=== PATIENT | female | born 1945 | race Caucasian/White ===

== ENCOUNTER → 2020-04-17 08:15 | Outpatient (REF) | payer OTHER, SELFPAY ==
--- NOTE | 2020-04-17 08:30 | CA_ITS ---
Transthoracic Echocardiogram Patient (Last, First, Middle): Klaudia Dow M Gender: Female Date of : 1945 Age: 74 Procedure Date: 04/17/2020 Procedure Type: Transthoracic Echocardiogram Location: OP Height: 165.1 cm Weight: 117.94 kg BSA: 2.21 m2 Heart Rate: bpm BP: 110 / 60 mmHg Quality Control Checker: Chuck MD: Iveth Cowart MD Catering Driver: Gordon Reveles MD Symptoms: [facility] [place] [facility] [place] Study Quality: Technically Difficult ECG Rhythm: Sinus Conclusions: - 1. Normal LV systolic function with grade 1 diastolic dysfunction 2. Normal cardiac valvular Doppler 3. Normal RV systolic pressure 4. No pericardial effusion Findings Procedure Information Contrast agent, definity, is being given per protocol without apparent complications. Left Ventricle Normal left ventricular size, thickness, and systolic function. The visually estimated ejection fraction is between 60-65%. Spectral Doppler is indicative of an impaired relaxation filling pattern. E/E prime ratio is <8, consistent with normal filling pressures. Evidence suggests grade I (mild) diastolic dysfunction. Right Ventricle Normal right ventricular cavity size and systolic function. Atria Both atria are normal in size. Interatrial shunt cannot be excluded. Aortic Valve The aortic valve structure and function is likely normal. There is no aortic valve stenosis. There is no aortic valve regurgitation. Mitral Valve Likely normal mitral valve structure and function. There is trace mitral valve regurgitation. There is no mitral valve stenosis. Pulmonic Valve The pulmonic valve was not well visualized. Tricuspid Valve The tricuspid valve was not well visualized. There is trace tricuspid valve regurgitation. The right ventricular systolic pressure is normal. The right ventricular systolic pressure is 23 mmHg. There is no evidence of pulmonary hypertension. Great Vessels The aorta was not well visualized. The pulmonary artery was not well visualized. Venous The inferior vena cava was not well visualized. Pericardium/Pleural There is no evidence of pericardial effusion. Prior Study Comparison No prior study available for comparison. Measurements 2D Linear Measurements RVIDd: 2.98 RVIDd Index: 1.35 IVSd: 0.93 0.6-0.9/0.6-1.0 cm LVIDd: 5.43 3.9-5.3/4.2-5.9 cm LVIDd Index: 2.46 2.4-3.2/2.2-3.1 cm/m2 LVIDs: 3.42 2.0-3.6 cm LVPWd: 0.95 0.7-1.1 cm Ao Root: 3.20 2.1-3.5 cm LA Diam: 4.30 2.7-3.8/3.0-4.0 cm LAIDs Index: 1.95 1.5-2.3 cm/m2 LV Mass: 239.07 67-162/88-224 g LV Mass Index: 108.18 43-95/49-115 g/m2 LVOT Diam: 2.00 3.0+(-)1.3 cm 2D Systolic Function EF 4C: 72.00 >55% EF 2C: 72.60 >55% EF BiP: 71.40 >55% Mitral Valve MV Pk E: 0.63 MV PK A: 0.86 MV Decel Time: 194.00 E/A: 0.70 E'Lateral: 8.99 E'Medial: 5.80 E/E' Med: 10.80 E/E' Lat: 7.00 Aortic Valve AoV Pk Nilson: 1.75 AoV Mn Nilson: 1.43 AoV VTI: 0.33 AoV Pk Grad: 12.00 Aov Mn Grad: 9.00 ROSSY Cont.VTI: 2.82 LVOT LVOT Pk Nilson: 1.77 LVOT Mn Nilson: 1.01 LVOT VTI: 0.30 LVOT Pk Grad: 13.00 LVOT Mn Grad: 5.00 LVOT Diam: 2.00 LVOT Area: 3.14 Diastolic Function MV Pk E: 0.63 MV Pk A: 0.86 E/A: 0.70 E'Medial: 5.80 E/E' Med: 10.80 E' Laterial: 8.99 E/E' Lat: 7.00 Tricuspid Valve TR Pk Nilson: 2.22 TR Pk Grad: 20.00 RA Press: 3.00 RVSP: 23.00 Great Vessels Aorta Ao Root-2D: 3.20 2.0-3.7 cm Ao Asc: 3.40 2.1-3.4 cm Ao Arch: 3.10 Updated in Other Vendor System with Status of Final Gordon Reveles MD electronically signed on 04/17/2020 3:35:59 PM with status of Final
== END ==
LOC: HO.CARD 08:15
PROVIDERS: PCP Internal Medicine; Visit Provider Internal Medicine
DX: R07.2 Precordial pain (principal)
CPT/HCPCS: 93306; Q9957

== ENCOUNTER → 2020-04-22 14:28 | Outpatient (BNVA) | payer OTHER, SELFPAY | PROVIDERS: PCP Internal Medicine; Referring Provider Internal Medicine; Visit Provider Internal Medicine | DX: Z76.89 Persons encountering health services in other specified circumstances (principal) ==

== ENCOUNTER → 2020-04-30 07:45 | Outpatient (REF) | payer OTHER, SELFPAY ==
--- NOTE | 2020-04-30 | NM_ITS ---
Lexiscan Myocardial perfusion study Indication: Chest pain, abnormal EKG, assess for coronary disease and ischemia Technique: The patient was brought in for a Lexiscan perfusion study on 04/30/2020 and was injected 0.4 mg of Lexiscan intravenously. Within a minute of this injection 40 mCi of sestamibi was given intravenously. Images were obtained using the SPECT gamma camera interlaced with the gating device. Images were obtained in supine position. Resting perfusion study was performed on 05/01/2020. Patient was administered 40 mCi of sestamibi intravenously at rest. Images were then obtained in supine position. Total DLP 165mGy-cm. Images were processed with the software and compared side to side in short axis, horizontal long axis and vertical long axis views. Findings: Raw acquisition was reviewed. The stress perfusion study showed no significant perfusion abnormality. Both uncorrected as well as CT attenuation corrected images were reviewed. The gated study shows normal LV systolic function with calculated LVEF of >75%. LV cavity is normal in size. The gated study shows normal wall thickening and contraction of segments. Resting study shows no significant perfusion abnormality. Gating at rest reveals normal wall motion with ejection fraction at > 75%. The findings are consistent with no reversible or fixed perfusion abnormality. Impression: 1. Myocardial perfusion imaging study shows normal myocardial perfusion. No evidence of any ischemia or infarction. 2. Gated LVEF is > 75%. 3. Transient ischemic dilatation not present. EKG component of the test reported separately.
--- NOTE | 2020-04-30 07:57 | CA_ITS ---
Acquisition Time: 2020-04-30 08:09:05 Total Exercise Time: 00:02:00 Test Indications: Chest Pain Medications: ASA ALLOPURINOL GLIPIZIDE HCTZ INSULIN LOSARTAN MAGNESIUM OMEPRAZOLE Protocol: LEXISCAN Max HR: 114 BPM 77% of Pred: 147 BPM Max BP: 130/088 mmHG Max Work Load: 1.0 METS Pharmacological stress test using Lexiscan while sitting and kicking her feet. Tolerated well. Denies any anginal sx. EKG without any arrhythmias, non-diagnostic for ischemia. Nuclear images to follow. Normotensive response to test. Test reviewed with Dr. Hill Referred By: Vladimir Hill Overread By: Tamie Tomas
== END ==
LOC: HO.CARD 07:45
PROVIDERS: Visit Provider Internal Medicine
DX: R07.2 Precordial pain (principal)
CPT/HCPCS: 78452; 93017; A9500; J0280; J2785

== ENCOUNTER → 2020-05-11 11:51 | Outpatient (BNVA) | payer OTHER, SELFPAY | PROVIDERS: PCP Internal Medicine; Referring Provider Internal Medicine; Visit Provider Internal Medicine | DX: Z76.89 Persons encountering health services in other specified circumstances (principal) ==

== ENCOUNTER 2020-07-26 06:30 | Emergency (ER) | payer OTHER, SELFPAY ==
[2020-07-26 06:43] VITALS: BP 127/77; PULSE 98; RESP 17; TEMP 36.9; O2SAT 95; BMI 43.2
--- NOTE | 2020-07-26 07:06 | ECG_ITS ---
Test Reason : SOB Blood Pressure : / mmHG Vent. Rate : 096 BPM Atrial Rate : 096 BPM P-R Int : 176 ms QRS Dur : 076 ms QT Int : 362 ms P-R-T Axes : 028 -20 035 degrees QTc Int : 457 ms Normal sinus rhythm Low voltage QRS Borderline ECG When compared with ECG of 06-JAN-2015 16:11, No significant change was found Referred By: Shaina Hilliard Electronically Signed By:Kota Ramos
--- NOTE | 2020-07-26 07:07 | ED_ITS ---
HPI - Nausea/Vomiting/Diarrhea General Chief complaint: Nausea/Vomiting/Diarrhea Stated complaint: SOB Time Seen by Provider: 07/26/20 06:57 Source: patient Mode of arrival: ambulatory Limitations: no limitations History of Present Illness HPI Narrative: Patient comes to emergency room complaining of nausea vomiting and diarrhea for 5 days. Patient also complaining of diffuse abdominal cramping. Patient states for the last 5 days she has been unable to eat or drink due to the nausea and vomiting. Patient states that she was diagnosed with COVID-19 on July 13. From that time until last week she was doing well. Patient denies any respiratory symptoms, states the coughing is stable, no shortness of breath, no chest pain MD elicited complaint: nausea, vomiting, diarrhea and abdominal pain (Cramping) Related Data Home Medications Medication Instructions Recorded Confirmed allopurinol 300 mg tablet 300 mg PO DAILY 04/22/20 05/11/20 aspirin 81 mg chewable tablet 1 tab PO DAILY 04/22/20 05/11/20 docusate sodium 100 mg capsule 100 mg PO BID 04/22/20 05/11/20 exenatide microspheres 2 mg/0.85 2 mg SUBCUT QWEEK 04/22/20 05/11/20 mL subcutaneous auto-injector glipizide 5 mg tablet 10 mg PO BID 04/22/20 05/11/20 hydrochlorothiazide 25 mg tablet 25 mg PO DAILY 04/22/20 05/11/20 insulin aspart U-100 100 unit/mL 2 - 12 unit SUBCUT TID 04/22/20 05/11/20 (3 mL) subcutaneous pen insulin detemir U-100 100 unit/mL 42 unit SUBCUT BEDTIME 04/22/20 05/11/20 (3 mL) subcutaneous pen losartan 100 mg tablet 100 mg PO DAILY 04/22/20 05/11/20 magnesium oxide 400 mg (241.3 mg 400 mg PO DAILY 04/22/20 05/11/20 magnesium) tablet nystatin 100,000 unit/gram topical TOPICAL BID 04/22/20 05/11/20 cream omeprazole 20 mg capsule,delayed 20 mg PO QAM 04/22/20 05/11/20 release tramadol 50 mg tablet 50 mg PO Q12H PRN 04/22/20 05/11/20 Previous Rx's Medication Instructions Recorded cefpodoxime 200 mg PO BID #14 tab 07/26/20 ondansetron HCl [Zofran] 4 mg PO Q6H PRN #14 tab 07/26/20 Allergies Allergy/AdvReac Type Severity Reaction Status Date / Time codeine [CODEINE] Allergy Intermediate NAUSEA & Verified 07/26/20 06:57 VOMITING, vomiting lisinopril [LISINOPRIL] Allergy Intermediate COUGH, Verified 07/26/20 06:57 Coughing sulfamethoxazole Allergy Intermediate RASH Verified 07/26/20 06:57 [From BACTRIM] Review of Systems Review of Systems: Constitutional : No Weight loss, No Fever, No Chills, No Night Sweats, No Fatigue, No Malaise ENT/Mouth : No Hearing loss, No Ear Pain, No Nasal Congestion, No Sinus Pain, No Hoarseness, No sore throat, No Rhinorrhea, No Swallowing Difficulty Eyes: No Eye Pain, No Swelling, No Redness, No Foreign Body, No Discharge, No Vision Changes Cardiovascular : No Chest Pain, No SOB, No Dyspnea on Exertion, No Orthopnea, No Edema, No Palpitations Respiratory : No Cough, No Sputum, No Wheezing, No Smoke Exposure, No Dyspnea Gastrointestinal : Patient complaining of nausea, vomiting, diarrhea, , diffuse abdominal cramping, No Hematochezia, No Melena Genitourinary : no irregular bleeding, No Dysuria, No Urinary Frequency, No Hematuria, No Urinary Incontinence, No Urgency, No Flank Pain, No Urinary Flow Changes, No Hesitancy Musculoskeletal : No joint pain, No Myalgias, No Joint Swelling Skin : No Skin Lesions, No rash Neuro : No Weakness, No Numbness, No Paresthesias, No Loss of Consciousness, No Dizziness, No Headache Psych : No Anxiety/Panic, No Depression, No SI/HI/AH/VH, No Social Issues, Heme/Lymph: No Bruising, No Bleeding,No Lymphadenopathy Endocrine : No Polyuria, No Polydipsia, No Temperature Intolerance [facility] Past Medical History Medical History Diabetes mellitus type 2, controlled, without complications Essential hypertension Hyperlipidemia, unspecified Obstructive sleep apnea Surgical History History of knee replacement Family History Family History Father No problems noted. Mother Heart disease Brother Atrial fibrillation Brother Atrial fibrillation Brother Atrial fibrillation Social History Social History Alcohol intake: never Smoking Status: Never smoker Use of substances other than those prescribed or required for medical reasons: No Advance Directives: No Advance Directives Information Provided: No Physical Exam Vital Signs: Vital Signs: Last Vital Signs Temp 98.6 F 07/26/20 14:00 Pulse 107 H 07/26/20 14:00 Resp 18 07/26/20 14:00 BP 126/68 07/26/20 14:00 Pulse Ox 95 07/26/20 14:00 Body Mass Index 43.2 Appearance: Alert. Oriented X3. No acute distress. Eyes: Pupils equal, round and reactive to light. ENT: Pharynx normal. Neck: Normal inspection. Neck supple. No lymph nodes noted. No crepitus CVS: Normal heart rate and rhythm. Pulses normal. Normal S1 and S2 Respiratory: No respiratory distress. Breath sounds normal. No Wheezing. No rales , oxygen saturation 93% on room air Abdomen: Soft , no tenderness to deep palpation in all quadrants, No rigidity. N o distention. good BS x4 Skin: Skin warm and dry. Normal skin color. Normal skin turgor. Extremities: No lower extremity edema. No lower extremity edema. No Lacerations. No Rash Neuro: Oriented X 3. No motor deficit. No sensory deficit. Moving all extermities. No slurred speech. Course Course Course Narrative: It was noted on the patient's labs at her creatinine is elevated from baseline. Patient receiving fluids, chemistry will be repeated after the fluids. Creatinine improved to 1.48, patient states that she feels much better, patient was able to ambulate by herself to the bathroom, oxygen saturation remained approximately at 92%, patient feeling short of breath. Discussed with the patient that she has a urinary tract infection, patient will follow-up with her primary care physician. MDM - Nausea/Vomiting/Diarrhea Lab Data Result diagrams: 07/26/20 08:33 07/26/20 12:27 Labs: Lab Results 07/26/20 07/26/20 07/26/20 Range/Units 08:33 08:33 10:54 WBC 1.7 L (4.8-10.8) X10*3/uL RBC 3.91 L (4.20-5.50) X10*6/uL Hgb 12.5 (12.0-16.0) g/dl Hct 37.9 (37-47) % MCV 96.9 (80-98) fL MCH 32.0 (27.0-33.0) pg MCHC 33.0 (31.0-35.0) g/dl RDW 13.7 (11.0-16.0) % Plt Count 86 L (160-400) X10*3/uL MPV 10.7 (9.4-12.3) fL Immature Gran % (Auto) 0.6 H (0.0-0.4) % Neut % (Auto) 74.7 H (45-73) % Lymph % (Auto) 18.1 L (20-40) % Carroll % (Auto) 6.6 (2-11) % Eos % (Auto) 0.0 (0-4) % Baso % (Auto) 0.0 (0-2) % Lymph # (Auto) 0.3 L (1.2-4.9) X10*3/uL Carroll # (Auto) 0.1 (0.1-1.2) X10*3/uL Eos # (Auto) 0.0 (0.0-0.4) X10*3/uL Baso # (Auto) 0.0 (0.0-0.2) X10*3/uL Abs Immat Gran (auto) 0.01 (0.00-0.03) X10*3/uL Absolute Neuts (auto) 1.2 L (2.0-8.3) X10*3/uL Absolute Nucleated RBC 0.000 (0.0-0.012) X10*3/uL Nucleated RBC % (auto) 0.0 (0.0-0.2) /100WBC Smear Tech's Comments VERIFIED Sodium 139 (135-145) mmol/L Potassium 4.2 (3.3-5.1) mmol/l Chloride 111 H (96-108) mmol/L Carbon Dioxide 19 L (22-29) mmol/L Anion Gap 13 (12-20) BUN 41 H (9-16) mg/dL Creatinine 1.80 H (0.5-1.4) mg/dL Estim Creat Clear Calc 35.2 Estimated GFR 28 Random Glucose 178 H (60-115) mg/dL Calcium 8.7 (8.4-10.2) mg/dL Total Bilirubin 0.8 (0.0-1.0) mg/dL Direct Bilirubin 0.5 (0.0-0.5) mg/dL AST 44 H (5-31) U/L ALT 27 (0-31) U/L Alkaline Phosphatase 54 (39-117) U/L Total Protein 8.8 H (6.5-8.0) g/dL Albumin 3.4 L (3.5-5.0) g/dL Lipase 145 H (8-78) U/L Urine Color YELLOW Urine Appearance HAZY Urine pH 6.0 (5.0-8.0) Ur Specific Fenton 1.025 (1.005-1.025) Urine Protein 1+ H (NEG-TRACE) MG/DL Urine Glucose (UA) NEG (NEG) MG/DL Urine Ketones NEG (NEG) MG/DL Urine Blood 2+ H (NEG) Urine Nitrite POS H (NEG) Ur Leukocyte Esterase TRACE H (NEG) Urine RBC 10-14 H (0) /HPF Urine WBC 15-29 H (0-4) /HPF Ur Squamous Epith Cells 1+ /LPF Amorphous Sediment 1+ /LPF Urine Bacteria 2+ /LPF Granular Casts 0-2 /LPF Urine Mucus TRACE /LPF 07/26/20 Range/Units 12:27 WBC (4.8-10.8) X10*3/uL RBC (4.20-5.50) X10*6/uL Hgb (12.0-16.0) g/dl Hct (37-47) % MCV (80-98) fL MCH (27.0-33.0) pg MCHC (31.0-35.0) g/dl RDW (11.0-16.0) % Plt Count (160-400) X10*3/uL MPV (9.4-12.3) fL Immature Gran % (Auto) (0.0-0.4) % Neut % (Auto) (45-73) % Lymph % (Auto) (20-40) % Carroll % (Auto) (2-11) % Eos % (Auto) (0-4) % Baso % (Auto) (0-2) % Lymph # (Auto) (1.2-4.9) X10*3/uL Carroll # (Auto) (0.1-1.2) X10*3/uL Eos # (Auto) (0.0-0.4) X10*3/uL Baso # (Auto) (0.0-0.2) X10*3/uL Abs Immat Gran (auto) (0.00-0.03) X10*3/uL Absolute Neuts (auto) (2.0-8.3) X10*3/uL Absolute Nucleated RBC (0.0-0.012) X10*3/uL Nucleated RBC % (auto) (0.0-0.2) /100WBC Smear Tech's Comments Sodium 142 (135-145) mmol/L Potassium 4.1 (3.3-5.1) mmol/l Chloride 115 H (96-108) mmol/L Carbon Dioxide 20 L (22-29) mmol/L Anion Gap 11 L (12-20) BUN 37 H (9-16) mg/dL Creatinine 1.48 H (0.5-1.4) mg/dL Estim Creat Clear Calc 42.8 Estimated GFR 34 Random Glucose 141 H (60-115) mg/dL Calcium 7.9 L D (8.4-10.2) mg/dL Total Bilirubin (0.0-1.0) mg/dL Direct Bilirubin (0.0-0.5) mg/dL AST (5-31) U/L ALT (0-31) U/L Alkaline Phosphatase (39-117) U/L Total Protein (6.5-8.0) g/dL Albumin (3.5-5.0) g/dL Lipase (8-78) U/L Urine Color Urine Appearance Urine pH (5.0-8.0) Ur Specific Fenton (1.005-1.025) Urine Protein (NEG-TRACE) MG/DL Urine Glucose (UA) (NEG) MG/DL Urine Ketones (NEG) MG/DL Urine Blood (NEG) Urine Nitrite (NEG) Ur Leukocyte Esterase (NEG) Urine RBC (0) /HPF Urine WBC (0-4) /HPF Ur Squamous Epith Cells /LPF Amorphous Sediment /LPF Urine Bacteria /LPF Granular Casts /LPF Urine Mucus /LPF Discharge Plan Discharge Clinical Impression: Vomiting, Diarrhea Urinary tract infection Qualifiers: Urinary tract infection type: site unspecified Hematuria presence: without hematuria Qualified Code(s): N39.0 - Urinary tract infection, site not specified Patient Disposition: Home, Self-Care Instructions: Urinary Tract Infection in Older Adults (ED) Prescriptions: New cefpodoxime 200 mg tablet 200 mg PO BID Qty: 14 RF: 0 ondansetron HCl [Zofran] 4 mg tablet 4 mg PO Q6H PRN (Reason: nausea and vomiting) Qty: 14 RF: 0 No Action hydrochlorothiazide 25 mg tablet 25 mg PO DAILY RF: 0 losartan 100 mg tablet 100 mg PO DAILY RF: 0 Bydureon BCise 2 mg/0.85 mL auto-injector 2 mg subcut QWEEK RF: 0 Levemir FlexTouch U-100 Insuln 100 unit/mL (3 mL) insulin pen 42 unit subcut BEDTIME RF: 0 aspirin 81 mg tablet,chewable 1 tab PO DAILY RF: 0 magnesium oxide 400 mg (241.3 mg magnesium) tablet 400 mg PO DAILY RF: 0 allopurinol 300 mg tablet 300 mg PO DAILY RF: 0 docusate sodium 100 mg capsule 100 mg PO BID RF: 0 nystatin 100,000 unit/gram cream topical BID RF: 0 insulin aspart U-100 100 unit/mL (3 mL) insulin pen 2 - 12 unit subcut TID RF: 0 glipizide 5 mg tablet 10 mg PO BID RF: 0 tramadol 50 mg tablet 50 mg PO Q12H PRN (Reason: pain) RF: 0 omeprazole 20 mg capsule,delayed release(DR/EC) 20 mg PO QAM RF: 0
--- NOTE | 2020-07-26 07:37 | XR_ITS ---
EXAMINATION: XR CHEST XR ABDOMEN CLINICAL INFORMATION: Evaluate for air-fluid levels, low suspicion, known colonic, worsening cough COMPARISON: None TECHNIQUE: Frontal view of the chest and 2 views of the abdomen were obtained FINDINGS: Patchy bilateral airspace opacities throughout the bilateral lung rojas. There is no pneumothorax. The trachea is midline. The cardiac mediastinal silhouette is not enlarged. Aorta is mildly tortuous with atherosclerotic calcifications. There is no pleural effusions. No dilated loops of bowel visualized. Air is noted throughout the colon. Bowel gas pattern is otherwise nonobstructive. Degenerative changes of the thoracolumbar spine. Left hip arthroplasty in place, grossly intact. XR/XR chest 1V IMPRESSION: 1. Patchy bilateral airspace opacities throughout the bilateral lung rojas. 2. No dilated loops of bowel visualized to suggest obstruction.
--- NOTE | 2020-07-26 07:37 | XR_ITS ---
EXAMINATION: XR CHEST XR ABDOMEN CLINICAL INFORMATION: Evaluate for air-fluid levels, low suspicion, known colonic, worsening cough COMPARISON: None TECHNIQUE: Frontal view of the chest and 2 views of the abdomen were obtained FINDINGS: Patchy bilateral airspace opacities throughout the bilateral lung rojas. There is no pneumothorax. The trachea is midline. The cardiac mediastinal silhouette is not enlarged. Aorta is mildly tortuous with atherosclerotic calcifications. There is no pleural effusions. No dilated loops of bowel visualized. Air is noted throughout the colon. Bowel gas pattern is otherwise nonobstructive. Degenerative changes of the thoracolumbar spine. Left hip arthroplasty in place, grossly intact. XR/XR KUB IMPRESSION: 1. Patchy bilateral airspace opacities throughout the bilateral lung rojas. 2. No dilated loops of bowel visualized to suggest obstruction.
--- NOTE | 2020-07-26 08:21 | PC.NURSE ---
unable to obtain iv access asked chg rn to try.
[2020-07-26] MEDS: 0.9 % Sodium Chloride 1,000 ML 999 ML IVCONT ×2 (08:34→10:53)
[2020-07-26 08:42] LABS: Hematocrit 37.9 % (37-47); Hemoglobin 12.5 g/dl (12.0-16.0); Imm Gran Abs Auto 0.01 X10*3/uL (0.00-0.03); Imm Gran Pct Auto 0.6 % (0.0-0.4); Lymphocytes Absolute Auto 0.3 X10*3/uL (1.2-4.9); Lymphocytes Percent Auto 18.1 % (20-40); MANUAL DIFF FLAG SCAN; Mean Corpuscular Volume 96.9 fL (80-98); Mean Platelet Volume 10.7 fL (9.4-12.3); Monocytes Absolute Auto 0.1 X10*3/uL (0.1-1.2); Monocytes Percent Auto 6.6 % (2-11); Neutrophils Absolute Auto 1.2 X10*3/uL (2.0-8.3); Neutrophils Percent Auto 74.7 % (45-73); Red Blood Count 3.91 X10*6/uL (4.20-5.50); Red Cell Distribution Width 13.7 % (11.0-16.0); SCAN SMEAR FLAG 1
[2020-07-26 08:43] LABS: Platelet Count 86 X10*3/uL (160-400); White Blood Count 1.7 X10*3/uL (4.8-10.8)
[2020-07-26] MEDS: ondansetron HCL 4 MG/2 ML VIAL IVPUSH (08:43)
[2020-07-26] MEDS: Dicyclomine HCl 10 MG CAPSULE PO (08:43)
[2020-07-26] MEDS: Loperamide HCl 2 MG CAPSULE 4 MG PO (08:43)
[2020-07-26 08:59] LABS: SLIDE REVIEW VERIFIED
[2020-07-26 09:21] LABS: Alanine Aminotransferase 27 U/L (0-31); Albumin Level 3.4 g/dL (3.5-5.0); Alkaline Phosphatase 54 U/L (39-117); Anion Gap 13 (12-20); Aspartate Amino Transferase 44 U/L (5-31); Bilirubin Direct 0.5 mg/dL (0.0-0.5); Bilirubin Total 0.8 mg/dL (0.0-1.0); Blood Urea Nitrogen 41 mg/dL (9-16); Calcium 8.7 mg/dL (8.4-10.2); Carbon Dioxide 19 mmol/L (22-29); Chloride 111 mmol/L (96-108); Creatinine Clr Calc Pharmacy 35.2; Estimated Glomerular Filt Rate 28; Glucose Random 178 mg/dL (60-115); Potassium 4.2 mmol/l (3.3-5.1); Sodium 139 mmol/L (135-145); Total Protein 8.8 g/dL (6.5-8.0)
[2020-07-26 09:36] LABS: Lipase 145 U/L (8-78)
[2020-07-26 10:00] VITALS: BP 119/69; PULSE 90; RESP 20; TEMP 36.9; O2SAT 89
--- NOTE | 2020-07-26 10:36 | PC.NURSE ---
pt amb to br with walker no assit, aox4 will discuss with provider as pt is still nauseous
[2020-07-26] MEDS: Prochlorperazine Edisylate 10 MG/2 ML VIAL IVPUSH (10:53)
[2020-07-26 11:00] LABS: Glucose Urine UA NEG (NEG); Leukocyte Esterase Urine TRACE (NEG); Nitrite Urine POS (NEG); Specific Gravity - Urine 1.025 (1.005-1.025); Urine Blood 2+ (NEG); Urine Ketones NEG (NEG); Urine Protein 1+ MG/DL (NEG-TRACE)
[2020-07-26 11:01] LABS: Appearance Urine HAZY; Color Urine YELLOW
[2020-07-26 11:12] LABS: Amorphous Sediment Urine 1+ /LPF; Bacteria Urine 2+ /LPF; Granular Casts Urine 0-2 /LPF; Mucus Urine TRACE /LPF; Squamous Epithelial Cell Urine 1+ /LPF
[2020-07-26 12:00] VITALS: BP 119/55; PULSE 88; RESP 22; TEMP 37.1; O2SAT 95
[2020-07-26 13:03] LABS: Anion Gap 11 (12-20); Blood Urea Nitrogen 37 mg/dL (9-16); Calcium 7.9 mg/dL (8.4-10.2); Carbon Dioxide 20 mmol/L (22-29); Chloride 115 mmol/L (96-108); Creatinine Clr Calc Pharmacy 42.8; Estimated Glomerular Filt Rate 34; Glucose Random 141 mg/dL (60-115); Potassium 4.1 mmol/l (3.3-5.1); Sodium 142 mmol/L (135-145)
[2020-07-26] MEDS: cefTRIAXone sodium 1 GM in 0.9 % Sodium Chloride 50 ML IV (13:08)
[2020-07-26 14:00] VITALS: BP 126/68; PULSE 107; RESP 18; TEMP 37; O2SAT 95
== END 2020-07-26 15:51 | disposition home or self-care (01) ==
PROVIDERS: Emergency Provider Emergency Medicine
DX: N39.0 Urinary tract infection, site not specified (principal); R11.2 Nausea with vomiting, unspecified; R19.7 Diarrhea, unspecified; Z79.899 Other long term (current) drug therapy; Z20.828 Contact with and (suspected) exposure to other viral communicable diseases
CPT/HCPCS: 36415; 71045; 74018; 80048; 80076; 81001; 81003; 83690; 85025; 85060; 87086; 93005; 96361; 96365; 96375; 99284; J0696; J2405

== ENCOUNTER 2020-09-24 10:08 | Outpatient (REF) | payer OTHER, SELFPAY ==
[2020-09-26 10:31] LABS: Calcium (PTHI) 11.7 mg/dL (8.6-10.4); PTHI 16 pg/mL (14-64)
[2020-09-28 04:21] LABS: Calcitonin 3 pg/mL (<=5)
== END 2020-09-24 10:09 | disposition home or self-care (01) ==
LOC: HO.LAB 10:08
PROVIDERS: PCP Internal Medicine; Visit Provider Internal Medicine
DX: E83.52 Hypercalcemia (principal)
CPT/HCPCS: 36415; 82308; 83970

== ENCOUNTER → 2020-09-30 07:20 | Outpatient (BNVA) | payer OTHER, SELFPAY | PROVIDERS: PCP Internal Medicine; Visit Provider Internal Medicine Endocrinology, Diabetes & Metabolism ==

== ENCOUNTER 2020-09-30 08:35 | Outpatient (REF) | payer OTHER, SELFPAY ==
[2020-09-30 11:11] LABS: Alanine Aminotransferase 16 U/L (0-31); Albumin Level 2.3 g/dL (3.5-5.0); Alkaline Phosphatase 55 U/L (39-117); Anion Gap 7 (12-20); Aspartate Amino Transferase 26 U/L (5-31); Bilirubin Total 1.1 mg/dL (0.0-1.0); Blood Urea Nitrogen 12 mg/dL (9-16); Carbon Dioxide 26 mmol/L (22-29); Chloride 109 mmol/L (96-108); Estimated Glomerular Filt Rate 38; Glucose Random 85 mg/dL (60-115); Magnesium 1.6 mg/dL (1.6-2.6); Phosphorus 3.2 mg/dL (2.7-4.5); Potassium 3.5 mmol/L (3.3-5.1); Sodium 138 mmol/L (135-145); Total Protein 7.9 g/dL (6.5-8.0)
[2020-09-30 11:18] LABS: Calcium 11.8 mg/dL (8.4-10.2)
[2020-09-30 11:29] LABS: Free T4 (Free Thyroxine) 0.76 ng/dL (0.71-1.85); Thyroid Stimulating Hormone 0.08 uIU/mL (0.32-4.0); Vitamin D 25-OH Total 42.7 ng/mL (>30)
[2020-10-01 14:01] LABS: Triiodothyronine T3 Total 92 ng/dL (76-181)
[2020-10-01 18:01] LABS: Thyroglobulin Antibodies <1 IU/mL (< or = 1); Thyroid Peroxidase Antibodies <1 IU/mL (<9)
[2020-10-02 13:36] LABS: Calcium (PTHI) 12.1 mg/dL (8.6-10.4); PES - Abn Protein Band 1 3.4 g/dL (NONE DETECTED); PES-Abn Protein Band 2 0.2 g/dL (NONE DETECTED); PTHI 17 pg/mL (14-64); Prot Elec - Albumin 2.5 g/dL (3.8-4.8); Prot Elec - Alpha1 0.4 g/dL (0.2-0.3); Prot Elec - Alpha2 0.8 g/dL (0.5-0.9); Prot Elec - Beta 1 0.2 g/dL (0.4-0.6); Prot Elec - Beta 2 0.2 g/dL (0.2-0.5); Prot Elec - Gamma 3.7 g/dL (0.8-1.7); Prot Elec - Total Protein 7.7 g/dL (6.1-8.1)
[2020-10-03 10:17] LABS: Alkaline Phosphatase Bone 10.4 mcg/L (5.6-29.0)
[2020-10-04 00:52] LABS: VITAMIN D (1,25 OH) D3 17 pg/mL; Vit D (1,25-Dihydroxy) Total 17 pg/mL (18-72); Vitamin D (1,25 OH) D2 <8 pg/mL
[2020-10-05 15:47] LABS: Thyroid Stimulating Immunoglob <89 % baseline (<140)
[2020-10-06 15:37] LABS: Thyrotropin Receptor Antibody <1.00 IU/L (<=2.00)
[2020-10-06 16:46] LABS: Parathyroid Hormone Related Pr 19 pg/mL (14-27)
[2020-10-07 11:02] LABS: PEU-Protein Creat Ratio Rand 7.753 (0.021-0.161); PEU-Rand. Prot/Creat Ratio 7753 mg/g creat (21-161); PEU-Random Ur. Gamma Globulin 3 %; PEU-Random Urine A1 Globulin 1 %; PEU-Random Urine A2 Globulin 2 %; PEU-Random Urine Albumin 1 %; PEU-Random Urine Beta Globulin 93 %; PEU-Random Urine Creatinine 186 mg/dL (20-275); PEU-Random Urine Protein 1442 mg/dL (5-24)
== END 2020-09-30 08:36 | disposition home or self-care (01) ==
LOC: HO.10HDL 08:35
PROVIDERS: Visit Provider Internal Medicine Endocrinology, Diabetes & Metabolism
DX: E83.52 Hypercalcemia (principal); E05.90 Thyrotoxicosis, unspecified without thyrotoxic crisis or storm
CPT/HCPCS: 80053; 82306; 82330; 82570; 82652; 83519; 83520; 83735; 83970; 84075; 84100; 84155; 84156; 84165; 84166; 84439; 84443; 84445; 84480; 86376; 86800

== ENCOUNTER 2020-10-02 10:06 | Outpatient (REF) | payer OTHER, SELFPAY ==
[2020-10-02 11:05] LABS: Total Volume 24 Hour Urine 2050 mL
[2020-10-02 11:14] LABS: Creatinine, 24Hr Urine 0.6 G/Day (1.0-2.0); Creatinine, mg/dL 31.08
[2020-10-03 17:22] LABS: Calcium, 24 Hr Urine 232 mg/24 h; Calcium/Creatinine Ratio 353 mg/g creat (30-275); Creatinine 24Hr Urine 0.66 g/24 h (0.50-2.15)
== END 2020-10-02 10:07 | disposition home or self-care (01) ==
LOC: HO.10HDLNP 10:06
PROVIDERS: Visit Provider Internal Medicine Endocrinology, Diabetes & Metabolism
DX: E83.52 Hypercalcemia (principal)
CPT/HCPCS: 82340; 82570

== ENCOUNTER 2020-10-06 14:55 | Outpatient (REF) | payer OTHER, SELFPAY ==
--- NOTE | ~2020-10-06 | XR_ITS ---
EXAMINATION: XR SKELETAL SURVEY CLINICAL INFORMATION: Multiple myeloma not having achieved remission COMPARISON: None TECHNIQUE: Skeletal survey FINDINGS: Skull: Unremarkable. No lytic lesion. CHEST: Unremarkable. Cervical spine: Limited but no fracture or bone lesion Thoracic spine: Multilevel degenerative spondylosis and degenerative disc changes of the midthoracic spine. No fracture. Lumbar spine: Mild curvature to the left. Degenerative spondylosis and degenerative disc disease at L5-S1. Lower lumbar spine facet arthritis. Atherosclerotic disease. Pelvis: Left hip replacement. Mild arthritis of the right hip joint. No fracture or bone lesion. Bilateral upper extremities: No fracture or bone lesion Right lower extremities: Mild arthritis at the right hip joint. Question lucency in the right proximal medial femoral shaft just inferior to the lesser trochanter versus osteopenia. Osteopenia and arthritis at the right knee. Left lower extremity: Left hip replacement. Left knee replacement. Osteopenia at the knee. Question lucency in the left distal femoral shaft versus osteopenia. There is mild soft tissue arterial calcification. XR/XR bone survey IMPRESSION: No fracture or definite bony lesion. Osteopenia versus lucency in the right medial femoral shaft just inferior to the lesser trochanter and left distal femoral shaft. Left hip and knee replacements. Degenerative changes of the spine.
== END 2020-10-06 14:56 | disposition home or self-care (01) ==
LOC: HO.XRAY 14:55
PROVIDERS: Visit Provider Internal Medicine Medical Oncology
DX: C90.00 Multiple myeloma not having achieved remission (principal)
CPT/HCPCS: 77075

== ENCOUNTER 2020-10-08 15:55 | Emergency (ER) | payer OTHER, SELFPAY ==
--- NOTE | ~2020-10-08 | US_ITS ---
EXAMINATION: US VENOUS ULTRASOUND WITH DOPPLER LOWER EXTREMITY, BILATERAL CLINICAL INFORMATION: Bilateral leg edema COMPARISON: None TECHNIQUE: Ultrasound of the deep veins is performed from the hip to the calf with compression sonography and color and pulse Doppler assessment. Spectral analysis with color-flow imaging is performed. FINDINGS: RIGHT: There is normal venous compression and respiratory variation and augmented flow. The visualized common femoral vein, superficial femoral vein, profunda femoral vein, popliteal vein, and the trifurcation region shows no evidence of deep venous thrombosis. Within the popliteal fossa there is a 7.2 x 1.9 x 3.6 cm complex fluid collection containing some calcification. No popliteal artery aneurysm. LEFT: From the level of the external iliac vein to the popliteal vein and there appears to be some synechiae present as well as some high density filling defect and wall thickening consistent with recanalization of chronic deep venous thrombosis. No definite occlusive disease is present however no previous studies are available for comparison. There is no significant popliteal fossa cyst. No popliteal artery aneurysm. US/US venous duplex LE BI IMPRESSION: Right lower extremity popliteal fossa cyst without evidence of acute deep venous thrombosis of the right lower extremity. Findings with the appearance of chronic deep venous thrombosis with recanalization of the left lower extremity from the external iliac vein to the popliteal vein. No totally occlusive disease seen. This critical result was discussed with Dr. Millie Cowart at 4:50 PM on October 08, 2020 and it was ascertained that the content and urgency of the report was understood at the time of direct communication.
--- NOTE | ~2020-10-08 | CT_ITS ---
EXAMINATION: CT ABDOMEN AND PELVIS WITH CONTRAST CLINICAL INFORMATION: Abdominal pain and history of pancreatitis COMPARISON: None TECHNIQUE: Multidetector volumetric images were obtained from the superior aspect of the liver through the pubic symphysis following administration 85 mL of Omnipaque 350 intravenous contrast. Sagittal and coronal reformatted images were obtained on the technologist's workstation. Oral contrast: No This CT examination was performed using dose optimization techniques as appropriate, variously including the following: *Automated exposure control *Adjustment of mA and/or kV according to patient size (this includes techniques or standardized protocols for targeted exams where dose is matched to indication/reason for exam; i.e. extremities or head) *Use of iterative reconstruction technique DLP: 985 mGy-cm FINDINGS: LUNG BASES: The lungs are hyperinflated with bibasilar linear atelectasis. The heart size is normal. LIVER, GALLBLADDER, AND BILIARY TREE: The liver is normal in size, shape, and attenuation. No focal hepatic lesion or biliary ductal dilatation is present. The gallbladder is not visualized. There is a surgical staple just to the left hepatic lobe from previous intervention.. PANCREAS: Mild haziness surrounding the pancreatic head and uncinate process suspicious for acute pancreatitis. The body and tail of pancreas is unremarkable. SPLEEN: Unremarkable. ADRENAL GLANDS: The bilateral adrenal glands are unremarkable. KIDNEYS AND URETERS: The kidneys are normal in size, shape, and attenuation. No hydronephrosis, hydroureter, or calculi seen. No perinephric stranding. BLADDER: Unremarkable. GASTROINTESTINAL TRACT: Scattered stool, diverticula and gas seen throughout the colon without distention. The small bowel loops are normal caliber. ABDOMINAL WALL: No significant hernia is appreciated. LYMPH NODES: Normal. VASCULAR: There is absence cortical calcification of abdominal aorta without aneurysmal dilatation. PELVIC VISCERA: Unremarkable. OSSEOUS STRUCTURES: There is total left hip arthrogram plastic. There are degenerative disc changes at L4-L5 and L5-S1 disc levels. No fracture or lytic process. CT/CT abdomen pelvis w con IMPRESSION: Findings highly suggestive of acute pancreatitis involving the head and the body of the pancreas. Gallbladder is not seen. There is mild constipation.
[2020-10-08 16:09] VITALS: BP 114/71; PULSE 97; RESP 18; TEMP 36.7; O2SAT 98; BMI 38.2
--- NOTE | 2020-10-08 16:19 | ED_ITS ---
HPI - Weakness General Chief complaint: Dizziness Stated complaint: dvt Time Seen by Provider: 10/08/20 16:18 Source: patient Mode of arrival: ambulatory Limitations: no limitations History of Present Illness HPI Narrative: History of pancreatitis diabetes sleep apnea hypertension and questionable multiple myeloma had COVID-19 infection in 08/06 since then patient has been feeling weak poor appetite feel full after eating solid food only surviving on liquids patient had multiple CT scan of abdomen with negative r esults and plan to see fiscal agent for further evaluation patient still not confirm that she has multiple myeloma per oncologist patient denies any nausea or vomiting no diarrhea no significant abdominal pain no fever no urinary complaints shortness of breath no chest pain MD Complaint: generalized weakness Related Data Home Medications Medication Instructions Recorded Confirmed allopurinol 300 mg tablet 300 mg PO DAILY 04/22/20 10/06/20 aspirin 81 mg chewable tablet 1 tab PO DAILY 04/22/20 10/06/20 docusate sodium 100 mg capsule 100 mg PO BID 04/22/20 10/06/20 insulin aspart U-100 100 unit/mL 2 - 12 unit SUBCUT TID 04/22/20 10/06/20 (3 mL) subcutaneous pen losartan 100 mg tablet 100 mg PO DAILY 04/22/20 10/06/20 nystatin 100,000 unit/gram topical unit TOPICAL BID 04/22/20 09/30/20 cream omeprazole 20 mg capsule,delayed 20 mg PO QAM 04/22/20 10/06/20 release amlodipine 5 mg tablet 5 mg PO DAILY 09/30/20 10/06/20 insulin detemir U-100 100 unit/mL 32 unit SUBCUT BEDTIME ml 09/30/20 10/06/20 (3 mL) subcutaneous pen docusate sodium [Colace] 50 mg PO BID 10/06/20 10/06/20 polyethylene glycol 3350 [Miralax] 17 g PO DAILY 10/06/20 10/06/20 sodium phosphates [Fleet Enema] 118 ml UT BEDTIME PRN MDD 10/06/20 10/06/20 constipation Previous Rx's Medication Instructions Recorded ondansetron HCl [Zofran] 4 mg PO Q6H PRN #14 tab 07/26/20 Allergies Allergy/AdvReac Type Severity Reaction Status Date / Time codeine [CODEINE] Allergy Intermediate NAUSEA & Verified 07/26/20 06:57 VOMITING, vomiting lisinopril [LISINOPRIL] Allergy Intermediate COUGH, Verified 07/26/20 06:57 Coughing sulfamethoxazole Allergy Intermediate RASH Verified 07/26/20 06:57 [From BACTRIM] Review of Systems Review of Systems: Constitutional :++ Weight loss, No Fever, No Chills ENT/Mouth : No sore throat, No Rhinorrhea Eyes: No Eye Pain, No Swelling Cardiovascular : No Chest Pain, no palpitations Respiratory : No Cough, No Sputum, no shortness of breath Gastrointestinal : no Nausea, No Vomiting, No Diarrhea, No abdominal Pain, no black stools Genitourinary : No Dysuria, No Urinary Frequency Musculoskeletal : No joint pain, No Myalgias, No Joint Swelling Skin : No Skin Lesions, No rash Neuro : No Weakness, No Numbness, No Dizziness, No Headache Psych : No Anxiety/Panic, No Depression Heme/Lymph: No Bruising, No Lymphadenopathy Endocrine : No Polyuria, No Polydipsia All other systems reviewed and are negative [facility] Past Medical History Medical History Diabetes mellitus type 2, controlled, without complications Essential hypertension Hypercalcemia Hyperlipidemia, unspecified Hypoglycemia unawareness associated with type 2 diabetes mellitus Obstructive sleep apnea Pancytopenia Subclinical hyperthyroidism Surgical History History of knee replacement History of left hip replacement Family History Family History Father No problems noted. Mother Heart disease Brother Atrial fibrillation Brother Atrial fibrillation Brother Atrial fibrillation Social History Social History Alcohol intake: former Smoking Status: Former smoker Physical Exam Vital Signs: Vital Signs: Last Vital Signs Temp 98.0 F 10/08/20 20:26 Pulse 98 10/08/20 20:26 Resp 16 10/08/20 20:26 BP 126/65 10/08/20 20:26 Pulse Ox 96 10/08/20 20:26 Body Mass Index 38.2 Appearance: Alert. Oriented X3. No acute distress. Eyes: Pupils equal, round and reactive to light. ENT: Pharynx normal. Neck: Normal inspection. Neck supple. CVS: Normal heart rate and rhythm. Pulses normal. Respiratory: No respiratory distress. Breath sounds normal. Abdomen: Soft and nontender. Bowel sounds are present, no mass palpable, no CVA tenderness Skin: Skin warm and dry. Normal skin color. Normal skin turgor. Extremities: No lower extremity edema. Neuro: Oriented X 3. No motor deficit. No sensory deficit. MDM - Weakness MDM Narrative Medical decision making narrative: Patient with mild pancreatitis with unable to eat much advised to stay in the hospital but patient refused as she preferred to be at home and continue take p.o. fluids patient okay to sign AMA Lab Data Attestation: I reviewed the patient's lab results. Result diagrams: 10/08/20 16:56 10/08/20 16:56 Labs: Lab Results 10/08/20 10/08/20 10/08/20 Range/Units 16:56 16:56 16:56 WBC 1.6 L (4.8-10.8) X10*3/uL RBC 3.36 L (4.20-5.50) X10*6/uL Hgb 10.5 L (12.0-16.0) g/dl Hct 32.7 L (37-47) % MCV 97.3 (80-98) fL MCH 31.3 (27.0-33.0) pg MCHC 32.1 (31.0-35.0) g/dl RDW 15.5 (11.0-16.0) % Plt Count 76 L (160-400) X10*3/uL MPV 10.0 (9.4-12.3) fL Immature Gran % (Auto) 0.6 H (0.0-0.4) % Neut % (Auto) 54.9 (45-73) % Lymph % (Auto) 37.7 (20-40) % Faulkner % (Auto) 5.6 (2-11) % Eos % (Auto) 0.6 (0-4) % Baso % (Auto) 0.6 (0-2) % Lymph # (Auto) 0.6 L (1.2-4.9) X10*3/uL Faulkner # (Auto) 0.1 (0.1-1.2) X10*3/uL Eos # (Auto) 0.0 (0.0-0.4) X10*3/uL Baso # (Auto) 0.0 (0.0-0.2) X10*3/uL Abs Immat Gran (auto) 0.01 (0.00-0.03) X10*3/uL Absolute Neuts (auto) 0.9 L (2.0-8.3) X10*3/uL Absolute Nucleated RBC 0.000 (0.0-0.012) X10*3/uL Nucleated RBC % (auto) 0.0 (0.0-0.2) /100WBC Smear Tech's Comments VERIFIED PT 14.5 H (10.8-13.0) SEC INR 1.2 H (0.9-1.1) APTT 25.2 (24.1-38.0) SEC Sodium 139 (135-145) mmol/L Potassium 3.5 (3.3-5.1) mmol/L Chloride 110 H (96-108) mmol/L Carbon Dioxide 24 (22-29) mmol/L Anion Gap 9 L (12-20) BUN 11 (9-16) mg/dL Creatinine 1.27 (0.5-1.4) mg/dL Estim Creat Clear Calc 46.6 Estimated GFR 41 Random Glucose 89 (60-115) mg/dL Calcium 11.4 H (8.4-10.2) mg/dL Magnesium (1.6-2.6) mg/dL Total Bilirubin 1.0 (0.0-1.0) mg/dL Direct Bilirubin 0.6 H (0.0-0.5) mg/dL AST 24 (5-31) U/L ALT 15 (0-31) U/L Alkaline Phosphatase 56 (39-117) U/L B-Natriuretic Peptide (<100) pg/mL Total Protein 7.6 (6.5-8.0) g/dL Albumin 2.0 L (3.5-5.0) g/dL Lipase (8-78) U/L Urine Color Urine Appearance Urine pH (5.0-8.0) Ur Specific Orestes (1.005-1.025) Urine Protein (NEG-TRACE) MG/DL Urine Glucose (UA) (NEG) MG/DL Urine Ketones (NEG) MG/DL Urine Blood (NEG) Urine Nitrite (NEG) Ur Leukocyte Esterase (NEG) Urine RBC (0) /HPF Urine WBC (0-4) /HPF Ur Squamous Epith Cells /LPF Calcium Oxalate Crystal /LPF Urine Bacteria /LPF 10/08/20 10/08/20 10/08/20 Range/Units 16:56 16:56 16:56 WBC (4.8-10.8) X10*3/uL RBC (4.20-5.50) X10*6/uL Hgb (12.0-16.0) g/dl Hct (37-47) % MCV (80-98) fL MCH (27.0-33.0) pg MCHC (31.0-35.0) g/dl RDW (11.0-16.0) % Plt Count (160-400) X10*3/uL MPV (9.4-12.3) fL Immature Gran % (Auto) (0.0-0.4) % Neut % (Auto) (45-73) % Lymph % (Auto) (20-40) % Faulkner % (Auto) (2-11) % Eos % (Auto) (0-4) % Baso % (Auto) (0-2) % Lymph # (Auto) (1.2-4.9) X10*3/uL Faulkner # (Auto) (0.1-1.2) X10*3/uL Eos # (Auto) (0.0-0.4) X10*3/uL Baso # (Auto) (0.0-0.2) X10*3/uL Abs Immat Gran (auto) (0.00-0.03) X10*3/uL Absolute Neuts (auto) (2.0-8.3) X10*3/uL Absolute Nucleated RBC (0.0-0.012) X10*3/uL Nucleated RBC % (auto) (0.0-0.2) /100WBC Smear Tech's Comments PT (10.8-13.0) SEC INR (0.9-1.1) APTT (24.1-38.0) SEC Sodium (135-145) mmol/L Potassium (3.3-5.1) mmol/L Chloride (96-108) mmol/L Carbon Dioxide (22-29) mmol/L Anion Gap (12-20) BUN (9-16) mg/dL Creatinine (0.5-1.4) mg/dL Estim Creat Clear Calc Estimated GFR Random Glucose (60-115) mg/dL Calcium 11.5 H (8.4-10.2) mg/dL Magnesium 1.6 (1.6-2.6) mg/dL Total Bilirubin (0.0-1.0) mg/dL Direct Bilirubin (0.0-0.5) mg/dL AST (5-31) U/L ALT (0-31) U/L Alkaline Phosphatase (39-117) U/L B-Natriuretic Peptide 55 (<100) pg/mL Total Protein (6.5-8.0) g/dL Albumin (3.5-5.0) g/dL Lipase 113 H (8-78) U/L Urine Color Urine Appearance Urine pH (5.0-8.0) Ur Specific Orestes (1.005-1.025) Urine Protein (NEG-TRACE) MG/DL Urine Glucose (UA) (NEG) MG/DL Urine Ketones (NEG) MG/DL Urine Blood (NEG) Urine Nitrite (NEG) Ur Leukocyte Esterase (NEG) Urine RBC (0) /HPF Urine WBC (0-4) /HPF Ur Squamous Epith Cells /LPF Calcium Oxalate Crystal /LPF Urine Bacteria /LPF 10/08/20 Range/Units 18:52 WBC (4.8-10.8) X10*3/uL RBC (4.20-5.50) X10*6/uL Hgb (12.0-16.0) g/dl Hct (37-47) % MCV (80-98) fL MCH (27.0-33.0) pg MCHC (31.0-35.0) g/dl RDW (11.0-16.0) % Plt Count (160-400) X10*3/uL MPV (9.4-12.3) fL Immature Gran % (Auto) (0.0-0.4) % Neut % (Auto) (45-73) % Lymph % (Auto) (20-40) % Faulkner % (Auto) (2-11) % Eos % (Auto) (0-4) % Baso % (Auto) (0-2) % Lymph # (Auto) (1.2-4.9) X10*3/uL Faulkner # (Auto) (0.1-1.2) X10*3/uL Eos # (Auto) (0.0-0.4) X10*3/uL Baso # (Auto) (0.0-0.2) X10*3/uL Abs Immat Gran (auto) (0.00-0.03) X10*3/uL Absolute Neuts (auto) (2.0-8.3) X10*3/uL Absolute Nucleated RBC (0.0-0.012) X10*3/uL Nucleated RBC % (auto) (0.0-0.2) /100WBC Smear Tech's Comments PT (10.8-13.0) SEC INR (0.9-1.1) APTT (24.1-38.0) SEC Sodium (135-145) mmol/L Potassium (3.3-5.1) mmol/L Chloride (96-108) mmol/L Carbon Dioxide (22-29) mmol/L Anion Gap (12-20) BUN (9-16) mg/dL Creatinine (0.5-1.4) mg/dL Estim Creat Clear Calc Estimated GFR Random Glucose (60-115) mg/dL Calcium (8.4-10.2) mg/dL Magnesium (1.6-2.6) mg/dL Total Bilirubin (0.0-1.0) mg/dL Direct Bilirubin (0.0-0.5) mg/dL AST (5-31) U/L ALT (0-31) U/L Alkaline Phosphatase (39-117) U/L B-Natriuretic Peptide (<100) pg/mL Total Protein (6.5-8.0) g/dL Albumin (3.5-5.0) g/dL Lipase (8-78) U/L Urine Color YELLOW Urine Appearance HAZY Urine pH 6.0 (5.0-8.0) Ur Specific Orestes 1.025 (1.005-1.025) Urine Protein 1+ H (NEG-TRACE) MG/DL Urine Glucose (UA) NEG (NEG) MG/DL Urine Ketones NEG (NEG) MG/DL Urine Blood 1+ H (NEG) Urine Nitrite NEG (NEG) Ur Leukocyte Esterase NEG (NEG) Urine RBC 5-9 H (0) /HPF Urine WBC 1-4 (0-4) /HPF Ur Squamous Epith Cells 2+ /LPF Calcium Oxalate Crystal 2+ /LPF Urine Bacteria TRACE /LPF Discharge Plan Discharge Clinical Impression: Acute pancreatitis Qualifiers: Pancreatitis type: idiopathic Acute pancreatitis complication: unspecified Qualified Code(s): K85.00 - Idiopathic acute pancreatitis without necrosis or infection Patient Disposition: Left Against Medical Advice Instructions: Pancreatitis (ED) Additional Instructions: Drink plenty of fluids and continue to take pain medication. Report to the ER if pain gets worse/vomiting Prescriptions: No Action ondansetron HCl [Zofran] 4 mg tablet 4 mg PO Q6H PRN (Reason: nausea and vomiting) Qty: 14 RF: 0 Colace 50 mg Capsule 50 mg PO BID RF: 0 Fleet Enema 19-7 gram/118 mL Enema 118 ml UT BEDTIME MDD constipation PRN (Reason: Blood Pressure) RF: 0 polyethylene glycol 3350 [Miralax] 17 gram/dose Powder 17 g PO DAILY RF: 0 losartan 100 mg tablet 100 mg PO DAILY RF: 0 aspirin 81 mg tablet,chewable 1 tab PO DAILY RF: 0 allopurinol 300 mg tablet 300 mg PO DAILY RF: 0 docusate sodium 100 mg capsule 100 mg PO BID RF: 0 nystatin 100,000 unit/gram cream topical BID RF: 0 insulin aspart U-100 100 unit/mL (3 mL) insulin pen 2 - 12 unit subcut TID RF: 0 omeprazole 20 mg capsule,delayed release(DR/EC) 20 mg PO QAM RF: 0 insulin detemir U-100 100 unit/mL (3 mL) insulin pen 32 unit subcut BEDTIME RF: 0 amlodipine 5 mg tablet 5 mg PO DAILY RF: 0
[2020-10-08] MEDS: 0.9 % Sodium Chloride 1,000 ML 999 ML IVCONT ×2 (16:57→18:45)
[2020-10-08 17:06] LABS: Basophils Percent Auto 0.6 % (0-2); Eosinophils Percent Auto 0.6 % (0-4); Hematocrit 32.7 % (37-47); Hemoglobin 10.5 g/dl (12.0-16.0); Imm Gran Abs Auto 0.01 X10*3/uL (0.00-0.03); Imm Gran Pct Auto 0.6 % (0.0-0.4); Lymphocytes Absolute Auto 0.6 X10*3/uL (1.2-4.9); Lymphocytes Percent Auto 37.7 % (20-40); MANUAL DIFF FLAG SCAN; Mean Corpuscular HGB Conc 32.1 g/dl (31.0-35.0); Mean Corpuscular Hemoglobin 31.3 pg (27.0-33.0); Mean Corpuscular Volume 97.3 fL (80-98); Monocytes Absolute Auto 0.1 X10*3/uL (0.1-1.2); Monocytes Percent Auto 5.6 % (2-11); Neutrophils Absolute Auto 0.9 X10*3/uL (2.0-8.3); Neutrophils Percent Auto 54.9 % (45-73); Red Blood Count 3.36 X10*6/uL (4.20-5.50); Red Cell Distribution Width 15.5 % (11.0-16.0); SCAN SMEAR FLAG 1
[2020-10-08 17:07] LABS: Platelet Count 76 X10*3/uL (160-400); White Blood Count 1.6 X10*3/uL (4.8-10.8)
[2020-10-08 17:13] LABS: INTERNATIONAL NORM RATIO 1.2 (0.9-1.1); Prothrombin Time 14.5 SEC (10.8-13.0)
[2020-10-08 17:16] LABS: Partial Thromboplastin Time 25.2 SEC (24.1-38.0)
[2020-10-08 17:26] LABS: Alanine Aminotransferase 15 U/L (0-31); Alkaline Phosphatase 56 U/L (39-117); Aspartate Amino Transferase 24 U/L (5-31); Bilirubin Direct 0.6 mg/dL (0.0-0.5); Total Protein 7.6 g/dL (6.5-8.0)
[2020-10-08 17:27] LABS: Calcium 11.5 mg/dL (8.4-10.2)
[2020-10-08 17:29] LABS: Magnesium 1.6 mg/dL (1.6-2.6)
[2020-10-08 17:33] LABS: B Type Natriuretic Peptide 55 pg/mL (<100)
[2020-10-08 17:35] LABS: SLIDE REVIEW VERIFIED
[2020-10-08 17:47] LABS: Lipase 113 U/L (8-78)
[2020-10-08 17:57] VITALS: BP 118/68; PULSE 94; RESP 16; O2SAT 97
[2020-10-08 18:49] LABS: Anion Gap 9 (12-20); Blood Urea Nitrogen 11 mg/dL (9-16); Calcium 11.4 mg/dL (8.4-10.2); Carbon Dioxide 24 mmol/L (22-29); Chloride 110 mmol/L (96-108); Creatinine Clr Calc Pharmacy 46.6; Estimated Glomerular Filt Rate 41; Glucose Random 89 mg/dL (60-115); Potassium 3.5 mmol/L (3.3-5.1); Sodium 139 mmol/L (135-145)
[2020-10-08 19:00] LABS: Glucose Urine UA NEG (NEG); Leukocyte Esterase Urine NEG (NEG); Nitrite Urine NEG (NEG); Specific Gravity - Urine 1.025 (1.005-1.025); Urine Blood 1+ (NEG); Urine Ketones NEG (NEG); Urine Protein 1+ MG/DL (NEG-TRACE)
[2020-10-08 19:01] LABS: Appearance Urine HAZY; Color Urine YELLOW
[2020-10-08 19:14] LABS: Bacteria Urine TRACE /LPF; Squamous Epithelial Cell Urine 2+ /LPF
[2020-10-08 19:15] LABS: Calcium Oxalate Crystals Urine 2+ /LPF
[2020-10-08] MEDS: ondansetron HCL 4 MG/2 ML VIAL IVPUSH (20:21)
[2020-10-08 20:26] VITALS: BP 126/65; PULSE 98; RESP 16; TEMP 36.7; O2SAT 96
[2020-10-08] MEDS: Famotidine/PF 20 MG/2 ML VIAL IVPUSH (20:30)
== END 2020-10-08 22:00 | disposition left against medical advice (07) ==
LOC: HO.ED 15:55
PROVIDERS: Emergency Provider Internal Medicine; PCP Internal Medicine; Visit Provider Internal Medicine
DX: K85.00 Idiopathic acute pancreatitis without necrosis or infection (principal); R53.1 Weakness; R63.4 Abnormal weight loss; E11.9 Type 2 diabetes mellitus without complications; I10 Essential (primary) hypertension; Z79.82 Long term (current) use of aspirin; Z79.4 Long term (current) use of insulin; Z79.899 Other long term (current) drug therapy
CPT/HCPCS: 36415; 74177; 80048; 80076; 81001; 81003; 82310; 83690; 83735; 83880; 85025; 85610; 85730; 93970; 96361; 96374; 96375; 99284; J2405; Q9967

== ENCOUNTER 2020-10-09 08:30 | Inpatient (IN) | payer OTHER, MEDICARE, SELFPAY ==
[2020-10-09] VITALS (11 sets, daily range): BP systolic 116–135; BP diastolic 64–75; PULSE 81–103; RESP 14–18; TEMP 36.2–37.2; O2SAT 95–99; BMI 36.8
--- NOTE | ~2020-10-09 | CT_ITS ---
PROCEDURE: CT-GUIDED BONE MARROW BIOPSY CLINICAL INFORMATION: Multiple myeloma. COMPARISON: None TECHNIQUE: Following explaining CT fluoroscopy-guided iliac crest bone marrow biopsy procedure, benefits and risk, a written consent was obtained. Patient was placed prone on CT fluoroscopy table and preliminary CT imaging was obtained through the pelvis. An optimal site was selected of midline following placement of markers. The area marked was then cleaned and draped in usual sterile manner. 1% lidocaine was injected at the puncture site. Through a small skin incision, a 16-gauge guide needle was advanced from the skin to the level of the posterior iliac spine and then drilled with an mechanical driller into the bone marrow - 3 pass bone marrow aspiration was performed. The blood collected was transferred to heparin-coated and EDTA coated tubes. Subsequently, a core biopsy was obtained with the drill. A big piece core biopsy was obtained and delivered to the lab in formalin. Post procedure, the needle was withdrawn and complete hemostasis achieved at the puncture site. Patient tolerated the procedure extremely well. IV conscious sedation was administered and patient monitored for [address] examination was performed using dose optimization techniques as appropriate, variously including the following: *Automated exposure control. *Adjustment of mA and/or kV according to patient size (this includes techniques or standardized protocols for targeted exams where dose is matched to indication/reason for exam; i.e. extremities or head). *Use of iterative reconstruction technique. DLP: 402 mGy-cm FINDINGS: There is symmetric bone marrow visualized along the posterior iliac spine and the iliac crest. Multiple fine-needle aspiration and single core biopsy was performed through the right posterior iliac crest. CT/CT biopsy aspirate bone marrow IMPRESSION: Successful CT fluoroscopy-guided bone marrow aspiration and core biopsy was performed and sent to pathology for further evaluation.
--- NOTE | 2020-10-09 08:41 | ED.ABDPAIN ---
HPI - Abdominal Pain General Chief Complaint: Nausea/Vomiting/Diarrhea Stated Complaint: VOMITING Time Seen by Provider: 10/09/20 08:40 Source: patient and family Mode of arrival: wheelchair History of Present Illness HPI narrative: Pleasant 75-year-old female with past medical history as noted below including history of ? multiple myeloma being fallowed by Oncology workup in progress, diabetes, hypertension, hypercalcemia, hyperlipidemia, RADHA, hypothyroidism as well as prior episode of interstitial pancreatitis after loyda COVID she is being followed by Oncology here and was seen yesterday in emergency room for epigastric abdominal pain and nausea vomiting found to have slightly elevated lipase and CT evidence of acute pancreatitis recommended to stay in hospital however she wanted to try going home and however pain has continued and as well as nausea and vomiting. MD elicited complaint: abdominal pain Onset (ago): day(s) Pain Consistency: constant Location: epigastric Severity: moderate Quality: aching Radiation: none Migration to: no migration Exacerbating factors: nothing Relieving factors: nothing Associated symptoms: nausea and vomiting Related Data Home Medications Medication Instructions Recorded Confirmed allopurinol 300 mg tablet 300 mg PO DAILY 04/22/20 10/09/20 aspirin 81 mg chewable tablet 81 mg PO DAILY 04/22/20 10/09/20 docusate sodium 100 mg capsule 100 mg PO BID 04/22/20 10/09/20 insulin aspart U-100 100 unit/mL 2 - 12 unit SUBCUT TID 04/22/20 10/09/20 (3 mL) subcutaneous pen omeprazole 20 mg capsule,delayed 20 mg PO DAILY 04/22/20 10/09/20 release amlodipine 5 mg tablet 5 mg PO DAILY 09/30/20 10/09/20 insulin detemir U-100 100 unit/mL 20 unit SUBCUT BEDTIME ml 09/30/20 10/09/20 (3 mL) subcutaneous pen polyethylene glycol 3350 [Miralax] 17 g PO DAILY 10/06/20 10/09/20 bisacodyl 1 supp IL DAILY PRN 10/09/20 10/09/20 sennosides [senna] 8.6 mg PO BEDTIME 10/09/20 10/09/20 Allergies Allergy/AdvReac Type Severity Reaction Status Date / Time codeine [CODEINE] Allergy Intermediate NAUSEA & Verified 07/26/20 06:57 VOMITING, vomiting lisinopril [LISINOPRIL] Allergy Intermediate COUGH, Verified 07/26/20 06:57 Coughing sulfamethoxazole Allergy Intermediate RASH Verified 07/26/20 06:57 [From BACTRIM] Review of Systems Review of Systems Constitutional: No Weight loss, No Fever, No Chills, No Night Sweats, No Fatigue, No Malaise ENT/Mouth: No Hearing loss, No Ear Pain, No Nasal Congestion, No Sinus Pain, No Hoarseness, No sore throat, No Rhinorrhea, No Swallowing Difficulty Eyes: No Eye Pain, No Swelling, No Redness, No Foreign Body, No Discharge, No Vision Changes Cardiovascular: No Chest Pain, No SOB, No Dyspnea on Exertion, No Orthopnea, No Edema, No Palpitations Respiratory: No Cough, No Sputum, No Wheezing, No Dyspnea Gastrointestinal: As noted per HPI, No Hematochezia, No Melena Genitourinary: no irregular bleeding, No Dysuria, No Urinary Frequency, No Hematuria, No Urinary Incontinence, No Urgency, No Flank Pain, No Urinary Flow Changes, No Hesitancy Musculoskeletal: No joint pain, No Myalgias, No Joint Swelling Skin: No Skin Lesions, No rash Neuro: No Weakness, No Numbness, No Paresthesias, No Loss of Consciousness, No Dizziness, No Headache Psych: No Social Issues Heme/Lymph: No Bruising, No Bleeding,No Lymphadenopathy Endocrine: No Polyuria, No Polydipsia, No Temperature Intolerance Yes all other systems are reviewed and are negative Physical Exam Vital Signs: Vital Signs: Last Vital Signs Temp 98.2 F 10/09/20 12:33 Pulse 98 10/09/20 12:33 Resp 15 10/09/20 12:33 BP 121/67 10/09/20 12:33 Pulse Ox 96 10/09/20 12:33 Body Mass Index 36.8 Reviewed Const: General: cooperative; No acute distress or intoxicated appearing Nutritional Appearance: overweight Orientation/consciousness: patient oriented x3 HENMT: Head: Yes normal to inspection Ears: hearing grossly normal bilaterally Eyes: General: appearance normal, both eyes and all related structures Visual Rojas: normal visual rojas by confrontation Neck: Neck: Yes normal visual inspection, No positive Brudzinski's sign, No positive Kernig's sign and No tender Thyroid: Thyroid normal Chest: Chest palpation & inspection: normal inspection of the chest Resp: Effort & Inspection: normal respiratory effort Auscultation: clear to auscultation bilaterally Cardio: Jugular venous distension: no JVD Rhythm: regular rhythm Heart sounds: S1 normal heart sound present and S2 normal heart sound present GI: Inspection: Yes normal to inspection Palpation (GI): Soft to palpation, no guarding, not rigid and hepatosplenomegaly present Percussion: Yes normal to percussion Auscultation: normal bowel sounds : General: Yes no CVA tenderness Back/Spine/Pelvis: Back: no CVA tenderness Skin: General skin exam: no rashes or lesions noted Neuro: General: patient oriented x3 Extrem: General: Yes normal to inspection MDM - Abdominal Pain MDM Narrative Medical decision making narrative: History of idiopathic pancreatitis had labs and CT done last night left against medical advice plan was for admission will repeat labs symptomatic management with IV fluids, antiemetics and analgesia. Will remain NPO. Differential Diagnosis Differential diagnosis: Likely abdominal pain, gastritis and pancreatitis; Unlikely aortic dissection, acute appendicitis, bowel perforation, calculus of kidney, constipation, diverticulitis, gastroenteritis, peptic ulcer disease, renal colic and small bowel obstruction Medical Records Attestation: I reviewed the patient's medical records. Medical records narrative: ED visit from last evening October 08 reviewed including labs, CT scan of the abdomen pelvis with IV contrast and physician note. Lab Data Attestation: I reviewed the patient's lab results. Result diagrams: 10/09/20 10:03 10/09/20 10:03 Labs: Lab Results 10/09/20 10/09/20 10/09/20 Range/Units 08:55 10:03 10:03 WBC 1.6 L (4.8-10.8) X10*3/uL RBC 3.01 L (4.20-5.50) X10*6/uL Hgb 9.2 L (12.0-16.0) g/dl Hct 29.7 L (37-47) % MCV 98.7 H (80-98) fL MCH 30.6 (27.0-33.0) pg MCHC 31.0 (31.0-35.0) g/dl RDW 15.7 (11.0-16.0) % Plt Count 74 L (160-400) X10*3/uL MPV 10.2 (9.4-12.3) fL Immature Gran % (Auto) 0.6 H (0.0-0.4) % Neut % (Auto) 65.2 (45-73) % Lymph % (Auto) 27.1 (20-40) % [place] % (Auto) 5.8 (2-11) % Eos % (Auto) 0.0 (0-4) % Baso % (Auto) 1.3 (0-2) % Lymph # (Auto) 0.4 L (1.2-4.9) X10*3/uL [place] # (Auto) 0.1 (0.1-1.2) X10*3/uL Eos # (Auto) 0.0 (0.0-0.4) X10*3/uL Baso # (Auto) 0.0 (0.0-0.2) X10*3/uL Abs Immat Gran (auto) 0.01 (0.00-0.03) X10*3/uL Absolute Neuts (auto) 1.0 L (2.0-8.3) X10*3/uL Absolute Nucleated RBC 0.000 (0.0-0.012) X10*3/uL Nucleated RBC % (auto) 0.0 (0.0-0.2) /100WBC Smear Tech's Comments VERIFIED PT 15.1 H (10.8-13.0) SEC INR 1.3 H (0.9-1.1) APTT 26.8 (24.1-38.0) SEC Sodium (135-145) mmol/L Potassium (3.3-5.1) mmol/L Chloride (96-108) mmol/L Carbon Dioxide (22-29) mmol/L Anion Gap (12-20) BUN (9-16) mg/dL Creatinine (0.5-1.4) mg/dL Estim Creat Clear Calc Estimated GFR POC Glucose 69 (60-115) mg/dL Random Glucose (60-115) mg/dL Calcium (8.4-10.2) mg/dL Total Bilirubin (0.0-1.0) mg/dL AST (5-31) U/L ALT (0-31) U/L Alkaline Phosphatase (39-117) U/L Total Protein (6.5-8.0) g/dL Albumin (3.5-5.0) g/dL Lipase (8-78) U/L COVID-19 (RYAN) (Negative) COVID-19 Clin Com 10/09/20 10/09/20 10/09/20 Range/Units 10:03 10:03 11:09 WBC (4.8-10.8) X10*3/uL RBC (4.20-5.50) X10*6/uL Hgb (12.0-16.0) g/dl Hct (37-47) % MCV (80-98) fL MCH (27.0-33.0) pg MCHC (31.0-35.0) g/dl RDW (11.0-16.0) % Plt Count (160-400) X10*3/uL MPV (9.4-12.3) fL Immature Gran % (Auto) (0.0-0.4) % Neut % (Auto) (45-73) % Lymph % (Auto) (20-40) % [place] % (Auto) (2-11) % Eos % (Auto) (0-4) % Baso % (Auto) (0-2) % Lymph # (Auto) (1.2-4.9) X10*3/uL [place] # (Auto) (0.1-1.2) X10*3/uL Eos # (Auto) (0.0-0.4) X10*3/uL Baso # (Auto) (0.0-0.2) X10*3/uL Abs Immat Gran (auto) (0.00-0.03) X10*3/uL Absolute Neuts (auto) (2.0-8.3) X10*3/uL Absolute Nucleated RBC (0.0-0.012) X10*3/uL Nucleated RBC % (auto) (0.0-0.2) /100WBC Smear Tech's Comments PT (10.8-13.0) SEC INR (0.9-1.1) APTT (24.1-38.0) SEC Sodium 140 (135-145) mmol/L Potassium 3.6 (3.3-5.1) mmol/L Chloride 112 H (96-108) mmol/L Carbon Dioxide 25 (22-29) mmol/L Anion Gap 7 L (12-20) BUN 10 (9-16) mg/dL Creatinine 1.27 (0.5-1.4) mg/dL Estim Creat Clear Calc 45.6 Estimated GFR 41 POC Glucose 80 (60-115) mg/dL Random Glucose 136 H D (60-115) mg/dL Calcium 11.0 H (8.4-10.2) mg/dL Total Bilirubin 0.8 (0.0-1.0) mg/dL AST 20 (5-31) U/L ALT 13 (0-31) U/L Alkaline Phosphatase 50 (39-117) U/L Total Protein 6.6 (6.5-8.0) g/dL Albumin 1.7 L (3.5-5.0) g/dL Lipase 86 H (8-78) U/L COVID-19 (RYAN) Negative (Negative) COVID-19 Clin Com See Note ECG Data Interpretation: Sinus tachycardia Rate 100 Nonspecific T-wave flattening in the anterior leads No acute ST segment changes Discharge Plan Discharge Clinical Impression: Acute pancreatitis, Nausea & vomiting Patient Disposition: Admitted As Inpatient Prescriptions: No Action polyethylene glycol 3350 [Miralax] 17 gram/dose Powder 17 g PO DAILY RF: 0 bisacodyl 10 mg suppository 1 supp IL DAILY PRN (Reason: constipation) RF: 0 sennosides [senna] 8.6 mg Tablet 8.6 mg PO BEDTIME RF: 0 aspirin 81 mg tablet,chewable 81 mg PO DAILY RF: 0 allopurinol 300 mg tablet 300 mg PO DAILY RF: 0 docusate sodium 100 mg capsule 100 mg PO BID RF: 0 insulin aspart U-100 100 unit/mL (3 mL) insulin pen 2 - 12 unit subcut TID RF: 0 omeprazole 20 mg capsule,delayed release(DR/EC) 20 mg PO DAILY RF: 0 insulin detemir U-100 100 unit/mL (3 mL) insulin pen 20 unit subcut BEDTIME RF: 0 amlodipine 5 mg tablet 5 mg PO DAILY RF: 0 PMFSH Past Medical History Medical History Diabetes mellitus type 2, controlled, without complications Essential hypertension Hypercalcemia Hyperlipidemia, unspecified Hypoglycemia unawareness associated with type 2 diabetes mellitus Obstructive sleep apnea Pancytopenia Subclinical hyperthyroidism Surgical History History of knee replacement History of left hip replacement Family History Family History Father No problems noted. Mother Heart disease Brother Atrial fibrillation Brother Atrial fibrillation Brother Atrial fibrillation Social History Social History Alcohol intake: never Smoking Status: Never smoker Advance Directives Date on File: 10/09/20
--- NOTE | 2020-10-09 08:44 | ECG_ITS ---
Test Reason : WEAKNESS Blood Pressure : / mmHG Vent. Rate : 100 BPM Atrial Rate : 100 BPM P-R Int : 176 ms QRS Dur : 078 ms QT Int : 308 ms P-R-T Axes : 010 -20 -23 degrees QTc Int : 397 ms Normal sinus rhythm Nonspecific T wave abnormality Abnormal ECG When compared with ECG of 26-JUL-2020 07:41, Nonspecific T wave abnormality now evident in Anterolateral leads Referred By: Osorio Salgado Electronically Signed By:FABRICE LEACH
[2020-10-09 08:59] LABS: Glucose, Whole Blood 69 mg/dL (60-115)
[2020-10-09] MEDS: Morphine Sulfate 2 MG/ML CARTRIDGE IVPUSH ×3 (09:32→23:04)
[2020-10-09] MEDS: 0.9 % Sodium Chloride 500 ML IV (09:32)
[2020-10-09] MEDS: ondansetron HCL 4 MG/2 ML VIAL IVPUSH ×3 (09:32→23:04)
[2020-10-09 10:15] LABS: Basophils Percent Auto 1.3 % (0-2); Hematocrit 29.7 % (37-47); Hemoglobin 9.2 g/dl (12.0-16.0); Imm Gran Abs Auto 0.01 X10*3/uL (0.00-0.03); Imm Gran Pct Auto 0.6 % (0.0-0.4); Lymphocytes Absolute Auto 0.4 X10*3/uL (1.2-4.9); Lymphocytes Percent Auto 27.1 % (20-40); MANUAL DIFF FLAG SCAN; Mean Corpuscular Hemoglobin 30.6 pg (27.0-33.0); Mean Corpuscular Volume 98.7 fL (80-98); Mean Platelet Volume 10.2 fL (9.4-12.3); Monocytes Absolute Auto 0.1 X10*3/uL (0.1-1.2); Monocytes Percent Auto 5.8 % (2-11); Neutrophils Percent Auto 65.2 % (45-73); Red Blood Count 3.01 X10*6/uL (4.20-5.50); Red Cell Distribution Width 15.7 % (11.0-16.0); SCAN SMEAR FLAG 1
[2020-10-09 10:19] LABS: White Blood Count 1.6 X10*3/uL (4.8-10.8)
[2020-10-09 10:20] LABS: INTERNATIONAL NORM RATIO 1.3 (0.9-1.1); Platelet Count 74 X10*3/uL (160-400); Prothrombin Time 15.1 SEC (10.8-13.0)
[2020-10-09 10:23] LABS: Partial Thromboplastin Time 26.8 SEC (24.1-38.0)
[2020-10-09 10:32] LABS: COVID-19 Test Negative (Negative); IDNOW Serial# 9DD0AD1C
[2020-10-09 10:39] LABS: SLIDE REVIEW VERIFIED
[2020-10-09 10:57] LABS: Alanine Aminotransferase 13 U/L (0-31); Albumin Level 1.7 g/dL (3.5-5.0); Alkaline Phosphatase 50 U/L (39-117); Anion Gap 7 (12-20); Aspartate Amino Transferase 20 U/L (5-31); Bilirubin Total 0.8 mg/dL (0.0-1.0); Blood Urea Nitrogen 10 mg/dL (9-16); Carbon Dioxide 25 mmol/L (22-29); Chloride 112 mmol/L (96-108); Creatinine Clr Calc Pharmacy 45.6; Estimated Glomerular Filt Rate 41; Glucose Random 136 mg/dL (60-115); Lipase 86 U/L (8-78); Potassium 3.6 mmol/L (3.3-5.1); Sodium 140 mmol/L (135-145); Total Protein 6.6 g/dL (6.5-8.0)
[2020-10-09 11:15] LABS: Glucose, Whole Blood 80 mg/dL (60-115)
--- NOTE | 2020-10-09 12:08 | PC.NURSE ---
pt is alert and oriented x3. eye contact and verbal response appropriate for setting. pt speaks in full sentences and able to make needs know. lung sounds clear bilaterally, respiratory rate is even and effort is unlabored. pt denies feeling short of breath. heart rate and sounds normal. bowel sounds hypoactive x4. pt is currently NPO. pt has limited mobility due to right knee slight swelling and weakness. pt states she is due for a right knee replacement. pt requires 1 to 2 assist when transferring. pt currently resting comfortably in bed. no distress noted. pt aware of plan of care for admission to hospital. no questions or concerns at this time. call contreras in reach
--- NOTE | 2020-10-09 13:15 | PC.NURSE ---
pt seen by hosp, pt aware of plan of care for admission to hosp.
--- NOTE | 2020-10-09 13:28 | PM.IMHP ---
History of Present Illness Date of Service: 10/09/20 Chief Complaint: N\V, Abdominal pain A 75 years old lady with PMH of diabetes, multiple myeloma who presents to the hospital complaining of abdominal pain, nausea and vomiting for the last week. The patient was discharged from [facility] a earlier this year for COVID-19 infection for 22 days complicated by acute pancreatitis. Further studies were negative for which immune, stone at that point. Today presenting to the hospital with worsening nausea and vomiting for almost 1 week. She reports that she did not feel normal since the COVID-19 infection as she ended up having G-tube for a while which was later removed. She lost some weight over the last few months by almost 40 lb. She feels tired and lethargic. CT scan done in the emergency showing possible acute pancreatitis with mildly elevated pancreatic enzymes. Admitted for further evaluation and treatment. Review of Systems Review of Systems: No fever, chills but general lethargy and weakness No chest pain, palpitation No shortness of breath or coughing Complaining of epigastric pain associated with nausea and vomiting No urinary symptoms No any rash or wounds PMFSH Medical History Diabetes mellitus type 2, controlled, without complications Essential hypertension Hypercalcemia Hyperlipidemia, unspecified Hypoglycemia unawareness associated with type 2 diabetes mellitus Obstructive sleep apnea Pancytopenia Subclinical hyperthyroidism Family History Father No problems noted. Mother Heart disease Brother Atrial fibrillation Brother Atrial fibrillation Brother Atrial fibrillation Surgical History History of knee replacement History of left hip replacement Social History Alcohol intake: never Smoking Status: Never smoker Use of substances other than those prescribed or required for medical reasons: No Advance Directives: Yes Advance Directives on File: Yes Advance Directives Date on File: 10/09/20 Meds Allergies Allergy/AdvReac Type Severity Reaction Status Date / Time codeine [CODEINE] Allergy Intermediate NAUSEA & Verified 07/26/20 06:57 VOMITING, vomiting lisinopril [LISINOPRIL] Allergy Intermediate COUGH, Verified 07/26/20 06:57 Coughing sulfamethoxazole Allergy Intermediate RASH Verified 07/26/20 06:57 [From BACTRIM] Active Medications: Current Medications Generic Name Dose Route Start Last Admin Trade Name Marjorie PRN Reason Stop Dose Admin Morphine Sulfate 2 mg 10/09/20 13:27 Morphine Sulfate 2 Mg/Ml Cartridge IVPUSH Q4H PRN Pain, Severe (Pain Scale 7-10) Home Medications Medication Instructions Recorded Confirmed Last Taken Type allopurinol 300 mg tablet 300 mg PO DAILY 04/22/20 10/09/20 10/07/20 History aspirin 81 mg chewable tablet 81 mg PO DAILY 04/22/20 10/09/20 10/07/20 History docusate sodium 100 mg capsule 100 mg PO BID 04/22/20 10/09/20 10/07/20 History insulin aspart U-100 100 unit/mL 2 - 12 unit SUBCUT TID 04/22/20 10/09/20 Unknown History (3 mL) subcutaneous pen omeprazole 20 mg capsule,delayed 20 mg PO DAILY 04/22/20 10/09/20 10/07/20 History release amlodipine 5 mg tablet 5 mg PO DAILY 09/30/20 10/09/20 10/07/20 History insulin detemir U-100 100 unit/mL 20 unit SUBCUT BEDTIME ml 09/30/20 10/09/20 10/07/20 History (3 mL) subcutaneous pen polyethylene glycol 3350 [Miralax] 17 g PO DAILY 10/06/20 10/09/20 10/07/20 History bisacodyl 1 supp NM DAILY PRN 10/09/20 10/09/20 Unknown History sennosides [senna] 8.6 mg PO BEDTIME 10/09/20 10/09/20 10/07/20 History Physical Exam Vital Signs and Narrative: Vital Signs: Last Vital Signs Temp 98.2 F 10/09/20 12:33 Pulse 98 10/09/20 12:33 Resp 15 10/09/20 12:33 BP 121/67 10/09/20 12:33 Pulse Ox 96 10/09/20 12:33 Body Mass Index 36.8 Const: Other: Constitutional : Alert, oriented, not in distress Neck : Normal inspection, Supple Cardiovascular : RRR, S1 S2, no lower extremity edema or erythema Respiratory : Good bilateral air entry, no crackles, wheezes or rhonchi Gastrointestinal: soft, lax, Normal bowel sounds, epigastric tenderness, no surgical signs Skin : Warm/Dry, No rash Neurological : Alert & oriented x3, No focal deficit Results Labs CBC and Chem 7: 10/09/20 10:03 10/09/20 10:03 Labs: Laboratory Results - last 24 hr 10/09/20 10/09/20 10/09/20 08:55 10:03 10:03 MCV 98.7 H MCH 30.6 MCHC 31.0 RDW 15.7 Plt Count 74 L MPV 10.2 Immature Gran % (Auto) 0.6 H Neut % (Auto) 65.2 Lymph % (Auto) 27.1 [place] % (Auto) 5.8 Eos % (Auto) 0.0 Baso % (Auto) 1.3 Lymph # (Auto) 0.4 L [place] # (Auto) 0.1 Eos # (Auto) 0.0 Baso # (Auto) 0.0 Abs Immat Gran (auto) 0.01 Absolute Neuts (auto) 1.0 L Absolute Nucleated RBC 0.000 Nucleated RBC % (auto) 0.0 Smear Tech's Comments VERIFIED PT 15.1 H INR 1.3 H APTT 26.8 Anion Gap Estim Creat Clear Calc Estimated GFR POC Glucose 69 Random Glucose Calcium Total Bilirubin AST ALT Alkaline Phosphatase Total Protein Albumin Lipase COVID-19 (RYAN) COVID-19 Clin Com 10/09/20 10/09/20 10/09/20 10:03 10:03 11:09 MCV MCH MCHC RDW Plt Count MPV Immature Gran % (Auto) Neut % (Auto) Lymph % (Auto) [place] % (Auto) Eos % (Auto) Baso % (Auto) Lymph # (Auto) [place] # (Auto) Eos # (Auto) Baso # (Auto) Abs Immat Gran (auto) Absolute Neuts (auto) Absolute Nucleated RBC Nucleated RBC % (auto) Smear Tech's Comments PT INR APTT Anion Gap 7 L Estim Creat Clear Calc 45.6 Estimated GFR 41 POC Glucose 80 Random Glucose 136 H D Calcium 11.0 H Total Bilirubin 0.8 AST 20 ALT 13 Alkaline Phosphatase 50 Total Protein 6.6 Albumin 1.7 L Lipase 86 H COVID-19 (RYAN) Negative COVID-19 Clin Com See Note Assessment and Plan (1) Acute pancreatitis: Qualifiers: Acute pancreatitis complication: no infection or necrosis Pancreatitis type: idiopathic Qualified Code(s): K85.00 - Idiopathic acute pancreatitis without necrosis or infection Status: Acute (2) Nausea & vomiting: Status: Acute (3) Pancytopenia: Status: Acute (4) Hypercalcemia: Status: Acute (5) Diabetes mellitus type 2, controlled, without complications: Status: Acute A 75 years old lady with PMH of diabetes, multiple myeloma who presents to the hospital complaining of abdominal pain, nausea and vomiting for the last week. Acute pancreatitis Intractable nausea and vomiting CT scan suggestive acute pancreatitis Could be related to hypercalcemia as gallbladder removed, nonalcoholic, of 2 improved up previously to check triglyceride Start IV fluids Morphine for pain To get GI evaluation for recurrent pancreatitis Hypercalcemia Secondary to multiple myeloma Corrected calcium of 12.7 Start IV fluid with goal to bring it down Discuss with Hematology for possible need bisphosphonate Pancytopenia Secondary to Multiple myeloma Continue to monitor, no active infection noted Mild protein malnutrition Low albumin 0.7 To add supplement to diet Diabetes type 2 Use Lantus 10 units SSI DVT PPX Lovenox
[2020-10-09 13:38] LABS: Triglycerides 62 mg/dL
[2020-10-09] MEDS: 0.9 % Sodium Chloride 1,000 ML 100 ML IVCONT (15:27)
[2020-10-09] MEDS: 0.9 % Sodium Chloride Flush 3 ML SYRINGE IVFLUSH (15:33)
--- NOTE | 2020-10-09 15:40 | PC.NURSE ---
Pt c/o middle- rlq abd pain and r knee pain, naused and dry heaving, medicated per emar w/ positive effect. Pt is aox4, skin w/p/d, rr even and unlabored, vss. Agreeable and aware of plan for admission. Pending room assignment.
[2020-10-09 16:09] LABS: Glucose, Whole Blood 73 mg/dL (60-115)
--- NOTE | 2020-10-09 16:26 | PC.NURSE ---
x1 attempt to give report- awaiting callback
--- NOTE | 2020-10-09 16:53 | PC.NURSE ---
Box Inspector at bedside for cardiac u/s. Pt placed on 5l nasal cannula- breathing appears to be less distresses, maintain spo2 from 90-91.
[2020-10-09] MEDS: Enoxaparin Sodium 40 MG/0.4 ML SYRINGE SUBCUT (17:38)
[2020-10-09 20:32] LABS: Glucose, Whole Blood 58 mg/dL (60-115)
[2020-10-09 23:11] LABS: Glucose, Whole Blood 105 mg/dL (60-115)
[2020-10-10] MEDS: 0.9 % Sodium Chloride 1,000 ML 100 ML IVCONT ×3 (00:58→20:36)
[2020-10-10 04:00] VITALS: BP 121/64; PULSE 91; RESP 16; TEMP 36; O2SAT 99
[2020-10-10 07:20] VITALS: BP 123/58; PULSE 93; RESP 16; TEMP 36.4; O2SAT 97
[2020-10-10 07:39] LABS: Glucose, Whole Blood 80 mg/dL (60-115)
[2020-10-10] MEDS: Morphine Sulfate 2 MG/ML CARTRIDGE IVPUSH (08:14)
[2020-10-10] MEDS: ondansetron HCL 4 MG/2 ML VIAL IVPUSH (08:14)
[2020-10-10] MEDS: amLODIPine Besylate 5 MG TABLET PO (11:01)
[2020-10-10] MEDS: Aspirin 81 MG TAB.CHEW PO (11:02)
[2020-10-10] MEDS: allopurinoL 300 MG TABLET PO (11:02)
[2020-10-10] MEDS: Docusate Sodium 100 MG CAPSULE PO ×2 (11:02→20:38)
[2020-10-10] MEDS: Omeprazole 20 MG CAPSULE.DR PO (11:09)
--- NOTE | 2020-10-10 11:37 | P.PNIM_ITS ---
Subjective Subjective Date of Service: 10/10/20 Interval History: the patient was seen and evaluated this morning Laying in bed, feels comfortable overall, still mildly nauseated but much better than before with no reported vomiting overnight To start clear diet today Denies any fever, chills or shortness of breath No reported other overnight events. Systemic review: No fever, chills or weakness No chest pain, palpitation No shortness of breath or coughing Improved abdominal pain, still have nausea but 1 0 vomiting No urinary symptoms No any rash or wounds Physical Exam Vital Signs: Vital Signs: Last Vital Signs Temp 97.6 F 10/10/20 07:20 Pulse 93 10/10/20 07:20 Resp 16 10/10/20 07:20 BP 123/58 L 10/10/20 07:20 Pulse Ox 97 10/10/20 07:20 Body Mass Index 36.8 Const: Other: Constitutional : Alert, oriented, not in distress Neck : Normal inspection, Supple Cardiovascular : RRR, S1 S2, no lower extremity edema or erythema Respiratory : Good bilateral air entry, no crackles, wheezes or rhonchi Gastrointestinal: soft, lax, Normal bowel sounds, epigastric tenderness, no surgical signs Skin : Warm/Dry, No rash Neurological : Alert & oriented x3, No focal deficit Objective Data Current Medications Generic Name Dose Route Start Last Admin Trade Name Freq PRN Reason Stop Dose Admin Acetaminophen 650 mg 10/09/20 15:19 Acetaminophen 325 Mg Tablet PO Q6H PRN Pain, Mild (Pain Scale 1-3) Allopurinol 300 mg 10/10/20 09:00 10/10/20 11:02 Allopurinol 300 Mg Tablet PO 300 mg DAILY [facility] Administration Amlodipine Besylate 5 mg 10/10/20 09:00 10/10/20 11:01 Amlodipine Besylate 5 Mg Tablet PO 5 mg DAILY [facility] Administration Protocol Aspirin 81 mg 10/10/20 09:00 10/10/20 11:02 Aspirin 81 Mg Tab.Chew PO 81 mg DAILY [facility] Administration Bisacodyl 10 mg 10/09/20 15:19 Bisacodyl 10 Mg Supp.Rect MA DAILY PRN constipation Docusate Sodium 100 mg 10/09/20 21:00 10/10/20 11:02 Docusate Sodium 100 Mg Capsule PO 100 mg BID [facility]AN Administration Enoxaparin Sodium 40 mg 10/09/20 18:00 10/09/20 17:38 Enoxaparin Sodium 40 Mg/0.4 Ml Syringe SUBCUT 40 mg Q24H [facility] Administration Sodium Chloride 1,000 mls @ 100 mls/hr 10/09/20 15:19 10/10/20 11:02 Ns IVCONT 100 mls/hr .Q10H [facility] Administration Insulin Glargine 10 unit 10/09/20 21:00 10/09/20 20:17 Insulin Glargine,Hum.Rec.Anlog 100 Unit/Ml 10 Ml Vial SUBCUT Not Given BEDTIME [facility] Insulin Human Lispro 0 unit 10/09/20 16:30 10/10/20 08:16 Insulin Lispro 100 Unit/Ml 3 Ml Vial SUBCUT Not Given QIDACHS [facility] Protocol Morphine Sulfate 2 mg 10/09/20 13:27 10/10/20 08:14 Morphine Sulfate 2 Mg/Ml Cartridge IVPUSH 2 mg Q4H PRN Administration Pain, Severe (Pain Scale 7-10) Omeprazole 20 mg 10/10/20 06:30 10/10/20 11:09 Omeprazole 20 Mg Capsule.Dr PO 20 mg DAILY@0630 [facility] Administration Ondansetron HCl 4 mg 10/09/20 15:19 10/10/20 08:14 Ondansetron Hcl 4 Mg/2 Ml Vial IVPUSH 4 mg Q8H PRN Administration Nausea and Vomiting Senna 8.6 mg 10/09/20 21:00 10/09/20 20:17 Sennosides 8.6 Mg Tablet PO Not Given BEDTIME [facility] Sodium Chloride 3 ml 10/09/20 16:00 10/10/20 08:16 0.9 % Sodium Chloride Flush 3 Ml Syringe IVFLUSH Not Given QSHIFT [facility] Labs CBC & Chem 7: 10/09/20 10:03 10/09/20 10:03 Assessment and Plan (1) Acute pancreatitis: Status: Acute (2) Nausea & vomiting: Status: Acute (3) Pancytopenia: Status: Acute (4) Hypercalcemia: Status: Acute (5) Diabetes mellitus type 2, controlled, without complications: Status: Acute Assessment and Plan: A 75 years old lady with PMH of diabetes, multiple myeloma who presents to the hospital complaining of abdominal pain, nausea and vomiting for the last week. Acute pancreatitis Intractable nausea and vomiting CT scan suggestive acute pancreatitis Could be related to hypercalcemia as gallbladder removed, nonalcoholic, of 2 improved up previously Normal triglyceride Continue IV fluids Morphine for pain Pending GI evaluation for recurrent pancreatitis Moderate Hypercalcemia Secondary to multiple myeloma Corrected calcium of 12.7 at admission Continue IV fluid with goal to bring it down Discuss with Hematology for possible need bisphosphonate, still not severe Pancytopenia Secondary to Multiple myeloma Continue to monitor, no active infection noted Mild protein malnutrition Low albumin 1.7 To add supplement to diet Diabetes type 2 Use Lantus 10 units SSI DVT PPX Lovenox
[2020-10-10 11:42] VITALS: BP 107/74; PULSE 104; RESP 15; TEMP 36.1; O2SAT 98
[2020-10-10 11:45] VITALS: BP 123/58; PULSE 93; O2SAT 97
--- NOTE | 2020-10-10 11:46 | MHC.CM.PN ---
CM MET WITH PT WHO REPORTS SHE LIVES WITH HER DAUGHTER, SON=IN=[place]AND[place]. PT REPORTS SHE IS INDEPENDENT WITH CARE. SHE STATES SHE HAS A WALKER, GRAB BARS IN THE BATHROOM, A BEDSIDE COMMODE AND TUB BENCH AND A CPAP THAT SHE USES. SHE ALSO HAS A NEBULIZER THAT SHE HAS NOT NEEDED IN A LONG TIME. PT REPORTS HER FAMILY WILL BRING IN HER CPAP TODAY. PT CONFIRMS THE HCP ON FILE IS ACCURATE, IT NAMES HER DAUGHTER, MARIUSZ VENTURA ([phone]) HER AGENT. PCP IS CHARI SCHAFFER. IMM DELIVERED CURRENT DC PLAN IS HOME WITH NO SERVICES PTS DAUGHTER WILL PROVIDE TRANSPORTATION
[2020-10-10 11:59] LABS: Glucose, Whole Blood 111 mg/dL (60-115)
[2020-10-10 12:27] LABS: Basophils Percent Auto 0.7 % (0-2); Eosinophils Percent Auto 0.7 % (0-4); Hematocrit 31.5 % (37-47); Imm Gran Abs Auto 0.01 X10*3/uL (0.00-0.03); Imm Gran Pct Auto 0.7 % (0.0-0.4); Lymphocytes Absolute Auto 0.6 X10*3/uL (1.2-4.9); Lymphocytes Percent Auto 37.9 % (20-40); MANUAL DIFF FLAG SCAN; Mean Corpuscular HGB Conc 31.7 g/dl (31.0-35.0); Mean Corpuscular Hemoglobin 31.7 pg (27.0-33.0); Mean Platelet Volume 10.5 fL (9.4-12.3); Monocytes Absolute Auto 0.1 X10*3/uL (0.1-1.2); Monocytes Percent Auto 5.2 % (2-11); Neutrophils Absolute Auto 0.8 X10*3/uL (2.0-8.3); Neutrophils Percent Auto 54.8 % (45-73); Red Blood Count 3.15 X10*6/uL (4.20-5.50); Red Cell Distribution Width 15.9 % (11.0-16.0); SCAN SMEAR FLAG 1
[2020-10-10 12:31] LABS: Platelet Count 73 X10*3/uL (160-400); White Blood Count 1.5 X10*3/uL (4.8-10.8)
[2020-10-10 12:48] LABS: SLIDE REVIEW VERIFIED
[2020-10-10 12:57] LABS: Alanine Aminotransferase 13 U/L (0-31); Albumin Level 1.9 g/dL (3.5-5.0); Alkaline Phosphatase 50 U/L (39-117); Anion Gap 12 (12-20); Aspartate Amino Transferase 29 U/L (5-31); Bilirubin Direct 0.5 mg/dL (0.0-0.5); Bilirubin Total 0.8 mg/dL (0.0-1.0); Blood Urea Nitrogen 10 mg/dL (9-16); Calcium 10.8 mg/dL (8.4-10.2); Carbon Dioxide 17 mmol/L (22-29); Chloride 114 mmol/L (96-108); Estimated Glomerular Filt Rate 49; Glucose Random 118 mg/dL (60-115); Potassium 3.2 mmol/L (3.3-5.1); Sodium 140 mmol/L (135-145); Total Protein 7.3 g/dL (6.5-8.0)
[2020-10-10 15:30] VITALS: BP 108/66; PULSE 95; RESP 16; TEMP 36.8; O2SAT 97
--- NOTE | 2020-10-10 16:08 | PC.NURSE ---
P-redness under abdominal folds Dr. Frost notified E-awaiting new orders
[2020-10-10 16:33] LABS: Glucose, Whole Blood 101 mg/dL (60-115)
[2020-10-10] MEDS: Enoxaparin Sodium 40 MG/0.4 ML SYRINGE SUBCUT (17:51)
[2020-10-10 19:19] VITALS: BP 117/61; PULSE 94; RESP 15; TEMP 36.5; O2SAT 92
[2020-10-10 20:27] LABS: Glucose, Whole Blood 99 mg/dL (60-115)
[2020-10-10] MEDS: Insulin Glargine,Hum.rec.anlog 100 UNIT/ML 10 ML VIAL 10 UNIT SUBCUT (20:37)
[2020-10-10] MEDS: Sennosides 8.6 MG TABLET PO (20:38)
[2020-10-10] MEDS: Acetaminophen 325 MG TABLET 650 MG PO (21:16)
[2020-10-11] VITALS (7 sets, daily range): BP systolic 116–146; BP diastolic 64–80; PULSE 89–105; RESP 15–19; TEMP 36.1–36.6; O2SAT 94–99
[2020-10-11] MEDS: Omeprazole 20 MG CAPSULE.DR PO (06:44)
[2020-10-11 07:37] LABS: Alanine Aminotransferase 15 U/L (0-31); Albumin Level 1.6 g/dL (3.5-5.0); Alkaline Phosphatase 43 U/L (39-117); Anion Gap 8 (12-20); Aspartate Amino Transferase 22 U/L (5-31); Bilirubin Direct 0.5 mg/dL (0.0-0.5); Bilirubin Total 0.9 mg/dL (0.0-1.0); Blood Urea Nitrogen 11 mg/dL (9-16); Calcium 10.3 mg/dL (8.4-10.2); Carbon Dioxide 21 mmol/L (22-29); Chloride 116 mmol/L (96-108); Creatinine Clr Calc Pharmacy 56.7; Estimated Glomerular Filt Rate 53; Glucose Random 98 mg/dL (60-115); Potassium 3.6 mmol/L (3.3-5.1); Sodium 141 mmol/L (135-145); Total Protein 6.3 g/dL (6.5-8.0)
[2020-10-11] MEDS: 0.9 % Sodium Chloride 1,000 ML 100 ML IVCONT ×2 (07:51→17:41)
[2020-10-11] MEDS: Docusate Sodium 100 MG CAPSULE PO ×2 (08:15→21:22)
[2020-10-11] MEDS: allopurinoL 300 MG TABLET PO (08:15)
[2020-10-11] MEDS: amLODIPine Besylate 5 MG TABLET PO (08:15)
[2020-10-11] MEDS: Aspirin 81 MG TAB.CHEW PO (08:15)
[2020-10-11] MEDS: ondansetron HCL 4 MG/2 ML VIAL IVPUSH (08:16)
[2020-10-11] MEDS: Morphine Sulfate 2 MG/ML CARTRIDGE IVPUSH (08:16)
[2020-10-11 08:19] LABS: Glucose, Whole Blood 91 mg/dL (60-115)
[2020-10-11 11:49] LABS: Glucose, Whole Blood 94 mg/dL (60-115)
--- NOTE | 2020-10-11 12:27 | P.PNIM_ITS ---
Subjective Subjective Date of Service: 10/11/20 Interval History: the patient was seen and evaluated this morning Laying in bed, feels comfortable overall, complaining mainly of nausea and had episodes of vomiting overnight Content finish her breakfast clear liquids Denies any fever, chills or shortness of breath No reported other overnight events. Systemic review: No fever, chills or weakness No chest pain, palpitation No shortness of breath or coughing Improved abdominal pain, still have nausea and vomiting No urinary symptoms No any rash or wounds Physical Exam Vital Signs: Vital Signs: Last Vital Signs Temp 97.7 F 10/11/20 11:26 Pulse 99 10/11/20 11:26 Resp 17 10/11/20 11:26 BP 131/72 10/11/20 11:26 Pulse Ox 99 10/11/20 11:26 Body Mass Index 36.8 Const: Other: Constitutional : Alert, oriented, not in distress Neck : Normal inspection, Supple Cardiovascular : RRR, S1 S2, no lower extremity edema or erythema Respiratory : Good bilateral air entry, no crackles, wheezes or rhonchi Gastrointestinal: soft, lax, Normal bowel sounds, mild epigastric tenderness, no surgical signs Skin : Warm/Dry, No rash Neurological : Alert & oriented x3, No focal deficit Objective Data Current Medications Generic Name Dose Route Start Last Admin Trade Name Freq PRN Reason Stop Dose Admin Acetaminophen 650 mg 10/09/20 15:19 10/10/20 21:16 Acetaminophen 325 Mg Tablet PO 650 mg Q6H PRN Administration Pain, Mild (Pain Scale 1-3) Allopurinol 300 mg 10/10/20 09:00 10/11/20 08:15 Allopurinol 300 Mg Tablet PO 300 mg DAILY [facility] Administration Amlodipine Besylate 5 mg 10/10/20 09:00 10/11/20 08:15 Amlodipine Besylate 5 Mg Tablet PO 5 mg DAILY [facility] Administration Protocol Aspirin 81 mg 10/10/20 09:00 10/11/20 08:15 Aspirin 81 Mg Tab.Chew PO 81 mg DAILY [facility] Administration Bisacodyl 10 mg 10/09/20 15:19 Bisacodyl 10 Mg Supp.Rect [place] DAILY PRN constipation Docusate Sodium 100 mg 10/09/20 21:00 10/11/20 08:15 Docusate Sodium 100 Mg Capsule PO 100 mg BID [facility] Administration Enoxaparin Sodium 40 mg 10/09/20 18:00 10/10/20 17:51 Enoxaparin Sodium 40 Mg/0.4 Ml Syringe SUBCUT 40 mg Q24H [facility] Administration Sodium Chloride 1,000 mls @ 100 mls/hr 10/09/20 15:19 10/11/20 07:51 Ns IVCONT 100 mls/hr .Q10H [facility] Administration Insulin Glargine 10 unit 10/09/20 21:00 10/10/20 20:37 Insulin Glargine,Hum.Rec.Anlog 100 Unit/Ml 10 Ml Vial SUBCUT 10 unit BEDTIME [facility] Administration Insulin Human Lispro 0 unit 10/09/20 16:30 10/11/20 08:15 Insulin Lispro 100 Unit/Ml 3 Ml Vial SUBCUT Not Given QIDACHS [facility] Protocol Metoclopramide HCl 5 mg 10/11/20 11:30 Metoclopramide Hcl 5 Mg Tablet PO 10/13/20 07:31 TIDAC [facility] Morphine Sulfate 2 mg 10/09/20 13:27 10/11/20 08:16 Morphine Sulfate 2 Mg/Ml Cartridge IVPUSH 2 mg Q4H PRN Administration Pain, Severe (Pain Scale 7-10) Omeprazole 20 mg 10/10/20 06:30 10/11/20 06:44 Omeprazole 20 Mg Capsule.Dr PO 20 mg DAILY@0630 [facility] Administration Ondansetron HCl 4 mg 10/09/20 15:19 10/11/20 08:16 Ondansetron Hcl 4 Mg/2 Ml Vial IVPUSH 4 mg Q8H PRN Administration Nausea and Vomiting Senna 8.6 mg 10/09/20 21:00 10/10/20 20:38 Sennosides 8.6 Mg Tablet PO 8.6 mg BEDTIME [facility] Administration Sodium Chloride 3 ml 10/09/20 16:00 10/11/20 07:51 0.9 % Sodium Chloride Flush 3 Ml Syringe IVFLUSH Not Given QSHIFT [facility] Labs CBC & Chem 7: 10/10/20 12:03 10/11/20 06:42 Assessment and Plan (1) Acute pancreatitis: Status: Acute (2) Nausea & vomiting: Status: Acute (3) Pancytopenia: Status: Acute (4) Hypercalcemia: Status: Acute (5) Diabetes mellitus type 2, controlled, without complications: Status: Acute Assessment and Plan: A 75 years old lady with PMH of diabetes, multiple myeloma who presents to the hospital complaining of abdominal pain, nausea and vomiting for the last week. Acute pancreatitis Intractable nausea and vomiting CT scan suggestive acute pancreatitis Could be related to hypercalcemia as gallbladder removed, nonalcoholic, of 2 improved up previously Normal triglyceride Continue IV fluids Morphine for pain Reglan around the clock To check IgG4 Pending GI evaluation for recurrent pancreatitis Moderate Hypercalcemia Secondary to multiple myeloma Does not seem to be symptomatic Corrected calcium of 12.2 today Continue IV fluid with goal to bring it down Discuss with Hematology for possible need bisphosphonate Pancytopenia Secondary to Multiple myeloma Continue to monitor, no active infection noted Mild protein malnutrition Low albumin 1.6 To add supplement to diet Diabetes type 2 Use Lantus 10 units SSI DVT PPX Lovenox
--- NOTE | 2020-10-11 13:41 | CONS_ITS ---
DATE OF SERVICE: 10/11/2020 REFERRING PHYSICIAN: Kayley Frost MD REASON FOR CONSULTATION: Pancreatitis. 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 She was hospitalized earlier in the year in [place] with COVID-19, which she states caused an episode of pancreatitis and since that time, she has had difficulty eating solid food. She presented to the emergency room with the above complaints and was evaluated with CT scanning, which is interpreted as showing changes consistent with acute pancreatitis. Laboratory studies were also done, which showed hypercalcemia and elevation of her serum lipase to 113. She was admitted to the hospital and treated with IV fluids and pain medications. She has been started on clear liquids and is tolerating tea, but not Jell-O. She denies any prior history of pancreatitis before her infection. She does not drink alcohol and has had her gallbladder out. There is no evidence of hypertriglyceridemia or familial pancreatitis. PAST MEDICAL HISTORY: 1. COVID-19 infection as above. 2. Hyperlipidemia. 3. Diabetes mellitus. 4. Sleep apnea. 5. Hypertension. 6. Pancytopenia with multiple myeloma. 7. Hyperthyroidism. CURRENT MEDICATIONS: Her current medication list is reviewed in the chart. ALLERGIES: MULTIPLE MEDICATION ALLERGIES ARE REVIEWED. FAMILY HISTORY: This is reviewed with the patient and is negative for pancreatitis. SOCIAL HISTORY: She does not smoke and does not drink. She formally worked at [employer]. REVIEW OF SYSTEMS: SKIN: No pruritus. HEENT: Negative. CARDIOPULMONARY: She denies shortness of breath or chest pain. GASTROINTESTINAL: As above. GENITOURINARY: Negative. NEUROPSYCHIATRIC: Negative. PHYSICAL EXAMINATION: GENERAL: Shows a pleasant female, in no acute distress. VITAL SIGNS: Reviewed in the electronic medical record and are stable. SKIN: Anicteric. HEENT: Shows no scleral icterus. NECK: Without lymphadenopathy or thyromegaly. LUNGS: Clear. HEART: Shows regular rate and rhythm. S1, S2. No murmur. ABDOMEN: Soft without focal masses or tenderness. Bowel sounds are present. No organomegaly is noted. EXTREMITIES: Without edema. IMPRESSION: She appears to have acute pancreatitis, likely on the basis of hypercalcemia. At this point, she appears to be tolerating some clear liquids and I would recommend gradually advancing her diet as she tolerates. Continue supportive care with IV fluids and pain medications as needed. Thanks for asking me to see her. I will follow her in the hospital with you. MD DAVID Ewing/DC / [phone]
[2020-10-11 16:24] LABS: Glucose, Whole Blood 84 mg/dL (60-115)
[2020-10-11] MEDS: Enoxaparin Sodium 40 MG/0.4 ML SYRINGE SUBCUT (16:27)
[2020-10-11] MEDS: Metoclopramide HCl 5 MG TABLET PO (16:27)
[2020-10-11] MEDS: Acetaminophen 325 MG TABLET 650 MG PO (20:03)
[2020-10-11 20:35] LABS: Glucose, Whole Blood 84 mg/dL (60-115)
[2020-10-11] MEDS: Sennosides 8.6 MG TABLET PO (21:22)
[2020-10-12] MEDS: 0.9 % Sodium Chloride 1,000 ML 100 ML IVCONT ×3 (03:41→23:06)
[2020-10-12 03:58] VITALS: BP 117/63; PULSE 85; RESP 19; TEMP 36.8; O2SAT 96
[2020-10-12] MEDS: Omeprazole 20 MG CAPSULE.DR PO (06:01)
[2020-10-12 07:39] VITALS: BP 145/81; PULSE 92; RESP 18; TEMP 36.4; O2SAT 98
[2020-10-12 07:48] LABS: Glucose, Whole Blood 63 mg/dL (60-115)
[2020-10-12] MEDS: amLODIPine Besylate 5 MG TABLET PO (07:54)
[2020-10-12] MEDS: Aspirin 81 MG TAB.CHEW PO (07:54)
[2020-10-12] MEDS: Metoclopramide HCl 5 MG TABLET PO (07:54)
[2020-10-12] MEDS: allopurinoL 300 MG TABLET PO (07:54)
[2020-10-12 11:13] VITALS: BP 100/53; PULSE 94; RESP 18; TEMP 36.4; O2SAT 95
[2020-10-12 11:39] LABS: Glucose, Whole Blood 95 mg/dL (60-115)
--- NOTE | 2020-10-12 12:11 | PM.HEMONCCN ---
Subjective - Subjective Chief complaint: Abdominal pain Patient: known to practice within the last 3 years Consult date: 10/12/20 Primary Care Provider: Iveth Cowart MD HPI - Consult Narrative Reason for consult: Hypercalcemia secondary to multiple myeloma Narrative: Klaudia Dow is a 75 year old female who presents to the hospital complaining of abdominal pain, nausea and vomiting for the last week. The patient was discharged from [facility] earlier this year for COVID-19 infection complicated by acute pancreatitis. She reports that she did not feel normal since the COVID-19 infection as she ended up having G-tube for a while which was later removed. She lost some weight over the last few months by almost 40 lb. She feels tired and lethargic. CT scan done in the emergency showing possible acute pancreatitis with mildly elevated pancreatic enzymes. She was seen in consultation by Dr. Raman on October 06. Blood work was ordered for multiple myeloma and she was scheduled as outpatient for CT-guided bone marrow biopsy this Monday. Review of Systems - Constitutional Reports fatigue, Reports lack of energy, Reports malaise, Reports poor appetite, Reports weakness, Reports weight loss - Cardiovascular Reports no additional cardiovascular complaints - Respiratory Reports no additional respiratory complaints - Gastrointestinal Reports abdominal pain, Reports change in bowel habits Oncology Screenings - ECOG Performance Status ECOG Performance Status: 2 [facility] Medical History: Medical History (Last Reviewed 10/10/20 @ 11:51 by Jamari Sahu, PT) Diabetes mellitus type 2, controlled, without complications Essential hypertension Hypercalcemia Hyperlipidemia, unspecified Hypoglycemia unawareness associated with type 2 diabetes mellitus Obstructive sleep apnea Pancytopenia Subclinical hyperthyroidism Family History: Family History (Last Reviewed 10/09/20 @ 13:34 by Kayley Frost MD) Father No problems noted. Mother Heart disease Brother Atrial fibrillation Brother Atrial fibrillation Brother Atrial fibrillation Surgical History: Surgical History (Last Reviewed 10/10/20 @ 11:51 by Jamari Sahu, PT) History of knee replacement History of left hip replacement Social History: Social History (Last Reviewed 10/09/20 @ 13:35 by Kayley Frost MD) Living Situation History: Household Members: Family Housing: House Alcohol History: Alcohol intake: never Alcohol History Details: Alcohol intake frequency: does not drink Advance Directives: Advance Directives Date on File: 10/09/20 Occupation Assessmet: service: No Current occupational status: retired Smoking status: Former smoker Home Medications and Allergies Current Medications: Current Medications Generic Name Dose Route Start Last Admin Trade Name Marjorie PRN Reason Stop Dose Admin Acetaminophen 650 mg 10/09/20 15:19 10/11/20 20:03 Acetaminophen 325 Mg Tablet PO 650 mg Q6H PRN Administration Pain, Mild (Pain Scale 1-3) Allopurinol 300 mg 10/10/20 09:00 10/12/20 07:54 Allopurinol 300 Mg Tablet PO 300 mg DAILY [facility] Administration Amlodipine Besylate 5 mg 10/10/20 09:00 10/12/20 07:54 Amlodipine Besylate 5 Mg Tablet PO 5 mg DAILY [facility] Administration Protocol Aspirin 81 mg 10/10/20 09:00 10/12/20 07:54 Aspirin 81 Mg Tab.Chew PO 81 mg DAILY [facility] Administration Bisacodyl 10 mg 10/09/20 15:19 Bisacodyl 10 Mg Supp.Rect [place] DAILY PRN constipation Docusate Sodium 100 mg 10/09/20 21:00 10/12/20 07:49 Docusate Sodium 100 Mg Capsule PO Not Given BID [facility] Enoxaparin Sodium 40 mg 10/09/20 18:00 10/11/20 16:27 Enoxaparin Sodium 40 Mg/0.4 Ml Syringe SUBCUT 40 mg Q24H [facility] Administration Sodium Chloride 1,000 mls @ 150 mls/hr 10/09/20 15:19 10/12/20 03:41 Ns IVCONT 100 mls/hr .Q6H40M [facility] Administration Insulin Human Lispro 0 unit 10/09/20 16:30 10/12/20 12:02 Insulin Lispro 100 Unit/Ml 3 Ml Vial SUBCUT Not Given QIDACHS [facility] Protocol Metoclopramide HCl 10 mg 10/12/20 11:30 Metoclopramide Hcl 10 Mg Tablet PO 10/14/20 16:31 TIDAC [facility] Morphine Sulfate 2 mg 10/09/20 13:27 10/11/20 08:16 Morphine Sulfate 2 Mg/Ml Cartridge IVPUSH 2 mg Q4H PRN Administration Pain, Severe (Pain Scale 7-10) Omeprazole 20 mg 10/10/20 06:30 10/12/20 06:01 Omeprazole 20 Mg Capsule.Dr PO 20 mg DAILY@0630 [facility] Administration Ondansetron HCl 4 mg 10/09/20 15:19 10/11/20 08:16 Ondansetron Hcl 4 Mg/2 Ml Vial IVPUSH 4 mg Q8H PRN Administration Nausea and Vomiting Senna 8.6 mg 10/09/20 21:00 10/11/20 21:22 Sennosides 8.6 Mg Tablet PO 8.6 mg BEDTIME [facility] Administration Sodium Chloride 3 ml 10/09/20 16:00 10/12/20 07:46 0.9 % Sodium Chloride Flush 3 Ml Syringe IVFLUSH Not Given QSHIFT [facility] Home Medications Medication Instructions Recorded Confirmed Type allopurinol 300 mg tablet 300 mg PO DAILY 04/22/20 10/09/20 History aspirin 81 mg chewable tablet 81 mg PO DAILY 04/22/20 10/09/20 History docusate sodium 100 mg capsule 100 mg PO BID 04/22/20 10/09/20 History insulin aspart U-100 100 unit/mL 2 - 12 unit SUBCUT TID 04/22/20 10/09/20 History (3 mL) subcutaneous pen omeprazole 20 mg capsule,delayed 20 mg PO DAILY 04/22/20 10/09/20 History release amlodipine 5 mg tablet 5 mg PO DAILY 09/30/20 10/09/20 History insulin detemir U-100 100 unit/mL 20 unit SUBCUT BEDTIME ml 09/30/20 10/09/20 History (3 mL) subcutaneous pen polyethylene glycol 3350 [Miralax] 17 g PO DAILY 10/06/20 10/09/20 History bisacodyl 1 supp CO DAILY PRN 10/09/20 10/09/20 History sennosides [senna] 8.6 mg PO BEDTIME 10/09/20 10/09/20 History Allergies Allergy/AdvReac Type Severity Reaction Status Date / Time codeine [CODEINE] Allergy Intermediate NAUSEA & Verified 07/26/20 06:57 VOMITING, vomiting lisinopril [LISINOPRIL] Allergy Intermediate COUGH, Verified 07/26/20 06:57 Coughing sulfamethoxazole Allergy Intermediate RASH Verified 07/26/20 06:57 [From BACTRIM] Physical Exam Vital signs: Vital Signs Temp 97.5 F 10/12/20 11:13 Pulse 94 10/12/20 11:13 Resp 18 10/12/20 11:13 BP 100/53 L 10/12/20 11:13 Pulse Ox 95 10/12/20 11:13 Intake & Output 10/11/20 10/12/20 10/12/20 18:59 06:59 18:59 Intake Total 1343.333 / 3213.333 1870 / 3213.333 Output Total 601 / 601 Balance 1343.333 / 2612.333 1269 / 2612.333 Urine Output (Average ml/kg/hr) 0.50 Intake: Intake, Oral Amount 360 / 1230 870 / 1230 Intake, IV Amount 983.333 / 2374.756 8578 / 1983.333 0.9 % Sodium Chloride 1,000 ml 983.333 / 0729.155 0482 / 1982.333 @ 100 mls/hr IVCONT .Q10H [facility] Rx#:[id number] Output: Output, Urine Amount 601 / 601 Other: Meal Refused No NPO No Breakfast % Eaten 50% Lunch % Eaten 25% Dinner % Eaten liq. diet Number of Unmeasured Voids 3 Number of Bowel Movements 0 Urine Bedside Commode Bedpan Urine Color Yellow Coni Weight 100.244 kg - Constitutional Present: no acute distress - Routine HEENT Exam Head: Present: normal inspection Eye: Present: EOMI, PERRL - Routine Neck Exam Absent: lymphadenopathy - Routine Respiratory Exam Absent: accessory muscle use - Routine Cardiovascular Exam Cardiovascular: Present: S1, S2 Hem/Onc Consult Result - Labs CBC & Chem 7: 10/10/20 12:03 10/11/20 06:42 Assessment and Plan (1) Multiple myeloma Status: Acute Qualifiers: Multiple myeloma remission status: not in remission Qualified Code(s): C90.00 - Multiple myeloma not having achieved remission 1. This is a 75-year-old woman with probable IgG kappa light chain multiple myeloma. Serum protein electrophoresis and immunofixation revealed IgG kappa monoclonal band with elevated free kappa light chains. Abnormal free Light chain ratio of 586, beta 2 microglobulin severely elevated at 22.59. IgG elevated over 2.2 g with suppressed IgA and IgM levels. She is developing mild renal insufficiency and she has hypercalcemia. She has pancytopenia. Clinical picture is consistent with advanced multiple myeloma with light chain disease. She is fairly symptomatic from this. She appears to have recurrent pancreatitis perhaps triggered by the hypercalcemia. I have spoken to intervention radiologist and moved up her bone marrow biopsy to 10/13/2020. Her calcium levels have come down and she is doing better with IV hydration. Start dexamethasone 40 mg IV daily for 4 days, pulse steroids for treatment of hypercalcemia and multiple myeloma until definitive diagnosis is known. I discussed all of the above with patient and she is willing to proceed with above recommendations. I thank you for this consultation, will follow with you.
[2020-10-12] MEDS: Metoclopramide HCl 10 MG TABLET PO ×2 (12:38→17:14)
--- NOTE | 2020-10-12 14:15 | HO.PM.IMPN ---
Subjective Subjective Date of Service: 10/12/20 Interval History: the patient was seen and evaluated this morning Laying in bed, feels comfortable overall, complaining mainly of nausea and had episodes of vomiting overnight Content finish her breakfast clear liquids Denies any fever, chills or shortness of breath No reported other overnight events. Systemic review: No fever, chills or weakness No chest pain, palpitation No shortness of breath or coughing Improved abdominal pain, still have nausea and vomiting No urinary symptoms No any rash or wounds Physical Exam Vital Signs: Vital Signs: Last Vital Signs Temp 97.5 F 10/12/20 11:13 Pulse 94 10/12/20 11:13 Resp 18 10/12/20 11:13 BP 100/53 L 10/12/20 11:13 Pulse Ox 95 10/12/20 11:13 Body Mass Index 36.8 Const: Other: Constitutional : Alert, oriented, not in distress Neck : Normal inspection, Supple Cardiovascular : RRR, S1 S2, no lower extremity edema or erythema Respiratory : Good bilateral air entry, no crackles, wheezes or rhonchi Gastrointestinal: soft, lax, Normal bowel sounds, mild epigastric tenderness, no surgical signs Skin : Warm/Dry, No rash Neurological : Alert & oriented x3, No focal deficit Objective Data Current Medications Generic Name Dose Route Start Last Admin Trade Name Freq PRN Reason Stop Dose Admin Acetaminophen 650 mg 10/09/20 15:19 10/11/20 20:03 Acetaminophen 325 Mg Tablet PO 650 mg Q6H PRN Administration Pain, Mild (Pain Scale 1-3) Allopurinol 300 mg 10/10/20 09:00 10/12/20 07:54 Allopurinol 300 Mg Tablet PO 300 mg DAILY [facility] Administration Amlodipine Besylate 5 mg 10/10/20 09:00 10/12/20 07:54 Amlodipine Besylate 5 Mg Tablet PO 5 mg DAILY [facility] Administration Protocol Aspirin 81 mg 10/10/20 09:00 10/12/20 07:54 Aspirin 81 Mg Tab.Chew PO 81 mg DAILY [facility] Administration Bisacodyl 10 mg 10/09/20 15:19 Bisacodyl 10 Mg Supp.Rect DE DAILY PRN constipation Dexamethasone Sodium Phosphate 40 mg 10/12/20 14:15 Dexamethasone Sod Phosphate/Pf 10 Mg/Ml Vial IVPUSH 10/15/20 09:01 DAILY [facility] Docusate Sodium 100 mg 10/09/20 21:00 10/12/20 07:49 Docusate Sodium 100 Mg Capsule PO Not Given BID [facility] Enoxaparin Sodium 40 mg 10/09/20 18:00 10/11/20 16:27 Enoxaparin Sodium 40 Mg/0.4 Ml Syringe SUBCUT 40 mg Q24H [facility] Administration Sodium Chloride 1,000 mls @ 150 mls/hr 10/09/20 15:19 10/12/20 14:12 Ns IVCONT 100 mls/hr .Q6H40M [facility] Administration Insulin Human Lispro 0 unit 10/09/20 16:30 10/12/20 12:02 Insulin Lispro 100 Unit/Ml 3 Ml Vial SUBCUT Not Given QIDACHS [facility] Protocol Metoclopramide HCl 10 mg 10/12/20 11:30 10/12/20 12:38 Metoclopramide Hcl 10 Mg Tablet PO 10/14/20 16:31 10 mg TIDAC [facility] Administration Morphine Sulfate 2 mg 10/09/20 13:27 10/11/20 08:16 Morphine Sulfate 2 Mg/Ml Cartridge IVPUSH 2 mg Q4H PRN Administration Pain, Severe (Pain Scale 7-10) Omeprazole 20 mg 10/10/20 06:30 10/12/20 06:01 Omeprazole 20 Mg Capsule.Dr PO 20 mg DAILY@0630 [facility] Administration Ondansetron HCl 4 mg 10/09/20 15:19 10/11/20 08:16 Ondansetron Hcl 4 Mg/2 Ml Vial IVPUSH 4 mg Q8H PRN Administration Nausea and Vomiting Senna 8.6 mg 10/09/20 21:00 10/11/20 21:22 Sennosides 8.6 Mg Tablet PO 8.6 mg BEDTIME [facility] Administration Sodium Chloride 3 ml 10/09/20 16:00 10/12/20 07:46 0.9 % Sodium Chloride Flush 3 Ml Syringe IVFLUSH Not Given QSHIFT [facility] Labs CBC & Chem 7: 10/10/20 12:03 10/11/20 06:42 Assessment and Plan (1) Acute pancreatitis: Status: Acute (2) Nausea & vomiting: Status: Acute (3) Pancytopenia: Status: Acute (4) Hypercalcemia: Status: Acute (5) Diabetes mellitus type 2, controlled, without complications: Status: Acute Assessment and Plan: A 75 years old lady with PMH of diabetes, multiple myeloma who presents to the hospital complaining of abdominal pain, nausea and vomiting for the last week. Acute pancreatitis Intractable nausea and vomiting CT scan suggestive acute pancreatitis Likely related to hypercalcemia Increase IV fluids Morphine for pain Reglan around the clock Pending IgG4 GI input appreciated, likely result of hypercalcemia continue current management Moderate Hypercalcemia Secondary to multiple myeloma Corrected calcium of 12.2 today Continue IV fluid Hematology input appreciated, start dexamethasone high-dose Pancytopenia Secondary to Multiple myeloma To do bone [place] biopsy tomorrow morning the Mild protein malnutrition Low albumin 1.6 To add supplement to diet Hypoglycemia secondary to Diabetes type 2 Discontinue Lantus 10 units SSI DVT PPX Hold Lovenox
[2020-10-12 15:07] LABS: Glucose Urine UA NEG (NEG); Leukocyte Esterase Urine 2+ (NEG); Nitrite Urine NEG (NEG); Specific Gravity - Urine >= 1.030 (1.005-1.025); UACC Culture Trigger YES; Urine Blood 1+ (NEG); Urine Ketones 15 MG/DL (NEG); Urine Protein 1+ MG/DL (NEG-TRACE)
[2020-10-12 15:07] LABS: Iron 66 mcg/dL (30-160); Percent Iron Saturation 65 % (15-50); Total Iron Binding Capacity 101 mcg/dL (228-428); Unsaturated Iron Binding 35 ug/dL
[2020-10-12 15:09] LABS: Appearance Urine HAZY; Color Urine YELLOW
[2020-10-12 15:16] LABS: Bacteria Urine 1+ /LPF; Squamous Epithelial Cell Urine 2+ /LPF; UACC CULT YES
[2020-10-12 15:17] LABS: Calcium Oxalate Crystals Urine 3+ /LPF
[2020-10-12 15:45] LABS: Folate 5.6 ng/mL (> or = 4.0); Vitamin B12 401 pg/mL (200-900)
--- NOTE | 2020-10-12 15:52 | MHC.CM.PN ---
NURSE POLITICAL RESEARCHER NOTE ELECTRONIC MEDICAL RECORD REVIEWED ALONG WITH CASE DISCUSSED ON MULTIPLE DISCIPLINARY ROUNDS. MET WITH PATIENT SHE IS STILL FEELING NAUSEA , PATIENT CAME TO THE ER SECONDARY TO ABDOMINAL PAIN , NAUSEA AND EMESIS, WITH WEIGHT LOSS (HISTORY OF POSITIVE COVID AT [facility] ) THE BEGINNING OF THE YEAR PER DOCUMENTATION ACUTE PANCREATITIS NAUSEA EMESIS PANCYTOPENIA HYPERCALCEMIA (HIS, ANTICIPATE BONE MARROW BX TOMORROW DISCHARGE PLAN HOME WITH WITH RESUMPTION OF HER VNA WITH [facility] GI CONSULT , .
[2020-10-12 15:53] VITALS: BP 118/63; PULSE 93; RESP 15; TEMP 35.4; O2SAT 97
[2020-10-12 19:52] VITALS: BP 111/66; PULSE 97; RESP 14; TEMP 35.6; O2SAT 94
[2020-10-12 21:08] LABS: Glucose, Whole Blood 182 mg/dL (60-115)
[2020-10-12] MEDS: Docusate Sodium 100 MG CAPSULE PO (21:43)
[2020-10-12] MEDS: Sennosides 8.6 MG TABLET PO (21:43)
[2020-10-13] VITALS (7 sets, daily range): BP systolic 113–138; BP diastolic 55–75; PULSE 80–100; RESP 14–18; TEMP 35.9–36.6; O2SAT 96–98; BMI 36.8
[2020-10-13 07:09] LABS: Alanine Aminotransferase 14 U/L (0-31); Albumin Level 1.6 g/dL (3.5-5.0); Alkaline Phosphatase 39 U/L (39-117); Anion Gap 12 (12-20); Aspartate Amino Transferase 20 U/L (5-31); Bilirubin Direct 0.4 mg/dL (0.0-0.5); Bilirubin Total 0.8 mg/dL (0.0-1.0); Blood Urea Nitrogen 14 mg/dL (9-16); Calcium 9.9 mg/dL (8.4-10.2); Carbon Dioxide 15 mmol/L (22-29); Chloride 115 mmol/L (96-108); Creatinine Clr Calc Pharmacy 56.2; Estimated Glomerular Filt Rate 52; Glucose Random 206 mg/dL (60-115); Potassium 3.8 mmol/L (3.3-5.1); Sodium 138 mmol/L (135-145); Total Protein 6.4 g/dL (6.5-8.0)
[2020-10-13 08:39] LABS: Glucose, Whole Blood 177 mg/dL (60-115)
[2020-10-13] MEDS: cefTRIAXone sodium 1 GM in 0.9 % Sodium Chloride 50 ML IV (09:20)
[2020-10-13] MEDS: 0.9 % Sodium Chloride 1,000 ML 100 ML IVCONT ×2 (09:21→15:58)
[2020-10-13 10:46] LABS: Glucose, Whole Blood 110 mg/dL (60-115)
[2020-10-13 12:15] LABS: Glucose, Whole Blood 191 mg/dL (60-115)
--- NOTE | 2020-10-13 14:06 | P.PNIM_ITS ---
Subjective Subjective Date of Service: 10/13/20 Interval History: the patient was seen and evaluated this morning Laying in bed, feels comfortable overall, nausea and vomiting improved sig nificantly overnight Plan for bone [place] biopsy today to Denies any fever, chills or shortness of breath No reported other overnight events. Systemic review: No fever, chills or weakness No chest pain, palpitation No shortness of breath or coughing Improved abdominal pain, is significantly improved nausea and vomiting No urinary symptoms No any rash or wounds Physical Exam Vital Signs: Vital Signs: Last Vital Signs Temp 97.8 F 10/13/20 11:28 Pulse 80 10/13/20 11:28 Resp 18 10/13/20 11:28 BP 130/55 L 10/13/20 11:28 Pulse Ox 98 10/13/20 11:28 Body Mass Index 36.8 Const: Other: Constitutional : Alert, oriented, not in distress Neck : Normal inspection, Supple Cardiovascular : RRR, S1 S2, no lower extremity edema or erythema Respiratory : Good bilateral air entry, no crackles, wheezes or rhonchi Gastrointestinal: soft, lax, Normal bowel sounds, mild epigastric tenderness, no surgical signs Skin : Warm/Dry, No rash Neurological : Alert & oriented x3, No focal deficit Objective Data Current Medications Generic Name Dose Route Start Last Admin Trade Name Freq PRN Reason Stop Dose Admin Acetaminophen 650 mg 10/09/20 15:19 10/11/20 20:03 Acetaminophen 325 Mg Tablet PO 650 mg Q6H PRN Administration Pain, Mild (Pain Scale 1-3) Allopurinol 300 mg 10/10/20 09:00 10/13/20 09:21 Allopurinol 300 Mg Tablet PO Not Given DAILY [facility] Amlodipine Besylate 5 mg 10/10/20 09:00 10/13/20 09:22 Amlodipine Besylate 5 Mg Tablet PO Not Given DAILY [facility] Protocol Aspirin 81 mg 10/10/20 09:00 10/13/20 09:22 Aspirin 81 Mg Tab.Chew PO Not Given DAILY [facility] Bisacodyl 10 mg 10/09/20 15:19 Bisacodyl 10 Mg Supp.Rect [place] DAILY PRN constipation Dexamethasone Sodium Phosphate 40 mg 10/12/20 14:15 10/13/20 09:21 Dexamethasone Sod Phosphate/Pf 10 Mg/Ml Vial IVPUSH 04/01/21 09:01 40 mg DAILY [facility] Administration Docusate Sodium 100 mg 10/09/20 21:00 10/13/20 09:22 Docusate Sodium 100 Mg Capsule PO Not Given BID [facility] Enoxaparin Sodium 40 mg 10/09/20 18:00 10/12/20 17:17 Enoxaparin Sodium 40 Mg/0.4 Ml Syringe SUBCUT Not Given Q24H [facility] Sodium Chloride 1,000 mls @ 150 mls/hr 10/09/20 15:19 10/13/20 09:21 Ns IVCONT 100 mls/hr .Q6H40M [facility] Administration Ceftriaxone Sodium 1 gm/ 50 mls @ 100 mls/hr 10/13/20 09:00 10/13/20 10:05 Sodium Chloride IV Infused Q24H [facility] Infusion Insulin Human Lispro 0 unit 10/09/20 16:30 10/13/20 12:14 Insulin Lispro 100 Unit/Ml 3 Ml Vial SUBCUT Not Given QIDACHS [facility] Protocol Metoclopramide HCl 10 mg 10/12/20 11:30 10/13/20 12:14 Metoclopramide Hcl 10 Mg Tablet PO 10/14/20 16:31 Not Given TIDAC [facility] Morphine Sulfate 2 mg 10/09/20 13:27 10/11/20 08:16 Morphine Sulfate 2 Mg/Ml Cartridge IVPUSH 2 mg Q4H PRN Administration Pain, Severe (Pain Scale 7-10) Omeprazole 20 mg 10/10/20 06:30 10/13/20 05:52 Omeprazole 20 Mg Capsule.Dr PO Not Given DAILY@0630 [facility] Ondansetron HCl 4 mg 10/09/20 15:19 10/11/20 08:16 Ondansetron Hcl 4 Mg/2 Ml Vial IVPUSH 4 mg Q8H PRN Administration Nausea and Vomiting Senna 8.6 mg 10/09/20 21:00 10/12/20 21:43 Sennosides 8.6 Mg Tablet PO 8.6 mg BEDTIME [facility] Administration Sodium Chloride 3 ml 10/09/20 16:00 10/13/20 07:46 0.9 % Sodium Chloride Flush 3 Ml Syringe IVFLUSH Not Given QSHIFT [facility] Labs CBC & Chem 7: 10/10/20 12:03 10/13/20 05:57 Microbiology Microbiology Results: Microbiology 10/12/20 15:10 Urine clean catch - Clean Catch Midstream Urine Culture - P reliminary Gram negative libby Assessment and Plan (1) Multiple myeloma: Status: Acute (2) Acute pancreatitis: Status: Acute (3) Nausea & vomiting: Status: Acute (4) Pancytopenia: Status: Acute (5) Hypoglycemia unawareness associated with type 2 diabetes mellitus: Status: Acute (6) Subclinical hyperthyroidism: Status: Acute (7) Hypercalcemia: Status: Acute Assessment and Plan: A 75 years old lady with PMH of diabetes, multiple myeloma who presents to the hospital complaining of abdominal pain, nausea and vomiting for the last week. Acute pancreatitis Intractable nausea and vomiting, improving CT scan suggestive acute pancreatitis Likely related to hypercalcemia Improving Decrease IV fluids Morphine for pain Reglan around the clock Pending IgG4e the GI input appreciated, likely result of hypercalcemia continue current management Moderate Hypercalcemia Secondary to multiple myeloma Corrected calcium of 11.8 today Continue IV fluid Hematology input appreciated, dexamethasone high-dose 40 mg daily IV D2/5 a Pancytopenia Secondary to Multiple myeloma bone [place] biopsy today UTI UCx GNR Continue Ceftriaxone D1 Mild protein malnutrition Low albumin 1.6 To add supplement to diet Hypoglycemia secondary to Diabetes type 2 Discontinue Lantus 10 units SSI DVT PPX Hold Lovenox
--- NOTE | 2020-10-13 14:09 | MHC.CLN ---
RE: CONSULT PT IS MODERATELY MALNOURISHED R/T MILDLY DEPLETED SUBCUTANEOUS FAT AND MUSCLE MASS WITH POOR PO INTAKE X 3 MONTHS PO INTAKE 50% AVG DIET RX: F/L-APPROPRIATE PT C/O N/V R/T ACUTE PANCREATITIS RECOMMEND ADDING ENSURE TID TO INCREASE KCALS
[2020-10-13 15:17] LABS: Bone Marrow SEE SEPARATE REPORT
[2020-10-13] MEDS: Lidocaine HCl 1 % MPF 5 ML VIAL 10 ML SUBCUT (15:34)
[2020-10-13] MEDS: 0.9 % Sodium Chloride Flush 3 ML SYRINGE IVFLUSH (15:49)
[2020-10-13 16:30] LABS: Glucose, Whole Blood 191 mg/dL (60-115)
[2020-10-13] MEDS: Metoclopramide HCl 10 MG TABLET PO (18:42)
[2020-10-13 18:51] LABS: Glucose, Whole Blood 228 mg/dL (60-115)
[2020-10-13] MEDS: Insulin Lispro 100 UNIT/ML 3 ML VIAL SUBCUT (18:52)
[2020-10-13] MEDS: Docusate Sodium 100 MG CAPSULE PO (21:34)
[2020-10-13] MEDS: Sennosides 8.6 MG TABLET PO (21:34)
[2020-10-14] VITALS (7 sets, daily range): BP systolic 111–136; BP diastolic 53–70; PULSE 64–90; RESP 18–20; TEMP 35.9–36.6; O2SAT 95–98
[2020-10-14] MEDS: 0.9 % Sodium Chloride 1,000 ML 100 ML IVCONT (00:37)
[2020-10-14] MEDS: Acetaminophen 325 MG TABLET 650 MG PO ×2 (00:49→07:42)
[2020-10-14] MEDS: Omeprazole 20 MG CAPSULE.DR PO (06:29)
[2020-10-14 06:41] LABS: Hematocrit 26.1 % (37-47); Hemoglobin 8.4 g/dl (12.0-16.0); Mean Corpuscular HGB Conc 32.2 g/dl (31.0-35.0); Mean Corpuscular Hemoglobin 31.3 pg (27.0-33.0); Mean Corpuscular Volume 97.4 fL (80-98); Mean Platelet Volume 11.1 fL (9.4-12.3); Red Blood Count 2.68 X10*6/uL (4.20-5.50); Red Cell Distribution Width 15.9 % (11.0-16.0)
[2020-10-14 06:45] LABS: Platelet Count 74 X10*3/uL (160-400); White Blood Count 1.9 X10*3/uL (4.8-10.8)
[2020-10-14 07:16] LABS: Anion Gap 10 (12-20); Blood Urea Nitrogen 23 mg/dL (9-16); Calcium 9.3 mg/dL (8.4-10.2); Carbon Dioxide 18 mmol/L (22-29); Chloride 112 mmol/L (96-108); Creatinine Clr Calc Pharmacy 53.6; Estimated Glomerular Filt Rate 50; Glucose Random 279 mg/dL (60-115); Potassium 3.6 mmol/L (3.3-5.1); Sodium 136 mmol/L (135-145)
[2020-10-14] MEDS: Metoclopramide HCl 10 MG TABLET PO (07:43)
[2020-10-14] MEDS: Insulin Lispro 100 UNIT/ML 3 ML VIAL SUBCUT ×4 (08:02→20:20)
[2020-10-14 08:25] LABS: Glucose, Whole Blood 247 mg/dL (60-115)
[2020-10-14] MEDS: cefTRIAXone sodium 1 GM in 0.9 % Sodium Chloride 50 ML IV (10:27)
[2020-10-14] MEDS: amLODIPine Besylate 5 MG TABLET PO (10:28)
[2020-10-14] MEDS: Docusate Sodium 100 MG CAPSULE PO ×2 (10:28→20:20)
[2020-10-14] MEDS: allopurinoL 300 MG TABLET PO (10:29)
[2020-10-14] MEDS: Aspirin 81 MG TAB.CHEW PO (10:29)
[2020-10-14 11:56] LABS: Glucose, Whole Blood 311 mg/dL (60-115)
[2020-10-14] MEDS: Metoclopramide HCl 5 MG TABLET PO ×2 (12:05→16:43)
[2020-10-14] MEDS: polyethylene glycoL 3350 17 GM POWD.PACK PO ×2 (12:05→20:20)
--- NOTE | 2020-10-14 13:15 | MHC.CM.PN ---
NURSE POSTMASTER NOTE DISCUSSED WITH CASE WITH HOSPITALIST PATIENT HAD BONE MARROW BIOPSY DONE ON 10/13 SHE NEEDS TO COMPLETE HER COURSE OF IV ANTIBIOTICS THROUGH TODAY AND ANTICI[[place] DISCHARGE HOME TOMORROW WITH NO SERVICES WITH CASE DISCUSSED ON MULTIPLE DISCIPLINARY ROUNDS, PER HOSPITALIST , BONE MARROW BX WAS DONE YESTERDAY SHE NEEDS TO COMPLEAT HER ANTIBIOTICS FOR TODAY AND ANTICIPATE DISCHARGE HOME NO SERVICES TOMORROW 10/15/20
--- NOTE | 2020-10-14 13:28 | P.PNIM_ITS ---
Subjective Subjective Date of Service: 10/14/20 Interval History: the patient was seen and evaluated this morning Laying in bed, feels comfortable overall, nausea and vomiting improved sig nificantly and she feels much better Still complaining of constipation for the last 4 days Denies any fever, chills or shortness of breath No reported other overnight events. Systemic review: No fever, chills or weakness No chest pain, palpitation No shortness of breath or coughing Improved abdominal pain, is significantly improved nausea and vomiting No urinary symptoms No any rash or wounds Physical Exam Vital Signs: Vital Signs: Last Vital Signs Temp 96.7 F L 10/14/20 11:46 Pulse 81 10/14/20 11:46 Resp 18 10/14/20 11:46 BP 111/67 10/14/20 11:46 Pulse Ox 98 10/14/20 11:46 Body Mass Index 36.8 Const: Other: Constitutional : Alert, oriented, not in distress Neck : Normal inspection, Supple Cardiovascular : RRR, S1 S2, no lower extremity edema or erythema Respiratory : Good bilateral air entry, no crackles, wheezes or rhonchi Gastrointestinal: soft, lax, Normal bowel sounds, mild epigastric tenderness, no surgical signs Skin : Warm/Dry, No rash Neurological : Alert & oriented x3, No focal deficit Objective Data Current Medications Generic Name Dose Route Start Last Admin Trade Name Freq PRN Reason Stop Dose Admin Acetaminophen 650 mg 10/09/20 15:19 10/14/20 07:42 Acetaminophen 325 Mg Tablet PO 650 mg Q6H PRN Administration Pain, Mild (Pain Scale 1-3) Allopurinol 300 mg 10/10/20 09:00 10/14/20 10:29 Allopurinol 300 Mg Tablet PO 300 mg DAILY [facility] Administration Amlodipine Besylate 5 mg 10/10/20 09:00 10/14/20 10:28 Amlodipine Besylate 5 Mg Tablet PO 5 mg DAILY [facility] Administration Protocol Aspirin 81 mg 10/10/20 09:00 10/14/20 10:29 Aspirin 81 Mg Tab.Chew PO 81 mg DAILY [facility] Administration Bisacodyl 10 mg 10/09/20 15:19 Bisacodyl 10 Mg Supp.Rect DE DAILY PRN constipation Dexamethasone Sodium Phosphate 40 mg 10/12/20 14:15 10/14/20 10:31 Dexamethasone Sod Phosphate/Pf 10 Mg/Ml Vial IVPUSH 10/15/20 09:01 40 mg DAILY [facility] Administration Docusate Sodium 100 mg 10/09/20 21:00 10/14/20 10:28 Docusate Sodium 100 Mg Capsule PO 100 mg BID [facility] Administration Enoxaparin Sodium 40 mg 10/09/20 18:00 10/13/20 19:00 Enoxaparin Sodium 40 Mg/0.4 Ml Syringe SUBCUT Not Given Q24H [facility] Ceftriaxone Sodium 1 gm/ 50 mls @ 100 mls/hr 10/13/20 09:00 10/14/20 11:17 Sodium Chloride IV Infused Q24H [facility] Infusion Insulin Human Lispro 0 unit 10/09/20 16:30 10/14/20 12:04 Insulin Lispro 100 Unit/Ml 3 Ml Vial SUBCUT 8 unit QIDACHS [facility] Administration Protocol Metoclopramide HCl 5 mg 10/14/20 11:30 10/14/20 12:05 Metoclopramide Hcl 5 Mg Tablet PO 10/15/20 11:31 5 mg TIDAC [facility] Administration Morphine Sulfate 2 mg 10/09/20 13:27 10/11/20 08:16 Morphine Sulfate 2 Mg/Ml Cartridge IVPUSH 2 mg Q4H PRN Administration Pain, Severe (Pain Scale 7-10) Omeprazole 20 mg 10/10/20 06:30 10/14/20 06:29 Omeprazole 20 Mg Capsule.Dr PO 20 mg DAILY@0630 [facility] Administration Ondansetron HCl 4 mg 10/09/20 15:19 10/11/20 08:16 Ondansetron Hcl 4 Mg/2 Ml Vial IVPUSH 4 mg Q8H PRN Administration Nausea and Vomiting Polyethylene Glycol 17 gm 10/14/20 10:50 10/14/20 12:05 Polyethylene Glycol 3350 17 Gm Powd.Pack PO 17 gm BID [facility] Administration Senna 8.6 mg 10/09/20 21:00 10/13/20 21:34 Sennosides 8.6 Mg Tablet PO 8.6 mg BEDTIME [facility] Administration Sodium Chloride 3 ml 10/09/20 16:00 10/14/20 08:03 0.9 % Sodium Chloride Flush 3 Ml Syringe IVFLUSH Not Given QSHIFT [facility] Labs CBC & Chem 7: 10/14/20 06:07 10/14/20 06:07 Microbiology Microbiology Results: Microbiology 10/12/20 15:10 Urine clean catch - Clean Catch Midstream Urine Culture - Final Proteus mirabilis Assessment and Plan (1) Multiple myeloma: Status: Acute (2) Acute pancreatitis: Status: Acute (3) Nausea & vomiting: Status: Acute (4) Pancytopenia: Status: Acute (5) Hypoglycemia unawareness associated with type 2 diabetes mellitus: Status: Acute (6) Subclinical hyperthyroidism: Status: Acute (7) Hypercalcemia: Status: Acute Assessment and Plan: A 75 years old lady with PMH of diabetes, multiple myeloma who presents to the hospital complaining of abdominal pain, nausea and vomiting for the last week. Acute pancreatitis Intractable nausea and vomiting, improving CT scan suggestive acute pancreatitis Likely related to hypercalcemia Resolving Discontinue IV fluids Morphine for pain Reglan decreased to 5 mg t.i.d. Pending IgG4 GI input appreciated, likely result of hypercalcemia continue current management Diet advanced to regular, bland diet. Patient prefers that for now Moderate Hypercalcemia Secondary to multiple myeloma Corrected calcium of 11.2 today Discontinue IV fluid Hematology input appreciated, dexamethasone high-dose 40 mg daily IV D3/4 Constipation Continue Colace, senna To add MiraLax b.i.d. Goal to move her bowel before DC Pancytopenia Secondary to Multiple myeloma bone [place] biopsy done pending result UTI UCx Proteus Continue Ceftriaxone D2 Mild protein malnutrition Low albumin 1.6 To add supplement to diet Hypoglycemia secondary to Diabetes type 2 Discontinue Lantus 10 units for now SSI DVT PPX Hold Lovenox
--- NOTE | 2020-10-14 15:11 | PM.HEMONCPN ---
Medical Summary - Medical Summary Date of Service: 10/14/20 Chief complaint: Abdominal pain, anorexia Interval History Interval history: Patient is feeling a lot better today. She was able to eat. She tolerated bone marrow procedure quite well. She is not in any pain at this time. Review of Systems - Neurologic Reports weakness [facility] Medical History: Medical History (Last Reviewed 10/10/20 @ 11:51 by Jamari Sahu, PT) Diabetes mellitus type 2, controlled, without complications Essential hypertension Hypercalcemia Hyperlipidemia, unspecified Hypoglycemia unawareness associated with type 2 diabetes mellitus Obstructive sleep apnea Pancytopenia Subclinical hyperthyroidism Family History: Family History (Last Reviewed 10/09/20 @ 13:34 by Kayley Frost MD) Father No problems noted. Mother Heart disease Brother Atrial fibrillation Brother Atrial fibrillation Brother Atrial fibrillation Surgical History: Surgical History (Last Reviewed 10/10/20 @ 11:51 by Jamari Sahu PT) History of knee replacement History of left hip replacement Social History: Social History (Last Reviewed 10/09/20 @ 13:35 by Kayley Frost MD) Living Situation History: Household Members: Family Housing: House Alcohol History: Alcohol intake: never Alcohol History Details: Alcohol intake frequency: does not drink Advance Directives: Advance Directives Date on File: 10/09/20 Occupation Assessmet: service: No Current occupational status: retired Smoking status: Former smoker Oncology Screenings - ECOG Performance Status ECOG Performance Status: 2 Home Medications and Allergies Current Medications: Current Medications Generic Name Dose Route Start Last Admin Trade Name Freq PRN Reason Stop Dose Admin Acetaminophen 650 mg 10/09/20 15:19 10/14/20 07:42 Acetaminophen 325 Mg Tablet PO 650 mg Q6H PRN Administration Pain, Mild (Pain Scale 1-3) Allopurinol 300 mg 10/10/20 09:00 10/14/20 10:29 Allopurinol 300 Mg Tablet PO 300 mg DAILY DONAVAN Administration Amlodipine Besylate 5 mg 10/10/20 09:00 10/14/20 10:28 Amlodipine Besylate 5 Mg Tablet PO 5 mg DAILY DONAVAN Administration Protocol Aspirin 81 mg 10/10/20 09:00 10/14/20 10:29 Aspirin 81 Mg Tab.Chew PO 81 mg DAILY DONAVAN Administration Bisacodyl 10 mg 10/09/20 15:19 Bisacodyl 10 Mg Supp.Rect SC DAILY PRN constipation Dexamethasone Sodium Phosphate 40 mg 10/12/20 14:15 10/14/20 10:31 Dexamethasone Sod Phosphate/Pf 10 Mg/Ml Vial IVPUSH 10/15/20 09:01 40 mg DAILY DONAVAN Administration Docusate Sodium 100 mg 10/09/20 21:00 10/14/20 10:28 Docusate Sodium 100 Mg Capsule PO 100 mg BID DONAVAN Administration Enoxaparin Sodium 40 mg 10/09/20 18:00 10/13/20 19:00 Enoxaparin Sodium 40 Mg/0.4 Ml Syringe SUBCUT Not Given Q24H [facility] Ceftriaxone Sodium 1 gm/ 50 mls @ 100 mls/hr 10/13/20 09:00 10/14/20 11:17 Sodium Chloride IV Infused Q24H [facility] Infusion Insulin Human Lispro 0 unit 10/09/20 16:30 10/14/20 12:04 Insulin Lispro 100 Unit/Ml 3 Ml Vial SUBCUT 8 unit QIDACHS DONAVAN Administration Protocol Metoclopramide HCl 5 mg 10/14/20 11:30 10/14/20 12:05 Metoclopramide Hcl 5 Mg Tablet PO 10/15/20 11:31 5 mg TIDAC DONAVAN Administration Morphine Sulfate 2 mg 10/09/20 13:27 10/11/20 08:16 Morphine Sulfate 2 Mg/Ml Cartridge IVPUSH 2 mg Q4H PRN Administration Pain, Severe (Pain Scale 7-10) Omeprazole 20 mg 10/10/20 06:30 10/14/20 06:29 Omeprazole 20 Mg Capsule.Dr PO 20 mg DAILY@0630 DONAVAN Administration Ondansetron HCl 4 mg 10/09/20 15:19 10/11/20 08:16 Ondansetron Hcl 4 Mg/2 Ml Vial IVPUSH 4 mg Q8H PRN Administration Nausea and Vomiting Polyethylene Glycol 17 gm 10/14/20 10:50 10/14/20 12:05 Polyethylene Glycol 3350 17 Gm Powd.Pack PO 17 gm BID DONAVAN Administration Senna 8.6 mg 10/09/20 21:00 10/13/20 21:34 Sennosides 8.6 Mg Tablet PO 8.6 mg BEDTIME DONAVAN Administration Sodium Chloride 3 ml 10/09/20 16:00 10/14/20 08:03 0.9 % Sodium Chloride Flush 3 Ml Syringe [facility] Medication Instructions Recorded Confirmed Type allopurinol 300 mg tablet 300 mg PO DAILY 04/22/20 10/09/20 History aspirin 81 mg chewable tablet 81 mg PO DAILY 04/22/20 10/09/20 History docusate sodium 100 mg capsule 100 mg PO BID 04/22/20 10/09/20 History insulin aspart U-100 100 unit/mL 2 - 12 unit SUBCUT TID 04/22/20 10/09/20 History (3 mL) subcutaneous pen omeprazole 20 mg capsule,delayed 20 mg PO DAILY 04/22/20 10/09/20 History release amlodipine 5 mg tablet 5 mg PO DAILY 09/30/20 10/09/20 History insulin detemir U-100 100 unit/mL 20 unit SUBCUT BEDTIME ml 09/30/20 10/09/20 History (3 mL) subcutaneous pen polyethylene glycol 3350 [Miralax] 17 g PO DAILY 10/06/20 10/09/20 History bisacodyl 1 supp SC DAILY PRN 10/09/20 10/09/20 History sennosides [senna] 8.6 mg PO BEDTIME 10/09/20 10/09/20 History Allergies Allergy/AdvReac Type Severity Reaction Status Date / Time codeine [CODEINE] Allergy Intermediate NAUSEA & Verified 07/26/20 06:57 VOMITING, vomiting lisinopril [LISINOPRIL] Allergy Intermediate COUGH, Verified 07/26/20 06:57 Coughing sulfamethoxazole Allergy Intermediate RASH Verified 07/26/20 06:57 [From BACTRIM] Exam Vital signs: Vital Signs Temp 96.7 F L 10/14/20 11:46 Pulse 81 10/14/20 11:46 Resp 18 10/14/20 11:46 BP 111/67 10/14/20 11:46 Pulse Ox 98 10/14/20 11:46 Intake & Output 10/13/20 10/14/20 10/14/20 18:59 06:59 18:59 Intake Total 1711.667 / 3136.667 1425 / 3136.667 1620 / 1620 Output Total 1550 / 1550 400 / 400 Balance 1711.667 / 1586.667 -125 / 9081.285 8868 / 1220 Urine Output (Average ml/kg/hr) 1.29 0.33 Intake: Intake, Oral Amount 560 / 560 720 / 720 Intake, IV Amount 1711.667 / 2576.667 865 / 2576.667 900 / 900 cefTRIAXone sodium 1 gm In 0.9 50 / 50 50 / 50 % Sodium Chloride 50 ml @ 100 mls/hr IV Q24H [facility] Rx#: [id number] 0.9 % Sodium Chloride 1,000 ml 1661.667 / 2526.667 865 / 2526.667 850 / 850 @ 100 mls/hr IVCONT .Q10H [facility] Rx#:[id number] Output: Output, Urine Amount 750 / 750 400 / 400 Output, Urine Amount (Catheter) 800 / 800 Female External 800 / 800 Other: Meal Refused No NPO Yes No Breakfast % Eaten 100% Lunch % Eaten 100% Dinner % Eaten 50% Evening Snack % Eaten 100 Number of Bowel Movements 0 Urine purewhick purewick Urine Color Yellow Yellow Weight 100.244 kg Weight 100.244 kg Body Mass Index 36.8 - Constitutional Present: no acute distress - Routine HEENT Exam Head: Present: normal inspection - Routine Respiratory Exam Absent: accessory muscle use - Routine Cardiovascular Exam Cardiovascular: Present: S1, S2 Data - Labs CBC & Chem 7: 10/14/20 06:07 10/14/20 06:07 Labs: 10/09/20 08:43 0.9 % Sodium Chloride [Ns] 500 ml IV 500 mls/hr ondansetron HCL [Zofran] 4 mg IVPUSH ONCE ONE 10/09/20 08:44 ECG 12 lead EKG Stat EKG Documentation DIRECTED 10/09/20 08:48 Consult Rx Perform Med Rec 1 each MISCELLANE ONCE STA Morphine Sulfate 2 mg IVPUSH ONCE ONE 10/09/20 08:55 Glucose, Whole Blood Routine 10/09/20 09:19 ondansetron ODT [Zofran ODT] 4 mg TRANSLINGU ONCE ONE 10/09/20 09:38 Dextrose 50 % [D50] 12.5 gm IVPUSH ONCE ONE 10/09/20 10:03 COVID-19 ID NOW (Good) Stat Complete Blood Count Auto Diff Stat Comprehensive Met. Panel Stat Lipase Stat Partial Thromboplastin Time Stat Prothrombin Time INR Stat SLIDE REVIEW Stat Triglycerides Stat 10/09/20 11:09 Glucose, Whole Blood Routine 10/09/20 13:20 Transfer Order Routine 10/09/20 13:31 Add Laboratory Test Stat 10/09/20 15:19 NPO Diet 0.9 % Sodium Chloride [Ns] 1,000 ml IVCONT 100 mls/hr 10/09/20 16:05 Glucose, Whole Blood Routine 10/09/20 20:19 Glucose, Whole Blood Routine 10/09/20 20:27 Dextrose 50 % [D50] 25 gm IVPUSH ONCE ONE 10/09/20 21:00 Insulin Glargine,Hum.rec.anlog [Lantus] 10 unit SUBCUT BEDTIME 10/09/20 23:04 Glucose, Whole Blood Routine 10/10/20 07:23 Glucose, Whole Blood Routine 10/10/20 11:38 Clear Liquid Diet 10/10/20 11:44 Glucose, Whole Blood Routine 10/10/20 12:03 Basic Metabolic Panel DAILY@0600 Complete Blood Count Auto Diff DAILY@0600 Liver Panel DAILY@0600 SLIDE REVIEW Routine 10/10/20 16:25 Glucose, Whole Blood Routine 10/10/20 20:22 Glucose, Whole Blood Routine 10/11/20 06:42 Basic Metabolic Panel DAILY@0600 IRON PROFILE Routine Liver Panel Routine 10/11/20 07:57 Glucose, Whole Blood Routine 10/11/20 08:30 Add Laboratory Test Urgent 10/11/20 10:51 Full Liquid Diet 10/11/20 11:25 Glucose, Whole Blood Routine 10/11/20 11:30 Metoclopramide HCl [Reglan] 5 mg PO TIDAC 10/11/20 16:18 Glucose, Whole Blood Routine 10/11/20 20:16 Glucose, Whole Blood Routine 10/11/20 21:35 Dextrose 50 % [D50] 12.5 gm IVPUSH ONCE ONE 10/12/20 06:42 Vitamin B12 and Folate Routine 10/12/20 07:36 Glucose, Whole Blood Routine 10/12/20 11:16 Glucose, Whole Blood Routine 10/12/20 11:30 Metoclopramide HCl [Reglan] 10 mg PO TIDAC 10/12/20 12:15 dexAMETHasone sod phosphate [Decadron] 40 mg IVPUSH DAILY 10/12/20 14:40 UA ClnCatch+Micro w/rflx Cult Stat 10/12/20 14:52 Add Laboratory Test Routine 10/12/20 15:10 Urine Culture Routine 10/12/20 16:50 Glucose, Whole Blood Routine 10/12/20 20:44 Glucose, Whole Blood Routine 10/13/20 05:57 Basic Metabolic Panel DAILY@0600 Liver Panel Routine 10/13/20 07:48 Glucose, Whole Blood Routine 10/13/20 08:55 cefTRIAXone sodium [Rocephin] 1 gm .ROUTE .STK-MED ONE 10/13/20 11:23 Glucose, Whole Blood Routine 10/13/20 13:17 Lidocaine HCl 1 % MPF [Xylocaine 1 % MPF] 5 ml .ROUTE .STK-MED ONE Midazolam HCl/PF [Versed] 2 mg .ROUTE .STK-MED ONE fentaNYL citrate/PF [Sublimaze] 50 mcg .ROUTE .STK-MED ONE 10/13/20 13:18 Naloxone HCl [Narcan] 0.4 mg .ROUTE .STK-MED ONE flumazeniL [Romazicon] 0.05 mg .ROUTE .STK-MED ONE 10/13/20 14:24 Heparin Sodium,Porcine Flush 500 unit IVFLUSH .STK-MED ONE 10/13/20 15:15 Bone Marrow Routine 10/13/20 15:32 Heparin Sodium,Porcine Flush 500 unit 0.9 % Sodium Chloride Flush [NS Flush] 5 ml IVFLUSH ONCE 10/13/20 15:33 Lidocaine HCl 1 % MPF [Xylocaine 1 % MPF] 10 ml SUBCUT ONCE ONE 10/13/20 16:27 Glucose, Whole Blood Routine 10/13/20 18:42 Glucose, Whole Blood Routine 10/14/20 06:07 Basic Metabolic Panel DAILY@0600 Complete Blood Count no Diff DAILY@0600 10/14/20 07:51 Glucose, Whole Blood Routine 10/14/20 09:56 cefTRIAXone sodium [Rocephin] 1 gm .ROUTE .STK-MED ONE 10/14/20 11:46 Glucose, Whole Blood Routine Laboratory Last Values WBC 1.9 X10*3/uL (4.8-10.8) L 10/14/20 06:07 RBC 2.68 X10*6/uL (4.20-5.50) L 10/14/20 06:07 Hgb 8.4 g/dl (12.0-16.0) L 10/14/20 06:07 Hct 26.1 % (37-47) L 10/14/20 06:07 MCV 97.4 fL (80-98) 10/14/20 06:07 MCH 31.3 pg (27.0-33.0) 10/14/20 06:07 MCHC 32.2 g/dl (31.0-35.0) 10/14/20 06:07 RDW 15.9 % (11.0-16.0) 10/14/20 06:07 Plt Count 74 X10*3/uL (160-400) L 10/14/20 06:07 MPV 11.1 fL (9.4-12.3) 10/14/20 06:07 Immature Gran % (Auto) 0.7 % (0.0-0.4) H 10/10/20 12:03 Neut % (Auto) 54.8 % (45-73) 10/10/20 12:03 Lymph % (Auto) 37.9 % (20-40) 10/10/20 12:03 Hart % (Auto) 5.2 % (2-11) 10/10/20 12:03 Eos % (Auto) 0.7 % (0-4) 10/10/20 12:03 Baso % (Auto) 0.7 % (0-2) 10/10/20 12:03 Lymph # (Auto) 0.6 X10*3/uL (1.2-4.9) L 10/10/20 12:03 Hart # (Auto) 0.1 X10*3/uL (0.1-1.2) 10/10/20 12:03 Eos # (Auto) 0.0 X10*3/uL (0.0-0.4) 10/10/20 12:03 Baso # (Auto) 0.0 X10*3/uL (0.0-0.2) 10/10/20 12:03 Abs Immat Gran (auto) 0.01 X10*3/uL (0.00-0.03) 10/10/20 12:03 Absolute Neuts (auto) 0.8 X10*3/uL (2.0-8.3) L 10/10/20 12:03 Absolute Nucleated RBC 0.000 X10*3/uL (0.0-0.012) 10/14/20 06:07 Nucleated RBC % (auto) 0.0 /100WBC (0.0-0.2) 10/14/20 06:07 Smear Tech's Comments VERIFIED 10/10/20 12:03 PT 15.1 SEC (10.8-13.0) H 10/09/20 10:03 INR 1.3 (0.9-1.1) H 10/09/20 10:03 APTT 26.8 SEC (24.1-38.0) 10/09/20 10:03 Sodium 136 mmol/L (135-145) 10/14/20 06:07 Potassium 3.6 mmol/L (3.3-5.1) 10/14/20 06:07 Chloride 112 mmol/L (96-108) H 10/14/20 06:07 Carbon Dioxide 18 mmol/L (22-29) L 10/14/20 06:07 Anion Gap 10 (12-20) L 10/14/20 06:07 BUN 23 mg/dL (9-16) H D 10/14/20 06:07 Creatinine 1.08 mg/dL (0.5-1.4) 10/14/20 06:07 Estim Creat Clear Calc 53.6 10/14/20 06:07 Estimated GFR 50 10/14/20 06:07 POC Glucose 311 mg/dL (60-115) H 10/14/20 11:46 Random Glucose 279 mg/dL (60-115) H D 10/14/20 06:07 Calcium 9.3 mg/dL (8.4-10.2) D 10/14/20 06:07 Iron 66 mcg/dL (30-160) 10/11/20 06:42 TIBC 101 mcg/dL (228-428) L 10/11/20 06:42 % Saturation 65 % (15-50) H 10/11/20 06:42 Unsat Iron Binding 35 ug/dL 10/11/20 06:42 Total Bilirubin 0.8 mg/dL (0.0-1.0) 10/13/20 05:57 Direct Bilirubin 0.4 mg/dL (0.0-0.5) 10/13/20 05:57 AST 20 U/L (5-31) 10/13/20 05:57 ALT 14 U/L (0-31) 10/13/20 05:57 Alkaline Phosphatase 39 U/L (39-117) 10/13/20 05:57 Total Protein 6.4 g/dL (6.5-8.0) L 10/13/20 05:57 Albumin 1.6 g/dL (3.5-5.0) L 10/13/20 05:57 Triglycerides 62 mg/dL 10/09/20 10:03 Lipase 86 U/L (8-78) H 10/09/20 10:03 Vitamin B12 401 pg/mL (200-900) 10/12/20 06:42 Folate 5.6 ng/mL (> or = 4.0) 10/12/20 06:42 Urine Color YELLOW 10/12/20 14:40 Urine Appearance HAZY 10/12/20 14:40 Urine pH 6.0 (5.0-8.0) 10/12/20 14:40 Ur Specific [place] >= 1.030 (1.005-1.025) H 10/12/20 14:40 Urine Protein 1+ MG/DL (NEG-TRACE) H 10/12/20 14:40 Urine Glucose (UA) NEG MG/DL (NEG) 10/12/20 14:40 Urine Ketones 15 MG/DL (NEG) 10/12/20 14:40 Urine Blood 1+ (NEG) H 10/12/20 14:40 Urine Nitrite NEG (NEG) 10/12/20 14:40 Ur Leukocyte Esterase 2+ (NEG) H 10/12/20 14:40 Urine RBC 1-4 /HPF (0) 10/12/20 14:40 Urine WBC 15-29 /HPF (0-4) H 10/12/20 14:40 Ur Squamous Epith Cells 2+ /LPF 10/12/20 14:40 Calcium Oxalate Crystal 3+ /LPF 10/12/20 14:40 Urine Bacteria 1+ /LPF 10/12/20 14:40 COVID-19 (RYAN) Negative (Negative) 10/09/20 10:03 COVID-19 Clin Com See Note 10/09/20 10:03 BM Chromosome Analysis Cancelled 10/13/20 08:54 BCR/abl Interp & Reprt Cancelled 10/13/20 15:15 Progress Note: A/P (1) Multiple myeloma Status: Acute Assessment and plan: 1. This is a 75-year-old woman with probable IgG kappa light chain multiple myeloma. Serum protein electrophoresis and immunofixation revealed IgG kappa monoclonal band with elevated free kappa light chains. Abnormal free Light chain ratio of 586, beta 2 microglobulin severely elevated at 22.59. IgG elevated over 2.2 g with suppressed IgA and IgM levels. She is developing mild renal insufficiency and she has hypercalcemia. She has pancytopenia. Clinical picture is consistent with advanced multiple myeloma with light chain disease. She was admitted for pancreatitis related to hypercalcemia. She was started on pulse Decadron 40 mg IV daily for 4 days. She received her 3rd dose today. She is feeling much better, she is able to eat now. Her abdominal pain has resolved. CT-guided bone marrow aspiration/biopsy was performed 10/13/2020. Results awaited. I have discussed all the above with the patient. She has a follow-up with Dr. Raman next week. - Time Spent With Patient Total time spent is greater than 50% in coordination of care (as documented) at patient's floor/unit and/or counseling patient: 15 - 24 minutes
[2020-10-14 16:39] LABS: Glucose, Whole Blood 326 mg/dL (60-115)
[2020-10-14] MEDS: 0.9 % Sodium Chloride Flush 3 ML SYRINGE IVFLUSH ×2 (16:43→22:30)
[2020-10-14] MEDS: Enoxaparin Sodium 40 MG/0.4 ML SYRINGE SUBCUT (18:06)
[2020-10-14 20:17] LABS: Glucose, Whole Blood 376 mg/dL (60-115)
[2020-10-14] MEDS: Sennosides 8.6 MG TABLET PO (20:20)
--- NOTE | 2020-10-14 20:27 | MHC.PIE ---
p; poc 376. note; pt given 10u humalog per sliding scale i; dr figueredo notified; no extra coverage e; will cont to monyanitor
[2020-10-15] VITALS: BP 130/75; PULSE 78; RESP 18; TEMP 36.2; O2SAT 97
[2020-10-15 03:40] VITALS: BP 141/75; PULSE 71; RESP 18; TEMP 36; O2SAT 98
[2020-10-15] MEDS: Omeprazole 20 MG CAPSULE.DR PO (06:23)
[2020-10-15 07:23] VITALS: BP 125/85; PULSE 62; RESP 19; TEMP 36.1; O2SAT 95
[2020-10-15] MEDS: 0.9 % Sodium Chloride Flush 3 ML SYRINGE IVFLUSH (07:36)
[2020-10-15] MEDS: Insulin Lispro 100 UNIT/ML 3 ML VIAL SUBCUT ×2 (07:36→11:42)
[2020-10-15] MEDS: Metoclopramide HCl 5 MG TABLET PO ×2 (07:36→11:42)
[2020-10-15 08:17] LABS: Glucose, Whole Blood 300 mg/dL (60-115)
[2020-10-15 08:40] VITALS: BP 125/85; PULSE 62
[2020-10-15] MEDS: amLODIPine Besylate 5 MG TABLET PO (08:40)
[2020-10-15] MEDS: Docusate Sodium 100 MG CAPSULE PO (08:40)
[2020-10-15] MEDS: allopurinoL 300 MG TABLET PO (08:40)
[2020-10-15] MEDS: Aspirin 81 MG TAB.CHEW PO (08:40)
[2020-10-15] MEDS: cefTRIAXone sodium 1 GM in 0.9 % Sodium Chloride 50 ML IV (08:41)
[2020-10-15] MEDS: polyethylene glycoL 3350 17 GM POWD.PACK PO (08:41)
[2020-10-15 09:42] LABS: Hematocrit 27.5 % (37-47); Mean Corpuscular HGB Conc 32.7 g/dl (31.0-35.0); Mean Corpuscular Hemoglobin 31.7 pg (27.0-33.0); Mean Corpuscular Volume 96.8 fL (80-98); Mean Platelet Volume 10.2 fL (9.4-12.3); Red Blood Count 2.84 X10*6/uL (4.20-5.50); Red Cell Distribution Width 15.9 % (11.0-16.0)
[2020-10-15 09:45] LABS: Platelet Count 69 X10*3/uL (160-400); White Blood Count 1.7 X10*3/uL (4.8-10.8)
[2020-10-15 11:16] LABS: Glucose, Whole Blood 353 mg/dL (60-115)
--- NOTE | 2020-10-15 11:45 | MHC.CLN ---
F/U PO INTAKE IMPROVED 100% X 3 MEALS 10/14 DIET ADVANCED TO 2000DM BLAND-APPROPRIATE PT RECEIVING ENSURE TID TO INCREASE KCALS MONITOR BS AND PO INTAKE FOLLOWING
--- NOTE | 2020-10-15 14:13 | MHC.CM.PN ---
Addendum entered by Christi Winters 10/15/20 16:14: discussed further with patient transportation home, i offered her ambulance transfer and she declined she did not want to get stuck with a bill, and the chair van they would not be able to help her up 5 stairs . she reported that her daughter and son in law will help her get from hospital wheelchair into the car, at home she will have her son in lawa nd adult grandson and two other men to assist her , when getting out of the care she will grab on to her walker than use the transporter chair to get into the hopuse with the assistqance of these four adult men, her family has been doing iot this way to get her to hospitsc and to medical appointments. Addendum entered by Christi Winters 10/15/20 15:05: DISCUSSED WITH HOSPITALIST VIA MULTIPLE DISCIPLINARY ROUNDS AND VIA TIGER TEXT REQUEST FOR HOME VNA FOR NURSING AND HOME PHYSICAL THERAPY [facility] N[facility] AND HOME PHYSICAL THERAPY (PT REPORTED THAT SHE WAS DISCHARGED FROM [facility] THIS YEAR AFTER HAVING COVID INFECTION AND COMPLICATIONS, AND NOTES THAT SHE HAS NEVER GOTTEN BACK TO HER BASE LINE NOR DOES SHE FELL RIGHT, REPORT LOSING 30 LBS WITH INABILITY TO TOLERATE AMANY FOODS WITH ASSOCIATED NAUSEA AND EMESIS) SHE LIVES IN A TWO STORY HOME (MOSTLY STAYS DOWNSTAIRS, HAS LIVES WITH DAUGHTER ,SON IN LAW AND GRANDOSN HER DAUGHTER HELPS HER WITH ADLS AND SHOPPIN SHE HAS A SHOWER CHAIR, EASY ACESS TUB BARS IN THE BATHROOM HOPITLA BED WITH RAILS AND ROLATER WALKER WELL 2 WHEELED WALKER Original Note: NURSE BUSINESS OFFICE DIRECTOR NOTE ELECTRONIC MEDICAL RECORD REVIEWED ALONG WITH CASE DISCUSSED WITH STAFF NURSE AND ON MULTIPLE DISCIPLINARY ROUNDS, MET WITH PATIENT SHE IS ANTICIPATING TO BE DISCHARGED TODAY OR TOMORROW , SHE HAS MET WITH LABORER [employer]ING /ONCOLOGIST THIS AM AND HER BIOPSY RESULTS ARE STILL PENDING .SHE WILL BE FINISHING UP HER LAST DOSE OF MEDICINE TODAY DISCHARGE PLAN HOME WITH [facility] FOR N[facility]SING AND ASSESS FOR HOME PHYSICAL THERAPY DR SCHAFFER PATIENT TO CALL FOR POST HOSPITAL DISCHARGE FOLLOW UP HEMATOLOGY/ONCOLOGY CONSULT FOLLOW UP PER DISCHARGE INSTRUCTIONS TRANSPORTATION FAMILY PCP
--- NOTE | 2020-10-15 14:42 | PM.DS ---
DS: Providers Provider Date of Service: 11/14/20 Date of admission: 10/09/20 13:27 Primary care physician: Iveth Cowart MD Consults: 10/09/20 13:27 Consult to Gastroenterology Routine Consulting Provider: Naeem Olivo Reason for consultation: Recurrent Pancreatitis for your kind eval. 10/09/20 17:47 Consult Respiratory Therapy Routine Reason for consultation: Pt has sleep apnea, to bring CPAP machine tomorrow 10/12/20 07:56 Consult to Hematology / Oncology Routine Consulting Provider: Sasha Alicia Reason for consultation: Pancreatitis 2/2 likely Hypercalcemia, for HyperCa management DS: Diagnosis Discharge Diagnosis (1) Multiple myeloma: Status: Acute DS: Medications Discharge Medications Home Medications: Home Medications Medication Instructions Recorded Confirmed allopurinol 300 mg tablet 300 mg PO DAILY 04/22/20 10/09/20 aspirin 81 mg chewable tablet 81 mg PO DAILY 04/22/20 10/09/20 docusate sodium 100 mg capsule 100 mg PO BID 04/22/20 10/09/20 insulin aspart U-100 100 unit/mL 2 - 12 unit SUBCUT TID 04/22/20 10/09/20 (3 mL) subcutaneous pen omeprazole 20 mg capsule,delayed 20 mg PO DAILY 04/22/20 10/09/20 release amlodipine 5 mg tablet 5 mg PO DAILY 09/30/20 10/09/20 insulin detemir U-100 100 unit/mL 20 unit SUBCUT BEDTIME ml 09/30/20 10/09/20 (3 mL) subcutaneous pen polyethylene glycol 3350 [Miralax] 17 g PO DAILY 10/06/20 10/09/20 bisacodyl 1 supp [place] DAILY PRN 10/09/20 10/09/20 sennosides [senna] 8.6 mg PO BEDTIME 10/09/20 10/09/20 DS: Summary Hospital Course Hospital Course: Chief Complaint: N\V, Abdominal pain A 75 years old lady with PMH of diabetes, multiple myeloma who presents to the hospital complaining of abdominal pain, nausea and vomiting for the last week. The patient was discharged from [facility] a earlier this year for COVID-19 infection for 22 days complicated by acute pancreatitis. Further studies were negative for which immune, stone at that point. Today presenting to the hospital with worsening nausea and vomiting for almost 1 week. She reports that she did not feel normal since the COVID-19 infection as she ended up having G-tube for a while which was later removed. She lost some weight over the last few months by almost 40 lb. She feels tired and lethargic. CT scan done in the emergency showing possible acute pancreatitis with mildly elevated pancreatic enzymes. Admitted for further evaluation and treatment. Hospial course: Acute pancreatitis, manifested by elevated lipasse, CT finding, high calcium--thought be induced by hypercalcemia. Patient was seen by GI and managed conservatively with full recovery clinically and is tolerating diet now. Moderate Hypercalcemia-- Secondary to multiple myeloma. Treated with IVF and High dose steroid (decadron 40 IV) daily for 4 days. Will transition to PO at discharge Constipation--due to hypercalcmeia--Treted with bowel regimen, colace, Mirilax, Senna Pancytopenia Secondary to Multiple myeloma bone [place] biopsy done pending result--Follow up with Dr. Alicia UTI UCx Proteus Continue Ceftriaxone D3, will change to PO Ceftin for 7 days Mild protein malnutrition Low albumin 1.6 Increse in diet Hypoglycemia secondary to Diabetes type 2 Discontinue Lantus 10 units for now, but sugars are now very high due sterid and should resume this upon discharge SSI DVT PPX Hold Lovenox Time Spent with Patient Time attestation: Total time spent providing and/or coordinating discharge services: Discharge coordination time: Greater than 30 minutes Physical Exam Vital Signs: Vital Signs: Last Vital Signs Temp 96.9 F 10/15/20 07:23 Pulse 62 10/15/20 08:40 Resp 19 10/15/20 07:23 BP 125/85 10/15/20 08:40 Pulse Ox 95 10/15/20 07:23 Body Mass Index 36.8 General: AO X 3, no acute distress Resp: CTA bilateral CVS: S1,S2,RRR GI: +BS, NT, no distention Skin: No rash Neuro: motor grossly intact Psych: appropriate affect DS: Data Data Completed and Pending Pending studies at discharge: Pending at discharge 10/13/20 15:21 Surgical [PTH] Routine Labs on day of discharge: Laboratory Results - last 24 hr 10/14/20 10/14/20 10/15/20 16:34 20:12 07:25 WBC RBC Hgb Hct MCV MCH MCHC RDW Plt Count MPV Absolute Nucleated RBC Nucleated RBC % (auto) POC Glucose 326 H 376 H* 300 H Blood Type Antibody Screen 10/15/20 10/15/20 10/15/20 09:20 09:20 11:08 WBC 1.7 L RBC 2.84 L Hgb 9.0 L Hct 27.5 L MCV 96.8 MCH 31.7 MCHC 32.7 RDW 15.9 Plt Count 69 L MPV 10.2 Absolute Nucleated RBC 0.000 Nucleated RBC % (auto) 0.0 POC Glucose 353 H* Blood Type O Positive Antibody Screen NEGATIVE Discharge Plan Discharge Anticipated Discharge Date/Time: 10/15/20 15:10 Patient Disposition: Home Health Service Discharge Diagnosis: Multiple myeloma Referrals: [facility] [Outside] (DISCHARGED HOME WITH REFERRAL TO THE [facility] VISITING [facility]URSE FOR DIAGNOSIS SIGN/SYMPTOM MANAGEMENT , DEVELOPMENT OF ACTION PLAN OF WHEN TO CALL , WHAT TO CALL FOR AND WHOM TO CALL , MEDICATION RECONCILATION HOME PHYSICAL THEAPRY PCP PATIENT TO CALL FOR POST HOSPITAL DISCHARGE FOLLOW UP TRANSPORTATION FAMILY SELF RESUMPTION OF HER [facility] DME FOR HER CPAP) Iveth Cowart MD [Primary Care Provider] - Discharge Medications: Continued polyethylene glycol 3350 [Miralax] 17 gram/dose Powder 17 g PO DAILY PRN (Reason: Constipation) RF: 0 bisacodyl 10 mg suppository 1 supp IL DAILY PRN (Reason: constipation) RF: 0 sennosides [senna] 8.6 mg Tablet 8.6 mg PO BEDTIME PRN (Reason: Constipation) RF: 0 aspirin 81 mg tablet,chewable 81 mg PO DAILY RF: 0 docusate sodium 100 mg capsule 100 mg PO BID RF: 0 insulin aspart U-100 100 unit/mL (3 mL) insulin pen 2 - 12 unit subcut TID RF: 0 omeprazole 20 mg capsule,delayed release(DR/EC) 20 mg PO DAILY RF: 0 insulin detemir U-100 100 unit/mL (3 mL) insulin pen 20 unit subcut BEDTIME RF: 0 No Action ondansetron HCl [Zofran] 4 mg tablet 4 mg PO Q8H PRN (Reason: nausea and vomiting) Qty: 10 RF: 0 ondansetron HCl [Zofran] 4 mg Tablet 8 mg PO Q8H PRN (Reason: Nausea And Vomiting) Qty: 50 RF: 4 dexamethasone [Decadron] 4 mg Tablet 20 mg PO 2XW Qty: 100 RF: 4 acyclovir 400 mg Tablet 400 mg PO DAILY Qty: 90 RF: 4 tramadol 50 mg tablet 1 tab PO Q12H PRN (Reason: pain) RF: 0 Revlimid 15 mg Capsule 15 mg PO DAILY Qty: 21 RF: 11 atovaquone [Mepron] 750 mg/5 mL Suspension 1,500 mg PO DAILY Qty: 300 RF: 6 metoclopramide HCl [Reglan] 5 mg tablet 5 mg PO TIDAC Qty: 30 RF: 0 furosemide 20 mg tablet 20 mg PO DAILY RF: 0 Discharge Orders: Discharge Order (Routine); Ordered 10/15/20 Ordered By: Jeanmarie Concepcion Diet: diabetic diet Activity on Discharge: As tolerated Stand Alone Forms: Patient Portal Discharge page Care Plan Goals: prevent rehospitalization Health Concerns: Multiple myeloma Plan of Treatment: Follow up with Dr. Alicia next week Assessment: Multiple myeloma Discharge Date/Time: 10/15/20 16:30
[2020-10-15 15:41] VITALS: BP 114/60; PULSE 70; RESP 16; TEMP 26.1; O2SAT 97
== END 2020-10-15 16:30 | disposition home health service (06) | DRG 691 ==
LOC: HO.ED 13:05 → HO.EDOVER 13:35 → HO.S3 16:01
PROVIDERS: Internal Medicine; Nurse Practitioner Primary Care; Admitting Provider Student in an Organized Health Care Education/Training Program; Emergency Provider Emergency Medicine; PCP Internal Medicine; Visit Provider Internal Medicine
DX: C90.00 Multiple myeloma not having achieved remission (principal); D61.818 Other pancytopenia; E44.1 Mild protein-calorie malnutrition; K85.90 Acute pancreatitis without necrosis or infection, unspecified; E11.649 Type 2 diabetes mellitus with hypoglycemia without coma; E78.5 Hyperlipidemia, unspecified; Z86.16 Personal history of COVID-19; G47.33 Obstructive sleep apnea (adult) (pediatric); E83.52 Hypercalcemia; N39.0 Urinary tract infection, site not specified; Z20.822 Contact with and (suspected) exposure to COVID-19; B96.4 Proteus (mirabilis) (morganii) as the cause of diseases classified elsewhere; Z96.642 Presence of left artificial hip joint; Z88.2 Allergy status to sulfonamides; Z68.36 Body mass index [BMI] 36.0-36.9, adult; Z88.5 Allergy status to narcotic agent; Z79.4 Long term (current) use of insulin; Z79.82 Long term (current) use of aspirin; Z79.899 Other long term (current) drug therapy
CPT/HCPCS: 36415; 38221; 38222; 80048; 80053; 80076; 81001; 82607; 82746; 82784; 82947; 83540; 83690; 84478; 85025; 85027; 85097; 85610; 85730; 86850; 86900; 87086; 87088; 87186; 87635; 88185; 88237; 88264; 88280; 88305; 88311; 88313; 88341; 88342; 88374; 93005; 96374; 96375; 97110; 97116; 97162; 97530; 99152; 99284; 99285; J0696; J1100; J1642; J1650; J2270; J2405

== ENCOUNTER 2020-10-25 08:59 | Emergency (ER) | payer OTHER, SELFPAY ==
[2020-10-25 10:14] VITALS: BP 116/55; PULSE 90; RESP 18; TEMP 36.8; O2SAT 99; BMI 37.4
[2020-10-25 10:18] VITALS: RESP 16
[2020-10-25 11:24] LABS: Hematocrit 28.8 % (37-47); Hemoglobin 9.4 g/dl (12.0-16.0); Imm Gran Abs Auto 0.01 X10*3/uL (0.00-0.03); Imm Gran Pct Auto 0.4 % (0.0-0.4); Lymphocytes Absolute Auto 0.4 X10*3/uL (1.2-4.9); Lymphocytes Percent Auto 14.5 % (20-40); MANUAL DIFF FLAG SCAN; Mean Corpuscular HGB Conc 32.6 g/dl (31.0-35.0); Mean Corpuscular Hemoglobin 31.9 pg (27.0-33.0); Mean Corpuscular Volume 97.6 fL (80-98); Mean Platelet Volume 10.1 fL (9.4-12.3); Monocytes Absolute Auto 0.1 X10*3/uL (0.1-1.2); Neutrophils Absolute Auto 1.9 X10*3/uL (2.0-8.3); Neutrophils Percent Auto 80.1 % (45-73); Red Blood Count 2.95 X10*6/uL (4.20-5.50); Red Cell Distribution Width 17.6 % (11.0-16.0); SCAN SMEAR FLAG 1
[2020-10-25 11:34] LABS: Platelet Count 72 X10*3/uL (160-400); White Blood Count 2.4 X10*3/uL (4.8-10.8)
[2020-10-25] MEDS: ondansetron HCL 4 MG/2 ML VIAL IVPUSH (11:36)
[2020-10-25 11:43] LABS: SLIDE REVIEW VERIFIED
[2020-10-25 11:50] LABS: Alanine Aminotransferase 26 U/L (0-31); Alkaline Phosphatase 50 U/L (39-117); Anion Gap 12 (12-20); Aspartate Amino Transferase 18 U/L (5-31); Bilirubin Direct 0.5 mg/dL (0.0-0.5); Blood Urea Nitrogen 13 mg/dL (9-16); Calcium 7.4 mg/dL (8.4-10.2); Carbon Dioxide 22 mmol/L (22-29); Chloride 109 mmol/L (96-108); Creatinine Clr Calc Pharmacy 64.9; Estimated Glomerular Filt Rate > 60; Glucose Random 164 mg/dL (60-115); Lipase 35 U/L (8-78); Sodium 140 mmol/L (135-145); Total Protein 6.1 g/dL (6.5-8.0)
[2020-10-25 12:06] LABS: Albumin Level 1.9 g/dL (3.5-5.0); Magnesium 1.2 mg/dL (1.6-2.6)
--- NOTE | 2020-10-25 12:06 | ED.NAVMDI ---
HPI - Nausea/Vomiting/Diarrhea General Chief complaint: Nausea/Vomiting/Diarrhea Stated complaint: effusion monday - still not feeling well Time Seen by Provider: 10/25/20 10:21 Source: patient Mode of arrival: ambulatory History of Present Illness HPI Narrative: 75-year-old female with a past medical history of diabetes, hypertension, hypercalcemia, hyperlipidemia, RADHA, pancytopenia, hyperthyroid, multiple myeloma recently started on chemotherapy person patient Monday10/23/2020, presenting to the ED complaining of persistent nausea, vomiting, and diarrhea, with inability to tolerate p.o. since yesterday. Reports low-grade fever yesterday 100.5 and 99 today. Denies abdominal pain, bloody stools/black stool, CP/SOB, dysuria/hematuria MD elicited complaint: nausea, vomiting and diarrhea Related Data Home Medications Medication Instructions Recorded Confirmed allopurinol 300 mg tablet 300 mg PO DAILY 04/22/20 10/09/20 aspirin 81 mg chewable tablet 81 mg PO DAILY 04/22/20 10/09/20 docusate sodium 100 mg capsule 100 mg PO BID 04/22/20 10/09/20 insulin aspart U-100 100 unit/mL 2 - 12 unit SUBCUT TID 04/22/20 10/09/20 (3 mL) subcutaneous pen omeprazole 20 mg capsule,delayed 20 mg PO DAILY 04/22/20 10/09/20 release amlodipine 5 mg tablet 5 mg PO DAILY 09/30/20 10/09/20 insulin detemir U-100 100 unit/mL 20 unit SUBCUT BEDTIME ml 09/30/20 10/09/20 (3 mL) subcutaneous pen polyethylene glycol 3350 [Miralax] 17 g PO DAILY 10/06/20 10/09/20 bisacodyl 1 supp OH DAILY PRN 10/09/20 10/20/20 sennosides [senna] 8.6 mg PO BEDTIME 10/09/20 10/20/20 tramadol 1 tab PO Q12H PRN 10/20/20 10/20/20 Previous Rx's Medication Instructions Recorded cefuroxime axetil 250 mg PO BID 7 Days #14 tab 10/25/20 ondansetron HCl [Zofran] 4 mg PO Q8H PRN #10 tab 10/25/20 Allergies Allergy/AdvReac Type Severity Reaction Status Date / Time codeine [CODEINE] Allergy Intermediate NAUSEA & Verified 10/25/20 10:17 VOMITING, vomiting lisinopril [LISINOPRIL] Allergy Intermediate COUGH, Verified 10/25/20 10:17 Coughing sulfamethoxazole Allergy Intermediate RASH Verified 10/25/20 10:17 [From BACTRIM] Review of Systems Review of Systems: Constitutional: + Fever, No Chills, + Malaise, + Fatigue Cardiovascular: No Chest Pain, No SOB Respiratory: No Cough Gastrointestinal: + Nausea, + Vomiting, + Diarrhea, No Constipation, + Abdominal pain, No Hematochezia, No Melena Genitourinary: No Dysuria, No Urinary Frequency, No Hematuria, No Flank Pain Musculoskeletal: +chronic knee pain, No Myalgias, No Joint Swelling Skin: No Skin Lesions, No rash Neuro: No Weakness, No Numbness, No Headache Yes all other systems are reviewed and are negative [facility], [facility] Past Medical History Attestation statement: The following information was validated with the patient. Medical History Diabetes mellitus type 2, controlled, without complications Essential hypertension Hypercalcemia Hyperlipidemia, unspecified Hypoglycemia unawareness associated with type 2 diabetes mellitus Obstructive sleep apnea Pancytopenia Subclinical hyperthyroidism Surgical History History of knee replacement History of left hip replacement Family History Family History Father No problems noted. Mother Heart disease Brother Atrial fibrillation Brother Atrial fibrillation Brother Atrial fibrillation Social History Social History Household Members: Family Housing: House Alcohol intake: never Smoking Status: Never smoker Use of substances other than those prescribed or required for medical reasons: No Advance Directives: Yes Advance Directives on File: Yes Advance Directives Date on File: 10/09/20 service: No Current occupational status: retired Physical Exam Vital Signs: Vital Signs: Last Vital Signs Temp 98.3 F 10/25/20 10:14 Pulse 83 10/25/20 13:39 Resp 16 10/25/20 13:39 BP 100/52 L 10/25/20 13:39 Pulse Ox 97 10/25/20 13:39 Body Mass Index 37.4 Const: General: cooperative, comfortable and no acute distress Orientation/consciousness: patient oriented x3 Limitations: no limitations HENMT: Head: Yes normal to inspection Ears: hearing grossly normal bilaterally General nose exam: Normal external nose present Face and sinus: Yes normal facial exam Eyes: General: appearance normal, both eyes and all related structures EOM: EOMs intact bilaterally Neck: Neck: Yes normal visual inspection Resp: Effort & Inspection: normal respiratory effort Auscultation: clear to auscultation bilaterally, no rales, no rhonchi and no wheezes Cardio: Rate: regular rate Heart sounds: S1 normal heart sound present and S2 normal heart sound present GI: Inspection: Yes normal to inspection Palpation (GI): Soft to palpation, nontender, no guarding and not rigid Skin: Rashes: no rashes Wounds: no wounds Neuro: General: patient oriented x3, tone normal and moves all extremities Gait exam (Neuro): Normal gait present Extrem: General: Yes normal to inspection Course Course Course Narrative: - chronic leukopenia. H&H at baseline - K+ low at 3.0 > p.o. repletion ordered. Magnesium low at 1.2 > IV repletion ordered. Labs otherwise at patient's baseline Case discussed with Dr. Alicia who is aware -patient tolerated p.o. potassium without vomiting -1600--patient is tolerating p.o. anne marie hilton and apple juice in the ED without nausea or vomiting. UA is infected. First dose Ceftin given in the ED. Results discussed with patient including worrisome signs symptoms and strict return precautions. Stressed importance p.o. intake. She verbalized understanding & feels safe for discharge home MDM - Nausea/Vomiting/Diarrhea MDM Narrative Medical decision making narrative: 75-year-old female with a past medical history of diabetes, hypertension, hypercalcemia, hyperlipidemia, RADHA, pancytopenia, hyperthyroid, multiple myeloma recently started on chemotherapy person patient Monday10/23/2020, presenting to the ED complaining of persistent nausea, vomiting, and diarrhea, with inability to tolerate p.o. since yesterday. On exam VSS, NAD/nontoxic appearing, abdomen soft/nontender. Concern for dehydration/metabolic abnormalities/chemotherapy side effect. Lower concern for infectious etiology Plan: EKG, labs, UA, IVF, antiemetics, p.o. challenge, reassess Medical Records Attestation: I reviewed the patient's medical records. Lab Data Attestation: I reviewed the patient's lab results. Result diagrams: 10/25/20 11:18 10/25/20 11:18 Labs: Lab Results 10/25/20 10/25/20 10/25/20 Range/Units 11:18 11:18 11:18 WBC 2.4 L (4.8-10.8) X10*3/uL RBC 2.95 L (4.20-5.50) X10*6/uL Hgb 9.4 L (12.0-16.0) g/dl Hct 28.8 L (37-47) % MCV 97.6 (80-98) fL MCH 31.9 (27.0-33.0) pg MCHC 32.6 (31.0-35.0) g/dl RDW 17.6 H (11.0-16.0) % Plt Count 72 L (160-400) X10*3/uL MPV 10.1 (9.4-12.3) fL Immature Gran % (Auto) 0.4 (0.0-0.4) % Neut % (Auto) 80.1 H (45-73) % Lymph % (Auto) 14.5 L (20-40) % Twiggs % (Auto) 5.0 (2-11) % Eos % (Auto) 0.0 (0-4) % Baso % (Auto) 0.0 (0-2) % Lymph # (Auto) 0.4 L (1.2-4.9) X10*3/uL Twiggs # (Auto) 0.1 (0.1-1.2) X10*3/uL Eos # (Auto) 0.0 (0.0-0.4) X10*3/uL Baso # (Auto) 0.0 (0.0-0.2) X10*3/uL Abs Immat Gran (auto) 0.01 (0.00-0.03) X10*3/uL Absolute Neuts (auto) 1.9 L (2.0-8.3) X10*3/uL Absolute Nucleated RBC 0.000 (0.0-0.012) X10*3/uL Nucleated RBC % (auto) 0.0 (0.0-0.2) /100WBC Smear Tech's Comments VERIFIED Hold Blue Top SEE NOTE Sodium 140 (135-145) mmol/L Potassium 3.0 L (3.3-5.1) mmol/L Chloride 109 H (96-108) mmol/L Carbon Dioxide 22 (22-29) mmol/L Anion Gap 12 (12-20) BUN 13 (9-16) mg/dL Creatinine 0.90 (0.5-1.4) mg/dL Estim Creat Clear Calc 64.9 Estimated GFR > 60 Random Glucose 164 H (60-115) mg/dL Calcium 7.4 L D (8.4-10.2) mg/dL Magnesium 1.2 L* (1.6-2.6) mg/dL Total Bilirubin 1.0 (0.0-1.0) mg/dL Direct Bilirubin 0.5 (0.0-0.5) mg/dL AST 18 (5-31) U/L ALT 26 (0-31) U/L Alkaline Phosphatase 50 (39-117) U/L B-Natriuretic Peptide (<100) pg/mL Total Protein 6.1 L (6.5-8.0) g/dL Albumin 1.9 L (3.5-5.0) g/dL Lipase 35 (8-78) U/L Urine Color Urine Appearance Urine pH (5.0-8.0) Ur Specific Blythe (1.005-1.025) Urine Protein (NEG-TRACE) MG/DL Urine Glucose (UA) (NEG) MG/DL Urine Ketones (NEG) MG/DL Urine Blood (NEG) Urine Nitrite (NEG) Ur Leukocyte Esterase (NEG) Urine RBC (0) /HPF Urine WBC (0-4) /HPF Ur Squamous Epith Cells /LPF Amorphous Sediment /LPF Urine Bacteria /LPF Urine Mucus /LPF 10/25/20 10/25/20 Range/Units 11:18 15:03 WBC (4.8-10.8) X10*3/uL RBC (4.20-5.50) X10*6/uL Hgb (12.0-16.0) g/dl Hct (37-47) % MCV (80-98) fL MCH (27.0-33.0) pg MCHC (31.0-35.0) g/dl RDW (11.0-16.0) % Plt Count (160-400) X10*3/uL MPV (9.4-12.3) fL Immature Gran % (Auto) (0.0-0.4) % Neut % (Auto) (45-73) % Lymph % (Auto) (20-40) % Twiggs % (Auto) (2-11) % Eos % (Auto) (0-4) % Baso % (Auto) (0-2) % Lymph # (Auto) (1.2-4.9) X10*3/uL Twiggs # (Auto) (0.1-1.2) X10*3/uL Eos # (Auto) (0.0-0.4) X10*3/uL Baso # (Auto) (0.0-0.2) X10*3/uL Abs Immat Gran (auto) (0.00-0.03) X10*3/uL Absolute Neuts (auto) (2.0-8.3) X10*3/uL Absolute Nucleated RBC (0.0-0.012) X10*3/uL Nucleated RBC % (auto) (0.0-0.2) /100WBC Smear Tech's Comments Hold Blue Top Sodium (135-145) mmol/L Potassium (3.3-5.1) mmol/L Chloride (96-108) mmol/L Carbon Dioxide (22-29) mmol/L Anion Gap (12-20) BUN (9-16) mg/dL Creatinine (0.5-1.4) mg/dL Estim Creat Clear Calc Estimated GFR Random Glucose (60-115) mg/dL Calcium (8.4-10.2) mg/dL Magnesium (1.6-2.6) mg/dL Total Bilirubin (0.0-1.0) mg/dL Direct Bilirubin (0.0-0.5) mg/dL AST (5-31) U/L ALT (0-31) U/L Alkaline Phosphatase (39-117) U/L B-Natriuretic Peptide 91 (<100) pg/mL Total Protein (6.5-8.0) g/dL Albumin (3.5-5.0) g/dL Lipase (8-78) U/L Urine Color YELLOW Urine Appearance HAZY Urine pH 6.0 (5.0-8.0) Ur Specific Blythe 1.025 (1.005-1.025) Urine Protein 1+ H (NEG-TRACE) MG/DL Urine Glucose (UA) NEG (NEG) MG/DL Urine Ketones NEG (NEG) MG/DL Urine Blood NEG (NEG) Urine Nitrite NEG (NEG) Ur Leukocyte Esterase 2+ H (NEG) Urine RBC 0-2 (0) /HPF Urine WBC 10-14 H (0-4) /HPF Ur Squamous Epith Cells 2+ /LPF Amorphous Sediment 1+ /LPF Urine Bacteria 1+ /LPF Urine Mucus 1+ /LPF Discharge Plan Discharge Clinical Impression: Nausea, vomiting, and diarrhea Patient Disposition: Home, Self-Care Instructions: Acute Nausea and Vomiting (ED) Additional Instructions: Your potassium and magnesium were low today in the emergency department, as expected from the vomiting and diarrhea you are having You have a urinary tract infection, Ceftin is an antibiotic, take as prescribed Zofran as an antinausea medication, take as needed It is important that your tolerating liquid and food at home Call your oncologist in the morning to make aware of your ED visit Make sure you have close follow-up If you are unable to tolerate orally, develops fever, persistent or worsening nausea/vomiting or diarrhea return to the ED Prescriptions: New ondansetron HCl [Zofran] 4 mg tablet 4 mg PO Q8H PRN (Reason: nausea and vomiting) Qty: 10 RF: 0 cefuroxime axetil 250 mg tablet 250 mg PO BID 7 Days Qty: 14 RF: 0 No Action polyethylene glycol 3350 [Miralax] 17 gram/dose Powder 17 g PO DAILY RF: 0 tramadol 50 mg tablet 1 tab PO Q12H PRN (Reason: pain) RF: 0 bisacodyl 10 mg suppository 1 supp OH DAILY PRN (Reason: constipation) RF: 0 sennosides [senna] 8.6 mg Tablet 8.6 mg PO BEDTIME RF: 0 aspirin 81 mg tablet,chewable 81 mg PO DAILY RF: 0 allopurinol 300 mg tablet 300 mg PO DAILY RF: 0 docusate sodium 100 mg capsule 100 mg PO BID RF: 0 insulin aspart U-100 100 unit/mL (3 mL) insulin pen 2 - 12 unit subcut TID RF: 0 omeprazole 20 mg capsule,delayed release(DR/EC) 20 mg PO DAILY RF: 0 insulin detemir U-100 100 unit/mL (3 mL) insulin pen 20 unit subcut BEDTIME RF: 0 amlodipine 5 mg tablet 5 mg PO DAILY RF: 0 Referrals: Carissa Raman MD [Physician] - 2 days
--- NOTE | 2020-10-25 12:48 | ECG_ITS ---
Test Reason : ABNORMAL LABS Blood Pressure : / mmHG Vent. Rate : 087 BPM Atrial Rate : 087 BPM P-R Int : 170 ms QRS Dur : 072 ms QT Int : 396 ms P-R-T Axes : 004 -25 -29 degrees QTc Int : 476 ms Normal sinus rhythm Low voltage QRS Nonspecific ST and T wave abnormality Prolonged QT Abnormal ECG When compared with ECG of 09-OCT-2020 09:00, No significant changes seen Referred By: Bernardo Louis Electronically Signed By:FABRICE LEACH
[2020-10-25 12:49] LABS: B Type Natriuretic Peptide 91 pg/mL (<100)
[2020-10-25] MEDS: 0.9 % Sodium Chloride 1,000 ML 999 ML IVCONT (12:59)
[2020-10-25] MEDS: Metoclopramide HCl 10 MG/2 ML VIAL IVPUSH (12:59)
[2020-10-25] MEDS: Magnesium Sulfate/H2O 2 GM/50 ML PIGGYBACK IV (12:59)
[2020-10-25] MEDS: Potassium Chloride Packet 20 MEQ PACKET 40 MEQ PO (12:59)
[2020-10-25 13:39] VITALS: BP 100/52; PULSE 83; RESP 16; O2SAT 97
[2020-10-25 15:10] LABS: Glucose Urine UA NEG (NEG); Leukocyte Esterase Urine 2+ (NEG); Nitrite Urine NEG (NEG); Specific Gravity - Urine 1.025 (1.005-1.025); UACC Culture Trigger YES; Urine Blood NEG (NEG); Urine Ketones NEG (NEG); Urine Protein 1+ MG/DL (NEG-TRACE)
[2020-10-25 15:12] LABS: Appearance Urine HAZY; Color Urine YELLOW
[2020-10-25 15:18] LABS: Amorphous Sediment Urine 1+ /LPF; Bacteria Urine 1+ /LPF; Mucus Urine 1+ /LPF; RBC Urine 0-2 /HPF (0); Squamous Epithelial Cell Urine 2+ /LPF
[2020-10-25 16:00] VITALS: BP 97/52; PULSE 76; RESP 16; TEMP 36.8; O2SAT 97
== END 2020-10-25 16:46 | disposition home or self-care (01) ==
PROVIDERS: Physician Assistant; Emergency Provider Emergency Medicine Emergency Medical Services
DX: R11.2 Nausea with vomiting, unspecified (principal); R19.7 Diarrhea, unspecified; R50.9 Fever, unspecified; C90.00 Multiple myeloma not having achieved remission; Z92.21 Personal history of antineoplastic chemotherapy; E11.9 Type 2 diabetes mellitus without complications; I10 Essential (primary) hypertension
CPT/HCPCS: 36415; 80048; 80076; 81001; 81003; 83690; 83735; 83880; 85025; 87086; 93005; 96361; 96365; 96366; 96375; 99284; J2405; J2765; J3475

== ENCOUNTER → 2020-10-29 07:48 | Outpatient (BNVA) | payer OTHER, SELFPAY | PROVIDERS: PCP Internal Medicine; Visit Provider Internal Medicine Endocrinology, Diabetes & Metabolism ==

== ENCOUNTER 2020-10-30 06:52 | Day surgery (SDC) | payer OTHER, SELFPAY ==
--- NOTE | ~2020-10-30 | IR_ITS ---
PROCEDURE: IR INSERTION OF TUNNEL CATHETER IR ULTRASOUND-GUIDED VENOUS ACCESS CLINICAL INFORMATION: Multiple myeloma. COMPARISON: None TECHNIQUE: Procedure and risks and benefits including bleeding, infection and pneumothorax were discussed with the patient, and informed consent was obtained. All elements of maximal sterile barrier technique followed including use of cap, mask, sterile gown, sterile gloves, a sterile full body drape, and hand hygiene. Also followed skin preparation with 2% chlorhexidine for cutaneous antisepsis, and sterile ultrasound preparation with sterile gel and probe cover when applicable. The right neck and chest were prepped and draped in the usual sterile fashion. The skin and soft tissues were anesthetized with 1% lidocaine plain. Using ultrasound guidance and a 5-Trinidadian micropuncture system, right internal jugular vein access was obtained. Over an .018 wire, a 5-Trinidadian dilator was positioned in the SVC. The skin and soft tissues of the right anterior chest were anesthetized with 1% lidocaine plain. A small incision was made. Using blunt dissection, a subcutaneous pocket was created. A subcutaneous tunnel from the chest to the neck incision was anesthetized with 1% lidocaine plain. Using a tunneler, a 6.6-Trinidadian single-lumen catheter was tunneled from the chest to the neck incision. The catheter was attached to the port. The port and catheter were flushed. The port was secured in the subcutaneous pocket using 2 2-0 non-absorbable sutures. An .035 guidewire was advanced through the 5-Trinidadian dilator into the IVC. 5-Trinidadian dilator was exchanged for a 7-Trinidadian peel-away sheath. Using bent wire technique, catheter length was estimated and the catheter was cut. The catheter was fed through the peel-away sheath. The neck incision was closed using a 4-0 absorbable subcuticular suture. The chest incision was closed using 3 3-0 absorbable interrupted sutures followed by a 4-0 running absorbable subcuticular suture. The port was accessed. The port had good blood return, flushed easily and was instilled with heparin, 5 mL 100 unit per mL solution. The patient received real-time ultrasound guidance was used to document vein patency and needle entry. A formal ultrasound picture was recorded. Fluoroscopy time: 1.8 minutes. DAP: 199 cGy-cm2. The patient received Versed 2 mg and fentanyl 150 mcg and Kefzol 2 g IV during the procedure. Total sedation time was 35 minutes. FINDINGS: There is a right internal jugular Port-A-Cath with tip projecting over the SVC. IR/IR us guide venous access IMPRESSION: Right internal jugular 6.6-Trinidadian single-lumen Dignity Port-A-Cath placement.
--- NOTE | ~2020-10-30 | IR_ITS ---
PROCEDURE: IR INSERTION OF TUNNEL CATHETER IR ULTRASOUND-GUIDED VENOUS ACCESS CLINICAL INFORMATION: Multiple myeloma. COMPARISON: None TECHNIQUE: Procedure and risks and benefits including bleeding, infection and pneumothorax were discussed with the patient, and informed consent was obtained. All elements of maximal sterile barrier technique followed including use of cap, mask, sterile gown, sterile gloves, a sterile full body drape, and hand hygiene. Also followed skin preparation with 2% chlorhexidine for cutaneous antisepsis, and sterile ultrasound preparation with sterile gel and probe cover when applicable. The right neck and chest were prepped and draped in the usual sterile fashion. The skin and soft tissues were anesthetized with 1% lidocaine plain. Using ultrasound guidance and a 5-Russian micropuncture system, right internal jugular vein access was obtained. Over an .018 wire, a 5-Russian dilator was positioned in the SVC. The skin and soft tissues of the right anterior chest were anesthetized with 1% lidocaine plain. A small incision was made. Using blunt dissection, a subcutaneous pocket was created. A subcutaneous tunnel from the chest to the neck incision was anesthetized with 1% lidocaine plain. Using a tunneler, a 6.6-Russian single-lumen catheter was tunneled from the chest to the neck incision. The catheter was attached to the port. The port and catheter were flushed. The port was secured in the subcutaneous pocket using 2 2-0 non-absorbable sutures. An .035 guidewire was advanced through the 5-Russian dilator into the IVC. 5-Russian dilator was exchanged for a 7-Russian peel-away sheath. Using bent wire technique, catheter length was estimated and the catheter was cut. The catheter was fed through the peel-away sheath. The neck incision was closed using a 4-0 absorbable subcuticular suture. The chest incision was closed using 3 3-0 absorbable interrupted sutures followed by a 4-0 running absorbable subcuticular suture. The port was accessed. The port had good blood return, flushed easily and was instilled with heparin, 5 mL 100 unit per mL solution. The patient received real-time ultrasound guidance was used to document vein patency and needle entry. A formal ultrasound picture was recorded. Fluoroscopy time: 1.8 minutes. DAP: 199 cGy-cm2. The patient received Versed 2 mg and fentanyl 150 mcg and Kefzol 2 g IV during the procedure. Total sedation time was 35 minutes. FINDINGS: There is a right internal jugular Port-A-Cath with tip projecting over the SVC. IR/IR cvc insert tunnel w prt/geophysics teacher IMPRESSION: Right internal jugular 6.6-Russian single-lumen Dignity Port-A-Cath placement.
[2020-10-30 07:05] LABS: Glucose, Whole Blood 80 mg/dL (60-115)
[2020-10-30 07:21] VITALS: BMI 38.2
[2020-10-30 07:31] LABS: Basophils Percent Auto 1.4 % (0-2); Eosinophils Percent Auto 0.9 % (0-4); Hematocrit 31.6 % (37-47); Hemoglobin 10.3 g/dl (12.0-16.0); Imm Gran Abs Auto 0.01 X10*3/uL (0.00-0.03); Imm Gran Pct Auto 0.5 % (0.0-0.4); Lymphocytes Absolute Auto 0.9 X10*3/uL (1.2-4.9); Lymphocytes Percent Auto 42.5 % (20-40); MANUAL DIFF FLAG SCAN; Mean Corpuscular HGB Conc 32.6 g/dl (31.0-35.0); Mean Corpuscular Hemoglobin 31.8 pg (27.0-33.0); Mean Corpuscular Volume 97.5 fL (80-98); Mean Platelet Volume 9.5 fL (9.4-12.3); Monocytes Absolute Auto 0.1 X10*3/uL (0.1-1.2); Monocytes Percent Auto 4.7 % (2-11); Neutrophils Absolute Auto 1.1 X10*3/uL (2.0-8.3); Red Blood Count 3.24 X10*6/uL (4.20-5.50); Red Cell Distribution Width 17.7 % (11.0-16.0); SCAN SMEAR FLAG 1
[2020-10-30 07:36] LABS: Platelet Count 72 X10*3/uL (160-400); White Blood Count 2.1 X10*3/uL (4.8-10.8)
[2020-10-30 07:37] LABS: INTERNATIONAL NORM RATIO 1.5 (0.9-1.1); Prothrombin Time 17.7 SEC (10.8-13.0)
[2020-10-30 07:39] VITALS: BP 99/56; PULSE 91; RESP 20; TEMP 36.3; O2SAT 100
[2020-10-30 07:40] LABS: Partial Thromboplastin Time 29.3 SEC (24.1-38.0)
[2020-10-30 07:59] LABS: Anion Gap 9 (12-20); Blood Urea Nitrogen 7 mg/dL (9-16); Carbon Dioxide 22 mmol/L (22-29); Chloride 114 mmol/L (96-108); Creatinine Clr Calc Pharmacy 69.5; Estimated Glomerular Filt Rate > 60; Potassium 3.5 mmol/L (3.3-5.1); Sodium 141 mmol/L (135-145)
[2020-10-30 08:08] LABS: SLIDE REVIEW VERIFIED
--- NOTE | 2020-10-30 10:21 | HO.RADPN ---
RADIOLOGY Narrative Narrative: Right IJ 6.6 Fr single lumen Dignity portacath placed. Tip in SVC.
[2020-10-30 10:30] VITALS: BP 101/51; PULSE 94; RESP 16; TEMP 36.8; O2SAT 99
[2020-10-30 10:45] VITALS: BP 117/73; PULSE 86; RESP 18; O2SAT 98
[2020-10-30] MEDS: ondansetron HCL 4 MG/2 ML VIAL IVPUSH (10:52)
[2020-10-30 11:00] VITALS: BP 113/63; PULSE 86; RESP 18; O2SAT 100
[2020-10-30 11:34] VITALS: BP 110/59; PULSE 91; RESP 18; TEMP 36.8; O2SAT 100
== END 2020-10-30 11:40 | disposition home or self-care (01) ==
PROVIDERS: Radiology Diagnostic Radiology; Visit Provider Radiology Diagnostic Radiology
DX: Z45.2 Encounter for adjustment and management of vascular access device (principal); C90.00 Multiple myeloma not having achieved remission; I10 Essential (primary) hypertension; E11.9 Type 2 diabetes mellitus without complications; G47.33 Obstructive sleep apnea (adult) (pediatric); Z79.4 Long term (current) use of insulin; Z79.899 Other long term (current) drug therapy; Z88.2 Allergy status to sulfonamides; Z88.8 Allergy status to other drugs, medicaments and biological substances
CPT/HCPCS: 36415; 36561; 76937; 80051; 82565; 82947; 84520; 85025; 85610; 85730; 99152; 99153; C1769; C1788; J0690; J1642; J2250; J2405; J3010

== ENCOUNTER 2020-11-03 10:13 | Inpatient (IN) | payer OTHER, SELFPAY ==
--- NOTE | ~2020-11-03 | CT_ITS ---
EXAMINATION: CT FEMUR WITHOUT AND WITH CONTRAST, RIGHT CLINICAL INFORMATION: Lytic lesion seen on skeletal survey = Osteopenia versus lucency in the right medial femoral shaft just inferior to the lesser trochanter COMPARISON: Bone survey 10/06/2020. CT scan abdomen pelvis 10/08/2020 TECHNIQUE: Axial images obtained through the right femur from hip through knee. Coronal and sagittal reformatted images are performed at CT scanner This CT examination was performed using dose optimization techniques as appropriate, variously including the following: *Automated exposure control *Adjustment of mA and/or kV according to patient size (this includes techniques or standardized protocols for targeted exams where dose is matched to indication/reason for exam; i.e. extremities or head) *Use of iterative reconstruction technique DLP: 659 mGy-cm FINDINGS: No fracture. No bone destruction. No focal bone lesion. No abnormal periosteal reaction. 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 Small joint effusion with suprapatellar fossa the right knee. Mild degenerative change of the right hip with joint narrowing. No soft tissue mass or focal abnormality. CT/CT femur RT wo/w con IMPRESSION: No focal bone lesion. No acute change of the femur.
--- NOTE | ~2020-11-03 | CT_ITS ---
EXAMINATION: CT ABDOMEN AND PELVIS WITHOUT CONTRAST CLINICAL INFORMATION: Nausea and vomiting COMPARISON: 10/08/2020 TECHNIQUE: Multidetector volumetric imaging was performed from the superior aspect of the liver through the pubic symphysis. Sagittal and coronal reformatted images were obtained on the technologist's workstation. This CT examination was performed using dose optimization techniques as appropriate, variously including the following: *Automated exposure control *Adjustment of mA and/or kV according to patient size (this includes techniques or standardized protocols for targeted exams where dose is matched to indication/reason for exam; i.e. extremities or head) *Use of iterative reconstruction technique DLP: 1068 mGy-cm FINDINGS: LUNG BASES: Trace bilateral pleural effusions. LIVER, GALLBLADDER, AND BILIARY TREE: Liver normal in size, contour and morphology. Diffuse hepatic steatosis. No focal liver lesions. No intra or extrahepatic biliary dilatation. Cholecystectomy. PANCREAS: Mild peripancreatic fat stranding redemonstrated, similar to that seen previously. No acute necrotic or peripancreatic fluid collections. SPLEEN: Mildly enlarged measuring up to 16 cm long axis. ADRENAL GLANDS: Unremarkable. KIDNEYS AND URETERS: The kidneys are normal in size, shape, and attenuation. No hydronephrosis, hydroureter, or calculi seen. No perinephric stranding. BLADDER: Unremarkable. GASTROINTESTINAL TRACT: Pancolonic diverticulosis. No evidence of diverticulitis. Stomach unremarkable. Mild inflammation of the first and second portions of the duodenum, likely reactive to the patient's pancreatitis. Small bowel otherwise unremarkable. Normal appendix. ABDOMINAL WALL: Small fat-containing umbilical hernia. Mild anasarca. LYMPH NODES: Normal. VASCULAR: Aorta is atherosclerotic but normal caliber. PELVIC VISCERA: Uterus and ovaries unremarkable. OSSEOUS STRUCTURES: No acute or suspicious osseous abnormalities. Degenerative interbody fusion present at L5-S1. Degenerative changes present throughout the spine. Left total hip arthroplasty. CT/CT abdomen pelvis wo con IMPRESSION: * Findings compatible with acute uncomplicated edematous pancreatitis, similar in appearance to prior. * Diffuse hepatic steatosis. * Mild anasarca. * Pancolonic diverticulosis without evidence of diverticulitis. * Mild splenomegaly.
[2020-11-03 10:27] VITALS: BP 98/56; PULSE 86; RESP 16; TEMP 36.7; O2SAT 100; BMI 38.2
--- NOTE | 2020-11-03 10:52 | ED_ITS ---
HPI - General Adult General Chief complaint: General Medical <Junior Anthony MD - Last Filed: 11/11/20 08:24> Stated complaint: DEHYDRATION <Junior Anthony MD - Last Filed: 11/11/20 08:24> Time Seen by Provider: 11/03/20 10:52 <Junior Anthony MD - Last Filed: 11/11/20 08:24> Source: patient <Junior Anthony MD - Last Filed: 11/11/20 08:24> Mode of arrival: ambulatory <Junior Anthony MD - Last Filed: 11/11/20 08:24> Limitations: no limitations <Junior Anthony MD - Last Filed: 11/11/20 08:24> History of Present Illness HPI narrative: patient has multiple myeloma and had a port put in Monday. Patient had first chemo 13 days ago. now with continued N/V and weakness <Junior Anthony MD - Last Filed: 11/11/20 08:24> Onset (ago): day(s) <Junior Anthony MD - Last Filed: 11/11/20 08:24> Severity: moderate <Junior Anthony MD - Last Filed: 11/11/20 08:24> Associated symptoms: weakness <Junior Anthony MD - Last Filed: 11/11/20 08:24> Related Data Home medications: Home Medications Medication Instructions Recorded Confirmed aspirin 81 mg chewable tablet 81 mg PO DAILY 04/22/20 11/03/20 docusate sodium 100 mg capsule 100 mg PO BID 04/22/20 11/03/20 insulin aspart U-100 100 unit/mL 2 - 12 unit SUBCUT TID 04/22/20 11/03/20 (3 mL) subcutaneous pen omeprazole 20 mg capsule,delayed 20 mg PO DAILY 04/22/20 11/03/20 release insulin detemir U-100 100 unit/mL 20 unit SUBCUT BEDTIME ml 09/30/20 11/03/20 (3 mL) subcutaneous pen polyethylene glycol 3350 [Miralax] 17 g PO DAILY PRN 10/06/20 11/03/20 bisacodyl 1 supp [place] DAILY PRN 10/09/20 11/03/20 sennosides [senna] 8.6 mg PO BEDTIME PRN 10/09/20 11/03/20 tramadol 1 tab PO Q12H PRN 10/20/20 11/03/20 furosemide 20 mg tablet 20 mg PO DAILY 10/29/20 11/10/20 lenalidomide [Revlimid] 15 mg PO DAILY 11/10/20 11/10/20 Previous Rx's Medication Instructions Recorded ondansetron HCl [Zofran] 4 mg PO Q8H PRN #10 tab 10/25/20 acyclovir 400 mg PO DAILY #90 tab 10/26/20 dexamethasone [Decadron] 20 mg PO 2XW #100 tab 10/26/20 ondansetron HCl [Zofran] 8 mg PO Q8H PRN #50 tab 10/26/20 atovaquone [Mepron] 1,500 mg PO DAILY #300 ml 10/29/20 metoclopramide HCl [Reglan] 5 mg PO TIDAC #30 tab 11/09/20 <Junior Anthony MD - Last Filed: 11/11/20 08:24> Allergies/adverse reactions: Allergies Allergy/AdvReac Type Severity Reaction Status Date / Time codeine [CODEINE] Allergy Intermediate NAUSEA & Verified 10/25/20 10:17 VOMITING, vomiting lisinopril [LISINOPRIL] Allergy Intermediate COUGH, Verified 10/25/20 10:17 Coughing sulfamethoxazole Allergy Intermediate RASH Verified 10/25/20 10:17 [From BACTRIM] <Junior Anthony MD - Last Filed: 11/11/20 08:24> Review of Systems Constitutional: Constitutional: Reports no additional constitutional complaints <Junior Anthony MD - Last Filed: 11/11/20 08:24> Eyes: Eyes: Reports no additional eye complaints <Junior Anthony MD - Last Filed: 11/11/20 08:24> ENT: Denies dizziness <Junior Anthony MD - Last Filed: 11/11/20 08:24> Cardiovascular: Cardiovascular: Reports no additional cardiovascular complaints <Junior Anthony MD - Last Filed: 11/11/20 08:24> Respiratory: Respiratory: Reports as per HPI <Junior Anthony MD - Last Filed: 11/11/20 08:24> Gastrointestinal: Gastrointestinal: Reports no additional gastrointestinal complaints <Junior Anthony MD - Last Filed: 11/11/20 08:24> Genitourinary: Genitourinary: Reports no additional female genitourinary complaints <Junior Anthony MD - Last Filed: 11/11/20 08:24> Musculoskeletal: Musculoskeletal: Reports no additional musculoskeletal complaints <Junior Anthony MD - Last Filed: 11/11/20 08:24> Integumentary/Breasts: Skin/Breast: Denies rash <Junior Anthony MD - Last Filed: 11/11/20 08:24> Neurologic: Reports system reviewed and no additional complaints, except as documented, Denies dizziness and Denies Sensory deficit (Neuro) <Junior Anthony MD - Last Filed: 11/11/20 08:24> Psychiatric: Psychiatric: Denies anxiety <Junior Anthony MD - Last Filed: 11/11/20 08:24> COUNTS INCLUDE 234 BEDS AT THE [facility] Past Medical History Medical History: Medical History Diabetes mellitus type 2, controlled, without complications Essential hypertension Hypercalcemia Hyperlipidemia, unspecified Hypoglycemia unawareness associated with type 2 diabetes mellitus Obstructive sleep apnea Pancytopenia Subclinical hyperthyroidism <Junior Anthony MD - Last Filed: 11/11/20 08:24> Surgical History: Surgical History History of knee replacement History of left hip replacement <Junior Anthony MD - Last Filed: 11/11/20 08:24> Family History Family History: Family History Father No problems noted. Mother Heart disease Brother Atrial fibrillation Brother Atrial fibrillation Brother Atrial fibrillation <Junior Anthony MD - Last Filed: 11/11/20 08:24> Social History Social History: Social History Household Members: Family Housing: House Alcohol intake: never Smoking Status: Never smoker Advance Directives Date on File: 10/09/20 service: No Current occupational status: retired <Junior Anthony MD - Last Filed: 11/11/20 08:24> Physical Exam Vital Signs: Vital Signs: Last Vital Signs Temp 97.1 F 11/09/20 08:00 Pulse 88 11/09/20 08:00 Resp 18 11/09/20 08:00 BP 112/69 11/09/20 08:00 Pulse Ox 97 11/09/20 08:00 Body Mass Index 38.2 <Junior Anthony MD - Last Filed: 11/11/20 08:24> Vital Signs: Last Vital Signs Temp 97.1 F 11/09/20 08:00 Pulse 88 11/09/20 08:00 Resp 18 11/09/20 08:00 BP 112/69 11/09/20 08:00 Pulse Ox 97 11/09/20 08:00 Body Mass Index 38.2 <Tami Maher DO - Last Filed: 11/03/20 19:14> Const: Other: obese female feeling weak <Junior Anthony MD - Last Filed: 11/11/20 08:24> Orientation/consciousness: oriented to person and patient oriented x3 <Junior Anthony MD - Last Filed: 11/11/20 08:24> Limitations: no limitations <Junior Anthony MD - Last Filed: 11/11/20 08:24> HENMT: Head: Yes normal to inspection <Junior Anthony MD - Last Filed: 11/11/20 08:24> Ears: external ears normal <Junior Anthony MD - Last Filed: 11/11/20 08:24> General nose exam: Normal external nose present <Junior Anthony MD - Last Filed: 11/11/20 08:24> Mouth: Normal oral and palatal mucosa present and oropharynx normal <Junior Anthony MD - Last Filed: 11/11/20 08:24> Throat: Yes posterior oropharynx normal <Junior Anthony MD - Last Filed: 11/11/20 08:24> Eyes: General: appearance normal, both eyes and all related structures <Junior Anthony MD - Last Filed: 11/11/20 08:24> Neck: Other: supple <Junior Anthony MD - Last Filed: 11/11/20 08:24> Neck: Yes normal visual inspection <Junior Anthony MD - Last Filed: 11/11/20 08:24> Chest: Chest palpation & inspection: normal inspection of the chest <Junior Anthony MD - Last Filed: 11/11/20 08:24> Resp: Auscultation: clear to auscultation bilaterally <Junior Anthony MD - Last Filed: 11/11/20 08:24> Cardio: Jugular venous distension: no JVD <Junior Anthony MD - Last Filed: 11/11/20 08:24> Rate: regular rate <Junior Anthony MD - Last Filed: 11/11/20 08:24> Rhythm: regular rhythm <Junior Anthony MD - Last Filed: 11/11/20 08:24> Heart sounds: S1 normal heart sound present and S2 normal heart sound present <Junior Anthony MD - Last Filed: 11/11/20 08:24> GI: Inspection: Yes normal to inspection <Junior Anthony MD - Last Filed: 11/11/20 08:24> Palpation (GI): Soft to palpation, nontender and No hepatosplenomegaly present <Junior Anthony MD - Last Filed: 11/11/20 08:24> Auscultation: normal bowel sounds <Junior Anthony MD - Last Filed: 11/11/20 08:24> : General: Yes no CVA tenderness <Junior Anthony MD - Last Filed: 11/11/20 08:24> Back/Spine/Pelvis: Back: no CVA tenderness <Junior Anthony MD - Last Filed: 11/11/20 08:24> Skin: General skin exam: no rashes or lesions noted <Junior Anthony MD - Last Filed: 11/11/20 08:24> Neuro: General: oriented to person and patient oriented x3 <Junior Anthony MD - Last Filed: 11/11/20 08:24> Cranial nerves: Yes CN's II-XII intact bilaterally <Junior Anthony MD - Last Filed: 11/11/20 08:24> Motor exam (neuro): 5/5 motor strength present throughout <Junior Anthony MD - Last Filed: 11/11/20 08:24> Sensory Exam: No Sensory deficit (Neuro) <Junior Anthony MD - Last Filed: 11/11/20 08:24> Extrem: Other: 3+ edema bilaterally <Junior Anthony MD - Last Filed: 11/11/20 08:24> Psych: Appearance: grossly normal <Junior Anthony MD - Last Filed: 11/11/20 08:24> Course Course Course Narrative: Discussed with Dr. Tavarez will replete CA, Mg and potassium and recheck labs and dc home if possible <Junior Anthony MD - Last Filed: 11/11/20 08:24> repeat lytes not improved, still feels weak and nauseated, will repeat calcium start PO K and IV K as well as repeat calcium and admit to hospitalist service Physician observation ended at 714pm Patient seen again and deemed she needed inpatient care. Plan is to to admit to hospital at this time. NAD, lungs clear, CV RRR, Abd nontender, Neuro intact. <Tami Maher DO - Last Filed: 11/03/20 19:14> Reevaluation(s) Reevaluation #1: patient is much less nauseaous <Junior Anthony MD - Last Filed: 11/11/20 08:24> Time: 15:32 <Junior Anthony MD - Last Filed: 11/11/20 08:24> Reevaluation #2: Patient placed in physician observation at 4:20pm The indication for observation is that the patient needs more time to see if her electrolyte abnormalities and nausea improves or she will need to be admitted. At this time the patient is feeling better, lungs clear, CV RRR, abd nontender, neuro is intact <Junior Anthony MD - Last Filed: 11/11/20 08:24> Time: 16:20 <Junior Anthony MD - Last Filed: 11/11/20 08:24> Medical Decision Making Lab Data Result diagrams: : 11/08/20 11:30 11/08/20 11:30 <Junior Anthony MD - Last Filed: 11/11/20 08:24> Labs: Lab Results 11/03/20 11/03/20 11/03/20 Range/Units 12:03 13:22 14:52 WBC 1.3 L (4.8-10.8) X10*3/uL RBC 2.91 L (4.20-5.50) X10*6/uL Hgb 9.0 L (12.0-16.0) g/dl Hct 28.3 L (37-47) % MCV 97.3 (80-98) fL MCH 30.9 (27.0-33.0) pg MCHC 31.8 (31.0-35.0) g/dl RDW 17.5 H (11.0-16.0) % Plt Count 66 L (160-400) X10*3/uL MPV 11.2 (9.4-12.3) fL Immature Gran % (Auto) 0.0 (0.0-0.4) % Neut % (Auto) 51.1 (45-73) % Lymph % (Auto) 42.6 H (20-40) % [place] % (Auto) 4.7 (2-11) % Eos % (Auto) 0.8 (0-4) % Baso % (Auto) 0.8 (0-2) % Lymph # (Auto) 0.6 L (1.2-4.9) X10*3/uL [place] # (Auto) 0.1 (0.1-1.2) X10*3/uL Eos # (Auto) 0.0 (0.0-0.4) X10*3/uL Baso # (Auto) 0.0 (0.0-0.2) X10*3/uL Abs Immat Gran (auto) 0.00 (0.00-0.03) X10*3/uL Absolute Neuts (auto) 0.7 L (2.0-8.3) X10*3/uL Absolute Nucleated RBC 0.000 (0.0-0.012) X10*3/uL Nucleated RBC % (auto) 0.0 (0.0-0.2) /100WBC Smear Tech's Comments VERIFIED Sodium 140 (135-145) mmol/L Potassium 3.0 L (3.3-5.1) mmol/L Chloride 116 H (96-108) mmol/L Carbon Dioxide 21 L (22-29) mmol/L Anion Gap 6 L (12-20) BUN 6 L (9-16) mg/dL Creatinine 0.84 (0.5-1.4) mg/dL Estim Creat Clear Calc 70.4 Estimated GFR > 60 Random Glucose 106 D (60-115) mg/dL Calcium 5.8 L* D (8.4-10.2) mg/dL Phosphorus 2.0 L (2.7-4.5) mg/dL Magnesium (1.6-2.6) mg/dL Total Bilirubin 0.8 (0.0-1.0) mg/dL Direct Bilirubin 0.4 (0.0-0.5) mg/dL AST 31 D (5-31) U/L ALT 20 (0-31) U/L Alkaline Phosphatase 46 (39-117) U/L Total Protein 5.7 L (6.5-8.0) g/dL Albumin 1.4 L D (3.5-5.0) g/dL Urine Color DARK YELLOW Urine Appearance CLEAR Urine pH 6.5 (5.0-8.0) Ur Specific [place] 1.025 (1.005-1.025) Urine Protein 1+ H (NEG-TRACE) MG/DL Urine Glucose (UA) NEG (NEG) MG/DL Urine Ketones 5 (NEG) MG/DL Urine Blood NEG (NEG) Urine Nitrite NEG (NEG) Ur Leukocyte Esterase NEG (NEG) Urine RBC 0-2 (0) /HPF Urine WBC 0-2 (0-4) /HPF Ur Squamous Epith Cells 1+ /LPF Ur Renal Epithelial Cell TRACE /LPF Urine Bacteria TRACE /LPF Hyaline Casts 1-4 /LPF Urine Mucus TRACE /LPF COVID-19 (RYAN) (Negative) COVID-19 Clin Com 11/03/20 11/03/20 Range/Units 18:30 20:57 WBC (4.8-10.8) X10*3/uL RBC (4.20-5.50) X10*6/uL Hgb (12.0-16.0) g/dl Hct (37-47) % MCV (80-98) fL MCH (27.0-33.0) pg MCHC (31.0-35.0) g/dl RDW (11.0-16.0) % Plt Count (160-400) X10*3/uL MPV (9.4-12.3) fL Immature Gran % (Auto) (0.0-0.4) % Neut % (Auto) (45-73) % Lymph % (Auto) (20-40) % [place] % (Auto) (2-11) % Eos % (Auto) (0-4) % Baso % (Auto) (0-2) % Lymph # (Auto) (1.2-4.9) X10*3/uL [place] # (Auto) (0.1-1.2) X10*3/uL Eos # (Auto) (0.0-0.4) X10*3/uL Baso # (Auto) (0.0-0.2) X10*3/uL Abs Immat Gran (auto) (0.00-0.03) X10*3/uL Absolute Neuts (auto) (2.0-8.3) X10*3/uL Absolute Nucleated RBC (0.0-0.012) X10*3/uL Nucleated RBC % (auto) (0.0-0.2) /100WBC Smear Tech's Comments Sodium 140 (135-145) mmol/L Potassium 2.9 L (3.3-5.1) mmol/L Chloride 116 H (96-108) mmol/L Carbon Dioxide 21 L (22-29) mmol/L Anion Gap 6 L (12-20) BUN 6 L (9-16) mg/dL Creatinine 0.82 (0.5-1.4) mg/dL Estim Creat Clear Calc 72.1 Estimated GFR > 60 Random Glucose 116 H (60-115) mg/dL Calcium 6.1 L (8.4-10.2) mg/dL Phosphorus (2.7-4.5) mg/dL Magnesium 1.6 (1.6-2.6) mg/dL Total Bilirubin (0.0-1.0) mg/dL Direct Bilirubin (0.0-0.5) mg/dL AST (5-31) U/L ALT (0-31) U/L Alkaline Phosphatase (39-117) U/L Total Protein (6.5-8.0) g/dL Albumin (3.5-5.0) g/dL Urine Color Urine Appearance Urine pH (5.0-8.0) Ur Specific [place] (1.005-1.025) Urine Protein (NEG-TRACE) MG/DL Urine Glucose (UA) (NEG) MG/DL Urine Ketones (NEG) MG/DL Urine Blood (NEG) Urine Nitrite (NEG) Ur Leukocyte Esterase (NEG) Urine RBC (0) /HPF Urine WBC (0-4) /HPF Ur Squamous Epith Cells /LPF Ur Renal Epithelial Cell /LPF Urine Bacteria /LPF Hyaline Casts /LPF Urine Mucus /LPF COVID-19 (RYAN) Negative (Negative) COVID-19 Clin Com See Note <Junior Anthony MD - Last Filed: 11/11/20 08:24> Lab Results 11/03/20 11/03/20 11/03/20 Range/Units 12:03 13:22 14:52 WBC 1.3 L (4.8-10.8) X10*3/uL RBC 2.91 L (4.20-5.50) X10*6/uL Hgb 9.0 L (12.0-16.0) g/dl Hct 28.3 L (37-47) % MCV 97.3 (80-98) fL MCH 30.9 (27.0-33.0) pg MCHC 31.8 (31.0-35.0) g/dl RDW 17.5 H (11.0-16.0) % Plt Count 66 L (160-400) X10*3/uL MPV 11.2 (9.4-12.3) fL Immature Gran % (Auto) 0.0 (0.0-0.4) % Neut % (Auto) 51.1 (45-73) % Lymph % (Auto) 42.6 H (20-40) % [place] % (Auto) 4.7 (2-11) % Eos % (Auto) 0.8 (0-4) % Baso % (Auto) 0.8 (0-2) % Lymph # (Auto) 0.6 L (1.2-4.9) X10*3/uL [place] # (Auto) 0.1 (0.1-1.2) X10*3/uL Eos # (Auto) 0.0 (0.0-0.4) X10*3/uL Baso # (Auto) 0.0 (0.0-0.2) X10*3/uL Abs Immat Gran (auto) 0.00 (0.00-0.03) X10*3/uL Absolute Neuts (auto) 0.7 L (2.0-8.3) X10*3/uL Absolute Nucleated RBC 0.000 (0.0-0.012) X10*3/uL Nucleated RBC % (auto) 0.0 (0.0-0.2) /100WBC Smear Tech's Comments VERIFIED Sodium 140 (135-145) mmol/L Potassium 3.0 L (3.3-5.1) mmol/L Chloride 116 H (96-108) mmol/L Carbon Dioxide 21 L (22-29) mmol/L Anion Gap 6 L (12-20) BUN 6 L (9-16) mg/dL Creatinine 0.84 (0.5-1.4) mg/dL Estim Creat Clear Calc 70.4 Estimated GFR > 60 Random Glucose 106 D (60-115) mg/dL Calcium 5.8 L* D (8.4-10.2) mg/dL Phosphorus 2.0 L (2.7-4.5) mg/dL Magnesium (1.6-2.6) mg/dL Total Bilirubin 0.8 (0.0-1.0) mg/dL Direct Bilirubin 0.4 (0.0-0.5) mg/dL AST 31 D (5-31) U/L ALT 20 (0-31) U/L Alkaline Phosphatase 46 (39-117) U/L Total Protein 5.7 L (6.5-8.0) g/dL Albumin 1.4 L D (3.5-5.0) g/dL Urine Color DARK YELLOW Urine Appearance CLEAR Urine pH 6.5 (5.0-8.0) Ur Specific [place] 1.025 (1.005-1.025) Urine Protein 1+ H (NEG-TRACE) MG/DL Urine Glucose (UA) NEG (NEG) MG/DL Urine Ketones 5 (NEG) MG/DL Urine Blood NEG (NEG) Urine Nitrite NEG (NEG) Ur Leukocyte Esterase NEG (NEG) Urine RBC 0-2 (0) /HPF Urine WBC 0-2 (0-4) /HPF Ur Squamous Epith Cells 1+ /LPF Ur Renal Epithelial Cell TRACE /LPF Urine Bacteria TRACE /LPF Hyaline Casts 1-4 /LPF Urine Mucus TRACE /LPF COVID-19 (RYAN) (Negative) COVID-19 Clin Com 11/03/20 11/03/20 Range/Units 18:30 20:57 WBC (4.8-10.8) X10*3/uL RBC (4.20-5.50) X10*6/uL Hgb (12.0-16.0) g/dl Hct (37-47) % MCV (80-98) fL MCH (27.0-33.0) pg MCHC (31.0-35.0) g/dl RDW (11.0-16.0) % Plt Count (160-400) X10*3/uL MPV (9.4-12.3) fL Immature Gran % (Auto) (0.0-0.4) % Neut % (Auto) (45-73) % Lymph % (Auto) (20-40) % [place] % (Auto) (2-11) % Eos % (Auto) (0-4) % Baso % (Auto) (0-2) % Lymph # (Auto) (1.2-4.9) X10*3/uL [place] # (Auto) (0.1-1.2) X10*3/uL Eos # (Auto) (0.0-0.4) X10*3/uL Baso # (Auto) (0.0-0.2) X10*3/uL Abs Immat Gran (auto) (0.00-0.03) X10*3/uL Absolute Neuts (auto) (2.0-8.3) X10*3/uL Absolute Nucleated RBC (0.0-0.012) X10*3/uL Nucleated RBC % (auto) (0.0-0.2) /100WBC Smear Tech's Comments Sodium 140 (135-145) mmol/L Potassium 2.9 L (3.3-5.1) mmol/L Chloride 116 H (96-108) mmol/L Carbon Dioxide 21 L (22-29) mmol/L Anion Gap 6 L (12-20) BUN 6 L (9-16) mg/dL Creatinine 0.82 (0.5-1.4) mg/dL Estim Creat Clear Calc 72.1 Estimated GFR > 60 Random Glucose 116 H (60-115) mg/dL Calcium 6.1 L (8.4-10.2) mg/dL Phosphorus (2.7-4.5) mg/dL Magnesium 1.6 (1.6-2.6) mg/dL Total Bilirubin (0.0-1.0) mg/dL Direct Bilirubin (0.0-0.5) mg/dL AST (5-31) U/L ALT (0-31) U/L Alkaline Phosphatase (39-117) U/L Total Protein (6.5-8.0) g/dL Albumin (3.5-5.0) g/dL Urine Color Urine Appearance Urine pH (5.0-8.0) Ur Specific [place] (1.005-1.025) Urine Protein (NEG-TRACE) MG/DL Urine Glucose (UA) (NEG) MG/DL Urine Ketones (NEG) MG/DL Urine Blood (NEG) Urine Nitrite (NEG) Ur Leukocyte Esterase (NEG) Urine RBC (0) /HPF Urine WBC (0-4) /HPF Ur Squamous Epith Cells /LPF Ur Renal Epithelial Cell /LPF Urine Bacteria /LPF Hyaline Casts /LPF Urine Mucus /LPF COVID-19 (RYAN) Negative (Negative) COVID-19 Clin Com See Note <Tami Maher DO - Last Filed: 11/03/20 19:14> ECG Data Attestation: I personally reviewed and interpreted this ECG as follows: <Tami Maher DO - Last Filed: 11/03/20 19:14> Interpretation: Rate: 81 Rhythm: NSR [place]: left Normal P waves. Normal SONYA. low voltage QRS complex. ST T wave : nonspecific flattening qTC: normal prior studies: no acute ischemia The study has been interpreted contemporaneously by me. . <Tami Maher DO - Last Filed: 11/03/20 19:14> Discharge Plan Discharge Clinical Impression: Weakness, Acute hypokalemia, Hypocalcemia <Junior Anthony MD - Last Filed: 11/11/20 08:24> Patient Disposition: Admitted As Inpatient <Junior Anthony MD - Last Filed: 11/11/20 08:24> Interventions: Admission Worksheet (ED) Last Done: 11/04/20 01:00 <Junior Anthony MD - Last Filed: 11/11/20 08:24> Discharge Date/Time: 11/04/20 01:00 <Junior Anthony MD - Last Filed: 11/11/20 08:24>
[2020-11-03] MEDS: ondansetron HCL 4 MG/2 ML VIAL IVPUSH ×2 (12:10→15:57)
[2020-11-03] MEDS: 0.9 % Sodium Chloride 1,000 ML 999 ML IVCONT ×2 (12:12→16:11)
--- NOTE | 2020-11-03 12:14 | PC.NURSE ---
Port to right chest accessed with no difficulty. Blood obtained from site and medications administered. Pt reports that she has been unable to keep anything down except for a few bites over [place] past couple of weeks.
[2020-11-03 12:41] LABS: Basophils Percent Auto 0.8 % (0-2); Eosinophils Percent Auto 0.8 % (0-4); Hematocrit 28.3 % (37-47); Lymphocytes Absolute Auto 0.6 X10*3/uL (1.2-4.9); Lymphocytes Percent Auto 42.6 % (20-40); MANUAL DIFF FLAG SCAN; Mean Corpuscular HGB Conc 31.8 g/dl (31.0-35.0); Mean Corpuscular Hemoglobin 30.9 pg (27.0-33.0); Mean Corpuscular Volume 97.3 fL (80-98); Mean Platelet Volume 11.2 fL (9.4-12.3); Monocytes Absolute Auto 0.1 X10*3/uL (0.1-1.2); Monocytes Percent Auto 4.7 % (2-11); Neutrophils Absolute Auto 0.7 X10*3/uL (2.0-8.3); Neutrophils Percent Auto 51.1 % (45-73); Red Blood Count 2.91 X10*6/uL (4.20-5.50); Red Cell Distribution Width 17.5 % (11.0-16.0); SCAN SMEAR FLAG 1; White Blood Count 1.3 X10*3/uL (4.8-10.8)
[2020-11-03 12:42] LABS: Platelet Count 66 X10*3/uL (160-400)
[2020-11-03 12:47] VITALS: BP 96/46; PULSE 80; RESP 18; TEMP 36.6; O2SAT 98
[2020-11-03 13:04] LABS: SLIDE REVIEW VERIFIED
--- NOTE | 2020-11-03 13:25 | PC.NURSE ---
Pt tolerating mall sips of apple juice
[2020-11-03 14:07] LABS: Alanine Aminotransferase 20 U/L (0-31); Albumin Level 1.4 g/dL (3.5-5.0); Alkaline Phosphatase 46 U/L (39-117); Anion Gap 6 (12-20); Aspartate Amino Transferase 31 U/L (5-31); Bilirubin Direct 0.4 mg/dL (0.0-0.5); Bilirubin Total 0.8 mg/dL (0.0-1.0); Blood Urea Nitrogen 6 mg/dL (9-16); Calcium 5.8 mg/dL (8.4-10.2); Carbon Dioxide 21 mmol/L (22-29); Chloride 116 mmol/L (96-108); Creatinine Clr Calc Pharmacy 70.4; Estimated Glomerular Filt Rate > 60; Glucose Random 106 mg/dL (60-115); Sodium 140 mmol/L (135-145); Total Protein 5.7 g/dL (6.5-8.0)
[2020-11-03 14:11] VITALS: BP 98/52; PULSE 92; RESP 16; TEMP 36.6; O2SAT 99
[2020-11-03 15:02] LABS: Glucose Urine UA NEG (NEG); Leukocyte Esterase Urine NEG (NEG); Nitrite Urine NEG (NEG); PH 6.5 (5.0-8.0); Specific Gravity - Urine 1.025 (1.005-1.025); Urine Blood NEG (NEG); Urine Ketones 5 MG/DL (NEG); Urine Protein 1+ MG/DL (NEG-TRACE)
[2020-11-03 15:03] LABS: Appearance Urine CLEAR; Color Urine DARK YELLOW
[2020-11-03 15:12] LABS: Bacteria Urine TRACE /LPF; Mucus Urine TRACE /LPF; RBC Urine 0-2 /HPF (0); Renal Epithelial Cells Urine TRACE /LPF; Squamous Epithelial Cell Urine 1+ /LPF; WBC Urine 0-2 /HPF (0-4)
[2020-11-03] MEDS: Potassium Chloride/H20 10 MEQ/100 ML PIGGYBACK 100 MEQ IV (15:58)
[2020-11-03] MEDS: Calcium Gluconate/NaCl,Iso-Osm 2 GM/100 ML PLAST..BAG IV ×2 (16:09→20:50)
[2020-11-03] MEDS: Magnesium Sulfate/H2O 2 GM/50 ML PIGGYBACK IV (16:09)
[2020-11-03 16:12] VITALS: BP 102/60; PULSE 88; RESP 18; TEMP 36.4; O2SAT 97
--- NOTE | 2020-11-03 16:17 | PC.NURSE ---
VSS pt remain mildly nauseated but able to take small sips of fluids with zofran.
--- NOTE | 2020-11-03 17:01 | ECG_ITS ---
Test Reason : GENERAL MEDICAL Blood Pressure : / mmHG Vent. Rate : 081 BPM Atrial Rate : 081 BPM P-R Int : 170 ms QRS Dur : 072 ms QT Int : 424 ms P-R-T Axes : 100 -11 -28 degrees QTc Int : 492 ms Sinus rhythm with Premature atrial complexes Low voltage QRS Cannot rule out Anterior infarct , age undetermined Abnormal ECG When compared with ECG of 25-OCT-2020 12:48, Premature atrial complexes are now Present Referred By: Tami Maher Electronically Signed By:Kota Ramos
--- NOTE | 2020-11-03 18:31 | PC.NURSE ---
Repeat labs obtained from port after vigorous flushing and wast tubes.
[2020-11-03 19:03] LABS: Anion Gap 6 (12-20); Blood Urea Nitrogen 6 mg/dL (9-16); Calcium 6.1 mg/dL (8.4-10.2); Carbon Dioxide 21 mmol/L (22-29); Chloride 116 mmol/L (96-108); Creatinine Clr Calc Pharmacy 72.1; Estimated Glomerular Filt Rate > 60; Glucose Random 116 mg/dL (60-115); Magnesium 1.6 mg/dL (1.6-2.6); Potassium 2.9 mmol/L (3.3-5.1); Sodium 140 mmol/L (135-145)
[2020-11-03 21:24] LABS: COVID-19 Test Negative (Negative); IDNOW Serial# 08D9AD1C
[2020-11-03] MEDS: KCl 40 mEq in 0.9 % Sodium Chl 40 MEQ/1,000 ML IV.SOLN 250 MEQ IVCONT (21:26)
[2020-11-03 23:27] VITALS: BP 132/64; PULSE 74; RESP 16; TEMP 36.6; O2SAT 99
[2020-11-03 23:31] LABS: Glucose, Whole Blood 89 mg/dL (60-115)
[2020-11-04] MEDS: ondansetron HCL 4 MG/2 ML VIAL IVPUSH ×2 (00:12→16:37)
[2020-11-04 00:41] VITALS: BP 108/56; PULSE 76; RESP 19; TEMP 36.7; O2SAT 99
[2020-11-04] MEDS: KCl 40 mEq in 0.9 % Sodium Chl 40 MEQ/1,000 ML IV.SOLN 250 MEQ IVCONT ×3 (01:31→18:28)
[2020-11-04] MEDS: Heparin Sodium,Porcine 5,000 UNIT/ML VIAL 5000 UNIT SUBCUT ×2 (01:38→16:21)
[2020-11-04 02:18] LABS: Anion Gap 11 (12-20); Blood Urea Nitrogen 6 mg/dL (9-16); Calcium 6.6 mg/dL (8.4-10.2); Carbon Dioxide 17 mmol/L (22-29); Chloride 116 mmol/L (96-108); Creatinine Clr Calc Pharmacy 72.1; Estimated Glomerular Filt Rate > 60; Glucose Random 88 mg/dL (60-115); Potassium 3.6 mmol/L (3.3-5.1); Sodium 140 mmol/L (135-145)
[2020-11-04 03:50] VITALS: BP 106/52; PULSE 84; RESP 20; TEMP 36.4; O2SAT 100
[2020-11-04 05:06] LABS: Eosinophils Percent Auto 1.2 % (0-4); Hematocrit 24.5 % (37-47); Lymphocytes Absolute Auto 0.5 X10*3/uL (1.2-4.9); MANUAL DIFF FLAG SCAN; Mean Corpuscular HGB Conc 32.7 g/dl (31.0-35.0); Mean Corpuscular Hemoglobin 32.3 pg (27.0-33.0); Mean Corpuscular Volume 98.8 fL (80-98); Mean Platelet Volume 10.5 fL (9.4-12.3); Monocytes Percent Auto 3.6 % (2-11); Neutrophils Absolute Auto 0.3 X10*3/uL (2.0-8.3); Neutrophils Percent Auto 36.2 % (45-73); Red Blood Count 2.48 X10*6/uL (4.20-5.50); Red Cell Distribution Width 17.7 % (11.0-16.0); SCAN SMEAR FLAG 1
[2020-11-04 05:22] LABS: Platelet Count 61 X10*3/uL (160-400)
[2020-11-04 05:25] LABS: White Blood Count 0.8 X10*3/uL (4.8-10.8)
--- NOTE | 2020-11-04 05:27 | MHC.PIE ---
p; lab critical WBC 0.8 i; dr peoples notified e; will cont to monitor
[2020-11-04 05:34] LABS: SLIDE REVIEW VERIFIED
[2020-11-04 05:49] LABS: Anion Gap 6 (12-20); Blood Urea Nitrogen 5 mg/dL (9-16); Calcium 6.1 mg/dL (8.4-10.2); Carbon Dioxide 19 mmol/L (22-29); Chloride 118 mmol/L (96-108); Creatinine Clr Calc Pharmacy 79.9; Estimated Glomerular Filt Rate > 60; Glucose Random 81 mg/dL (60-115); Potassium 3.7 mmol/L (3.3-5.1); Sodium 139 mmol/L (135-145)
--- NOTE | 2020-11-04 05:58 | P.HPHOSP_ITS ---
History of Present Illness Date of Service: 11/04/20 Chief Complaint: Nausea vomiting This is a 75-year-old female with past medical history of multiple myeloma, diabetes, HTN, hypercalcemia, hyperlipidemia, RADHA, pancytopenia, subclinical hypothyroidism, who presents to the hospital with complaints of nausea vomiting. Patient was diagnosed with multiple myeloma recently, underwent chemotherapy 13 days ago, presents today with continuous nausea vomiting. She reports that she started having nausea vomiting since Monday, worsened today. Associated with some abdominal pain intermittently, has no diarrhea or constipation. Patient received Zometa recently for treamtnet of hypercalcemia and MM. Denies any chest pain, headache, change in vision, no shortness of breath, no urinary symptoms and no lower extremity edema. On arrival patient hemodynamically stable with No significant abnormal vitals Labs are significant for WBC count of 1.3, hemoglobin of 9.0, absolute neutrophil count of 0.7, sodium of 140, potassium 3.0, calcium level of 5.8, phosphorus level of 2.0, magnesium of 1.6, UA that is positive for protein otherwise negative, COVID-19 negative. Review of Systems Review of Systems: Yes all other systems are reviewed and are negative [facility] Medical History Diabetes mellitus type 2, controlled, without complications Essential hypertension Hypercalcemia Hyperlipidemia, unspecified Hypoglycemia unawareness associated with type 2 diabetes mellitus Obstructive sleep apnea Pancytopenia Subclinical hyperthyroidism Family History Father No problems noted. 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 If so, by whom?: No Do you feel safe in your current relationship?: No Current Relationship Is there a partner from a previous relationship who is making you feel unsafe now?: No Are you made to feel afraid or neglected: No Advance Directives: Yes Advance Directives Information Provided: No Advance Directives on File: Yes Advance Directives Date on File: 10/09/20 Do you have thoughts of harming others: None Do you have a plan to hurt others: No Plan Recently lost weight without trying: Yes service: No Current occupational status: retired Meds Allergies Allergy/AdvReac Type Severity Reaction Status Date / Time codeine [CODEINE] Allergy Intermediate NAUSEA & Verified 10/25/20 10:17 VOMITING, vomiting lisinopril [LISINOPRIL] Allergy Intermediate COUGH, Verified 10/25/20 10:17 Coughing sulfamethoxazole Allergy Intermediate RASH Verified 10/25/20 10:17 [From BACTRIM] Active Medications: Current Medications Generic Name Dose Route Start Last Admin Trade Name Freq PRN Reason Stop Dose Admin Acetaminophen 650 mg 11/04/20 00:22 Acetaminophen 325 Mg Tablet PO Q6H PRN Pain, Mild (Pain Scale 1-3) Al Hydroxide/Mg Hydroxide 30 ml 11/04/20 00:22 Magnesium Hydrox/Alum Hydrox 30 Ml Oral.Susp PO Q4H PRN Heartburn/Nausea Allopurinol 300 mg 11/04/20 09:00 Allopurinol 300 Mg Tablet PO DAILY [facility] Aspirin 81 mg 11/04/20 09:00 Aspirin 81 Mg Tab.Chew PO DAILY [facility] Bisacodyl 10 mg 11/03/20 22:18 Bisacodyl 10 Mg Supp.Rect [place] DAILY PRN constipation Docusate Sodium 100 mg 11/04/20 09:00 Docusate Sodium 100 Mg Capsule PO BID [facility]1983 Docusate Sodium 100 mg 11/04/20 00:22 Docusate Sodium 100 Mg Capsule PO DAILY PRN Constipation Furosemide 20 mg 11/04/20 09:00 Furosemide 20 Mg Tablet PO DAILY [facility] Protocol Heparin Sodium (Porcine) 5,000 unit 11/04/20 02:00 11/04/20 01:38 Heparin Sodium,Porcine 5,000 Unit/Ml Vial SUBCUT 5,000 unit Q12H DONAVAN Administration Potassium Chloride/Sodium Chloride 40 meq in 1,000 mls @ 250 mls/hr 11/03/20 19:15 11/04/20 05:03 IVCONT 250 mls/hr .Q4H [facility] Administration Insulin Human Lispro 0 unit 11/04/20 07:30 Insulin Lispro 100 Unit/Ml 3 [facility] Insulin Human Lispro 0 unit 11/04/20 07:30 Insulin Lispro 100 Unit/Ml 3 Ml Vial [facility] Protocol Omeprazole 20 mg 11/04/20 09:00 Omeprazole 20 Mg Capsule.Dr PO DAILY [facility] Ondansetron HCl 4 mg 11/03/20 21:55 11/04/20 00:12 Ondansetron Hcl 4 Mg/2 Ml Vial IVPUSH 4 mg Q8H PRN Administration Nausea and Vomiting Polyethylene Glycol 17 gm 11/03/20 22:18 Polyethylene Glycol 3350 17 Gm Powd.Pack PO DAILY PRN Constipation Prochlorperazine Edisylate 5 mg 11/03/20 22:39 Prochlorperazine Edisylate 10 Mg/2 Ml Vial IVPUSH Q6H PRN Nausea and Vomiting Sodium Chloride 3 ml 11/04/20 00:22 11/04/20 01:33 0.9 % Sodium Chloride Flush 3 Ml Syringe IVFLUSH Not Given QSHIFT [facility] Tramadol HCl 50 mg 11/03/20 22:18 Tramadol Hcl 50 Mg Tablet PO Q12H PRN pain Home Medications Medication Instructions Recorded Confirmed Last Taken Type allopurinol 300 mg tablet 300 mg PO DAILY 04/22/20 11/03/20 10/07/20 History aspirin 81 mg chewable tablet 81 mg PO DAILY 04/22/20 11/03/20 10/07/20 History docusate sodium 100 mg capsule 100 mg PO BID 04/22/20 11/03/20 10/07/20 History insulin aspart U-100 100 unit/mL 2 - 12 unit SUBCUT TID 04/22/20 11/03/20 Unknown History (3 mL) subcutaneous pen omeprazole 20 mg capsule,delayed 20 mg PO DAILY 04/22/20 11/03/20 10/07/20 History release amlodipine 5 mg tablet 5 mg PO DAILY 09/30/20 11/03/20 10/07/20 History insulin detemir U-100 100 unit/mL 20 unit SUBCUT BEDTIME ml 09/30/20 11/03/20 10/07/20 History (3 mL) subcutaneous pen polyethylene glycol 3350 [Miralax] 17 g PO DAILY PRN 10/06/20 11/03/20 10/07/20 History bisacodyl 1 supp FL DAILY PRN 10/09/20 11/03/20 Unknown History sennosides [senna] 8.6 mg PO BEDTIME PRN 10/09/20 11/03/20 10/07/20 History tramadol 1 tab PO Q12H PRN 10/20/20 11/03/20 Unknown History furosemide 20 mg tablet 20 mg PO DAILY 10/29/20 11/03/20 Unknown History Physical Exam Vital Signs and Narrative: Vital Signs: Last Vital Signs Temp 97.5 F 11/04/20 03:50 Pulse 84 11/04/20 03:50 Resp 20 11/04/20 03:50 BP 106/52 L 11/04/20 03:50 Pulse Ox 100 11/04/20 03:50 Body Mass Index 38.2 Const: General: cooperative and no acute distress Orientation/consciousness: patient oriented x3 Eyes: General: appearance normal, both eyes and all related structures Resp: Effort & Inspection: normal respiratory effort and able to speak in complete sentences Cardio: Rate: regular rate Rhythm: regular rhythm GI: Palpation (GI): Soft to palpation Auscultation: normal bowel sounds Skin: General skin exam: no rashes or lesions noted Neuro: General: patient oriented x3 Cognition (Neuro): normal cognition Extrem: General: Yes normal to inspection and Yes no pedal edema Results Labs CBC and Chem 7: 11/04/20 04:18 11/04/20 04:18 Labs: Laboratory Results - last 24 hr 11/03/20 11/03/20 11/03/20 12:03 13:22 14:52 MCV 97.3 MCH 30.9 MCHC 31.8 RDW 17.5 H Plt Count 66 L MPV 11.2 Immature Gran % (Auto) 0.0 Neut % (Auto) 51.1 Lymph % (Auto) 42.6 H [place] % (Auto) 4.7 Eos % (Auto) 0.8 Baso % (Auto) 0.8 Lymph # (Auto) 0.6 L [place] # (Auto) 0.1 Eos # (Auto) 0.0 Baso # (Auto) 0.0 Abs Immat Gran (auto) 0.00 Absolute Neuts (auto) 0.7 L Absolute Nucleated RBC 0.000 Nucleated RBC % (auto) 0.0 Smear Tech's Comments VERIFIED Anion Gap 6 L Estim Creat Clear Calc 70.4 Estimated GFR > 60 POC Glucose Random Glucose 106 D Calcium 5.8 L* D Phosphorus 2.0 L Magnesium Total Bilirubin 0.8 Direct Bilirubin 0.4 AST 31 D ALT 20 Alkaline Phosphatase 46 Total Protein 5.7 L Albumin 1.4 L D Urine Color DARK YELLOW Urine Appearance CLEAR Urine pH 6.5 Ur Specific [place] 1.025 Urine Protein 1+ H Urine Glucose (UA) NEG Urine Ketones 5 Urine Blood NEG Urine Nitrite NEG Ur Leukocyte Esterase NEG Urine RBC 0-2 Urine WBC 0-2 Ur Squamous Epith Cells 1+ Ur Renal Epithelial Cell TRACE Urine Bacteria TRACE Hyaline Casts 1-4 Urine Mucus TRACE COVID-19 (RYAN) COVID-19 AMT ([employer]) 11/03/20 11/03/20 11/03/20 18:30 20:57 23:25 MCV MCH MCHC RDW Plt Count MPV Immature Gran % (Auto) Neut % (Auto) Lymph % (Auto) [place] % (Auto) Eos % (Auto) Baso % (Auto) Lymph # (Auto) [place] # (Auto) Eos # (Auto) Baso # (Auto) Abs Immat Gran (auto) Absolute Neuts (auto) Absolute Nucleated RBC Nucleated RBC % (auto) Smear Tech's Comments Anion Gap 6 L Estim Creat Clear Calc 72.1 Estimated GFR > 60 POC Glucose 89 Random Glucose 116 H Calcium 6.1 L Phosphorus Magnesium 1.6 Total Bilirubin Direct Bilirubin AST ALT Alkaline Phosphatase Total Protein Albumin Urine Color Urine Appearance Urine pH Ur Specific [place] Urine Protein Urine Glucose (UA) Urine Ketones Urine Blood Urine Nitrite Ur Leukocyte Esterase Urine RBC Urine WBC Ur Squamous Epith Cells Ur Renal Epithelial Cell Urine Bacteria Hyaline Casts Urine Mucus COVID-19 (RYAN) Negative COVID-19 Clin Com See Note 11/04/20 11/04/20 11/04/20 01:10 04:18 04:18 MCV 98.8 H MCH 32.3 MCHC 32.7 RDW 17.7 H Plt Count 61 L MPV 10.5 Immature Gran % (Auto) 0.0 Neut % (Auto) 36.2 L Lymph % (Auto) 59.0 H [place] % (Auto) 3.6 Eos % (Auto) 1.2 Baso % (Auto) 0.0 Lymph # (Auto) 0.5 L [place] # (Auto) 0.0 L Eos # (Auto) 0.0 Baso # (Auto) 0.0 Abs Immat Gran (auto) 0.00 Absolute Neuts (auto) 0.3 L Absolute Nucleated RBC 0.000 Nucleated RBC % (auto) 0.0 Smear Tech's Comments VERIFIED Anion Gap 11 L 6 L Estim Creat Clear Calc 72.1 79.9 Estimated GFR > 60 > 60 POC Glucose Random Glucose 88 81 Calcium 6.6 L D 6.1 L D Phosphorus Magnesium Total Bilirubin Direct Bilirubin AST ALT Alkaline Phosphatase Total Protein Albumin Urine Color Urine Appearance Urine pH Ur Specific [place] Urine Protein Urine Glucose (UA) Urine Ketones Urine Blood Urine Nitrite Ur Leukocyte Esterase Urine RBC Urine WBC Ur Squamous Epith Cells Ur Renal Epithelial Cell Urine Bacteria Hyaline Casts Urine Mucus COVID-19 (RYAN) COVID-19 Clin Com Assessment and Plan (1) Acute hypokalemia: Status: Acute (2) Hypocalcemia: Status: Acute (3) Multiple myeloma: Qualifiers: Multiple myeloma remission status: not in remission Qualified Code(s): C90.00 - Multiple myeloma not having achieved remission Status: Acute (4) Pancytopenia: Status: Acute (5) Intractable nausea and vomiting: Status: Acute This is a 75-year-old female with past medical history of multiple myeloma recently underwent 1 treatment of ZOMETA who presents to the hospital with nausea vomiting since Monday. # intractable nausea vomiting - possibly related to chemotherapy treatment - intractable - not responding to Zofran - will start on Compazine which she appears to have responded better to - supportive measures # hypocalcemia - patient had hypercalcemia secondary to multiple myeloma according to notes and labs and was being evaluated by Hematology-Oncology and was recently treated for it with zometa - returns today with hypoglycemia with this calcium in the 5s - was repleted with multiple doses of calcium gluconate - will follow calcium level - will stop allopurinol # hypophosphatemia, hypokalemia - possibly secondary to nausea and vomiting - repleted - will follow levels # pancytopenia - most likely secondary to chemotherapy treatment - will monitor for neutropenic fever and neutrophil levels - Hematology-Oncology consulted # multiple myeloma - will consult Hematology-Oncology for further evaluation and management # diabetes - diabetic diet - low-dose sliding scale insulin # hypertension - stable DVT prophylaxis heparin subQ
[2020-11-04] MEDS: cefEPime HCl 1 GM in 0.9 % Sodium Chloride 50 ML IV ×3 (06:44→22:10)
[2020-11-04 07:41] VITALS: BP 102/53; PULSE 76; RESP 19; TEMP 36.2; O2SAT 99
[2020-11-04] MEDS: Calcium Gluconate/NaCl,Iso-Osm 2 GM/100 ML PLAST..BAG IV (07:54)
[2020-11-04 08:08] LABS: Glucose, Whole Blood 78 mg/dL (60-115)
--- NOTE | 2020-11-04 09:05 | P.CDIC_ITS ---
CDI Concurrent Query Service Date: 11/05/20 Documentation Clarification: Please clarify if you are treating a proba ble/suspected/likely or confirmed: Malnourished, mild, moderate or severe Please specify if known or other Provider Response: Mild Protein-Calorie Malnutrition PLEASE DO NOT DELETE/MODIFY EXISTING CONTENT Additional information is needed in order to code to the highest accuracy and appropriate Severity of Illness (SOI). Please clarify the information noted below in your progress notes and discharge summary. Risk Factors/Clinical Indicators/Treatments Total protein 5.7 Albumin 1.4 L D Multiple Myeloma, weakness, dehydrated, nausea with vomiting, on chemotherapy CDS: Soraida Tuttle CCS, CDIS Contact Number: [phone] Please Review the information above and exercise your independent professional judgment in responding to the query. If you concur, pleas document in the PROGRESS NOTES and DISCHARGE SUMMARY. If you do not agree with the query, please document in the query above. THIS QUERY IS PART OF THE PERMANENT MEDICAL RECORD
[2020-11-04] MEDS: Furosemide 20 MG TABLET PO (10:03)
[2020-11-04] MEDS: Docusate Sodium 100 MG CAPSULE PO ×2 (10:04→22:11)
[2020-11-04] MEDS: Potassium Phosphate 30 MMOL in 0.9 % Sodium Chloride 500 ML 85 MMOL IV (10:04)
[2020-11-04] MEDS: Omeprazole 20 MG CAPSULE.DR PO (10:05)
[2020-11-04] MEDS: Aspirin 81 MG TAB.CHEW PO (10:05)
[2020-11-04 11:31] VITALS: BP 111/56; PULSE 87; RESP 20; TEMP 36.6; O2SAT 100
[2020-11-04 11:51] LABS: Glucose, Whole Blood 98 mg/dL (60-115)
--- NOTE | 2020-11-04 13:04 | MHC.CM.PN ---
nurse prompt care rn note electronic medical record reviewed along with case discussed with staff nurse, hospitalist and patient educated about the importance of having a hcp and patient reported that she has one , naming her daughter patti copy requested to be brought in, patient lives at home with her daughter whom is her primary care provider, she requires assistance with all adls except eating and with her mobility , she reported that at home she has the following that she owns (3 wheeled walker. cane , commode, shower chair , shower bars , wheelchair, she is followed by dr rusty byrne and has been doing mostly telephone calls, [place] also [place] [facility] and had just recenltyl recieved a iv zomatolifer transfusion patient has a line for infusions , discharge she is active with [facility] for NURsing and home PT bid will resumption these services aT DISCHARGE , INIATED REFERRAL BACK TO THEM M medicare imm explained and given to patient requested copy of her health care proxy transportation to be determined possibly action papito
--- NOTE | 2020-11-04 14:14 | MHC.CLN ---
RE: CONSULT PT WITH ACUTE N/V X 1 WEEK NO SIGNIFICANT WT LOSS RECOMMEND ENSURE CLEAR TID TO INCREASE KCALS MONITOR PO INTAKE CLOSELY
[2020-11-04 15:33] VITALS: BP 117/60; PULSE 83; RESP 18; TEMP 36.9; O2SAT 99
[2020-11-04 16:10] LABS: Glucose, Whole Blood 102 mg/dL (60-115)
[2020-11-04 19:15] VITALS: BP 93/53; PULSE 84; RESP 16; TEMP 36.9; O2SAT 98
[2020-11-04 20:10] LABS: Anion Gap 9 (12-20); Blood Urea Nitrogen 6 mg/dL (9-16); Calcium 6.5 mg/dL (8.4-10.2); Carbon Dioxide 17 mmol/L (22-29); Chloride 118 mmol/L (96-108); Creatinine Clr Calc Pharmacy 74.9; Estimated Glomerular Filt Rate > 60; Glucose Random 121 mg/dL (60-115); Potassium 4.2 mmol/L (3.3-5.1); Sodium 140 mmol/L (135-145)
[2020-11-04 20:29] LABS: Glucose, Whole Blood 103 mg/dL (60-115)
[2020-11-05] VITALS (9 sets, daily range): BP systolic 95–121; BP diastolic 51–63; PULSE 77–91; RESP 15–18; TEMP 35.9–36.7; O2SAT 96–100
[2020-11-05] MEDS: Heparin Sodium,Porcine 5,000 UNIT/ML VIAL 5000 UNIT SUBCUT ×2 (02:27→14:56)
[2020-11-05] MEDS: 0.9 % Sodium Chloride Flush 3 ML SYRINGE IVFLUSH ×4 (02:28→21:36)
[2020-11-05] MEDS: cefEPime HCl 1 GM in 0.9 % Sodium Chloride 50 ML IV ×3 (05:53→21:36)
[2020-11-05 08:30] LABS: Glucose, Whole Blood 80 mg/dL (60-115)
[2020-11-05] MEDS: Omeprazole 20 MG CAPSULE.DR PO (09:18)
[2020-11-05] MEDS: Furosemide 20 MG TABLET PO (09:19)
[2020-11-05] MEDS: Aspirin 81 MG TAB.CHEW PO (09:19)
[2020-11-05] MEDS: Prochlorperazine Edisylate 10 MG/2 ML VIAL 5 MG IVPUSH ×2 (09:57→17:46)
[2020-11-05 10:31] LABS: Hematocrit 25.4 % (37-47); Hemoglobin 8.3 g/dl (12.0-16.0); Mean Corpuscular HGB Conc 32.7 g/dl (31.0-35.0); Mean Corpuscular Hemoglobin 32.3 pg (27.0-33.0); Mean Corpuscular Volume 98.8 fL (80-98); Red Blood Count 2.57 X10*6/uL (4.20-5.50)
[2020-11-05 10:47] LABS: Platelet Count 65 X10*3/uL (160-400)
[2020-11-05 11:04] LABS: White Blood Count 0.9 X10*3/uL (4.8-10.8)
--- NOTE | 2020-11-05 11:46 | HO.PM.IMPN ---
Subjective Subjective Date of Service: 11/05/20 Interval History: Follow up for n/v, Physical Exam Vital Signs: Vital Signs: Last Vital Signs Temp 97.6 F 11/05/20 11:22 Pulse 83 11/05/20 11:22 Resp 15 11/05/20 11:22 BP 95/63 11/05/20 11:22 Pulse Ox 100 11/05/20 11:22 Body Mass Index 38.2 General: AO X 3, no acute distress Resp: CTA bilateral CVS: S1,S2,RRR, 2+ edema GI: +BS, NT, no distention Skin: No rash Neuro: motor grossly intact Psych: appropriate affect Objective Data Current Medications Generic Name Dose Route Start Last Admin Trade Name Freq PRN Reason Stop Dose Admin Acetaminophen 650 mg 11/04/20 00:22 Acetaminophen 325 Mg Tablet PO Q6H PRN Pain, Mild (Pain Scale 1-3) Al Hydroxide/Mg Hydroxide 30 ml 11/04/20 00:22 Magnesium Hydrox/Alum Hydrox 30 Ml Oral.Susp PO Q4H PRN Heartburn/Nausea Aspirin 81 mg 11/04/20 09:00 11/05/20 09:19 Aspirin 81 Mg Tab.Chew PO 81 mg DAILY DONAVAN Administration Bisacodyl 10 mg 11/03/20 22:18 Bisacodyl 10 Mg Supp.Rect [place] DAILY PRN constipation Docusate Sodium 100 mg 11/04/20 09:00 11/05/20 09:19 Docusate Sodium 100 Mg Capsule PO Not Given BID DONAVAN Docusate Sodium 100 mg 11/04/20 00:22 Docusate Sodium 100 Mg Capsule PO DAILY PRN Constipation Furosemide 20 mg 11/04/20 09:00 11/05/20 09:19 Furosemide 20 Mg Tablet PO 20 mg DAILY DONAVAN Administration Protocol Heparin Sodium (Porcine) 5,000 unit 11/04/20 02:00 11/05/20 02:27 Heparin Sodium,Porcine 5,000 Unit/Ml Vial SUBCUT 5,000 unit Q12H DONAVAN Administration Cefepime HCl 1 gm/ Sodium 50 mls @ 100 mls/hr 11/04/20 06:00 11/05/20 06:30 Chloride IV Infused Q8H DONAVAN Infusion Insulin Human Lispro 0 unit 11/04/20 07:30 11/05/20 09:09 Insulin Lispro 100 Unit/Ml 3 Ml Vial SUBCUT Not Given QIDACHS [facility] Protocol Omeprazole 20 mg 11/04/20 09:00 11/05/20 09:18 Omeprazole 20 Mg Capsule. PO 20 mg DAILY DONAVAN Administration Ondansetron HCl 4 mg 11/03/20 21:55 11/04/20 16:37 Ondansetron Hcl 4 Mg/2 Ml Vial IVPUSH 4 mg Q8H PRN Administration Nausea and Vomiting Polyethylene Glycol 17 gm 11/03/20 22:18 Polyethylene Glycol 3350 17 Gm Powd.Pack PO DAILY PRN Constipation Prochlorperazine Edisylate 5 mg 11/03/20 22:39 11/05/20 09:57 Prochlorperazine Edisylate 10 Mg/2 Ml Vial IVPUSH 5 mg Q6H PRN Administration Nausea and Vomiting Sodium Chloride 3 ml 11/04/20 00:22 11/05/20 09:22 0.9 % Sodium Chloride Flush 3 Ml Syringe IVFLUSH 3 ml QSHIFT DONAVAN Administration Tramadol HCl 50 mg 11/03/20 22:18 Tramadol Hcl 50 Mg Tablet PO Q12H PRN pain Labs CBC & Chem 7: 11/05/20 10:10 11/04/20 19:14 Assessment and Plan (1) Acute hypokalemia: Status: Acute (2) Hypocalcemia: Status: Acute (3) Multiple myeloma: Status: Acute (4) Pancytopenia: Status: Acute (5) Intractable nausea and vomiting: Status: Acute Assessment and Plan: 75-year-old female with past medical history of multiple myeloma recently underwent 1 treatment of ZOMETA who presents to the hospital with nausea vomiting since Monday. # intractable nausea vomiting--persistent likely from myeloma and cheom continue Zofran, oncology to advise more # hypocalcemia---d/t low albumin, corrected is 8.5 # hypophosphatemia, hypokalemia--corrected # pancytopenia d/t myloma, oncology consult # multiple myeloma - will consult Hematology-Oncology for further evaluation and management # diabetes - diabetic diet - low-dose sliding scale insulin # hypertension - stable DVT prophylaxis heparin subQ
[2020-11-05 11:58] LABS: Glucose, Whole Blood 86 mg/dL (60-115)
[2020-11-05] MEDS: Tbo-Filgrastim 300 MCG/0.5 ML SYRINGE SUBCUT (14:16)
--- NOTE | 2020-11-05 15:42 | PM.HEMONCCN ---
Subjective - Subjective Chief complaint: Consult for: Multiple myeloma. Pancytopenia. Hypocalcemia. Patient: known to practice within the last 3 years Consult date: 11/05/20 Requesting Physician: Jamey Primary Care Provider: Iveth Cowart MD Medical Summary: DIAGNOSIS: MULTIPLE MYELOMA. PANCYTOPENIA. HYPOCALCEMIA. HPI - Consult Narrative Reason for consult: Consult for: Multiple myeloma. Narrative: Klaudia Dow is a 75 year old lady, with recent diagnosis of multiple myeloma. who presented to the hospital on 11/03 with complaints of nausea and vomiting. Patient was diagnosed with multiple myeloma recently, underwent bisphosphonate therapy 13 days ago. She presented with continuous nausea and vomiting. She mentioned that she started having nausea vomiting since Monday, that progressively worsened. It has been associated with intermittent abdominal pain. She denies diarrhea or constipation. Patient received Zometa recently for treamtnet of hypercalcemia and MM. Denies any chest pain, headache, change in vision, no shortness of breath, no urinary symptoms and no lower extremity edema. Here the patient was hemodynamically stable. No significant abnormal vitals. Labs are significant for: WBC count of 1.3, hemoglobin of 9.0, absolute neutrophil count of 0.7. Sodium of 140, potassium 3.0, calcium level of 5.8, phosphorus level of 2.0, magnesium of 1.6, UA that is positive for protein otherwise negative. COVID-19 negative. Past medical history: Multiple Myeloma, diabetes, HTN, hypercalcemia, hyperlipidemia, RADHA, pancytopenia, subclinical hypothyroidism, Review of Systems - Constitutional Reports system reviewed and no additional complaints, except as documented, Reports lack of energy, Reports malaise, Reports weakness, Reports weight loss - Eyes Reports system reviewed and no additional complaints, except as documented, Denies blurry vision - ENT Reports system reviewed and no additional complaints, except as documented - Cardiovascular Reports system reviewed and no additional complaints, except as documented, Denies chest pain at rest - Respiratory Reports no additional respiratory complaints, Denies change in phlegm color - Gastrointestinal Reports system reviewed and no additional complaints, except as documented, Reports abdominal pain, Reports nausea - Genitourinary Reports no additional female genitourinary complaints, Denies abnormal vaginal bleeding - Musculoskeletal Reports system reviewed and no additional complaints, except as documented, Reports body aches - Integumentary/Breasts Skin/Breast: Reports no additional skin complaints, Denies bleeding lesions - Neurologic Reports system reviewed and no additional complaints, except as documented, Denies sensory deficit - Psychiatric Reports system reviewed and no additional complaints, except as documented, Reports anxiety - Endocrine Reports no additional endocrine complaints, Denies excessive sweating - Hematologic/Lymphatic Reports system reviewed and no additional complaints, except as documented, Denies easy bruising - Allergic/Immunologic Reports system reviewed and no additional complaints, except as documented, Denies GI upset with certain foods PMFSH Medical History: Medical History (Last Reviewed 11/04/20 @ 06:06 by Dirk Rich MD) Diabetes mellitus type 2, controlled, without complications Essential hypertension Hypercalcemia Hyperlipidemia, unspecified Hypoglycemia unawareness associated with type 2 diabetes mellitus Obstructive sleep apnea Pancytopenia Subclinical hyperthyroidism Functional capacity: uses cane/walker Patient : No Family History: Family History (Last Reviewed 11/04/20 @ 06:06 by Dirk Rich MD) Father No problems noted. Mother Heart disease Brother Atrial fibrillation Brother Atrial fibrillation Brother Atrial fibrillation Surgical History: Surgical History (Last Reviewed 11/04/20 @ 06:06 by Dirk Rich MD) History of knee replacement History of left hip replacement Social History: Social History (Last Reviewed 11/04/20 @ 06:06 by Dirk Rich MD) Living Situation History: Household Members: Family Household Members Other:: 3 Housing: House Do you presently have visiting nurse or other home services: Yes Do you presently have visiting nurse or other home services comment: vna and social services aide Alcohol History: Alcohol intake: never Alcohol History Details: Alcohol intake frequency: does not drink Tobacco History: Smoking Status: Never smoker Substance Use History: Use of substances other than those prescribed or required for medical reasons: No Currently Displaying Signs/Symptoms of Drug Intoxication Withdrawal: No Domestic Abuse History: Have you been hit, kicked, punched, or otherwise hurt by someone within the past year? If so, by whom?: No Do you feel safe in your current relationship?: No Current Relationship Is there a partner from a previous relationship who is making you feel unsafe now?: No Are you made to feel afraid or neglected: No Advance Directives: Advance Directives: Yes Advance Directives Information Provided: No Advance Directives on File: Yes Advance Directives Date on File: 10/09/20 Homicidal Assessment: Do you have thoughts of harming others: None Do you have a plan to hurt others: No Plan Nutrition Assessment: Recently lost weight without trying: Yes How much weight loss: 2-13 pounds Eating poorly because of decreased appetite: No Nutrition screen score: 3 Nutrition Risks: No Nutritional Risk Nutrition Risks: Acute nausea or vomiting Patient : No : No Poor oral hygiene: No Occupation Assessmet: service: No Current occupational status: retired Smoking status: Never smoker Home Medications and Allergies Current Medications: Current Medications Generic Name Dose Route Start Last Admin Trade Name Freq PRN Reason Stop Dose Admin Acetaminophen 650 mg 11/04/20 00:22 Acetaminophen 325 Mg Tablet PO Q6H PRN Pain, Mild (Pain Scale 1-3) Al Hydroxide/Mg Hydroxide 30 ml 11/04/20 00:22 Magnesium Hydrox/Alum Hydrox 30 Ml Oral.Susp PO Q4H PRN Heartburn/Nausea Aspirin 81 mg 11/04/20 09:00 11/05/20 09:19 Aspirin 81 Mg Tab.Chew PO 81 mg DAILY DONAVAN Administration Bisacodyl 10 mg 11/03/20 22:18 Bisacodyl 10 Mg Supp.Rect CA DAILY PRN constipation Docusate Sodium 100 mg 11/04/20 09:00 11/05/20 09:19 Docusate Sodium 100 Mg Capsule PO Not Given BID DONAVAN Docusate Sodium 100 mg 11/04/20 00:22 Docusate Sodium 100 Mg Capsule PO DAILY PRN Constipation Furosemide 20 mg 11/04/20 09:00 11/05/20 09:19 Furosemide 20 Mg Tablet PO 20 mg DAILY DON[facility]AN Administration Protocol Heparin Sodium (Porcine) 5,000 unit 11/04/20 02:00 11/05/20 14:56 Heparin Sodium,Porcine 5,000 Unit/Ml Vial SUBCUT 5,000 unit Q12H [facility] Administration Cefepime HCl 1 gm/ Sodium 50 mls @ 100 mls/hr 11/04/20 06:00 11/05/20 14:39 Chloride IV Infused Q8H [facility] Infusion Insulin Human Lispro 0 unit 11/04/20 07:30 11/05/20 12:26 Insulin Lispro 100 Unit/Ml 3 Ml Vial SUBCUT Not Given QIDACHS [facility] Protocol Omeprazole 20 mg 11/04/20 09:00 11/05/20 09:18 Omeprazole 20 Mg Capsule. PO 20 mg DAILY [facility] Administration Ondansetron HCl 4 mg 11/03/20 21:55 11/04/20 16:37 Ondansetron Hcl 4 Mg/2 Ml Vial IVPUSH 4 mg Q8H PRN Administration Nausea and Vomiting Polyethylene Glycol 17 gm 11/03/20 22:18 Polyethylene Glycol 3350 17 Gm Powd.Pack PO DAILY PRN Constipation Prochlorperazine Edisylate 5 mg 11/03/20 22:39 11/05/20 09:57 Prochlorperazine Edisylate 10 Mg/2 Ml Vial IVPUSH 5 mg Q6H PRN Administration Nausea and Vomiting Sodium Chloride 3 ml 11/04/20 00:22 11/05/20 09:22 0.9 % Sodium Chloride Flush 3 Ml Syringe IVFLUSH 3 ml QSHIFT [facility] Administration Tramadol HCl 50 mg 11/03/20 22:18 Tramadol Hcl 50 Mg Tablet PO Q12H PRN pain Home Medications Medication Instructions Recorded Confirmed Type allopurinol 300 mg tablet 300 mg PO DAILY 04/22/20 11/03/20 History aspirin 81 mg chewable tablet 81 mg PO DAILY 04/22/20 11/03/20 History docusate sodium 100 mg capsule 100 mg PO BID 04/22/20 11/03/20 History insulin aspart U-100 100 unit/mL 2 - 12 unit SUBCUT TID 04/22/20 11/03/20 History (3 mL) subcutaneous pen omeprazole 20 mg capsule,delayed 20 mg PO DAILY 04/22/20 11/03/20 History release amlodipine 5 mg tablet 5 mg PO DAILY 09/30/20 11/03/20 History insulin detemir U-100 100 unit/mL 20 unit SUBCUT BEDTIME ml 09/30/20 11/03/20 History (3 mL) subcutaneous pen polyethylene glycol 3350 [Miralax] 17 g PO DAILY PRN 10/06/20 11/03/20 History bisacodyl 1 supp CA DAILY PRN 10/09/20 11/03/20 History sennosides [senna] 8.6 mg PO BEDTIME PRN 10/09/20 11/03/20 History tramadol 1 tab PO Q12H PRN 10/20/20 11/03/20 History furosemide 20 mg tablet 20 mg PO DAILY 10/29/20 11/03/20 History Allergies Allergy/AdvReac Type Severity Reaction Status Date / Time codeine [CODEINE] Allergy Intermediate NAUSEA & Verified 10/25/20 10:17 VOMITING, vomiting lisinopril [LISINOPRIL] Allergy Intermediate COUGH, Verified 10/25/20 10:17 Coughing sulfamethoxazole Allergy Intermediate RASH Verified 10/25/20 10:17 [From BACTRIM] Physical Exam Vital signs: Vital Signs Temp 96.6 F L 11/05/20 15:38 Pulse 77 11/05/20 15:38 Resp 18 11/05/20 15:38 BP 103/61 11/05/20 15:38 Pulse Ox 98 11/05/20 15:38 Intake & Output 11/04/20 11/05/20 11/05/20 18:59 06:59 18:59 Intake Total 1166.667 / 1506.667 340 / 1506.667 410 / 410 Output Total 2 / 602 600 / 602 Balance 1164.667 / 904.667 -260 / 904.667 410 / 410 Urine Output (Average ml/kg/hr) 0.00 0.40 0.40 Intake: Intake, Oral Amount 240 / 480 240 / 480 360 / 360 Intake, IV Amount 926.667 / 1026.667 100 / 1026.667 50 / 50 Calcium Gluconate/NaCl,Iso-Osm 200 / 200 2 gm In 100 ml @ 50 mls/hr IV ONCE ONE Rx#:[id number] Potassium Phosphate 30 mmol In 510 / 510 0.9 % Sodium Chloride 500 ml @ 85 mls/hr IV ONCE ONE Rx#: [id number] cefEPime HCl 1 gm In 0.9 % 100 / 200 100 / 200 50 / 50 Sodium Chloride 50 ml @ 100 mls /hr IV Q8H [facility] Rx#:[id number] KCl 40 mEq in 0.9 % Sodium Chl 116.667 / 116.667 40 meq In 1,000 ml @ 250 mls/hr IVCONT .Q4H [facility] Rx#:[id number] Output: Output, Urine Amount 2 / 502 500 / 502 Output, Stool Amount 100 / 100 Other: Meal Refused No NPO No Breakfast % Eaten 0% 100% Lunch % Eaten 0% 75% Dinner % Eaten 25% Number of Unmeasured Voids 2 Urine Bedside Commode Bedside Commode Bedside Commode Urine Color Yellow Yellow Yellow Stool Bedside Commode Stool Amount Moderate Stool Color Brown Stool Consistency Liquid Weight 104.326 kg - Constitutional Present: mild distress - Routine HEENT Exam Head: Present: normal inspection ENT: Present: mucous membranes moist - Routine Neck Exam Present: supple - Routine Respiratory Exam Present: CTAB - Routine Cardiovascular Exam Cardiovascular: Present: RRR, S1, S2 - Routine Abdominal Exam Present: soft, nontender - Routine Rectal Exam Patient deferred: digital exam - Routine Extremities Exam Present: nontender - Routine Skin Exam Present: intact - Detailed Neurological Exam: Coma Scale Eye Opening: Spontaneous (4) Verbal Response: Oriented (5) Motor Response: Obeys commands (6) [place] Coma Scale Total: 15 - Routine Psychiatric Exam Present: normal affect Hem/Onc Consult Result - Labs CBC & Chem 7: 11/06/20 12:42 11/06/20 12:42 Labs: Short CBC 11/05/20 Range/Units 10:10 WBC 0.9 L* (4.8-10.8) X10*3/uL Hgb 8.3 L (12.0-16.0) g/dl Hct 25.4 L (37-47) % Plt Count 65 L (160-400) X10*3/uL BMP 11/04/20 19:14 Sodium 140 Potassium 4.2 Chloride 118 H Carbon Dioxide 17 L BUN 6 L Creatinine 0.79 Calcium 6.5 L D Assessment and Plan (1) Multiple myeloma Status: Acute Qualifiers: Multiple myeloma remission status: not in remission Qualified Code(s): C90.00 - Multiple myeloma not having achieved remission This is a pleasant 75-year-old lady with a history of her diabetes, recent COVID infection back in June, complicated by interstitial pancreatitis, now presents with hypercalcemia. She had an SIEP done back in 2018: IgG: To 637, IgA: 66, IgM: 67. IgG kappa monoclonal band present. Urine IEP: Showed free light chains. Given the clinical picture, most likely she has multiple myeloma. I proceeded with further evaluation. I rechecked SIEP: IgG 4482, IgA 21, IgM 27. IgG kappa monoclonal band present. Free light chains present. Serum free light chain ratio: 586.05. Checked beta 2 microglobulin level for prognosis. (22.2.) l checked skeletal survey on10/06: No fracture or definite bony lesion. Osteopenia versus lucency in the right medial femoral shaft just inferior to the lesser trochanter and left distal femoral shaft. Left hip and knee replacements. Degenerative changes of the spine. Bone marrow exam from 10/14: Consistent with plasma cell myeloma. Plasma cells are 60-70% of marrow cellularity. Myeloma FISH panel: Pending. l tried to proceed with a PET scan for further evaluation. It was denied. l tried to do a peer to peer. It again got denied. Insurance wanted us to do a low-dose skeletal CT scan of the body. That could not be done here. Then recommended MRI of the bone marrow to look at the blood flow. That got denied. I did another peer to peer. They finally approved. However, Radiology felt that patient would not be able to tolerate the length of time, which would be, 3 to 4 hours, lying still in the MRI machine. Also the cost of the procedure would not be covered by the cord provided by the insurance. It would come to thousands of dollars. We have appealed the decision. l tried to arrange for Denosumab, for hypercalcemia and multiple myeloma. However the planned did not cover. I tried to do Peer to Peer, however the physician approved Zometa. Her dose came to 3.5 mg. She received that a couple of weeks ago. PLAN: l have arranged for RVD based regimen. There are other regimens recommended including daratumumab/lenalidomide and Decadron. And carfilzomib/Lenalidomide and Decadron. However, this is the only regimen shown to have overall survival benefit, at this point. A prior authorization has been obtained. Will start early next week. She has been scheduled for Monday to get started. The plan from the discharge summary from [facility] revealed that she was supposed to have been endoscopic ultrasound for further evaluation, to assess for malignancy, in few weeks. I discussed this with the GI fellow. Dr. Marques's office is going to arrange for that. Thanks, CC: Dr. Cowart. Dr. Dr. Givens.
[2020-11-05 16:15] LABS: Glucose, Whole Blood 120 mg/dL (60-115)
[2020-11-05 20:30] LABS: Glucose, Whole Blood 151 mg/dL (60-115)
[2020-11-05] MEDS: Docusate Sodium 100 MG CAPSULE PO (21:36)
[2020-11-05] MEDS: iohexoL 350 MG/ML 100 ML INFUS..BTL IV (22:19)
[2020-11-06] MEDS: Heparin Sodium,Porcine 5,000 UNIT/ML VIAL 5000 UNIT SUBCUT ×2 (02:17→12:49)
[2020-11-06 04:00] VITALS: BP 95/54; PULSE 87; RESP 16; TEMP 36.3; O2SAT 99
[2020-11-06] MEDS: cefEPime HCl 1 GM in 0.9 % Sodium Chloride 50 ML IV ×3 (05:59→21:15)
[2020-11-06 07:23] LABS: Glucose, Whole Blood 98 mg/dL (60-115)
[2020-11-06 07:56] VITALS: BP 93/50; PULSE 90; RESP 16; TEMP 36.4; O2SAT 100
[2020-11-06] MEDS: Furosemide 20 MG TABLET PO (08:23)
[2020-11-06] MEDS: Docusate Sodium 100 MG CAPSULE PO ×2 (08:23→21:17)
[2020-11-06] MEDS: Omeprazole 20 MG CAPSULE.DR PO (08:23)
[2020-11-06] MEDS: Aspirin 81 MG TAB.CHEW PO (08:23)
[2020-11-06] MEDS: 0.9 % Sodium Chloride Flush 3 ML SYRINGE IVFLUSH ×2 (08:24→17:03)
[2020-11-06] MEDS: Prochlorperazine Edisylate 10 MG/2 ML VIAL 5 MG IVPUSH (08:24)
[2020-11-06 11:23] LABS: Glucose, Whole Blood 146 mg/dL (60-115)
[2020-11-06 11:32] VITALS: BP 92/52; PULSE 80; RESP 16; TEMP 36.2; O2SAT 99
--- NOTE | 2020-11-06 11:41 | HO.PM.IMPN ---
Subjective Subjective Date of Service: 11/07/20 Interval History: f/u on n/v, still w/ some nausea but able to tolerate some foot Review of Systems .no fever +nausea Physical Exam Vital Signs: Vital Signs: Last Vital Signs Temp 97.1 F 11/06/20 11:32 Pulse 80 11/06/20 11:32 Resp 16 11/06/20 11:32 BP 92/52 L 11/06/20 11:32 Pulse Ox 99 11/06/20 11:32 Body Mass Index 38.2 te affect Const: Other: General: AO X 3, no acute distress Resp: CTA bilateral CVS: S1,S2,RRR, 2 + leg edema GI: +BS, NT, no distention Skin: No rash Neuro: motor grossly intact Psych: appropria Objective Data Current Medications Generic Name Dose Route Start Last Admin Trade Name Freq PRN Reason Stop Dose Admin Acetaminophen 650 mg 11/04/20 00:22 Acetaminophen 325 Mg Tablet PO Q6H PRN Pain, Mild (Pain Scale 1-3) Al Hydroxide/Mg Hydroxide 30 ml 11/04/20 00:22 Magnesium Hydrox/Alum Hydrox 30 Ml Oral.Susp PO Q4H PRN Heartburn/Nausea Aspirin 81 mg 11/04/20 09:00 11/06/20 08:23 Aspirin 81 Mg Tab.Chew PO 81 mg DAILY DONAVAN Administration Bisacodyl 10 mg 11/03/20 22:18 Bisacodyl 10 Mg Supp.Rect [place] DAILY PRN constipation Docusate Sodium 100 mg 11/04/20 09:00 11/06/20 08:23 Docusate Sodium 100 Mg Capsule PO 100 mg BID DONAVAN Administration Docusate Sodium 100 mg 11/04/20 00:22 Docusate Sodium 100 Mg Capsule PO DAILY PRN Constipation Furosemide 20 mg 11/04/20 09:00 11/06/20 08:23 Furosemide 20 Mg Tablet PO 20 mg DAILY DONAVAN Administration Protocol Heparin Sodium (Porcine) 5,000 unit 11/04/20 02:00 11/06/20 02:17 Heparin Sodium,Porcine 5,000 Unit/Ml Vial SUBCUT 5,000 unit Q12H [facility] Administration Cefepime HCl 1 gm/ Sodium 50 mls @ 100 mls/hr 11/04/20 06:00 11/06/20 06:39 Chloride IV Infused Q8H [facility] Infusion Insulin Human Lispro 0 unit 11/04/20 07:30 11/06/20 11:14 Insulin Lispro 100 Unit/Ml 3 Ml Vial SUBCUT Not Given QIDACHS [facility] Protocol Omeprazole 20 mg 11/04/20 09:00 11/06/20 08:23 Omeprazole 20 Mg Capsule.Dr PO 20 mg DAILY [facility] Administration Ondansetron HCl 4 mg 11/03/20 21:55 11/04/20 16:37 Ondansetron Hcl 4 Mg/2 Ml Vial IVPUSH 4 mg Q8H PRN Administration Nausea and Vomiting Polyethylene Glycol 17 gm 11/03/20 22:18 Polyethylene Glycol 3350 17 Gm Powd.Pack PO DAILY PRN Constipation Prochlorperazine Edisylate 5 mg 11/03/20 22:39 11/06/20 08:24 Prochlorperazine Edisylate 10 Mg/2 Ml Vial IVPUSH 5 mg Q6H PRN Administration Nausea and Vomiting Sodium Chloride 3 ml 11/04/20 00:22 11/06/20 08:24 0.9 % Sodium Chloride Flush 3 Ml Syringe IVFLUSH 3 ml QSHIFT [facility] Administration Tbo-Filgrastim 300 mcg 11/06/20 13:00 Tbo-Filgrastim 300 Mcg/0.5 Ml Syringe SUBCUT 11/06/20 13:01 ONCE ONE Tramadol HCl 50 mg 11/03/20 22:18 Tramadol Hcl 50 Mg Tablet PO Q12H PRN pain Labs CBC & Chem 7: 11/06/20 12:42 11/06/20 12:42 Assessment and Plan (1) Multiple myeloma: Status: Acute Assessment and Plan: 75-year-old female with past medical history of multiple myeloma recently underwent 1 treatment of ZOMETA who presents to the hospital with nausea vomiting since Monday. # intractable nausea vomiting--persistent likely from myeloma and chemo continue Zofran, add reglan before meals, oncology to advise more # hypocalcemia---d/t low albumin, corrected is 8.5 # hypophosphatemia, hypokalemia--corrected # pancytopenia d/t myloma, oncology f/u on outpatient basis # multiple myeloma - will consult Hematology-Oncology for further evaluation and management # diabetes - diabetic diet - low-dose sliding scale insulin # hypertension--BP on low side, - stable DVT prophylaxis heparin subQ
[2020-11-06] MEDS: Tbo-Filgrastim 300 MCG/0.5 ML SYRINGE SUBCUT (12:50)
[2020-11-06] MEDS: ondansetron HCL 4 MG/2 ML VIAL IVPUSH (12:50)
[2020-11-06 12:54] LABS: Hematocrit 25.6 % (37-47); Hemoglobin 8.2 g/dl (12.0-16.0); Mean Corpuscular Hemoglobin 31.8 pg (27.0-33.0); Mean Corpuscular Volume 99.2 fL (80-98); Mean Platelet Volume 10.8 fL (9.4-12.3); Red Blood Count 2.58 X10*6/uL (4.20-5.50); Red Cell Distribution Width 18.1 % (11.0-16.0)
[2020-11-06 13:01] LABS: Platelet Count 59 X10*3/uL (160-400); WBC ABN SCTR FOR CBC 1
[2020-11-06 13:26] LABS: Alanine Aminotransferase 19 U/L (0-31); Albumin Level 1.3 g/dL (3.5-5.0); Alkaline Phosphatase 42 U/L (39-117); Anion Gap 5 (12-20); Aspartate Amino Transferase 22 U/L (5-31); Bilirubin Total 0.6 mg/dL (0.0-1.0); Blood Urea Nitrogen 7 mg/dL (9-16); Calcium 7.2 mg/dL (8.4-10.2); Carbon Dioxide 20 mmol/L (22-29); Chloride 117 mmol/L (96-108); Creatinine Clr Calc Pharmacy 71.2; Estimated Glomerular Filt Rate > 60; Glucose Random 134 mg/dL (60-115); Potassium 3.6 mmol/L (3.3-5.1); Sodium 138 mmol/L (135-145); Total Protein 5.7 g/dL (6.5-8.0)
[2020-11-06 13:56] LABS: Band Neutrophils Percent 9 % (3-5); Lymphocytes Percent Manual 25 % (20-40); Metamyelocytes Percent 1 %; Monocytes Percent Manual 3 % (2-11); Neutrophils Percent Manual 62 % (45-73)
[2020-11-06 13:57] LABS: Burr Cells 1+ (0-2) /OIF; RBC Morphology NOTED
[2020-11-06 13:58] LABS: Large Platelet PRESENT; Platelet Estimate DECREASED (NORMAL); Platelet Morphology Comment NOTED
--- NOTE | 2020-11-06 14:15 | MHC.CM.PN ---
nurse health care recruiter note electronic medical record reviewed along with case discussed with staff nurse and on mutliple disciplinary rounds. met with patient she reported still emesis after eating a little, per hospitlaist rebecca to [facility] for dischagre discharge plan home with her daughter and resumption of her [place] vna for nrusing , her daughter is her primary duplication specialist, transportation her daughter pcp dr diaz byrne patient to call for post hospitla discharge folloe up patient to follow up with [facility] transportation her daughter
[2020-11-06 14:38] LABS: Lymphocytes Absolute Manual 0.5 X10*3/uL (0.6-4.8); Monocytes Absolute Manual 0.1 X10*3/uL (0.0-1.2); Neutrophils Absolute Manual 1.5 X10*3/uL (2.2-7.9); White Blood Count 2.1 X10*3/uL (4.8-10.8)
--- NOTE | 2020-11-06 15:11 | MHC.HEMONCSW ---
SPOKE WITH CAILIN AT [facility] APPEALS DEPT. THEY ARE IN RECEIPT OF APPEAL LETTER. SINCE REQUESTED URGENT RESPONSE THEY WILL DISCUSS WITH [employer] SPREADER AND DIRECTOR AND GET BACK TO US IN 72 HOURS. INFORMED COORDINATOR OF REHABILITATION SERVICES AND DR. PRITCHETT.
--- NOTE | 2020-11-06 15:13 | HE.ONCSEC ---
WE ARE APPEALING PET SCAN DENIAL.
[2020-11-06 15:59] VITALS: BP 102/56; PULSE 85; RESP 19; TEMP 36.7; O2SAT 97
[2020-11-06 16:39] LABS: Glucose, Whole Blood 137 mg/dL (60-115)
[2020-11-06] MEDS: Metoclopramide HCl 10 MG/2 ML VIAL 5 MG IVPUSH (17:04)
--- NOTE | 2020-11-06 18:51 | PC.NURSE ---
Reglan given prior to dinner due to nausea. Pt able to tolerate a few bites of sherbert but nothing else
[2020-11-06 19:53] VITALS: BP 103/57; PULSE 86; RESP 20; TEMP 36.6; O2SAT 96
[2020-11-06 20:29] LABS: Glucose, Whole Blood 139 mg/dL (60-115)
[2020-11-06 23:53] VITALS: BP 103/62; PULSE 86; TEMP 36.4; O2SAT 97
[2020-11-07] MEDS: Heparin Sodium,Porcine 5,000 UNIT/ML VIAL 5000 UNIT SUBCUT ×2 (01:41→15:19)
[2020-11-07 04:00] VITALS: BP 103/55; PULSE 88; RESP 16; TEMP 36.1; O2SAT 98
[2020-11-07] MEDS: cefEPime HCl 1 GM in 0.9 % Sodium Chloride 50 ML IV ×3 (06:19→21:22)
[2020-11-07 07:05] VITALS: BP 90/57; PULSE 85; RESP 16; TEMP 36.5; O2SAT 98
[2020-11-07 07:54] LABS: Glucose, Whole Blood 86 mg/dL (60-115)
[2020-11-07] MEDS: Metoclopramide HCl 10 MG/2 ML VIAL 5 MG IVPUSH (07:57)
[2020-11-07] MEDS: 0.9 % Sodium Chloride Flush 3 ML SYRINGE IVFLUSH (07:57)
[2020-11-07 09:28] VITALS: BP 107/63; PULSE 88; RESP 18; O2SAT 99
[2020-11-07] MEDS: ondansetron HCL 4 MG/2 ML VIAL IVPUSH (09:41)
--- NOTE | 2020-11-07 10:33 | P.PNIM_ITS ---
Subjective Subjective Date of Service: 11/07/20 Interval History: f/u on n/v, still with n/v Review of Systems no fever +nausea Physical Exam Vital Signs: Vital Signs: Last Vital Signs Temp 97.7 F 11/07/20 07:05 Pulse 88 11/07/20 09:28 Resp 18 11/07/20 09:28 BP 107/63 11/07/20 09:28 Pulse Ox 99 11/07/20 09:28 Body Mass Index 38.2 Const: Other: General: AO X 3, no acute distress Resp: CTA bilateral CVS: S1,S2,RRR, 2 + leg edema GI: +BS, NT, no distention Skin: No rash Neuro: motor grossly intact Psych: appropria Objective Data Current Medications Generic Name Dose Route Start Last Admin Trade Name Freq PRN Reason Stop Dose Admin Acetaminophen 650 mg 11/04/20 00:22 Acetaminophen 325 Mg Tablet PO Q6H PRN Pain, Mild (Pain Scale 1-3) Al Hydroxide/Mg Hydroxide 30 ml 11/04/20 00:22 Magnesium Hydrox/Alum Hydrox 30 Ml Oral.Susp PO Q4H PRN Heartburn/Nausea Aspirin 81 mg 11/04/20 09:00 11/06/20 08:23 Aspirin 81 Mg Tab.Chew PO 81 mg DAILY [facility] Administration Bisacodyl 10 mg 11/03/20 22:18 Bisacodyl 10 Mg Supp.Rect [place] DAILY PRN constipation Docusate Sodium 100 mg 11/04/20 09:00 11/06/20 21:17 Docusate Sodium 100 Mg Capsule PO 100 mg BID [facility]AN Administration Docusate Sodium 100 mg 11/04/20 00:22 Docusate Sodium 100 Mg Capsule PO DAILY PRN Constipation Furosemide 20 mg 11/04/20 09:00 11/06/20 08:23 Furosemide 20 Mg Tablet PO 20 mg DAILY [facility] Administration Protocol Heparin Sodium (Porcine) 5,000 unit 11/04/20 02:00 11/07/20 01:41 Heparin Sodium,Porcine 5,000 Unit/Ml Vial SUBCUT 5,000 unit Q12H [facility] Administration Cefepime HCl 1 gm/ Sodium 50 mls @ 100 mls/hr 11/04/20 06:00 11/07/20 06:59 Chloride IV Infused Q8H [facility] Infusion Insulin Human Lispro 0 unit 11/04/20 07:30 11/07/20 08:11 Insulin Lispro 100 Unit/Ml 3 Ml Vial SUBCUT Not Given QIDACHS [facility] Protocol Metoclopramide HCl 5 mg 11/06/20 16:57 11/07/20 07:57 Metoclopramide Hcl 10 Mg/2 Ml Vial IVPUSH 5 mg Q6H PRN Administration Nausea Omeprazole 20 mg 11/04/20 09:00 11/06/20 08:23 Omeprazole 20 Mg Capsule.Dr PO 20 mg DAILY [facility] Administration Ondansetron HCl 4 mg 11/03/20 21:55 11/07/20 09:41 Ondansetron Hcl 4 Mg/2 Ml Vial IVPUSH 4 mg Q8H PRN Administration Nausea and Vomiting Polyethylene Glycol 17 gm 11/03/20 22:18 Polyethylene Glycol 3350 17 Gm Powd.Pack PO DAILY PRN Constipation Prochlorperazine Edisylate 5 mg 11/03/20 22:39 11/06/20 08:24 Prochlorperazine Edisylate 10 Mg/2 Ml Vial IVPUSH 5 mg Q6H PRN Administration Nausea and Vomiting Sodium Chloride 3 ml 11/04/20 00:22 11/07/20 07:57 0.9 % Sodium Chloride Flush 3 Ml Syringe IVFLUSH 3 ml QSHIFT [facility] Administration Tramadol HCl 50 mg 11/03/20 22:18 Tramadol Hcl 50 Mg Tablet PO Q12H PRN pain Labs CBC & Chem 7: 11/06/20 12:42 11/06/20 12:42 Assessment and Plan (1) Multiple myeloma: Status: Acute Assessment and Plan: 75-year-old female with past medical history of multiple myeloma recently underwent 1 treatment of ZOMETA who presents to the hospital with nausea vomiting since Monday. #Intractable nausea vomiting--persistent likely from myeloma and chemo continue Zofran, add reglan before meals, oncology to advise more # hypocalcemia---d/t low albumin, corrected is 8.5 # hypophosphatemia, hypokalemia--corrected # pancytopenia d/t myloma, oncology f/u on outpatient basis # multiple myeloma - will consult Hematology-Oncology for further evaluation and management # diabetes - diabetic diet - low-dose sliding scale insulin # hypertension--BP on low side, - stable DVT prophylaxis heparin subQ
[2020-11-07 11:23] VITALS: BP 102/60; PULSE 88; RESP 17; TEMP 36.9; O2SAT 97
[2020-11-07] MEDS: Docusate Sodium 100 MG CAPSULE PO ×2 (11:26→21:22)
[2020-11-07] MEDS: Aspirin 81 MG TAB.CHEW PO (11:26)
[2020-11-07] MEDS: Furosemide 20 MG TABLET PO (11:26)
[2020-11-07] MEDS: Omeprazole 20 MG CAPSULE.DR PO (11:26)
[2020-11-07 11:46] LABS: Glucose, Whole Blood 107 mg/dL (60-115)
[2020-11-07 13:51] LABS: Immunoglobulin G 3532 mg/dL (600-1540)
--- NOTE | 2020-11-07 15:13 | MHC.CM.PN ---
PER HOSPITALIST NO D/C PLANNED FOR TODAY, REFERRAL TO [facility] FOR RESUMPTION OF CARE SENT VIA [facility], CM TO CONT TO MONITOR FOR D/C NEEDS.
[2020-11-07 15:34] VITALS: BP 115/62; PULSE 80; RESP 16; TEMP 36.2; O2SAT 100
[2020-11-07 16:36] LABS: Glucose, Whole Blood 118 mg/dL (60-115)
[2020-11-07 19:41] VITALS: BP 98/53; PULSE 84; RESP 16; TEMP 36.4; O2SAT 98
[2020-11-07 20:30] LABS: Glucose, Whole Blood 141 mg/dL (60-115)
[2020-11-08] VITALS (7 sets, daily range): BP systolic 105–136; BP diastolic 56–65; PULSE 78–95; RESP 16–20; TEMP 36.1–36.6; O2SAT 94–100
[2020-11-08] MEDS: Heparin Sodium,Porcine 5,000 UNIT/ML VIAL 5000 UNIT SUBCUT ×2 (02:59→14:18)
[2020-11-08] MEDS: cefEPime HCl 1 GM in 0.9 % Sodium Chloride 50 ML IV ×3 (05:21→21:51)
[2020-11-08 07:34] LABS: Glucose, Whole Blood 110 mg/dL (60-115)
[2020-11-08] MEDS: ondansetron HCL 4 MG/2 ML VIAL IVPUSH (08:13)
[2020-11-08] MEDS: 0.9 % Sodium Chloride Flush 3 ML SYRINGE IVFLUSH (08:14)
--- NOTE | 2020-11-08 10:53 | P.PNIM_ITS ---
Subjective Subjective Date of Service: 11/08/20 Interval History: f/u on n/v, Vomitted this morning with no abodminal pain Review of Systems no fever +nausea Physical Exam Vital Signs: Vital Signs: Last Vital Signs Temp 97.0 F 11/08/20 07:39 Pulse 83 11/08/20 07:39 Resp 16 11/08/20 07:39 BP 108/57 L 11/08/20 07:39 Pulse Ox 98 11/08/20 07:39 Body Mass Index 38.2 Const: Other: General: AO X 3, no acute distress Resp: CTA bilateral CVS: S1,S2,RRR, 2 + leg edema GI: +BS, NT, no distention Skin: No rash Neuro: motor grossly intact Psych: appropria Objective Data Current Medications Generic Name Dose Route Start Last Admin Trade Name Freq PRN Reason Stop Dose Admin Acetaminophen 650 mg 11/04/20 00:22 Acetaminophen 325 Mg Tablet PO Q6H PRN Pain, Mild (Pain Scale 1-3) Al Hydroxide/Mg Hydroxide 30 ml 11/04/20 00:22 Magnesium Hydrox/Alum Hydrox 30 Ml Oral.Susp PO Q4H PRN Heartburn/Nausea Aspirin 81 mg 11/04/20 09:00 11/07/20 11:26 Aspirin 81 Mg Tab.Chew PO 81 mg DAILY DONAVAN Administration Bisacodyl 10 mg 11/03/20 22:18 Bisacodyl 10 Mg Supp.Rect VA DAILY PRN constipation Docusate Sodium 100 mg 11/04/20 09:00 11/07/20 21:22 Docusate Sodium 100 Mg Capsule PO 100 mg BID DONAVAN Administration Docusate Sodium 100 mg 11/04/20 00:22 Docusate Sodium 100 Mg Capsule PO DAILY PRN Constipation Furosemide 20 mg 11/04/20 09:00 11/07/20 11:26 Furosemide 20 Mg Tablet PO 20 mg DAILY DONAVAN Administration Protocol Heparin Sodium (Porcine) 5,000 unit 11/04/20 02:00 11/08/20 02:59 Heparin Sodium,Porcine 5,000 Unit/Ml Vial SUBCUT 5,000 unit Q12H DONAVAN Administration Cefepime HCl 1 gm/ Sodium 50 mls @ 100 mls/hr 11/04/20 06:00 11/08/20 06:03 Chloride IV Infused Q8H DONAVAN Infusion Insulin Human Lispro 0 unit 11/04/20 07:30 11/08/20 08:14 Insulin Lispro 100 Unit/Ml 3 Ml Vial SUBCUT Not Given [facility] Protocol Metoclopramide HCl 5 mg 11/06/20 16:57 11/07/20 07:57 Metoclopramide Hcl 10 Mg/2 Ml Vial IVPUSH 5 mg Q6H PRN Administration Nausea Omeprazole 20 mg 11/04/20 09:00 11/07/20 11:26 Omeprazole 20 Mg Capsule.Dr PO 20 mg DAILY DONAVAN Administration Ondansetron HCl 4 mg 11/03/20 21:55 11/08/20 08:13 Ondansetron Hcl 4 Mg/2 Ml Vial IVPUSH 4 mg Q8H PRN Administration Nausea and Vomiting Polyethylene Glycol 17 gm 11/03/20 22:18 Polyethylene Glycol 3350 17 Gm Powd.Pack PO DAILY PRN Constipation Prochlorperazine Edisylate 5 mg 11/03/20 22:39 11/06/20 08:24 Prochlorperazine Edisylate 10 Mg/2 Ml Vial IVPUSH 5 mg Q6H PRN Administration Nausea and Vomiting Sodium Chloride 3 ml 11/04/20 00:22 11/08/20 08:14 0.9 % Sodium Chloride Flush 3 Ml Syringe IVFLUSH 3 ml QSHIFT DONAVAN Administration Tramadol HCl 50 mg 11/03/20 22:18 Tramadol Hcl 50 Mg Tablet PO Q12H PRN pain Labs CBC & Chem 7: 11/06/20 12:42 11/06/20 12:42 Assessment and Plan (1) Multiple myeloma: Status: Acute Assessment and Plan: 75-year-old female with past medical history of multiple myeloma recently underwent 1 treatment of ZOMETA who presents to the hospital with nausea vomiting since Monday. #Intractable nausea vomiting--persistent likely from myeloma and chemo continue Zofran, add Phenergan -CT of abdomen and pelvis # hypocalcemia---d/t low albumin, corrected is 8.5 # hypophosphatemia, hypokalemia--corrected # pancytopenia d/t myloma, oncology f/u on outpatient basis # multiple myeloma - will consult Hematology-Oncology for further evaluation and management # diabetes - diabetic diet - low-dose sliding scale insulin # hypertension--BP on low side, - stable Check BMP and CBC routine DVT prophylaxis heparin subQ
[2020-11-08] MEDS: Omeprazole 20 MG CAPSULE.DR PO (11:19)
[2020-11-08] MEDS: Aspirin 81 MG TAB.CHEW PO (11:19)
[2020-11-08] MEDS: Furosemide 20 MG TABLET PO (11:19)
[2020-11-08] MEDS: Docusate Sodium 100 MG CAPSULE PO ×2 (11:19→21:51)
[2020-11-08 11:42] LABS: Hematocrit 27.9 % (37-47); Hemoglobin 9.2 g/dl (12.0-16.0); Mean Corpuscular Hemoglobin 32.2 pg (27.0-33.0); Mean Corpuscular Volume 97.6 fL (80-98); Mean Platelet Volume 11.3 fL (9.4-12.3); Red Blood Count 2.86 X10*6/uL (4.20-5.50); Red Cell Distribution Width 17.9 % (11.0-16.0)
[2020-11-08 11:44] LABS: Platelet Count 69 X10*3/uL (160-400); White Blood Count 2.5 X10*3/uL (4.8-10.8)
[2020-11-08 12:06] LABS: Glucose, Whole Blood 142 mg/dL (60-115)
[2020-11-08 12:12] LABS: Anion Gap 6 (12-20); Blood Urea Nitrogen 9 mg/dL (9-16); Calcium 7.5 mg/dL (8.4-10.2); Carbon Dioxide 20 mmol/L (22-29); Chloride 115 mmol/L (96-108); Creatinine Clr Calc Pharmacy 70.4; Estimated Glomerular Filt Rate > 60; Glucose Random 143 mg/dL (60-115); Potassium 3.3 mmol/L (3.3-5.1); Sodium 138 mmol/L (135-145)
[2020-11-08 16:28] LABS: Glucose, Whole Blood 163 mg/dL (60-115)
[2020-11-08] MEDS: Insulin Lispro 100 UNIT/ML 3 ML VIAL SUBCUT ×2 (17:35→21:53)
[2020-11-08] MEDS: bisacodyL 10 MG SUPP.RECT PR (19:20)
[2020-11-08 20:29] LABS: Glucose, Whole Blood 175 mg/dL (60-115)
[2020-11-08] MEDS: polyethylene glycoL 3350 17 GM POWD.PACK PO (22:06)
--- NOTE | 2020-11-08 22:12 | PC.NURSE ---
Addendum entered by Madison Marcum RN 11/08/20 23:09: patient had a med soft BM Original Note: P patient c/o constipation I-Dulcolax was administered with no effect,administered Miralax E will monitor
[2020-11-09] MEDS: Heparin Sodium,Porcine 5,000 UNIT/ML VIAL 5000 UNIT SUBCUT (01:08)
[2020-11-09] MEDS: 0.9 % Sodium Chloride Flush 3 ML SYRINGE IVFLUSH ×2 (01:12→08:07)
[2020-11-09 04:00] VITALS: BP 102/59; PULSE 84; RESP 18; TEMP 36.3; O2SAT 99
[2020-11-09] MEDS: cefEPime HCl 1 GM in 0.9 % Sodium Chloride 50 ML IV (06:31)
[2020-11-09 08:00] VITALS: BP 112/69; PULSE 88; RESP 18; TEMP 36.2; O2SAT 97
[2020-11-09] MEDS: Omeprazole 20 MG CAPSULE.DR PO (08:06)
[2020-11-09] MEDS: Docusate Sodium 100 MG CAPSULE PO (08:06)
[2020-11-09] MEDS: Aspirin 81 MG TAB.CHEW PO (08:06)
[2020-11-09] MEDS: Furosemide 20 MG TABLET PO (08:06)
[2020-11-09 08:13] LABS: Glucose, Whole Blood 115 mg/dL (60-115)
--- NOTE | 2020-11-09 09:09 | PM.DS ---
DS: Providers Provider Date of Service: 11/09/20 Date of admission: 11/03/20 21:55 Primary care physician: Iveth Cowart MD Consults: 11/04/20 00:22 Consult to Hematology / Oncology Routine Consulting Provider: Carissa Raman Reason for consultation: MM presenting w hypocalcemia Has provider been notified: No 11/04/20 01:30 Consult Respiratory Therapy Routine Reason for consultation: cpap 11/05/20 12:03 Consult to Hematology / Oncology Routine Consulting Provider: Carissa Raman Reason for consultation: Pancytopenia, myeloma with symptoms of n/v DS: Diagnosis Discharge Diagnosis (1) Multiple myeloma: Status: Acute DS: Medications Discharge Medications Home Medications: Home Medications Medication Instructions Recorded Confirmed allopurinol 300 mg tablet 300 mg PO DAILY 04/22/20 11/03/20 aspirin 81 mg chewable tablet 81 mg PO DAILY 04/22/20 11/03/20 docusate sodium 100 mg capsule 100 mg PO BID 04/22/20 11/03/20 insulin aspart U-100 100 unit/mL 2 - 12 unit SUBCUT TID 04/22/20 11/03/20 (3 mL) subcutaneous pen omeprazole 20 mg capsule,delayed 20 mg PO DAILY 04/22/20 11/03/20 release amlodipine 5 mg tablet 5 mg PO DAILY 09/30/20 11/03/20 insulin detemir U-100 100 unit/mL 20 unit SUBCUT BEDTIME ml 09/30/20 11/03/20 (3 mL) subcutaneous pen polyethylene glycol 3350 [Miralax] 17 g PO DAILY PRN 10/06/20 11/03/20 bisacodyl 1 supp NM DAILY PRN 10/09/20 11/03/20 sennosides [senna] 8.6 mg PO BEDTIME PRN 10/09/20 11/03/20 tramadol 1 tab PO Q12H PRN 10/20/20 11/03/20 furosemide 20 mg tablet 20 mg PO DAILY 10/29/20 11/03/20 Previous Rx's Medication Instructions Recorded cefuroxime axetil 250 mg PO BID 7 Days #14 tab 10/25/20 ondansetron HCl [Zofran] 4 mg PO Q8H PRN #10 tab 10/25/20 acyclovir 400 mg PO DAILY #90 tab 10/26/20 dexamethasone [Decadron] 20 mg PO 2XW #100 tab 10/26/20 ondansetron HCl [Zofran] 8 mg PO Q8H PRN #50 tab 10/26/20 atovaquone [Mepron] 1,500 mg PO DAILY #300 ml 10/29/20 metoclopramide HCl [Reglan] 5 mg PO TIDAC #30 tab 11/09/20 DS: Summary Hospital Course Hospital Course: Nausea vomiting This is a 75-year-old female with past medical history of multiple myeloma, diabetes, HTN, hypercalcemia, hyperlipidemia, RADHA, pancytopenia, subclinical hypothyroidism, who presents to the hospital with complaints of nausea vomiting. Patient was diagnosed with multiple myeloma recently, underwent chemotherapy 13 days ago, presents today with continuous nausea vomiting. She reports that she started having nausea vomiting since Monday, worsened today. Associated with some abdominal pain intermittently, has no diarrhea or constipation. Patient received Zometa recently for treamtnet of hypercalcemia and MM. Denies any chest pain, headache, change in vision, no shortness of breath, no urinary symptoms and no lower extremity edema. On arrival patient hemodynamically stable with No significant abnormal vitals Labs are significant for WBC count of 1.3, hemoglobin of 9.0, absolute neutrophil count of 0.7, sodium of 140, potassium 3.0, calcium level of 5.8, phosphorus level of 2.0, magnesium of 1.6, UA that is positive for protein otherwise negative, COVID-19 negative. Hospital course: Patient was admitted with intractable nausea and vomitting likely from her multiple myeloma, work up was essentially unremarkable. Her electrolytes have been unremarkable. She was treated with antiemtics, hydration and slowly her diet was advanced and is tolerating regular diet now. She will be discharge with Zofran, reglan PRN and is planned to have chemotherapy tomorrow, this may cause additional symptoms in the shourt term but ultimately will help in the long run Time Spent with Patient Time attestation: Total time spent providing and/or coordinating discharge services: Discharge coordination time: Greater than 30 minutes Physical Exam Vital Signs: Vital Signs: Last Vital Signs Temp 97.1 F 11/09/20 08:00 Pulse 88 11/09/20 08:00 Resp 18 11/09/20 08:00 BP 112/69 11/09/20 08:00 Pulse Ox 97 11/09/20 08:00 Body Mass Index 38.2 General: AO X 3, no acute distress Resp: CTA bilateral CVS: S1,S2,RRR, 2 + leg edema GI: +BS, NT, no distention Skin: No rash Neuro: motor grossly intact Psych: appropria DS: Data Data Completed and Pending Completed studies during hospitalization [Text1]: Procedures Extraction of Iliac Bone Marrow, Percutaneous Approach, Diagnostic (10/09/20) Labs on day of discharge: Laboratory Results - last 24 hr 11/08/20 11/08/20 11/08/20 11:04 11:30 11:30 WBC 2.5 L RBC 2.86 L Hgb 9.2 L Hct 27.9 L MCV 97.6 MCH 32.2 MCHC 33.0 RDW 17.9 H Plt Count 69 L MPV 11.3 Absolute Nucleated RBC 0.000 Nucleated RBC % (auto) 0.0 Sodium 138 Potassium 3.3 Chloride 115 H Carbon Dioxide 20 L Anion Gap 6 L BUN 9 Creatinine 0.84 Estim Creat Clear Calc 70.4 Estimated GFR > 60 POC Glucose 142 H Random Glucose 143 H Calcium 7.5 L 11/08/20 11/08/20 11/09/20 16:11 20:16 08:02 WBC RBC Hgb Hct MCV MCH MCHC RDW Plt Count MPV Absolute Nucleated RBC Nucleated RBC % (auto) Sodium Potassium Chloride Carbon Dioxide Anion Gap BUN Creatinine Estim Creat Clear Calc Estimated GFR POC Glucose 163 H 175 H 115 Random Glucose Calcium Discharge Plan Discharge Anticipated Discharge Date/Time: 11/09/20 09:04 Patient Disposition: Home, Self-Care Discharge Diagnosis: Nausea and vomitting Referrals: Christina DOWNING [Outside] - 1 Day (d/c home where her primary nail making machine tender is her daughter, resumption of her services with the [facility] for nrusing (confirmed with den palmer/c weeknd) [facility] family pcp dr caty milian patient instructed to call for post hospitaL dischagre follow up [facility] [place] [place] [facility] ) Iveth Cowart MD [Primary Care Provider] - 1 Week (Follow up Tele 11/09/2020 at 10:[address] Cowart. They will call you to discus your hospital stay. ) Discharge Medications: New metoclopramide HCl [Reglan] 5 mg tablet 5 mg PO TIDAC Qty: 30 RF: 0 Continued ondansetron HCl [Zofran] 4 mg tablet 4 mg PO Q8H PRN (Reason: nausea and vomiting) Qty: 10 RF: 0 cefuroxime axetil 250 mg tablet 250 mg PO BID 7 Days Qty: 14 RF: 0 ondansetron HCl [Zofran] 4 mg Tablet 8 mg PO Q8H PRN (Reason: Nausea And Vomiting) Qty: 50 RF: 4 dexamethasone [Decadron] 4 mg Tablet 20 mg PO 2XW Qty: 100 RF: 4 acyclovir 400 mg Tablet 400 mg PO DAILY Qty: 90 RF: 4 polyethylene glycol 3350 [Miralax] 17 gram/dose Powder 17 g PO DAILY PRN (Reason: Constipation) RF: 0 tramadol 50 mg tablet 1 tab PO Q12H PRN (Reason: pain) RF: 0 bisacodyl 10 mg suppository 1 supp NM DAILY PRN (Reason: constipation) RF: 0 sennosides [senna] 8.6 mg Tablet 8.6 mg PO BEDTIME PRN (Reason: Constipation) RF: 0 atovaquone [Mepron] 750 mg/5 mL Suspension 1,500 mg PO DAILY Qty: 300 RF: 6 aspirin 81 mg tablet,chewable 81 mg PO DAILY RF: 0 allopurinol 300 mg tablet 300 mg PO DAILY RF: 0 docusate sodium 100 mg capsule 100 mg PO BID RF: 0 insulin aspart U-100 100 unit/mL (3 mL) insulin pen 2 - 12 unit subcut TID RF: 0 omeprazole 20 mg capsule,delayed release(DR/EC) 20 mg PO DAILY RF: 0 insulin detemir U-100 100 unit/mL (3 mL) insulin pen 20 unit subcut BEDTIME RF: 0 amlodipine 5 mg tablet 5 mg PO DAILY RF: 0 furosemide 20 mg tablet 20 mg PO DAILY RF: 0 Discharge Orders: Discharge Order (Routine); Ordered 11/09/20 Ordered By: Jeanmarie Concepcion Diet: advance to usual diet Activity on Discharge: As tolerated Stand Alone Forms: Patient Portal Discharge page Care Plan Goals: Control nausea and vomitting Health Concerns: nausea vomitting, myeloma Plan of Treatment: nausea medication, drink plenty of fluid and follow up with Dr. Raman Assessment: Nausea and vomitting associated with myeloma
--- NOTE | 2020-11-09 11:15 | MHC.CM.PN ---
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 RESUMPTION OF HER SERVICES WITH THE [facility] NURSING PCP DR KARIME MARCELINO -PATIENT INSTRUCTED TO CALL FOR POST HOSPITAL DISCHARGE FOLLOW UP TRANSPORTATION PATIENTS DAUGHTER TO PROVIDE TRANSPORTATION
== END 2020-11-09 12:13 | disposition home health service (06) | DRG 691 ==
LOC: HO.ED 19:14 → HO.EDOVER 22:05 → HO.S3 22:23
PROVIDERS: Emergency Medicine; Internal Medicine Medical Oncology; Admitting Provider Internal Medicine; Emergency Provider Emergency Medicine; PCP Internal Medicine; Visit Provider Internal Medicine
DX: C90.00 Multiple myeloma not having achieved remission (principal); D61.810 Antineoplastic chemotherapy induced pancytopenia; E44.1 Mild protein-calorie malnutrition; E83.51 Hypocalcemia; E83.39 Other disorders of phosphorus metabolism; Z68.38 Body mass index [BMI] 38.0-38.9, adult; E11.9 Type 2 diabetes mellitus without complications; E87.6 Hypokalemia; Z20.822 Contact with and (suspected) exposure to COVID-19; Z88.2 Allergy status to sulfonamides; Z88.5 Allergy status to narcotic agent; Z79.4 Long term (current) use of insulin; Z79.82 Long term (current) use of aspirin; Z79.891 Long term (current) use of opiate analgesic; Z79.899 Other long term (current) drug therapy
CPT/HCPCS: 36415; 73702; 74176; 80048; 80053; 80076; 81001; 81003; 82784; 82947; 83735; 84100; 85007; 85025; 85027; 87635; 93005; 96365; 96366; 96368; 96375; 99285; J0610; J0692; J1447; J2405; J2550; J2765; J3475; Q9967

== ENCOUNTER 2020-11-10 14:17 | Outpatient (REF) | payer OTHER, SELFPAY ==
--- NOTE | ~2020-11-10 | US_ITS ---
EXAMINATION: US VENOUS WITH DOPPLER UPPER EXTREMITY, RIGHT CLINICAL INFORMATION: Edema. Swelling. COMPARISON: None TECHNIQUE: Ultrasound of the upper extremity is performed using compression sonography and color and pulse Doppler flow with assessment of augmentation of flow. There is also imaging and Doppler assessment of the jugular and subclavian veins. Spectral analysis with color-flow imaging is performed. FINDINGS: There is a occlusive thrombus in the distal basilic vein. This correlates to area of pain and swelling. The remainder of the deep veins of the upper extremity have normal vascular flow and compressibility. US/US venous duplex UE RT IMPRESSION: There is occlusive thrombus in the distal basilic vein. This critical result was discussed with Dr. Raman on 11/10/2020, 1520 hours and it was ascertained that the content and urgency of the report was understood at the time of direct communication.
== END 2020-11-10 14:18 | disposition home or self-care (01) ==
LOC: HO.US 14:17
PROVIDERS: PCP Internal Medicine; Visit Provider Internal Medicine Medical Oncology
DX: R60.0 Localized edema (principal)
CPT/HCPCS: 93971

== ENCOUNTER 2020-11-24 15:15 | Inpatient (IN) | payer OTHER, SELFPAY ==
[2020-11-24] VITALS (7 sets, daily range): BP systolic 88–107; BP diastolic 35–64; PULSE 68–82; RESP 15–16; TEMP 36.7; O2SAT 95–99; BMI 37.3
--- NOTE | ~2020-11-24 | CT_ITS ---
EXAMINATION: CT ABDOMEN AND PELVIS WITH CONTRAST CLINICAL INFORMATION: AP, r/o pancreatitis COMPARISON: 11/08/2020. TECHNIQUE: Multidetector volumetric imaging was performed from the superior aspect of the liver through the pubic symphysis following administration of 100 mL Omnipaque 350 intravenous contrast. Sagittal and coronal reformatted images were obtained on the technologist workstation. This CT examination was performed using dose optimization techniques as appropriate, variously including the following: *Automated exposure control *Adjustment of mA and/or kV according to patient size (this includes techniques or standardized protocols for targeted exams where dose is matched to indication/reason for exam; i.e. extremities or head) *Use of iterative reconstruction technique DLP: 1490 mGy-cm FINDINGS: LUNG BASES: Small bilateral pleural effusions and persistent basilar consolidation/atelectasis LIVER, GALLBLADDER, AND BILIARY TREE: Diffuse fatty infiltration of the liver but no focal hepatic lesion nor obvious biliary ductal dilatation. Gallbladder is not visualized and presumably surgically absent. PANCREAS: Pancreas is atrophic. There is very subtle stranding adjacent to the pancreatic head and early pancreatitis cannot be excluded. Correlation with amylase and lipase levels recommended. No pancreatic ductal dilatation or pseudocyst formation SPLEEN: Unremarkable. ADRENAL GLANDS: Unremarkable. KIDNEYS AND URETERS: The kidneys are normal in size, shape, and attenuation. No hydronephrosis, hydroureter, or calculi seen. No perinephric stranding. BLADDER: Unremarkable. GASTROINTESTINAL TRACT: Scattered colonic diverticulosis but no evidence for diverticulitis. Normal-appearing appendix in the right lower quadrant. Visualized small bowel is unremarkable. There is focal wall thickening within the gastric antrum and pyloric region of the stomach suggesting underlying gastritis although this appearance could also be seen in the setting of focal peristaltic wave. Clinical correlation would be helpful. ABDOMINAL WALL: Mild anasarca. LYMPHOVASCULAR STRUCTURES: Vascular calcification within the aorta iliac system. No bulky adenopathy PELVIC VISCERA: Mild heterogeneity within the anterior fundus possibly representing a small 2.7 cm fibroid difficult to define further on the study but the appearance is similar to the recent 11/08/2020 study OSSEOUS STRUCTURES: Degenerative changes in the spine. Left hip prosthesis CT/CT abdomen pelvis w con IMPRESSION: Mild soft tissue stranding adjacent to the pancreatic head suggesting subtle pancreatitis. Correlation with amylase and lipase levels would be recommended. No pancreatic ductal dilatation, pancreatic calcifications, or surrounding fluid collections. Focal wall thickening to the gastric antrum and pyloric region possibly representing gastritis although this appearance could be secondary to focal peristaltic wave. This could be clinically correlated. Other more chronic appearing changes as described above
--- NOTE | ~2020-11-24 | XR_ITS ---
EXAMINATION: XR CHEST CLINICAL INFORMATION: Weakness. Rule out pneumonia. COMPARISON: Chest x-ray 07/26/2020 TECHNIQUE: 2 views of the chest were obtained. FINDINGS: Cardiac silhouette is normal in size. Right chest port in expected position with tip terminating within the distal SVC. The lungs are well aerated. There is no lobar consolidation. No pleural effusion or pneumothorax. Moderate diffuse degenerative changes of the spine. XR/XR chest 2V IMPRESSION: No acute pulmonary pathology.
--- NOTE | 2020-11-24 15:37 | ECG_ITS ---
Test Reason : NAUSEA Blood Pressure : / mmHG Vent. Rate : 073 BPM Atrial Rate : 073 BPM P-R Int : 162 ms QRS Dur : 072 ms QT Int : 474 ms P-R-T Axes : 034 -09 -09 degrees QTc Int : 522 ms Normal sinus rhythm Low voltage QRS Nonspecific T wave abnormality Prolonged QT Abnormal ECG When compared with ECG of 03-NOV-2020 17:39, Premature atrial complexes are no longer Present QT has lengthened Referred By: Iris Wilson Electronically Signed By:Kota Ramos
--- NOTE | 2020-11-24 15:52 | ED.ABDPAIN ---
HPI - Abdominal Pain General Chief Complaint: Weakness Stated Complaint: nausea vomiting dehydration Time Seen by Provider: 11/24/20 15:32 Source: patient and family Mode of arrival: wheelchair Limitations: no limitations History of Present Illness HPI narrative: 75-year-old female with a past medical history of diabetes, hypertension, hypercalcemia, hyperlipidemia, RADHA, pancytopenia, hyperthyroid, multiple myeloma (last chemo today) here with complaint of nausea, vomiting and abdominal pain which has been intermittent for weeks to months. Has been worsened over the last 2 days. Unable to tolerate p.o.. Now feeling generally weak. Seen today at Oncology for her scheduled chemotherapy and referred to the emergency department for further evaluation. She does have an appointment with GI at [facility] on 11/30. Related Data Home Medications Medication Instructions Recorded Confirmed aspirin 81 mg chewable tablet 81 mg PO DAILY 04/22/20 11/03/20 docusate sodium 100 mg capsule 100 mg PO BID 04/22/20 11/03/20 insulin aspart U-100 100 unit/mL 2 - 12 unit SUBCUT TID 04/22/20 11/03/20 (3 mL) subcutaneous pen omeprazole 20 mg capsule,delayed 20 mg PO DAILY 04/22/20 11/03/20 release insulin detemir U-100 100 unit/mL 20 unit SUBCUT BEDTIME ml 09/30/20 11/03/20 (3 mL) subcutaneous pen polyethylene glycol 3350 [Miralax] 17 g PO DAILY PRN 10/06/20 11/03/20 bisacodyl 1 supp UT DAILY PRN 10/09/20 11/03/20 sennosides [senna] 8.6 mg PO BEDTIME PRN 10/09/20 11/03/20 tramadol 1 tab PO Q12H PRN 10/20/20 11/03/20 furosemide 20 mg tablet 20 mg PO DAILY 10/29/20 11/10/20 Previous Rx's Medication Instructions Recorded ondansetron HCl [Zofran] 4 mg PO Q8H PRN #10 tab 10/25/20 acyclovir 400 mg PO DAILY #90 tab 10/26/20 dexamethasone [Decadron] 20 mg PO 2XW #100 tab 10/26/20 ondansetron HCl [Zofran] 8 mg PO Q8H PRN #50 tab 10/26/20 atovaquone [Mepron] 1,500 mg PO DAILY #300 ml 10/29/20 metoclopramide HCl [Reglan] 5 mg PO TIDAC #30 tab 11/09/20 lenalidomide [Revlimid] 15 mg PO DAILY #21 cap 11/13/20 Allergies Allergy/AdvReac Type Severity Reaction Status Date / Time codeine [CODEINE] Allergy Intermediate NAUSEA & Verified 10/25/20 10:17 VOMITING, vomiting lisinopril [LISINOPRIL] Allergy Intermediate COUGH, Verified 10/25/20 10:17 Coughing sulfamethoxazole Allergy Intermediate RASH Verified 10/25/20 10:17 [From BACTRIM] Review of Systems Review of Systems Yes all other systems are reviewed and are negative Constitutional: Reports no additional constitutional complaints, Denies body ache(s), Denies chills, Denies fever(s), Denies headache(s) and Reports weakness Eyes: Reports no additional eye complaints and Denies change in vision Reports system reviewed and no additional complaints, except as documented, Denies dizziness, Denies headache(s), Denies nasal congestion, Denies nasal discharge and Denies neck pain Cardiovascular: Reports no additional cardiovascular complaints, Denies chest pain, Denies leg edema and Denies dyspnea Respiratory: Reports no additional respiratory complaints, Denies cough and Denies dyspnea Gastrointestinal: Reports no additional gastrointestinal complaints, Reports abdominal pain, Denies diarrhea, Reports nausea and Reports vomiting Genitourinary: Reports no additional female genitourinary complaints and Denies urinary incontinence Musculoskeletal: Reports no additional musculoskeletal complaints, Denies back pain, Denies arthralgias, Denies joint swelling, Denies neck pain, Denies numbness and Denies tingling Skin/Breast: Reports system reviewed and no additional complaints, except as docu and Denies rash Reports system reviewed and no additional complaints, except as documented, Denies Abnormal speech present, Denies dizziness, Denies headache(s), Denies numbness, Denies tingling and Reports weakness Physical Exam Vital Signs: Vital Signs: Last Vital Signs Temp 98.0 F 11/24/20 15:49 Pulse 82 11/24/20 19:41 Resp 15 11/24/20 19:41 BP 105/48 L 11/24/20 21:28 Pulse Ox 96 11/24/20 19:41 Body Mass Index 37.3 Const: General: cooperative, healthy appearing, comfortable and no acute distress Orientation/consciousness: patient oriented x3 Limitations: no limitations HENMT: Head: Yes normal to inspection Ears: hearing grossly normal bilaterally General nose exam: Normal external nose present Face and sinus: Yes normal facial exam Mouth: Normal oral and palatal mucosa present Throat: Yes posterior oropharynx normal Eyes: General: appearance normal, both eyes and all related structures Pupils: Equal, round and reactive pupils present Neck: Neck: Yes normal visual inspection Chest: Chest palpation & inspection: normal inspection of the chest Resp: Effort & Inspection: normal respiratory effort Auscultation: clear to auscultation bilaterally Cardio: Rate: regular rate Rhythm: regular rhythm Peripheral pulses: Peripheral pulses 2+ throughout GI: Inspection: Yes normal to inspection Palpation (GI): Soft to palpation and Tenderness to palpation present (GI) (Epigastric. No rebound or guarding) Auscultation: normal bowel sounds Back/Spine/Pelvis: Thoracic/Lumbar Spine: thoracic and lumbar spine normal to inspection Skin: General skin exam: no rashes or lesions noted Neuro: General: patient oriented x3, moves all extremities, no focal motor deficits, normal sensation to monofilament and Unable to assess gait Cranial nerves: Yes Equal, round and reactive pupils present Cognition (Neuro): normal cognition Speech: No Abnormal speech present Gait exam (Neuro): Unable to assess gait Extrem: General: Yes normal to inspection, Yes no pedal edema and Yes no calf tenderness Course Course Course Narrative: 75-year-old female here with acute on chronic nausea, vomiting now with associated epigastric pain and generalized weakness with inability to maintain p.o. currently on chemotherapy for multiple myeloma. Will need labs, EKG, UA. Will place PIV and give antiemetic and normal saline bolus and reassess. 1653-labs show hypokalemia, hypomagnesemia, hypo calcemia. Pancytopenia which is unchanged. Positive orthostatics. Patient unable to tolerate p.o. potassium. Will give IV potassium and magnesium replacement. Will give normal saline bolus (#2). Chest x-ray shows no acute findings. Lipase is normal and with only mild discomfort on exam in the epigastric area CT is not indicated. In addition this vomiting seems to be a chronic problem for the patient and is not acute in nature. UA is pending. Will need admission. 1999-discussed patient with Dr. Oreilly. Requesting CT abdomen and pelvis to rule out acute pancreatitis, lactic acid and blood cultures, dose of albumin prior to admission. 2129-CT shows subtle pancreatitis with no necrosis, evidence of gastritis. Lactic 0.8. Blood pressure trend improving after NS and albumin. hypotension from dehydration and hypoalbuminemia and not infection. Dr Sainz will follow urine and treat as needed. MDM - Abdominal Pain MDM Narrative Medical decision making narrative: Electrolyte abnormality, gastritis, GERD, pancreatitis Medical Records Attestation: I reviewed the patient's medical records. Lab Data Attestation: I reviewed the patient's lab results. Result diagrams: 11/24/20 16:06 11/24/20 16:06 Labs: Lab Results 11/24/20 11/24/20 11/24/20 Range/Units 16:06 16:06 16:06 WBC 1.4 L (4.8-10.8) X10*3/uL RBC 2.68 L (4.20-5.50) X10*6/uL Hgb 8.8 L (12.0-16.0) g/dl Hct 26.5 L (37-47) % MCV 98.9 H (80-98) fL MCH 32.8 (27.0-33.0) pg MCHC 33.2 (31.0-35.0) g/dl RDW 19.0 H (11.0-16.0) % Plt Count 71 L (160-400) X10*3/uL MPV 13.1 H (9.4-12.3) fL Immature Gran % (Auto) 0.0 (0.0-0.4) % Neut % (Auto) 66.7 (45-73) % Lymph % (Auto) 25.4 (20-40) % Sanborn % (Auto) 7.2 (2-11) % Eos % (Auto) 0.7 (0-4) % Baso % (Auto) 0.0 (0-2) % Lymph # (Auto) 0.4 L (1.2-4.9) X10*3/uL Sanborn # (Auto) 0.1 (0.1-1.2) X10*3/uL Eos # (Auto) 0.0 (0.0-0.4) X10*3/uL Baso # (Auto) 0.0 (0.0-0.2) X10*3/uL Abs Immat Gran (auto) 0.00 (0.00-0.03) X10*3/uL Absolute Neuts (auto) 0.9 L (2.0-8.3) X10*3/uL Absolute Nucleated RBC 0.000 (0.0-0.012) X10*3/uL Nucleated RBC % (auto) 0.0 (0.0-0.2) /100WBC PT 15.5 H (10.8-13.0) SEC INR 1.3 H (0.9-1.1) Sodium 137 (135-145) mmol/L Potassium 2.9 L (3.3-5.1) mmol/L Chloride 105 (96-108) mmol/L Carbon Dioxide 23 (22-29) mmol/L Anion Gap 12 (12-20) BUN 7 L (9-16) mg/dL Creatinine 0.77 (0.5-1.4) mg/dL Estim Creat Clear Calc 75.7 Estimated GFR > 60 Random Glucose 141 H (60-115) mg/dL Lactic Acid (0.5-2.0) mmol/L Calcium 6.6 L (8.4-10.2) mg/dL Magnesium 1.3 L* (1.6-2.6) mg/dL Total Bilirubin 1.9 H (0.0-1.0) mg/dL Direct Bilirubin 0.8 H (0.0-0.5) mg/dL AST 21 (5-31) U/L ALT 26 (0-31) U/L Alkaline Phosphatase 53 (39-117) U/L Total Protein 6.0 L (6.5-8.0) g/dL Albumin 1.8 L (3.5-5.0) g/dL Lipase 19 (8-78) U/L Urine Color Urine Appearance Urine pH (5.0-8.0) Ur Specific Hankinson (1.005-1.025) Urine Protein (NEG-TRACE) MG/DL Urine Glucose (UA) (NEG) MG/DL Urine Ketones (NEG) MG/DL Urine Blood (NEG) Urine Nitrite (NEG) Ur Leukocyte Esterase (NEG) Urine RBC (0) /HPF Urine WBC (0-4) /HPF Ur Squamous Epith Cells /LPF Urine Bacteria /LPF Urine Mucus /LPF COVID-19 (RYAN) (Negative) COVID-19 Clin Com 11/24/20 11/24/20 11/24/20 Range/Units 18:54 20:55 21:03 WBC (4.8-10.8) X10*3/uL RBC (4.20-5.50) X10*6/uL Hgb (12.0-16.0) g/dl Hct (37-47) % MCV (80-98) fL MCH (27.0-33.0) pg MCHC (31.0-35.0) g/dl RDW (11.0-16.0) % Plt Count (160-400) X10*3/uL MPV (9.4-12.3) fL Immature Gran % (Auto) (0.0-0.4) % Neut % (Auto) (45-73) % Lymph % (Auto) (20-40) % Sanborn % (Auto) (2-11) % Eos % (Auto) (0-4) % Baso % (Auto) (0-2) % Lymph # (Auto) (1.2-4.9) X10*3/uL Sanborn # (Auto) (0.1-1.2) X10*3/uL Eos # (Auto) (0.0-0.4) X10*3/uL Baso # (Auto) (0.0-0.2) X10*3/uL Abs Immat Gran (auto) (0.00-0.03) X10*3/uL Absolute Neuts (auto) (2.0-8.3) X10*3/uL Absolute Nucleated RBC (0.0-0.012) X10*3/uL Nucleated RBC % (auto) (0.0-0.2) /100WBC PT (10.8-13.0) SEC INR (0.9-1.1) Sodium (135-145) mmol/L Potassium (3.3-5.1) mmol/L Chloride (96-108) mmol/L Carbon Dioxide (22-29) mmol/L Anion Gap (12-20) BUN (9-16) mg/dL Creatinine (0.5-1.4) mg/dL Estim Creat Clear Calc Estimated GFR Random Glucose (60-115) mg/dL Lactic Acid 0.8 (0.5-2.0) mmol/L Calcium (8.4-10.2) mg/dL Magnesium (1.6-2.6) mg/dL Total Bilirubin (0.0-1.0) mg/dL Direct Bilirubin (0.0-0.5) mg/dL AST (5-31) U/L ALT (0-31) U/L Alkaline Phosphatase (39-117) U/L Total Protein (6.5-8.0) g/dL Albumin (3.5-5.0) g/dL Lipase (8-78) U/L Urine Color YELLOW Urine Appearance CLEAR Urine pH 6.0 (5.0-8.0) Ur Specific Hankinson 1.015 (1.005-1.025) Urine Protein NEG (NEG-TRACE) MG/DL Urine Glucose (UA) NEG (NEG) MG/DL Urine Ketones NEG (NEG) MG/DL Urine Blood NEG (NEG) Urine Nitrite NEG (NEG) Ur Leukocyte Esterase TRACE H (NEG) Urine RBC 1-4 (0) /HPF Urine WBC 15-29 H (0-4) /HPF Ur Squamous Epith Cells 1+ /LPF Urine Bacteria 1+ /LPF Urine Mucus 1+ /LPF COVID-19 (RYAN) Negative (Negative) COVID-19 Clin Com See Note Imaging Data Chest x-ray: Attestation: I personally reviewed and interpreted this imaging study as follows: Radiologist's impression: [address] [id number] ReportSigned Patient: Klaudia Dow [facility]#: [id number]: 1945cct:[id number]/Sex: 75 / FADM Date: 11/24/20Loc: Jeff Canales: Ordering Physician: RANJIT LUCIO NP Date of Service: 11/24/20 Procedure(s): XR chest 2V Accession Number(s): [id number] cc: RANJIT LUCIO NP~ EXAMINATION: XR CHEST CLINICAL INFORMATION: Weakness. Rule out pneumonia. COMPARISON: Chest x-ray 07/26/2020 TECHNIQUE: 2 views of the chest were obtained. FINDINGS: Cardiac silhouette is normal in size. Right chest port in expected position with tip terminating within the distal SVC. The lungs are well aerated. There is no lobar consolidation. No pleural effusion or pneumothorax. Moderate diffuse degenerative changes of the spine. XR/XR chest 2V IMPRESSION: No acute pulmonary pathology. CT scan - abdomen: Attestation: I personally reviewed and interpreted this imaging study as follows: Radiologist's impression: IMPRESSION: Mild soft tissue stranding adjacent to the pancreatic head suggesting subtle pancreatitis. Correlation with amylase and lipase levels would be recommended. No pancreatic ductal dilatation, pancreatic calcifications, or surrounding fluid collections. Focal wall thickening to the gastric antrum and pyloric region possibly representing gastritis although this appearance could be secondary to focal peristaltic wave. This could be clinically correlated. Other more chronic appearing changes as described above ECG Data Attestation: I personally reviewed and interpreted this ECG as follows: ECG interpretation date: 11/24/20 ECG interpretation time: 16:36 Interpretation: NSR with rate 73, normal pr, normal qrs, normal qtc Discharge Plan Discharge Clinical Impression: Multiple myeloma, Weakness, Acute hypokalemia, Hypocalcemia, Hypomagnesemia, Vomiting, Orthostatic hypotension, Acute dehydration Patient Disposition: Admitted As Inpatient [facility] Past Medical History Attestation statement: The following information was validated with the patient. Source: old records reviewed and nursing notes reviewed Medical History Diabetes mellitus type 2, controlled, without complications Essential hypertension Hypercalcemia Hyperlipidemia, unspecified Hypoglycemia unawareness associated with type 2 diabetes mellitus Obstructive sleep apnea Pancytopenia Subclinical hyperthyroidism Surgical History History of knee replacement History of left hip replacement Family History Family History Father No problems noted. Mother Heart disease Brother Atrial fibrillation Brother Atrial fibrillation Brother Atrial fibrillation Social History Social History Household Members: Family Household Members Other:: 3 Housing: House Alcohol intake: never Smoking Status: Never smoker Use of substances other than those prescribed or required for medical reasons: No Advance Directives: No Advance Directives Information Provided: No Advance Directives Date on File: 10/09/20 service: No Current occupational status: retired
[2020-11-24] MEDS: 0.9 % Sodium Chloride 1,000 ML 999 ML IV ×2 (16:02→17:44)
[2020-11-24] MEDS: ondansetron HCL 4 MG/2 ML VIAL IVPUSH (16:02)
[2020-11-24 16:11] LABS: Eosinophils Percent Auto 0.7 % (0-4); Hematocrit 26.5 % (37-47); Hemoglobin 8.8 g/dl (12.0-16.0); MANUAL DIFF FLAG SCAN; Mean Corpuscular HGB Conc 33.2 g/dl (31.0-35.0); SCAN SMEAR FLAG 1
[2020-11-24 16:13] LABS: Lymphocytes Absolute Auto 0.4 X10*3/uL (1.2-4.9); Lymphocytes Percent Auto 25.4 % (20-40); Mean Corpuscular Hemoglobin 32.8 pg (27.0-33.0); Mean Corpuscular Volume 98.9 fL (80-98); Mean Platelet Volume 13.1 fL (9.4-12.3); Monocytes Absolute Auto 0.1 X10*3/uL (0.1-1.2); Monocytes Percent Auto 7.2 % (2-11); Neutrophils Absolute Auto 0.9 X10*3/uL (2.0-8.3); Neutrophils Percent Auto 66.7 % (45-73); Red Blood Count 2.68 X10*6/uL (4.20-5.50)
[2020-11-24 16:18] LABS: PLT ABN DIST 1; Platelet Count 71 X10*3/uL (160-400); White Blood Count 1.4 X10*3/uL (4.8-10.8)
[2020-11-24 16:21] LABS: INTERNATIONAL NORM RATIO 1.3 (0.9-1.1); Prothrombin Time 15.5 SEC (10.8-13.0)
[2020-11-24 16:42] LABS: Alanine Aminotransferase 26 U/L (0-31); Albumin Level 1.8 g/dL (3.5-5.0); Alkaline Phosphatase 53 U/L (39-117); Aspartate Amino Transferase 21 U/L (5-31); Bilirubin Direct 0.8 mg/dL (0.0-0.5); Bilirubin Total 1.9 mg/dL (0.0-1.0); Blood Urea Nitrogen 7 mg/dL (9-16); Creatinine Clr Calc Pharmacy 75.7; Estimated Glomerular Filt Rate > 60; Glucose Random 141 mg/dL (60-115); Lipase 19 U/L (8-78)
[2020-11-24 16:52] LABS: Magnesium 1.3 mg/dL (1.6-2.6)
[2020-11-24 16:53] LABS: Anion Gap 12 (12-20); Calcium 6.6 mg/dL (8.4-10.2); Carbon Dioxide 23 mmol/L (22-29); Chloride 105 mmol/L (96-108); Potassium 2.9 mmol/L (3.3-5.1); Sodium 137 mmol/L (135-145)
[2020-11-24] MEDS: Magnesium Sulfate/H2O 2 GM/50 ML PIGGYBACK IV (17:44)
[2020-11-24 19:15] LABS: COVID-19 Test Negative (Negative); IDNOW Serial# 9DD0AD1C
[2020-11-24] MEDS: Potassium Chloride/H20 10 MEQ/100 ML PIGGYBACK 100 MEQ IV ×2 (19:40→22:06)
--- NOTE | 2020-11-24 20:30 | PC.NURSE ---
Port de-accessed and power pac placed. Pt tolerated well, good blood return, dressed w/ biopatch and window dressing.
--- NOTE | 2020-11-24 20:34 | PC.NURSE ---
PT OFF TO CT
[2020-11-24] MEDS: iohexoL 350 MG/ML 100 ML INFUS..BTL IV (20:43)
[2020-11-24 21:20] LABS: Lactic Acid 0.8 mmol/L (0.5-2.0)
[2020-11-24 21:21] LABS: Glucose Urine UA NEG (NEG); Leukocyte Esterase Urine TRACE (NEG); Specific Gravity - Urine 1.015 (1.005-1.025); UACC Culture Trigger YES; Urine Blood NEG (NEG); Urine Ketones NEG (NEG); Urine Protein NEG (NEG-TRACE)
[2020-11-24 21:28] LABS: Appearance Urine CLEAR; Color Urine YELLOW; Nitrite Urine NEG (NEG)
[2020-11-24 21:29] LABS: Bacteria Urine 1+ /LPF; Mucus Urine 1+ /LPF; Squamous Epithelial Cell Urine 1+ /LPF
[2020-11-24] MEDS: Albumin Human 25 % 50 ML 100 ML IV (21:35)
--- NOTE | 2020-11-24 22:34 | PM.IMHP ---
History of Present Illness Date of Service: 11/24/20 Chief Complaint: Nausea/Vomiting 75year female with past medical history, obstructive sleep apnea, diabetes, multiple myeloma on chemotherapy, history of pancreatitis presented to the hospital chief complaint of nausea vomiting and poor oral intake 3 days. Patient mentions that she has been nausea and but over the 3 days she has increased symptoms and not able take anything p.o.. Also complains of mild epigastric discomfort. Denies any chest pain palpitations lightheadedness or dizziness. Denies any fevers chills. Mentioned that she been taking Lasix for her peripheral edema. Review of all other systems is negative except mentioned above ER course per ER team patient to mild epigastric discomfort, CT scan showed some chronic findings; inverted mild pancreatitis similar to CT scan of 11/08/20; patient was given IV fluids patient was ordered to be mildly hypotensive altered improvement in blood pressure. Also given 1 unit of albumin patient was severely hypoalbuminemic. Noted to be hypokalemic and hypomagnesemic-repleted. Urinalysis consistent UTI. Lactate was within normal PMFSH Medical History Diabetes mellitus type 2, controlled, without complications Essential hypertension Hypercalcemia Hyperlipidemia, unspecified Hypoglycemia unawareness associated with type 2 diabetes mellitus Obstructive sleep apnea Pancytopenia Subclinical hyperthyroidism Family History Father No problems noted. Mother Heart disease Brother Atrial fibrillation Brother Atrial fibrillation Brother Atrial fibrillation Surgical History History of knee replacement History of left hip replacement Social History Household Members: Children Household Members Other:: 3 Housing: House Do you presently have visiting nurse or other home services: Yes Alcohol intake: never Smoking Status: Never smoker Use of substances other than those prescribed or required for medical reasons: No Advance Directives Date on File: 10/09/20 Patient : No service: No Current occupational status: retired Meds Allergies Allergy/AdvReac Type Severity Reaction Status Date / Time codeine [CODEINE] Allergy Intermediate NAUSEA & Verified 10/25/20 10:17 VOMITING, vomiting lisinopril [LISINOPRIL] Allergy Intermediate COUGH, Verified 10/25/20 10:17 Coughing sulfamethoxazole Allergy Intermediate RASH Verified 10/25/20 10:17 [From BACTRIM] Active Medications: Current Medications Generic Name Dose Route Start Last Admin Trade Name Freq PRN Reason Stop Dose Admin Acetaminophen 650 mg 11/24/20 22:18 Acetaminophen Supp 650 Mg Supp.Rect [place] Q6H PRN Pain, Mild (Pain Scale 1-3) Acyclovir 400 mg 11/25/20 09:00 Acyclovir 200 Mg Capsule PO DAILY [facility] Aspirin 81 mg 11/25/20 09:00 Aspirin 81 Mg Tab.Chew PO DAILY [facility] Atovaquone 1,500 mg 11/25/20 09:00 Atovaquone 750 Mg/5 Ml Oral.Susp PO DAILY [facility] Docusate Sodium 100 mg 11/24/20 22:24 Docusate Sodium 100 Mg Capsule PO BID PRN Constipation Enoxaparin Sodium 40 mg 11/24/20 23:00 Enoxaparin Sodium 40 Mg/0.4 Ml Syringe SUBCUT Q24H [facility] Furosemide 20 mg 11/25/20 09:00 Furosemide 20 Mg Tablet PO DAILY [facility] Protocol Ceftriaxone Sodium 1 gm/ 50 mls @ 100 mls/hr 11/24/20 23:00 Sodium Chloride IV Q24H [facility] Metoclopramide HCl 5 mg 11/25/20 07:30 Metoclopramide Hcl 5 Mg Tablet PO TIDAC [facility] Non-Formulary Medication 15 mg 11/25/20 09:00 Lenalidomide [Revlimid] PO DAILY [facility] Omeprazole 20 mg 11/25/20 06:30 Omeprazole 20 Mg Capsule.Dr PO DAILY@0630 [facility] Ondansetron HCl 4 mg 11/24/20 22:18 Ondansetron Hcl 4 Mg/2 Ml Vial IVPUSH Q8H PRN Nausea and Vomiting Pharmacy Consult 1 each 11/24/20 19:48 Consult Rx Perform Med Rec MISCELLANE ONCE PRN Consult order Polyethylene Glycol 17 gm 11/24/20 22:24 Polyethylene Glycol 3350 17 Gm Powd.Pack PO DAILY PRN Constipation Senna 17.2 mg 11/24/20 22:18 Sennosides 8.6 Mg Tablet PO BEDTIME PRN Constipation Senna 8.6 mg 11/24/20 22:24 Sennosides 8.6 Mg Tablet PO BEDTIME PRN Constipation Sodium Chloride 3 ml 11/25/20 00:00 0.9 % Sodium Chloride Flush 3 M[facility] Medications Medication Instructions Recorded Confirmed Last Taken Type aspirin 81 mg chewable tablet 81 mg PO DAILY 04/22/20 12/08/20 11/24/20 History docusate sodium 100 mg capsule 100 mg PO BID PRN 04/22/20 12/08/20 10/07/20 History insulin aspart U-100 100 unit/mL 2 - 12 unit SUBCUT TID 04/22/20 12/08/20 Unknown History (3 mL) subcutaneous pen omeprazole 20 mg capsule,delayed 20 mg PO BID 04/22/20 12/08/20 11/24/20 History release polyethylene glycol 3350 [Miralax] 17 g PO DAILY PRN 10/06/20 12/08/20 10/07/20 History sennosides [senna] 8.6 mg PO BEDTIME PRN 10/09/20 12/08/20 10/07/20 History furosemide 20 mg tablet 20 mg PO DAILY 10/29/20 12/08/20 11/24/20 History Physical Exam Vital Signs and Narrative: Vital Signs: Last Vital Signs Temp 98.0 F 11/24/20 15:49 Pulse 82 11/24/20 19:41 Resp 15 11/24/20 19:41 BP 105/48 L 11/24/20 21:28 Pulse Ox 96 11/24/20 19:41 Body Mass Index 37.3 Gen: Appears be in no acute distress; high BMI HEENT: NCAT, Moist mucosa. Pulmonary: Vesicular breath sounds, fair air entry; Port-A-Cath site normal CVS: Normal S1-S2 Abdomen: BS+, Soft, Nontender Extremities: Warm well perfused; +pitting edema noticed Neuro: Alert and awake. Results Labs CBC and Chem 7: 11/26/20 07:55 11/26/20 07:55 Labs: Laboratory Results - last 24 hr 11/24/20 11/24/20 11/24/20 16:06 16:06 16:06 MCV 98.9 H MCH 32.8 MCHC 33.2 RDW 19.0 H Plt Count 71 L MPV 13.1 H Immature Gran % (Auto) 0.0 Neut % (Auto) 66.7 Lymph % (Auto) 25.4 [place] % (Auto) 7.2 Eos % (Auto) 0.7 Baso % (Auto) 0.0 Lymph # (Auto) 0.4 L [place] # (Auto) 0.1 Eos # (Auto) 0.0 Baso # (Auto) 0.0 Abs Immat Gran (auto) 0.00 Absolute Neuts (auto) 0.9 L Absolute Nucleated RBC 0.000 Nucleated RBC % (auto) 0.0 PT 15.5 H INR 1.3 H Anion Gap 12 Estim Creat Clear Calc 75.7 Estimated GFR > 60 Random Glucose 141 H Lactic Acid Calcium 6.6 L Magnesium 1.3 L* Total Bilirubin 1.9 H Direct Bilirubin 0.8 H AST 21 ALT 26 Alkaline Phosphatase 53 Total Protein 6.0 L Albumin 1.8 L Lipase 19 Urine Color Urine Appearance Urine pH Ur Specific [place] Urine Protein Urine Glucose (UA) Urine Ketones Urine Blood Urine Nitrite Ur Leukocyte Esterase Urine RBC Urine WBC Ur Squamous Epith Cells Urine Bacteria Urine Mucus COVID-19 (RYAN) COVID-19 [employer] 11/24/20 11/24/20 11/24/20 18:54 20:55 21:03 MCV MCH MCHC RDW Plt Count MPV Immature Gran % (Auto) Neut % (Auto) Lymph % (Auto) [place] % (Auto) Eos % (Auto) Baso % (Auto) Lymph # (Auto) [place] # (Auto) Eos # (Auto) Baso # (Auto) Abs Immat Gran (auto) Absolute Neuts (auto) Absolute Nucleated RBC Nucleated RBC % (auto) PT INR Anion Gap Estim Creat Clear Calc Estimated GFR Random Glucose Lactic Acid 0.8 Calcium Magnesium Total Bilirubin Direct Bilirubin AST ALT Alkaline Phosphatase Total Protein Albumin Lipase Urine Color YELLOW Urine Appearance CLEAR Urine pH 6.0 Ur Specific [place] 1.015 Urine Protein NEG Urine Glucose (UA) NEG Urine Ketones NEG Urine Blood NEG Urine Nitrite NEG Ur Leukocyte Esterase TRACE H Urine RBC 1-4 Urine WBC 15-29 H Ur Squamous Epith Cells 1+ Urine Bacteria 1+ Urine Mucus 1+ COVID-19 (RYAN) Negative COVID-19 Clin Com See Note Imaging Radiologist's Impressions: Impressions Chest X-Ray 11/24/20 16:56 IMPRESSION: No acute pulmonary pathology. Abdomen/Pelvis CT 11/24/20 19:29 IMPRESSION: Mild soft tissue stranding adjacent to the pancreatic head suggesting subtle pancreatitis. Correlation with amylase and lipase levels would be recommended. No pancreatic ductal dilatation, pancreatic calcifications, or surrounding fluid collections. Focal wall thickening to the gastric antrum and pyloric region possibly representing gastritis although this appearance could be secondary to focal peristaltic wave. This could be clinically correlated. Other more chronic appearing changes as described above Assessment and Plan (1) Acute hypokalemia: Status: Acute 75-year-old female with past medical history of hyperlipidemia, multiple myeloma on chemotherapy, recent pancreatitis presented to the hospital with a chief complaint of nausea vomiting and abdominal discomfort. Also complains the portal intake. Admitted for further management. Nausea/vomiting/epigastric discomfort and: CT scan showed mildly pancreatitis; patient is due for colonoscopy as outpatient. Will consult Gastroenterology. Supportive care. Hypoalbuminemia: In the setting Will oral intake. Added protein supplements to the diet. Hypokalemia/hypomagnesemia: In the setting of Will oral intake. Repleted. Will continue to monitor. UTI: Continue ceftriaxone. Follow up cultures. Hypotension: In the setting dehydration/poor intake. Improving. Patient asymptomatic. Monitor vitals. History of multiple myeloma: Patient follows Dr. Raman; on chemotherapy every 2 weeks. Mentioned that she is not taking Revlimid regularly. Peripheral edema: Likely 3rd spacing secondary to hypoalbuminemia. Given albumin. Hypocalcemia: When corrected to albumin calcium level is 8.2. DVT prophylaxis: Lovenox Code status: Full code
[2020-11-24] MEDS: cefTRIAXone sodium 1 GM in 0.9 % Sodium Chloride 50 ML IV (23:44)
[2020-11-24] MEDS: Enoxaparin Sodium 40 MG/0.4 ML SYRINGE SUBCUT (23:47)
[2020-11-24] MEDS: 0.9 % Sodium Chloride 500 ML 250 ML IV (23:51)
[2020-11-25] VITALS (9 sets, daily range): BP systolic 94–107; BP diastolic 46–64; PULSE 71–83; RESP 14–20; TEMP 36–37.1; O2SAT 93–99; BMI 37.3
[2020-11-25] MEDS: Albumin Human 25 % 100 ML IV (00:02)
[2020-11-25 00:13] LABS: Anion Gap 10 (12-20); Blood Urea Nitrogen 7 mg/dL (9-16); Calcium 6.3 mg/dL (8.4-10.2); Carbon Dioxide 24 mmol/L (22-29); Chloride 107 mmol/L (96-108); Creatinine Clr Calc Pharmacy 84.5; Estimated Glomerular Filt Rate > 60; Glucose Random 142 mg/dL (60-115); Magnesium 1.5 mg/dL (1.6-2.6); Phosphorus 3.3 mg/dL (2.7-4.5); Sodium 138 mmol/L (135-145)
--- NOTE | 2020-11-25 00:25 | PC.NURSE ---
nurse to nurse report given to Liberty SANCHEZ
[2020-11-25] MEDS: 0.9 % Sodium Chloride Flush 3 ML SYRINGE IVFLUSH ×3 (00:26→16:42)
[2020-11-25] MEDS: Potassium Chloride/H20 10 MEQ/100 ML PIGGYBACK 100 MEQ IV ×2 (01:01→02:02)
[2020-11-25 01:19] LABS: Glucose, Whole Blood 118 mg/dL (60-115)
[2020-11-25] MEDS: Omeprazole 20 MG CAPSULE.DR PO ×2 (05:48→19:22)
[2020-11-25 06:46] LABS: Eosinophils Percent Auto 1.6 % (0-4); Lymphocytes Absolute Auto 0.3 X10*3/uL (1.2-4.9); Lymphocytes Percent Auto 42.2 % (20-40); MANUAL DIFF FLAG SCAN; Mean Corpuscular HGB Conc 32.8 g/dl (31.0-35.0); Mean Corpuscular Volume 100.5 fL (80-98); Mean Platelet Volume 12.5 fL (9.4-12.3); Monocytes Absolute Auto 0.1 X10*3/uL (0.1-1.2); Monocytes Percent Auto 9.4 % (2-11); Neutrophils Absolute Auto 0.3 X10*3/uL (2.0-8.3); Neutrophils Percent Auto 46.8 % (45-73); Red Blood Count 1.97 X10*6/uL (4.20-5.50); Red Cell Distribution Width 19.1 % (11.0-16.0); SCAN SMEAR FLAG 1
[2020-11-25] MEDS: ondansetron HCL 4 MG/2 ML VIAL IVPUSH (06:46)
[2020-11-25 07:14] LABS: Glucose, Whole Blood 102 mg/dL (60-115)
[2020-11-25 07:33] LABS: Anion Gap 10 (12-20); Blood Urea Nitrogen 8 mg/dL (9-16); Calcium 6.4 mg/dL (8.4-10.2); Carbon Dioxide 25 mmol/L (22-29); Chloride 108 mmol/L (96-108); Creatinine Clr Calc Pharmacy 85.7; Estimated Glomerular Filt Rate > 60; Glucose Random 107 mg/dL (60-115); Magnesium 1.6 mg/dL (1.6-2.6); Potassium 2.9 mmol/L (3.3-5.1); Sodium 140 mmol/L (135-145)
[2020-11-25] MEDS: Acyclovir 200 MG CAPSULE 400 MG PO (08:03)
[2020-11-25] MEDS: Metoclopramide HCl 5 MG TABLET PO ×3 (08:03→16:31)
[2020-11-25] MEDS: Aspirin 81 MG TAB.CHEW PO (08:03)
[2020-11-25] MEDS: Atovaquone 750 MG/5 ML ORAL.SUSP 1500 MG PO (08:03)
[2020-11-25 08:42] LABS: White Blood Count 0.6 X10*3/uL (4.8-10.8)
[2020-11-25 08:43] LABS: Hematocrit 19.8 % (37-47); Hemoglobin 6.5 g/dl (12.0-16.0); Platelet Count 46 X10*3/uL (160-400)
[2020-11-25 08:46] LABS: SLIDE REVIEW VERIFIED
--- NOTE | 2020-11-25 08:46 | MHC.CM.PN ---
IMM 11/25/20 Female DX N/V She requires assist with ADLs DTR is Primary caregiver. She uses a walker for unsteady gait. A WC is required for distances. HCP on file. DP home with resumption of [facility]. Pts dtr will provide transportation. CM will follow to assess for a change in Pts needs at [place].
[2020-11-25] MEDS: Magnesium Oxide 400 MG TABLET PO ×2 (10:22→16:31)
[2020-11-25] MEDS: Potassium Chloride ER 20 MEQ TAB.ER.PRT 40 MEQ PO (10:22)
[2020-11-25] MEDS: Lactated Ringers 1,000 ML 100 ML IVCONT ×2 (10:23→19:25)
[2020-11-25 11:19] LABS: Glucose, Whole Blood 166 mg/dL (60-115)
[2020-11-25] MEDS: Insulin Lispro 100 UNIT/ML 3 ML VIAL SUBCUT ×3 (13:00→20:36)
--- NOTE | 2020-11-25 13:33 | P.CNHO_ITS ---
Subjective - Subjective Chief complaint: Nausea and emesis Patient: known to practice within the last 3 years Consult date: 11/25/20 Primary Care Provider: Iveth Cowart MD Medical Summary: DIAGNOSIS: 1. Hypercalcemia. 2. Multiple myeloma. CURRENT THERAPY: RVD. Received Zometa 4 mg. HPI - Consult Narrative Reason for consult: Patient with multiple myeloma, recurrent admission for nausea/emesis Narrative: Klaudia Dow is a 75 year old female multiple myeloma who is admitted for recurrent nausea and emesis. She started treatment a few weeks ago with regimen consisting of Revlimid/Velcade and Decadron. She states this is her 3rd cycle, yesterday she had severe weakness associated with nausea and emesis. She was advised to go to the emergency room. She had a CT abdomen/pelvis with contrast which showed mild changes of pancreatitis and focal wall thickening in the gastric antrum/pyloric region. Katherine hernandez has been admitted for supportive care, she is receiving IV fluids and reports feeling better today. She has had no fever or chills. Today she was able to eat some breakfast. She does not have abdominal pain but continues to feel nauseous. Review of Systems - Constitutional Reports as per HPI, Reports fatigue, Reports lack of energy, Reports malaise - Neurologic Reports no additional neurologic complaints, Denies abnormal speech, Denies dizziness, Denies headache(s), Denies numbness, Denies tingling, Reports w [facility] Oncology Screenings - ECOG Performance Status ECOG Performance Status: 0 PMFSH Medical History: Medical History (Last Reviewed 11/24/20 @ 15:54 by Iris Wilson NP) Diabetes mellitus type 2, controlled, without complications Essential hypertension Hypercalcemia Hyperlipidemia, unspecified Hypoglycemia unawareness associated with type 2 diabetes mellitus Obstructive sleep apnea Pancytopenia Subclinical hyperthyroidism Family History: Family History (Last Reviewed 11/24/20 @ 15:54 by Iris Wilson NP) Father No problems noted. Mother Heart disease Brother Atrial fibrillation Brother Atrial fibrillation Brother Atrial fibrillation Surgical History: Surgical History (Last Reviewed 11/24/20 @ 15:54 by Iris Wilson NP) History of knee replacement History of left hip replacement Social History: Social History (Last Reviewed 11/24/20 @ 15:54 by Iris Wilson NP) Living Situation History: Household Members: Children Household Members Other:: 3 Housing: House Do you presently have visiting nurse or other home services: Yes Alcohol History: Alcohol intake: never Alcohol History Details: Alcohol intake frequency: does not drink Tobacco History: Smoking Status: Never smoker Substance Use History: Use of substances other than those prescribed or required for medical reasons : No Currently Displaying Signs/Symptoms of Drug Intoxication Withdrawal: No Domestic Abuse History: Have you been hit, kicked, punched, or otherwise hurt by someone within the past year? If so, by whom?: No Do you feel safe in your current relationship?: No Current Relationship Is there a partner from a previous relationship who is making you feel unsafe now?: No Are you made to feel afraid or neglected: No Healthcare Practices: Spiritual Healthcare Practices: no Roman Catholic Healthcare Practices: no Cultural Healthcare Practices: no Advance Directives: Advance Directives: No Advance Directives Information Provided: No Advance Directives Date on File: 10/09/20 Homicidal Assessment: Do you have thoughts of harming others: None Do you have a plan to hurt others: No Plan Nutrition Assessment: Recently lost weight without trying: No Nutrition Risks: Poor intake 0-25% >4 days Patient : No : No Poor oral hygiene: No Occupation Assessmet: service: No Current occupational status: retired Smoking status: Never smoker Home Medications and Allergies Current Medications: Current Medications Generic Name Dose Route Start Last Admin Trade Name Freq PRN Reason Stop Dose Admin Acetaminophen 650 mg 11/24/20 22:18 Acetaminophen Supp 650 Mg Supp.Rect [place] Q6H PRN Pain, Mild (Pain Scale 1-3) Acyclovir 400 mg 11/25/20 09:00 11/25/20 08:03 Acyclovir 200 Mg Capsule PO 400 mg DAILY DONAVAN Administration Atovaquone 1,500 mg 11/25/20 09:00 11/25/20 08:03 Atovaquone 750 Mg/5 Ml Oral.Susp PO 1,500 mg DAILY [facility] Administration Docusate Sodium 100 mg 11/24/20 22:24 Docusate Sodium 100 Mg Capsule PO BID PRN Constipation Lactated Ringer's 1,000 mls @ 100 mls/hr 11/25/20 08:30 11/25/20 10:23 Lr IVCONT 100 mls/hr .Q10H DONAVAN Administration Dexamethasone Sodium Phosphate 52 mls @ 208 mls/hr 11/25/20 13:32 20 mg/ Sodium Chloride IV 11/25/20 13:46 ONCE ONE Insulin Human Lispro 0 unit 11/25/20 07:30 11/25/20 13:00 Insulin Lispro 100 Unit/Ml 3 Ml Vial SUBCUT 2 unit QIDACHS [facility] Administration Protocol Magnesium Oxide 400 mg 11/25/20 08:30 11/25/20 10:22 Magnesium Oxide 400 Mg Tablet PO 400 mg BIDPC [facility] Administration Metoclopramide HCl 5 mg 11/25/20 07:30 11/25/20 13:00 Metoclopramide Hcl 5 Mg Tablet PO 5 mg TIDAC [facility] Administration Omeprazole 20 mg 11/25/20 06:30 11/25/20 05:48 Omeprazole 20 Mg Capsule.Dr PO 20 mg DAILY@0630 [facility] Administration Ondansetron HCl 4 mg 11/24/20 22:18 11/25/20 06:46 Ondansetron Hcl 4 Mg/2 Ml Vial IVPUSH 4 mg Q8H PRN Administration Nausea and Vomiting Pharmacy Consult 1 each 11/24/20 19:48 Consult Rx Perform Med Rec MISCELLANE ONCE PRN Consult order Polyethylene Glycol 17 gm 11/24/20 22:24 Polyethylene Glycol 3350 17 Gm Powd.Pack PO DAILY PRN Constipation Senna 17.2 mg 11/24/20 22:18 Sennosides 8.6 Mg Tablet PO BEDTIME PRN Constipation Senna 8.6 mg 11/24/20 22:24 Sennosides 8.6 Mg Tablet PO BEDTIME PRN Constipation Sodium Chloride 3 ml 11/25/20 00:00 11/25/20 08:04 0.9 % Sodium Chloride Flush 3 Ml Syringe IVFLUSH 3 ml QSHIFT [facility] Administration Home Medications Medication Instructions Recorded Confirmed Type aspirin 81 mg chewable tablet 81 mg PO DAILY 04/22/20 11/24/20 History docusate sodium 100 mg capsule 100 mg PO BID PRN 04/22/20 11/24/20 History insulin aspart U-100 100 unit/mL 2 - 12 unit SUBCUT TID 04/22/20 11/24/20 History (3 mL) subcutaneous pen omeprazole 20 mg capsule,delayed 20 mg PO DAILY 04/22/20 11/24/20 History release polyethylene glycol 3350 [Miralax] 17 g PO DAILY PRN 10/06/20 11/24/20 History sennosides [senna] 8.6 mg PO BEDTIME PRN 10/09/20 11/24/20 History furosemide 20 mg tablet 20 mg PO DAILY 10/29/20 11/24/20 History Allergies Allergy/AdvReac Type Severity Reaction Status Date / Time codeine [CODEINE] Allergy Intermediate NAUSEA & Verified 10/25/20 10:17 VOMITING, vomiting lisinopril [LISINOPRIL] Allergy Intermediate COUGH, Verified 10/25/20 10:17 Coughing sulfamethoxazole Allergy Intermediate RASH Verified 10/25/20 10:17 [From BACTRIM] Physical Exam Vital signs: Vital Signs Temp 97 F 11/25/20 11:31 Pulse 77 11/25/20 11:31 Resp 16 11/25/20 11:31 BP 107/46 L 11/25/20 11:31 Pulse Ox 94 11/25/20 11:31 Intake & Output 11/24/20 11/25/20 11/25/20 18:59 06:59 18:59 Intake Total 2000 / 2900 900 / 2900 Output Total 100 / 100 Balance 2000 / 2800 800 / 2800 Intake: Intake, IV Amount 2000 / 2900 900 / 2900 0.9 % Sodium Chloride 1,000 ml 2000 / 2000 @ 999 mls/hr IV .Q1H1M STA Rx#: [id number] 0.9 % Sodium Chloride 500 ml @ 250 / 250 250 mls/hr IV .Q2H DONAV[facility] Rx#: [id number] Albumin Human 25 % 100 ml @ 100 100 / 100 mls/hr IV ONCE ONE Rx#: [id number] Albumin Human 25 % 50 ml @ 100 50 / 50 mls/hr IV ONCE ONE Rx#: [id number] Magnesium Sulfate/H2O 2 gm In 50 / 50 50 ml @ 25 mls/hr IV ONCE ONE Rx#:[id number] Potassium Chloride/H20 10 meq 400 / 400 In 100 ml @ 100 mls/hr IV Q1H [facility] Rx#:[id number] cefTRIAXone sodium 1 gm In 0.9 50 / 50 % Sodium Chloride 50 ml @ 100 mls/hr IV Q24H [facility] Rx#: [id number] Output: Output, Emesis Amount 100 / 100 Other: Last Bowel Movement 11/25/20 11/25/20 Stool Bedside Commode Stool Amount Copious Stool Color Green Emesis Color Clear Weight 101.605 kg Weight 101.605 kg - Constitutional Present: mild distress - Routine HEENT Exam Head: Present: normal inspection Eye: Present: EOMI, conjunctivae pale - Routine Neck Exam Present: supple - Routine Respiratory Exam Present: CTAB - Routine Cardiovascular Exam Cardiovascular: Present: S1, S2 - Routine Abdominal Exam Absent: firm, guarding Hem/Onc Consult Result - Labs CBC & Chem 7: 11/25/20 05:47 11/25/20 05:47 Labs: Short CBC 11/24/20 11/25/20 Range/Units 16:06 05:47 WBC 1.4 L 0.6 L* (4.8-10.8) X10*3/uL Hgb 8.8 L 6.5 L* D (12.0-16.0) g/dl Hct 26.5 L 19.8 L* D (37-47) % Plt Count 71 L 46 L D (160-400) X10*3/uL BMP 11/24/20 11/24/20 11/24/20 16:06 23:41 23:41 Sodium 137 Cancelled 138 Potassium 2.9 L Cancelled 3.0 L Chloride 105 Cancelled 107 Carbon Dioxide 23 Cancelled 24 BUN 7 L Cancelled 7 L Creatinine 0.77 Cancelled 0.69 Calcium 6.6 L Cancelled 6.3 L 11/25/20 05:47 Sodium 140 Potassium 2.9 L Chloride 108 Carbon Dioxide 25 BUN 8 L Creatinine 0.68 Calcium 6.4 L Liver Function 11/24/20 Range/Units 16:06 Total Bilirubin 1.9 H (0.0-1.0) mg/dL Direct Bilirubin 0.8 H (0.0-0.5) mg/dL AST 21 (5-31) U/L ALT 26 (0-31) U/L Alkaline Phosphatase 53 (39-117) U/L Albumin 1.8 L (3.5-5.0) g/dL Urine 11/24/20 Range/Units 21:03 Urine Color YELLOW Urine Appearance CLEAR Urine pH 6.0 (5.0-8.0) Ur Specific [place] 1.015 (1.005-1.025) Urine Protein NEG (NEG-TRACE) MG/DL Urine Glucose (UA) NEG (NEG) MG/DL Assessment and Plan (1) Multiple myeloma Status: Acute Qualifiers: 1. This is a 75-year-old woman with IgG kappa multiple myeloma, [place] stage III, poor risk cytogenetics who just started treatment on RVD regimen. She is now admitted with recurrent nausea and emesis. She has had these symptoms even prior to starting treatment. She is doing somewhat better with supportive care. IV antiemetics and IV fluids are helping. 2. Pancytopenia. Agree with transfusion of 2 units PRBC. Granix to improve her WBC count. She is on prophylactic antibiotics, Acyclovir and Mepron. She has received a dose of ceftriaxone. 3. Continue with DVT prophylaxis and GI prophylaxis.
--- NOTE | 2020-11-25 13:50 | HO.PM.IMPN ---
Subjective Subjective Date of Service: 11/25/20 Interval History: nasuea improved Cardiovascular Cardiovascular: Reports no additional cardiovascular complaints Respiratory Respiratory: Reports no additional respiratory complaints Physical Exam Vital Signs: Vital Signs: Last Vital Signs Temp 97 F 11/25/20 11:31 Pulse 77 11/25/20 11:31 Resp 16 11/25/20 11:31 BP 107/46 L 11/25/20 11:31 Pulse Ox 94 11/25/20 11:31 Body Mass Index 37.3 General: AO X 3, no acute distress Resp: CTA bilateral CVS: S1,S2,RRR GI: soft, non tender, non distended Neuro: motor grossly intact Psych: appropriate affect Objective Data Current Medications Generic Name Dose Route Start Last Admin Trade Name Freq PRN Reason Stop Dose Admin Acetaminophen 650 mg 11/24/20 22:18 Acetaminophen Supp 650 Mg Supp.Rect TX Q6H PRN Pain, Mild (Pain Scale 1-3) Acyclovir 400 mg 11/25/20 09:00 11/25/20 08:03 Acyclovir 200 Mg Capsule PO 400 mg DAILY DONAVAN Administration Atovaquone 1,500 mg 11/25/20 09:00 11/25/20 08:03 Atovaquone 750 Mg/5 Ml Oral.Susp PO 1,500 mg DAILY DONAVAN Administration Docusate Sodium 100 mg 11/24/20 22:24 Docusate Sodium 100 Mg Capsule PO BID PRN Constipation Lactated Ringer's 1,000 mls @ 100 mls/hr 11/25/20 08:30 11/25/20 10:23 Lr IVCONT 100 mls/hr .Q10H DONAVAN Administration Insulin Human Lispro 0 unit 11/25/20 07:30 11/25/20 13:00 Insulin Lispro 100 Unit/Ml 3 Ml Vial SUBCUT 2 unit QIDACHS DONAVAN Administration Protocol Magnesium Oxide 400 mg 11/25/20 08:30 11/25/20 10:22 Magnesium Oxide 400 Mg Tablet PO 400 mg BIDPC DONAVAN Administration Metoclopramide HCl 5 mg 11/25/20 07:30 11/25/20 13:00 Metoclopramide Hcl 5 Mg Tablet PO 5 mg TIDAC DONAVAN Administration Omeprazole 20 mg 11/25/20 06:30 11/25/20 05:48 Omeprazole 20 Mg Capsule.Dr PO 20 mg DAILY@0630 DONAVAN Administration Ondansetron HCl 4 mg 11/24/20 22:18 11/25/20 06:46 Ondansetron Hcl 4 Mg/2 Ml Vial IVPUSH 4 mg Q8H PRN Administration Nausea and Vomiting Pharmacy Consult 1 each 11/24/20 19:48 Consult Rx Perform Med Rec MISCELLANE ONCE PRN Consult order Polyethylene Glycol 17 gm 11/24/20 22:24 Polyethylene Glycol 3350 17 Gm Powd.Pack PO DAILY PRN Constipation Senna 17.2 mg 11/24/20 22:18 Sennosides 8.6 Mg Tablet PO BEDTIME PRN Constipation Senna 8.6 mg 11/24/20 22:24 Sennosides 8.6 Mg Tablet PO BEDTIME PRN Constipation Sodium Chloride 3 ml 11/25/20 00:00 11/25/20 08:04 0.9 % Sodium Chloride Flush 3 Ml Syringe IVFLUSH 3 ml QSHIFT DONAVAN Administration Labs CBC & Chem 7: 11/25/20 05:47 11/25/20 05:47 Microbiology Microbiology Results: Microbiology 11/24/20 21:30 Urine clean catch - Clean Catch Midstream Urine Culture - Final Assessment and Plan (1) Multiple myeloma: Status: Acute Assessment and Plan: 75-year-old female with past medical history of multiple myeloma presented with nausea, vomitting anemia transfuse, monitor hypokalemia replace, monitor MM management per hematology pancreatitis gi eval no evidence of uti dc antibiotics vte prophylaxis mechacnical due to pancytopenia
[2020-11-25 14:39] LABS: Alanine Aminotransferase 18 U/L (0-31); Alkaline Phosphatase 39 U/L (39-117); Aspartate Amino Transferase 15 U/L (5-31); Bilirubin Direct 0.6 mg/dL (0.0-0.5); Total Protein 5.1 g/dL (6.5-8.0)
[2020-11-25 16:11] LABS: Glucose, Whole Blood 182 mg/dL (60-115)
[2020-11-25] MEDS: Tbo-Filgrastim 300 MCG/0.5 ML SYRINGE SUBCUT (16:39)
[2020-11-25] MEDS: DULoxetine HCl 20 MG CAPSULE.DR PO (18:09)
--- NOTE | 2020-11-25 18:17 | P.EN_ITS ---
Event Note Date of Service: 11/25/20 Event Note: GI Consult-Full note dictated. Hx via patient, her daughter, and the EMR. Imp: 75 yo female in the midst of treatment for multiple myeloma, having received her 3rd round of chemo yesterday, with ongoing issues with anorexia, N/V, and diarrhea. She appears to have developed a pancytopenia and is receiving blood transfusions at this time. She had COVID and reported pancreatitis in 07/2020 at [facility], with associated pain, N/V, and diarrhea. Prior to that she was not having any GI issues. Since then she has had continued GI issues with anorexia, N/V, and some diarrhea. Her studies here at [facility] in 09/2020, 10/2020, and presently don't show any impressive findings to suggest pancreatitis is a significant ongoing issue. Currently her abdominal exam is benign, her lipase level was normal, and the CT showed only minimal, if any pancreatic findings. Overall, I suspect that her current GI issues are more related to her underlying illness of the myeloma and chemotherapy. I don't see anything to suggest any ongoing significant pancreatitis. She may have some component of a diabetic gastroparesis that has been exacerbated by her illness as well. Rec: Maximize supportive and symptomatic care with PPI, anti-emetics, diet as tolerated, F/U labs. I would hold off on any further w/u for the pancreatitis at this point given no signs of onging pancreatitis and her pancytopenia. I don't think an EUS would be helpful at this time. If her UGI complaints worsen I would recommend switching her to a trial of IV PPI and IV reglan, rather than po. Will follow as needed. D/W patient and daughter in detail. Thanks
--- NOTE | 2020-11-25 18:52 | PC.NURSE ---
Saw that pt had RADHA in her history, asked pt if she used CPAP at home - states she has one but doesnt use it and is not interested in wearing while inpatient.
[2020-11-25 20:04] LABS: Glucose, Whole Blood 241 mg/dL (60-115)
[2020-11-26] VITALS: BP 93/55; PULSE 78; RESP 18; TEMP 36.8; O2SAT 98
[2020-11-26 04:00] VITALS: BP 116/65; PULSE 72; RESP 18; TEMP 36.4; O2SAT 98
--- NOTE | 2020-11-26 04:39 | CONS_ITS ---
DATE OF SERVICE: 11/25/2020 REASON FOR CONSULTATION: Vomiting, diarrhea, and history of pancreatitis. History has been obtained from the patient, her daughter, and the medical record. HISTORY OF PRESENT ILLNESS: The patient is a 75-year-old female, with a recent diagnosis of multiple myeloma, for which she is currently receiving chemotherapy. I last saw her in 2018, when she underwent a colonoscopy with the removal of a small polyp. Prior to July of this year, she was feeling well. However, she developed COVID and was at [facility] for about 3 weeks in relation to that. Her primary symptoms at that time were GI related with nausea, vomiting, diarrhea, abdominal pain, and apparent pancreatitis. I do not have any of those records, but she describes that she did have pancreatitis based on her laboratories and CAT scan and was seen by the GI Service there. She did not undergo any procedures. After going home, she has continued to have problems with ongoing issues of nausea, vomiting, anorexia and diarrhea, as well as intermittent abdominal pain. She was diagnosed with myeloma recently and underwent bone marrow biopsy and received her third round of chemotherapy yesterday. She has developed the pancytopenia and is requiring transfusions today. She has had hospitalizations here in September, October, and currently for issues with vomiting, diarrhea, anorexia, and some dehydration. In reviewing all those previous hospitalizations and today's hospitalization, her pancreatic enzymes have been essentially normal, as have her LFTs. Her CAT scans of the pancreas show very minimal if any changes consistent with pancreatitis. At the present time, abdominal pain is not a major issue for her. Rather, it seems that anorexia, vomiting and diarrhea are the main issues at the present time. She has not noticed any hematochezia, melena, hematemesis, nor coffee-grounds emesis. She is receiving a regular diet, but is not particularly hungry as the food does not appeal to her, although she is tolerating her nutritional supplements. She does have underlying diabetes, but prior to July, she was not having any upper GI complaints to suggest an underlying gastroparesis. She has no family history of pancreatitis nor significant upper GI pathology. She does have a family history of a sister with colon cancer. She does not use any significant amounts of alcohol at home. She denies any history of ulcer disease. She was on a single low-dose aspirin at home, but no NSAIDs. Here in the hospital, she is being treated with oral PPI, oral Reglan and antiemetics. MEDICATIONS: Her present medications include acetaminophen, oral acyclovir, Mepron, Colace p.r.n., Cymbalta, insulin, magnesium, Reglan 5 mg p.o. t.i.d. before meals, Prilosec 20 mg daily, Zofran 4 mg q.8h. p.r.n., MiraLAX p.r.n., potassium, and Senokot p.r.n. PAST MEDICAL HISTORY: Recent diagnosis of multiple myeloma as above. COVID infection with apparent pancreatitis in July. Colonoscopy with removal of polyps in the past, most recently as of 2018. Sleep apnea. Insulin-dependent diabetes mellitus. Hypertension. Arthritis. Hyperlipidemia. Gout. She denies history of [place], stroke, lung disease, or renal disease. Her surgeries include recent placement of a port for chemotherapy. Distant history of a cholecystectomy. Back surgery. Exploratory laparotomy for perforated uterus from an IUD. Left knee replacement, left hip replacement, and bilateral cataracts. SOCIAL HISTORY: She is a . 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 Nonsmoker. No significant alcohol. FAMILY HISTORY: Sister had colon cancer in her 60s. REVIEW OF SYSTEMS: CONSTITUTIONAL: She has been feeling weak and anorectic. SKIN: No rash. No pruritus. CARDIAC: No chest pain. PULMONARY: No coughing. No hemoptysis. GI: As above. URINARY: No dysuria. No hematuria. PHYSICAL EXAMINATION: GENERAL: The patient is a pleasant, alert, comfortable-appearing female. She is pale. SKIN: Warm and dry. Nonjaundiced. CARDIAC: Normal S1, S2. ABDOMEN: Soft. Normal bowel sounds. Nondistended and nontender. There is no palpable mass, rebound, or guarding. LABORATORY DATA: As above. White count today 0.6, hemoglobin 6.5 compared to 8.8 yesterday, MCV 100, platelets 46,000. PT 15.5 with INR 1.3. Sodium 140, potassium 2.9, BUN 8, creatinine 0.7, calcium 6.4, total bilirubin 1.0, AST 15, ALT 18, alkaline phosphatase 39, albumin 2.0, lipase yesterday was 19. Her lipase in October was 35, and the maximal lipase in September was 113. Her most recent CAT scan done yesterday describes a normal-appearing biliary tree and liver. The pancreas appeared atrophic with very subtle stranding near the pancreatic head consistent with possible, but not definitive early pancreatitis. There was no splenomegaly. The GI tract describes some possible gastritis in the area of the antrum, this was not definitive. IMPRESSION: At the present time, I suspect the great majority of her GI complaints are in relation to her underlying illness and ongoing chemotherapy. I do not think she has any active nor significant component of pancreatitis. She may also have an underlying diabetic gastroparesis that was not symptomatic previous, but now has been exacerbated by her ongoing illness. She does not appear to show any signs of colitis based on her exam, history, nor CAT scan. While she certainly may have had pancreatitis in July when she had her COVID infection, I do not think she has any active symptoms or signs of pancreatitis at the present time contributing to the ongoing illness. Therefore, I would hold off on any further workup of that, and specifically hold off on the endoscopic ultrasound at the present time since I think the yield on that would be low. At this point, I would continue to maximize supportive and symptomatic care with oral PPI twice a day, antiemetics, diet as tolerated and follow up laboratories. I think Reglan is a reasonable choice as well as long as she tolerates it. If she has continued and/or worsening of the upper GI symptoms, I would then switch her to intravenous PPI and Reglan therapy. I do not think upper endoscopy is presently required. I will continue to follow her labs as well. This has all been discussed in detail with the patient and her daughter. MD SHAHZAD Dumont/DC / [id number]
[2020-11-26] MEDS: Lactated Ringers 1,000 ML 100 ML IVCONT (05:31)
[2020-11-26] MEDS: Omeprazole 20 MG CAPSULE.DR PO (05:31)
[2020-11-26 07:51] LABS: Glucose, Whole Blood 138 mg/dL (60-115)
[2020-11-26 07:58] VITALS: BP 92/55; PULSE 68; RESP 18; TEMP 36.6; O2SAT 95
[2020-11-26] MEDS: Atovaquone 750 MG/5 ML ORAL.SUSP 1500 MG PO (08:08)
[2020-11-26] MEDS: Metoclopramide HCl 5 MG TABLET PO ×2 (08:09→12:37)
[2020-11-26] MEDS: DULoxetine HCl 20 MG CAPSULE.DR PO (08:09)
[2020-11-26] MEDS: Magnesium Oxide 400 MG TABLET PO (08:09)
[2020-11-26] MEDS: Acyclovir 200 MG CAPSULE 400 MG PO (08:09)
[2020-11-26 08:54] LABS: Hematocrit 23.5 % (37-47); Mean Corpuscular Hemoglobin 32.8 pg (27.0-33.0); Mean Corpuscular Volume 96.3 fL (80-98); Mean Platelet Volume 12.4 fL (9.4-12.3); Red Blood Count 2.44 X10*6/uL (4.20-5.50); Red Cell Distribution Width 20.4 % (11.0-16.0)
[2020-11-26 09:01] LABS: Platelet Count 51 X10*3/uL (160-400); WBC ABN SCTR FOR CBC 1
[2020-11-26 09:13] LABS: Band Neutrophils Percent 7 % (3-5); Lymphocytes Percent Manual 24 % (20-40); Monocytes Percent Manual 8 % (2-11); Neutrophils Percent Manual 61 % (45-73); Platelet Estimate DECREASED (NORMAL)
[2020-11-26 09:14] LABS: Large Platelet PRESENT; Platelet Morphology Comment NOTED
[2020-11-26 09:15] LABS: Acanthocytes 1+ (0-2) /OIF; Ovalocytes 1+ (5-14) /OIF; RBC Morphology NOTED; Tear Drop Cells 1+ (0-2) /OIF
[2020-11-26 09:16] LABS: Burr Cells 1+ (0-2) /OIF; Hypochromasia 1+ (5-14) /OIF; Macrocytosis 1+ (5-14) /OIF
[2020-11-26 09:17] LABS: Lymphocytes Absolute Manual 0.3 X10*3/uL (0.6-4.8); Monocytes Absolute Manual 0.1 X10*3/uL (0.0-1.2); Neutrophils Absolute Manual 0.7 X10*3/uL (2.2-7.9); White Blood Count 1.1 X10*3/uL (4.8-10.8)
[2020-11-26 09:19] LABS: Alanine Aminotransferase 19 U/L (0-31); Alkaline Phosphatase 44 U/L (39-117); Anion Gap 8 (12-20); Aspartate Amino Transferase 15 U/L (5-31); Bilirubin Direct 0.4 mg/dL (0.0-0.5); Bilirubin Total 0.7 mg/dL (0.0-1.0); Blood Urea Nitrogen 10 mg/dL (9-16); Carbon Dioxide 26 mmol/L (22-29); Chloride 108 mmol/L (96-108); Estimated Glomerular Filt Rate > 60; Glucose Fasting 148 mg/dL (60-99); Magnesium 1.5 mg/dL (1.6-2.6); Potassium 3.1 mmol/L (3.3-5.1); Sodium 139 mmol/L (135-145); Total Protein 5.1 g/dL (6.5-8.0)
[2020-11-26 09:29] LABS: Calcium 6.8 mg/dL (8.4-10.2)
[2020-11-26] MEDS: Potassium Chloride ER 20 MEQ TAB.ER.PRT 40 MEQ PO (10:46)
[2020-11-26] MEDS: Magnesium Sulfate/H2O 2 GM/50 ML PIGGYBACK IV (10:47)
[2020-11-26 11:10] LABS: Glucose, Whole Blood 193 mg/dL (60-115)
--- NOTE | 2020-11-26 11:18 | P.DS_ITS ---
DS: Providers Provider Date of Service: 11/27/20 Date of admission: 11/24/20 22:19 Primary care physician: Iveth Cowart MD Consults: 11/24/20 22:26 Consult to Hematology / Oncology Routine Consulting Provider: Carissa Raman Reason for consultation: Multiple Myeloma 11/24/20 22:33 Consult to Gastroenterology Routine Consulting Provider: Campbell Mcghee Reason for consultation: Nausea/vomiting/poor intake DS: Diagnosis Discharge Diagnosis (1) Multiple myeloma: Status: Acute (2) Hypomagnesemia: Status: Acute (3) Acute hypokalemia: Status: Acute (4) Vomiting: Status: Acute (5) Acute dehydration: Status: Acute (6) Pancytopenia: Status: Acute DS: Medications Discharge Medications Home Medications: Home Medications Medication Instructions Recorded Confirmed aspirin 81 mg chewable tablet 81 mg PO DAILY 04/22/20 11/24/20 docusate sodium 100 mg capsule 100 mg PO BID PRN 04/22/20 11/24/20 insulin aspart U-100 100 unit/mL 2 - 12 unit SUBCUT TID 04/22/20 11/24/20 (3 mL) subcutaneous pen omeprazole 20 mg capsule,delayed 20 mg PO DAILY 04/22/20 11/24/20 release polyethylene glycol 3350 [Miralax] 17 g PO DAILY PRN 10/06/20 11/24/20 sennosides [senna] 8.6 mg PO BEDTIME PRN 10/09/20 11/24/20 furosemide 20 mg tablet 20 mg PO DAILY 10/29/20 11/24/20 Previous Rx's Medication Instructions Recorded acyclovir 400 mg PO DAILY #90 tab 10/26/20 ondansetron HCl [Zofran] 8 mg PO Q8H PRN #50 tab 10/26/20 atovaquone [Mepron] 1,500 mg PO DAILY #300 ml 10/29/20 metoclopramide HCl [Reglan] 5 mg PO TIDAC #30 tab 11/09/20 Revlimid 15 mg PO DAILY #21 cap 11/13/20 magnesium oxide 400 mg PO BIDPC #60 tab 11/26/20 DS: Summary Hospital Course Hospital Course: Patient was admitted for nausea and vomiting complicated by dehydration, hypokalemia, hypo magnesemia related to chemotherapy for multiple myeloma. Her electrolytes were replaced and she was given IV fluids, her Lasix has been held. Her dehydration improved and electrolyte abnormalities improved. Patient's symptoms resolved and she was tolerating solid diet. Patient was also noted to be pancytopenic due to her chemotherapy. Her hemoglobin was 6.5 and she received 1 unit of PRBC. Her hemoglobin improved appropriately to 8. Patient is now feeling much better will be discharged home. Time Spent with Patient Time attestation: Total time spent providing and/or coordinating discharge services: Discharge coordination time: Greater than 30 minutes Quality: Stroke Does the patient have a stroke diagnosis?: No Physical Exam Vital Signs: Vital Signs: Last Vital Signs Temp 97.9 F 11/26/20 07:58 Pulse 68 11/26/20 07:58 Resp 18 11/26/20 07:58 BP 92/55 L 11/26/20 07:58 Pulse Ox 95 11/26/20 07:58 Body Mass Index 37.3 General: AO X 3, no acute distress Resp: CTA bilateral CVS: S1,S2,RRR GI: soft, non tender, non distended Neuro: motor grossly intact Psych: appropriate affect DS: Data Data Completed and Pending Completed studies during hospitalization [Text1]: Procedures Extraction of Iliac Bone Marrow, Percutaneous Approach, Diagnostic (10/09/20) Labs on day of discharge: Laboratory Results - last 24 hr 11/25/20 11/25/20 11/25/20 05:47 10:57 11:56 WBC RBC Hgb Hct MCV MCH MCHC RDW Plt Count MPV Immature Gran % (Auto) Neut % (Auto) Lymph % (Auto) Mcmullen % (Auto) Eos % (Auto) Baso % (Auto) Lymph # (Auto) Mcmullen # (Auto) Eos # (Auto) Baso # (Auto) Abs Immat Gran (auto) Absolute Neuts (auto) Absolute Nucleated RBC Nucleated RBC % (auto) Neutrophils % (Manual) Band Neutrophils % Lymphocytes % (Manual) Monocytes % (Manual) Abs Neuts (Manual) Lymphocytes # (Manual) Monocytes # (Manual) Platelet Estimate Large Platelets Plt Morphology Comment RBC Morphology Hypochromasia Macrocytosis Tear Drop Cells Ovalocytes Latosha Cells Acanthocytes (Spur) Sodium Potassium Chloride Carbon Dioxide Anion Gap BUN Creatinine Estim Creat Clear Calc Estimated GFR POC Glucose 166 H Fasting Glucose Calcium Magnesium Total Bilirubin 1.0 Direct Bilirubin 0.6 H AST 15 ALT 18 Alkaline Phosphatase 39 D Total Protein 5.1 L Albumin 2.0 L Blood Type O Positive Antibody Screen NEGATIVE Crossmatch See Detail 11/25/20 11/25/20 11/26/20 16:05 19:59 07:40 WBC RBC Hgb Hct MCV MCH MCHC RDW Plt Count MPV Immature Gran % (Auto) Neut % (Auto) Lymph % (Auto) Mcmullen % (Auto) Eos % (Auto) Baso % (Auto) Lymph # (Auto) Mcmullen # (Auto) Eos # (Auto) Baso # (Auto) Abs Immat Gran (auto) Absolute Neuts (auto) Absolute Nucleated RBC Nucleated RBC % (auto) Neutrophils % (Manual) Band Neutrophils % Lymphocytes % (Manual) Monocytes % (Manual) Abs Neuts (Manual) Lymphocytes # (Manual) Monocytes # (Manual) Platelet Estimate Large Platelets Plt Morphology Comment RBC Morphology Hypochromasia Macrocytosis Tear Drop Cells Ovalocytes Latosha Cells Acanthocytes (Spur) Sodium Potassium Chloride Carbon Dioxide Anion Gap BUN Creatinine Estim Creat Clear Calc Estimated GFR POC Glucose 182 H 241 H 138 H Fasting Glucose Calcium Magnesium Total Bilirubin Direct Bilirubin AST ALT Alkaline Phosphatase Total Protein Albumin Blood Type Antibody Screen Crossmatch 11/26/20 11/26/20 11/26/20 07:55 07:55 10:56 WBC 1.1 L RBC 2.44 L D Hgb 8.0 L D Hct 23.5 L MCV 96.3 MCH 32.8 MCHC 34.0 RDW 20.4 H Plt Count 51 L MPV 12.4 H Immature Gran % (Auto) Cancelled Neut % (Auto) Cancelled Lymph % (Auto) Cancelled Mcmullen % (Auto) Cancelled Eos % (Auto) Cancelled Baso % (Auto) Cancelled Lymph # (Auto) Cancelled Mcmullen # (Auto) Cancelled Eos # (Auto) Cancelled Baso # (Auto) Cancelled Abs Immat Gran (auto) Cancelled Absolute Neuts (auto) Cancelled Absolute Nucleated RBC 0.000 Nucleated RBC % (auto) 0.0 Neutrophils % (Manual) 61 Band Neutrophils % 7 H Lymphocytes % (Manual) 24 Monocytes % (Manual) 8 Abs Neuts (Manual) 0.7 L Lymphocytes # (Manual) 0.3 L Monocytes # (Manual) 0.1 Platelet Estimate DECREASED Large Platelets PRESENT Plt Morphology Comment NOTED RBC Morphology NOTED Hypochromasia 1+ (5-14) Macrocytosis 1+ (5-14) Tear Drop Cells 1+ (0-2) Ovalocytes 1+ (5-14) [place] Cells 1+ (0-2) Acanthocytes (Spur) 1+ (0-2) Sodium 139 Potassium 3.1 L Chloride 108 Carbon Dioxide 26 Anion Gap 8 L BUN 10 Creatinine 0.67 Estim Creat Clear Calc 87.0 Estimated GFR > 60 POC Glucose 193 H Fasting Glucose 148 H Calcium 6.8 L D Magnesium 1.5 L Total Bilirubin 0.7 Direct Bilirubin 0.4 AST 15 ALT 19 Alkaline Phosphatase 44 Total Protein 5.1 L Albumin 2.0 L Blood Type Antibody Screen Crossmatch Preliminary micro results at discharge 11/24/20 20:55 Blood Culture - Preliminary Blood - Venous No growth after 24 hours. 11/24/20 20:55 Blood Culture - Preliminary Blood - Venous No growth after 24 hours. Discharge Plan Discharge Patient Disposition: Home Health Service Discharge Diagnosis: anemia, hypokalemia, hypomagnesemia Referrals: Christina DOWNING [Outside] - 1 Week Iveth Cowart MD [Primary Care Provider] - 1 Week Discharge Medications: New magnesium oxide 400 mg (241.3 mg magnesium) Tablet 400 mg PO BIDPC Qty: 60 RF: 0 Continued ondansetron HCl [Zofran] 4 mg Tablet 8 mg PO Q8H PRN (Reason: Nausea And Vomiting) Qty: 50 RF: 4 acyclovir 400 mg Tablet 400 mg PO DAILY Qty: 90 RF: 4 polyethylene glycol 3350 [Miralax] 17 gram/dose Powder 17 g PO DAILY PRN (Reason: Constipation) RF: 0 Revlimid 15 mg Capsule 15 mg PO DAILY Qty: 21 RF: 11 sennosides [senna] 8.6 mg Tablet 8.6 mg PO BEDTIME PRN (Reason: Constipation) RF: 0 atovaquone [Mepron] 750 mg/5 mL Suspension 1,500 mg PO DAILY Qty: 300 RF: 6 metoclopramide HCl [Reglan] 5 mg tablet 5 mg PO TIDAC Qty: 30 RF: 0 aspirin 81 mg tablet,chewable 81 mg PO DAILY RF: 0 docusate sodium 100 mg capsule 100 mg PO BID PRN (Reason: Constipation) RF: 0 insulin aspart U-100 100 unit/mL (3 mL) insulin pen 2 - 12 unit subcut TID RF: 0 omeprazole 20 mg capsule,delayed release(DR/EC) 20 mg PO DAILY RF: 0 Held furosemide 20 mg tablet 20 mg PO DAILY RF: 0 Hold Instructions: Resume on 12/02/20. Discharge Orders: Discharge Order (Routine); Ordered 11/26/20 Ordered By: Ernesto Morales Diet: diabetic diet Activity on Discharge: As tolerated Stand Alone Forms: Patient Portal Discharge page Care Plan Goals: recovvery Health Concerns: MM Plan of Treatment: hold lasix for the week, follow up with hematology, magneseium supplement Assessment: see above Discharge Date/Time: 11/26/20 16:29
[2020-11-26 11:21] VITALS: BP 100/54; PULSE 81; RESP 20; TEMP 36.7; O2SAT 94
--- NOTE | 2020-11-26 12:23 | MHC.CM.PN ---
IMM 11/26/20 Female DX N/V LYTES She is discharged to home today. [facility] will resume services. Patients dtr providing transportation.
[2020-11-26] MEDS: Insulin Lispro 100 UNIT/ML 3 ML VIAL SUBCUT (12:36)
--- NOTE | 2020-11-26 15:04 | MHC.INPTTRAN ---
Has been john meals no further nausea/vomitting today. No further diarrhea today. OOB with assist, remains weak. Labs improved. color pale, +3 matthew LE edema, improved from admission
[2020-11-26 15:41] VITALS: BP 97/49; PULSE 86; RESP 19
== END 2020-11-26 16:29 | disposition home health service (06) | DRG 249 ==
LOC: HO.ED 20:05 → HO.EDOVER 23:02 → HO.IMC 23:32
PROVIDERS: Nurse Practitioner Family; Admitting Provider Hospitalist; Emergency Provider Emergency Medicine; PCP Internal Medicine; Visit Provider Internal Medicine
DX: R11.2 Nausea with vomiting, unspecified (principal); K85.90 Acute pancreatitis without necrosis or infection, unspecified; D61.810 Antineoplastic chemotherapy induced pancytopenia; C90.00 Multiple myeloma not having achieved remission; I95.9 Hypotension, unspecified; E86.0 Dehydration; E78.5 Hyperlipidemia, unspecified; E87.6 Hypokalemia; T45.1X5A Adverse effect of antineoplastic and immunosuppressive drugs, initial encounter; Y92.9 Unspecified place or not applicable; Z20.822 Contact with and (suspected) exposure to COVID-19; Z79.4 Long term (current) use of insulin; Z79.82 Long term (current) use of aspirin; Z86.16 Personal history of COVID-19; Z96.642 Presence of left artificial hip joint; Z88.2 Allergy status to sulfonamides; Z88.5 Allergy status to narcotic agent; Z79.899 Other long term (current) drug therapy
CPT/HCPCS: 36415; 71046; 74177; 80048; 80076; 81001; 81003; 82947; 83605; 83690; 83735; 84100; 85007; 85025; 85027; 85610; 86850; 86900; 86901; 86923; 87040; 87086; 87635; 93005; 96365; 96366; 96368; 96375; 99285; J0696; J1100; J1447; J1642; J1650; J2405; J3475; P9016; P9047; Q9967

== ENCOUNTER 2021-01-09 12:39 | Inpatient (IN) | payer OTHER, SELFPAY ==
--- NOTE | ~2021-01-09 | CT_ITS ---
EXAMINATION: CT ABDOMEN AND PELVIS WITH CONTRAST CLINICAL INFORMATION: Abdominal pain, nausea and vomiting. History of pancreatitis. COMPARISON: Most recent prior CT of the abdomen and pelvis done on 11/24/2020. TECHNIQUE: Multidetector volumetric images were obtained from the superior aspect of the liver through the pubic symphysis following administration 85 mL of Omnipaque 350 intravenous contrast. Sagittal and coronal reformatted images were obtained on the technologist's workstation. Oral contrast: No This CT examination was performed using dose optimization techniques as appropriate, variously including the following: *Automated exposure control *Adjustment of mA and/or kV according to patient size (this includes techniques or standardized protocols for targeted exams where dose is matched to indication/reason for exam; i.e. extremities or head) *Use of iterative reconstruction technique DLP: 1022 mGy-cm FINDINGS: LUNG BASES: Trace amount of bilateral pleural effusions appear improved since prior study. LIVER, GALLBLADDER, AND BILIARY TREE: Diffuse hepatic hypodensity, consistent with steatosis without any superimposed focal liver lesion. The portal, hepatic veins are patent. Nonvisualized gallbladder, presumably surgically absent. No evidence of any biliary ductal dilatation. PANCREAS: Hypodensity within the distal part of the body, tail of the pancreas and surrounding subtle inflammatory stranding, consistent with mild pancreatitis related changes are present. No definite peripancreatic fluid collection, ductal dilatation or calcification is seen. No significant change. SPLEEN: Unremarkable. ADRENAL GLANDS: Unremarkable. KIDNEYS AND URETERS: The kidneys are normal in size, shape, and attenuation. No hydronephrosis, hydroureter seen. No perinephric stranding. Solitary 2 to 3 mm radiopaque density is seen at the inferior calyx of the left kidney (image #[id number] series 4), consistent with a nonobstructing left renal calculus. BLADDER: Empty, accordingly not evaluated. GASTROINTESTINAL TRACT: Colonic diverticulosis related changes are noted within the large bowel upper and mural thickening is present within the hepatic flexure as well as the ascending colon including the cecum, may represent physiologic suboptimal distention versus focal colitis. The appendix is visualized at right mid abdomen and is unremarkable. The small bowel loops are decompressed. The pylorus of the stomach shows persistent mural thickening, may represent gastritis versus neoplasm. Direct visualization is recommended. ABDOMINAL WALL: No significant hernia is appreciated. LYMPH NODES: Normal. VASCULAR: Diffuse atherosclerotic disease of the aorta without evidence of aneurysm. PELVIC VISCERA: No pelvic mass present. No evidence of any free fluid and/or free air. OSSEOUS STRUCTURES: Apparent fusion is noted at L5-S1 with moderate to severe degenerative spondylosis at L4-L5. Postsurgical changes of total left hip arthroplasty is noted. The visualized hardware is intact. CT/CT abdomen pelvis w con IMPRESSION: 1. Persistent subtle hypodensity involving the distal part of the body and tail of the pancreas consistent with mild interstitial pancreatitis. Possibility of cystic lesion in this region is not excluded. Follow-up nonemergent MRI per pancreatic mass protocol with and without contrast may be considered for further clarification. 2. Nondilated biliary tree and nonvisualized gallbladder, presumably surgically absent. 3. Diffuse hepatic steatosis. 4. Persistent nonspecific mural thickening involving the pylorus of the stomach. Direct visualization/endoscopy is recommended for further clarification. 5. Colonic diverticulosis without any CT features of superimposed acute diverticulitis. 7. Nonspecific apparent mural thickening involving the hepatic flexure and the right-sided colon including the cecum, may represent physiologic changes secondary to suboptimal distention versus mild early nonspecific colitis. 8. Solitary 2 to 3 mm radiopaque density within the inferior calyx of the left kidney, consistent with nonobstructing left renal calculus. 6. Apparent fusion at L5-S1 and moderate to severe degenerative spondylosis at L4-L5 and postsurgical changes of left hip hemiarthroplasty with intact visualized hardware.
--- NOTE | ~2021-01-09 | XR_ITS ---
EXAMINATION: XR CHEST CLINICAL INFORMATION: 75-year-old female patient with fever. Per chart: History pancreatitis. COMPARISON: Last chest x-ray done 11/24/2020. TECHNIQUE: AP portable semierect view of the chest was obtained. The time of examination was 2:20 PM. FINDINGS: There is no evidence of acute pulmonary parenchymal or pleural disease. Heart is normal in size. A CT compatible central venous port catheter is directed from the right internal jugular vein and its tip is located in the distal SVC. XR/XR chest 1V IMPRESSION: No acute pulmonary disease.
--- NOTE | 2021-01-09 12:49 | ECG_ITS ---
Test Reason : WEAKNESS Blood Pressure : / mmHG Vent. Rate : 115 BPM Atrial Rate : 115 BPM P-R Int : 160 ms QRS Dur : 064 ms QT Int : 378 ms P-R-T Axes : 000 -28 029 degrees QTc Int : 522 ms Sinus tachycardia with Premature supraventricular complexes Low voltage QRS Cannot rule out Anterior infarct , age undetermined Prolonged QT Abnormal ECG When compared with ECG of 24-NOV-2020 16:29, Premature supraventricular complexes are now Present Vent. rate has increased BY 42 BPM Nonspecific T wave abnormality, improved in Inferior leads Nonspecific T wave abnormality, improved in Anterolateral leads Referred By: Holli Ferris Electronically Signed By:Kota Ramos
[2021-01-09 12:51] VITALS: BP 110/54; PULSE 112; RESP 16; TEMP 37.8; O2SAT 97; BMI 38.7
--- NOTE | 2021-01-09 13:09 | ED.NAVMDI ---
HPI - Nausea/Vomiting/Diarrhea General Chief complaint: Nausea/Vomiting/Diarrhea Stated complaint: fever/vomiting Time Seen by Provider: 01/09/21 14:25 Source: patient and family Mode of arrival: wheelchair Limitations: no limitations History of Present Illness HPI Narrative: 75-year-old female with a past medical history of diabetes, hypertension, hypercalcemia, hyperlipidemia, RADHA, pancytopenia, hyperthyroid, multiple myeloma presents with complaint of nausea, vomiting and abdominal pain which has been intermittent for the past 2 days. she has had chronic abdominal pain with nausea and vomiting for several months, and has been diagnosed pancreatitis past. she does report subjective fevers, chills, diffuse abdominal pain, and bilateral lower extremity edema. She denies chills. Per surgery, palpitations, shortness of breath, shortness breath on exertion, abdominal distention, constipation, melena, hematochezia, Or wounds. MD elicited complaint: nausea, vomiting, diarrhea and abdominal pain Pertinent past history: pacreatitis Onset (ago): day(s) (2) Description of vomiting: watery and bilious Description of diarrhea: watery and loose Associated nausea: Yes Associated abdominal pain: Yes Location of pain: epigastric Pain consistency: constant Severity: moderate Pain scale (0-10): 6 Quality: stabbing and aching Exacerbating factors: eating, vomiting and movement Relieving factors: none Associated symptoms: fever/chills, loss of appetite, nausea/vomiting and weakness Related Data Home Medications Medication Instructions Recorded Confirmed aspirin 81 mg chewable tablet 81 mg PO DAILY 04/22/20 01/09/21 docusate sodium 100 mg capsule 100 mg PO BID PRN 04/22/20 01/09/21 insulin aspart U-100 100 unit/mL 2 - 12 unit SUBCUT TID 04/22/20 01/09/21 (3 mL) subcutaneous pen omeprazole 20 mg capsule,delayed 20 mg PO BID 04/22/20 01/09/21 release polyethylene glycol 3350 [Miralax] 17 g PO DAILY PRN 10/06/20 01/09/21 sennosides [senna] 8.6 mg PO BEDTIME PRN 10/09/20 01/09/21 spironolactone 50 mg PO DAILY 01/05/21 01/09/21 Previous Rx's Medication Instructions Recorded acyclovir 400 mg PO DAILY #90 tab 10/26/20 ondansetron HCl [Zofran] 8 mg PO Q8H PRN #50 tab 10/26/20 atovaquone [Mepron] 1,500 mg PO DAILY #300 ml 10/29/20 metoclopramide HCl [Reglan] 5 mg PO TIDAC #30 tab 11/09/20 magnesium oxide 400 mg PO BIDPC #60 tab 11/26/20 potassium chloride 20 meq PO BID #60 tab 01/05/21 Revlimid 15 mg PO DAILY #21 cap 01/08/21 Allergies Allergy/AdvReac Type Severity Reaction Status Date / Time codeine [CODEINE] Allergy Intermediate NAUSEA & Verified 10/25/20 10:17 VOMITING, vomiting lisinopril [LISINOPRIL] Allergy Intermediate COUGH, Verified 10/25/20 10:17 Coughing sulfamethoxazole Allergy Intermediate RASH Verified 10/25/20 10:17 [From BACTRIM] Review of Systems Review of Systems: Constitutional: No Weight loss, positive Fever, positive Chills, No Night Sweats, No Fatigue, No Malaise ENT/Mouth: No Hearing loss, No Ear Pain, No Nasal Congestion, No Sinus Pain, No Hoarseness, No sore throat, No Rhinorrhea, No Swallowing Difficulty Eyes: No Eye Pain, No Swelling, No Redness, No Foreign Body, No Discharge, No Vision Changes Cardiovascular: No Chest Pain, No SOB, No Dyspnea on Exertion, No Orthopnea, No Edema, No Palpitations Respiratory: No Cough, No Sputum, No Wheezing, No Smoke Exposure, No Dyspnea Gastrointestinal: Positive Nausea, Positive Vomiting, positive Diarrhea, positive abdominal Pain, No Hematochezia, No Melena Genitourinary: no irregular bleeding, No Dysuria, No Urinary Frequency, No Hematuria, No Urinary Incontinence, No Urgency, No Flank Pain, No Urinary Flow Changes, No Hesitancy Musculoskeletal: positive bilateral lower extremity edema, No joint pain, No Myalgias, No Joint Swelling Skin: No Skin Lesions, No rash Neuro: No Weakness, No Numbness, No Paresthesias, No Loss of Consciousness, No Dizziness, No Headache Psych: No Anxiety/Panic, No Depression, No SI/HI/AH/VH, No Social Issues Heme/Lymph: No Bruising, No Bleeding,No Lymphadenopathy Endocrine: No Polyuria, No Polydipsia, No Temperature Intolerance Yes all other systems are reviewed and are negative Gastrointestinal: Gastrointestinal: Reports nausea PMFSH Past Medical History Attestation statement: The following information was validated with the patient. Source: old records reviewed Medical History Diabetes mellitus type 2, controlled, without complications Essential hypertension Hypercalcemia Hyperlipidemia, unspecified Hypoglycemia unawareness associated with type 2 diabetes mellitus Obstructive sleep apnea Pancytopenia Subclinical hyperthyroidism Surgical History History of knee replacement History of left hip replacement Family History Family History Father No problems noted. Mother Heart disease Brother Atrial fibrillation Brother Atrial fibrillation Brother Atrial fibrillation Social History Social History Household Members: Children Household Members Other:: 3 Housing: House Do you presently have visiting nurse or other home services: Yes Alcohol intake: never Advance Directives: Yes Advance Directives on File: Yes Advance Directives Date on File: 10/09/20 service: No Current occupational status: retired Physical Exam Vital Signs: Vital Signs: Last Vital Signs Temp 101.8 F H 01/09/21 13:38 Pulse 104 H 01/09/21 13:38 Resp 16 01/09/21 13:38 BP 114/47 L 01/09/21 13:38 Pulse Ox 96 01/09/21 13:38 Body Mass Index 38.7 Appearance: Alert. Oriented X3. moderate distress. Eyes: Pupils equal, round and reactive to light. EOMI ENT: Pharynx normal. dry mucous membranes Neck: Normal inspection. Neck supple. CVS: tachycardic heart rate and rhythm. Pulses normal. Respiratory: No respiratory distress. Breath sounds normal. Abdomen: Soft and tender to epigastric, and left upper quadrants. Skin: Skin warm and dry. Normal skin color. Normal skin turgor. Extremities: Plus four pitting edema to bilateral lower extremities. Neuro: No motor deficit. No sensory deficit. Course Course Course Narrative: 1:10 p.m. 0 patient has had subjective fevers and chills, patient is tachycardic at 112., temperature 100.1? oral, and past medical history of myeloma, patient does fit sepsis criteria. However, patient has +4 pitting edema to bilateral lower extremities 2:06 p.m. patient is neutropenic, neutropenic precautions initiated. Order for 2 g of cefepime, lactic acid is 3.0. fluid resuscitation will be done gently, will give 1 L for fear of volume overload. 2:26 p.m. discussion with hospitalist, plan is to admit for neutropenic fever.Potassium repleted with 40 mEq p.o., magnesium repleted with 2 g IV. MDM - Nausea/Vomiting/Diarrhea MDM Narrative Medical decision making narrative: sepsis, UTI, pneumonia, neutropenia Differential Diagnosis Differential diagnosis: Likely gastroenteritis, drug-induced nausea and vomiting and dehydration Medical Records Attestation: I reviewed the patient's medical records. Lab Data Attestation: I reviewed the patient's lab results. Result diagrams: 01/09/21 13:27 01/09/21 13:27 Labs: Lab Results 01/09/21 01/09/21 01/09/21 Range/Units 13:27 13:27 13:27 WBC 0.6 L* (4.8-10.8) X10*3/uL RBC 2.79 L (4.20-5.50) X10*6/uL Hgb 9.5 L (12.0-16.0) g/dl Hct 29.5 L (37-47) % MCV 105.7 H (80-98) fL MCH 34.1 H (27.0-33.0) pg MCHC 32.2 (31.0-35.0) g/dl RDW 18.0 H (11.0-16.0) % Plt Count 50 L D (160-400) X10*3/uL MPV 12.7 H (9.4-12.3) fL Immature Gran % (Auto) Cancelled Neut % (Auto) Cancelled Lymph % (Auto) Cancelled [place] % (Auto) Cancelled Eos % (Auto) Cancelled Baso % (Auto) Cancelled Lymph # (Auto) Cancelled [place] # (Auto) Cancelled Eos # (Auto) Cancelled Baso # (Auto) Cancelled Abs Immat Gran (auto) Cancelled Absolute Neuts (auto) Cancelled Absolute Nucleated RBC 0.000 (0.0-0.012) X10*3/uL Nucleated RBC % (auto) 0.0 (0.0-0.2) /100WBC Neutrophils % (Manual) 64 (45-73) % Band Neutrophils % 12 H (3-5) % Lymphocytes % (Manual) 16 L (20-40) % Monocytes % (Manual) 8 (2-11) % Abs Neuts (Manual) 0.5 L (2.2-7.9) X10*3/uL Lymphocytes # (Manual) 0.1 L (0.6-4.8) X10*3/uL Nucleated RBCs 1 H (0-0) /100WBC Platelet Estimate DECREASED (NORMAL) Plt Morphology Comment NORMAL RBC Morphology NOTED Macrocytosis 2+ (15-30) /OIF Ovalocytes 1+ (5-14) /OIF Acanthocytes (Spur) 2+ (3-5) /OIF Schistocytes 1+ (0-2) /OIF PT 15.3 H (10.8-13.0) SEC INR 1.3 H (0.9-1.1) APTT 25.9 (24.1-38.0) SEC Sodium 138 (135-145) mmol/L Potassium 3.2 L (3.3-5.1) mmol/L Chloride 111 H (96-108) mmol/L Carbon Dioxide 19 L (22-29) mmol/L Anion Gap 11 L (12-20) BUN 13 (9-16) mg/dL Creatinine 0.73 (0.5-1.4) mg/dL Estim Creat Clear Calc 81.5 Estimated GFR > 60 Random Glucose 182 H (60-115) mg/dL Lactic Acid (0.5-2.0) mmol/L Calcium 6.8 L (8.4-10.2) mg/dL Magnesium (1.6-2.6) mg/dL Total Bilirubin 1.2 H (0.0-1.0) mg/dL Direct Bilirubin 0.7 H (0.0-0.5) mg/dL AST 27 D (5-31) U/L ALT 25 (0-31) U/L Alkaline Phosphatase 56 (39-117) U/L Troponin I High Sens (<3.5-17.0) ng/L B-Natriuretic Peptide (<100) pg/mL Total Protein 5.9 L (6.5-8.0) g/dL Albumin 1.8 L (3.5-5.0) g/dL Lipase 10 (8-78) U/L Urine Color Urine Appearance Urine pH (5.0-8.0) Ur Specific [place] (1.005-1.025) Urine Protein (NEG-TRACE) MG/DL Urine Glucose (UA) (NEG) MG/DL Urine Ketones (NEG) MG/DL Urine Blood (NEG) Urine Nitrite (NEG) Ur Leukocyte Esterase (NEG) Urine RBC (0) /HPF Urine WBC (0-4) /HPF Ur Squamous Epith Cells /LPF Urine Bacteria /LPF Urine Mucus /LPF Coronavirus (PCR) (Negative) Influenza Type A (PCR) (Negative) Influenza Type B (PCR) (Negative) RSV RNA Qual (PCR) (Negative) 01/09/21 01/09/21 01/09/21 Range/Units 13:27 13:27 13:27 WBC (4.8-10.8) X10*3/uL RBC (4.20-5.50) X10*6/uL Hgb (12.0-16.0) g/dl Hct (37-47) % MCV (80-98) fL MCH (27.0-33.0) pg MCHC (31.0-35.0) g/dl RDW (11.0-16.0) % Plt Count (160-400) X10*3/uL MPV (9.4-12.3) fL Immature Gran % (Auto) Neut % (Auto) Lymph % (Auto) [place] % (Auto) Eos % (Auto) Baso % (Auto) Lymph # (Auto) [place] # (Auto) Eos # (Auto) Baso # (Auto) Abs Immat Gran (auto) Absolute Neuts (auto) Absolute Nucleated RBC (0.0-0.012) X10*3/uL Nucleated RBC % (auto) (0.0-0.2) /100WBC Neutrophils % (Manual) (45-73) % Band Neutrophils % (3-5) % Lymphocytes % (Manual) (20-40) % Monocytes % (Manual) (2-11) % Abs Neuts (Manual) (2.2-7.9) X10*3/uL Lymphocytes # (Manual) (0.6-4.8) X10*3/uL Nucleated RBCs (0-0) /100WBC Platelet Estimate (NORMAL) Plt Morphology Comment RBC Morphology Macrocytosis /OIF Ovalocytes /OIF Acanthocytes (Spur) /OIF Schistocytes /OIF PT (10.8-13.0) SEC INR (0.9-1.1) APTT (24.1-38.0) SEC Sodium (135-145) mmol/L Potassium (3.3-5.1) mmol/L Chloride (96-108) mmol/L Carbon Dioxide (22-29) mmol/L Anion Gap (12-20) BUN (9-16) mg/dL Creatinine (0.5-1.4) mg/dL Estim Creat Clear Calc Estimated GFR Random Glucose (60-115) mg/dL Lactic Acid 3.0 H* (0.5-2.0) mmol/L Calcium (8.4-10.2) mg/dL Magnesium 1.5 L (1.6-2.6) mg/dL Total Bilirubin (0.0-1.0) mg/dL Direct Bilirubin (0.0-0.5) mg/dL AST (5-31) U/L ALT (0-31) U/L Alkaline Phosphatase (39-117) U/L Troponin I High Sens 5.4 (<3.5-17.0) ng/L B-Natriuretic Peptide (<100) pg/mL Total Protein (6.5-8.0) g/dL Albumin (3.5-5.0) g/dL Lipase (8-78) U/L Urine Color Urine Appearance Urine pH (5.0-8.0) Ur Specific [place] (1.005-1.025) Urine Protein (NEG-TRACE) MG/DL Urine Glucose (UA) (NEG) MG/DL Urine Ketones (NEG) MG/DL Urine Blood (NEG) Urine Nitrite (NEG) Ur Leukocyte Esterase (NEG) Urine RBC (0) /HPF Urine WBC (0-4) /HPF Ur Squamous Epith Cells /LPF Urine Bacteria /LPF Urine Mucus /LPF Coronavirus (PCR) (Negative) Influenza Type A (PCR) (Negative) Influenza Type B (PCR) (Negative) RSV RNA Qual (PCR) (Negative) 01/09/21 01/09/21 01/09/21 Range/Units 13:27 14:08 14:11 WBC (4.8-10.8) X10*3/uL RBC (4.20-5.50) X10*6/uL Hgb (12.0-16.0) g/dl Hct (37-47) % MCV (80-98) fL MCH (27.0-33.0) pg MCHC (31.0-35.0) g/dl RDW (11.0-16.0) % Plt Count (160-400) X10*3/uL MPV (9.4-12.3) fL Immature Gran % (Auto) Neut % (Auto) Lymph % (Auto) [place] % (Auto) Eos % (Auto) Baso % (Auto) Lymph # (Auto) [place] # (Auto) Eos # (Auto) Baso # (Auto) Abs Immat Gran (auto) Absolute Neuts (auto) Absolute Nucleated RBC (0.0-0.012) X10*3/uL Nucleated RBC % (auto) (0.0-0.2) /100WBC Neutrophils % (Manual) (45-73) % Band Neutrophils % (3-5) % Lymphocytes % (Manual) (20-40) % Monocytes % (Manual) (2-11) % Abs Neuts (Manual) (2.2-7.9) X10*3/uL Lymphocytes # (Manual) (0.6-4.8) X10*3/uL Nucleated RBCs (0-0) /100WBC Platelet Estimate (NORMAL) Plt Morphology Comment RBC Morphology Macrocytosis /OIF Ovalocytes /OIF Acanthocytes (Spur) /OIF Schistocytes /OIF PT (10.8-13.0) SEC INR (0.9-1.1) APTT (24.1-38.0) SEC Sodium (135-145) mmol/L Potassium (3.3-5.1) mmol/L Chloride (96-108) mmol/L Carbon Dioxide (22-29) mmol/L Anion Gap (12-20) BUN (9-16) mg/dL Creatinine (0.5-1.4) mg/dL Estim Creat Clear Calc Estimated GFR Random Glucose (60-115) mg/dL Lactic Acid (0.5-2.0) mmol/L Calcium (8.4-10.2) mg/dL Magnesium (1.6-2.6) mg/dL Total Bilirubin (0.0-1.0) mg/dL Direct Bilirubin (0.0-0.5) mg/dL AST (5-31) U/L ALT (0-31) U/L Alkaline Phosphatase (39-117) U/L Troponin I High Sens (<3.5-17.0) ng/L B-Natriuretic Peptide 206 H (<100) pg/mL Total Protein (6.5-8.0) g/dL Albumin (3.5-5.0) g/dL Lipase (8-78) U/L Urine Color YELLOW Urine Appearance HAZY Urine pH 5.5 (5.0-8.0) Ur Specific [place] 1.025 (1.005-1.025) Urine Protein 1+ H (NEG-TRACE) MG/DL Urine Glucose (UA) NEG (NEG) MG/DL Urine Ketones NEG (NEG) MG/DL Urine Blood 3+ H (NEG) Urine Nitrite NEG (NEG) Ur Leukocyte Esterase NEG (NEG) Urine RBC 15-29 H (0) /HPF Urine WBC 0-2 (0-4) /HPF Ur Squamous Epith Cells 3+ /LPF Urine Bacteria NONE /LPF Urine Mucus 1+ /LPF Coronavirus (PCR) NEGATIVE (Negative) Influenza Type A (PCR) NEGATIVE (Negative) Influenza Type B (PCR) NEGATIVE (Negative) RSV RNA Qual (PCR) NEGATIVE (Negative) Imaging Data Chest x-ray: Attestation: I personally reviewed and interpreted this imaging study as follows: Radiologist's impression: EXAMINATION: XR CHEST CLINICAL INFORMATION: 75-year-old female patient with fever. Per chart: History pancreatitis. COMPARISON: Last chest x-ray done 11/24/2020. TECHNIQUE: AP portable semierect view of the chest was obtained. The time of examination was 2:20 PM. FINDINGS: There is no evidence of acute pulmonary parenchymal or pleural disease. Heart is normal in size. A CT compatible central venous port catheter is directed from the right internal jugular vein and its tip is located in the distal SVC. XR/XR chest 1V IMPRESSION: No acute pulmonary disease. CT abdomen pelvis: Attestation: I personally reviewed and interpreted this imaging study as follows: Radiologist's impression: FINDINGS: LUNG BASES: Trace amount of bilateral pleural effusions appear improved since prior study. LIVER, GALLBLADDER, AND BILIARY TREE: Diffuse hepatic hypodensity, consistent with steatosis without any superimposed focal liver lesion. The portal, hepatic veins are patent. Nonvisualized gallbladder, presumably surgically absent. No evidence of any biliary ductal dilatation. PANCREAS: Hypodensity within the distal part of the body, tail of the pancreas and surrounding subtle inflammatory stranding, consistent with mild pancreatitis related changes are present. No definite peripancreatic fluid collection, ductal dilatation or calcification is seen. No significant change. SPLEEN: Unremarkable. ADRENAL GLANDS: Unremarkable. KIDNEYS AND URETERS: The kidneys are normal in size, shape, and attenuation. No hydronephrosis, hydroureter seen. No perinephric stranding. Solitary 2 to 3 mm radiopaque density is seen at the inferior calyx of the left kidney (image #[id number] series 4), consistent with a nonobstructing left renal calculus. BLADDER: Empty, accordingly not evaluated. GASTROINTESTINAL TRACT: Colonic diverticulosis related changes are noted within the large bowel upper and mural thickening is present within the hepatic flexure as well as the ascending colon including the cecum, may represent physiologic suboptimal distention versus focal colitis. The appendix is visualized at right mid abdomen and is unremarkable. The small bowel loops are decompressed. The pylorus of the stomach shows persistent mural thickening, may represent gastritis versus neoplasm. Direct visualization is recommended. ABDOMINAL WALL: No significant hernia is appreciated. LYMPH NODES: Normal. VASCULAR: Diffuse atherosclerotic disease of the aorta without evidence of aneurysm. PELVIC VISCERA: No pelvic mass present. No evidence of any free fluid and/or free air. OSSEOUS STRUCTURES: Apparent fusion is noted at L5-S1 with moderate to severe degenerative spondylosis at L4-L5. Postsurgical changes of total left hip arthroplasty is noted. The visualized hardware is intact. CT/CT abdomen pelvis w con IMPRESSION: 1. Persistent subtle hypodensity involving the distal part of the body and tail of the pancreas consistent with mild interstitial pancreatitis. Possibility of cystic lesion in this region is not excluded. Follow-up nonemergent MRI per pancreatic mass protocol with and without contrast may be considered for further clarification. 2. Nondilated biliary tree and nonvisualized gallbladder, presumably surgically absent. 3. Diffuse hepatic steatosis. 4. Persistent nonspecific mural thickening involving the pylorus of the stomach. Direct visualization/endoscopy is recommended for further clarification. 5. Colonic diverticulosis without any CT features of superimposed acute diverticulitis. 7. Nonspecific apparent mural thickening involving the hepatic flexure and the right-sided colon including the cecum, may represent physiologic changes secondary to suboptimal distention versus mild early nonspecific colitis. 8. Solitary 2 to 3 mm radiopaque density within the inferior calyx of the left kidney, consistent with nonobstructing left renal calculus. 6. Apparent fusion at L5-S1 and moderate to severe degenerative spondylosis at L4-L5 and postsurgical changes of left hip hemiarthroplasty with intact visualized hardware. ECG Data Attestation: I personally reviewed and interpreted this ECG as follows: ECG interpretation date: 01/09/21 ECG interpretation time: 13:49 Prior ECG tracings: available for review Interpretation: Vent. rate 115 BPM NJ interval 160 ms QRS duration 64 ms QT/QTc 378/522 ms P-R-T axes * -28 29 Sinus tachycardia with Premature supraventricular complexes Low voltage QRS Cannot rule out Anterior infarct , age undetermined Prolonged QT Abnormal ECG When compared with ECG of 24-NOV-2020 16:29, Premature supraventricular complexes are now Present Vent. rate has increased BY 42 BPM Nonspecific T wave abnormality, improved in Inferior leads Nonspecific T wave abnormality, improved in Anterolateral leads Critical Care Time Critical Care Time Critical Care Time: Yes Total Critical Care Time: 65 Attestation: I have personally provided critical care time exclusive of time spent on separately billable procedures. Time includes review of laboratory data, radiology results, discussion with consultants, and monitoring for potential decompensation. Interventions were performed as documented. Discharge Plan Discharge Clinical Impression: Neutropenic fever, Pancytopenia, Acute hypokalemia, Hypomagnesemia, Neutropaenic precautions Patient Disposition: Admitted As Inpatient
[2021-01-09 13:36] LABS: Hematocrit 29.5 % (37-47); Hemoglobin 9.5 g/dl (12.0-16.0); Mean Corpuscular HGB Conc 32.2 g/dl (31.0-35.0); Mean Corpuscular Hemoglobin 34.1 pg (27.0-33.0); Mean Corpuscular Volume 105.7 fL (80-98); Mean Platelet Volume 12.7 fL (9.4-12.3); Red Blood Count 2.79 X10*6/uL (4.20-5.50)
[2021-01-09 13:38] VITALS: BP 114/47; PULSE 104; RESP 16; TEMP 38.8; O2SAT 96
[2021-01-09 13:43] LABS: INTERNATIONAL NORM RATIO 1.3 (0.9-1.1); Prothrombin Time 15.3 SEC (10.8-13.0)
[2021-01-09 13:45] LABS: Partial Thromboplastin Time 25.9 SEC (24.1-38.0)
[2021-01-09 13:47] LABS: Platelet Count 50 X10*3/uL (160-400); White Blood Count 0.6 X10*3/uL (4.8-10.8)
[2021-01-09 14:06] LABS: Magnesium 1.5 mg/dL (1.6-2.6)
[2021-01-09 14:08] LABS: Band Neutrophils Percent 12 % (3-5); Lymphocytes Absolute Manual 0.1 X10*3/uL (0.6-4.8); Lymphocytes Percent Manual 16 % (20-40); Monocytes Percent Manual 8 % (2-11); Neutrophils Absolute Manual 0.5 X10*3/uL (2.2-7.9); Neutrophils Percent Manual 64 % (45-73); RBC Morphology NOTED
[2021-01-09 14:09] LABS: Acanthocytes 2+ (3-5) /OIF; Alanine Aminotransferase 25 U/L (0-31); Albumin Level 1.8 g/dL (3.5-5.0); Alkaline Phosphatase 56 U/L (39-117); Anion Gap 11 (12-20); Aspartate Amino Transferase 27 U/L (5-31); Bilirubin Direct 0.7 mg/dL (0.0-0.5); Bilirubin Total 1.2 mg/dL (0.0-1.0); Blood Urea Nitrogen 13 mg/dL (9-16); Calcium 6.8 mg/dL (8.4-10.2); Carbon Dioxide 19 mmol/L (22-29); Chloride 111 mmol/L (96-108); Creatinine Clr Calc Pharmacy 81.5; Estimated Glomerular Filt Rate > 60; Glucose Random 182 mg/dL (60-115); Lipase 10 U/L (8-78); Macrocytosis 2+ (15-30) /OIF; Ovalocytes 1+ (5-14) /OIF; Potassium 3.2 mmol/L (3.3-5.1); Schistocytes 1+ (0-2) /OIF; Sodium 138 mmol/L (135-145); Total Protein 5.9 g/dL (6.5-8.0)
[2021-01-09 14:10] LABS: Platelet Estimate DECREASED (NORMAL); Platelet Morphology Comment NORMAL
[2021-01-09 14:11] LABS: B Type Natriuretic Peptide 206 pg/mL (<100); Nucleated Red Blood Cells 1 /100WBC (0-0)
[2021-01-09 14:12] LABS: Troponin-I High Sensitivity 5.4 ng/L (<3.5-17.0)
[2021-01-09] MEDS: Acetaminophen 325 MG TABLET 650 MG PO (14:12)
[2021-01-09] MEDS: Metoclopramide HCl 10 MG/2 ML VIAL IVPUSH (14:12)
[2021-01-09] MEDS: cefEPime HCl 2 GM in 0.9 % Sodium Chloride 50 ML IV ×2 (14:13→23:09)
[2021-01-09] MEDS: diphenhydrAMINE HCL 50 MG/ML VIAL 25 MG IVPUSH (14:13)
[2021-01-09] MEDS: 0.9 % Sodium Chloride 1,000 ML 999 ML IVCONT (14:13)
[2021-01-09 14:23] LABS: Glucose Urine UA NEG (NEG); Leukocyte Esterase Urine NEG (NEG); Nitrite Urine NEG (NEG); PH 5.5 (5.0-8.0); Specific Gravity - Urine 1.025 (1.005-1.025); Urine Blood 3+ (NEG); Urine Ketones NEG (NEG); Urine Protein 1+ MG/DL (NEG-TRACE)
[2021-01-09 14:24] LABS: Appearance Urine HAZY; Color Urine YELLOW
[2021-01-09 14:30] LABS: Squamous Epithelial Cell Urine 3+ /LPF; WBC Urine 0-2 /HPF (0-4)
[2021-01-09 14:31] LABS: Mucus Urine 1+ /LPF
[2021-01-09] MEDS: iohexoL 350 MG/ML 100 ML INFUS..BTL IV (14:56)
[2021-01-09 15:04] LABS: Influenza A PCR NEGATIVE (Negative); Influenza B PCR NEGATIVE (Negative); Resp Syncy Virus RNA Qual PCR NEGATIVE (Negative); SARS COV2 PCR INHOUSE NEGATIVE (Negative)
[2021-01-09 15:32] LABS: Reflex Lactate? Lactic Acid Added
--- NOTE | 2021-01-09 15:53 | P.HPHOSP_ITS ---
History of Present Illness Date of Service: 01/09/21 Chief Complaint: n/v 75F presented with abdominal pain, nausea, and vomitting for 2 days. 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 for the past 2 days patient has had epigastric pain, inability to tolerate po, nausea, vomitting, low grade fevers. symptoms were persistent and not ocntrolled by [facility] and [place], so she came to ED. in ED patient with pancytopenia, ANC 500, platelets 50, febrile 101.8. ct abd showed persistent mild interstitial pancreatitis, persistent nonspecific mural thickening of pylorus. Review of Systems Review of Systems: Constitutional: fever, Chills Eyes: denies blurry vision ENT: denies sore throat CVS: denies chest pain Respiratory: Denies dyspnea GI:abdominal pain : denies dysuria MSK: denies neck pain Skin: denies rash Neuro: denies specific motor weakness Psych: denies suicidal ideation Endocrine: denies heat/cold intoleratnce Hematologic: denies easy bleeding Allergy: denies hives [facility] Medical History Diabetes mellitus type 2, controlled, without complications Essential hypertension Hypercalcemia Hyperlipidemia, unspecified Hypoglycemia unawareness associated with type 2 diabetes mellitus Obstructive sleep apnea Pancytopenia Subclinical hyperthyroidism Family History Father No problems noted. Mother Heart disease Brother Atrial fibrillation Brother Atrial fibrillation Brother Atrial fibrillation Family history: reviewed and not pertinent Surgical History History of knee replacement History of left hip replacement Social History Household Members: Children Household Members Other:: 3 Housing: House Do you presently have visiting nurse or other home services: Yes Alcohol intake: never Advance Directives: Yes Advance Directives on File: Yes Advance Directives Date on File: 10/09/20 service: No Current occupational status: retired Meds Allergies Allergy/AdvReac Type Severity Reaction Status Date / Time codeine [CODEINE] Allergy Intermediate NAUSEA & Verified 10/25/20 10:17 VOMITING, vomiting lisinopril [LISINOPRIL] Allergy Intermediate COUGH, Verified 10/25/20 10:17 Coughing sulfamethoxazole Allergy Intermediate RASH Verified 10/25/20 10:17 [From BACTRIM] Active Medications: Current Medications Generic Name Dose Route Start Last Admin Trade Name Marjorie PRN Reason Stop Dose Admin Magnesium Sulfate 2 gm in 50 mls @ 25 mls/hr 01/09/21 14:07 Magnesium Sulfate/H2o IV 01/09/21 16:06 ONCE ONE Home Medications Medication Instructions Recorded Confirmed Last Taken Type aspirin 81 mg chewable tablet 81 mg PO DAILY 04/22/20 01/09/21 11/24/20 History docusate sodium 100 mg capsule 100 mg PO BID PRN 04/22/20 01/09/21 10/07/20 History insulin aspart U-100 100 unit/mL 2 - 12 unit SUBCUT TID 04/22/20 01/09/21 Unknown History (3 mL) subcutaneous pen omeprazole 20 mg capsule,delayed 20 mg PO BID 04/22/20 01/09/21 11/24/20 History release polyethylene glycol 3350 [Miralax] 17 g PO DAILY PRN 10/06/20 01/09/21 10/07/20 History sennosides [senna] 8.6 mg PO BEDTIME PRN 10/09/20 01/09/21 10/07/20 History spironolactone 50 mg PO DAILY 01/05/21 01/09/21 Unknown History Physical Exam Vital Signs and Narrative: Vital Signs: Last Vital Signs Temp 101.8 F H 01/09/21 13:38 Pulse 104 H 01/09/21 13:38 Resp 16 01/09/21 13:38 BP 114/47 L 01/09/21 13:38 Pulse Ox 96 01/09/21 13:38 Body Mass Index 38.7 General: lethargic, ill appearing HEENT: atraumatic Neck: normal to visual inspection CVS: S1, S2, RRR Resp: diminished Chest: non tender GI: soft, epigastric tender, non distended : no CVA tenderness Skin: no rashes Extremities: 3+ edema Neuro: Oriented X3, grossly intact Psych: cooperative Results Labs CBC and Chem 7: 01/09/21 13:27 01/09/21 13:27 Labs: Laboratory Results - last 24 hr 01/09/21 01/09/21 01/09/21 13:27 13:27 13:27 MCV 105.7 H MCH 34.1 H MCHC 32.2 RDW 18.0 H Plt Count 50 L D MPV 12.7 H Immature Gran % (Auto) Cancelled Neut % (Auto) Cancelled Lymph % (Auto) Cancelled Williamson % (Auto) Cancelled Eos % (Auto) Cancelled Baso % (Auto) Cancelled Lymph # (Auto) Cancelled Williamson # (Auto) Cancelled Eos # (Auto) Cancelled Baso # (Auto) Cancelled Abs Immat Gran (auto) Cancelled Absolute Neuts (auto) Cancelled Absolute Nucleated RBC 0.000 Nucleated RBC % (auto) 0.0 Neutrophils % (Manual) 64 Band Neutrophils % 12 H Lymphocytes % (Manual) 16 L Monocytes % (Manual) 8 Abs Neuts (Manual) 0.5 L Lymphocytes # (Manual) 0.1 L Nucleated RBCs 1 H Platelet Estimate DECREASED Plt Morphology Comment NORMAL RBC Morphology NOTED Macrocytosis 2+ (15-30) Ovalocytes 1+ (5-14) Acanthocytes (Spur) 2+ (3-5) Schistocytes 1+ (0-2) PT 15.3 H INR 1.3 H APTT 25.9 Anion Gap 11 L Estim Creat Clear Calc 81.5 Estimated GFR > 60 Random Glucose 182 H Lactic Acid Calcium 6.8 L Magnesium Total Bilirubin 1.2 H Direct Bilirubin 0.7 H AST 27 D ALT 25 Alkaline Phosphatase 56 Troponin I High Sens B-Natriuretic Peptide Total Protein 5.9 L Albumin 1.8 L Lipase 10 Urine Color Urine Appearance Urine pH Ur Specific [place] Urine Protein Urine Glucose (UA) Urine Ketones Urine Blood Urine Nitrite Ur Leukocyte Esterase Urine RBC Urine WBC Ur Squamous Epith Cells Urine Bacteria Urine Mucus Coronavirus (PCR) Influenza Type A (PCR) Influenza Type B (PCR) RSV RNA Qual (PCR) 01/09/21 01/09/21 01/09/21 13:27 13:27 13:27 MCV MCH MCHC RDW Plt Count MPV Immature Gran % (Auto) Neut % (Auto) Lymph % (Auto) Williamson % (Auto) Eos % (Auto) Baso % (Auto) Lymph # (Auto) Williamson # (Auto) Eos # (Auto) Baso # (Auto) Abs Immat Gran (auto) Absolute Neuts (auto) Absolute Nucleated RBC Nucleated RBC % (auto) Neutrophils % (Manual) Band Neutrophils % Lymphocytes % (Manual) Monocytes % (Manual) Abs Neuts (Manual) Lymphocytes # (Manual) Nucleated RBCs Platelet Estimate Plt Morphology Comment RBC Morphology Macrocytosis Ovalocytes Acanthocytes (Spur) Schistocytes PT INR APTT Anion Gap Estim Creat Clear Calc Estimated GFR Random Glucose Lactic Acid 3.0 H* Calcium Magnesium 1.5 L Total Bilirubin Direct Bilirubin AST ALT Alkaline Phosphatase Troponin I High Sens 5.4 B-Natriuretic Peptide Total Protein Albumin Lipase Urine Color Urine Appearance Urine pH Ur Specific [place] Urine Protein Urine Glucose (UA) Urine Ketones Urine Blood Urine Nitrite Ur Leukocyte Esterase Urine RBC Urine WBC Ur Squamous Epith Cells Urine Bacteria Urine Mucus Coronavirus (PCR) Influenza Type A (PCR) Influenza Type B (PCR) RSV RNA Qual (PCR) 01/09/21 01/09/21 01/09/21 13:27 14:08 14:11 MCV MCH MCHC RDW Plt Count MPV Immature Gran % (Auto) Neut % (Auto) Lymph % (Auto) Williamson % (Auto) Eos % (Auto) Baso % (Auto) Lymph # (Auto) Williamson # (Auto) Eos # (Auto) Baso # (Auto) Abs Immat Gran (auto) Absolute Neuts (auto) Absolute Nucleated RBC Nucleated RBC % (auto) Neutrophils % (Manual) Band Neutrophils % Lymphocytes % (Manual) Monocytes % (Manual) Abs Neuts (Manual) Lymphocytes # (Manual) Nucleated RBCs Platelet Estimate Plt Morphology Comment RBC Morphology Macrocytosis Ovalocytes Acanthocytes (Spur) Schistocytes PT INR APTT Anion Gap Estim Creat Clear Calc Estimated GFR Random Glucose Lactic Acid Calcium Magnesium Total Bilirubin Direct Bilirubin AST ALT Alkaline Phosphatase Troponin I High Sens B-Natriuretic Peptide 206 H Total Protein Albumin Lipase Urine Color YELLOW Urine Appearance HAZY Urine pH 5.5 Ur Specific [place] 1.025 Urine Protein 1+ H Urine Glucose (UA) NEG Urine Ketones NEG Urine Blood 3+ H Urine Nitrite NEG Ur Leukocyte Esterase NEG Urine RBC 15-29 H Urine WBC 0-2 Ur Squamous Epith Cells 3+ Urine Bacteria NONE Urine Mucus 1+ Coronavirus (PCR) NEGATIVE Influenza Type A (PCR) NEGATIVE Influenza Type B (PCR) NEGATIVE RSV RNA Qual (PCR) NEGATIVE Imaging Radiologist's Impressions: Impressions Chest X-Ray 01/09/21 12:49 IMPRESSION: No acute pulmonary disease. Abdomen/Pelvis CT 01/09/21 13:12 IMPRESSION: 1. Persistent subtle hypodensity involving the distal part of the body and tail of the pancreas consistent with mild interstitial pancreatitis. Possibility of cystic lesion in this region is not excluded. Follow-up nonemergent MRI per pancreatic mass protocol with and without contrast may be considered for further clarification. 2. Nondilated biliary tree and nonvisualized gallbladder, presumably surgically absent. 3. Diffuse hepatic steatosis. 4. Persistent nonspecific mural thickening involving the pylorus of the stomach. Direct visualization/endoscopy is recommended for further clarification. 5. Colonic diverticulosis without any CT features of superimposed acute diverticulitis. 7. Nonspecific apparent mural thickening involving the hepatic flexure and the right-sided colon including the cecum, may represent physiologic changes secondary to suboptimal distention versus mild early nonspecific colitis. 8. Solitary 2 to 3 mm radiopaque density within the inferior calyx of the left kidney, consistent with nonobstructing left renal calculus. 6. Apparent fusion at L5-S1 and moderate to severe degenerative spondylosis at L4-L5 and postsurgical changes of left hip hemiarthroplasty with intact visualized hardware. Assessment and Plan (1) Neutropenic fever: Status: Acute 75F presented with N/V fevers Severe sepsis poa in patient with neutropenia. cefepime follow up cultures ID eval DM inuslin epigastric pain, chronic pancreatitis npo, ivfs, antiemetics MM oncology eval vte prophylaxis - mechanical due to thrombocytopenia DNR/DNI Quality Stroke Does the patient have a stroke diagnosis?: No VTE Prior VTE?: No VTE Risk Level:: Medical - moderate - high VTE Device Contraindication: N/A - Device Ordered VTE Drug Contraindication: Treatment Not Tolerated
[2021-01-09] MEDS: Magnesium Sulfate/H2O 2 GM/50 ML PIGGYBACK IV (16:32)
[2021-01-09] MEDS: Potassium Chloride Packet 20 MEQ PACKET 40 MEQ PO (16:32)
[2021-01-09 18:32] LABS: Reflex Lactate? 2 Y
[2021-01-09 19:22] LABS: ~Lactic Acid-LAB USE ONLY 2.5 mmol/L (0.5-2.0)
[2021-01-09] MEDS: Dextrose 5 % and 0.45 % NaCl 1,000 ML 80 ML IVCONT (22:57)
[2021-01-09] MEDS: Morphine Sulfate 2 MG/ML CARTRIDGE 1 MG IVPUSH (23:09)
[2021-01-10 07:04] LABS: Hematocrit 24.8 % (37-47); Hemoglobin 7.9 g/dl (12.0-16.0); Mean Corpuscular HGB Conc 31.9 g/dl (31.0-35.0); Mean Corpuscular Hemoglobin 33.6 pg (27.0-33.0); Mean Corpuscular Volume 105.5 fL (80-98); Mean Platelet Volume 11.9 fL (9.4-12.3); Red Blood Count 2.35 X10*6/uL (4.20-5.50); Red Cell Distribution Width 18.2 % (11.0-16.0)
[2021-01-10 07:06] LABS: Platelet Count 42 X10*3/uL (160-400); WBC ABN SCTR FOR CBC 1; White Blood Count 1.3 X10*3/uL (4.8-10.8)
[2021-01-10] MEDS: cefEPime HCl 2 GM in 0.9 % Sodium Chloride 50 ML IV ×3 (07:41→21:56)
[2021-01-10] MEDS: Omeprazole 20 MG CAPSULE.DR PO ×2 (07:41→17:08)
[2021-01-10] MEDS: Metoclopramide HCl 5 MG TABLET PO ×3 (07:41→17:08)
[2021-01-10 07:43] LABS: Anion Gap 7 (12-20); Blood Urea Nitrogen 15 mg/dL (9-16); Calcium 6.3 mg/dL (8.4-10.2); Carbon Dioxide 22 mmol/L (22-29); Chloride 114 mmol/L (96-108); Creatinine Clr Calc Pharmacy 76.3; Estimated Glomerular Filt Rate > 60; Glucose Fasting 172 mg/dL (60-99); Magnesium 1.9 mg/dL (1.6-2.6); Potassium 3.8 mmol/L (3.3-5.1); Sodium 139 mmol/L (135-145)
[2021-01-10 07:51] VITALS: BP 106/55; PULSE 86; RESP 18; TEMP 36.8; O2SAT 97
--- NOTE | 2021-01-10 07:55 | PC.NURSE ---
report taken from [facility]alit rn pt admitted, chronically ill pt w nausea and vomitting. pt sts having some nausea this am, denies vomiting. given ordered antiemetics, tolerating po w/o issue. pt cleared for advanced diet, will have diet orders updated per provider. no insulin coverage d/t pt lack of appetite. visitor at bedside, pt vss, awaiting bed assignment. iv fluids infusing through implanted port. wctm.
[2021-01-10 08:08] LABS: Atypical Lymphs Percent Manual 1 % (0-6); Band Neutrophils Percent 25 % (3-5); Basophils Percent Manual 1 % (0-1); Lymphocytes Absolute Manual 0.1 X10*3/uL (0.6-4.8); Lymphocytes Percent Manual 10 % (20-40); Monocytes Percent Manual 2 % (2-11); Neutrophils Absolute Manual 1.1 X10*3/uL (2.2-7.9); Neutrophils Percent Manual 61 % (45-73)
[2021-01-10 08:13] LABS: RBC Morphology NORMAL
[2021-01-10 08:14] LABS: Acanthocytes 1+ (0-2) /OIF; Macrocytosis 1+ (5-14) /OIF; Platelet Estimate DECREASED (NORMAL); Platelet Morphology Comment NORMAL; Schistocytes 1+ (0-2) /OIF
[2021-01-10 09:21] VITALS: BP 107/53; PULSE 87; RESP 16; TEMP 36.9; O2SAT 99
[2021-01-10 09:22] VITALS: BP 107/53
[2021-01-10] MEDS: Spironolactone 25 MG TABLET 50 MG PO (09:22)
[2021-01-10] MEDS: vancomycin HCL 1,500 MG in 0.9 % Sodium Chloride 500 ML 333.33 MG IV (09:22)
[2021-01-10] MEDS: Atovaquone 750 MG/5 ML ORAL.SUSP 1500 MG PO (09:22)
[2021-01-10] MEDS: Acyclovir 200 MG CAPSULE 400 MG PO (09:23)
[2021-01-10] MEDS: Magnesium Oxide 400 MG TABLET PO ×2 (09:23→17:08)
[2021-01-10 10:49] LABS: Glucose, Whole Blood 138 mg/dL (60-115)
--- NOTE | 2021-01-10 11:01 | HO.PM.IMPN ---
Subjective Subjective Date of Service: 01/10/21 Interval History: feeling better, has appetite Cardiovascular Cardiovascular: Reports no additional cardiovascular complaints Respiratory Respiratory: Reports no additional respiratory complaints Physical Exam Vital Signs: Vital Signs: Last Vital Signs Temp 98.4 F 01/10/21 09:21 Pulse 87 01/10/21 09:21 Resp 16 01/10/21 09:21 BP 107/53 L 01/10/21 09:22 Pulse Ox 99 01/10/21 09:21 Body Mass Index 38.7 General: AO X 3, no acute distress Resp: CTA bilateral CVS: S1,S2,RRR GI: soft, mild epigastric tender, non distended Neuro: motor grossly intact Psych: appropriate affect Objective Data Current Medications Generic Name Dose Route Start Last Admin Trade Name Freq PRN Reason Stop Dose Admin Acetaminophen 650 mg 01/09/21 19:19 Acetaminophen 325 Mg Tablet PO Q6H PRN Pain, Mild (Pain Scale 1-3) Acyclovir 400 mg 01/10/21 09:00 01/10/21 09:23 Acyclovir 200 Mg Capsule PO 400 mg DAILY DONAVAN Administration Atovaquone 1,500 mg 01/10/21 09:00 01/10/21 09:22 Atovaquone 750 Mg/5 Ml Oral.Susp PO 1,500 mg DAILY DONAVAN Administration Cefepime HCl 2 gm/ Sodium 50 mls @ 100 mls/hr 01/09/21 22:00 01/10/21 09:21 Chloride IV Infused Q8H DONAVAN Infusion Vancomycin HCl 1,500 mg/ 500 mls @ 333.333 mls/hr 01/10/21 08:00 01/10/21 10:52 Sodium Chloride IV Infused Q24H DONAVAN Infusion Dextrose/Sodium Chloride 1,000 mls @ 80 mls/hr 01/10/21 12:00 D51/2ns IVCONT .[id number] [facility] Insulin Human Lispro 0 unit 01/09/21 19:19 01/10/21 07:25 Insulin Lispro 100 Unit/Ml 3 Ml Vial SUBCUT Not Given QIDACHS [facility] Protocol Magnesium Oxide 400 mg 01/09/21 19:19 01/10/21 09:23 Magnesium Oxide 400 Mg Tablet PO 400 mg BIDPC DONAVAN Administration Metoclopramide HCl 5 mg 01/09/21 19:19 01/10/21 07:41 Metoclopramide Hcl 5 Mg Tablet PO 5 mg TIDAC [facility] Administration Morphine Sulfate 1 mg 01/09/21 22:24 01/09/21 23:09 Morphine Sulfate 2 Mg/Ml Cartridge IVPUSH 1 mg Q6H PRN Administration Breakthrough Pain Omeprazole 20 mg 01/10/21 06:30 01/10/21 07:41 Omeprazole 20 Mg Capsule. PO 20 mg BID@3630,7180 [facility] Administration Pharmacy Consult 1 each 01/10/21 07:45 Consult Rx Vancomycin Dosing MISCELLANE DAILY PRN Consult order Sodium Chloride 3 ml 01/09/21 19:19 01/10/21 07:25 0.9 % Sodium Chloride Flush 3 Ml Syringe IVFLUSH Not Given QSHIFT [facility] Spironolactone 50 mg 01/10/21 09:00 01/10/21 09:22 Spironolactone 25 Mg Tablet PO 50 mg DAILY [facility] Administration Protocol Labs CBC & Chem 7: 01/10/21 06:45 01/10/21 06:45 Labs: Laboratory Results - last 24 hr 01/09/21 01/09/21 01/09/21 13:27 13:27 13:27 WBC 0.6 L* RBC 2.79 L Hgb 9.5 L Hct 29.5 L MCV 105.7 H MCH 34.1 H MCHC 32.2 RDW 18.0 H Plt Count 50 L D MPV 12.7 H Immature Gran % (Auto) Cancelled Neut % (Auto) Cancelled Lymph % (Auto) Cancelled [place] % (Auto) Cancelled Eos % (Auto) Cancelled Baso % (Auto) Cancelled Lymph # (Auto) Cancelled [place] # (Auto) Cancelled Eos # (Auto) Cancelled Baso # (Auto) Cancelled Abs Immat Gran (auto) Cancelled Absolute Neuts (auto) Cancelled Absolute Nucleated RBC 0.000 Nucleated RBC % (auto) 0.0 Neutrophils % (Manual) 64 Band Neutrophils % 12 H Lymphocytes % (Manual) 16 L Atypical Lymphs % (Man) Monocytes % (Manual) 8 Basophils % (Manual) Abs Neuts (Manual) 0.5 L Lymphocytes # (Manual) 0.1 L Nucleated RBCs 1 H Platelet Estimate DECREASED Plt Morphology Comment NORMAL RBC Morphology NOTED Macrocytosis 2+ (15-30) Ovalocytes 1+ (5-14) Acanthocytes (Spur) 2+ (3-5) Schistocytes 1+ (0-2) PT 15.3 H INR 1.3 H APTT 25.9 Sodium 138 Potassium 3.2 L Chloride 111 H Carbon Dioxide 19 L Anion Gap 11 L BUN 13 Creatinine 0.73 Estim Creat Clear Calc 81.5 Estimated GFR > 60 POC Glucose Random Glucose 182 H Fasting Glucose Lactic Acid Lactic Acid Fup @ 2Hr Lactic Acid Fup @ 4Hr Calcium 6.8 L Magnesium Total Bilirubin 1.2 H Direct Bilirubin 0.7 H AST 27 D ALT 25 Alkaline Phosphatase 56 Troponin I High Sens B-Natriuretic Peptide Total Protein 5.9 L Albumin 1.8 L Lipase 10 Urine Color Urine Appearance Urine pH Ur Specific [place] Urine Protein Urine Glucose (UA) Urine Ketones Urine Blood Urine Nitrite Ur Leukocyte Esterase Urine RBC Urine WBC Ur Squamous Epith Cells Urine Bacteria Urine Mucus Coronavirus (PCR) Influenza Type A (PCR) Influenza Type B (PCR) RSV RNA Qual (PCR) 01/09/21 01/09/21 01/09/21 13:27 13:27 13:27 WBC RBC Hgb Hct MCV MCH MCHC RDW Plt Count MPV Immature Gran % (Auto) Neut % (Auto) Lymph % (Auto) [place] % (Auto) Eos % (Auto) Baso % (Auto) Lymph # (Auto) [place] # (Auto) Eos # (Auto) Baso # (Auto) Abs Immat Gran (auto) Absolute Neuts (auto) Absolute Nucleated RBC Nucleated RBC % (auto) Neutrophils % (Manual) Band Neutrophils % Lymphocytes % (Manual) Atypical Lymphs % (Man) Monocytes % (Manual) Basophils % (Manual) Abs Neuts (Manual) Lymphocytes # (Manual) Nucleated RBCs Platelet Estimate Plt Morphology Comment RBC Morphology Macrocytosis Ovalocytes Acanthocytes (Spur) Schistocytes PT INR APTT Sodium Potassium Chloride Carbon Dioxide Anion Gap BUN Creatinine Estim Creat Clear Calc Estimated GFR POC Glucose Random Glucose Fasting Glucose Lactic Acid 3.0 H* Lactic Acid Fup @ 2Hr Lactic Acid Fup @ 4Hr Calcium Magnesium 1.5 L Total Bilirubin Direct Bilirubin AST ALT Alkaline Phosphatase Troponin I High Sens 5.4 B-Natriuretic Peptide Total Protein Albumin Lipase Urine Color Urine Appearance Urine pH Ur Specific [place] Urine Protein Urine Glucose (UA) Urine Ketones Urine Blood Urine Nitrite Ur Leukocyte Esterase Urine RBC Urine WBC Ur Squamous Epith Cells Urine Bacteria Urine Mucus Coronavirus (PCR) Influenza Type A (PCR) Influenza Type B (PCR) RSV RNA Qual (PCR) 01/09/21 01/09/21 01/09/21 13:27 14:08 14:11 WBC RBC Hgb Hct MCV MCH MCHC RDW Plt Count MPV Immature Gran % (Auto) Neut % (Auto) Lymph % (Auto) [place] % (Auto) Eos % (Auto) Baso % (Auto) Lymph # (Auto) [place] # (Auto) Eos # (Auto) Baso # (Auto) Abs Immat Gran (auto) Absolute Neuts (auto) Absolute Nucleated RBC Nucleated RBC % (auto) Neutrophils % (Manual) Band Neutrophils % Lymphocytes % (Manual) Atypical Lymphs % (Man) Monocytes % (Manual) Basophils % (Manual) Abs Neuts (Manual) Lymphocytes # (Manual) Nucleated RBCs Platelet Estimate Plt Morphology Comment RBC Morphology Macrocytosis Ovalocytes Acanthocytes (Spur) Schistocytes PT INR APTT Sodium Potassium Chloride Carbon Dioxide Anion Gap BUN Creatinine Estim Creat Clear Calc Estimated GFR POC Glucose Random Glucose Fasting Glucose Lactic Acid Lactic Acid Fup @ 2Hr Lactic Acid Fup @ 4Hr Calcium Magnesium Total Bilirubin Direct Bilirubin AST ALT Alkaline Phosphatase Troponin I High Sens B-Natriuretic Peptide 206 H Total Protein Albumin Lipase Urine Color YELLOW Urine Appearance HAZY Urine pH 5.5 Ur Specific [place] 1.025 Urine Protein 1+ H Urine Glucose (UA) NEG Urine Ketones NEG Urine Blood 3+ H Urine Nitrite NEG Ur Leukocyte Esterase NEG Urine RBC 15-29 H Urine WBC 0-2 Ur Squamous Epith Cells 3+ Urine Bacteria NONE Urine Mucus 1+ Coronavirus (PCR) NEGATIVE Influenza Type A (PCR) NEGATIVE Influenza Type B (PCR) NEGATIVE RSV RNA Qual (PCR) NEGATIVE 01/09/21 01/09/21 01/10/21 16:29 19:29 06:45 WBC Cancelled RBC Cancelled Hgb Cancelled Hct Cancelled MCV Cancelled MCH Cancelled MCHC Cancelled RDW Cancelled Plt Count Cancelled MPV Cancelled Immature Gran % (Auto) Neut % (Auto) Lymph % (Auto) [place] % (Auto) Eos % (Auto) Baso % (Auto) Lymph # (Auto) [place] # (Auto) Eos # (Auto) Baso # (Auto) Abs Immat Gran (auto) Absolute Neuts (auto) Absolute Nucleated RBC Cancelled Nucleated RBC % (auto) Cancelled Neutrophils % (Manual) Band Neutrophils % Lymphocytes % (Manual) Atypical Lymphs % (Man) Monocytes % (Manual) Basophils % (Manual) Abs Neuts (Manual) Lymphocytes # (Manual) Nucleated RBCs Platelet Estimate Plt Morphology Comment RBC Morphology Macrocytosis Ovalocytes Acanthocytes (Spur) Schistocytes PT INR APTT Sodium Potassium Chloride Carbon Dioxide Anion Gap BUN Creatinine Estim Creat Clear Calc Estimated GFR POC Glucose Random Glucose Fasting Glucose Lactic Acid Lactic Acid Fup @ 2Hr 2.5 H* Lactic Acid Fup @ 4Hr 3.0 H* Calcium Magnesium Total Bilirubin Direct Bilirubin AST ALT Alkaline Phosphatase Troponin I High Sens B-Natriuretic Peptide Total Protein Albumin Lipase Urine Color Urine Appearance Urine pH Ur Specific [place] Urine Protein Urine Glucose (UA) Urine Ketones Urine Blood Urine Nitrite Ur Leukocyte Esterase Urine RBC Urine WBC Ur Squamous Epith Cells Urine Bacteria Urine Mucus Coronavirus (PCR) Influenza Type A (PCR) Influenza Type B (PCR) RSV RNA Qual (PCR) 01/10/21 01/10/21 01/10/21 06:45 06:45 10:43 WBC 1.3 L RBC 2.35 L Hgb 7.9 L Hct 24.8 L MCV 105.5 H MCH 33.6 H MCHC 31.9 RDW 18.2 H Plt Count 42 L MPV 11.9 Immature Gran % (Auto) Cancelled Neut % (Auto) Cancelled Lymph % (Auto) Cancelled [place] % (Auto) Cancelled Eos % (Auto) Cancelled Baso % (Auto) Cancelled Lymph # (Auto) Cancelled [place] # (Auto) Cancelled Eos # (Auto) Cancelled Baso # (Auto) Cancelled Abs Immat Gran (auto) Cancelled Absolute Neuts (auto) Cancelled Absolute Nucleated RBC 0.000 Nucleated RBC % (auto) 0.0 Neutrophils % (Manual) 61 Band Neutrophils % 25 H Lymphocytes % (Manual) 10 L Atypical Lymphs % (Man) 1 Monocytes % (Manual) 2 Basophils % (Manual) 1 Abs Neuts (Manual) 1.1 L Lymphocytes # (Manual) 0.1 L Nucleated RBCs Platelet Estimate DECREASED Plt Morphology Comment NORMAL RBC Morphology NORMAL Macrocytosis 1+ (5-14) Ovalocytes Acanthocytes (Spur) 1+ (0-2) Schistocytes 1+ (0-2) PT INR APTT Sodium 139 Potassium 3.8 Chloride 114 H Carbon Dioxide 22 Anion Gap 7 L BUN 15 Creatinine 0.78 Estim Creat Clear Calc 76.3 Estimated GFR > 60 POC Glucose 138 H Random Glucose Fasting Glucose 172 H Lactic Acid Lactic Acid Fup @ 2Hr Lactic Acid Fup @ 4Hr Calcium 6.3 L D Magnesium 1.9 Total Bilirubin Direct Bilirubin AST ALT Alkaline Phosphatase Troponin I High Sens B-Natriuretic Peptide Total Protein Albumin Lipase Urine Color Urine Appearance Urine pH Ur Specific [place] Urine Protein Urine Glucose (UA) Urine Ketones Urine Blood Urine Nitrite Ur Leukocyte Esterase Urine RBC Urine WBC Ur Squamous Epith Cells Urine Bacteria Urine Mucus Coronavirus (PCR) Influenza Type A (PCR) Influenza Type B (PCR) RSV RNA Qual (PCR) Microbiology Microbiology Results: Microbiology 01/09/21 13:27 Blood Culture - Preliminary Blood - Venous 01/09/21 13:27 Blood Culture - Preliminary Blood - Venous Quality Stroke Does the patient have a stroke diagnosis?: No VTE Prior VTE?: No VTE Risk Level:: Medical - moderate - high VTE Device Contraindication: N/A - Device Ordered VTE Drug Contraindication: Treatment Not Tolerated Assessment and Plan (1) Neutropenic fever: Status: Acute Assessment and Plan: 75F presented with N/V fevers Severe sepsis poa in patient with neutropenia. blood cultures 2/2 GPC in chains ?source continue vanc, cefepime ID eval DM inuslin epigastric pain, chronic pancreatitis npo, ivfs, antiemetics gi eval MM oncology eval vte prophylaxis - mechanical due to thrombocytopenia DNR/DNI
--- NOTE | 2021-01-10 13:32 | PM.HEMONCCN ---
Subjective - Subjective Patient: known to practice within the last 3 years Consult date: 01/10/21 Primary Care Provider: Iveth Cowart MD HPI - Consult Narrative Reason for consult: neutropenic fever Narrative: Klaudia Dow is a 75 year old female under treatment with Dr. Raman for myeloma withborteximib. She was treated last week and presents with neutropenia and fever.She islon broad spectrum antibiotic coverage. Her white blood cellcount most recently is 1200. She is stable with normal vital signs. Her last temperature was 101. Review of Systems - ENT Reports system reviewed and no additional complaints, except as documented - Cardiovascular Reports shortness of breath with activity - Respiratory Reports other - Gastrointestinal Reports feeling full early - Genitourinary Reports other - Musculoskeletal Reports muscle weakness PMFSH Medical History: Medical History (Last Reviewed 01/09/21 @ 15:56 by Ernesto Morales MD) Diabetes mellitus type 2, controlled, without complications Essential hypertension Hypercalcemia Hyperlipidemia, unspecified Hypoglycemia unawareness associated with type 2 diabetes mellitus Obstructive sleep apnea Pancytopenia Subclinical hyperthyroidism Family History: Family History (Last Reviewed 01/09/21 @ 15:56 by Ernesto Morales MD) Father No problems noted. Mother Heart disease Brother Atrial fibrillation Brother Atrial fibrillation Brother Atrial fibrillation Family history: reviewed and not pertinent Surgical History: Surgical History (Last Reviewed 01/09/21 @ 15:56 by Ernesto Morales MD) History of knee replacement History of left hip replacement Social History: Social History (Last Reviewed 01/09/21 @ 15:56 by Ernesto Morales MD) Living Situation History: Household Members: Family Household Members Other:: 3 Housing: House Do you presently have visiting nurse or other home services: No Alcohol History: Alcohol intake: never Alcohol History Details: Alcohol intake frequency: does not drink Tobacco History: Patient Tobacco Use Status: Never used Tobacco Substance Use History: Use of substances other than those prescribed or required for medical reasons: No Domestic Abuse History: Have you been hit, kicked, punched, or otherwise hurt by someone within the past year? If so, by whom?: No Do you feel safe in your current relationship?: No Current Relationship Is there a partner from a previous relationship who is making you feel unsafe now?: No Are you made to feel afraid or neglected: No Advance Directives: Advance Directives: Yes Advance Directives on File: Yes Advance Directives Date on File: 10/09/20 Homicidal Assessment: Do you have thoughts of harming others: None Do you have a plan to hurt others: No Plan Nutrition Assessment: Recently lost weight without trying: No How much weight loss: Not applicable Eating poorly because of decreased appetite: No Nutrition screen score: 0 Nutrition Risks: No Nutritional Risk Patient : No : No Poor oral hygiene: No Occupation Assessmet: service: No Current occupational status: retired Home Medications and Allergies Current Medications: Current Medications Generic Name Dose Route Start Last Admin Trade Name Freq PRN Reason Stop Dose Admin Acetaminophen 650 mg 01/09/21 19:19 Acetaminophen 325 Mg Tablet PO Q6H PRN Pain, Mild (Pain Scale 1-3) Acyclovir 400 mg 01/10/21 09:00 01/10/21 09:23 Acyclovir 200 Mg Capsule PO 400 mg DAILY DONAVAN Administration Atovaquone 1,500 mg 01/10/21 09:00 01/10/21 09:22 Atovaquone 750 Mg/5 Ml Oral.Susp PO 1,500 mg DAILY DONAVAN Administration Cefepime HCl 2 gm/ Sodium 50 mls @ 100 mls/hr 01/09/21 22:00 01/10/21 09:21 Chloride IV Infused Q8H DONAVAN Infusion Vancomycin HCl 1,500 mg/ 500 mls @ 333.333 mls/hr 01/10/21 08:00 01/10/21 10:52 Sodium Chloride IV Infused Q24H DONAVAN Infusion Insulin Human Lispro 0 unit 01/09/21 19:19 01/10/21 12:27 Insulin Lispro 100 Unit/Ml 3 Ml Vial SUBCUT Not Given QIDACHS [facility] Protocol Magnesium Oxide 400 mg 01/09/21 19:19 01/10/21 09:23 Magnesium Oxide 400 Mg Tablet PO 400 mg BIDPC DONAVAN Administration Metoclopramide HCl 5 mg 01/09/21 19:19 01/10/21 12:15 Metoclopramide Hcl 5 Mg Tablet PO 5 mg TIDAC [facility] Administration Morphine Sulfate 1 mg 01/09/21 22:24 01/09/21 23:09 Morphine Sulfate 2 Mg/Ml Cartridge IVPUSH 1 mg Q6H PRN Administration Breakthrough Pain Omeprazole 20 mg 01/10/21 06:30 01/10/21 07:41 Omeprazole 20 Mg Capsule.Dr PO 20 mg BID@5177,9932 [facility] Administration Pharmacy Consult 1 each 01/10/21 07:45 Consult Rx Vancomycin Dosing MISCELLANE DAILY PRN Consult order Sodium Chloride 3 ml 01/09/21 19:19 01/10/21 07:25 0.9 % Sodium Chloride Flush 3 Ml Syringe IVFLUSH Not Given QSHIFT [facility] Spironolactone 50 mg 01/10/21 09:00 01/10/21 09:22 Spironolactone 25 Mg Tablet PO 50 mg DAILY [facility] Administration Protocol Home Medications Medication Instructions Recorded Confirmed Type aspirin 81 mg chewable tablet 81 mg PO DAILY 04/22/20 01/09/21 History docusate sodium 100 mg capsule 100 mg PO BID PRN 04/22/20 01/09/21 History insulin aspart U-100 100 unit/mL 2 - 12 unit SUBCUT TID 04/22/20 01/09/21 History (3 mL) subcutaneous pen omeprazole 20 mg capsule,delayed 20 mg PO BID 04/22/20 01/09/21 History release polyethylene glycol 3350 [Miralax] 17 g PO DAILY PRN 10/06/20 01/09/21 History sennosides [senna] 8.6 mg PO BEDTIME PRN 10/09/20 01/09/21 History spironolactone 50 mg PO DAILY 01/05/21 01/09/21 History Allergies Allergy/AdvReac Type Severity Reaction Status Date / Time codeine [CODEINE] Allergy Intermediate NAUSEA & Verified 01/10/21 12:51 VOMITING, vomiting lisinopril [LISINOPRIL] Allergy Intermediate COUGH, Verified 01/10/21 12:51 Coughing sulfamethoxazole Allergy Intermediate RASH Verified 01/10/21 12:51 [From BACTRIM] Physical Exam Vital signs: Vital Signs Temp 98.4 F 01/10/21 09:21 Pulse 87 01/10/21 09:21 Resp 16 01/10/21 09:21 BP 107/53 L 01/10/21 09:22 Pulse Ox 99 01/10/21 09:21 Intake & Output 01/09/21 01/10/21 01/10/21 18:59 06:59 18:59 Intake Total 1047.5 / 1147.5 100 / 1147.5 1552.5 / 1552.5 Balance 1047.5 / 1147.5 100 / 1147.5 1552.5 / 1552.5 Intake: Intake, IV Amount 1047.5 / 1147.5 100 / 1147.5 1552.5 / 1552.5 Magnesium Sulfate/H2O 2 gm In 47.5 / 47.5 2.5 / 2.5 50 ml @ 25 mls/hr IV ONCE ONE Rx#:[id number] cefEPime HCl 2 gm In 0.9 % 100 / 100 50 / 50 Sodium Chloride 50 ml @ 100 mls /hr IV Q8H [facility] Rx#:[id number] vancomycin HCL 1,500 mg In 0.9 500 / 500 % Sodium Chloride 500 ml @ 333. 333 mls/hr IV Q24H [facility] Rx#: [id number] 0.9 % Sodium Chloride 1,000 ml 1000 / 1000 @ 999 mls/hr IVCONT .Q1H1M [facility] Rx#:[id number] Dextrose 5 % and 0.45 % NaCl 1, 1000 / 1000 000 ml @ 80 mls/hr IVCONT . [id number] [facility] Rx#:[id number] Other: Last Bowel Movement 01/08/21 Weight 105.6 kg Weight 105.6 kg Hem/Onc Consult Result - Labs CBC & Chem 7: 01/10/21 06:45 01/10/21 06:45 Labs: Short CBC 01/09/21 01/10/21 01/10/21 Range/Units 13:27 06:45 06:45 WBC 0.6 L* Cancelled 1.3 L (4.8-10.8) X10*3/uL Hgb 9.5 L Cancelled 7.9 L (12.0-16.0) g/dl Hct 29.5 L Cancelled 24.8 L (37-47) % Plt Count 50 L D Cancelled 42 L (160-400) X10*3/uL BMP 01/09/21 01/10/21 13:27 06:45 Sodium 138 139 Potassium 3.2 L 3.8 Chloride 111 H 114 H Carbon Dioxide 19 L 22 BUN 13 15 Creatinine 0.73 0.78 Calcium 6.8 L 6.3 L D Liver Function 01/09/21 Range/Units 13:27 Total Bilirubin 1.2 H (0.0-1.0) mg/dL Direct Bilirubin 0.7 H (0.0-0.5) mg/dL AST 27 D (5-31) U/L ALT 25 (0-31) U/L Alkaline Phosphatase 56 (39-117) U/L Albumin 1.8 L (3.5-5.0) g/dL Urine 01/09/21 Range/Units 14:11 Urine Color YELLOW Urine Appearance HAZY Urine pH 5.5 (5.0-8.0) Ur Specific [place] 1.025 (1.005-1.025) Urine Protein 1+ H (NEG-TRACE) MG/DL Urine Glucose (UA) NEG (NEG) MG/DL Assessment and Plan (1) Neutropenic fever Start date: 01/10/21 Status: Acute She is stable. I agree with current antibiotics. She should have daily CBCs. I will be available in follow her.
--- NOTE | 2021-01-10 13:40 | PC.NURSE ---
not an IMC admission,no need for registered nurse cardiac telemetry.This RN verified with Dr Morales today.
[2021-01-10 14:23] VITALS: BP 99/54; PULSE 79; RESP 16; TEMP 36.3; O2SAT 98
--- NOTE | 2021-01-10 15:03 | MHC.CM.PN ---
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 SHE HAD HER CHEMOTHERAPY ON MONDAY AND SOON AFTER STARTED HAVING FEVER NAUSEA AND EMESIS EPIGASTRIC [PAIN AND CAME TO THE ER PER DOCUMENTATION SHE WAS DIAGNOSED WITH NEUTROGENA ,FEVER AND PANCYTOPENA SHE WAS IN THE ER AND CMAE UP TO THE MEDICAL SURGICAL FLOOR THIS AFTERNOON. 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 SHE HAD BEEN ACTIVE WITH [facility] FOR [facility] AND HOME PHYSICAL THEAPRUY AND WOULD LIKE TO HAVE THEM BACK IF NEEDED AT DISCHARGE, DISCHARGE PLAN HOME NO SERVICES , VS HOME WITH NEW REFERRAL TO THE [facility] FOR NURSING AND HOME PHYSICAL THERAPY PCP [facility] DISCHARGE FOLLOW UP WITH DR PRITCHETT TRANSPORTATION FAMILY
[2021-01-10 15:32] VITALS: BP 101/49; PULSE 89; RESP 20; TEMP 36; O2SAT 98
[2021-01-10 16:18] LABS: Glucose, Whole Blood 145 mg/dL (60-115)
[2021-01-10] MEDS: 0.9 % Sodium Chloride Flush 3 ML SYRINGE IVFLUSH (17:11)
[2021-01-10 20:36] LABS: Glucose, Whole Blood 171 mg/dL (60-115)
[2021-01-10 23:32] VITALS: BP 104/55; PULSE 96; RESP 16; TEMP 36.6; O2SAT 98
[2021-01-11] MEDS: cefEPime HCl 2 GM in 0.9 % Sodium Chloride 50 ML IV (05:43)
[2021-01-11] MEDS: Omeprazole 20 MG CAPSULE.DR PO ×2 (05:44→16:37)
[2021-01-11 07:36] VITALS: BP 108/58; PULSE 75; RESP 16; TEMP 36.7; O2SAT 98
[2021-01-11 07:41] LABS: Glucose, Whole Blood 112 mg/dL (60-115)
[2021-01-11 08:32] LABS: Red Blood Count 2.24 X10*6/uL (4.20-5.50)
[2021-01-11 08:34] LABS: Hematocrit 23.6 % (37-47); Hemoglobin 7.7 g/dl (12.0-16.0); Mean Corpuscular HGB Conc 32.6 g/dl (31.0-35.0); Mean Corpuscular Hemoglobin 34.4 pg (27.0-33.0); Mean Corpuscular Volume 105.4 fL (80-98); Mean Platelet Volume 12.1 fL (9.4-12.3)
[2021-01-11 08:35] LABS: PLT ABN DIST 1; Platelet Count 40 X10*3/uL (160-400)
[2021-01-11 08:49] VITALS: BP 108/58; PULSE 75
[2021-01-11] MEDS: Magnesium Oxide 400 MG TABLET PO ×2 (08:49→16:37)
[2021-01-11] MEDS: Acyclovir 200 MG CAPSULE 400 MG PO (08:49)
[2021-01-11] MEDS: Spironolactone 25 MG TABLET 50 MG PO (08:49)
[2021-01-11] MEDS: 0.9 % Sodium Chloride Flush 3 ML SYRINGE IVFLUSH ×2 (08:50→16:36)
[2021-01-11] MEDS: Atovaquone 750 MG/5 ML ORAL.SUSP 1500 MG PO (08:50)
[2021-01-11] MEDS: vancomycin HCL 1,500 MG in 0.9 % Sodium Chloride 500 ML 333.33 MG IV (08:50)
[2021-01-11] MEDS: Metoclopramide HCl 5 MG TABLET PO ×3 (08:50→16:37)
[2021-01-11 09:18] LABS: Anion Gap 4 (12-20); Blood Urea Nitrogen 15 mg/dL (9-16); Calcium 6.5 mg/dL (8.4-10.2); Carbon Dioxide 23 mmol/L (22-29); Chloride 115 mmol/L (96-108); Creatinine Clr Calc Pharmacy 82.7; Estimated Glomerular Filt Rate > 60; Glucose Fasting 134 mg/dL (60-99); Potassium 3.4 mmol/L (3.3-5.1); Sodium 139 mmol/L (135-145)
--- NOTE | 2021-01-11 09:42 | HO.PM.IMPN ---
Subjective Subjective Date of Service: 01/11/21 Interval History: feels much better Cardiovascular Cardiovascular: Reports no additional cardiovascular complaints Gastrointestinal Gastrointestinal: Reports no additional gastrointestinal complaints Physical Exam Vital Signs: Vital Signs: Last Vital Signs Temp 98.0 F 01/11/21 07:36 Pulse 75 01/11/21 08:49 Resp 16 01/11/21 07:36 BP 108/58 L 01/11/21 08:49 Pulse Ox 98 01/11/21 07:36 Body Mass Index 38.7 General: AO X 3, no acute distress Resp: CTA bilateral CVS: S1,S2,RRR GI: soft, non tender, non distended Neuro: motor grossly intact Psych: appropriate affect Objective Data Current Medications Generic Name Dose Route Start Last Admin Trade Name Freq PRN Reason Stop Dose Admin Acetaminophen 650 mg 01/09/21 19:19 Acetaminophen 325 Mg Tablet PO Q6H PRN Pain, Mild (Pain Scale 1-3) Acyclovir 400 mg 01/10/21 09:00 01/11/21 08:49 Acyclovir 200 Mg Capsule PO 400 mg DAILY DONAVAN Administration Atovaquone 1,500 mg 01/10/21 09:00 01/11/21 08:50 Atovaquone 750 Mg/5 Ml Oral.Susp PO 1,500 mg DAILY DONAVAN Administration Cefepime HCl 2 gm/ Sodium 50 mls @ 100 mls/hr 01/09/21 22:00 01/11/21 06:23 Chloride IV Infused Q8H [facility]AN Infusion Vancomycin HCl 1,500 mg/ 500 mls @ 333.333 mls/hr 01/10/21 08:00 01/11/21 08:50 Sodium Chloride IV 333.33 mls/hr Q24H [facility] Administration Insulin Human Lispro 0 unit 01/09/21 19:19 01/11/21 07:42 Insulin Lispro 100 Unit/Ml 3 Ml Vial SUBCUT Not Given QIDACHS [facility] Protocol Magnesium Oxide 400 mg 01/09/21 19:19 01/11/21 08:49 Magnesium Oxide 400 Mg Tablet PO 400 mg BIDPC [facility] Administration Metoclopramide HCl 5 mg 01/09/21 19:19 01/11/21 08:50 Metoclopramide Hcl 5 Mg Tablet PO 5 mg TIDAC [facility] Administration Morphine Sulfate 1 mg 01/09/21 22:24 01/09/21 23:09 Morphine Sulfate 2 Mg/Ml Cartridge IVPUSH 1 mg Q6H PRN Administration Breakthrough Pain Omeprazole 20 mg 01/10/21 06:30 01/11/21 05:44 Omeprazole 20 Mg Capsule. PO 20 mg BID@0630,6280 [facility] Administration Ondansetron HCl 4 mg 01/10/21 18:43 Ondansetron Hcl 4 Mg/2 Ml Vial IVPUSH Q6H PRN nausea Pharmacy Consult 1 each 01/10/21 07:45 Consult Rx Vancomycin Dosing MISCELLANE DAILY PRN Consult order Potassium Chloride 40 meq 01/11/21 09:41 Potassium Chloride Er 20 Meq Tab.Er.Prt PO 01/11/21 09:42 ONCE ONE Sodium Chloride 3 ml 01/09/21 19:19 01/11/21 08:50 0.9 % Sodium Chloride Flush 3 Ml Syringe IVFLUSH 3 ml QSHIFT [facility] Administration Spironolactone 50 mg 01/10/21 09:00 01/11/21 08:49 Spironolactone 25 Mg Tablet PO 50 mg DAILY DONAVAN Administration Protocol Labs CBC & Chem 7: 01/11/21 08:17 01/11/21 08:17 Labs: Laboratory Results - last 24 hr 01/10/21 01/10/21 01/10/21 10:43 16:11 20:28 WBC RBC Hgb Hct MCV MCH MCHC RDW Plt Count MPV Absolute Nucleated RBC Nucleated RBC % (auto) Sodium Potassium Chloride Carbon Dioxide Anion Gap BUN Creatinine Estim Creat Clear Calc Estimated GFR POC Glucose 138 H 145 H 171 H Fasting Glucose Calcium 01/11/21 01/11/21 01/11/21 07:33 08:17 08:17 WBC 1.0 L RBC 2.24 L Hgb 7.7 L Hct 23.6 L MCV 105.4 H MCH 34.4 H MCHC 32.6 RDW 18.0 H Plt Count 40 L MPV 12.1 Absolute Nucleated RBC 0.000 Nucleated RBC % (auto) 0.0 Sodium 139 Potassium 3.4 Chloride 115 H Carbon Dioxide 23 Anion Gap 4 L BUN 15 Creatinine 0.72 Estim Creat Clear Calc 82.7 Estimated GFR > 60 POC Glucose 112 Fasting Glucose 134 H Calcium 6.5 L Microbiology Microbiology Results: Microbiology 01/09/21 13:27 Blood Culture - Preliminary Blood - Venous Streptococcus pneumoniae 01/09/21 13:27 Blood Culture - Preliminary Blood - Venous Streptococcus pneumoniae Quality Stroke Does the patient have a stroke diagnosis?: No VTE Prior VTE?: No VTE Risk Level:: Medical - moderate - high VTE Device Contraindication: N/A - Device Ordered VTE Drug Contraindication: Treatment Not Tolerated Assessment and Plan (1) Neutropenic fever: Status: Acute Assessment and Plan: 75F presented with N/V fevers Severe sepsis poa in patient with neutropenia. blood cultures 2/2 GPC in chains ?source continue vanc, cefepime ID eval WBC improved, ANC was 1000 yesterday DM inuslin epigastric pain, chronic pancreatitis tolerating diet now MM oncology eval vte prophylaxis - mechanical due to thrombocytopenia DNR/DNI
--- NOTE | 2021-01-11 09:56 | MHC.CLN ---
ESTIMATED KCAL NEEDS DIABETIC, NEUTROPENIC DIET. RECOMMEND CHANGE DIET FROM 1800 KCAL TO 2000 KCAL, TO PROVIDE 29 KCAL/KG CMW. INCREASED CALORIC NEED DUE TO SEPSIS.
--- NOTE | 2021-01-11 09:58 | P.CNHO_ITS ---
Subjective - Subjective Chief complaint: consult for neutropenic fever. Multiple myeloma. On chemo. Patient: known to practice within the last 3 years Consult date: 01/11/21 Requesting Physician: Andrew Primary Care Provider: Iveth Cowart MD Medical Summary: DIAGNOSIS: MULTIPLE MYELOMA. NEUTROPENIC SEPSIS. HPI - Consult Narrative Reason for consult: Consult for: Neutropenic fever. Multiple myeloma. Narrative: Klaudia Dow is a pleasant 75 year old lady, with recent diagnosis of multiple myeloma. She has a history of diabetes, COVID infection in June, complicated by interstitial pancreatitis. She then presented with hypercalcemia. She had an SIEP in 2018: IgG kappa monoclonal protein. Urine IEP: Free light chains. My concern was multiple myeloma. SIEP: IgG 4482, IgA 21, IgM 27. IgG kappa monoclonal band. Free light chains present. Serum free light chain ratio: 586. Beta 2 microglobulin: 22.2. Skeletal survey, 10/06: No fracture or definite bony lesion. Osteopenia versus lucency in the right medial femoral shaft just inferior to the lesser trochanter and left distal femoral shaft. Left hip and knee replacements. Degenerative changes of the spine. Bone marrow from 10/14: Consistent with plasma cell myeloma. Plasma cells are 60-70% of marrow cellularity. Myeloma fish PANEL: Dup(1q), del(13),Del(17p), t(4,14) Detected. She was started on RVD chemotherapy. She has done really well. Her symptoms improved significantly. She was treated last week. She was admitted with fever and neutropenia. Last temperature was 101. Her blood cultures are positive for strep pneumo. She is on broad spectrum antibiotic coverage. Her white blood cell count most recently is 1200. She is stable with normal vital signs. Review of Systems - Constitutional Reports system reviewed and no additional complaints, except as documented, R eports fatigue, Reports fever(s), Reports lack of energy, Denies weight loss - Eyes Reports system reviewed and no additional complaints, except as documented, Denies blurry vision - ENT Reports system reviewed and no additional complaints, except as documented, Reports hearing normal - Cardiovascular Reports system reviewed and no additional complaints, except as documented, Denies chest pain, Denies shortness of breath - Respiratory Reports no additional respiratory complaints, Denies chest congestion - Gastrointestinal Reports system reviewed and no additional complaints, except as documented, Denies abdominal pain, Denies bloating, Denies diarrhea - Genitourinary Reports no additional female genitourinary complaints, Denies blood in urine - Musculoskeletal Reports system reviewed and no additional complaints, except as documented - Integumentary/Breasts Skin/Breast: Reports no additional skin complaints - Neurologic Reports system reviewed and no additional complaints, except as documented, Reports hearing normal, Denies abnormal movements - Psychiatric Reports system reviewed and no additional complaints, except as documented, Denies anxiety - Endocrine Reports no additional endocrine complaints, Denies cold intolerance - Hematologic/Lymphatic Reports system reviewed and no additional complaints, except as documented, Denies easy bleeding - Allergic/Immunologic Reports system reviewed and no additional complaints, except as documented, Denies GI upset with certain foods Oncology Screenings - ECOG Performance Status ECOG Performance Status: 1 [facility] Medical History: Medical History (Last Updated 01/11/21 @ 12:33 by Elvia Alvarez MD) Diabetes mellitus type 2, controlled, without complications Essential hypertension Hypercalcemia Hyperlipidemia, unspecified Hypoglycemia unawareness associated with type 2 diabetes mellitus Obstructive sleep apnea Pancytopenia Streptococcal pneumonia Subclinical hyperthyroidism Functional capacity: uses cane/walker Patient : No Family History: Family History (Last Reviewed 01/11/21 @ 12:32 by Elvia Alvarez MD) Father No problems noted. Mother Heart disease Brother Atrial fibrillation Brother Atrial fibrillation Brother Atrial fibrillation Family history: reviewed and not pertinent Surgical History: Surgical History (Last Reviewed 01/11/21 @ 12:32 by Elvia Alvarez MD) History of knee replacement History of left hip replacement Social History: Social History (Last Reviewed 01/11/21 @ 12:32 by Elvia Alvarez MD) Living Situation History: Household Members: Family Household Members Other:: 3 Housing: House Do you presently have visiting nurse or other home services: No Alcohol History: Alcohol intake: never Alcohol History Details: Alcohol intake frequency: does not drink Tobacco History: Patient Tobacco Use Status: Never used Tobacco Advance Directives: Advance Directives Date on File: 10/09/20 Occupation Assessmet: service: No Current occupational status: disabled Home Medications and Allergies Current Medications: Current Medications Generic Name Dose Route Start Last Admin Trade Name Freq PRN Reason Stop Dose Admin Acetaminophen 650 mg 01/09/21 19:19 Acetaminophen 325 Mg Tablet PO Q6H PRN Pain, Mild (Pain Scale 1-3) Acyclovir 400 mg 01/10/21 09:00 01/11/21 08:49 Acyclovir 200 Mg Capsule PO 400 mg DAILY DONAVAN Administration Atovaquone 1,500 mg 01/10/21 09:00 01/11/21 08:50 Atovaquone 750 Mg/5 Ml Oral.Susp PO 1,500 mg DAILY DONAVAN Administration Cefepime HCl 2 gm/ Sodium 50 mls @ 100 mls/hr 01/09/21 22:00 01/11/21 06:23 Chloride IV Infused Q8H DONAVAN Infusion Vancomycin HCl 1,500 mg/ 500 mls @ 333.333 mls/hr 01/10/21 08:00 01/11/21 08:50 Sodium Chloride IV 333.33 mls/hr Q24H DONAVAN Administration Insulin Human Lispro 0 unit 01/09/21 19:19 01/11/21 07:42 Insulin Lispro 100 Unit/Ml 3 Ml Vial SUBCUT Not Given QIDACHS [facility] Protocol Magnesium Oxide 400 mg 01/09/21 19:19 01/11/21 08:49 Magnesium Oxide 400 Mg Tablet PO 400 mg BIDPC DONAVAN Administration Metoclopramide HCl 5 mg 01/09/21 19:19 01/11/21 08:50 Metoclopramide Hcl 5 Mg Tablet PO 5 mg TIDAC DONAVAN Administration Morphine Sulfate 1 mg 01/09/21 22:24 01/09/21 23:09 Morphine Sulfate 2 Mg/Ml Cartridge IVPUSH 1 mg Q6H PRN Administration Breakthrough Pain Omeprazole 20 mg 01/10/21 06:30 01/11/21 05:44 Omeprazole 20 Mg Capsule. PO 20 mg BID@0630,1630 [facility] Administration Ondansetron HCl 4 mg 01/10/21 18:43 Ondansetron Hcl 4 Mg/2 Ml Vial IVPUSH Q6H PRN nausea Pharmacy Consult 1 each 01/10/21 07:45 Consult Rx Vancomycin Dosing MISCELLANE DAILY PRN Consult order Sodium Chloride 3 ml 01/09/21 19:19 01/11/21 08:50 0.9 % Sodium Chloride Flush 3 Ml Syringe IVFLUSH 3 ml QSHIFT [facility]AVAN Administration Spironolactone 50 mg 01/10/21 09:00 01/11/21 08:49 Spironolactone 25 Mg Tablet PO 50 mg DAILY [facility] Administration Protocol Home Medications Medication Instructions Recorded Confirmed Type aspirin 81 mg chewable tablet 81 mg PO DAILY 04/22/20 01/09/21 History docusate sodium 100 mg capsule 100 mg PO BID PRN 04/22/20 01/09/21 History insulin aspart U-100 100 unit/mL 2 - 12 unit SUBCUT TID 04/22/20 01/09/21 History (3 mL) subcutaneous pen omeprazole 20 mg capsule,delayed 20 mg PO BID 04/22/20 01/09/21 History release polyethylene glycol 3350 [Miralax] 17 g PO DAILY PRN 10/06/20 01/09/21 History sennosides [senna] 8.6 mg PO BEDTIME PRN 10/09/20 01/09/21 History spironolactone 50 mg PO DAILY 01/05/21 01/09/21 History Allergies Allergy/AdvReac Type Severity Reaction Status Date / Time codeine [CODEINE] Allergy Intermediate NAUSEA & Verified 01/10/21 12:51 VOMITING, vomiting lisinopril [LISINOPRIL] Allergy Intermediate COUGH, Verified 01/10/21 12:51 Coughing sulfamethoxazole Allergy Intermediate RASH Verified 01/10/21 12:51 [From BACTRIM] Physical Exam Vital signs: Vital Signs Temp 98.0 F 01/11/21 07:36 Pulse 75 01/11/21 08:49 Resp 16 01/11/21 07:36 BP 108/58 L 01/11/21 08:49 Pulse Ox 98 01/11/21 07:36 Intake & Output 01/10/21 01/11/21 01/11/21 18:59 06:59 18:59 Intake Total 1962.5 / 2542.5 580 / 2542.5 Output Total 1200 / 1200 Balance 1962.5 / 1342.5 -620 / 1342.5 Urine Output (Average ml/kg/hr) 0.95 Intake: Intake, Oral Amount 360 / 840 480 / 840 Intake, IV Amount 1602.5 / 1702.5 100 / 1702.5 Magnesium Sulfate/H2O 2 gm In 2.5 / 2.5 50 ml @ 25 mls/hr IV ONCE ONE Rx#:[id number] cefEPime HCl 2 gm In 0.9 % 100 / 200 100 / 200 Sodium Chloride 50 ml @ 100 mls /hr IV Q8H DONAVAN Rx#:[id number] vancomycin HCL 1,500 mg In 0.9 500 / 500 % Sodium Chloride 500 ml @ 333. 333 mls/hr IV Q24H DONAVAN Rx#: [id number] Dextrose 5 % and 0.45 % NaCl 1, 1000 / 1000 000 ml @ 80 mls/hr IVCONT . [id number] DONAVAN Rx#:[id number] Output: Output, Urine Amount 1200 / 1200 Other: Meal Refused No No NPO No No Lunch % Eaten 100% Dinner % Eaten 75% Urine Bedpan Urine Color Yellow Last Bowel Movement 01/08/21 Weight 105.6 kg - Constitutional Present: mild distress - Routine HEENT Exam Head: Present: normal inspection ENT: Present: normal exam - Routine Neck Exam Present: supple. Absent: JVD - Routine Respiratory Exam Present: CTAB - Routine Cardiovascular Exam Cardiovascular: Present: RRR, S1, S2. Absent: S3, S4 - Routine Abdominal Exam Present: soft, nontender - Routine Rectal Exam Patient deferred: digital exam - Routine Back/Spine/Pelvis Exam Back/Spine: Absent: CVA tenderness - Routine Skin Exam Present: intact Hem/Onc Consult Result - Labs CBC & Chem 7: 01/12/21 05:47 01/12/21 05:47 Labs: Short CBC 01/11/21 Range/Units 08:17 WBC 1.0 L (4.8-10.8) X10*3/uL Hgb 7.7 L (12.0-16.0) g/dl Hct 23.6 L (37-47) % Plt Count 40 L (160-400) X10*3/uL BMP 01/11/21 08:17 Sodium 139 Potassium 3.4 Chloride 115 H Carbon Dioxide 23 BUN 15 Creatinine 0.72 Calcium 6.5 L Assessment and Plan (1) Neutropenic fever Start date: 01/10/21 Status: Acute This is a pleasant 75-year-old lady with a history of diabetes, COVID infection in June, complicated by interstitial pancreatitis. She then presented with hypercalcemia. She had an SIEP in 2018: IgG kappa monoclonal protein. Urine IEP: Free light chains. My concern was multiple myeloma. SIEP: IgG 4482, IgA 21, IgM 27. IgG kappa monoclonal band. Free light chains present. Serum free light chain ratio: 586. Beta 2 microglobulin: 22.2. Skeletal survey, 10/06: No fracture or definite bony lesion. Osteopenia versus lucency in the right medial femoral shaft just inferior to the lesser trochanter and left distal femoral shaft. Left hip and knee replacements. Degenerative changes of the spine. Bone marrow from 10/14: Consistent with plasma cell myeloma. Plasma cells are 60-70% of marrow cellularity. Myeloma fish PANEL: Dup(1q), del(13),Del(17p), t(4,14) Detected. She was started on RVD chemotherapy. She has done really well. Her symptoms improved significantly. She was admitted with fever and neutropenia. her blood cultures are positive for strep pneumo. She is clinically stable. PLAN: I agree with current antibiotics. Will adjust coverage based upon the sensitivities. She will have daily CBCs. Can nudge the WBC count with G-CSF, to expedite bone marrow recovery. Thank you for the consult Will follow along with you, cc: Sofya.
[2021-01-11] MEDS: Potassium Chloride ER 20 MEQ TAB.ER.PRT 40 MEQ PO (10:47)
--- NOTE | 2021-01-11 10:48 | PC.NURSE ---
Pt medicated per emar. She had some difficulty swallowing the K+ tabs, but was able to get them down. Denies any other complaints at this.
[2021-01-11 11:39] LABS: Glucose, Whole Blood 163 mg/dL (60-115)
[2021-01-11] MEDS: Insulin Lispro 100 UNIT/ML 3 ML VIAL SUBCUT ×3 (11:59→20:38)
--- NOTE | 2021-01-11 12:30 | W.PM.IDCN ---
History of Present Illness Data of Consult Service Date: 01/11/21 Requesting physician: Ernesto Morales Primary Care Provider: Iveth Cowart MD [facility] Reason for consult: bacteremia,neutropenic fever She presents to hospital with three days fatigue and then fever to 101 two days ago. She has been receiving chemotherapy for multiple myeloma She had COVID in June and then vaccine Review of Systems Review of Systems: Yes all other systems are reviewed and are negative PMFSH Past Medical History Medical History (Updated 01/11/21 @ 12:33 by Elvia Alvarez MD) Diabetes mellitus type 2, controlled, without complications Essential hypertension Hypercalcemia Hyperlipidemia, unspecified Hypoglycemia unawareness associated with type 2 diabetes mellitus Obstructive sleep apnea Pancytopenia Streptococcal pneumonia Subclinical hyperthyroidism Functional capacity: uses cane/walker Family History Family History Father No problems noted. Mother Heart disease Brother Atrial fibrillation Brother Atrial fibrillation Brother Atrial fibrillation Family history: reviewed and not pertinent Surgical History Surgical History History of knee replacement History of left hip replacement Social History Social History Household Members: Family Household Members Other:: 3 Housing: House Do you presently have visiting nurse or other home services: No Alcohol intake: never Patient Tobacco Use Status: Never used Tobacco Use of substances other than those prescribed or required for medical reasons: No Currently Displaying Signs/Symptoms of Drug Intoxication Withdrawal: No Have you been hit, kicked, punched, or otherwise hurt by someone within the past year? If so, by whom?: No Do you feel safe in your current relationship?: No Current Relationship Is there a partner from a previous relationship who is making you feel unsafe now?: No Are you made to feel afraid or neglected: No Advance Directives: Yes Advance Directives on File: Yes Advance Directives Date on File: 10/09/20 Do you have thoughts of harming others: None Do you have a plan to hurt others: No Plan Recently lost weight without trying: No How much weight loss: Not applicable Eating poorly because of decreased appetite: No Nutrition screen score: 0 Nutrition Risks: No Nutritional Risk Patient : No : No Poor oral hygiene: No service: No Current occupational status: disabled Meds Allergies Allergy/AdvReac Type Severity Reaction Status Date / Time codeine [CODEINE] Allergy Intermediate NAUSEA & Verified 01/10/21 12:51 VOMITING, vomiting lisinopril [LISINOPRIL] Allergy Intermediate COUGH, Verified 01/10/21 12:51 Coughing sulfamethoxazole Allergy Intermediate RASH Verified 01/10/21 12:51 [From BACTRIM] Active Medications: Current Medications Generic Name Dose Route Start Last Admin Trade Name Freq PRN Reason Stop Dose Admin Acetaminophen 650 mg 01/09/21 19:19 Acetaminophen 325 Mg Tablet PO Q6H PRN Pain, Mild (Pain Scale 1-3) Acyclovir 400 mg 01/10/21 09:00 01/11/21 08:49 Acyclovir 200 Mg Capsule PO 400 mg DAILY DONAVAN Administration Atovaquone 1,500 mg 01/10/21 09:00 01/11/21 08:50 Atovaquone 750 Mg/5 Ml Oral.Susp PO 1,500 mg DAILY DONAVAN Administration Ceftriaxone Sodium 1 gm/ 50 mls @ 100 mls/hr 01/11/21 12:00 Sodium Chloride IV Q24H [facility] Insulin Human Lispro 0 unit 01/09/21 19:19 01/11/21 11:59 Insulin Lispro 100 Unit/Ml 3 Ml Vial SUBCUT 2 unit QIDACHS [facility] Administration Protocol Magnesium Oxide 400 mg 01/09/21 19:19 01/11/21 08:49 Magnesium Oxide 400 Mg Tablet PO 400 mg BIDPC DONAVAN Administration Metoclopramide HCl 5 mg 01/09/21 19:19 01/11/21 10:47 Metoclopramide Hcl 5 Mg Tablet PO 5 mg TIDAC DONAVAN Administration Morphine Sulfate 1 mg 01/09/21 22:24 01/09/21 23:09 Morphine Sulfate 2 Mg/Ml Cartridge IVPUSH 1 mg Q6H PRN Administration Breakthrough Pain Omeprazole 20 mg 01/10/21 06:30 01/11/21 05:44 Omeprazole 20 Mg Capsule.Dr PO 20 mg BID@0630,1630 [facility] Administration Ondansetron HCl 4 mg 01/10/21 18:43 Ondansetron Hcl 4 Mg/2 Ml Vial IVPUSH Q6H PRN nausea Pharmacy Consult 1 each 01/10/21 07:45 Consult Rx Vancomycin Dosing MISCELLANE DAILY PRN Consult order Sodium Chloride 3 ml 01/09/21 19:19 01/11/21 08:50 0.9 % Sodium Chloride Flush 3 Ml Syringe IVFLUSH 3 ml QSHIFT [facility] Administration Spironolactone 50 mg 01/10/21 09:00 01/11/21 08:49 Spironolactone 25 Mg Tablet PO 50 mg DAILY DONAVAN Administration Protocol Home Medications Medication Instructions Recorded Confirmed Last Taken Type aspirin 81 mg chewable tablet 81 mg PO DAILY 04/22/20 01/09/21 11/24/20 History docusate sodium 100 mg capsule 100 mg PO BID PRN 04/22/20 01/09/21 10/07/20 History insulin aspart U-100 100 unit/mL 2 - 12 unit SUBCUT TID 04/22/20 01/09/21 Unknown History (3 mL) subcutaneous pen omeprazole 20 mg capsule,delayed 20 mg PO BID 04/22/20 01/09/21 11/24/20 History release polyethylene glycol 3350 [Miralax] 17 g PO DAILY PRN 10/06/20 01/09/21 10/07/20 History sennosides [senna] 8.6 mg PO BEDTIME PRN 10/09/20 01/09/21 10/07/20 History spironolactone 50 mg PO DAILY 01/05/21 01/09/21 Unknown History Physical Exam Vital Signs: Vital Signs: Last Vital Signs Temp 98.0 F 01/11/21 07:36 Pulse 75 01/11/21 08:49 Resp 16 01/11/21 07:36 BP 108/58 L 01/11/21 08:49 Pulse Ox 98 01/11/21 07:36 Body Mass Index 38.7 Const: General: cooperative HENMT: Head: Yes normal to inspection Mouth: Normal oral and palatal mucosa present Resp: Effort & Inspection: normal respiratory effort Cardio: Rate: regular rate Rhythm: regular rhythm GI: Palpation (GI): Soft to palpation and nontender Skin: General skin exam: no rashes or lesions noted Results Labs CBC & Chem 7: 01/11/21 08:17 01/11/21 08:17 Labs: Short CBC 01/11/21 Range/Units 08:17 WBC 1.0 L (4.8-10.8) X10*3/uL Hgb 7.7 L (12.0-16.0) g/dl Hct 23.6 L (37-47) % Plt Count 40 L (160-400) X10*3/uL BMP 01/11/21 08:17 Sodium 139 Potassium 3.4 Chloride 115 H Carbon Dioxide 23 BUN 15 Creatinine 0.72 Calcium 6.5 L Microbiology Microbiology Results: Microbiology 01/09/21 13:27 Blood - Venous Blood Culture - Preliminary Streptococcus pneumoniae 01/09/21 13:27 Blood - Venous Blood Culture - Preliminary Streptococcus pneumoniae Assessment and Plan (1) Neutropenic fever: Status: Acute (2) Streptococcal pneumonia: Status: Acute This is concern over encapsulated organism illness due to multiple myeloma There is lung or sinus or idiopathic source Suggest Continue Ceftriaxone Probable change to po Ceftin total 14 days Pneumovax and Prevnar when able if not had
[2021-01-11] MEDS: cefTRIAXone sodium 1 GM in 0.9 % Sodium Chloride 50 ML IV (12:39)
[2021-01-11 15:20] VITALS: BP 98/58; PULSE 79; RESP 16; TEMP 36.1; O2SAT 100
[2021-01-11 16:24] LABS: Glucose, Whole Blood 152 mg/dL (60-115)
[2021-01-11 20:26] LABS: Glucose, Whole Blood 208 mg/dL (60-115)
--- NOTE | 2021-01-11 20:47 | CONS_ITS ---
DATE OF SERVICE: 01/11/2021 REFERRING PHYSICIAN: Ernesto Morales MD REASON FOR CONSULTATION: Abnormal CT scan of the pancreas and duodenum. HISTORY OF PRESENT ILLNESS: The patient is a pleasant 75-year-old woman, who was admitted to the hospital on January 09, after presenting to the emergency room with complaints of abdominal pain, nausea, and vomiting. Symptoms began approximately 2 days prior to admission when she had epigastric pain with associated nausea and nonbloody vomiting. She also had fevers and was evaluated in the emergency department, where she was noted to have pancytopenia with an ANC of 500 and was febrile to 101.8. CT scanning of the abdomen and pelvis was obtained, which is reviewed. This is interpreted as showing subtle hypodensity involving the distal part of the body and tail of the pancreas consistent with mild interstitial pancreatitis. The cystic lesion could not be excluded and followup nonemergent MRI was recommended. There was also noted to be persistent nonspecific mural thickening involving the pylorus and endoscopy was recommended. The patient denies any prior history of peptic ulcer disease. She did undergo previous evaluation with colonoscopy, but does not recall having had an upper endoscopy. She has been treated with omeprazole and is tolerating a diet. Her lipase on admission was normal and she was hospitalized earlier in the year with pancreatitis that was thought secondary to hypercalcemia and her underlying multiple myeloma. PAST MEDICAL HISTORY: 1. COVID-19 infection. 2. Multiple myeloma/pancytopenia. 3. Diabetes mellitus. 4. Hyperlipidemia. 5. Hypertension. 6. Hypothyroidism. CURRENT MEDICATIONS: Her current medication list is reviewed in the chart. ALLERGIES: MULTIPLE MEDICATION ALLERGIES ARE REVIEWED. FAMILY HISTORY: Negative for pancreatitis. SOCIAL HISTORY: There is no tobacco and alcohol use. She formally worked at [employer]. REVIEW OF SYSTEMS: SKIN: No pruritus. HEENT: Negative. CARDIOPULMONARY: She denies shortness of breath or chest pain. GASTROINTESTINAL: As above. GENITOURINARY: Negative. NEURO/PSYCHIATRIC: Negative. PHYSICAL EXAMINATION: GENERAL: Shows a pleasant female, in no acute distress. VITAL SIGNS: Reviewed in the electronic medical record and are stable. SKIN: Anicteric. HEENT: No scleral icterus. NECK: Without lymphadenopathy or thyromegaly. LUNGS: Clear. HEART: Regular rate and rhythm. S1, S2. No murmur. ABDOMEN: Soft without focal masses or tenderness. Bowel sounds are present. No organomegaly is noted. EXTREMITIES: Show edema. LABORATORY DATA: Reviewed. Her lipase being normal on admission, argues against this being an episode of acute pancreatitis and the changes seen on the CT scan may simply be residual from her episode in September. I would recommend obtaining MRI imaging electively as noted in the CT scan report. She is tolerating a diet and does not appear to have any acid peptic type symptoms at this time. I would recommend continuing a proton pump inhibitor as you are doing and I did discuss with her undergoing elective endoscopy when her present condition has improved. This can be arranged as an outpatient once she is discharged. Thanks for asking me to see her. I will follow her in the hospital with you. MD DAVID Ewing/DC / [id number]
[2021-01-11 23:31] VITALS: BP 114/65; PULSE 88; RESP 18; TEMP 36; O2SAT 100
[2021-01-12] MEDS: Omeprazole 20 MG CAPSULE.DR PO (06:00)
[2021-01-12 06:35] LABS: Hematocrit 22.3 % (37-47); Hemoglobin 7.3 g/dl (12.0-16.0); Mean Corpuscular HGB Conc 32.7 g/dl (31.0-35.0); Mean Corpuscular Hemoglobin 34.1 pg (27.0-33.0); Mean Corpuscular Volume 104.2 fL (80-98); Mean Platelet Volume 11.4 fL (9.4-12.3); Red Blood Count 2.14 X10*6/uL (4.20-5.50); Red Cell Distribution Width 17.3 % (11.0-16.0)
[2021-01-12 06:49] LABS: Anion Gap 5 (12-20); Blood Urea Nitrogen 14 mg/dL (9-16); Calcium 6.5 mg/dL (8.4-10.2); Carbon Dioxide 21 mmol/L (22-29); Chloride 117 mmol/L (96-108); Creatinine Clr Calc Pharmacy 83.8; Estimated Glomerular Filt Rate > 60; Glucose Fasting 114 mg/dL (60-99); Potassium 3.1 mmol/L (3.3-5.1); Sodium 140 mmol/L (135-145)
[2021-01-12 07:30] VITALS: BP 123/60; PULSE 80; RESP 16; TEMP 36.4; O2SAT 99
[2021-01-12 07:37] LABS: Glucose, Whole Blood 119 mg/dL (60-115)
[2021-01-12 08:38] LABS: Platelet Count 42 X10*3/uL (160-400); White Blood Count 0.8 X10*3/uL (4.8-10.8)
[2021-01-12 08:47] VITALS: BP 123/60; PULSE 80
[2021-01-12] MEDS: Magnesium Oxide 400 MG TABLET PO (08:47)
[2021-01-12] MEDS: 0.9 % Sodium Chloride Flush 3 ML SYRINGE IVFLUSH ×2 (08:47→15:16)
[2021-01-12] MEDS: Spironolactone 25 MG TABLET 50 MG PO (08:47)
[2021-01-12] MEDS: Metoclopramide HCl 5 MG TABLET PO ×2 (08:47→10:28)
[2021-01-12] MEDS: Acyclovir 200 MG CAPSULE 400 MG PO (08:47)
[2021-01-12] MEDS: Atovaquone 750 MG/5 ML ORAL.SUSP 1500 MG PO (08:47)
--- NOTE | 2021-01-12 09:28 | PM.DS ---
DS: Providers Provider Date of Service: 01/12/21 Date of admission: 01/09/21 15:53 Primary care physician: Iveth Cowart MD Consults: 01/09/21 19:19 Consult to Gastroenterology Routine Consulting Provider: Naeem Olivo Reason for consultation: peristent pancreatitis, mural thickening involving pylorus Consult to Hematology / Oncology Routine Consulting Provider: Carissa Raman Reason for consultation: neutropenic fever, MM Consult to Infectious Diseases Routine Consulting Provider: Elvia Alvarez Reason for consultation: neutropenic fever DS: Diagnosis Discharge Diagnosis (1) Neutropenic fever: Status: Acute (2) Streptococcal pneumonia: Status: Acute (3) Severe sepsis: Status: Acute DS: Medications Discharge Medications Home Medications: Home Medications Medication Instructions Recorded Confirmed aspirin 81 mg chewable tablet 81 mg PO DAILY 04/22/20 01/09/21 docusate sodium 100 mg capsule 100 mg PO BID PRN 04/22/20 01/09/21 insulin aspart U-100 100 unit/mL 2 - 12 unit SUBCUT TID 04/22/20 01/09/21 (3 mL) subcutaneous pen omeprazole 20 mg capsule,delayed 20 mg PO BID 04/22/20 01/09/21 release polyethylene glycol 3350 [Miralax] 17 g PO DAILY PRN 10/06/20 01/09/21 sennosides [senna] 8.6 mg PO BEDTIME PRN 10/09/20 01/09/21 spironolactone 50 mg PO DAILY 01/05/21 01/09/21 Previous Rx's Medication Instructions Recorded acyclovir 400 mg PO DAILY #90 tab 10/26/20 ondansetron HCl [Zofran] 8 mg PO Q8H PRN #50 tab 10/26/20 atovaquone [Mepron] 1,500 mg PO DAILY #300 ml 10/29/20 metoclopramide HCl [Reglan] 5 mg PO TIDAC #30 tab 11/09/20 magnesium oxide 400 mg PO BIDPC #60 tab 11/26/20 potassium chloride 20 meq PO BID #60 tab 01/05/21 Revlimid 15 mg PO DAILY #21 cap 01/08/21 cefuroxime axetil 500 mg PO Q12H #22 tab 01/12/21 DS: Summary Hospital Course Hospital Course: patient was admitted for severe sepsis in the setting of neutropenia due to chemotherapy for multiple myeloma. she was empiriccally treated with vancomycin and cefepime, cultures then grew out strep pneumonia, she was deescalated to ceftriaxone, and on discharge will have 11 more days of po ceftin. her sepsis resolved and she is feeling much better, tolerating diet. her WBC was still low at discharge, 0.83, she was given TBO-filgastrim prior to discharge along with 1 unit prbc, she will follow up with hematology. on her initial CT abdomen it showed Persistent subtle hypodensity involving the distal part of the body and tail of the pancreas consistent with mild interstitial pancreatitis. Possibility of cystic lesion in this region is not excluded. Follow-up nonemergent MRI per pancreatic mass protocol with and without contrast may be considered for further clarification. she was seen by GI who felt this was unlikely to be pancreatitis given rapid recovery and normal lipase. MRI to be done as outpatient, as well as possible EGD. Time Spent with Patient Time attestation: Total time spent providing and/or coordinating discharge services: Discharge coordination time: Greater than 30 minutes Quality: Stroke Does the patient have a stroke diagnosis?: No Physical Exam Vital Signs: Vital Signs: Last Vital Signs Temp 97.6 F 01/12/21 07:30 Pulse 80 01/12/21 08:47 Resp 16 01/12/21 07:30 BP 123/60 01/12/21 08:47 Pulse Ox 99 01/12/21 07:30 Body Mass Index 38.7 General: AO X 3, no acute distress Resp: CTA bilateral CVS: S1,S2,RRR GI: soft, non tender, non distended Neuro: motor grossly intact Psych: appropriate affect DS: Data Data Completed and Pending Completed studies during hospitalization [Text1]: Procedures Extraction of Iliac Bone Marrow, Percutaneous Approach, Diagnostic (10/09/20) Transfusion of Nonautologous Red Blood Cells into Peripheral Vein, Percutaneous Approach (11/24/20) Labs on day of discharge: Laboratory Results - last 24 hr 01/11/21 01/11/21 01/11/21 11:09 16:16 20:19 WBC RBC Hgb Hct MCV MCH MCHC RDW Plt Count MPV Absolute Nucleated RBC Nucleated RBC % (auto) Sodium Potassium Chloride Carbon Dioxide Anion Gap BUN Creatinine Estim Creat Clear Calc Estimated GFR POC Glucose 163 H 152 H 208 H Fasting Glucose Calcium 01/12/21 01/12/21 01/12/21 05:47 05:47 07:31 WBC 0.8 L* RBC 2.14 L Hgb 7.3 L Hct 22.3 L MCV 104.2 H MCH 34.1 H MCHC 32.7 RDW 17.3 H Plt Count 42 L MPV 11.4 Absolute Nucleated RBC 0.000 Nucleated RBC % (auto) 0.0 Sodium 140 Potassium 3.1 L Chloride 117 H Carbon Dioxide 21 L Anion Gap 5 L BUN 14 Creatinine 0.71 Estim Creat Clear Calc 83.8 Estimated GFR > 60 POC Glucose 119 H Fasting Glucose 114 H Calcium 6.5 L Discharge Plan Discharge Patient Disposition: Home, Self-Care Discharge Diagnosis: neutropenic sepsis - strep pneumonia Referrals: Iveth Cowart MD [Primary Care Provider] - 1 Week Discharge Medications: New cefuroxime axetil 500 mg tablet 500 mg PO Q12H Qty: 22 RF: 0 Continued ondansetron HCl [Zofran] 4 mg Tablet 8 mg PO Q8H PRN (Reason: Nausea And Vomiting) Qty: 50 RF: 4 acyclovir 400 mg Tablet 400 mg PO DAILY Qty: 90 RF: 4 magnesium oxide 400 mg (241.3 mg magnesium) Tablet 400 mg PO BIDPC Qty: 60 RF: 0 polyethylene glycol 3350 [Miralax] 17 gram/dose Powder 17 g PO DAILY PRN (Reason: Constipation) RF: 0 spironolactone 50 mg Tablet 50 mg PO DAILY RF: 0 potassium chloride 20 mEq Tablet Extended Release 20 meq PO BID Qty: 60 RF: 3 Revlimid 15 mg Capsule 15 mg PO DAILY Qty: 21 RF: 11 sennosides [senna] 8.6 mg Tablet 8.6 mg PO BEDTIME PRN (Reason: Constipation) RF: 0 atovaquone [Mepron] 750 mg/5 mL Suspension 1,500 mg PO DAILY Qty: 300 RF: 6 metoclopramide HCl [Reglan] 5 mg tablet 5 mg PO TIDAC Qty: 30 RF: 0 aspirin 81 mg tablet,chewable 81 mg PO DAILY RF: 0 docusate sodium 100 mg capsule 100 mg PO BID PRN (Reason: Constipation) RF: 0 insulin aspart U-100 100 unit/mL (3 mL) insulin pen 2 - 12 unit subcut TID RF: 0 omeprazole 20 mg capsule,delayed release(DR/EC) 20 mg PO BID RF: 0 Diet: advance to usual diet Activity on Discharge: As tolerated Stand Alone Forms: Patient Portal Discharge page Care Plan Goals: recovery Health Concerns: strep pneumonia infection, neutropenia Plan of Treatment: complete 2 weeks of antibiotics with ceftin, follow up with hematology Assessment: see above
[2021-01-12] MEDS: Potassium Chloride ER 20 MEQ TAB.ER.PRT 40 MEQ PO (10:28)
[2021-01-12 11:15] VITALS: BP 106/63; PULSE 83; PULSE 85; RESP 17; RESP 18; TEMP 36.4; O2SAT 97
[2021-01-12 11:23] LABS: Glucose, Whole Blood 164 mg/dL (60-115)
[2021-01-12 11:31] VITALS: BP 112/62; PULSE 80; RESP 18; TEMP 36.4
[2021-01-12] MEDS: Insulin Lispro 100 UNIT/ML 3 ML VIAL SUBCUT (11:37)
[2021-01-12 14:18] VITALS: BP 130/59; PULSE 89; RESP 18; TEMP 36.6
[2021-01-12] MEDS: cefTRIAXone sodium 1 GM in 0.9 % Sodium Chloride 50 ML IV (14:26)
[2021-01-12 14:45] VITALS: BP 118/57; PULSE 86; RESP 16; TEMP 36.6; O2SAT 97
[2021-01-12] MEDS: Heparin Sodium,Porcine Flush 50 UNITS/5 ML SYRINGE IVFLUSH (15:16)
== END 2021-01-12 17:25 | disposition home or self-care (01) | DRG 720 ==
LOC: HO.ED 14:35 → HO.EDOVER 16:20 → HO.S3 01-10 11:19
PROVIDERS: Nurse Practitioner Family; Admitting Provider Internal Medicine; Emergency Provider Emergency Medicine; PCP Internal Medicine; Visit Provider Internal Medicine
DX: A40.3 Sepsis due to Streptococcus pneumoniae (principal); R65.20 Severe sepsis without septic shock; D61.818 Other pancytopenia; J13 Pneumonia due to Streptococcus pneumoniae; C90.00 Multiple myeloma not having achieved remission; D70.1 Agranulocytosis secondary to cancer chemotherapy; K86.1 Other chronic pancreatitis; E03.9 Hypothyroidism, unspecified; E11.9 Type 2 diabetes mellitus without complications; E83.42 Hypomagnesemia; E87.6 Hypokalemia; Z20.822 Contact with and (suspected) exposure to COVID-19; Z86.16 Personal history of COVID-19; Z79.4 Long term (current) use of insulin; Z88.2 Allergy status to sulfonamides; Z88.5 Allergy status to narcotic agent; Z79.82 Long term (current) use of aspirin; Z79.899 Other long term (current) drug therapy; Z66 Do not resuscitate; R50.81 Fever presenting with conditions classified elsewhere; T45.1X5A Adverse effect of antineoplastic and immunosuppressive drugs, initial encounter; Y92.9 Unspecified place or not applicable
CPT/HCPCS: 0241U; 36415; 71045; 74177; 80048; 80076; 81001; 82947; 83605; 83690; 83735; 83880; 84484; 85007; 85025; 85027; 85610; 85730; 86850; 86900; 86901; 86923; 87040; 87147; 87186; 87205; 93005; 99285; J0692; J0696; J1200; J1447; J1642; J2270; J2765; J3370; J3475; P9016; Q9967

== ENCOUNTER 2021-02-15 10:45 | Emergency (ER) | payer OTHER, SELFPAY ==
--- NOTE | ~2021-02-15 | US_ITS ---
EXAMINATION: US VENOUS ULTRASOUND WITH DOPPLER LOWER EXTREMITY, RIGHT CLINICAL INFORMATION: Swelling. Rule out DVT. COMPARISON: None TECHNIQUE: Ultrasound of the deep veins is performed from the hip to the calf with compression sonography and color and pulse Doppler assessment. Spectral analysis with color-flow imaging is performed. FINDINGS: There is normal venous compression and respiratory variation and augmented flow. The visualized common femoral vein, superficial femoral vein, profunda femoral vein, popliteal vein, and the posterior tibial vein shows no evidence of deep venous thrombosis. The peroneal vein is not well visualized. There is a 5.8 x 1.6 cm Hernandez's cyst. Images of the contralateral left common femoral vein demonstrated chronic-appearing thrombus similar to September 2020 exam. US/US venous duplex LE RT IMPRESSION: No DVT demonstrated in the right lower extremity. Right peroneal vein is not well visualized. 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
--- NOTE | ~2021-02-15 | XR_ITS ---
EXAMINATION: XR FOOT, RIGHT CLINICAL INFORMATION: Right foot pain COMPARISON: None TECHNIQUE: AP, lateral, and oblique views of the right foot. FINDINGS: There is a small to moderate-sized calcaneal heel and and mild dorsal intertarsal spurring. There is mild mid to foot soft tissue swelling. No visible acute fracture, dislocation or lytic process seen. XR/XR foot RT 2V IMPRESSION: Moderate dorsal mid foot soft tissue swelling without underlying fracture. Small calcaneal heel and dorsal intertarsal spurring.
[2021-02-15 12:01] VITALS: BP 113/68; PULSE 100; RESP 18; TEMP 36.8; O2SAT 97; BMI 38.1
--- NOTE | 2021-02-15 13:51 | ED.LOWEXIN ---
HPI - Extremity Injury (Lower) General Chief Complaint: Extremity Injury, Lower Stated Complaint: trouble walking Time Seen by Provider: 02/15/21 13:50 Source: patient and family (daughter) Mode of arrival: ambulatory Limitations: no limitations History of Present Illness HPI Narrative: 75-year-old female came in for evaluation of her right lower extremity is worsening of swelling, and right foot injury with swelling and tenderness. Patient dropped a portable toilet plastic seat on her right foot 3 days ago, right foot swelling and becoming black and blue, patient also noted increased swelling in the right calf. No redness, no redness, patient ambulating with difficulty due to pain. Patient having chronic bilateral lower extremities edema. Related Data Home Medications Medication Instructions Recorded Confirmed aspirin 81 mg chewable tablet 81 mg PO DAILY 04/22/20 02/09/21 docusate sodium 100 mg capsule 100 mg PO BID PRN 04/22/20 02/09/21 insulin aspart U-100 100 unit/mL 2 - 12 unit SUBCUT TID 04/22/20 02/09/21 (3 mL) subcutaneous pen omeprazole 20 mg capsule,delayed 20 mg PO BID 04/22/20 02/09/21 release polyethylene glycol 3350 17 17 g PO DAILY PRN 10/06/20 02/09/21 gram/dose oral powder (Miralax) sennosides 8.6 mg tablet (senna) 8.6 mg PO BEDTIME PRN 10/09/20 02/09/21 spironolactone 50 mg tablet 50 mg PO DAILY 01/05/21 02/09/21 calcium carbonate 500 mg (1,250 1 tab PO BID 02/02/21 02/09/21 mg)-vitamin D3 125 unit tablet Previous Rx's Medication Instructions Recorded acyclovir 400 mg tablet 400 mg PO DAILY #90 tab 10/26/20 ondansetron HCl 4 mg tablet 8 mg PO Q8H PRN #50 tab 10/26/20 (Zofran) atovaquone 750 mg/5 mL oral 1,500 mg PO DAILY #300 ml 10/29/20 suspension (Mepron) metoclopramide HCl 5 mg tablet 5 mg PO TIDAC #30 tab 11/09/20 (Reglan) magnesium oxide 400 mg (241.3 mg 400 mg PO BIDPC #60 tab 11/26/20 magnesium) tablet potassium chloride 20 mEq 20 meq PO BID #60 tab 01/05/21 tablet,extended release butenafine 1 % topical cream 1 appl TOPICAL BID #45 g 01/26/21 (Lotrimin Ultra) lenalidomide 15 mg capsule 15 mg PO DAILY #21 cap 02/08/21 (Revlimid) ibuprofen 200 mg tablet 400 mg PO Q8H PRN #30 tab 02/15/21 Allergies Allergy/AdvReac Type Severity Reaction Status Date / Time codeine [CODEINE] Allergy Intermediate NAUSEA & Verified 01/10/21 12:51 VOMITING, vomiting lisinopril [LISINOPRIL] Allergy Intermediate COUGH, Verified 01/10/21 12:51 Coughing sulfamethoxazole Allergy Intermediate RASH Verified 01/10/21 12:51 [From BACTRIM] Review of Systems Review of Systems: All other systems are reviewed and are negative Constitutional: Reports as per HPI and Reports no additional constitutional complaints Eyes: Reports as per HPI and Reports no additional eye complaints Reports system reviewed and no additional complaints, except as documented Cardiovascular: Reports as per HPI and Reports no additional cardiovascular complaints Respiratory: Reports as per HPI and Reports no additional respiratory complaints Gastrointestinal: Reports as per HPI and Reports no additional gastrointestinal complaints Genitourinary: Reports no additional female genitourinary complaints Musculoskeletal: Reports no additional musculoskeletal complaints Skin/Breast: Reports system reviewed and no additional complaints, except as docu Psychiatric: Reports no additional psychiatric complaints Endocrine: Reports no additional endocrine complaints Hematologic/Lymphatic: Reports no additional hematologic/lymphatic complaints Allergic/Immunologic: Reports no additional allergic/immunologic complaints Reports system reviewed and no additional complaints, except as documented and Reports Abnormal speech present [facility] Past Medical History Medical History Diabetes mellitus type 2, controlled, without complications Essential hypertension Hypercalcemia Hyperlipidemia, unspecified Hypoglycemia unawareness associated with type 2 diabetes mellitus Obstructive sleep apnea Pancytopenia Streptococcal pneumonia Subclinical hyperthyroidism Surgical History History of knee replacement History of left hip replacement Family History Family History Father No problems noted. Mother Heart disease Brother Atrial fibrillation Brother Atrial fibrillation Brother Atrial fibrillation Social History Social History Household Members: Family Household Members Other:: 3 Housing: House Do you presently have visiting nurse or other home services: No Alcohol intake: never Patient Tobacco Use Status: Never used Tobacco Use of substances other than those prescribed or required for medical reasons: No Advance Directives: Yes Advance Directives on File: Yes Advance Directives Date on File: 10/09/20 service: No Current occupational status: disabled Physical Exam Vital Signs: Vital Signs: Last Vital Signs Temp 98.3 F 02/15/21 12:01 Pulse 100 02/15/21 12:01 Resp 18 02/15/21 12:01 BP 113/68 02/15/21 12:01 Pulse Ox 97 02/15/21 12:01 Body Mass Index 38.1 Vital signs have been reviewed as appeared to be correct. Blood pressure normal. Heart rate normal. Respiration rate normal. Temperature normal. Oxygen saturation normal. Appearance: Alert. Oriented X3. No acute distress. Head: Normal external exam. Normocephalic. Atraumatic. No Galaviz signs noted. No raccoon eyes noted Eyes: PERRLA. EOMI. Conjunctiva and sclera normal. Eyelids normal. ENT: TM's Normal. Pharynx normal. Uvula midline. Moist mucous membranes. No trismus noted. No drooling noted. No muffled voice noted. Neck: Normal inspection. Neck supple. FROM. No adenopathy. Thyroid Normal. No meningeal signs. No neck mass noted. CVS: Normal heart rate and rhythm. Heart sound normal. No murmurs noted. Pulses normal throughout. Respiratory: No respiratory distress. Painless inspiration. Breath sounds normal. No wheezes/rales/rhonchi noted. Chest nontender. No accessory muscle usage noted or decreased air movement noted. Abdomen: Soft and nontender. Bowel sounds normal in all 4 quadrants. No distention noted. No organomegaly noted. No visible injury noted. Back: No CVA tenderness. Full range of motion noted. Skin: Skin warm and dry. Normal skin color. Normal skin turgor. No rashes/lesions/lacerations noted. Extremities: Right lower extremity edema, with tenderness over her right calf. Extremities exhibit normal range of motion. Extremities nontender. Neuro: Oriented X 3. No motor deficit. No sensory deficit. Reflexes normal. Course Course Course Narrative: Assessment and plan. 75-year-old female came in for evaluation of her right foot injury after she dropped a plastic toilet seat on her right foot 3 4 days ago, x-ray showed no fracture, because the increased swelling and right lower extremities and calf tenderness patient had ultrasound of right lower extremities which showed no DVT. MDM - Extremity Injury (Lower) Imaging Data Right foot x-ray: Radiologist's impression: Moderate dorsal mid foot soft tissue swelling without underlying fracture. ? Small calcaneal heel and dorsal intertarsal spurring. Right lower extremities ultrasound: Radiologist's impression: no DVT demonstrated in the right lower extremity. Right peroneal vein is not well visualized. 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 Discharge Plan Discharge Clinical Impression: Contusion of foot, right, Edema of right lower extremity Patient Disposition: Home, Self-Care Instructions: Foot Contusion (ED) Prescriptions: New ibuprofen 200 mg tablet 400 mg PO Q8H PRN (Reason: pain) Qty: 30 RF: 0 No Action ondansetron HCl [Zofran] 4 mg Tablet 8 mg PO Q8H PRN (Reason: Nausea And Vomiting) Qty: 50 RF: 4 acyclovir 400 mg Tablet 400 mg PO DAILY Qty: 90 RF: 4 magnesium oxide 400 mg (241.3 mg magnesium) Tablet 400 mg PO BIDPC Qty: 60 RF: 0 polyethylene glycol 3350 [Miralax] 17 gram/dose Powder 17 g PO DAILY PRN (Reason: Constipation) RF: 0 spironolactone 50 mg Tablet 50 mg PO DAILY RF: 0 potassium chloride 20 mEq Tablet Extended Release 20 meq PO BID Qty: 60 RF: 3 butenafine [Lotrimin Ultra] 1 % Cream 1 appl TOPICAL BID Qty: 45 RF: 4 calcium carbonate-vitamin D3 [Calcium 500 + D (D3)] 500 mg(1,250mg) -125 unit Tablet 1 tab PO BID RF: 0 Revlimid 15 mg Capsule 15 mg PO DAILY Qty: 21 RF: 11 sennosides [senna] 8.6 mg Tablet 8.6 mg PO BEDTIME PRN (Reason: Constipation) RF: 0 atovaquone [Mepron] 750 mg/5 mL Suspension 1,500 mg PO DAILY Qty: 300 RF: 6 metoclopramide HCl [Reglan] 5 mg tablet 5 mg PO TIDAC Qty: 30 RF: 0 aspirin 81 mg tablet,chewable 81 mg PO DAILY RF: 0 docusate sodium 100 mg capsule 100 mg PO BID PRN (Reason: Constipation) RF: 0 insulin aspart U-100 100 unit/mL (3 mL) insulin pen 2 - 12 unit subcut TID RF: 0 omeprazole 20 mg capsule,delayed release(DR/EC) 20 mg PO BID RF: 0 Referrals: Physician,Unknown [Physician] - 2 days
== END 2021-02-15 15:52 | disposition home or self-care (01) ==
PROVIDERS: Emergency Provider Emergency Medicine; PCP Internal Medicine
DX: R60.0 Localized edema (principal); S90.31XA Contusion of right foot, initial encounter; W20.8XXA Other cause of strike by thrown, projected or falling object, initial encounter; M79.671 Pain in right foot; I10 Essential (primary) hypertension; E11.9 Type 2 diabetes mellitus without complications; Y93.9 Activity, unspecified; Y92.9 Unspecified place or not applicable; Y99.9 Unspecified external cause status; Z79.4 Long term (current) use of insulin; Z79.899 Other long term (current) drug therapy; Z79.82 Long term (current) use of aspirin
CPT/HCPCS: 73620; 93971; 99284

== ENCOUNTER 2021-02-22 14:05 | Inpatient (IN) | payer OTHER, SELFPAY ==
[2021-02-22] VITALS (8 sets, daily range): BP systolic 96–132; BP diastolic 35–94; PULSE 58–107; RESP 18–22; TEMP 36.9–37.4; O2SAT 96–100; BMI 38.1
--- NOTE | ~2021-02-22 | XR_ITS ---
EXAMINATION: XR CHEST CLINICAL INFORMATION: Fever COMPARISON: Chest radiographs 01/09/2021, 11/24/2020 TECHNIQUE: Frontal view of the chest was obtained. FINDINGS: There is a right internal jugular tunneled port with tip at mid superior vena cava similar to prior exam. The lungs are clear. There is no airspace consolidation or groundglass opacity. No effusion. The heart is normal in size. The hilar and mediastinal contours are normal. There are degenerative changes thoracic spine. XR/XR chest 1V IMPRESSION: No acute intrathoracic disease. Lungs clear.
--- NOTE | 2021-02-22 14:40 | ECG_ITS ---
Test Reason : FEVER Blood Pressure : / mmHG Vent. Rate : 108 BPM Atrial Rate : 108 BPM P-R Int : 134 ms QRS Dur : 064 ms QT Int : 342 ms P-R-T Axes : 005 -16 029 degrees QTc Int : 458 ms Sinus tachycardia with Premature atrial complexes Otherwise normal ECG When compared with ECG of 09-JAN-2021 13:49, No significant change was found Referred By: Junior Anthony Electronically Signed By:BERNIE COKER MD
--- NOTE | 2021-02-22 14:43 | ED_ITS ---
HPI - General Adult General Chief complaint: General Medical <Junior Anthony MD - Last Filed: 02/22/21 16:44> Stated complaint: nausea,diarrea,fever.,. pt has cancer <Junior Anthony MD - Last Filed: 02/22/21 16:44> Time Seen by Provider: 02/22/21 14:32 <Junior Anthony MD - Last Filed: 02/22/21 16:44> Source: patient <Junior Anthony MD - Last Filed: 02/22/21 16:44> Mode of arrival: ambulatory <Junior Anthony MD - Last Filed: 02/22/21 16:44> Limitations: no limitations <Junior Anthony MD - Last Filed: 02/22/21 16:44> History of Present Illness HPI narrative: patient fever, 8 day from her last chemo for multiple myeloma. patient with an abdominal rash getting worse. patient with fever at home to 100.5. <Junior Anthony MD - Last Filed: 02/22/21 16:44> Onset (ago): hour(s) <Junior Anthony MD - Last Filed: 02/22/21 16:44> Severity: moderate <Junior Anthony MD - Last Filed: 02/22/21 16:44> Associated symptoms: nausea/vomiting <Junior Anthony MD - Last Filed: 02/22/21 16:44> Related Data Home medications: Home Medications Medication Instructions Recorded Confirmed aspirin 81 mg chewable tablet 81 mg PO DAILY 04/22/20 02/09/21 docusate sodium 100 mg capsule 100 mg PO BID PRN 04/22/20 02/09/21 insulin aspart U-100 100 unit/mL 2 - 12 unit SUBCUT TID 04/22/20 02/09/21 (3 mL) subcutaneous pen omeprazole 20 mg capsule,delayed 20 mg PO BID 04/22/20 02/09/21 release polyethylene glycol 3350 17 17 g PO DAILY PRN 10/06/20 02/09/21 gram/dose oral powder (Miralax) sennosides 8.6 mg tablet (senna) 8.6 mg PO BEDTIME PRN 10/09/20 02/09/21 spironolactone 50 mg tablet 50 mg PO DAILY 01/05/21 02/09/21 calcium carbonate 500 mg (1,250 1 tab PO BID 02/02/21 02/09/21 mg)-vitamin D3 125 unit tablet Previous Rx's Medication Instructions Recorded acyclovir 400 mg tablet 400 mg PO DAILY #90 tab 10/26/20 ondansetron HCl 4 mg tablet 8 mg PO Q8H PRN #50 tab 10/26/20 (Zofran) atovaquone 750 mg/5 mL oral 1,500 mg PO DAILY #300 ml 10/29/20 suspension (Mepron) metoclopramide HCl 5 mg tablet 5 mg PO TIDAC #30 tab 11/09/20 (Reglan) magnesium oxide 400 mg (241.3 mg 400 mg PO BIDPC #60 tab 11/26/20 magnesium) tablet potassium chloride 20 mEq 20 meq PO BID #60 tab 01/05/21 tablet,extended release butenafine 1 % topical cream 1 appl TOPICAL BID #45 g 01/26/21 (Lotrimin Ultra) lenalidomide 15 mg capsule 15 mg PO DAILY #21 cap 02/08/21 (Revlimid) ibuprofen 200 mg tablet 400 mg PO Q8H PRN #30 tab 02/15/21 <Junior Anthony MD - Last Filed: 02/22/21 16:44> Allergies/adverse reactions: Allergies Allergy/AdvReac Type Severity Reaction Status Date / Time codeine [CODEINE] Allergy Intermediate NAUSEA & Verified 02/22/21 14:30 VOMITING, vomiting lisinopril [LISINOPRIL] Allergy Intermediate COUGH, Verified 02/22/21 14:30 Coughing sulfamethoxazole Allergy Intermediate RASH Verified 02/22/21 14:30 [From BACTRIM] <Junior Anthony MD - Last Filed: 02/22/21 16:44> Review of Systems Constitutional: Constitutional: Reports no additional constitutional complaints <Junior Anthony MD - Last Filed: 02/22/21 16:44> Eyes: Eyes: Reports no additional eye complaints <Junior Anthnoy MD - Last Filed: 02/22/21 16:44> ENT: Denies dizziness <Junior Anthony MD - Last Filed: 02/22/21 16:44> Cardiovascular: Cardiovascular: Reports no additional cardiovascular complai nts <Junior Anthony MD - Last Filed: 02/22/21 16:44> Respiratory: Respiratory: Reports as per HPI <Junior Anthony MD - Last Filed: 02/22/21 16:44> Gastrointestinal: Gastrointestinal: Reports no additional gastrointestinal complaints <Junior Anthony MD - Last Filed: 02/22/21 16:44> Genitourinary: Genitourinary: Reports no additional female genitourinary co mplaints <Junior Anthony MD - Last Filed: 02/22/21 16:44> Musculoskeletal: Musculoskeletal: Reports no additional musculoskeletal complaints <Junior Anthony MD - Last Filed: 02/22/21 16:44> Integumentary/Breasts: Skin/Breast: Denies rash <Junior Anthony MD - Last Filed: 02/22/21 16:44> Neurologic: Reports system reviewed and no additional complaints, except as documented, Denies dizziness and Denies Sensory deficit (Neuro) <Junior Anthony MD - Last Filed: 02/22/21 16:44> Psychiatric: Psychiatric: Denies anxiety <Junior Anthony MD - Last Filed: 02/22/21 16:44> [facility] Past Medical History Medical History: Medical History Diabetes mellitus type 2, controlled, without complications Essential hypertension Hypercalcemia Hyperlipidemia, unspecified Hypoglycemia unawareness associated with type 2 diabetes mellitus Obstructive sleep apnea Pancytopenia Streptococcal pneumonia Subclinical hyperthyroidism <Junior Anthony MD - Last Filed: 02/22/21 16:44> Surgical History: Surgical History History of knee replacement History of left hip replacement <Junior Anthony MD - Last Filed: 02/22/21 16:44> Family History Family History: Family History Father No problems noted. Mother Heart disease Brother Atrial fibrillation Brother Atrial fibrillation Brother Atrial fibrillation <Junior Anthony MD - Last Filed: 02/22/21 16:44> Social History Social History: Social History Household Members: Family Household Members Other:: 3 Housing: House Do you presently have visiting nurse or other home services: No Alcohol intake: never Patient Tobacco Use Status: Never used Tobacco Use of substances other than those prescribed or required for medical reasons: No Advance Directives: No Advance Directives Information Provided: No Advance Directives Date on File: 10/09/20 service: No Current occupational status: disabled <Junior Anthony MD - Last Filed: 02/22/21 16:44> Physical Exam Vital Signs: Vital Signs: Last Vital Signs Temp 98.8 F 02/22/21 18:06 Pulse 101 H 02/22/21 18:04 Resp 02/22/21 18:04 BP 102/35 L 02/22/21 18:04 Pulse Ox 99 02/22/21 18:04 Body Mass Index 38.1 <Junior Anthony MD - Last Filed: 02/22/21 16:44> Vital Signs: Last Vital Signs Temp 98.8 F 02/22/21 18:06 Pulse 101 H 02/22/21 18:04 Resp 02/22/21 18:04 BP 102/35 L 02/22/21 18:04 Pulse Ox 99 02/22/21 18:04 Body Mass Index 38.1 <Shaina Hilliard MD - Last Filed: 02/22/21 18:34> Const: Other: elderly female pale <Junior Anthony MD - Last Filed: 02/22/21 16:44> Orientation/consciousness: oriented to person and patient oriented x3 <Junior Anthony MD - Last Filed: 02/22/21 16:44> Limitations: no limitations <Junior Anthony MD - Last Filed: 02/22/21 16:44> HENMT: Head: Yes normal to inspection <Junior Anthony MD - Last Filed: 02/22/21 16:44> Ears: external ears normal <Junior Anthony MD - Last Filed: 02/22/21 16:44> General nose exam: Normal external nose present <Junior Anthony MD - Last Filed: 02/22/21 16:44> Mouth: Normal oral and palatal mucosa present and oropharynx normal <Junior Anthony MD - Last Filed: 02/22/21 16:44> Throat: Yes posterior oropharynx normal <Junior Anthony MD - Last Filed: 02/22/21 16:44> Eyes: General: appearance normal, both eyes and all related structures <Junior Anthony MD - Last Filed: 02/22/21 16:44> Neck: Other: supple <Junior Anthony MD - Last Filed: 02/22/21 16:44> Neck: Yes normal visual inspection <Junior Anthony MD - Last Filed: 02/22/21 16:44> Chest: Chest palpation & inspection: normal inspection of the chest <Junior Anthony MD - Last Filed: 02/22/21 16:44> Resp: Auscultation: clear to auscultation bilaterally <Junior Anthony MD - Last Filed: 02/22/21 16:44> Cardio: Jugular venous distension: no JVD <Junior Anthony MD - Last Filed: 02/22/21 16:44> Rate: regular rate <Junior Anthony MD - Last Filed: 02/22/21 16:44> Rhythm: regular rhythm <Junior Anthony MD - Last Filed: 02/22/21 16:44> Heart sounds: S1 normal heart sound present and S2 normal heart sound present <Junior Anthony MD - Last Filed: 02/22/21 16:44> GI: Inspection: Yes normal to inspection <Junior Anthony MD - Last Filed: 02/22/21 16:44> Palpation (GI): Soft to palpation, nontender and No hepatosplenomegaly present <Junior Anthony MD - Last Filed: 02/22/21 16:44> Auscultation: normal bowel sounds <Junior Anthony MD - Last Filed: 02/22/21 16:44> : General: Yes no CVA tenderness <Junior Anthony MD - Last Filed: 02/22/21 16:44> Back/Spine/Pelvis: Back: no CVA tenderness <Junior Anthony MD - Last Filed: 02/22/21 16:44> Skin: Other: large candidal infection to lower pannus, no evidence of cellulitis <Junior Anthony MD - Last Filed: 02/22/21 16:44> Neuro: General: oriented to person and patient oriented x3 <Junior Anthony MD - Last Filed: 02/22/21 16:44> Cranial nerves: Yes CN's II-XII intact bilaterally <Junior Anthony MD - Last Filed: 02/22/21 16:44> Motor exam (neuro): 5/5 motor strength present throughout <Junior Anthony MD - Last Filed: 02/22/21 16:44> Sensory Exam: No Sensory deficit (Neuro) <Junior Anthony MD - Last Filed: 02/22/21 16:44> Extrem: Other: 3+ edema billaterally <Junior Anthony MD - Last Filed: 02/22/21 16:44> Psych: Appearance: grossly normal <Junior Anthony MD - Last Filed: 02/22/21 16:44> Course Reevaluation(s) Reevaluation #1: so far no evidence on focal infection, patient with candidal rash under pannus. Awaiting differential on WBC of 2.0 before call oncologist. will sign out to Dr. Hilliard <Junior Anthony MD - Last Filed: 02/22/21 16:44> Time: 16:43 <Junior Anthony MD - Last Filed: 02/22/21 16:44> Reevaluation #2: I discussed the patient with Dr. Raman. Patient's blood pressure dropped to the low 80s systolic, patient otherwise is asymptomatic. No vomiting diarrhea or fever in the emergency room. Patient was given a total of 3 L of normal saline and given 2 g of cefepime. We will go ahead and admit the patient. I discussed the patient with Dr. Fowler, patient will be admitted. <Shaina Hilliard MD - Last Filed: 02/22/21 18:34> Medical Decision Making Lab Data Result diagrams: : 02/22/21 15:46 02/22/21 15:46 <Junior Anthony MD - Last Filed: 02/22/21 16:44> Labs: Lab Results 02/22/21 02/22/21 02/22/21 Range/Units 15:38 15:45 15:45 WBC (4.8-10.8) X10*3/uL RBC (4.20-5.50) X10*6/uL Hgb (12.0-16.0) g/dl Hct (37-47) % MCV (80-98) fL MCH (27.0-33.0) pg MCHC (31.0-35.0) g/dl RDW (11.0-16.0) % Plt Count (160-400) X10*3/uL MPV (9.4-12.3) fL Immature Gran % (Auto) Neut % (Auto) Lymph % (Auto) [place] % (Auto) Eos % (Auto) Baso % (Auto) Lymph # (Auto) [place] # (Auto) Eos # (Auto) Baso # (Auto) Abs Immat Gran (auto) Absolute Neuts (auto) Absolute Nucleated RBC (0.0-0.012) X10*3/uL Nucleated RBC % (auto) (0.0-0.2) /100WBC Neutrophils % (Manual) (45-73) % Band Neutrophils % (3-5) % Lymphocytes % (Manual) (20-40) % Monocytes % (Manual) (2-11) % Abs Neuts (Manual) (2.2-7.9) X10*3/uL Lymphocytes # (Manual) (0.6-4.8) X10*3/uL Monocytes # (Manual) (0.0-1.2) X10*3/uL Dohle Bodies Platelet Estimate (NORMAL) Plt Morphology Comment RBC Morphology Polychromasia /OIF [place] Cells /OIF Sodium (135-145) mmol/L Potassium (3.3-5.1) mmol/L Chloride (96-108) mmol/L Carbon Dioxide (22-29) mmol/L Anion Gap (12-20) BUN (9-16) mg/dL Creatinine (0.5-1.4) mg/dL Estim Creat Clear Calc Estimated GFR Random Glucose (60-115) mg/dL Lactic Acid 2.4 H* (0.5-2.0) mmol/L Lactic Acid Fup @ 2Hr (0.5-2.0) mmol/L Calcium (8.4-10.2) mg/dL Total Bilirubin 1.5 H (0.0-1.0) mg/dL Direct Bilirubin 0.5 (0.0-0.5) mg/dL AST 11 (5-31) U/L ALT 17 (0-31) U/L Alkaline Phosphatase 53 (39-117) U/L Troponin I High Sens 13.9 D (<3.5-17.0) ng/L Total Protein 5.7 L (6.5-8.0) g/dL Albumin 1.6 L (3.5-5.0) g/dL Coronavirus (PCR) (Negative) Influenza Type A (PCR) (Negative) Influenza Type B (PCR) (Negative) RSV RNA Qual (PCR) (Negative) 02/22/21 02/22/21 02/22/21 Range/Units 15:45 15:46 15:46 WBC 2.0 L (4.8-10.8) X10*3/uL RBC 2.51 L (4.20-5.50) X10*6/uL Hgb 8.6 L (12.0-16.0) g/dl Hct 26.3 L (37-47) % MCV 104.8 H (80-98) fL MCH 34.3 H (27.0-33.0) pg MCHC 32.7 (31.0-35.0) g/dl RDW 16.4 H (11.0-16.0) % Plt Count 82 L (160-400) X10*3/uL MPV 12.3 (9.4-12.3) fL Immature Gran % (Auto) Cancelled Neut % (Auto) Cancelled Lymph % (Auto) Cancelled [place] % (Auto) Cancelled Eos % (Auto) Cancelled Baso % (Auto) Cancelled Lymph # (Auto) Cancelled [place] # (Auto) Cancelled Eos # (Auto) Cancelled Baso # (Auto) Cancelled Abs Immat Gran (auto) Cancelled Absolute Neuts (auto) Cancelled Absolute Nucleated RBC 0.000 (0.0-0.012) X10*3/uL Nucleated RBC % (auto) 0.0 (0.0-0.2) /100WBC Neutrophils % (Manual) 67 (45-73) % Band Neutrophils % 7 H (3-5) % Lymphocytes % (Manual) 22 (20-40) % Monocytes % (Manual) 4 (2-11) % Abs Neuts (Manual) 1.5 L (2.2-7.9) X10*3/uL Lymphocytes # (Manual) 0.4 L (0.6-4.8) X10*3/uL Monocytes # (Manual) 0.1 (0.0-1.2) X10*3/uL Dohle Bodies PRESENT Platelet Estimate DECREASED (NORMAL) Plt Morphology Comment NORMAL RBC Morphology NOTED Polychromasia 1+ (0-2) /OIF [place] Cells 1+ (0-2) /OIF Sodium 136 (135-145) mmol/L Potassium 4.0 (3.3-5.1) mmol/L Chloride 112 H (96-108) mmol/L Carbon Dioxide 20 L (22-29) mmol/L Anion Gap 8 L (12-20) BUN 11 (9-16) mg/dL Creatinine 0.98 (0.5-1.4) mg/dL Estim Creat Clear Calc 60.2 Estimated GFR 55 Random Glucose 154 H D (60-115) mg/dL Lactic Acid (0.5-2.0) mmol/L Lactic Acid Fup @ 2Hr (0.5-2.0) mmol/L Calcium 6.7 L (8.4-10.2) mg/dL Total Bilirubin (0.0-1.0) mg/dL Direct Bilirubin (0.0-0.5) mg/dL AST (5-31) U/L ALT (0-31) U/L Alkaline Phosphatase (39-117) U/L Troponin I High Sens (<3.5-17.0) ng/L Total Protein (6.5-8.0) g/dL Albumin (3.5-5.0) g/dL Coronavirus (PCR) NEGATIVE (Negative) Influenza Type A (PCR) NEGATIVE (Negative) Influenza Type B (PCR) NEGATIVE (Negative) RSV RNA Qual (PCR) NEGATIVE (Negative) 02/22/21 Range/Units 17:58 WBC (4.8-10.8) X10*3/uL RBC (4.20-5.50) X10*6/uL Hgb (12.0-16.0) g/dl Hct (37-47) % MCV (80-98) fL MCH (27.0-33.0) pg MCHC (31.0-35.0) g/dl RDW (11.0-16.0) % Plt Count (160-400) X10*3/uL MPV (9.4-12.3) fL Immature Gran % (Auto) Neut % (Auto) Lymph % (Auto) [place] % (Auto) Eos % (Auto) Baso % (Auto) Lymph # (Auto) [place] # (Auto) Eos # (Auto) Baso # (Auto) Abs Immat Gran (auto) Absolute Neuts (auto) Absolute Nucleated RBC (0.0-0.012) X10*3/uL Nucleated RBC % (auto) (0.0-0.2) /100WBC Neutrophils % (Manual) (45-73) % Band Neutrophils % (3-5) % Lymphocytes % (Manual) (20-40) % Monocytes % (Manual) (2-11) % Abs Neuts (Manual) (2.2-7.9) X10*3/uL Lymphocytes # (Manual) (0.6-4.8) X10*3/uL Monocytes # (Manual) (0.0-1.2) X10*3/uL Dohle Bodies Platelet Estimate (NORMAL) Plt Morphology Comment RBC Morphology Polychromasia /OIF [place] Cells /OIF Sodium (135-145) mmol/L Potassium (3.3-5.1) mmol/L Chloride (96-108) mmol/L Carbon Dioxide (22-29) mmol/L Anion Gap (12-20) BUN (9-16) mg/dL Creatinine (0.5-1.4) mg/dL Estim Creat Clear Calc Estimated GFR Random Glucose (60-115) mg/dL Lactic Acid (0.5-2.0) mmol/L Lactic Acid Fup @ 2Hr 1.6 (0.5-2.0) mmol/L Calcium (8.4-10.2) mg/dL Total Bilirubin (0.0-1.0) mg/dL Direct Bilirubin (0.0-0.5) mg/dL AST (5-31) U/L ALT (0-31) U/L Alkaline Phosphatase (39-117) U/L Troponin I High Sens (<3.5-17.0) ng/L Total Protein (6.5-8.0) g/dL Albumin (3.5-5.0) g/dL Coronavirus (PCR) (Negative) Influenza Type A (PCR) (Negative) Influenza Type B (PCR) (Negative) RSV RNA Qual (PCR) (Negative) <Junior Anthony MD - Last Filed: 02/22/21 16:44> Lab Results 02/22/21 02/22/21 02/22/21 Range/Units 15:38 15:45 15:45 WBC (4.8-10.8) X10*3/uL RBC (4.20-5.50) X10*6/uL Hgb (12.0-16.0) g/dl Hct (37-47) % MCV (80-98) fL MCH (27.0-33.0) pg MCHC (31.0-35.0) g/dl RDW (11.0-16.0) % Plt Count (160-400) X10*3/uL MPV (9.4-12.3) fL Immature Gran % (Auto) Neut % (Auto) Lymph % (Auto) [place] % (Auto) Eos % (Auto) Baso % (Auto) Lymph # (Auto) [place] # (Auto) Eos # (Auto) Baso # (Auto) Abs Immat Gran (auto) Absolute Neuts (auto) Absolute Nucleated RBC (0.0-0.012) X10*3/uL Nucleated RBC % (auto) (0.0-0.2) /100WBC Neutrophils % (Manual) (45-73) % Band Neutrophils % (3-5) % Lymphocytes % (Manual) (20-40) % Monocytes % (Manual) (2-11) % Abs Neuts (Manual) (2.2-7.9) X10*3/uL Lymphocytes # (Manual) (0.6-4.8) X10*3/uL Monocytes # (Manual) (0.0-1.2) X10*3/uL Dohle Bodies Platelet Estimate (NORMAL) Plt Morphology Comment RBC Morphology Polychromasia /OIF [place] Cells /OIF Sodium (135-145) mmol/L Potassium (3.3-5.1) mmol/L Chloride (96-108) mmol/L Carbon Dioxide (22-29) mmol/L Anion Gap (12-20) BUN (9-16) mg/dL Creatinine (0.5-1.4) mg/dL Estim Creat Clear Calc Estimated GFR Random Glucose (60-115) mg/dL Lactic Acid 2.4 H* (0.5-2.0) mmol/L Lactic Acid Fup @ 2Hr (0.5-2.0) mmol/L Calcium (8.4-10.2) mg/dL Total Bilirubin 1.5 H (0.0-1.0) mg/dL Direct Bilirubin 0.5 (0.0-0.5) mg/dL AST 11 (5-31) U/L ALT 17 (0-31) U/L Alkaline Phosphatase 53 (39-117) U/L Troponin I High Sens 13.9 D (<3.5-17.0) ng/L Total Protein 5.7 L (6.5-8.0) g/dL Albumin 1.6 L (3.5-5.0) g/dL Coronavirus (PCR) (Negative) Influenza Type A (PCR) (Negative) Influenza Type B (PCR) (Negative) RSV RNA Qual (PCR) (Negative) 02/22/21 02/22/21 02/22/21 Range/Units 15:45 15:46 15:46 WBC 2.0 L (4.8-10.8) X10*3/uL RBC 2.51 L (4.20-5.50) X10*6/uL Hgb 8.6 L (12.0-16.0) g/dl Hct 26.3 L (37-47) % MCV 104.8 H (80-98) fL MCH 34.3 H (27.0-33.0) pg MCHC 32.7 (31.0-35.0) g/dl RDW 16.4 H (11.0-16.0) % Plt Count 82 L (160-400) X10*3/uL MPV 12.3 (9.4-12.3) fL Immature Gran % (Auto) Cancelled Neut % (Auto) Cancelled Lymph % (Auto) Cancelled [place] % (Auto) Cancelled Eos % (Auto) Cancelled Baso % (Auto) Cancelled Lymph # (Auto) Cancelled [place] # (Auto) Cancelled Eos # (Auto) Cancelled Baso # (Auto) Cancelled Abs Immat Gran (auto) Cancelled Absolute Neuts (auto) Cancelled Absolute Nucleated RBC 0.000 (0.0-0.012) X10*3/uL Nucleated RBC % (auto) 0.0 (0.0-0.2) /100WBC Neutrophils % (Manual) 67 (45-73) % Band Neutrophils % 7 H (3-5) % Lymphocytes % (Manual) 22 (20-40) % Monocytes % (Manual) 4 (2-11) % Abs Neuts (Manual) 1.5 L (2.2-7.9) X10*3/uL Lymphocytes # (Manual) 0.4 L (0.6-4.8) X10*3/uL Monocytes # (Manual) 0.1 (0.0-1.2) X10*3/uL Dohle Bodies PRESENT Platelet Estimate DECREASED (NORMAL) Plt Morphology Comment NORMAL RBC Morphology NOTED Polychromasia 1+ (0-2) /OIF [place] Cells 1+ (0-2) /OIF Sodium 136 (135-145) mmol/L Potassium 4.0 (3.3-5.1) mmol/L Chloride 112 H (96-108) mmol/L Carbon Dioxide 20 L (22-29) mmol/L Anion Gap 8 L (12-20) BUN 11 (9-16) mg/dL Creatinine 0.98 (0.5-1.4) mg/dL Estim Creat Clear Calc 60.2 Estimated GFR 55 Random Glucose 154 H D (60-115) mg/dL Lactic Acid (0.5-2.0) mmol/L Lactic Acid Fup @ 2Hr (0.5-2.0) mmol/L Calcium 6.7 L (8.4-10.2) mg/dL Total Bilirubin (0.0-1.0) mg/dL Direct Bilirubin (0.0-0.5) mg/dL AST (5-31) U/L ALT (0-31) U/L Alkaline Phosphatase (39-117) U/L Troponin I High Sens (<3.5-17.0) ng/L Total Protein (6.5-8.0) g/dL Albumin (3.5-5.0) g/dL Coronavirus (PCR) NEGATIVE (Negative) Influenza Type A (PCR) NEGATIVE (Negative) Influenza Type B (PCR) NEGATIVE (Negative) RSV RNA Qual (PCR) NEGATIVE (Negative) 02/22/21 Range/Units 17:58 WBC (4.8-10.8) X10*3/uL RBC (4.20-5.50) X10*6/uL Hgb (12.0-16.0) g/dl Hct (37-47) % MCV (80-98) fL MCH (27.0-33.0) pg MCHC (31.0-35.0) g/dl RDW (11.0-16.0) % Plt Count (160-400) X10*3/uL MPV (9.4-12.3) fL Immature Gran % (Auto) Neut % (Auto) Lymph % (Auto) [place] % (Auto) Eos % (Auto) Baso % (Auto) Lymph # (Auto) [place] # (Auto) Eos # (Auto) Baso # (Auto) Abs Immat Gran (auto) Absolute Neuts (auto) Absolute Nucleated RBC (0.0-0.012) X10*3/uL Nucleated RBC % (auto) (0.0-0.2) /100WBC Neutrophils % (Manual) (45-73) % Band Neutrophils % (3-5) % Lymphocytes % (Manual) (20-40) % Monocytes % (Manual) (2-11) % Abs Neuts (Manual) (2.2-7.9) X10*3/uL Lymphocytes # (Manual) (0.6-4.8) X10*3/uL Monocytes # (Manual) (0.0-1.2) X10*3/uL Dohle Bodies Platelet Estimate (NORMAL) Plt Morphology Comment RBC Morphology Polychromasia /OIF [place] Cells /OIF Sodium (135-145) mmol/L Potassium (3.3-5.1) mmol/L Chloride (96-108) mmol/L Carbon Dioxide (22-29) mmol/L Anion Gap (12-20) BUN (9-16) mg/dL Creatinine (0.5-1.4) mg/dL Estim Creat Clear Calc Estimated GFR Random Glucose (60-115) mg/dL Lactic Acid (0.5-2.0) mmol/L Lactic Acid Fup @ 2Hr 1.6 (0.5-2.0) mmol/L Calcium (8.4-10.2) mg/dL Total Bilirubin (0.0-1.0) mg/dL Direct Bilirubin (0.0-0.5) mg/dL AST (5-31) U/L ALT (0-31) U/L Alkaline Phosphatase (39-117) U/L Troponin I High Sens (<3.5-17.0) ng/L Total Protein (6.5-8.0) g/dL Albumin (3.5-5.0) g/dL Coronavirus (PCR) (Negative) Influenza Type A (PCR) (Negative) Influenza Type B (PCR) (Negative) RSV RNA Qual (PCR) (Negative) <Shaina Hilliard MD - Last Filed: 02/22/21 18:34> ECG Data Attestation: I personally reviewed and interpreted this ECG as follows: <Junior Anthony MD - Last Filed: 02/22/21 16:44> Interpretation: sinus tachycardia rate 110, no st or twave changes <Junior Anthony MD - Last Filed: 02/22/21 16:44> Critical Care Time Critical Care Time Total Critical Care Time: 45 <Shaina Hilliard MD - Last Filed: 02/22/21 18:34> Discharge Plan Discharge Clinical Impression: Neutropenia, Diarrhea, Acute hypotension <Junior Anthony MD - Last Filed: 02/22/21 16:44> Patient Disposition: Admitted As Inpatient <Junior Anthony MD - Last Filed: 02/22/21 16:44> Prescriptions: No Action ondansetron HCl [Zofran] 4 mg Tablet 8 mg PO Q8H PRN (Reason: Nausea And Vomiting) Qty: 50 RF: 4 acyclovir 400 mg Tablet 400 mg PO DAILY Qty: 90 RF: 4 magnesium oxide 400 mg (241.3 mg magnesium) Tablet 400 mg PO BIDPC Qty: 60 RF: 0 polyethylene glycol 3350 [Miralax] 17 gram/dose Powder 17 g PO DAILY PRN (Reason: Constipation) RF: 0 spironolactone 50 mg Tablet 50 mg PO DAILY RF: 0 potassium chloride 20 mEq Tablet Extended Release 20 meq PO BID Qty: 60 RF: 3 butenafine [Lotrimin Ultra] 1 % Cream 1 appl TOPICAL BID Qty: 45 RF: 4 calcium carbonate-vitamin D3 [Calcium 500 + D (D3)] 500 mg(1,250mg) -125 unit Tablet 1 tab PO BID RF: 0 Revlimid 15 mg Capsule 15 mg PO DAILY Qty: 21 RF: 11 sennosides [senna] 8.6 mg Tablet 8.6 mg PO BEDTIME PRN (Reason: Constipation) RF: 0 atovaquone [Mepron] 750 mg/5 mL Suspension 1,500 mg PO DAILY Qty: 300 RF: 6 metoclopramide HCl [Reglan] 5 mg tablet 5 mg PO TIDAC Qty: 30 RF: 0 ibuprofen 200 mg tablet 400 mg PO Q8H PRN (Reason: pain) Qty: 30 RF: 0 aspirin 81 mg tablet,chewable 81 mg PO DAILY RF: 0 docusate sodium 100 mg capsule 100 mg PO BID PRN (Reason: Constipation) RF: 0 insulin aspart U-100 100 unit/mL (3 mL) insulin pen 2 - 12 unit subcut TID RF: 0 omeprazole 20 mg capsule,delayed release(DR/EC) 20 mg PO BID RF: 0 <Junior Anthony MD - Last Filed: 02/22/21 16:44>
[2021-02-22] MEDS: ondansetron HCL 4 MG/2 ML VIAL IVPUSH (15:40)
[2021-02-22] MEDS: 0.9 % Sodium Chloride 1,000 ML 999 ML IVCONT ×3 (15:40→18:01)
[2021-02-22] MEDS: Acetaminophen 325 MG TABLET 975 MG PO (15:40)
[2021-02-22 15:59] LABS: Hemoglobin 8.6 g/dl (12.0-16.0)
--- NOTE | 2021-02-22 16:02 | PC.NURSE ---
PORT ACCESS OBTAINED. PT REPOSITIONED FOR COMFORT, LOWER BACK PAIN. SLIGHTLY TACHY IN LOW 100S ON MONITOR. BP SOFT. IVF RUNNING. WILL CONTINUE TO MONITOR.
[2021-02-22 16:03] LABS: Hematocrit 26.3 % (37-47); Mean Corpuscular HGB Conc 32.7 g/dl (31.0-35.0); Mean Corpuscular Hemoglobin 34.3 pg (27.0-33.0); Mean Corpuscular Volume 104.8 fL (80-98); Mean Platelet Volume 12.3 fL (9.4-12.3); Red Blood Count 2.51 X10*6/uL (4.20-5.50); Red Cell Distribution Width 16.4 % (11.0-16.0)
[2021-02-22 16:06] LABS: Platelet Count 82 X10*3/uL (160-400)
[2021-02-22 16:16] LABS: Lactic Acid 2.4 mmol/L (0.5-2.0)
[2021-02-22 16:18] LABS: Anion Gap 8 (12-20); Blood Urea Nitrogen 11 mg/dL (9-16); Calcium 6.7 mg/dL (8.4-10.2); Carbon Dioxide 20 mmol/L (22-29); Chloride 112 mmol/L (96-108); Creatinine Clr Calc Pharmacy 60.2; Estimated Glomerular Filt Rate 55; Glucose Random 154 mg/dL (60-115); Sodium 136 mmol/L (135-145)
[2021-02-22 16:19] LABS: Troponin-I High Sensitivity 13.9 ng/L (<3.5-17.0)
[2021-02-22 16:19] LABS: Alanine Aminotransferase 17 U/L (0-31); Albumin Level 1.6 g/dL (3.5-5.0); Alkaline Phosphatase 53 U/L (39-117); Aspartate Amino Transferase 11 U/L (5-31); Bilirubin Direct 0.5 mg/dL (0.0-0.5); Bilirubin Total 1.5 mg/dL (0.0-1.0); Total Protein 5.7 g/dL (6.5-8.0)
[2021-02-22 16:52] LABS: Band Neutrophils Percent 7 % (3-5); Lymphocytes Absolute Manual 0.4 X10*3/uL (0.6-4.8); Lymphocytes Percent Manual 22 % (20-40); Monocytes Absolute Manual 0.1 X10*3/uL (0.0-1.2); Monocytes Percent Manual 4 % (2-11); Neutrophils Absolute Manual 1.5 X10*3/uL (2.2-7.9); Neutrophils Percent Manual 67 % (45-73)
[2021-02-22 16:54] LABS: Burr Cells 1+ (0-2) /OIF; Polychromasia 1+ (0-2) /OIF; RBC Morphology NOTED
[2021-02-22 16:55] LABS: Dohle Bodies PRESENT; Platelet Estimate DECREASED (NORMAL); Platelet Morphology Comment NORMAL
[2021-02-22 16:57] LABS: Influenza A PCR NEGATIVE (Negative); Influenza B PCR NEGATIVE (Negative); Resp Syncy Virus RNA Qual PCR NEGATIVE (Negative); SARS COV2 PCR INHOUSE NEGATIVE (Negative)
[2021-02-22] MEDS: Nystatin Cream 15 GM TUBE 1 APPL TOPICAL (17:05)
[2021-02-22 17:51] LABS: Reflex Lactate? Lactic Acid Added
[2021-02-22] MEDS: cefEPime HCl 2 GM in 0.9 % Sodium Chloride 50 ML IV (18:01)
[2021-02-22 18:22] LABS: ~Lactic Acid-LAB USE ONLY 1.6 mmol/L (0.5-2.0)
--- NOTE | 2021-02-22 19:08 | PHA.MEDREC ---
Pharmacy Consult ? Medication Reconciliation Pharmacy has completed the medication reconciliation.
--- NOTE | 2021-02-22 20:43 | PC.NURSE ---
bps have remained low, pt mentating well throughout. aware. Pt states her bps have been low since starting chemotherapy. pt moved into hospital bed for comfort. lower back pain mildly alleviated. awaiting bed assignment. pt aware of plan for care
--- NOTE | 2021-02-22 21:21 | MHC.CM.PN ---
CM met with admitted patient, bed assignment pending. Pt is A&O. IMM reviewed and signed. Lives with daughter and her family. HCP/daughter, Jenny Dow ([phone]). HCP is on file. Pt has a wheeled walker and a wheelchair. Has CPAP, but does not use it. Has [facility] for PT services. Pt has Medicare part A and [employer] for insurance. Currently undergoing Chemotherapy for multiple myeloma since June of 2020. D/C plan is home with continued [facility]. Family to provide transportation. Will need a PT assessment. CM to follow for d/c needs.
[2021-02-23] VITALS (10 sets, daily range): BP systolic 90–134; BP diastolic 53–59; PULSE 90–104; RESP 16–18; TEMP 35.9–37.1; O2SAT 94–100; BMI 42.2
[2021-02-23] MEDS: Omeprazole 20 MG CAPSULE.DR PO ×3 (01:02→21:03)
[2021-02-23] MEDS: Heparin Sodium,Porcine 5,000 UNIT/ML VIAL 5000 UNIT SUBCUT ×2 (01:02→12:38)
[2021-02-23] MEDS: 0.9 % Sodium Chloride Flush 3 ML SYRINGE IVFLUSH ×3 (01:05→16:42)
[2021-02-23 01:28] LABS: Glucose, Whole Blood 106 mg/dL (60-115)
[2021-02-23] MEDS: cefEPime HCl 2 GM in 0.9 % Sodium Chloride 50 ML IV ×3 (02:53→17:49)
[2021-02-23] MEDS: ondansetron HCL 4 MG/2 ML VIAL IVPUSH (06:02)
--- NOTE | 2021-02-23 06:58 | P.HPHOSP_ITS ---
History of Present Illness Date of Service: 02/22/21 Chief Complaint: Fever This is a 75-year-old female with past medical history of multiple myeloma currently undergoing treatment, diabetes, HTN, leukopenia, obstructive sleep apnea who presents to the hospital with fever 1 week after undergoing her chemotherapy treatment for multiple myeloma. Patient reports that she has been having diarrhea mostly at night about 5-6 times a night for couple of weeks. she also developed a fever of 100.5 today which concerned her and caused her to come to the hospital. She denies any cough, no shortness of breath, no urinary symptoms, no rash or skin changes, denies any abdominal pain, no vomiting. She denies any numbness tingling or any weakness in her extremities. To have a temperature of 99.3, heart rate of 107, respiratory rate of 18, blood pressure 126/94, satting 99% on room air. Patient's blood pressure did drop in the 90s over 50s in the ED status post resuscitation was 3 L of IV fluids with blood pressure normalizing. Labs are significant for WBC count of 2.1, hemoglobin of 8.6 both around her baseline, platelets of 82, COVID-19 negative Past medical history as below and confirmed with patient Review of Systems Review of Systems: Yes all other systems are reviewed and are negative [facility] Medical History Diabetes mellitus type 2, controlled, without complications Essential hypertension Hypercalcemia Hyperlipidemia, unspecified Hypoglycemia unawareness associated with type 2 diabetes mellitus Obstructive sleep apnea Pancytopenia Streptococcal pneumonia Subclinical hyperthyroidism Family History Father No problems noted. Mother Heart disease Brother Atrial fibrillation Brother Atrial fibrillation Brother Atrial fibrillation Surgical History History of knee replacement History of left hip replacement Social History Household Members: Family Household Members Other:: 3 Housing: Unknown / Unable to assess Do you presently have visiting nurse or other home services: No Alcohol intake: never Patient Tobacco Use Status: Never used Tobacco Smoked in Last 30 Days: No Patient Interested in Nicotine Replacement: No Patient Given Instructions on How to Stop Smoking: No Use of substances other than those prescribed or required for medical reasons: No Currently Displaying Signs/Symptoms of Drug Intoxication Withdrawal: No Have you been hit, kicked, punched, or otherwise hurt by someone within the past year? If so, by whom?: No Do you feel safe in your current relationship?: No Is there a partner from a previous relationship who is making you feel unsafe now?: No Advance Directives: No Advance Directives Information Provided: No Advance Directives Date on File: 10/09/20 Do you have thoughts of harming others: None Do you have a plan to hurt others: No Plan Recently lost weight without trying: Unsure Nutrition Risks: Poor intake 0-25% >4 days service: No Current occupational status: disabled Meds Allergies Allergy/AdvReac Type Severity Reaction Status Date / Time codeine [CODEINE] Allergy Intermediate NAUSEA & Verified 02/22/21 14:30 VOMITING, vomiting lisinopril [LISINOPRIL] Allergy Intermediate COUGH, Verified 02/22/21 14:30 Coughing sulfamethoxazole Allergy Intermediate RASH Verified 02/22/21 14:30 [From BACTRIM] Active Medications: Current Medications Generic Name Dose Route Start Last Admin Trade Name Freq PRN Reason Stop Dose Admin Acetaminophen 650 mg 02/22/21 23:12 Acetaminophen 325 Mg Tablet PO Q6H PRN Pain, Mild (Pain Scale 1-3) Acyclovir 400 mg 02/23/21 09:00 Acyclovir 200 Mg Capsule PO DAILY [facility] Aspirin 81 mg 02/23/21 09:00 Aspirin 81 Mg Tab.Chew PO DAILY [facility] Atovaquone 1,500 mg 02/23/21 09:00 Atovaquone 750 Mg/5 Ml Oral.Susp PO DAILY [facility] Dexamethasone 20 mg 02/24/21 20:48 Dexamethasone 4 Mg Tablet PO WE [facility] Docusate Sodium 100 mg 02/22/21 23:12 Docusate Sodium 100 Mg Capsule PO DAILY PRN Constipation Duloxetine HCl 20 mg 02/23/21 09:00 Duloxetine Hcl 20 Mg Capsule.Dr PO DAILY [facility] Heparin Sodium (Porcine) 5,000 unit 02/23/21 00:00 02/23/21 01:02 Heparin Sodium,Porcine 5,000 Unit/Ml Vial SUBCUT 5,000 unit Q12H [facility] Administration Cefepime HCl 2 gm/ Sodium 50 mls @ 100 mls/hr 02/23/21 02:00 02/23/21 03:30 Chloride IV Infused Q8H [facility] Infusion Magnesium Oxide 400 mg 02/23/21 08:30 Magnesium Oxide 400 Mg Tablet PO BIDPC [facility] Non-Formulary Medication 15 mg 02/23/21 09:00 Lenalidomide [Revlimid] PO DAILY [facility] Omeprazole 20 mg 02/22/21 23:12 02/23/21 01:02 Omeprazole 20 Mg Capsule.Dr PO 20 mg BID [facility] Administration Ondansetron HCl 4 mg 02/22/21 23:12 02/23/21 06:02 Ondansetron Hcl 4 Mg/2 Ml Vial IVPUSH 4 mg Q8H PRN Administration Nausea and Vomiting Pharmacy Consult 1 each 02/22/21 18:27 Consult Rx Perform Med Rec MISCELLANE ONCE PRN Consult order Potassium Chloride 40 meq 02/23/21 09:00 Potassium Chloride Er 20 Meq Tab.Er.Prt PO DAILY [facility] Sodium Chloride 3 ml 02/23/21 00:00 02/23/21 01:05 0.9 % Sodium Chloride Flush 3 Ml Syringe IVFLUSH 3 ml QSHIFT [facility] Administration Spironolactone 50 mg 02/23/21 09:00 Spironolactone 25 Mg Tablet PO DAILY [facility] Protocol Home Medications Medication Instructions Recorded Confirmed Last Taken Type aspirin 81 mg chewable tablet 81 mg PO DAILY 04/22/20 02/22/21 02/22/21 History insulin aspart U-100 100 unit/mL 4 - 24 unit SUBCUT TID 04/22/20 02/22/21 Unknown History (3 mL) subcutaneous pen omeprazole 20 mg capsule,delayed 20 mg PO BID 04/22/20 02/22/21 02/22/21 History release spironolactone 50 mg tablet 50 mg PO DAILY 01/05/21 02/22/21 02/22/21 History calcium carbonate 500 mg (1,250 1 tab PO BID 02/02/21 02/22/21 02/22/21 History mg)-vitamin D3 125 unit tablet dexamethasone 4 mg tablet 20 mg PO WE 02/22/21 02/22/21 02/17/21 History duloxetine 20 mg capsule,delayed 1 cap PO DAILY 02/22/21 02/22/21 02/22/21 History release potassium chloride 20 mEq 40 meq PO DAILY 02/22/21 02/22/21 02/22/21 History tablet,extended release Physical Exam Vital Signs and Narrative: Vital Signs: Last Vital Signs Temp 98.3 F 02/23/21 04:00 Pulse 95 02/23/21 04:00 Resp 18 02/23/21 04:00 BP 97/56 L 02/23/21 04:00 Pulse Ox 100 02/23/21 04:00 Body Mass Index 42.2 Const: General: cooperative and no acute distress Eyes: General: appearance normal, both eyes and all related structures Pupils: Equal, round and reactive pupils present Resp: Effort & Inspection: normal respiratory effort and able to speak in complete sentences Cardio: Rate: regular rate Rhythm: regular rhythm GI: Palpation (GI): Soft to palpation Auscultation: normal bowel sounds Skin: General skin exam: no rashes or lesions noted Neuro: Cranial nerves: Yes Equal, round and reactive pupils present Cognition (Neuro): normal cognition Extrem: General: Yes normal to inspection and Yes no pedal edema Results Labs CBC and Chem 7: 02/22/21 15:46 02/22/21 15:46 Labs: Laboratory Results - last 24 hr 02/22/21 02/22/21 02/22/21 15:38 15:45 15:45 MCV MCH MCHC RDW Plt Count MPV Immature Gran % (Auto) Neut % (Auto) Lymph % (Auto) [place] % (Auto) Eos % (Auto) Baso % (Auto) Lymph # (Auto) [place] # (Auto) Eos # (Auto) Baso # (Auto) Abs Immat Gran (auto) Absolute Neuts (auto) Absolute Nucleated RBC Nucleated RBC % (auto) Neutrophils % (Manual) Band Neutrophils % Lymphocytes % (Manual) Monocytes % (Manual) Abs Neuts (Manual) Lymphocytes # (Manual) Monocytes # (Manual) Dohle Bodies Platelet Estimate Plt Morphology Comment RBC Morphology Polychromasia Latosha Cells Anion Gap Estim Creat Clear Calc Estimated GFR POC Glucose Random Glucose Lactic Acid 2.4 H* Lactic Acid Fup @ 2Hr Calcium Total Bilirubin 1.5 H Direct Bilirubin 0.5 AST 11 ALT 17 Alkaline Phosphatase 53 Troponin I High Sens 13.9 D Total Protein 5.7 L Albumin 1.6 L Coronavirus (PCR) Influenza Type A (PCR) Influenza Type B (PCR) RSV RNA Qual (PCR) 02/22/21 02/22/21 02/22/21 15:45 15:46 15:46 MCV 104.8 H MCH 34.3 H MCHC 32.7 RDW 16.4 H Plt Count 82 L MPV 12.3 Immature Gran % (Auto) Cancelled Neut % (Auto) Cancelled Lymph % (Auto) Cancelled [place] % (Auto) Cancelled Eos % (Auto) Cancelled Baso % (Auto) Cancelled Lymph # (Auto) Cancelled [place] # (Auto) Cancelled Eos # (Auto) Cancelled Baso # (Auto) Cancelled Abs Immat Gran (auto) Cancelled Absolute Neuts (auto) Cancelled Absolute Nucleated RBC 0.000 Nucleated RBC % (auto) 0.0 Neutrophils % (Manual) 67 Band Neutrophils % 7 H Lymphocytes % (Manual) 22 Monocytes % (Manual) 4 Abs Neuts (Manual) 1.5 L Lymphocytes # (Manual) 0.4 L Monocytes # (Manual) 0.1 Dohle Bodies PRESENT Platelet Estimate DECREASED Plt Morphology Comment NORMAL RBC Morphology NOTED Polychromasia 1+ (0-2) [place] Cells 1+ (0-2) Anion Gap 8 L Estim Creat Clear Calc 60.2 Estimated GFR 55 POC Glucose Random Glucose 154 H D Lactic Acid Lactic Acid Fup @ 2Hr Calcium 6.7 L Total Bilirubin Direct Bilirubin AST ALT Alkaline Phosphatase Troponin I High Sens Total Protein Albumin Coronavirus (PCR) NEGATIVE Influenza Type A (PCR) NEGATIVE Influenza Type B (PCR) NEGATIVE RSV RNA Qual (PCR) NEGATIVE 02/22/21 02/23/21 17:58 01:03 MCV MCH MCHC RDW Plt Count MPV Immature Gran % (Auto) Neut % (Auto) Lymph % (Auto) [place] % (Auto) Eos % (Auto) Baso % (Auto) Lymph # (Auto) [place] # (Auto) Eos # (Auto) Baso # (Auto) Abs Immat Gran (auto) Absolute Neuts (auto) Absolute Nucleated RBC Nucleated RBC % (auto) Neutrophils % (Manual) Band Neutrophils % Lymphocytes % (Manual) Monocytes % (Manual) Abs Neuts (Manual) Lymphocytes # (Manual) Monocytes # (Manual) Dohle Bodies Platelet Estimate Plt Morphology Comment RBC Morphology Polychromasia Lat[place]ha Cells Anion Gap Estim Creat Clear Calc Estimated GFR POC Glucose 106 Random Glucose Lactic Acid Lactic Acid Fup @ 2Hr 1.6 Calcium Total Bilirubin Direct Bilirubin AST ALT Alkaline Phosphatase Troponin I High Sens Total Protein Albumin Coronavirus (PCR) Influenza Type A (PCR) Influenza Type B (PCR) RSV RNA Qual (PCR) Imaging Radiologist's Impressions: Impressions Chest X-Ray 02/22/21 14:41 IMPRESSION: No acute intrathoracic disease. Lungs clear. Assessment and Plan (1) Diarrhea: Status: Acute (2) Acute hypotension: Status: Acute (3) Neutropenic fever: Status: Acute (4) Leukopenia: Status: Acute 75-year-old female with multiple myeloma undergoing treatment at this time presents with to the hospital with complaints of fever and diarrhea. # neutropenic fever - has hypertension, febrile, leukopenia - UA negative, chest x-ray negative - at this time will start her on cefepime - will follow cultures - Hematology-Oncology consulted # hypotension - unclear etiology possibly secondary to sepsis although no sores - treated with IV fluids - monitor # diarrhea - will rule out C diff - supportive measures - will hold her antihypertensives # diabetes - low-dose sliding scale - diabetic diet DVT prophylaxis: Heparin subQ Quality Stroke Does the patient have a stroke diagnosis?: No VTE Prior VTE?: No VTE Risk Level:: Medical - moderate - high VTE Device Contraindication: Treatment Not Indicated VTE Drug Contraindication: N/A - Med Ordered
[2021-02-23 07:06] LABS: Glucose Urine UA NEG (NEG); Leukocyte Esterase Urine NEG (NEG); Nitrite Urine NEG (NEG); Specific Gravity - Urine 1.025 (1.005-1.025); UACC Culture Trigger NO; Urine Blood NEG (NEG); Urine Ketones NEG (NEG); Urine Protein 1+ MG/DL (NEG-TRACE)
[2021-02-23 07:07] LABS: Appearance Urine HAZY; Color Urine YELLOW
[2021-02-23 07:12] LABS: Bacteria Urine 1+ /LPF; Mucus Urine 1+ /LPF; RBC Urine 0-2 /HPF (0); Squamous Epithelial Cell Urine 1+ /LPF; WBC Urine 0-2 /HPF (0-4)
[2021-02-23 07:37] LABS: Glucose, Whole Blood 104 mg/dL (60-115)
[2021-02-23 07:46] LABS: Mean Corpuscular Volume 105.7 fL (80-98)
[2021-02-23 07:48] LABS: Hematocrit 22.1 % (37-47); Hemoglobin 7.1 g/dl (12.0-16.0); Mean Corpuscular HGB Conc 32.1 g/dl (31.0-35.0); Mean Platelet Volume 12.9 fL (9.4-12.3); Red Blood Count 2.09 X10*6/uL (4.20-5.50); Red Cell Distribution Width 16.4 % (11.0-16.0)
[2021-02-23 08:03] LABS: PLT ABN DIST 1; Platelet Count 56 X10*3/uL (160-400)
[2021-02-23 08:06] LABS: Anion Gap 6 (12-20); Blood Urea Nitrogen 11 mg/dL (9-16); Calcium 6.1 mg/dL (8.4-10.2); Carbon Dioxide 21 mmol/L (22-29); Chloride 115 mmol/L (96-108); Creatinine Clr Calc Pharmacy 70.2; Estimated Glomerular Filt Rate > 60; Glucose Random 101 mg/dL (60-115); Potassium 3.8 mmol/L (3.3-5.1); Sodium 138 mmol/L (135-145)
[2021-02-23] MEDS: Potassium Chloride ER 20 MEQ TAB.ER.PRT 40 MEQ PO (08:29)
[2021-02-23] MEDS: Aspirin 81 MG TAB.CHEW PO (08:30)
[2021-02-23] MEDS: DULoxetine HCl 20 MG CAPSULE.DR PO (08:30)
[2021-02-23] MEDS: Atovaquone 750 MG/5 ML ORAL.SUSP 1500 MG PO (08:31)
[2021-02-23] MEDS: Acyclovir 200 MG CAPSULE 400 MG PO (08:31)
[2021-02-23] MEDS: Magnesium Oxide 400 MG TABLET PO ×2 (08:31→17:47)
[2021-02-23 08:35] LABS: Band Neutrophils Percent 4 % (3-5); Eosinophils Percent Manual 1 % (0-4); Lymphocytes Absolute Manual 0.1 X10*3/uL (0.6-4.8); Lymphocytes Percent Manual 11 % (20-40); Monocytes Percent Manual 2 % (2-11); Neutrophils Absolute Manual 0.9 X10*3/uL (2.2-7.9); Neutrophils Percent Manual 82 % (45-73)
[2021-02-23 08:38] LABS: Hypochromasia 2+ (15-30) /OIF; Macrocytosis 2+ (15-30) /OIF; RBC Morphology NOTED
[2021-02-23 08:39] LABS: Burr Cells 2+ (3-5) /OIF; Platelet Estimate DECREASED (NORMAL); Platelet Morphology Comment NORMAL
[2021-02-23 11:14] LABS: Glucose, Whole Blood 151 mg/dL (60-115)
--- NOTE | 2021-02-23 11:22 | PM.HEMONCCN ---
Subjective - Subjective Chief complaint: Consult for: Neutropenic bacteremia. In the setting of chemo for MM. Patient: known to practice within the last 3 years Consult date: 02/23/21 Requesting Physician: Heather. Primary Care Provider: Iveth Cowart MD Medical Summary: DIAGNOSIS: MULTIPLE MYELOMA. ON CHEMOTHERAPY. NEUTROPENIC FEVER. HPI - Consult Narrative Reason for consult: Consult for: Neutropenic sepsis. On chemo for Multiple myeloma. Narrative: Klaudia Dow is a pleasant 75 year old lady, who presents to the hospital with fever 1 week after undergoing her chemotherapy treatment for multiple myeloma. Patient reports that she has been having diarrhea mostly at night about 5-6 times a night for couple of weeks. she also developed a fever of 100.5 today which concerned her and caused her to come to the hospital. She denies any cough, no shortness of breath, no urinary symptoms, no rash or skin changes, denies any abdominal pain, no vomiting. She denies any numbness tingling or any weakness in her extremities. To have a temperature of 99.3, heart rate of 107, respiratory rate of 18, blood pressure 126/94, satting 99% on room air. Patient's blood pressure did drop in the 90s over 50s in the ED status post resuscitation was 3 L of IV fluids with blood pressure normalizing. Labs are significant for WBC count of 2.1, hemoglobin of 8.6 both around her baseline, platelets of 82, COVID-19 negative Past medical history of: 1. Multiple myeloma currently undergoing treatment, 2. Diabetes, 3. HTN, 4. leukopenia, 5. Obstructive sleep apnea Review of Systems - Constitutional Reports system reviewed and no additional complaints, except as documented - Eyes Reports system reviewed and no additional complaints, except as documented - ENT Reports system reviewed and no additional complaints, except as documented - Cardiovascular Reports system reviewed and no additional complaints, except as documented - Respiratory Reports no additional respiratory complaints - Gastrointestinal Reports system reviewed and no additional complaints, except as documented - Genitourinary Reports no additional female genitourinary complaints - Musculoskeletal Reports system reviewed and no additional complaints, except as documented - Integumentary/Breasts Skin/Breast: Reports no additional skin complaints - Neurologic Reports system reviewed and no additional complaints, except as documented, Denies dizziness, Denies sensory deficit - Psychiatric Reports system reviewed and no additional complaints, except as documented - Endocrine Reports no additional endocrine complaints - Hematologic/Lymphatic Reports system reviewed and no additional complaints, except as documented - Allergic/Immunologic Reports system reviewed and no additional complaints, except as documented Oncology Screenings - ECOG Performance Status ECOG Performance Status: 1 [facility] Medical History: Medical History (Last Reviewed 02/23/21 @ 07:04 by Dirk Rich MD) Diabetes mellitus type 2, controlled, without complications Essential hypertension Hypercalcemia Hyperlipidemia, unspecified Hypoglycemia unawareness associated with type 2 diabetes mellitus Obstructive sleep apnea Pancytopenia Streptococcal pneumonia Subclinical hyperthyroidism Functional capacity: uses cane/walker Patient : No Family History: Family History (Last Reviewed 02/23/21 @ 07:04 by Dirk Rich MD) Father No problems noted. Mother Heart disease Brother Atrial fibrillation Brother Atrial fibrillation Brother Atrial fibrillation Surgical History: Surgical History (Last Reviewed 02/23/21 @ 07:04 by Dirk Rich MD) History of knee replacement History of left hip replacement Social History: Social History (Last Reviewed 02/23/21 @ 07:04 by Dirk Rich MD) Living Situation History: Household Members: Family Household Members Other:: 3 Housing: Unknown / Unable to asses Do you presently have visiting nurse or other home services: No Alcohol History: Alcohol intake: never Alcohol History Details: Alcohol intake frequency: does not drink Tobacco History: Patient Tobacco Use Status: Never used Tobacco Smoked in Last 30 Days: No Patient Interested in Nicotine Replacement: No Patient Given Instructions on How to Stop Smoking: No Substance Use History: Use of substances other than those prescribed or required for medical reasons: No Currently Displaying Signs/Symptoms of Drug Intoxication Withdrawal: No Domestic Abuse History: Have you been hit, kicked, punched, or otherwise hurt by someone within the past year? If so, by whom?: No Do you feel safe in your current relationship?: No Is there a partner from a previous relationship who is making you feel unsafe now?: No Advance Directives: Advance Directives: No Advance Directives Information Provided: No Advance Directives Date on File: 10/09/20 Homicidal Assessment: Do you have thoughts of harming others: None Do you have a plan to hurt others: No Plan Nutrition Assessment: Recently lost weight without trying: Unsure Nutrition Risks: Poor intake 0-25% >4 days Patient : No Occupation Assessmet: service: No Current occupational status: disabled Home Medications and Allergies Current Medications: Current Medications Generic Name Dose Route Start Last Admin Trade Name Freq PRN Reason Stop Dose Admin Acetaminophen 650 mg 02/22/21 23:12 Acetaminophen 325 Mg Tablet PO Q6H PRN Pain, Mild (Pain Scale 1-3) Acyclovir 400 mg 02/23/21 09:00 02/23/21 08:31 Acyclovir 200 Mg Capsule PO 400 mg DAILY DONAVAN Administration Aspirin 81 mg 02/23/21 09:00 02/23/21 08:30 Aspirin 81 Mg Tab.Chew PO 81 mg DAILY DONAVAN Administration Atovaquone 1,500 mg 02/23/21 09:00 02/23/21 08:31 Atovaquone 750 Mg/5 Ml Oral.Susp PO 1,500 mg DAILY DONAVAN Administration Dexamethasone 20 mg 02/24/21 20:48 Dexamethasone 4 Mg Tablet PO WE DONAVAN Dextrose 25 gm 02/23/21 06:59 Dextrose 50 % 25 Gm/50 Ml Vial IVPUSH Q15M PRN per Hypoglycemia Standing Ord. Protocol Docusate Sodium 100 mg 02/22/21 23:12 Docusate Sodium 100 Mg Capsule PO DAILY PRN Constipation Duloxetine HCl 20 mg 02/23/21 09:00 02/23/21 08:30 Duloxetine Hcl 20 Mg Capsule.Dr PO 20 mg DAILY DONAVAN Administration Glucose 15 gm 02/23/21 06:59 Glucose Gel 15 Gm Gel..Gram. PO Q15M PRN per Hypoglycemia Standing Ord. Protocol Heparin Sodium (Porcine) 5,000 unit 02/23/21 00:00 02/23/21 01:02 Heparin Sodium,Porcine 5,000 Unit/Ml Vial SUBCUT 5,000 unit Q12H DONAVAN Administration Cefepime HCl 2 gm/ Sodium 50 mls @ 100 mls/hr 02/23/21 02:00 02/23/21 10:55 Chloride IV Infused Q8H DONAVAN Infusion Insulin Human Lispro 0 unit 02/23/21 07:30 02/23/21 08:04 Insulin Lispro 100 Unit/Ml 3 Ml Vial SUBCUT Not Given QIDACHS [facility] Protocol Magnesium Oxide 400 mg 02/23/21 08:30 02/23/21 08:31 Magnesium Oxide 400 Mg Tablet PO 400 mg BIDPC DONAVAN Administration Pt Own Med ( 15 each 02/24/21 09:00 02/23/21 10:24 Lenalidomide 15 Mg PO 15 each Capsule) DAILY DONAVAN Administration Omeprazole 20 mg 02/22/21 23:12 02/23/21 08:30 Omeprazole 20 Mg Capsule.Dr PO 20 mg BID DONAVAN Administration Ondansetron HCl 4 mg 02/22/21 23:12 02/23/21 06:02 Ondansetron Hcl 4 Mg/2 Ml Vial IVPUSH 4 mg Q8H PRN Administration Nausea and Vomiting Pharmacy Consult 1 each 02/22/21 18:27 Consult Rx Perform Med Rec MISCELLANE ONCE PRN Consult order Potassium Chloride 40 meq 02/23/21 09:00 02/23/21 08:29 Potassium Chloride Er 20 Meq Tab.Er.Prt PO 40 meq DAILY DONAVAN Administration Sodium Chloride 3 ml 02/23/21 00:00 02/23/21 08:31 0.9 % Sodium Chloride Flush 3 Ml Syringe IVFLUSH 3 ml QSHIFT DONAVAN Administration Home Medications Medication Instructions Recorded Confirmed Type aspirin 81 mg chewable tablet 81 mg PO DAILY 04/22/20 02/22/21 History insulin aspart U-100 100 unit/mL 4 - 24 unit SUBCUT TID 04/22/20 02/22/21 History (3 mL) subcutaneous pen omeprazole 20 mg capsule,delayed 20 mg PO BID 04/22/20 02/22/21 History release spironolactone 50 mg tablet 50 mg PO DAILY 01/05/21 02/22/21 History calcium carbonate 500 mg (1,250 1 tab PO BID 02/02/21 02/22/21 History mg)-vitamin D3 125 unit tablet dexamethasone 4 mg tablet 20 mg PO WE 02/22/21 02/22/21 History duloxetine 20 mg capsule,delayed 1 cap PO DAILY 02/22/21 02/22/21 History release potassium chloride 20 mEq 40 meq PO DAILY 02/22/21 02/22/21 History tablet,extended release Allergies Allergy/AdvReac Type Severity Reaction Status Date / Time codeine [CODEINE] Allergy Intermediate NAUSEA & Verified 02/22/21 14:30 VOMITING, vomiting lisinopril [LISINOPRIL] Allergy Intermediate COUGH, Verified 02/22/21 14:30 Coughing sulfamethoxazole Allergy Intermediate RASH Verified 02/22/21 14:30 [From BACTRIM] Physical Exam Vital signs: Vital Signs Temp 98 F 02/23/21 11:10 Pulse 96 02/23/21 11:10 Resp 18 02/23/21 11:10 BP 90/54 L 02/23/21 11:10 Pulse Ox 97 02/23/21 11:10 Intake & Output 02/22/21 02/23/21 02/23/21 18:59 06:59 18:59 Intake Total 1000 / 3100 2100 / 3100 50 / 50 Output Total 250 / 250 Balance 1000 / 2850 1850 / 2850 50 / 50 Urine Output (Average ml/kg/hr) 0.18 0.18 Intake: Intake, IV Amount 1000 / 3100 2100 / 3100 50 / 50 cefEPime HCl 2 gm In 0.9 % 100 / 100 50 / 50 Sodium Chloride 50 ml @ 100 mls /hr IV Q8H DONAVAN Rx#:[id number] 0.9 % Sodium Chloride 1,000 ml 1000 / 3000 2000 / 3000 @ 999 mls/hr IVCONT .Q1H1M ONE Rx#:[id number] Output: Output, Urine Amount (Catheter) 250 / 250 Female External 250 / 250 Other: Last Bowel Movement 02/22/21 Weight 103.873 kg 115 kg 115 kg [place] Weight in Grams [id number] Weight 115 kg - Constitutional Present: mild distress - Routine HEENT Exam Head: Present: normal inspection ENT: Present: mucous membranes moist - Routine Neck Exam Present: supple Hem/Onc Consult Result - Labs CBC & Chem 7: 02/23/21 06:16 02/23/21 06:16 Labs: Short CBC 02/22/21 02/23/21 Range/Units 15:46 06:16 WBC 2.0 L 1.0 L (4.8-10.8) X10*3/uL Hgb 8.6 L 7.1 L (12.0-16.0) g/dl Hct 26.3 L 22.1 L (37-47) % Plt Count 82 L 56 L D (160-400) X10*3/uL BMP 02/22/21 02/23/21 15:46 06:16 Sodium 136 138 Potassium 4.0 3.8 Chloride 112 H 115 H Carbon Dioxide 20 L 21 L BUN 11 11 Creatinine 0.98 0.89 Calcium 6.7 L 6.1 L D Liver Function 02/22/21 Range/Units 15:38 Total Bilirubin 1.5 H (0.0-1.0) mg/dL Direct Bilirubin 0.5 (0.0-0.5) mg/dL AST 11 (5-31) U/L ALT 17 (0-31) U/L Alkaline Phosphatase 53 (39-117) U/L Albumin 1.6 L (3.5-5.0) g/dL Urine 02/23/21 Range/Units 06:47 Urine Color YELLOW Urine Appearance HAZY Urine pH 6.0 (5.0-8.0) Ur Specific [place] 1.025 (1.005-1.025) Urine Protein 1+ H (NEG-TRACE) MG/DL Urine Glucose (UA) NEG (NEG) MG/DL Assessment and Plan (1) Multiple myeloma Status: Acute Qualifiers: This is a pleasant 75-year-old lady with a history of her diabetes, recent COVID infection back in June, complicated by interstitial pancreatitis, then presented with hypercalcemia. She had an SIEP done back in 2018: IgG: To 637, IgA: 66, IgM: 67. IgG kappa monoclonal band present. Urine IEP: Showed free light chains. Given the clinical picture, most likely she has multiple myeloma. I proceeded with further evaluation. I rechecked SIEP: IgG 4482, IgA 21, IgM 27. IgG kappa monoclonal band present. Free light chains present. Serum free light chain ratio: 586.05. Checked beta 2 microglobulin level for prognosis. (22.2.) l checked skeletal survey on10/06: No fracture or definite bony lesion. Osteopenia versus lucency in the right medial femoral shaft just inferior to the lesser trochanter and left distal femoral shaft. Left hip and knee replacements. Degenerative changes of the spine. Bone marrow exam from 10/14: Consistent with plasma cell myeloma. Plasma cells are 60-70% of marrow cellularity. Myeloma FISH panel: Dup(1q), Del (13), Del(17p), and t(4;14) were all detected.. l tried to proceed with a PET scan for further evaluation. It has been denied. Will do appear to appear. l tried to arrange for Denosumab, for hypercalcemia and multiple myeloma. However the insurance plan did not cover. I tried to do Peer to Peer, however the physician approved Zometa. Her dose came to 3.5 mg. She has been receiving it monthly.. CT scan of the right femur revealed: No fracture. No bone destruction. No focal bone lesion. No abnormal periosteal reaction. 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 Small joint effusion with suprapatellar fossa the right knee. Mild degenerative change of the right hip with joint narrowing. No soft tissue mass or focal abnormality. l arranged for RVD based regimen. She has been started on it. She is here to receive the Velcade and Zometa today. There are other regimens recommended including daratumumab/lenalidomide and Decadron. And carfilzomib/Lenalidomide and Decadron. However, this is the only regimen shown to have overall survival benefit, at this point. She complains of tenderness and swelling right upper extremity, medially around the elbow area. She has generalized anasarca. She still has nausea, has not been able to keep much down. Her IgG level her declined: On 10/06 it was 4482. On 10/23 it was 2933. Serum free light chain ratio: Was 586 in October, now down to 341. She has been tolerating the chemotherapy. She called yesterday complaining about diarrhea. Later she called that she had a fever 100.4 degree. She was advised to go to the ER. She was noted to be rather hypotensive, with blood pressure of 80 systolic. She was given IV fluid bolus and admitted. Her white count has dropped to 1. She has had low-grade fevers. She has been pancultured and started on broad-spectrum antibiotics: Cefepime 2 g IV Q 8. Hemoglobin dropped to 7.1 today. PLAN: She will be given 1 unit of packed RBC. Will start her on G-CSF, for chemotherapy-induced neutropenia, in the setting of neutropenic bacteremia. Her chemotherapy has been put on hold. Will hold her Decadron and Revlimid as well, till she recovers. Will follow her culture results, and decide about choice of antibiotics. Her calcium is low. Will replace. The plan from the discharge summary from [facility] revealed that she was supposed to have been endoscopic ultrasound for further evaluation, to assess for malignancy, in few weeks. She saw Dr. Marques's office for on , their plan is to simply observe her, for now. Thank you for this consult, I will follow, CC:
--- NOTE | 2021-02-23 11:24 | P.PNIM_ITS ---
Subjective Subjective Date of Service: 02/24/21 Interval History: Denies fever chills today, no other acute issues overnight, complaining of discomfort lower abdomen has chronic rash. Review of Systems General no headache, no dizziness, no fever chills. CVS no chest pain, no palpitation. Respiratory no cough, no sob. Gastrointestinal no nausea, no vomiting, no diarrhea since admit Physical Exam Vital Signs: Vital Signs: Last Vital Signs Temp 98 F 02/23/21 11:10 Pulse 96 02/23/21 11:10 Resp 18 02/23/21 11:10 BP 90/54 L 02/23/21 11:10 Pulse Ox 97 02/23/21 11:10 Body Mass Index 42.2 General resting comfortably in no acute distress. Neck supple, no JVD. CVS regular rate rhythm, Respiratory lungs clear to auscultation, no respiratory distress, no wheeze, no rhonchi. Gastrointestinal abdomen soft, bowel sounds audible, significant hyperemic moist rash underneath the abdominal fold. Extremities significant pitting edema. Neuro nonfocal Skin pallor Objective Data Current Medications Generic Name Dose Route Start Last Admin Trade Name Freq PRN Reason Stop Dose Admin Acetaminophen 650 mg 02/22/21 23:12 Acetaminophen 325 Mg Tablet PO Q6H PRN Pain, Mild (Pain Scale 1-3) Acyclovir 400 mg 02/23/21 09:00 02/23/21 08:31 Acyclovir 200 Mg Capsule PO 400 mg DAILY DONAVAN Administration Aspirin 81 mg 02/23/21 09:00 02/23/21 08:30 Aspirin 81 Mg Tab.Chew PO 81 mg DAILY DONAVAN Administration Atovaquone 1,500 mg 02/23/21 09:00 02/23/21 08:31 Atovaquone 750 Mg/5 Ml Oral.Susp PO 1,500 mg DAILY DONAVAN Administration Dexamethasone 20 mg 02/24/21 20:48 Dexamethasone 4 Mg Tablet PO WE DONAVAN Dextrose 25 gm 02/23/21 06:59 Dextrose 50 % 25 Gm/50 Ml Vial IVPUSH Q15M PRN per Hypoglycemia Standing Ord. Protocol Docusate Sodium 100 mg 02/22/21 23:12 Docusate Sodium 100 Mg Capsule PO DAILY PRN Constipation Duloxetine HCl 20 mg 02/23/21 09:00 02/23/21 08:30 Duloxetine Hcl 20 Mg Capsule.Dr PO 20 mg DAILY DONAVAN Administration Glucose 15 gm 02/23/21 06:59 Glucose Gel 15 Gm Gel..Gram. PO Q15M PRN per Hypoglycemia Standing Ord. Protocol Heparin Sodium (Porcine) 5,000 unit 02/23/21 00:00 02/23/21 01:02 Heparin Sodium,Porcine 5,000 Unit/Ml Vial SUBCUT 5,000 unit Q12H DONAVAN Administration Cefepime HCl 2 gm/ Sodium 50 mls @ 100 mls/hr 02/23/21 02:00 02/23/21 10:55 Chloride IV Infused Q8H DONAVAN Infusion Insulin Human Lispro 0 unit 02/23/21 07:30 02/23/21 08:04 Insulin Lispro 100 Unit/Ml 3 Ml Vial SUBCUT Not Given QIDACHS [facility] Protocol Magnesium Oxide 400 mg 02/23/21 08:30 02/23/21 08:31 Magnesium Oxide 400 Mg Tablet PO 400 mg BIDPC DONAVAN Administration Pt Own Med ( 15 each 02/24/21 09:00 02/23/21 10:24 Lenalidomide 15 Mg PO 15 each Capsule) DAILY DONAVAN Administration Omeprazole 20 mg 02/22/21 23:12 02/23/21 08:30 Omeprazole 20 Mg Capsule. PO 20 mg BID DONAVAN Administration Ondansetron HCl 4 mg 02/22/21 23:12 02/23/21 06:02 Ondansetron Hcl 4 Mg/2 Ml Vial IVPUSH 4 mg Q8H PRN Administration Nausea and Vomiting Pharmacy Consult 1 each 02/22/21 18:27 Consult Rx Perform Med Rec MISCELLANE ONCE PRN Consult order Potassium Chloride 40 meq 02/23/21 09:00 02/23/21 08:29 Potassium Chloride Er 20 Meq Tab.Er.Prt PO 40 meq DAILY DONAVAN Administration Sodium Chloride 3 ml 02/23/21 00:00 02/23/21 08:31 0.9 % Sodium Chloride Flush 3 Ml Syringe IVFLUSH 3 ml QSHIFT DONAVAN Administration Labs CBC & Chem 7: 02/24/21 05:51 02/23/21 06:16 Labs: Laboratory Results - last 24 hr 02/22/21 02/22/21 02/22/21 15:38 15:45 15:45 MCV MCH MCHC RDW Plt Count MPV Immature Gran % (Auto) Neut % (Auto) Lymph % (Auto) [place] % (Auto) Eos % (Auto) Baso % (Auto) Lymph # (Auto) [place] # (Auto) Eos # (Auto) Baso # (Auto) Abs Immat Gran (auto) Absolute Neuts (auto) Absolute Nucleated RBC Nucleated RBC % (auto) Neutrophils % (Manual) Band Neutrophils % Lymphocytes % (Manual) Monocytes % (Manual) Eosinophils % (Manual) Abs Neuts (Manual) Lymphocytes # (Manual) Monocytes # (Manual) Dohle Bodies Platelet Estimate Plt Morphology Comment RBC Morphology Polychromasia Hypochromasia Macrocytosis [place] Cells Smear Path Review Anion Gap Estim Creat Clear Calc Estimated GFR POC Glucose Random Glucose Lactic Acid 2.4 H* Lactic Acid Fup @ 2Hr Calcium Total Bilirubin 1.5 H Direct Bilirubin 0.5 AST 11 ALT 17 Alkaline Phosphatase 53 Troponin I High Sens 13.9 D Total Protein 5.7 L Albumin 1.6 L Urine Color Urine Appearance Urine pH Ur Specific [place] Urine Protein Urine Glucose (UA) Urine Ketones Urine Blood Urine Nitrite Ur Leukocyte Esterase Urine RBC Urine WBC Ur Squamous Epith Cells Urine Bacteria Urine Mucus Coronavirus (PCR) Influenza Type A (PCR) Influenza Type B (PCR) RSV RNA Qual (PCR) 02/22/21 02/22/21 02/22/21 15:45 15:46 15:46 MCV 104.8 H MCH 34.3 H MCHC 32.7 RDW 16.4 H Plt Count 82 L MPV 12.3 Immature Gran % (Auto) Cancelled Neut % (Auto) Cancelled Lymph % (Auto) Cancelled [place] % (Auto) Cancelled Eos % (Auto) Cancelled Baso % (Auto) Cancelled Lymph # (Auto) Cancelled [place] # (Auto) Cancelled Eos # (Auto) Cancelled Baso # (Auto) Cancelled Abs Immat Gran (auto) Cancelled Absolute Neuts (auto) Cancelled Absolute Nucleated RBC 0.000 Nucleated RBC % (auto) 0.0 Neutrophils % (Manual) 67 Band Neutrophils % 7 H Lymphocytes % (Manual) 22 Monocytes % (Manual) 4 Eosinophils % (Manual) Abs Neuts (Manual) 1.5 L Lymphocytes # (Manual) 0.4 L Monocytes # (Manual) 0.1 Dohle Bodies PRESENT Platelet Estimate DECREASED Plt Morphology Comment NORMAL RBC Morphology NOTED Polychromasia 1+ (0-2) Hypochromasia Macrocytosis [place] Cells 1+ (0-2) Smear Path Review Cancelled Anion Gap 8 L Estim Creat Clear Calc 60.2 Estimated GFR 55 POC Glucose Random Glucose 154 H D Lactic Acid Lactic Acid Fup @ 2Hr Calcium 6.7 L Total Bilirubin Direct Bilirubin AST ALT Alkaline Phosphatase Troponin I High Sens Total Protein Albumin Urine Color Urine Appearance Urine pH Ur Specific [place] Urine Protein Urine Glucose (UA) Urine Ketones Urine Blood Urine Nitrite Ur Leukocyte Esterase Urine RBC Urine WBC Ur Squamous Epith Cells Urine Bacteria Urine Mucus Coronavirus (PCR) NEGATIVE Influenza Type A (PCR) NEGATIVE Influenza Type B (PCR) NEGATIVE RSV RNA Qual (PCR) NEGATIVE 02/22/21 02/23/21 02/23/21 17:58 01:03 06:16 MCV 105.7 H MCH 34.0 H MCHC 32.1 RDW 16.4 H Plt Count 56 L D MPV 12.9 H Immature Gran % (Auto) Cancelled Neut % (Auto) Cancelled Lymph % (Auto) Cancelled [place] % (Auto) Cancelled Eos % (Auto) Cancelled Baso % (Auto) Cancelled Lymph # (Auto) Cancelled [place] # (Auto) Cancelled Eos # (Auto) Cancelled Baso # (Auto) Cancelled Abs Immat Gran (auto) Cancelled Absolute Neuts (auto) Cancelled Absolute Nucleated RBC 0.000 Nucleated RBC % (auto) 0.0 Neutrophils % (Manual) 82 H Band Neutrophils % 4 Lymphocytes % (Manual) 11 L Monocytes % (Manual) 2 Eosinophils % (Manual) 1 Abs Neuts (Manual) 0.9 L Lymphocytes # (Manual) 0.1 L Monocytes # (Manual) Dohle Bodies Platelet Estimate DECREASED Plt Morphology Comment NORMAL RBC Morphology NOTED Polychromasia Hypochromasia 2+ (15-30) Macrocytosis 2+ (15-30) [place] Cells 2+ (3-5) Smear Path Review Anion Gap Estim Creat Clear Calc Estimated GFR POC Glucose 106 Random Glucose Lactic Acid Lactic Acid Fup @ 2Hr 1.6 Calcium Total Bilirubin Direct Bilirubin AST ALT Alkaline Phosphatase Troponin I High Sens Total Protein Albumin Urine Color Urine Appearance Urine pH Ur Specific [place] Urine Protein Urine Glucose (UA) Urine Ketones Urine Blood Urine Nitrite Ur Leukocyte Esterase Urine RBC Urine WBC Ur Squamous Epith Cells Urine Bacteria Urine Mucus Coronavirus (PCR) Influenza Type A (PCR) Influenza Type B (PCR) RSV RNA Qual (PCR) 02/23/21 02/23/21 02/23/21 06:16 06:47 07:19 MCV MCH MCHC RDW Plt Count MPV Immature Gran % (Auto) Neut % (Auto) Lymph % (Auto) [place] % (Auto) Eos % (Auto) Baso % (Auto) Lymph # (Auto) [place] # (Auto) Eos # (Auto) Baso # (Auto) Abs Immat Gran (auto) Absolute Neuts (auto) Absolute Nucleated RBC Nucleated RBC % (auto) Neutrophils % (Manual) Band Neutrophils % Lymphocytes % (Manual) Monocytes % (Manual) Eosinophils % (Manual) Abs Neuts (Manual) Lymphocytes # (Manual) Monocytes # (Manual) Dohle Bodies Platelet Estimate Plt Morphology Comment RBC Morphology Polychromasia Hypochromasia Macrocytosis [place] Cells Smear Path Review Anion Gap 6 L Estim Creat Clear Calc 70.2 Estimated GFR > 60 POC Glucose 104 Random Glucose 101 Lactic Acid Lactic Acid Fup @ 2Hr Calcium 6.1 L D Total Bilirubin Direct Bilirubin AST ALT Alkaline Phosphatase Troponin I High Sens Total Protein Albumin Urine Color YELLOW Urine Appearance HAZY Urine pH 6.0 Ur Specific [place] 1.025 Urine Protein 1+ H Urine Glucose (UA) NEG Urine Ketones NEG Urine Blood NEG Urine Nitrite NEG Ur Leukocyte Esterase NEG Urine RBC 0-2 Urine WBC 0-2 Ur Squamous Epith Cells 1+ Urine Bacteria 1+ Urine Mucus 1+ Coronavirus (PCR) Influenza Type A (PCR) Influenza Type B (PCR) RSV RNA Qual (PCR) 02/23/21 11:08 MCV MCH MCHC RDW Plt Count MPV Immature Gran % (Auto) Neut % (Auto) Lymph % (Auto) [place] % (Auto) Eos % (Auto) Baso % (Auto) Lymph # (Auto) [place] # (Auto) Eos # (Auto) Baso # (Auto) Abs Immat Gran (auto) Absolute Neuts (auto) Absolute Nucleated RBC Nucleated RBC % (auto) Neutrophils % (Manual) Band Neutrophils % Lymphocytes % (Manual) Monocytes % (Manual) Eosinophils % (Manual) Abs Neuts (Manual) Lymphocytes # (Manual) Monocytes # (Manual) Dohle Bodies Platelet Estimate Plt Morphology Comment RBC Morphology Polychromasia Hypochromasia Macrocytosis [place] Cells Smear Path Review Anion Gap Estim Creat Clear Calc Estimated GFR POC Glucose 151 H Random Glucose Lactic Acid Lactic Acid Fup @ 2Hr Calcium Total Bilirubin Direct Bilirubin AST ALT Alkaline Phosphatase Troponin I High Sens Total Protein Albumin Urine Color Urine Appearance Urine pH Ur Specific [place] Urine Protein Urine Glucose (UA) Urine Ketones Urine Blood Urine Nitrite Ur Leukocyte Esterase Urine RBC Urine WBC Ur Squamous Epith Cells Urine Bacteria Urine Mucus Coronavirus (PCR) Influenza Type A (PCR) Influenza Type B (PCR) RSV RNA Qual (PCR) Assessment and Plan (1) Neutropenia: Status: Acute (2) Diarrhea: Status: Acute (3) Neutropenic fever: Status: Acute (4) Multiple myeloma: Status: Acute Assessment and Plan: 75-year-old female with multiple myeloma undergoing treatment at this time presents with to the hospital with complaints of fever and diarrhea. # neutropenic fever - no recurrent fever since admission, no further diarrhea, WBC drop down to 1000 - UA negative, chest x-ray negative, likely infection due to bacterial translocation, will continue IV cefepime 2 g q.8 hours, follow blood culture Case discussed with Dr. Raman, will hold Decadron and revlimid due to diarrhea Will give Neupogen. # Acute on chronic anemia due to underlying myeloma and chemotherapy Will transfuse 1 unit and follow CBC # hypotension - due to dehydration and diarrhea, follow BP hold further IV fluids since will be receiving blood transfusion, hold diuretics # [place]ma intertrigo will apply nystatin powder and dry dressing # diarrhea - likely due to chemotherapy, stool cultures pending no further bout of diarrhea continue supportive care , hold chemo therapy # diabetes - blood sugars stable continue low-dose sliding scale and diabetic diet DVT prophylaxis:? Heparin subQ Quality Stroke Does the patient have a stroke diagnosis?: No VTE Prior VTE?: No VTE Risk Level:: Medical - moderate - high VTE Device Contraindication: Treatment Not Indicated VTE Drug Contraindication: N/A - Med Ordered
[2021-02-23] MEDS: Insulin Lispro 100 UNIT/ML 3 ML VIAL SUBCUT ×2 (12:37→21:03)
[2021-02-23 16:11] LABS: Glucose, Whole Blood 142 mg/dL (60-115)
[2021-02-23 20:26] LABS: Glucose, Whole Blood 196 mg/dL (60-115)
[2021-02-24] VITALS: BP 119/66; PULSE 96; RESP 18; TEMP 37; O2SAT 92
[2021-02-24] MEDS: 0.9 % Sodium Chloride Flush 3 ML SYRINGE IVFLUSH ×4 (00:08→20:52)
[2021-02-24] MEDS: Heparin Sodium,Porcine 5,000 UNIT/ML VIAL 5000 UNIT SUBCUT (00:10)
[2021-02-24] MEDS: cefEPime HCl 2 GM in 0.9 % Sodium Chloride 50 ML IV ×3 (02:28→18:11)
[2021-02-24 04:00] VITALS: BP 108/54; PULSE 86; RESP 20; TEMP 36.6; O2SAT 99
[2021-02-24 06:56] LABS: Hematocrit 24.6 % (37-47); Mean Corpuscular HGB Conc 32.5 g/dl (31.0-35.0); Mean Corpuscular Hemoglobin 32.9 pg (27.0-33.0); Mean Corpuscular Volume 101.2 fL (80-98); Red Blood Count 2.43 X10*6/uL (4.20-5.50); Red Cell Distribution Width 18.6 % (11.0-16.0)
[2021-02-24 07:00] VITALS: BP 108/60; PULSE 89; RESP 20; TEMP 36.1; O2SAT 100
[2021-02-24 07:00] LABS: Platelet Count 49 X10*3/uL (160-400); White Blood Count 1.6 X10*3/uL (4.8-10.8)
[2021-02-24 07:10] LABS: Glucose, Whole Blood 81 mg/dL (60-115)
[2021-02-24 07:30] LABS: Band Neutrophils Percent 3 % (3-5); Basophils Percent Manual 3 % (0-1); Eosinophils Percent Manual 2 % (0-4); Lymphocytes Absolute Manual 0.2 X10*3/uL (0.6-4.8); Lymphocytes Percent Manual 10 % (20-40); Monocytes Percent Manual 3 % (2-11); Neutrophils Absolute Manual 1.3 X10*3/uL (2.2-7.9); Neutrophils Percent Manual 79 % (45-73)
[2021-02-24 07:33] LABS: Acanthocytes 1+ (0-2) /OIF; Burr Cells 2+ (3-5) /OIF; Macrocytosis 2+ (15-30) /OIF; Ovalocytes 1+ (5-14) /OIF; Platelet Estimate DECREASED (NORMAL); Polychromasia 2+ (3-5) /OIF; RBC Morphology NOTED
[2021-02-24 07:34] LABS: Platelet Morphology Comment NORMAL
[2021-02-24] MEDS: Acyclovir 200 MG CAPSULE 400 MG PO (08:51)
[2021-02-24] MEDS: Magnesium Oxide 400 MG TABLET PO ×2 (08:53→18:08)
[2021-02-24] MEDS: Aspirin 81 MG TAB.CHEW PO (08:53)
[2021-02-24] MEDS: Potassium Chloride ER 20 MEQ TAB.ER.PRT 40 MEQ PO (08:54)
[2021-02-24] MEDS: Atovaquone 750 MG/5 ML ORAL.SUSP 1500 MG PO (08:54)
[2021-02-24] MEDS: Omeprazole 20 MG CAPSULE.DR PO ×2 (08:54→20:52)
[2021-02-24] MEDS: DULoxetine HCl 20 MG CAPSULE.DR PO (08:59)
[2021-02-24] MEDS: ondansetron HCL 4 MG/2 ML VIAL IVPUSH ×2 (09:07→16:40)
[2021-02-24 11:11] VITALS: BP 111/54; PULSE 93; RESP 20; TEMP 36.6; O2SAT 99
[2021-02-24 11:20] LABS: Glucose, Whole Blood 105 mg/dL (60-115)
--- NOTE | 2021-02-24 12:20 | MHC.CM.PN ---
Female 75 DX Neutropenic fever No discharge planned today. Blood cultures are pending. CM will follow.
--- NOTE | 2021-02-24 12:47 | P.PNIM_ITS ---
Subjective Subjective Date of Service: 02/24/21 Interval History: Complaining of nausea after breakfast, improved with antiemetic, no other acute issues no further bout of diarrhea. Review of Systems General no headache, no dizziness, no fever chills.? CVS no chest pain, no palpitation.? Respiratory no cough, no sob.? Gastrointestinal no nausea, no vomiting, no diarrhea Physical Exam 2 Vital Signs: Vital Signs: Last Vital Signs Temp 98 F 02/24/21 11:11 Pulse 93 02/24/21 11:11 Resp 20 02/24/21 11:11 BP 111/54 L 02/24/21 11:11 Pulse Ox 99 02/24/21 11:11 Body Mass Index 42.2 General resting comfortably in no acute distress.? Neck? supple, no JVD. CVS? regular rate rhythm, Respiratory lungs clear to auscultation, no respiratory distress, no wheeze, no rhonchi. Gastrointestinal abdomen soft, bowel sounds audible, significant hyperemic moist rash underneath abdominal fold. Extremities significant b/l pitting edema. Neuro nonfocal Skin pallor Objective Data Current Medications Generic Name Dose Route Start Last Admin Trade Name Freq PRN Reason Stop Dose Admin Acetaminophen 650 mg 02/22/21 23:12 Acetaminophen 325 Mg Tablet PO Q6H PRN Pain, Mild (Pain Scale 1-3) Acyclovir 400 mg 02/23/21 09:00 02/24/21 08:51 Acyclovir 200 Mg Capsule PO 400 mg DAILY DONAVAN Administration Aspirin 81 mg 02/23/21 09:00 02/24/21 08:53 Aspirin 81 Mg Tab.Chew PO 81 mg DAILY DONAVAN Administration Atovaquone 1,500 mg 02/23/21 09:00 02/24/21 08:54 Atovaquone 750 Mg/5 Ml Oral.Susp PO 1,500 mg DAILY DONAVAN Administration Dextrose 25 gm 02/23/21 06:59 Dextrose 50 % 25 Gm/50 Ml Vial IVPUSH Q15M PRN per Hypoglycemia Standing Ord. Protocol Docusate Sodium 100 mg 02/22/21 23:12 Docusate Sodium 100 Mg Capsule PO DAILY PRN Constipation Duloxetine HCl 20 mg 02/23/21 09:00 02/24/21 08:59 Duloxetine Hcl 20 Mg Capsule.Dr PO 20 mg DAILY DONAVAN Administration Glucose 15 gm 02/23/21 06:59 Glucose Gel 15 Gm Gel..Gram. PO Q15M PRN per Hypoglycemia Standing Ord. Protocol Cefepime HCl 2 gm/ Sodium 50 mls @ 100 mls/hr 02/23/21 02:00 02/24/21 09:56 Chloride IV Infused Q8H [facility] Infusion Insulin Human Lispro 0 unit 02/23/21 07:30 02/24/21 08:23 Insulin Lispro 100 Unit/Ml 3 Ml Vial SUBCUT Not Given QIDACHS [facility] Protocol Magnesium Oxide 400 mg 02/23/21 08:30 02/24/21 08:53 Magnesium Oxide 400 Mg Tablet PO 400 mg BIDPC [facility] Administration Nystatin 1 appl 02/23/21 21:00 02/23/21 21:08 Nystatin Powder 15 Gm Bottle TOPICAL Not Given BID [facility] Protocol Omeprazole 20 mg 02/22/21 23:12 02/24/21 08:54 Omeprazole 20 Mg Capsule.Dr PO 20 mg BID [facility] Administration Ondansetron HCl 4 mg 02/22/21 23:12 02/24/21 09:07 Ondansetron Hcl 4 Mg/2 Ml Vial IVPUSH 4 mg Q8H PRN Administration Nausea and Vomiting Pharmacy Consult 1 each 02/22/21 18:27 Consult Rx Perform Med Rec MISCELLANE ONCE PRN Consult order Potassium Chloride 40 meq 02/23/21 09:00 02/24/21 08:54 Potassium Chloride Er 20 Meq Tab.Er.Prt PO 40 meq DAILY [facility] Administration Sodium Chloride 3 ml 02/23/21 00:00 02/24/21 08:51 0.9 % Sodium Chloride Flush 3 Ml Syringe IVFLUSH 3 ml QSHIFT [facility] Administration Labs CBC & Chem 7: 02/24/21 05:51 02/23/21 06:16 Labs: Laboratory Results - last 24 hr 02/23/21 02/23/21 02/23/21 11:48 16:07 17:30 MCV MCH MCHC RDW Plt Count MPV Immature Gran % (Auto) Neut % (Auto) Lymph % (Auto) [place] % (Auto) Eos % (Auto) Baso % (Auto) Lymph # (Auto) [place] # (Auto) Eos # (Auto) Baso # (Auto) Abs Immat Gran (auto) Absolute Neuts (auto) Absolute Nucleated RBC Nucleated RBC % (auto) Neutrophils % (Manual) Band Neutrophils % Lymphocytes % (Manual) Monocytes % (Manual) Eosinophils % (Manual) Basophils % (Manual) Abs Neuts (Manual) Lymphocytes # (Manual) Platelet Estimate Plt Morphology Comment RBC Morphology Polychromasia Macrocytosis Ovalocytes [place] Cells Acanthocytes (Spur) POC Glucose 142 H C. difficile Tox B Gene TNP Blood Type O Positive Antibody Screen NEGATIVE Crossmatch See Detail 02/23/21 02/24/21 02/24/21 20:22 05:51 07:00 MCV 101.2 H MCH 32.9 MCHC 32.5 RDW 18.6 H Plt Count 49 L MPV 13.0 H Immature Gran % (Auto) Cancelled Neut % (Auto) Cancelled Lymph % (Auto) Cancelled [place] % (Auto) Cancelled Eos % (Auto) Cancelled Baso % (Auto) Cancelled Lymph # (Auto) Cancelled [place] # (Auto) Cancelled Eos # (Auto) Cancelled Baso # (Auto) Cancelled Abs Immat Gran (auto) Cancelled Absolute Neuts (auto) Cancelled Absolute Nucleated RBC 0.000 Nucleated RBC % (auto) 0.0 Neutrophils % (Manual) 79 H Band Neutrophils % 3 Lymphocytes % (Manual) 10 L Monocytes % (Manual) 3 Eosinophils % (Manual) 2 Basophils % (Manual) 3 H Abs Neuts (Manual) 1.3 L Lymphocytes # (Manual) 0.2 L Platelet Estimate DECREASED Plt Morphology Comment NORMAL RBC Morphology NOTED Polychromasia 2+ (3-5) Macrocytosis 2+ (15-30) Ovalocytes 1+ (5-14) [place] Cells 2+ (3-5) Acanthocytes ([place]) 1+ (0-2) POC Glucose 196 H 81 C. difficile Tox B Gene Blood Type Antibody Screen Crossmatch 02/24/21 11:10 MCV MCH MCHC RDW Plt Count MPV Immature Gran % (Auto) Neut % (Auto) Lymph % (Auto) [place] % (Auto) Eos % (Auto) Baso % (Auto) Lymph # (Auto) [place] # (Auto) Eos # (Auto) Baso # (Auto) Abs Immat Gran (auto) Absolute Neuts (auto) Absolute Nucleated RBC Nucleated RBC % (auto) Neutrophils % (Manual) Band Neutrophils % Lymphocytes % (Manual) Monocytes % (Manual) Eosinophils % (Manual) Basophils % (Manual) Abs Neuts (Manual) Lymphocytes # (Manual) Platelet Estimate Plt Morphology Comment RBC Morphology Polychromasia Macrocytosis Ovalocytes [place] Cells Acanthocytes (Sp[place]) POC Glucose 105 C. difficile Tox B Gene Blood Type Antibody Screen Crossmatch Microbiology Microbiology Results: Microbiology 02/22/21 15:38 Blood Culture - Preliminary Blood - Venous No growth after 24 hours. 02/22/21 15:53 Blood Culture - Final Blood - Venous Coag negative Staphylococcus 02/23/21 17:30 Stool Culture - Preliminary Stool Normal so far. Vibrio Culture - Preliminary Culture in progress. Assessment and Plan (1) Neutropenic fever: Status: Acute (2) Multiple myeloma: Status: Acute (3) Gram-positive bacteremia: Status: Acute Assessment and Plan: 75-year-old female with multiple myeloma undergoing treatment at this time presents with to the hospital with complaints of fever and diarrhea. # neutropenic fever - no recurrent fever since admission, no further diarrhea, WBC improved with Granix to 1.6,000 - UA negative, chest x-ray negative, likely infection due to bacterial tra nslocation, continue IV cefepime 2 g q.8 hours day 2, blood culture 07/18 pos for GPC will add IV Vanco Follow final blood culture ? will hold Decadron and revlimid due to diarrhea. ? # Acute on chronic anemia due to underlying myeloma and chemotherapy ?? s/p 1 unit of PRBC hct improved # hypotension - due to dehydration and diarrhea, BP improved with IV fluid # [place] intertrigo continue nystatin powder and dry dressing # diarrhea - likely due to chemotherapy, stool cultures no growth, no further bout of diarrhea, continue supportive care , hold chemo therapy # diabetes - blood sugars stable continue low-dose sliding scale and diabetic diet DVT prophylaxis:? DC Heparin subQ due to low platelets and place on compression boots Quality Stroke Does the patient have a stroke diagnosis?: No VTE Prior VTE?: No VTE Risk Level:: Medical - moderate - high VTE Device Contraindication: Treatment Not Indicated VTE Drug Contraindication: N/A - Med Ordered
[2021-02-24] MEDS: vancomycin HCL 1,500 MG in 0.9 % Sodium Chloride 500 ML 333.33 MG IV (14:43)
[2021-02-24 15:05] VITALS: BP 102/56; PULSE 98; RESP 18; TEMP 36.6; O2SAT 99
[2021-02-24 18:11] LABS: Glucose, Whole Blood 132 mg/dL (60-115)
[2021-02-24 19:29] VITALS: BP 97/54; PULSE 94; RESP 18; TEMP 36.7; O2SAT 98
[2021-02-24 20:13] LABS: Glucose, Whole Blood 165 mg/dL (60-115)
[2021-02-24] MEDS: Nystatin Powder 15 GM BOTTLE 1 APPL TOPICAL (20:52)
[2021-02-25] VITALS: BP 104/60; PULSE 92; RESP 15; TEMP 36.6; O2SAT 100
[2021-02-25] MEDS: cefEPime HCl 2 GM in 0.9 % Sodium Chloride 50 ML IV ×2 (01:56→10:00)
[2021-02-25 03:45] VITALS: BP 94/54; PULSE 88; RESP 17; TEMP 36.4; O2SAT 99
[2021-02-25 06:52] LABS: Hematocrit 24.3 % (37-47); Hemoglobin 7.8 g/dl (12.0-16.0); Mean Corpuscular HGB Conc 32.1 g/dl (31.0-35.0); Mean Corpuscular Hemoglobin 32.6 pg (27.0-33.0); Mean Corpuscular Volume 101.7 fL (80-98); Mean Platelet Volume 12.6 fL (9.4-12.3); Red Blood Count 2.39 X10*6/uL (4.20-5.50); Red Cell Distribution Width 18.7 % (11.0-16.0)
[2021-02-25 06:53] LABS: Platelet Count 49 X10*3/uL (160-400); White Blood Count 1.5 X10*3/uL (4.8-10.8)
[2021-02-25 07:07] VITALS: BP 102/57; PULSE 86; RESP 20; TEMP 36.6; O2SAT 100
[2021-02-25 07:22] LABS: Band Neutrophils Percent 5 % (3-5); Eosinophils Absolute Manual 0.1 X10*3/UL (0.0-0.8); Eosinophils Percent Manual 6 % (0-4); Lymphocytes Absolute Manual 0.3 X10*3/uL (0.6-4.8); Lymphocytes Percent Manual 23 % (20-40); Monocytes Absolute Manual 0.1 X10*3/uL (0.0-1.2); Monocytes Percent Manual 4 % (2-11); Neutrophils Percent Manual 62 % (45-73)
[2021-02-25 07:24] LABS: Burr Cells 2+ (3-5) /OIF; Hypochromasia 1+ (5-14) /OIF; Macrocytosis 1+ (5-14) /OIF; Platelet Estimate DECREASED (NORMAL); Platelet Morphology Comment NORMAL; RBC Morphology NOTED
[2021-02-25 07:27] LABS: Glucose, Whole Blood 99 mg/dL (60-115)
[2021-02-25] MEDS: ondansetron HCL 4 MG/2 ML VIAL IVPUSH ×2 (08:16→16:18)
[2021-02-25] MEDS: Magnesium Oxide 400 MG TABLET PO ×2 (08:21→16:18)
[2021-02-25] MEDS: Acyclovir 200 MG CAPSULE 400 MG PO (08:21)
[2021-02-25] MEDS: Potassium Chloride ER 20 MEQ TAB.ER.PRT 40 MEQ PO (08:21)
[2021-02-25] MEDS: Atovaquone 750 MG/5 ML ORAL.SUSP 1500 MG PO (08:21)
[2021-02-25] MEDS: DULoxetine HCl 20 MG CAPSULE.DR PO (08:21)
[2021-02-25] MEDS: 0.9 % Sodium Chloride Flush 3 ML SYRINGE IVFLUSH ×3 (08:21→20:03)
[2021-02-25] MEDS: Omeprazole 20 MG CAPSULE.DR PO ×2 (08:21→20:03)
[2021-02-25] MEDS: Aspirin 81 MG TAB.CHEW PO (08:21)
[2021-02-25] MEDS: Nystatin Powder 15 GM BOTTLE 1 APPL TOPICAL ×2 (08:22→20:04)
[2021-02-25 09:30] LABS: Anion Gap 6 (12-20); Blood Urea Nitrogen 12 mg/dL (9-16); Calcium 6.2 mg/dL (8.4-10.2); Carbon Dioxide 20 mmol/L (22-29); Chloride 115 mmol/L (96-108); Creatinine Clr Calc Pharmacy 68.6; Estimated Glomerular Filt Rate > 60; Glucose Random 100 mg/dL (60-115); Potassium 3.5 mmol/L (3.3-5.1); Sodium 137 mmol/L (135-145)
--- NOTE | 2021-02-25 10:57 | MHC.CLN ---
F/U PT WITH INCREASED NUTRITION RISK R/T PRESSURE INJURY AND CHEMO TREATMENT WITH POOR PO AND DIARRHEA PO INTAKE VARIABLE NOTED NAUSEA AFTER BREAKFAST 02/24 PER MD DIET RX: REGULAR-MAY BENEFIT FROM NEUTROPENIC DIET PT RECEIVING ENSURE BID AND MO TO PROMOTE WOUND HEALING SUPPLEMENTS PROVIDE 860KCALS, 45G PROTEIN MONITOR PO INTAKE CLOSELY
[2021-02-25 11:07] LABS: Glucose, Whole Blood 103 mg/dL (60-115)
[2021-02-25 11:27] VITALS: BP 103/56; PULSE 92; RESP 18; TEMP 36.4; O2SAT 96
--- NOTE | 2021-02-25 15:21 | P.PNIM_ITS ---
Subjective Subjective Date of Service: 02/25/21 Interval History: Complaining of nausea that seems to be chronic, denies abdominal pain, tolerating diet having formed stools, no recurrent fever chills. Review of Systems General no headache, no dizziness, no fever chills.? CVS no chest pain, no palpitation.? Respiratory no cough, no sob.? Gastrointestinal + nausea, no vomiting, no diarrhea Physical Exam Vital Signs: Vital Signs: Last Vital Signs Temp 97.6 F 02/25/21 11:27 Pulse 92 02/25/21 11:27 Resp 18 02/25/21 11:27 BP 103/56 L 02/25/21 11:27 Pulse Ox 96 02/25/21 11:27 Body Mass Index 42.2 ? General resting comfortably in no acute distress.? N zainab? supple, no JV D. CVS? regular ra te rhythm, Respira tory lungs clear t o auscultation, no respiratory distr ess, no wheeze, no rhonchi. Gastroin testinal abdomen s oft, bowel sounds audible, significa nt hyperemic moist rash underneath a bdominal fold. Ext remities significa nt b/l pitting kathia ma. Neuro nonfocal Skin pallor Objective Data Current Medications Generic Name Dose Route Start Last Admin Trade Name Freq PRN Reason Stop Dose Admin Acetaminophen 650 mg 02/22/21 23:12 Acetaminophen 325 Mg Tablet PO Q6H PRN Pain, Mild (Pain Scale 1-3) Acyclovir 400 mg 02/23/21 09:00 02/25/21 08:21 Acyclovir 200 Mg Capsule PO 400 mg DAILY DONAVAN Administration Aspirin 81 mg 02/23/21 09:00 02/25/21 08:21 Aspirin 81 Mg Tab.Chew PO 81 mg DAILY DONAVAN Administration Atovaquone 1,500 mg 02/23/21 09:00 02/25/21 08:21 Atovaquone 750 Mg/5 Ml Oral.Susp PO 1,500 mg DAILY DONAVAN Administration Dextrose 25 gm 02/23/21 06:59 Dextrose 50 % 25 Gm/50 Ml Vial IVPUSH Q15M PRN per Hypoglycemia Standing Ord. Protocol Docusate Sodium 100 mg 02/22/21 23:12 Docusate Sodium 100 Mg Capsule PO DAILY PRN Constipation Duloxetine HCl 20 mg 02/23/21 09:00 02/25/21 08:21 Duloxetine Hcl 20 Mg Capsule. PO 20 mg DAILY DONAVAN Administration Glucose 15 gm 02/23/21 06:59 Glucose Gel 15 Gm Gel..Gram. PO Q15M PRN per Hypoglycemia Standing Ord. Protocol Cefepime HCl 2 gm/ Sodium 50 mls @ 100 mls/hr 02/23/21 02:00 02/25/21 10:37 Chloride IV Infused Q8H DONAVAN Infusion Insulin Human Lispro 0 unit 02/23/21 07:30 02/25/21 11:10 Insulin Lispro 100 Unit/Ml 3 Ml Vial SUBCUT Not Given QIDACHS [facility] Protocol Magnesium Oxide 400 mg 02/23/21 08:30 02/25/21 08:21 Magnesium Oxide 400 Mg Tablet PO 400 mg BIDPC DONAVAN Administration Nystatin 1 appl 02/23/21 21:00 02/25/21 08:22 Nystatin Powder 15 Gm Bottle TOPICAL 1 appl BID DONAVAN Administration Protocol Omeprazole 20 mg 02/22/21 23:12 02/25/21 08:21 Omeprazole 20 Mg Capsule. PO 20 mg BID DONAVAN Administration Ondansetron HCl 4 mg 02/22/21 23:12 02/25/21 08:16 Ondansetron Hcl 4 Mg/2 Ml Vial IVPUSH 4 mg Q8H PRN Administration Nausea and Vomiting Pharmacy Consult 1 each 02/22/21 18:27 Consult Rx Perform Med Rec MISCELLANE ONCE PRN Consult order Pharmacy Consult 1 each 02/24/21 13:23 Consult Rx Vancomycin Dosing MISCELLANE DAILY PRN Consult order Potassium Chloride 40 meq 02/23/21 09:00 02/25/21 08:21 Potassium Chloride Er 20 Meq Tab.Er.Prt PO 40 meq DAILY [facility] Administration Sodium Chloride 3 ml 02/23/21 00:00 02/25/21 08:21 0.9 % Sodium Chloride Flush 3 Ml Syringe IVFLUSH 3 ml QSHIFT [facility] Administration Labs CBC & Chem 7: 02/25/21 05:21 02/25/21 08:27 Labs: Laboratory Results - last 24 hr 02/24/21 02/24/21 02/25/21 18:07 20:09 05:21 MCV 101.7 H MCH 32.6 MCHC 32.1 RDW 18.7 H Plt Count 49 L MPV 12.6 H Immature Gran % (Auto) Cancelled Neut % (Auto) Cancelled Lymph % (Auto) Cancelled Christian % (Auto) Cancelled Eos % (Auto) Cancelled Baso % (Auto) Cancelled Lymph # (Auto) Cancelled Christian # (Auto) Cancelled Eos # (Auto) Cancelled Baso # (Auto) Cancelled Abs Immat Gran (auto) Cancelled Absolute Neuts (auto) Cancelled Absolute Nucleated RBC 0.000 Nucleated RBC % (auto) 0.0 Neutrophils % (Manual) 62 Band Neutrophils % 5 Lymphocytes % (Manual) 23 Monocytes % (Manual) 4 Eosinophils % (Manual) 6 H Abs Neuts (Manual) 1.0 L Lymphocytes # (Manual) 0.3 L Monocytes # (Manual) 0.1 Eosinophils # (Manual) 0.1 Platelet Estimate DECREASED Plt Morphology Comment NORMAL RBC Morphology NOTED Hypochromasia 1+ (5-14) Macrocytosis 1+ (5-14) Latosha Cells 2+ (3-5) Anion Gap Estim Creat Clear Calc Estimated GFR POC Glucose 132 H 165 H Random Glucose Calcium 02/25/21 02/25/21 02/25/21 07:06 08:27 10:58 MCV MCH MCHC RDW Plt Count MPV Immature Gran % (Auto) Neut % (Auto) Lymph % (Auto) Christian % (Auto) Eos % (Auto) Baso % (Auto) Lymph # (Auto) Christian # (Auto) Eos # (Auto) Baso # (Auto) Abs Immat Gran (auto) Absolute Neuts (auto) Absolute Nucleated RBC Nucleated RBC % (auto) Neutrophils % (Manual) Band Neutrophils % Lymphocytes % (Manual) Monocytes % (Manual) Eosinophils % (Manual) Abs Neuts (Manual) Lymphocytes # (Manual) Monocytes # (Manual) Eosinophils # (Manual) Platelet Estimate Plt Morphology Comment RBC Morphology Hypochromasia Macrocytosis Latosha Cells Anion Gap 6 L Estim Creat Clear Calc 68.6 Estimated GFR > 60 POC Glucose 99 103 Random Glucose 100 Calcium 6.2 L Microbiology Microbiology Results: Microbiology 02/23/21 17:30 Stool Culture - Preliminary Stool Normal so far. Vibrio Culture - Preliminary Culture in progress. 02/22/21 15:38 Blood Culture - Preliminary Blood - Venous No growth after 48 hours. Assessment and Plan (1) Neutropenic fever: Status: Acute (2) Multiple myeloma: Status: Acute Assessment and Plan: 75-year-old female with multiple myeloma undergoing treatment at this time presents with to the hospital with complaints of fever and diarrhea. # neutropenic fever - no recurrent fever since admission, no further diarrhea, WBC improved with Granix to 1.5,000 - UA negative, chest x-ray negative, likely infection due to bacterial translocation, on IV cefepime 2 g q.8 hours day 3, blood culture 1/2 pos coagulase negative Staph will DC IV vanc Will change IV cefepime to by mouth Ceftin ? will hold Decadron and revlimid due to diarrhea. Possible discharge in next 24 hours ? # Acute on chronic anemia due to underlying myeloma and chemotherapy ?? s/p 1 unit of PRBC hct improved # hypotension - due to dehydration and diarrhea, BP improved and stable # Palma intertrigo continue nystatin powder and dry dressing # diarrhea - likely due to chemotherapy, stool cultures no growth, no further bout of diarrhea, continue supportive care , hold chemo therapy # diabetes - blood sugars stable continue low-dose sliding scale and diabetic diet DVT prophylaxis:? DC Heparin subQ due to low platelets and place on compression boots Quality Stroke Does the patient have a stroke diagnosis?: No VTE Prior VTE?: No VTE Risk Level:: Medical - moderate - high VTE Device Contraindication: Treatment Not Indicated VTE Drug Contraindication: N/A - Med Ordered
[2021-02-25 15:23] VITALS: BP 103/48; PULSE 89; RESP 18; TEMP 37; O2SAT 98
[2021-02-25 15:59] LABS: Glucose, Whole Blood 173 mg/dL (60-115)
[2021-02-25] MEDS: Insulin Lispro 100 UNIT/ML 3 ML VIAL SUBCUT ×2 (16:18→20:03)
[2021-02-25 19:11] VITALS: BP 94/45; PULSE 92; RESP 18; TEMP 36.6; O2SAT 97
[2021-02-25 19:55] LABS: Glucose, Whole Blood 204 mg/dL (60-115)
[2021-02-26] VITALS: BP 107/58; PULSE 85; RESP 14; TEMP 36.6; O2SAT 99
[2021-02-26 03:58] VITALS: BP 100/54; PULSE 86; RESP 14; TEMP 36.5; O2SAT 98
[2021-02-26 08:00] VITALS: BP 111/63; PULSE 82; RESP 16; TEMP 36.6; O2SAT 100
[2021-02-26 08:03] LABS: Glucose, Whole Blood 111 mg/dL (60-115)
[2021-02-26] MEDS: Potassium Chloride ER 20 MEQ TAB.ER.PRT 40 MEQ PO (08:16)
[2021-02-26] MEDS: Acyclovir 200 MG CAPSULE 400 MG PO (08:16)
[2021-02-26] MEDS: Aspirin 81 MG TAB.CHEW PO (08:17)
[2021-02-26] MEDS: Magnesium Oxide 400 MG TABLET PO (08:17)
[2021-02-26] MEDS: DULoxetine HCl 20 MG CAPSULE.DR PO (08:17)
[2021-02-26] MEDS: Atovaquone 750 MG/5 ML ORAL.SUSP 1500 MG PO (08:17)
[2021-02-26] MEDS: Omeprazole 20 MG CAPSULE.DR PO (08:17)
[2021-02-26] MEDS: 0.9 % Sodium Chloride Flush 3 ML SYRINGE IVFLUSH (08:17)
[2021-02-26] MEDS: ondansetron HCL 4 MG/2 ML VIAL IVPUSH (08:17)
[2021-02-26] MEDS: Nystatin Powder 15 GM BOTTLE 1 APPL TOPICAL (08:23)
--- NOTE | 2021-02-26 11:16 | P.DS_ITS ---
DS: Providers Provider Date of Service: 02/26/21 Date of admission: 02/22/21 20:53 Primary care physician: Iveth Cowart MD Consults: 02/22/21 23:12 Consult to Hematology / Oncology Routine Consulting Provider: Carissa Raman Reason for consultation: Neutropenic Has provider been notified: Yes DS: Diagnosis Discharge Diagnosis (1) Neutropenic fever: Status: Acute (2) Multiple myeloma: Status: Acute DS: Medications Discharge Medications Home Medications: Home Medications Medication Instructions Recorded Confirmed aspirin 81 mg chewable tablet 81 mg PO DAILY 04/22/20 02/22/21 insulin aspart U-100 100 unit/mL 4 - 24 unit SUBCUT TID 04/22/20 02/22/21 (3 mL) subcutaneous pen omeprazole 20 mg capsule,delayed 20 mg PO BID 04/22/20 02/22/21 release calcium carbonate 500 mg (1,250 1 tab PO BID 02/02/21 02/22/21 mg)-vitamin D3 125 unit tablet duloxetine 20 mg capsule,delayed 1 cap PO DAILY 02/22/21 02/22/21 release potassium chloride 20 mEq 40 meq PO DAILY 02/22/21 02/22/21 tablet,extended release Previous Rx's Medication Instructions Recorded acyclovir 400 mg tablet 400 mg PO DAILY #90 tab 10/26/20 ondansetron HCl 4 mg tablet 8 mg PO Q8H PRN #50 tab 10/26/20 (Zofran) atovaquone 750 mg/5 mL oral 1,500 mg PO DAILY #300 ml 10/29/20 suspension (Mepron) magnesium oxide 400 mg (241.3 mg 400 mg PO BIDPC #60 tab 11/26/20 magnesium) tablet cefuroxime axetil 500 mg tablet 500 mg PO Q12H #6 tab 02/26/21 spironolactone 50 mg tablet 25 mg PO DAILY #0 tab 02/26/21 DS: Summary Hospital Course Hospital Course: History of presenting illness Chief Complaint: Fever This is a 75-year-old female with past medical history of multiple myeloma currently undergoing treatment, diabetes, HTN, leukopenia, obstructive sleep apnea who presents to the hospital with fever 1 week after undergoing her chemotherapy treatment for multiple myeloma.? Patient reports that she has been having diarrhea mostly at night about 5-6 times a night for couple of weeks. she also developed a fever of 100.5 today which concerned her and caused her to come to the hospital.? She denies any cough, no shortness of breath, no urinary symptoms, no rash or skin changes, denies any abdominal pain, no vomiting.? She denies any numbness tingling or any weakness in her extremities. To have a temperature of 99.3, heart rate of 107, respiratory rate of 18, blood pressure 126/94, satting 99% on room air.? Patient's blood pressure did drop in the 90s over 50s in the ED status post resuscitation was 3 L of IV fluids with blood pressure normalizing. Labs are significant for WBC count of 2.1, hemoglobin of 8.6 both around her baseline, platelets of 82, COVID-19 negative Hospital course 75-year-old female with multiple myeloma undergoing treatment at this time pre sents with to the hospital with complaints of fever and diarrhea. # patient admitted with diagnosis of neutropenic fever, had no recurrent fever since admission, no further diarrhea, WBC improved with Granix to 1.5,000 UA negative, chest x-ray negative, likely infection due to bacterial translocation, treated with IV cefepime 2 g q.8 hours x 3 days, blood culture 1/2 pos coagulase negative Staph Since patient hemodynamically stable is being discharged home on by mouth Ceftin for total 7 day course of antibiotic, will hold Decadron and revlimid due to diarrhea.? ? # Acute on chronic anemia due to underlying myeloma and chemotherapy ?? s/p 1 unit of PRBC hct improved. # hypotension - due to dehydration and diarrhea, BP improved and stable, reduce dose of Aldactone to 25 mg daily # Palma intertrigo continue nystatin powder and dry dressing # diarrhea likely due to chemotherapy, stool cultures no growth, no further bout of diarrhea, continue supportive care , hold chemo therapy Time Spent with Patient Time attestation: Total time spent providing and/or coordinating discharge services: Discharge coordination time: Greater than 30 minutes Quality: Stroke Does the patient have a stroke diagnosis?: No Physical Exam Vital Signs: Vital Signs: Last Vital Signs Temp 97.9 F 02/26/21 08:00 Pulse 82 02/26/21 08:00 Resp 16 02/26/21 08:00 BP 111/63 02/26/21 08:00 Pulse Ox 100 02/26/21 08:00 Body Mass Index 42.2 General no acute distress. Neck supple no JVD. CVS regular rate rhythm, Respiratory lungs clear to auscultation, no respiratory distress, no wheeze, no rhonchi. Gastrointestinal abdomen soft, nontender, bowel sounds audible, no guarding , no rigidity. Extremities b/l edema. Neuro nonfocal , speech clear. Skin no rash DS: Data Data Completed and Pending Completed studies during hospitalization [Text1]: Procedures Extraction of Iliac Bone Marrow, Percutaneous Approach, Diagnostic (10/09/20) Transfusion of Nonautologous Red Blood Cells into Peripheral Vein, Percutaneous Approach (01/09/21) Labs on day of discharge: Laboratory Results - last 24 hr 02/23/21 02/25/21 02/25/21 17:30 15:51 19:51 POC Glucose 173 H 204 H Stl Giardia Antigen SEE NOTE 02/26/21 07:52 POC Glucose 111 Stl Giardia Antigen Preliminary micro results at discharge 02/22/21 15:38 Blood Culture - Preliminary Blood - Venous No growth after 48 hours. Discharge Plan Discharge Patient Disposition: Home, Self-Care Discharge Diagnosis: Neutropenic fever Acute on chronic anemia Hypotension Diarrhea Multiple myeloma Referrals: Christina DOWNING [Outside] - 1 Week Iveth Cowart MD [Primary Care Provider] - 1 Week Discharge Medications: New cefuroxime axetil 500 mg Tablet 500 mg PO Q12H Qty: 6 RF: 0 Continued ondansetron HCl [Zofran] 4 mg Tablet 8 mg PO Q8H PRN (Reason: Nausea And Vomiting) Qty: 50 RF: 4 acyclovir 400 mg Tablet 400 mg PO DAILY Qty: 90 RF: 4 magnesium oxide 400 mg (241.3 mg magnesium) Tablet 400 mg PO BIDPC Qty: 60 RF: 0 spironolactone 50 mg Tablet 50 mg PO DAILY RF: 0 calcium carbonate-vitamin D3 500 mg(1,250mg) -125 unit Tablet 1 tab PO BID RF: 0 atovaquone [Mepron] 750 mg/5 mL Suspension 1,500 mg PO DAILY Qty: 300 RF: 6 duloxetine 20 mg capsule,delayed release(DR/EC) 1 cap PO DAILY RF: 0 potassium chloride 20 mEq tablet extended release 40 meq PO DAILY RF: 0 aspirin 81 mg tablet,chewable 81 mg PO DAILY RF: 0 insulin aspart U-100 100 unit/mL (3 mL) insulin pen 4 - 24 unit subcut TID RF: 0 omeprazole 20 mg capsule,delayed release(DR/EC) 20 mg PO BID RF: 0 Changed spironolactone 50 mg Tablet 25 mg PO DAILY Qty: 0 RF: 0 Discontinued Revlimid 15 mg Capsule 15 mg PO DAILY Qty: 21 RF: 11 dexamethasone 4 mg tablet 20 mg PO WE RF: 0 Discharge Orders: Discharge Order (Routine); Ordered 02/26/21 Ordered By: Carlos Bacon Diet: advance to usual diet and low salt diet Activity on Discharge: As tolerated Stand Alone Forms: Patient Portal Discharge page Care Plan Goals: Take Ceftin 1 tablet twice daily for 3 more days, follow-up with Dr. Raman next week Health Concerns: Noted to have low blood pressure therefore dose of Aldactone reduced to 25 mg daily continue other medications as prescribed except hold dexamethasone and Revlimid Plan of Treatment: Outpatient follow-up with Dr. Raman next week Assessment: As above
[2021-02-26 11:52] LABS: Glucose, Whole Blood 179 mg/dL (60-115)
[2021-02-26 12:00] VITALS: BP 116/59; PULSE 98; RESP 20; O2SAT 100
[2021-02-26] MEDS: Insulin Lispro 100 UNIT/ML 3 ML VIAL SUBCUT (12:44)
[2021-02-26] MEDS: Heparin Sodium,Porcine Flush 50 UNITS/5 ML SYRINGE IVFLUSH (13:49)
== END 2021-02-26 15:14 | disposition home or self-care (01) | DRG 249 ==
LOC: HO.ED 18:34 → HO.EDOVER 21:02 → HO.IMC 21:53
PROVIDERS: Emergency Medicine; Admitting Provider Internal Medicine; Emergency Provider Emergency Medicine; PCP Internal Medicine; Visit Provider Hospitalist
DX: K52.1 Toxic gastroenteritis and colitis (principal); C90.00 Multiple myeloma not having achieved remission; D70.9 Neutropenia, unspecified; I95.9 Hypotension, unspecified; E86.0 Dehydration; D63.0 Anemia in neoplastic disease; D64.81 Anemia due to antineoplastic chemotherapy; E11.9 Type 2 diabetes mellitus without complications; G47.33 Obstructive sleep apnea (adult) (pediatric); L30.4 Erythema intertrigo; I10 Essential (primary) hypertension; Z20.822 Contact with and (suspected) exposure to COVID-19; Z87.891 Personal history of nicotine dependence; Z88.2 Allergy status to sulfonamides; Z88.5 Allergy status to narcotic agent; Z79.4 Long term (current) use of insulin; Z79.82 Long term (current) use of aspirin; Z79.899 Other long term (current) drug therapy; R50.81 Fever presenting with conditions classified elsewhere; T45.1X5A Adverse effect of antineoplastic and immunosuppressive drugs, initial encounter; Y92.9 Unspecified place or not applicable
CPT/HCPCS: 0241U; 36415; 71045; 80048; 80076; 81001; 82947; 83605; 84484; 85007; 85025; 85027; 86850; 86900; 86901; 86923; 87040; 87045; 87046; 87147; 87205; 87329; 93005; 96361; 96374; 96375; 99285; 99291; J0692; J1447; J1642; J2405; J3370; P9016

== ENCOUNTER 2021-03-02 14:27 | Inpatient (IN) | payer OTHER, SELFPAY ==
--- NOTE | ~2021-03-02 | US_ITS ---
EXAMINATION: US RETROPERITONEAL LIMITED (RENAL ONLY) CLINICAL INFORMATION: LORI. COMPARISON: CT abdomen and pelvis 01/09/2021. KUB 07/26/2020. Ultrasound abdomen limited 07/27/2015. TECHNIQUE: Real-time imaging of the kidneys. Technically limited study secondary to body habitus and mobility. FINDINGS: RIGHT KIDNEY: 10.9 x 6.1 x 4.9 cm (SAG x AP x TRV). The kidney is normal in size, contour, and echogenicity. Renal cortical thickness is normal. No calculi or focal parenchymal lesions. No hydronephrosis. LEFT KIDNEY: 9.8 x 5.8 x 5.2 cm (SAG x AP x TRV). The kidney is normal in size, contour, and echogenicity. Renal cortical thickness is normal. No calculi or focal parenchymal lesions. No hydronephrosis. US/US renal BI IMPRESSION: Unremarkable renal ultrasound.
--- NOTE | ~2021-03-02 | US_ITS ---
EXAMINATION: US VENOUS WITH DOPPLER UPPER EXTREMITY, left upper extremity CLINICAL INFORMATION: Painful swelling COMPARISON: None TECHNIQUE: Ultrasound of the upper extremity is performed using compression sonography and color and pulse Doppler flow with assessment of augmentation of flow. There is also imaging and Doppler assessment of the jugular and subclavian veins. Spectral analysis with color-flow imaging is performed. FINDINGS: Respiratory variation, normal compression, and augmented flow are noted throughout the upper extremity including the axillary, brachial, cubital, and radial and ulnar veins. There is normal flow in the internal jugular and subclavian veins. There is no visible deep or superficial thrombophlebitis. If the patient's symptoms progress, a followup ultrasound in 5 -7 days might be of value to exclude proximal propagation from a nonvisualized distal arm vein. US/US venous duplex UE LT IMPRESSION: No DVT demonstrated in the left upper extremity.
[2021-03-02 14:34] VITALS: BP 109/75; PULSE 102; RESP 18; TEMP 36.7; O2SAT 95; BMI 33.4
--- NOTE | 2021-03-02 15:16 | ED.GENADULT ---
HPI - General Adult General Chief complaint: General Medical <Junior Anthony MD - Last Filed: 03/02/21 21:14> Stated complaint: Weakness <Junior Anthony MD - Last Filed: 03/02/21 21:14> Time Seen by Provider: 03/02/21 15:16 <Junior Anthony MD - Last Filed: 03/02/21 21:14> Source: patient <Junior Anthony MD - Last Filed: 03/02/21 21:14> Mode of arrival: EMS <Junior Anthony MD - Last Filed: 03/02/21 21:14> Limitations: no limitations <Junior Anthony MD - Last Filed: 03/02/21 21:14> History of Present Illness HPI narrative: patient is getting chemo for multiple myeloma, now with diarrhea and weakness. Irritation to rectal area. WBC was too low to get chemo. Patient is 2 weeks out from chemo too weak to get up. patient with continual diarrhea <Junior Anthony MD - Last Filed: 03/02/21 21:14> Onset (ago): week(s) <Junior Anthony MD - Last Filed: 03/02/21 21:14> Severity: moderate <Junior Anthony MD - Last Filed: 03/02/21 21:14> Exacerbating factors: eating <Junior Anthony MD - Last Filed: 03/02/21 21:14> Associated symptoms: weakness <Junior Anthony MD - Last Filed: 03/02/21 21:14> Related Data Home medications: Home Medications Medication Instructions Recorded Confirmed aspirin 81 mg chewable tablet 81 mg PO DAILY 04/22/20 03/02/21 insulin aspart U-100 100 unit/mL 4 - 24 unit SUBCUT TID 04/22/20 03/02/21 (3 mL) subcutaneous pen omeprazole 20 mg capsule,delayed 20 mg PO BID 04/22/20 03/02/21 release calcium carbonate 500 mg (1,250 1 tab PO BID 02/02/21 03/02/21 mg)-vitamin D3 125 unit tablet duloxetine 20 mg capsule,delayed 1 cap PO DAILY 02/22/21 03/02/21 release potassium chloride 20 mEq 40 meq PO DAILY 02/22/21 03/02/21 tablet,extended release nystatin 100,000 unit/gram topical 1 appl TOPICAL TID 03/02/21 03/02/21 powder Previous Rx's Medication Instructions Recorded acyclovir 400 mg tablet 400 mg PO DAILY #90 tab 10/26/20 ondansetron HCl 4 mg tablet 8 mg PO Q8H PRN #50 tab 10/26/20 (Zofran) atovaquone 750 mg/5 mL oral 1,500 mg PO DAILY #300 ml 10/29/20 suspension (Mepron) magnesium oxide 400 mg (241.3 mg 400 mg PO BIDPC #60 tab 11/26/20 magnesium) tablet spironolactone 50 mg tablet 25 mg PO DAILY #0 tab 02/26/21 hydrocortisone 2.5 % topical cream 1 appl [place] DAILY PRN #100 g 03/02/21 with perineal applicator (Anusol-HC) sitz bath #1 ea 03/02/21 <Junior Anthony MD - Last Filed: 03/02/21 21:14> Allergies/adverse reactions: Allergies Allergy/AdvReac Type Severity Reaction Status Date / Time codeine [CODEINE] Allergy Intermediate NAUSEA & Verified 02/22/21 14:30 VOMITING, vomiting lisinopril [LISINOPRIL] Allergy Intermediate COUGH, Verified 02/22/21 14:30 Coughing sulfamethoxazole Allergy Intermediate RASH Verified 02/22/21 14:30 [From BACTRIM] <Junior Anthony MD - Last Filed: 03/02/21 21:14> Review of Systems Constitutional: Constitutional: Reports no additional constitutional complaints <Junior Anthony MD - Last Filed: 03/02/21 21:14> Eyes: Eyes: Reports no additional eye complaints <Junior Anthony MD - Last Filed: 03/02/21 21:14> ENT: Denies dizziness <Junior Anthony MD - Last Filed: 03/02/21 21:14> Cardiovascular: Cardiovascular: Reports no additional cardiovascular complaints <Junior Anthony MD - Last Filed: 03/02/21 21:14> Respiratory: Respiratory: Reports as per HPI <Junior Anthony MD - Last Filed: 03/02/21 21:14> Gastrointestinal: Gastrointestinal: Reports no additional gastrointestinal complaints <Junior Anthony MD - Last Filed: 03/02/21 21:14> Genitourinary: Genitourinary: Reports no additional female genitourinary complaints <Junior Anthony MD - Last Filed: 03/02/21 21:14> Musculoskeletal: Musculoskeletal: Reports no additional musculoskeletal complaints <Junior Anthony MD - Last Filed: 03/02/21 21:14> Integumentary/Breasts: Skin/Breast: Denies rash <Junior Anthony MD - Last Filed: 03/02/21 21:14> Neurologic: Reports system reviewed and no additional complaints, except as documented, Denies dizziness and Denies Sensory deficit (Neuro) <Junior Anthony MD - Last Filed: 03/02/21 21:14> Psychiatric: Psychiatric: Denies anxiety <Junior Anthony MD - Last Filed: 03/02/21 21:14> [facility] Past Medical History Medical History: Medical History Diabetes mellitus type 2, controlled, without complications Essential hypertension Hypercalcemia Hyperlipidemia, unspecified Hypoglycemia unawareness associated with type 2 diabetes mellitus Obstructive sleep apnea Pancytopenia Streptococcal pneumonia Subclinical hyperthyroidism <Junior Anthony MD - Last Filed: 03/02/21 21:14> Surgical History: Surgical History History of knee replacement History of left hip replacement <Junior Anthony MD - Last Filed: 03/02/21 21:14> Family History Family History: Family History Father No problems noted. Mother Heart disease Brother Atrial fibrillation Brother Atrial fibrillation Brother Atrial fibrillation <Junior Anthony MD - Last Filed: 03/02/21 21:14> Social History Social History: Social History Household Members: Family Household Members Other:: 3 Housing: Unknown / Unable to assess Do you presently have visiting nurse or other home services: No Alcohol intake: never Patient Tobacco Use Status: Never used Tobacco Use of substances other than those prescribed or required for medical reasons: No Advance Directives: Yes Advance Directives on File: Yes Advance Directives Date on File: 10/09/20 service: No Current occupational status: disabled <Junior Anthony MD - Last Filed: 03/02/21 21:14> Physical Exam Vital Signs: Vital Signs: Last Vital Signs Temp 97.9 F 03/02/21 22:29 Pulse 108 H 03/02/21 22:29 Resp 16 03/02/21 22:29 BP 121/60 03/02/21 22:29 Pulse Ox 98 03/02/21 22:29 Body Mass Index 33.4 <Junior Anthony MD - Last Filed: 03/02/21 21:14> Vital Signs: Last Vital Signs Temp 97.9 F 03/02/21 22:29 Pulse 108 H 03/02/21 22:29 Resp 16 03/02/21 22:29 BP 121/60 03/02/21 22:29 Pulse Ox 98 03/02/21 22:29 Body Mass Index 33.4 <Nyasia Hughes MD - Last Filed: 03/03/21 00:47> Const: Other: obese female appearing weak <Junior Anthony MD - Last Filed: 03/02/21 21:14> Orientation/consciousness: oriented to person and patient oriented x3 <Junior Anthony MD - Last Filed: 03/02/21 21:14> Limitations: no limitations <Junior Anthony MD - Last Filed: 03/02/21 21:14> HENMT: Head: Yes normal to inspection <Junior Anthony MD - Last Filed: 03/02/21 21:14> Ears: external ears normal <Junior Anthony MD - Last Filed: 03/02/21 21:14> General nose exam: Normal external nose present <Junior Anthony MD - Last Filed: 03/02/21 21:14> Mouth: Normal oral and palatal mucosa present and oropharynx normal <Junior Anthony MD - Last Filed: 03/02/21 21:14> Throat: Yes posterior oropharynx normal <Junior Anthony MD - Last Filed: 03/02/21 21:14> Eyes: General: appearance normal, both eyes and all related structures <Junior Anthony MD - Last Filed: 03/02/21 21:14> Neck: Other: supple <Junior Anthony MD - Last Filed: 03/02/21 21:14> Neck: Yes normal visual inspection <Junior Anthony MD - Last Filed: 03/02/21 21:14> Chest: Chest palpation & inspection: normal inspection of the chest <Junior Anthony MD - Last Filed: 03/02/21 21:14> Resp: Auscultation: clear to auscultation bilaterally <Junior Anthony MD - Last Filed: 03/02/21 21:14> Cardio: Jugular venous distension: no JVD <Junior Anthony MD - Last Filed: 03/02/21 21:14> Rate: regular rate <Junior Anthony MD - Last Filed: 03/02/21 21:14> Rhythm: regular rhythm <Junior Anthony MD - Last Filed: 03/02/21 21:14> Heart sounds: S1 normal heart sound present and S2 normal heart sound present <Junior Anthony MD - Last Filed: 03/02/21 21:14> GI: Inspection: Yes normal to inspection <Junior Anthony MD - Last Filed: 03/02/21 21:14> Palpation (GI): Soft to palpation, nontender and No hepatosplenomegaly present <Junior Anthony MD - Last Filed: 03/02/21 21:14> Auscultation: normal bowel sounds <Junior Anthony MD - Last Filed: 03/02/21 21:14> : General: Yes no CVA tenderness <Junior Anthony MD - Last Filed: 03/02/21 21:14> Back/Spine/Pelvis: Back: no CVA tenderness <Junior Anthony MD - Last Filed: 03/02/21 21:14> Skin: Other: pannus area appear improved from zahra, perirectal area with slight erythema <Junior Anthony MD - Last Filed: 03/02/21 21:14> Neuro: General: oriented to person and patient oriented x3 <Junior Anthony MD - Last Filed: 03/02/21 21:14> Cranial nerves: Yes CN's II-XII intact bilaterally <Junior Anthony MD - Last Filed: 03/02/21 21:14> Motor exam (neuro): 5/5 motor strength present throughout <Junior Anthony MD - Last Filed: 03/02/21 21:14> Sensory Exam: No Sensory deficit (Neuro) <Junior Anthony MD - Last Filed: 03/02/21 21:14> Extrem: General: Yes normal to inspection <Junior Anthony MD - Last Filed: 03/02/21 21:14> Psych: Appearance: grossly normal <Junior Anthony MD - Last Filed: 03/02/21 21:14> Course Reevaluation(s) Reevaluation #1: Patient still weak with BP 104 systolic, still having diarrhea, will admit <Junior Anthony MD - Last Filed: 03/02/21 21:14> Time: 18:18 <Junior Anthony MD - Last Filed: 03/02/21 21:14> Reevaluation #2: discussed with Dr. Fowler, patient too weak to go home, concerned about Cdiff <Junior Anthony MD - Last Filed: 03/02/21 21:14> Time: 20:49 <Junior Anthony MD - Last Filed: 03/02/21 21:14> Reevaluation #3: according hospitalist unchanged will get case management and cdiff still pending <Junior Anthony MD - Last Filed: 03/02/21 21:14> Time: 21:14 <Junior Anthony MD - Last Filed: 03/02/21 21:14> Medical Decision Making Lab Data Labs: Lab Results 03/02/21 03/02/21 Range/Units 15:48 17:33 Urine Color YELLOW Urine Appearance CLEAR Urine pH 5.5 (5.0-8.0) Ur Specific [place] >= 1.030 H (1.005-1.025) Urine Protein 1+ H (NEG-TRACE) MG/DL Urine Glucose (UA) 250 H (NEG) MG/DL Urine Ketones NEG (NEG) MG/DL Urine Blood TRACE (NEG) Urine Nitrite NEG (NEG) Ur Leukocyte Esterase 1+ H (NEG) Urine RBC 0-2 (0) /HPF Urine WBC 1-4 (0-4) /HPF Ur Squamous Epith Cells 1+ /LPF Urine Bacteria 1+ /LPF Urine Yeast TRACE /HPF Coronavirus (PCR) NEGATIVE (Negative) Influenza Type A (PCR) NEGATIVE (Negative) Influenza Type B (PCR) NEGATIVE (Negative) RSV RNA Qual (PCR) NEGATIVE (Negative) <Junior Anthony MD - Last Filed: 03/02/21 21:14> Lab Results 03/02/21 03/02/21 Range/Units 15:48 17:33 Urine Color YELLOW Urine Appearance CLEAR Urine pH 5.5 (5.0-8.0) Ur Specific [place] >= 1.030 H (1.005-1.025) Urine Protein 1+ H (NEG-TRACE) MG/DL Urine Glucose (UA) 250 H (NEG) MG/DL Urine Ketones NEG (NEG) MG/DL Urine Blood TRACE (NEG) Urine Nitrite NEG (NEG) Ur Leukocyte Esterase 1+ H (NEG) Urine RBC 0-2 (0) /HPF Urine WBC 1-4 (0-4) /HPF Ur Squamous Epith Cells 1+ /LPF Urine Bacteria 1+ /LPF Urine Yeast TRACE /HPF Coronavirus (PCR) NEGATIVE (Negative) Influenza Type A (PCR) NEGATIVE (Negative) Influenza Type B (PCR) NEGATIVE (Negative) RSV RNA Qual (PCR) NEGATIVE (Negative) <Nyasia Hughes MD - Last Filed: 03/03/21 00:47> Discharge Plan Discharge Clinical Impression: Neutropenia Qualifiers: Neutropenia type: secondary to cancer chemotherapy Qualified Code(s): D70.1 - Agranulocytosis secondary to cancer chemotherapy Diarrhea Qualifiers: Diarrhea type: unspecified type Qualified Code(s): R19.7 - Diarrhea, unspecified <Junior Anthony MD - Last Filed: 03/02/21 21:14> Patient Disposition: Admitted As Inpatient <Junior Anthony MD - Last Filed: 03/02/21 21:14>
[2021-03-02] MEDS: 0.9 % Sodium Chloride 1,000 ML 999 ML IVCONT ×2 (15:58→17:31)
--- NOTE | 2021-03-02 16:27 | PHA.MEDREC ---
Pharmacy Consult ? Medication Reconciliation Pharmacy has completed the medication reconciliation.
[2021-03-02 16:43] LABS: Influenza A PCR NEGATIVE (Negative); Influenza B PCR NEGATIVE (Negative); Resp Syncy Virus RNA Qual PCR NEGATIVE (Negative); SARS COV2 PCR INHOUSE NEGATIVE (Negative)
[2021-03-02 18:09] LABS: Glucose Urine UA 250 MG/DL (NEG); Leukocyte Esterase Urine 1+ (NEG); Nitrite Urine NEG (NEG); PH 5.5 (5.0-8.0); Specific Gravity - Urine >= 1.030 (1.005-1.025); UACC Culture Trigger YES; Urine Blood TRACE (NEG); Urine Ketones NEG (NEG); Urine Protein 1+ MG/DL (NEG-TRACE)
[2021-03-02 18:12] LABS: Appearance Urine CLEAR; Color Urine YELLOW
[2021-03-02 18:22] LABS: Bacteria Urine 1+ /LPF; RBC Urine 0-2 /HPF (0); Squamous Epithelial Cell Urine 1+ /LPF
--- NOTE | 2021-03-02 20:57 | PC.NURSE ---
pt transferred to hospital bed for comfort, assisted w/ urination via bedpan, repositioned and turned to R side. call light within reach, pt denies further needs at this time
[2021-03-02 22:29] VITALS: BP 121/60; PULSE 108; RESP 16; TEMP 36.6; O2SAT 98
[2021-03-03] VITALS (7 sets, daily range): BP systolic 107–121; BP diastolic 59–77; PULSE 96–100; RESP 18; TEMP 36.1–37.3; O2SAT 97–100; BMI 37.5
--- NOTE | 2021-03-03 02:37 | PC.NURSE ---
report called to accepting RN, pt stable for transport to floor, sent with all belongings
[2021-03-03 02:51] LABS: CDiff Gene PCR NEGATIVE (Negative)
--- NOTE | 2021-03-03 04:26 | PM.IMHP ---
History of Present Illness Date of Service: 03/03/21 Chief Complaint: Diarrhea, weakness 75-year-old female with history of multiple myeloma (currently obtaining chemotherapy, follows with oncology Dr. Raman), also has history of diabetes mellitus type 2 (not use long-acting insulin but does use sliding scale insulin), hypertension, hyperlipidemia, obstructive sleep apnea (not use CPAP), who presented because of diarrhea and weakness. History is from patient and from ED notes. Patient was recently hospitalized here and discharged on 02/26/2021 after being treated for neutropenic fever and diarrhea; no definitive source was found for the infection but the infection was thought to be secondary to bacterial translocation; patient received IV antibiotics and discharged on oral Ceftin for a total of 7 day course of antibiotic therapy. The patient endorses that she has diarrhea ?on and off ?since starting chemotherapy in October 2020, but for the last 4-5 days she has been having frequent ongoing diarrhea as well as weakness, nausea, slight mild abdominal pain, decreased oral intake and decreased appetite. She also notes chronic chills. She states that she finished her antibiotic course, but her worsening of symptoms occurred even before her antibiotic course was fully completed. She feels like her current symptoms are very similar to the symptoms she experienced when she was hospitalized for febrile neutropenia. Review of Systems Constitutional: Constitutional: Reports chills, Reports fatigue, Denies fever(s), Denies headache(s), Reports weakness and Denies weight loss Eyes: Eyes: Denies blurry vision, Denies change in vision, Denies diplopia and Denies loss of vision ENT: Denies dysphagia, Denies vertigo, Denies dizziness, Denies headache(s), Denies hearing loss, Denies lip swelling and Denies sore throat Cardiovascular: Cardiovascular: Denies chest pain, Denies leg edema, Denies lightheadedness, Denies palpitations and Denies dyspnea Respiratory: Respiratory: Denies no additional respiratory complaints, Denies cough, Denies dyspnea and Denies wheezing Gastrointestinal: Gastrointestinal: Reports abdominal pain, Denies coffee ground emesis, Denies constipation, Denies dysphagia, Reports diarrhea, Reports nausea and Denies vomiting Genitourinary: Genitourinary: Denies dysuria Musculoskeletal: Musculoskeletal: Denies arthralgias, Denies muscle weakness, Denies numbness and Denies tingling Integumentary/Breasts: Skin/Breast: Denies bleeding lesions, Denies new lesions and Denies rash Neurologic: Denies vertigo, Denies dizziness, Denies headache(s), Denies loss of vision, Denies numbness, Denies tingling and Reports weakness Psychiatric: Psychiatric: Denies anxiety and Denies depression Endocrine: Endocrine: Denies cold intolerance, Reports fatigue, Denies heat intolerance and Denies palpitations Hematologic/Lymphatic: Hematologic/Lymphatic: Denies easy bleeding, Denies easy bruising and Denies lymphadenopathy Allergic/Immunologic: Allergic/Immunologic: Denies lip swelling and Denies wheezing [facility] Medical History Diabetes mellitus type 2, controlled, without complications Essential hypertension Hypercalcemia Hyperlipidemia, unspecified Hypoglycemia unawareness associated with type 2 diabetes mellitus Obstructive sleep apnea Pancytopenia Streptococcal pneumonia Subclinical hyperthyroidism Family History Father No problems noted. Mother Heart disease Brother Atrial fibrillation Brother Atrial fibrillation Brother Atrial fibrillation Family history: reviewed and not pertinent Surgical History History of knee replacement History of left hip replacement Social History Household Members: Family Household Members Other:: 3 Housing: Unknown / Unable to assess Do you presently have visiting nurse or other home services: No Alcohol intake: never Patient Tobacco Use Status: Never used Tobacco Use of substances other than those prescribed or required for medical reasons: No Advance Directives: Yes Advance Directives on File: Yes Advance Directives Date on File: 10/09/20 service: No Current occupational status: disabled Meds Allergies Allergy/AdvReac Type Severity Reaction Status Date / Time codeine [CODEINE] Allergy Intermediate NAUSEA & Verified 02/22/21 14:30 VOMITING, vomiting lisinopril [LISINOPRIL] Allergy Intermediate COUGH, Verified 02/22/21 14:30 Coughing sulfamethoxazole Allergy Intermediate RASH Verified 02/22/21 14:30 [From BACTRIM] Active Medications: Current Medications Generic Name Dose Route Start Last Admin Trade Name Freq PRN Reason Stop Dose Admin Acetaminophen 650 mg 03/03/21 00:22 Acetaminophen 325 Mg Tablet PO Q6H PRN Pain, Mild (Pain Scale 1-3) Acyclovir 400 mg 03/03/21 09:00 Acyclovir 200 Mg Capsule PO DAILY [facility] Aspirin 81 mg 03/03/21 09:00 Aspirin 81 Mg Tab.Chew PO DAILY [facility] Atovaquone 1,500 mg 03/03/21 09:00 Atovaquone 750 Mg/5 Ml Oral.Susp PO DAILY [facility] Dextrose 25 gm 03/03/21 00:32 Dextrose 50 % 25 Gm/50 Ml Vial IVPUSH Q15M PRN per Hypoglycemia Standing Ord. Protocol Duloxetine HCl 20 mg 03/03/21 09:00 Duloxetine Hcl 20 Mg Capsule.Dr PO DAILY [facility] Glucose 15 gm 03/03/21 00:32 Glucose Gel 15 Gm Gel..Gram. PO Q15M PRN per Hypoglycemia Standing Ord. Protocol Hydrocortisone 1 appl 03/03/21 00:26 Hydrocortisone 1 % Ointment 28.35 Gm Tube TOPICAL DAILY PRN Hemorrhoids Protocol Sodium Chloride 1,000 mls @ 100 mls/hr 03/03/21 00:30 Ns IVCONT 03/03/21 10:29 .Q10H [facility] Insulin Human Lispro 0 unit 03/03/21 07:30 Insulin Lispro 100 Unit/Ml 3 Ml Vial SUBCUT QIDACHS [facility] Protocol Magnesium Oxide 400 mg 03/03/21 08:30 Magnesium [facility] Non-Formul[facility] Medication 1 tab 03/03/21 09:00 Calcium Carbonate-Vitamin D3 PO BID [facility] Omeprazole 20 mg 03/03/21 09:00 Omeprazole 20 Mg Capsule. PO BID [facility] Ondansetron HCl 8 mg 03/03/21 00:29 Ondansetron Odt 4 Mg Tab.Rapdis TRANSLINGU Q8H PRN Nausea And Vomiting Pharmacy Consult 1 each 03/02/21 15:27 Consult Rx Perform Med Rec MISCELLANE ONCE PRN Consult order Potassium Chloride 40 meq 03/03/21 09:00 Potassium Chloride Er 20 Meq Tab.Er.Prt PO DAILY [facility] Sodium Chloride 3 ml 03/03/21 08:00 0.9 % Sodium Chloride Flush 3 Ml Syringe IVFLUSH QSHIFT [facility] Spironolactone 25 mg 03/03/21 09:00 Spironolactone 25 Mg Tablet PO DAILY [facility] Protocol Home Medications Medication Instructions Recorded Confirmed Last Taken Type aspirin 81 mg chewable tablet 81 mg PO DAILY 04/22/20 03/02/21 02/22/21 History insulin aspart U-100 100 unit/mL 4 - 24 unit SUBCUT TID 04/22/20 03/02/21 Unknown History (3 mL) subcutaneous pen omeprazole 20 mg capsule,delayed 20 mg PO BID 04/22/20 03/02/21 02/22/21 History release calcium carbonate 500 mg (1,250 1 tab PO BID 02/02/21 03/02/21 02/22/21 History mg)-vitamin D3 125 unit tablet duloxetine 20 mg capsule,delayed 1 cap PO DAILY 02/22/21 03/02/21 02/22/21 History release potassium chloride 20 mEq 40 meq PO DAILY 02/22/21 03/02/21 02/22/21 History tablet,extended release nystatin 100,000 unit/gram topical 1 appl TOPICAL TID 03/02/21 03/02/21 Unknown History powder Physical Exam Vital Signs and Narrative: Vital Signs: Last Vital Signs Temp 97.9 F 03/02/21 22:29 Pulse 108 H 03/02/21 22:29 Resp 16 03/02/21 22:29 BP 121/60 03/02/21 22:29 Pulse Ox 98 03/02/21 22:29 Body Mass Index 33.4 Const: General: no acute distress, well developed and alert HENMT: Face and sinus: Yes normal facial exam and Yes face symmetric Mouth: Normal oral and palatal mucosa present and moist mucous membranes Throat: Yes posterior oropharynx normal and Yes tonsils normal Eyes: General: appearance normal, both eyes and all related structures Alignment and Position: alignment normal and position normal Sclerae: sclerae normal Pupils: Equal, round and reactive pupils present EOM: EOMs intact bilaterally Neck: Yes normal visual inspection, Yes full ROM and Yes no lymphadenopathy Lymphatic: no lymphadenopathy noted Resp: Effort & Inspection: normal respiratory effort and able to speak in complete sentences Auscultation: clear to auscultation bilaterally, no crackles, no rales, no rhonchi and no wheezes Cardio: Rate: regular rate Rhythm: regular rhythm Heart sounds: S1 normal heart sound present, S2 normal heart sound present, no murmurs and no rubs GI: Inspection: No distended Palpation (GI): Soft to palpation and nontender Percussion: No tympanic to percussion Auscultation: normal bowel sounds Skin: Rashes: rashes noted (Abdominal rash noted) Trauma: no lacerations or abrasions Wounds: no wounds Neuro: Cranial nerves: Yes CN's II-XII intact bilaterally, Yes Equal, round and reactive pupils present and Yes Bilaterally intact EOM present Extrem: General: Yes full ROM Right lower extremity: edema Left lower extremity: edema Psych: Appearance: grossly normal Mental Status: mental status grossly normal Speech and movement: Normal speech and movement present Affect: normal affect Thought process: Normal thought process present Results Labs Labs: Laboratory Results - last 24 hr 03/02/21 03/02/21 03/03/21 15:48 17:33 01:13 Urine Color YELLOW Urine Appearance CLEAR Urine pH 5.5 Ur Specific [place] >= 1.030 H Urine Protein 1+ H Urine Glucose (UA) 250 H Urine Ketones NEG Urine Blood TRACE Urine Nitrite NEG Ur Leukocyte Esterase 1+ H Urine RBC 0-2 Urine WBC 1-4 Ur Squamous Epith Cells 1+ Urine Bacteria 1+ Urine Yeast TRACE C. difficile Tox B Gene NEGATIVE Coronavirus (PCR) NEGATIVE Influenza Type A (PCR) NEGATIVE Influenza Type B (PCR) NEGATIVE RSV RNA Qual (PCR) NEGATIVE Assessment and Plan (1) Diarrhea: Qualifiers: Diarrhea type: unspecified type Qualified Code(s): R19.7 - Diarrhea, unspecified Status: Acute -patient endorses that she has been having transient episodes of diarrhea since she started chemotherapy in October of 2020 -however, for the past 4-5 days, she has multiple episodes daily. This did occur after she was on antibiotics -C diff lab sent (morning team to follow up on this and treat if necessary) -however, patient was also in the hospital very recently for febrile neutropenia with diarrhea, and at that time no source of infection was found -could be the case that her diarrhea unfortunately is associated with the chemotherapy -morning team can consider Oncology consult for their opinion. Otherwise, if patient is stable, patient likely can be discharged and follow-up with Oncology as an outpatient (2) Weakness: Status: Acute -likely associated with her diarrhea (see above) -status post 2 L IV fluid in the ED. Will give normal saline at 100 cc/hour x1 L overnight for rehydration -patient also notes that she has been eating less than usual, which can also cause weakness -COVID negative in the ED (3) Pancytopenia: Status: Acute -chronic, secondary to her chemotherapy (4) Essential hypertension: Status: Acute -patient with borderline low blood pressure; hold antihypertensive medications for now (likely due to diarrhea) (5) Hyperlipidemia, unspecified: Qualifiers: Hyperlipidemia type: unspecified Qualified Code(s): E78.5 - Hyperlipidemia, unspecified Status: Acute -Continue home medications (6) Obstructive sleep apnea: Status: Acute -patient endorses that she does not use CPAP (7) Multiple myeloma: Status: Chronic -patient receives chemotherapy; went for oncology appointment yesterday but was too weak and had semi low blood pressures -morning team can consider Oncology consult for their opinion regarding chemotherapy effects on patient (may be causing diarrhea, perhaps there is another chemotherapy agent that could be used) FEN: Cardiac diet CODE STATUS: DNR DISPO: Admit to Observation Quality Stroke Does the patient have a stroke diagnosis?: No VTE Prior VTE?: No VTE Risk Level:: Medical - moderate - high VTE Device Contraindication: N/A - Device Ordered VTE Drug Contraindication: Treatment Not Tolerated
[2021-03-03] MEDS: 0.9 % Sodium Chloride 1,000 ML 100 ML IVCONT (05:07)
[2021-03-03 06:36] LABS: Hematocrit 26.2 % (37-47); Hemoglobin 8.4 g/dl (12.0-16.0); Mean Corpuscular HGB Conc 32.1 g/dl (31.0-35.0); Mean Corpuscular Hemoglobin 32.7 pg (27.0-33.0); Mean Corpuscular Volume 101.9 fL (80-98); Mean Platelet Volume 12.4 fL (9.4-12.3); Red Blood Count 2.57 X10*6/uL (4.20-5.50); Red Cell Distribution Width 18.6 % (11.0-16.0)
[2021-03-03 06:50] LABS: Platelet Count 47 X10*3/uL (160-400); White Blood Count 1.7 X10*3/uL (4.8-10.8)
[2021-03-03 07:24] LABS: Blood Urea Nitrogen 11 mg/dL (9-16); Creatinine Clr Calc Pharmacy 81.9; Estimated Glomerular Filt Rate > 60; Glucose Random 100 mg/dL (60-115)
[2021-03-03 07:36] LABS: Anion Gap 4 (12-20); Carbon Dioxide 18 mmol/L (22-29); Chloride 118 mmol/L (96-108); Potassium 4.1 mmol/L (3.3-5.1); Sodium 136 mmol/L (135-145)
[2021-03-03 08:11] LABS: Glucose, Whole Blood 92 mg/dL (60-115)
[2021-03-03 08:24] LABS: Band Neutrophils Percent 4 % (3-5); Basophils Percent Manual 1 % (0-1); Lymphocytes Absolute Manual 0.3 X10*3/uL (0.6-4.8); Lymphocytes Percent Manual 20 % (20-40); Neutrophils Absolute Manual 1.3 X10*3/uL (2.2-7.9); Neutrophils Percent Manual 75 % (45-73)
[2021-03-03 08:28] LABS: Macrocytosis 1+ (5-14) /OIF; Platelet Estimate DECREASED (NORMAL); Platelet Morphology Comment NORMAL; RBC Morphology NOTED
[2021-03-03] MEDS: Lactated Ringers 1,000 ML 100 ML IVCONT ×2 (10:03→20:56)
[2021-03-03] MEDS: 0.9 % Sodium Chloride Flush 3 ML SYRINGE IVFLUSH ×2 (10:03→20:57)
[2021-03-03] MEDS: Atovaquone 750 MG/5 ML ORAL.SUSP 1500 MG PO (10:04)
[2021-03-03] MEDS: Acyclovir 200 MG CAPSULE 400 MG PO (10:05)
[2021-03-03] MEDS: Potassium Chloride ER 20 MEQ TAB.ER.PRT 40 MEQ PO (10:05)
[2021-03-03] MEDS: Magnesium Oxide 400 MG TABLET PO ×2 (10:06→17:01)
[2021-03-03] MEDS: DULoxetine HCl 20 MG CAPSULE.DR PO (10:06)
[2021-03-03] MEDS: Omeprazole 20 MG CAPSULE.DR PO ×2 (10:07→20:57)
[2021-03-03] MEDS: Aspirin 81 MG TAB.CHEW PO (10:07)
[2021-03-03] MEDS: Loperamide HCl 2 MG CAPSULE PO (10:07)
--- NOTE | 2021-03-03 10:24 | MHC.CM.PN ---
HILARY 03/03/21, EMR REVIEWED, PT ADMITTED TO OBS FOR DIARRHEA AND WEAKNESS AFTER RECENT D/C W/ORAL ABX, CM MET W/PT WHO IS A&O, PT REPORTS SHE SHOULD HAVE GONE TO REHAB AFTER LAST ADMISSION AND PT'S PREFERS [facility], REFERRAL PACED AND PT AND DTR AT BEDSIDE GIVEN PRINTOUT OF SNF'S TO DETERMINE PREFERENCES OTHER THAN [facility]. PT HAS WHEELED WALKER AT HOME AND W/C FOR TRANSPORT TO CHEMO & USES A FEW DAYS AFTER CHEMO, PT DOES NOT USE A CPAP & DENIES ANY OTHER DME, PT IS ACTIVE W/[facility]. PT VERIFIES PCP AND DTR REPORTS SHE WILL BRING IN COPY OF HCP. CHEMO: DR PRITCHETT, MISSED LAST 2 WKS D/T LABS AND NEXT SCHEDULED IS Monday03/09/21, DTR PROVIDES TRANSPORT PCP: CHARI SCHAFFER D/C PLAN: STR W/ACTION FOR BLS TRANSPORT
[2021-03-03] MEDS: ondansetron HCL 4 MG/2 ML VIAL IVPUSH (10:47)
[2021-03-03 11:39] LABS: Glucose, Whole Blood 130 mg/dL (60-115)
--- NOTE | 2021-03-03 12:18 | PC.NURSE ---
Skin assessment completed today. Patient has a small skin tear on left forearm draining clear fluid-xeroform applied covered with foam dressing. Fungal infection in abdominal folds- inter-dry applied. EPC cream applied to blanchable redness on buttocks. No other skin issues noted.
--- NOTE | 2021-03-03 12:45 | PC.NURSE ---
Addendum entered by Yanira Rangel RN 03/03/21 13:39: New order for stage 2 pu- use foam dressing over woubdres gel. Original Note: Skin assessment completed today. Patient has a Stage 2 pressure ulcer to right buttock measuring 0.4 x 0.3 x 0.2, clean and granulated-applied Woundres' gel and covered with non-woven gauze and tape. Fungal infection under abdominal rfavm-Vstlb-tha applied and a small skin tear leaking clear fluid-applied Xeroform covered with foam dressing. No other skin issues noted at this time.
--- NOTE | 2021-03-03 13:36 | MHC.CLN ---
NUTRITION CONSULT PATIENT WITH DECREASED INTAKE, DIARRHEA, AND STAGE II WOUND TO RIGHT BUTTOCKS. DX DM AND STATED THAT FOLLOWS DIABETIC DIET AT HOME AND HAS NOT BEEN HAVING RAW FRUITS AND VEGETABLES. RECOMMEND CHANGE DIET TO DIABETIC 2000 KCAL (26 KCAL/KG CMW), NEUTROPENIC PRECAUTIONS. START ENSURE 240 ML BID AND MO, ONE PACKET BID TO PROVIDE ADDITIONAL 860 KCAL AND 45 G PROTEIN FOR WOUND HEALING AND TO IMPROVE NUTRITIONAL STATUS. STARTED CHEMO 11/04 AND SHOWS SIGNIFICANT WEIGHT GAIN SINCE 10/01/20, +11.6%
[2021-03-03 16:01] LABS: Glucose, Whole Blood 116 mg/dL (60-115)
[2021-03-03 20:21] LABS: Glucose, Whole Blood 126 mg/dL (60-115)
[2021-03-04 04:00] VITALS: BP 113/62; PULSE 99; RESP 14; TEMP 36.2; O2SAT 99
[2021-03-04] MEDS: Lactated Ringers 1,000 ML 100 ML IVCONT ×2 (05:36→14:26)
[2021-03-04 07:14] LABS: Hematocrit 25.7 % (37-47); Hemoglobin 8.2 g/dl (12.0-16.0); Mean Corpuscular HGB Conc 31.9 g/dl (31.0-35.0); Mean Corpuscular Hemoglobin 32.3 pg (27.0-33.0); Mean Corpuscular Volume 101.2 fL (80-98); Mean Platelet Volume 12.5 fL (9.4-12.3); Red Blood Count 2.54 X10*6/uL (4.20-5.50); Red Cell Distribution Width 18.5 % (11.0-16.0)
[2021-03-04 07:28] LABS: Platelet Count 53 X10*3/uL (160-400)
[2021-03-04 07:44] VITALS: BP 115/58; PULSE 101; RESP 16; TEMP 36.6; O2SAT 97
[2021-03-04 07:51] LABS: Anion Gap 7 (12-20); Blood Urea Nitrogen 12 mg/dL (9-16); Calcium 6.9 mg/dL (8.4-10.2); Carbon Dioxide 18 mmol/L (22-29); Chloride 116 mmol/L (96-108); Creatinine Clr Calc Pharmacy 77.1; Estimated Glomerular Filt Rate > 60; Glucose Fasting 99 mg/dL (60-99); Potassium 4.6 mmol/L (3.3-5.1); Sodium 136 mmol/L (135-145)
[2021-03-04 07:55] LABS: Glucose, Whole Blood 94 mg/dL (60-115)
--- NOTE | 2021-03-04 09:19 | MHC.CM.PN ---
CM MET W/PT TO DISCUSS SNF PREFERNCES D/T [facility] NOT HAVING BED AVAILABILITY, PER PT A REFERRAL HAS BEEN PLACED TO [facility]. CM TO CONT TO FOLLOW FOR D/C NEEDS.
[2021-03-04] MEDS: DULoxetine HCl 20 MG CAPSULE.DR PO (09:46)
[2021-03-04] MEDS: Atovaquone 750 MG/5 ML ORAL.SUSP 1500 MG PO (09:46)
[2021-03-04] MEDS: Omeprazole 20 MG CAPSULE.DR PO ×2 (09:46→21:23)
[2021-03-04] MEDS: Aspirin 81 MG TAB.CHEW PO (09:46)
[2021-03-04] MEDS: Magnesium Oxide 400 MG TABLET PO ×2 (09:46→16:39)
[2021-03-04] MEDS: Metoclopramide HCl 10 MG/2 ML VIAL 5 MG IVPUSH (09:47)
[2021-03-04] MEDS: Acyclovir 200 MG CAPSULE 400 MG PO (09:47)
[2021-03-04] MEDS: Potassium Chloride ER 20 MEQ TAB.ER.PRT 40 MEQ PO (09:47)
--- NOTE | 2021-03-04 11:44 | P.PNIM_ITS ---
Subjective Subjective Date of Service: 03/04/21 Interval History: weak, nausea Constitutional Constitutional: Reports no additional constitutional complaints Eyes Eyes: Reports no additional eye complaints Physical Exam Vital Signs: Vital Signs: Last Vital Signs Temp 97.8 F 03/04/21 07:44 Pulse 101 H 03/04/21 07:44 Resp 16 03/04/21 07:44 BP 115/58 L 03/04/21 07:44 Pulse Ox 97 03/04/21 07:44 Body Mass Index 37.5 General: AO X 3, ill appearing Resp: diminshed CVS: S1,S2,RRR GI: soft, non tender, non distended Neuro: motor grossly intact Psych: appropriate affect Objective Data Current Medications Generic Name Dose Route Start Last Admin Trade Name Freq PRN Reason Stop Dose Admin Acetaminophen 650 mg 03/03/21 00:22 Acetaminophen 325 Mg Tablet PO Q6H PRN Pain, Mild (Pain Scale 1-3) Acyclovir 400 mg 03/03/21 09:00 03/04/21 09:47 Acyclovir 200 Mg Capsule PO 400 mg DAILY [facility] Administration Aspirin 81 mg 03/03/21 09:00 03/04/21 09:46 Aspirin 81 Mg Tab.Chew PO 81 mg DAILY [facility] Administration Atovaquone 1,500 mg 03/03/21 09:00 03/04/21 09:46 Atovaquone 750 Mg/5 Ml Oral.Susp PO 1,500 mg DAILY [facility] Administration Calcium Carbonate 500 mg 03/03/21 09:00 03/04/21 09:47 Calcium Carbonate 500 Mg Tablet PO 500 mg BID [facility] Administration [place] Butter/Zinc Oxide 1 supp 03/03/21 11:23 [place] Butter/Zinc Oxide Supp.Rect PA BID PRN pain Dextrose 25 gm 03/03/21 00:32 Dextrose 50 % 25 Gm/50 Ml Vial IVPUSH Q15M PRN per Hypoglycemia Standing Ord. Protocol Duloxetine HCl 20 mg 03/03/21 09:00 03/04/21 09:46 Duloxetine Hcl 20 Mg Capsule.Dr PO 20 mg DAILY [facility] Administration Glucose 15 gm 03/03/21 00:32 Glucose Gel 15 Gm Gel..Gram. PO Q15M PRN per Hypoglycemia Standing Ord. Protocol Hydrocortisone 1 appl 03/03/21 00:26 Hydrocortisone 1 % Ointment 28.35 Gm Tube TOPICAL DAILY PRN Hemorrhoids Protocol Lactated Ringer's 1,000 mls @ 100 mls/hr 03/03/21 08:30 03/04/21 05:36 Lr IVCONT 100 mls/hr .Q10H [facility] Administration Insulin Human Lispro 0 unit 03/03/21 07:30 03/04/21 07:43 Insulin Lispro 100 Unit/Ml 3 Ml Vial SUBCUT Not Given QIDACHS [facility] Protocol Loperamide HCl 2 mg 03/03/21 08:16 03/03/21 10:07 Loperamide Hcl 2 Mg Capsule PO 2 mg Q4H PRN Administration diarrhea Magnesium Oxide 400 mg 03/03/21 08:30 03/04/21 09:46 Magnesium Oxide 400 Mg Tablet PO 400 mg BIDPC [facility] Administration Metoclopramide HCl 5 mg 03/04/21 09:21 03/04/21 09:47 Metoclopramide Hcl 10 Mg/2 Ml Vial IVPUSH 5 mg Q6H PRN Administration Nausea Nystatin 1 appl 03/03/21 15:00 03/04/21 09:47 Nystatin Powder 15 Gm Bottle TOPICAL Not Given TID [facility] Protocol Omeprazole 20 mg 03/03/21 09:00 03/04/21 09:46 Omeprazole 20 Mg Capsule.Dr PO 20 mg BID [facility] Administration Ondansetron HCl 4 mg 03/03/21 10:21 03/03/21 10:47 Ondansetron Hcl 4 Mg/2 Ml Vial IVPUSH 4 mg Q8H PRN Administration nausea Pharmacy Consult 1 each 03/02/21 15:27 Consult Rx Perform Med Rec MISCELLANE ONCE PRN Consult order Potassium Chloride 40 meq 03/03/21 09:00 03/04/21 09:47 Potassium Chloride Er 20 Meq Tab.Er.Prt PO 40 meq DAILY [facility] Administration Sodium Chloride 3 ml 03/03/21 08:00 03/04/21 09:46 0.9 % Sodium Chloride Flush 3 Ml Syringe IVFLUSH Not Given QSHIFT [facility] Labs CBC & Chem 7: 03/04/21 06:29 03/04/21 06:29 Labs: Laboratory Results - last 24 hr 03/03/21 03/03/21 03/04/21 15:57 20:16 06:29 MCV 101.2 H MCH 32.3 MCHC 31.9 RDW 18.5 H Plt Count 53 L MPV 12.5 H Absolute Nucleated RBC 0.000 Nucleated RBC % (auto) 0.0 Anion Gap Estim Creat Clear Calc Estimated GFR POC Glucose 116 H 126 H Fasting Glucose Calcium 03/04/21 03/04/21 06:29 07:27 MCV MCH MCHC RDW Plt Count MPV Absolute Nucleated RBC Nucleated RBC % (auto) Anion Gap 7 L Estim Creat Clear Calc 77.1 Estimated GFR > 60 POC Glucose 94 Fasting Glucose 99 Calcium 6.9 L Microbiology Microbiology Results: Microbiology 03/03/21 01:12 Stool Culture - Preliminary Stool Culture in progress. 03/02/21 18:14 Urine Culture - Preliminary Urine clean catch - Urine alarcon top Klebsiella pneumoniae 03/02/21 15:58 Blood Culture - Preliminary Blood - Venous No growth after 24 hours. 03/02/21 15:48 Blood Culture - Preliminary Blood - Venous No growth after 24 hours. Assessment and Plan (1) Neutropenic fever: Status: Acute (2) Multiple myeloma: Status: Chronic Assessment and Plan: 75F presented with weakness, diarrhea, vomitting weakness, diarrhea, vomitting cdif negative - imodium zofran, reglan LR MM on chemo with pancytopenia atovaquone, acycloivir DM insulin Quality Stroke Does the patient have a stroke diagnosis?: No VTE Prior VTE?: No VTE Risk Level:: Medical - moderate - high VTE Device Contraindication: N/A - Device Ordered VTE Drug Contraindication: Treatment Not Tolerated
[2021-03-04 11:45] VITALS: BP 121/53; PULSE 106; RESP 17; TEMP 36.7; O2SAT 99
[2021-03-04 11:47] LABS: Glucose, Whole Blood 144 mg/dL (60-115)
--- NOTE | 2021-03-04 13:01 | MHC.CM.PN ---
Addendum entered by Lanie Moreno RN 03/04/21 13:31: PT'S ONCOLOGIST IS DR. PRITCHETT. Original Note: [facility] OFFERING BED IF ONCOLOGY WILL HOLD CHEMO WHILE IN STR.
[2021-03-04 14:09] VITALS: BP 121/53; PULSE 106; O2SAT 99
[2021-03-04 15:16] VITALS: BP 111/56; PULSE 99; RESP 18; TEMP 36.3; O2SAT 99
[2021-03-04 16:14] LABS: Glucose, Whole Blood 156 mg/dL (60-115)
[2021-03-04] MEDS: Insulin Lispro 100 UNIT/ML 3 ML VIAL SUBCUT (16:39)
[2021-03-04 19:26] VITALS: BP 101/55; PULSE 102; RESP 16; TEMP 36.8; O2SAT 98
[2021-03-04 20:06] LABS: Glucose, Whole Blood 136 mg/dL (60-115)
[2021-03-04] MEDS: 0.9 % Sodium Chloride Flush 3 ML SYRINGE IVFLUSH (21:24)
[2021-03-05] VITALS (7 sets, daily range): BP systolic 100–112; BP diastolic 57–68; PULSE 95–119; RESP 18–20; TEMP 36.1–36.5; O2SAT 97–99
[2021-03-05] MEDS: Lactated Ringers 1,000 ML 100 ML IVCONT (00:28)
[2021-03-05 06:39] LABS: Hematocrit 23.7 % (37-47); Hemoglobin 7.7 g/dl (12.0-16.0); Mean Corpuscular HGB Conc 32.5 g/dl (31.0-35.0); Mean Corpuscular Hemoglobin 32.8 pg (27.0-33.0); Mean Corpuscular Volume 100.9 fL (80-98); Mean Platelet Volume 11.9 fL (9.4-12.3); Red Blood Count 2.35 X10*6/uL (4.20-5.50); Red Cell Distribution Width 18.6 % (11.0-16.0)
[2021-03-05 06:53] LABS: Platelet Count 51 X10*3/uL (160-400); White Blood Count 1.4 X10*3/uL (4.8-10.8)
[2021-03-05] MEDS: Acyclovir 200 MG CAPSULE 400 MG PO (07:16)
[2021-03-05] MEDS: Magnesium Oxide 400 MG TABLET PO ×2 (07:16→16:54)
[2021-03-05] MEDS: Atovaquone 750 MG/5 ML ORAL.SUSP 1500 MG PO (07:16)
[2021-03-05] MEDS: Potassium Chloride ER 20 MEQ TAB.ER.PRT 40 MEQ PO (07:16)
[2021-03-05] MEDS: DULoxetine HCl 20 MG CAPSULE.DR PO (07:17)
[2021-03-05] MEDS: Omeprazole 20 MG CAPSULE.DR PO ×2 (07:17→20:29)
[2021-03-05] MEDS: Aspirin 81 MG TAB.CHEW PO (07:17)
[2021-03-05 07:19] LABS: Alanine Aminotransferase 12 U/L (0-31); Alkaline Phosphatase 45 U/L (39-117); Anion Gap 3 (12-20); Aspartate Amino Transferase 11 U/L (5-31); Bilirubin Direct 0.4 mg/dL (0.0-0.5); Bilirubin Total 0.5 mg/dL (0.0-1.0); Blood Urea Nitrogen 12 mg/dL (9-16); Calcium 7.1 mg/dL (8.4-10.2); Carbon Dioxide 20 mmol/L (22-29); Chloride 116 mmol/L (96-108); Creatinine Clr Calc Pharmacy 76.2; Estimated Glomerular Filt Rate > 60; Glucose Fasting 96 mg/dL (60-99); Magnesium 1.5 mg/dL (1.6-2.6); Potassium 4.3 mmol/L (3.3-5.1); Sodium 135 mmol/L (135-145); Total Protein 5.5 g/dL (6.5-8.0)
[2021-03-05 08:05] LABS: Glucose, Whole Blood 86 mg/dL (60-115)
--- NOTE | 2021-03-05 09:34 | MHC.CLN ---
FOLLOW UP PATIENT EATING 50-100% OF MEALS. REPORTED TO DINING STAFF THAT DISLIKES MO SUPPLEMENT. MO SUPPLEMENT DISCONTINUED.
[2021-03-05] MEDS: Magnesium Sulfate/H2O 2 GM/50 ML PIGGYBACK IV (09:45)
[2021-03-05 11:36] LABS: Glucose, Whole Blood 117 mg/dL (60-115)
--- NOTE | 2021-03-05 12:01 | P.DS_ITS ---
DS: Providers Provider Date of Service: 03/06/21 Date of admission: 03/03/21 00:22 Primary care physician: Iveth Cowart MD DS: Diagnosis Discharge Diagnosis (1) Neutropenic fever: Status: Resolved (2) Multiple myeloma: Status: Chronic DS: Medications Discharge Medications Home Medications: Home Medications Medication Instructions Recorded Confirmed aspirin 81 mg chewable tablet 81 mg PO DAILY 04/22/20 03/02/21 insulin aspart U-100 100 unit/mL 4 - 24 unit SUBCUT TID 04/22/20 03/02/21 (3 mL) subcutaneous pen omeprazole 20 mg capsule,delayed 20 mg PO BID 04/22/20 03/02/21 release calcium carbonate 500 mg (1,250 1 tab PO BID 02/02/21 03/02/21 mg)-vitamin D3 125 unit tablet duloxetine 20 mg capsule,delayed 1 cap PO DAILY 02/22/21 03/02/21 release potassium chloride 20 mEq 40 meq PO DAILY 02/22/21 03/02/21 tablet,extended release nystatin 100,000 unit/gram topical 1 appl TOPICAL TID 03/02/21 03/02/21 powder Previous Rx's Medication Instructions Recorded acyclovir 400 mg tablet 400 mg PO DAILY #90 tab 10/26/20 ondansetron HCl 4 mg tablet 8 mg PO Q8H PRN #50 tab 10/26/20 (Zofran) atovaquone 750 mg/5 mL oral 1,500 mg PO DAILY #300 ml 10/29/20 suspension (Mepron) magnesium oxide 400 mg (241.3 mg 400 mg PO BIDPC #60 tab 11/26/20 magnesium) tablet hydrocortisone 2.5 % topical cream 1 appl [place] DAILY PRN #100 g 03/02/21 with perineal applicator (Anusol-HC) sitz bath #1 ea 03/02/21 DS: Summary Hospital Course Hospital Course: patient was admitted for weakness due to diarrhea likely due to neutropenia. cdif was negative, she was given iv fluids and imodium. symptoms improved. she was noted to have left upper extremity skin tear with surrounding erythema/cellulitis, not septic, will treat with one week of keflex. patient is better but still quite deconditioned. she will be discharged to SNF. Time Spent with Patient Time attestation: Total time spent providing and/or coordinating discharge services: Discharge coordination time: Greater than 30 minutes Quality: Stroke Does the patient have a stroke diagnosis?: No Physical Exam Vital Signs: Vital Signs: Last Vital Signs Temp 96.9 F 03/05/21 11:04 Pulse 95 03/05/21 11:04 Resp 20 03/05/21 11:04 BP 109/68 03/05/21 11:04 Pulse Ox 97 03/05/21 11:04 Body Mass Index 37.5 DS: Data Data Completed and Pending Completed studies during hospitalization [Text1]: Procedures Extraction of Iliac Bone Marrow, Percutaneous Approach, Diagnostic (10/09/20) Transfusion of Nonautologous Red Blood Cells into Peripheral Vein, Percutaneous Approach (02/22/21) Labs on day of discharge: Laboratory Results - last 24 hr 03/04/21 03/04/21 03/05/21 16:10 20:02 05:59 WBC 1.4 L RBC 2.35 L Hgb 7.7 L Hct 23.7 L MCV 100.9 H MCH 32.8 MCHC 32.5 RDW 18.6 H Plt Count 51 L MPV 11.9 Absolute Nucleated RBC 0.000 Nucleated RBC % (auto) 0.0 Sodium Potassium Chloride Carbon Dioxide Anion Gap BUN Creatinine Estim Creat Clear Calc Estimated GFR POC Glucose 156 H 136 H Fasting Glucose Calcium Magnesium Total Bilirubin Direct Bilirubin AST ALT Alkaline Phosphatase Total Protein Albumin 03/05/21 03/05/21 03/05/21 05:59 07:34 11:26 WBC RBC Hgb Hct MCV MCH MCHC RDW Plt Count MPV Absolute Nucleated RBC Nucleated RBC % (auto) Sodium 135 Potassium 4.3 Chloride 116 H Carbon Dioxide 20 L Anion Gap 3 L BUN 12 Creatinine 0.85 Estim Creat Clear Calc 76.2 Estimated GFR > 60 POC Glucose 86 117 H Fasting Glucose 96 Calcium 7.1 L Magnesium 1.5 L Total Bilirubin 0.5 Direct Bilirubin 0.4 AST 11 ALT 12 Alkaline Phosphatase 45 Total Protein 5.5 L Albumin 1.0 L Preliminary micro results at discharge 03/03/21 01:12 Stool Culture - Preliminary Stool Normal so far. 03/02/21 15:58 Blood Culture - Preliminary Blood - Venous No growth after 48 hours. 03/02/21 15:48 Blood Culture - Preliminary Blood - Venous No growth after 48 hours. Discharge Plan Discharge Patient Disposition: [facility]F Discharge Diagnosis: diarrhea Referrals: [facility] [Outside] - 1 Week Iveth Cowart MD [Primary Care Provider] - 1 Week Discharge Medications: New cephalexin 500 mg Capsule 500 mg PO Q12H Qty: 14 RF: 0 Continued ondansetron HCl [Zofran] 4 mg Tablet 8 mg PO Q8H PRN (Reason: Nausea And Vomiting) Qty: 50 RF: 4 acyclovir 400 mg Tablet 400 mg PO DAILY Qty: 90 RF: 4 magnesium oxide 400 mg (241.3 mg magnesium) Tablet 400 mg PO BIDPC Qty: 60 RF: 0 calcium carbonate-vitamin D3 500 mg(1,250mg) -125 unit Tablet 1 tab PO BID RF: 0 hydrocortisone [Anusol-HC] 2.5 % Cream With Perineal Applicator 1 appl [place] DAILY PRN (Reason: Pain) Qty: 100 RF: 0 (DME) sitz bath Kit Qty: 1 RF: 0 atovaquone [Mepron] 750 mg/5 mL Suspension 1,500 mg PO DAILY Qty: 300 RF: 6 duloxetine 20 mg capsule,delayed release(DR/EC) 1 cap PO DAILY RF: 0 potassium chloride 20 mEq tablet extended release 40 meq PO DAILY RF: 0 nystatin 100,000 unit/gram powder 1 appl topical TID RF: 0 aspirin 81 mg tablet,chewable 81 mg PO DAILY RF: 0 insulin aspart U-100 100 unit/mL (3 mL) insulin pen 4 - 24 unit subcut TID RF: 0 omeprazole 20 mg capsule,delayed release(DR/EC) 20 mg PO BID RF: 0 Discontinued spironolactone 50 mg Tablet 25 mg PO DAILY Qty: 0 RF: 0 Discharge Orders: Discharge Order (Routine); Ordered 03/06/21 Ordered By: Ernesto Morales Diet: advance to usual diet Activity on Discharge: As tolerated Care Plan Goals: recovery Health Concerns: MM, weakness Plan of Treatment: rehab, follow up with hematology, hold aldactone for now, can use imodium for diarrhea Assessment: see above
--- NOTE | 2021-03-05 13:56 | P.PNIM_ITS ---
Subjective Subjective Date of Service: 03/05/21 Interval History: basil duong today, diarrhea improved Constitutional Constitutional: Reports no additional constitutional complaints Eyes Eyes: Reports no additional eye complaints Physical Exam Vital Signs: Vital Signs: Last Vital Signs Temp 96.9 F 03/05/21 11:04 Pulse 95 03/05/21 12:18 Resp 20 03/05/21 11:04 BP 109/68 03/05/21 12:18 Pulse Ox 97 03/05/21 12:18 Body Mass Index 37.5 General: AO X 3, ill appearing Resp:? diminshed CVS: S1,S2,RRR GI: soft, non tender, non distended Neuro:? motor grossly intact Psych: appropriate affect Objective Data Current Medications Generic Name Dose Route Start Last Admin Trade Name Freq PRN Reason Stop Dose Admin Acetaminophen 650 mg 03/03/21 00:22 Acetaminophen 325 Mg Tablet PO Q6H PRN Pain, Mild (Pain Scale 1-3) Acyclovir 400 mg 03/03/21 09:00 03/05/21 07:16 Acyclovir 200 Mg Capsule PO 400 mg DAILY DONAVAN Administration Aspirin 81 mg 03/03/21 09:00 03/05/21 07:17 Aspirin 81 Mg Tab.Chew PO 81 mg DAILY DONAVAN Administration Atovaquone 1,500 mg 03/03/21 09:00 03/05/21 07:16 Atovaquone 750 Mg/5 Ml Oral.Susp PO 1,500 mg DAILY DONAVAN Administration Calcium Carbonate 500 mg 03/03/21 09:00 03/05/21 07:17 Calcium Carbonate 500 Mg Tablet PO 500 mg BID DONAVAN Administration [place] Butter/Zinc Oxide 1 supp 03/03/21 11:23 [place] Butter/Zinc Oxide Supp.Rect HI BID PRN pain Dextrose 25 gm 03/03/21 00:32 Dextrose 50 % 25 Gm/50 Ml Vial IVPUSH Q15M PRN per Hypoglycemia Standing Ord. Protocol Duloxetine HCl 20 mg 03/03/21 09:00 03/05/21 07:17 Duloxetine Hcl 20 Mg Capsule.Dr PO 20 mg DAILY DONAVAN Administration Glucose 15 gm 03/03/21 00:32 Glucose Gel 15 Gm Gel..Gram. PO Q15M PRN per Hypoglycemia Standing Ord. Protocol Hydrocortisone 1 appl 03/03/21 00:26 Hydrocortisone 1 % Ointment 28.35 Gm Tube TOPICAL DAILY PRN Hemorrhoids Protocol Lactated Ringer's 1,000 mls @ 100 mls/hr 03/03/21 08:30 03/05/21 11:51 Lr IVCONT Not Given .Q10H [facility] Insulin Human Lispro 0 unit 03/03/21 07:30 03/05/21 11:42 Insulin Lispro 100 Unit/Ml 3 Ml Vial SUBCUT Not Given QIDACHS [facility] Protocol Loperamide HCl 2 mg 03/03/21 08:16 03/03/21 10:07 Loperamide Hcl 2 Mg Capsule PO 2 mg Q4H PRN Administration diarrhea Magnesium Oxide 400 mg 03/03/21 08:30 03/05/21 07:16 Magnesium Oxide 400 Mg Tablet PO 400 mg BIDPC [facility] Administration Metoclopramide HCl 5 mg 03/04/21 09:21 03/04/21 09:47 Metoclopramide Hcl 10 Mg/2 Ml Vial IVPUSH 5 mg Q6H PRN Administration Nausea Nystatin 1 appl 03/03/21 15:00 03/05/21 12:29 Nystatin Powder 15 Gm Bottle TOPICAL Not Given TID [facility] Protocol Omeprazole 20 mg 03/03/21 09:00 03/05/21 07:17 Omeprazole 20 Mg Capsule.Dr PO 20 mg BID [facility] Administration Ondansetron HCl 4 mg 03/03/21 10:21 03/03/21 10:47 Ondansetron Hcl 4 Mg/2 Ml Vial IVPUSH 4 mg Q8H PRN Administration nausea Pharmacy Consult 1 each 03/02/21 15:27 Consult Rx Perform Med Rec MISCELLANE ONCE PRN Consult order Potassium Chloride 40 meq 03/03/21 09:00 03/05/21 07:16 Potassium Chloride Er 20 Meq Tab.Er.Prt PO 40 meq DAILY [facility] Administration Sodium Chloride 3 ml 03/03/21 08:00 03/05/21 07:16 0.9 % Sodium Chloride Flush 3 Ml Syringe IVFLUSH Not Given QSHIFT [facility] Labs CBC & Chem 7: 03/05/21 05:59 03/05/21 05:59 Labs: Laboratory Results - last 24 hr 03/04/21 03/04/21 03/05/21 16:10 20:02 05:59 MCV 100.9 H MCH 32.8 MCHC 32.5 RDW 18.6 H Plt Count 51 L MPV 11.9 Absolute Nucleated RBC 0.000 Nucleated RBC % (auto) 0.0 Anion Gap Estim Creat Clear Calc Estimated GFR POC Glucose 156 H 136 H Fasting Glucose Calcium Magnesium Total Bilirubin Direct Bilirubin AST ALT Alkaline Phosphatase Total Protein Albumin 03/05/21 03/05/21 03/05/21 05:59 07:34 11:26 MCV MCH MCHC RDW Plt Count MPV Absolute Nucleated RBC Nucleated RBC % (auto) Anion Gap 3 L Estim Creat Clear Calc 76.2 Estimated GFR > 60 POC Glucose 86 117 H Fasting Glucose 96 Calcium 7.1 L Magnesium 1.5 L Total Bilirubin 0.5 Direct Bilirubin 0.4 AST 11 ALT 12 Alkaline Phosphatase 45 Total Protein 5.5 L Albumin 1.0 L Microbiology Microbiology Results: Microbiology 03/02/21 18:14 Urine Culture - Final Urine clean catch - Urine alarcon top Klebsiella pneumoniae 03/03/21 01:12 Stool Culture - Preliminary Stool Normal so far. 03/02/21 15:58 Blood Culture - Preliminary Blood - Venous No growth after 48 hours. 03/02/21 15:48 Blood Culture - Preliminary Blood - Venous No growth after 48 hours. Assessment and Plan (1) Neutropenic fever: Status: Acute (2) Multiple myeloma: Status: Chronic Assessment and Plan: 75F presented with weakness, diarrhea, vomitting weakness, diarrhea, vomitting cdif negative - imodium zofran, reglan LR resolved - plan for dc to snf when available MM on chemo with pancytopenia atovaquone, acycloivir DM insulin Quality Stroke Does the patient have a stroke diagnosis?: No VTE Prior VTE?: No VTE Risk Level:: Medical - moderate - high VTE Device Contraindication: N/A - Device Ordered VTE Drug Contraindication: Treatment Not Tolerated
--- NOTE | 2021-03-05 13:59 | MHC.CM.PN ---
pt will not have a bed a [facility] until monday, 03/06. this is the only place patient want to go to at this time. is aware that patient will have to stay one more noc before dc to str. i also communicated c oncologist who said patient can go 1 week to 10 days at snf s chemo, this was shared c hospitalist. cm to cont. to follow.
[2021-03-05] MEDS: 0.9 % Sodium Chloride Flush 3 ML SYRINGE IVFLUSH (15:57)
[2021-03-05 16:18] LABS: Glucose, Whole Blood 157 mg/dL (60-115)
[2021-03-05] MEDS: Insulin Lispro 100 UNIT/ML 3 ML VIAL SUBCUT ×2 (16:53→20:29)
[2021-03-05 20:01] LABS: Glucose, Whole Blood 164 mg/dL (60-115)
[2021-03-06] VITALS (8 sets, daily range): BP systolic 84–119; BP diastolic 47–72; PULSE 88–134; RESP 16–18; TEMP 36.3–38.1; O2SAT 95–99
--- NOTE | 2021-03-06 | ECG_ITS ---
Test Reason : TACHYCARDIC Blood Pressure : / mmHG Vent. Rate : 126 BPM Atrial Rate : 126 BPM P-R Int : 152 ms QRS Dur : 062 ms QT Int : 304 ms P-R-T Axes : 073 -26 087 degrees QTc Int : 440 ms Sinus tachycardia with Premature atrial complexes Low voltage QRS Borderline ECG When compared with ECG of 22-FEB-2021 15:09, No significant change was found Referred By: Ernesto Morales Electronically Signed By:MARTINE PRECIADO
[2021-03-06 07:44] LABS: Glucose, Whole Blood 71 mg/dL (60-115)
[2021-03-06] MEDS: Atovaquone 750 MG/5 ML ORAL.SUSP 1500 MG PO (09:40)
[2021-03-06] MEDS: Aspirin 81 MG TAB.CHEW PO (09:41)
[2021-03-06] MEDS: DULoxetine HCl 20 MG CAPSULE.DR PO (09:41)
[2021-03-06] MEDS: Magnesium Oxide 400 MG TABLET PO (09:41)
[2021-03-06] MEDS: Omeprazole 20 MG CAPSULE.DR PO ×2 (09:41→22:24)
[2021-03-06] MEDS: Acyclovir 200 MG CAPSULE 400 MG PO (09:41)
[2021-03-06] MEDS: Potassium Chloride ER 20 MEQ TAB.ER.PRT 40 MEQ PO (09:41)
[2021-03-06] MEDS: cephALEXin 500 MG CAPSULE PO (09:41)
[2021-03-06] MEDS: 0.9 % Sodium Chloride Flush 3 ML SYRINGE IVFLUSH ×3 (09:42→22:29)
--- NOTE | 2021-03-06 11:07 | P.PNIM_ITS ---
Subjective Subjective Date of Service: 03/06/21 Interval History: lue erythema Cardiovascular Cardiovascular: Reports no additional cardiovascular complaints Respiratory Respiratory: Reports no additional respiratory complaints Physical Exam Vital Signs: Vital Signs: Last Vital Signs Temp 97.4 F 03/06/21 08:00 Pulse 98 03/06/21 08:00 Resp 17 03/06/21 08:00 BP 110/57 L 03/06/21 08:00 Pulse Ox 99 03/06/21 08:00 Body Mass Index 37.5 General: AO X 3, ill appearing Resp:? diminshed CVS: S1,S2,RRR GI: soft, non tender, non distended Neuro:? motor grossly intact Psych: appropriate affect Objective Data Current Medications Generic Name Dose Route Start Last Admin Trade Name Freq PRN Reason Stop Dose Admin Acetaminophen 650 mg 03/03/21 00:22 Acetaminophen 325 Mg Tablet PO Q6H PRN Pain, Mild (Pain Scale 1-3) Acyclovir 400 mg 03/03/21 09:00 03/06/21 09:41 Acyclovir 200 Mg Capsule PO 400 mg DAILY DONAVAN Administration Aspirin 81 mg 03/03/21 09:00 03/06/21 09:41 Aspirin 81 Mg Tab.Chew PO 81 mg DAILY DON[facility]AN Administration Atovaquone 1,500 mg 03/03/21 09:00 03/06/21 09:40 Atovaquone 750 Mg/5 Ml Oral.Susp PO 1,500 mg DAILY DONAVAN Administration Calcium Carbonate 500 mg 03/03/21 09:00 03/06/21 09:41 Calcium Carbonate 500 Mg Tablet PO 500 mg BID DONAVAN Administration Cephalexin HCl 500 mg 03/06/21 09:00 03/06/21 09:41 Cephalexin 500 Mg Capsule PO 500 mg Q12H DONAVAN Administration [place] Butter/Zinc Oxide 1 supp 03/03/21 11:23 [place] Butter/Zinc Oxide Supp.Rect AR BID PRN pain Dextrose 25 gm 03/03/21 00:32 Dextrose 50 % 25 Gm/50 Ml Vial IVPUSH Q15M PRN per Hypoglycemia Standing Ord. Protocol Duloxetine HCl 20 mg 03/03/21 09:00 03/06/21 09:41 Duloxetine Hcl 20 Mg Capsule.Dr PO 20 mg DAILY DONAVAN Administration Glucose 15 gm 03/03/21 00:32 Glucose Gel 15 Gm Gel..Gram. PO Q15M PRN per Hypoglycemia Standing Ord. Protocol Hydrocortisone 1 appl 03/03/21 00:26 Hydrocortisone 1 % Ointment 28.35 Gm Tube TOPICAL DAILY PRN Hemorrhoids Protocol Insulin Human Lispro 0 unit 03/03/21 07:30 03/06/21 08:56 Insulin Lispro 100 Unit/Ml 3 Ml Vial SUBCUT Not Given QIDACHS [facility] Protocol Loperamide HCl 2 mg 03/03/21 08:16 03/03/21 10:07 Loperamide Hcl 2 Mg Capsule PO 2 mg Q4H PRN Administration diarrhea Magnesium Oxide 400 mg 03/03/21 08:30 03/06/21 09:41 Magnesium Oxide 400 Mg Tablet PO 400 mg BIDPC DONAVAN Administration Metoclopramide HCl 5 mg 03/04/21 09:21 03/04/21 09:47 Metoclopramide Hcl 10 Mg/2 Ml Vial IVPUSH 5 mg Q6H PRN Administration Nausea Nystatin 1 appl 03/03/21 15:00 03/06/21 09:51 Nystatin Powder 15 Gm Bottle TOPICAL Not Given TID [facility] Protocol Omeprazole 20 mg 03/03/21 09:00 03/06/21 09:41 Omeprazole 20 Mg Capsule.Dr PO 20 mg BID DONAVAN Administration Ondansetron HCl 4 mg 03/03/21 10:21 03/03/21 10:47 Ondansetron Hcl 4 Mg/2 Ml Vial IVPUSH 4 mg Q8H PRN Administration nausea Pharmacy Consult 1 each 03/02/21 15:27 Consult Rx Perform Med Rec MISCELLANE ONCE PRN Consult order Potassium Chloride 40 meq 03/03/21 09:00 03/06/21 09:41 Potassium Chloride Er 20 Meq Tab.Er.Prt PO 40 meq DAILY [facility] Administration Sodium Chloride 3 ml 03/03/21 08:00 03/06/21 09:42 0.9 % Sodium Chloride Flush 3 Ml Syringe IVFLUSH 3 ml QSHIFT [facility] Administration Labs CBC & Chem 7: 03/05/21 05:59 03/05/21 05:59 Labs: Laboratory Results - last 24 hr 03/05/21 03/05/21 03/05/21 11:26 16:09 19:50 POC Glucose 117 H 157 H 164 H 03/06/21 07:31 POC Glucose 71 Microbiology Microbiology Results: Microbiology 03/03/21 01:12 Stool Culture - Final Stool 03/02/21 18:14 Urine Culture - Final Urine clean catch - Urine alarcon top Klebsiella pneumoniae Assessment and Plan (1) Neutropenic fever: Status: Resolved (2) Multiple myeloma: Status: Chronic Assessment and Plan: 75F presented with weakness, diarrhea, vomitting weakness, diarrhea, vomitting cdif negative - imodium zofran, reglan LR resolved - plan for dc to snf when available LUE cellulits keflex MM on chemo with pancytopenia atovaquone, acycloivir DM insulin Quality Stroke Does the patient have a stroke diagnosis?: No VTE Prior VTE?: No VTE Risk Level:: Medical - moderate - high VTE Device Contraindication: N/A - Device Ordered VTE Drug Contraindication: Treatment Not Tolerated
[2021-03-06 11:31] LABS: Glucose, Whole Blood 113 mg/dL (60-115)
[2021-03-06] MEDS: Metoclopramide HCl 10 MG/2 ML VIAL 5 MG IVPUSH (13:59)
--- NOTE | 2021-03-06 15:41 | PC.NURSE ---
1430 Getting OOB with aide and became weak, HR elevated to [address] Morales aware and in to see patient. EKG ordered. Denies chest pain. C/O nausea. reglan was given at 1400.
[2021-03-06] MEDS: 0.9 % Sodium Chloride 1,000 ML 999 ML IVCONT (16:10)
[2021-03-06 16:49] LABS: Glucose, Whole Blood 86 mg/dL (60-115)
[2021-03-06] MEDS: Acetaminophen 325 MG TABLET 650 MG PO (17:56)
[2021-03-06] MEDS: Albumin Human 25 % 100 ML IV ×2 (19:52→20:56)
[2021-03-06 20:41] LABS: Glucose, Whole Blood 99 mg/dL (60-115)
[2021-03-06] MEDS: 0.9 % Sodium Chloride 1,000 ML 100 ML IVCONT (22:02)
[2021-03-06] MEDS: levoFLOXacin/D5W 500 MG/100 ML PIGGYBACK 100 MG IV (22:23)
[2021-03-07] VITALS: BP 102/52; PULSE 116; RESP 16; TEMP 37.3; O2SAT 97
[2021-03-07] MEDS: Acetaminophen 325 MG TABLET 650 MG PO ×2 (00:33→19:08)
[2021-03-07] MEDS: Metoclopramide HCl 10 MG/2 ML VIAL 5 MG IVPUSH (02:17)
[2021-03-07 03:42] VITALS: BP 99/48; PULSE 109; RESP 16; TEMP 36.6; O2SAT 99
[2021-03-07 07:42] LABS: Glucose, Whole Blood 94 mg/dL (60-115)
[2021-03-07 07:59] VITALS: BP 105/54; PULSE 103; RESP 17; TEMP 36.7; O2SAT 99
--- NOTE | 2021-03-07 08:26 | MHC.CM.PN ---
PT WAS MEDICALLY CLEARED FOR DC HOWEVER IT APPEARS [facility] DID NOT HAVE A BED. MESSAGE SENT TO [facility] LIAISON TO CONFIRM THEY WILL BE ABLE TO ADMIT TODAY
--- NOTE | 2021-03-07 08:54 | HO.PM.IMPN ---
Subjective Subjective Date of Service: 03/07/21 Interval History: a bit better today, but yesterday was very weak and nauseous again, had low grade fever Cardiovascular Cardiovascular: Reports no additional cardiovascular complaints Respiratory Respiratory: Reports no additional respiratory complaints Physical Exam Vital Signs: Vital Signs: Last Vital Signs Temp 98.0 F 03/07/21 07:59 Pulse 103 H 03/07/21 07:59 Resp 17 03/07/21 07:59 BP 105/54 L 03/07/21 07:59 Pulse Ox 99 03/07/21 07:59 Body Mass Index 37.5 General: AO X 3, no acute distress Resp: CTA bilateral CVS: S1,S2,RRR, anasarca GI: soft, non tender, non distended Neuro: motor grossly intact Psych: appropriate affect LUE erythema improved Objective Data Current Medications Generic Name Dose Route Start Last Admin Trade Name Freq PRN Reason Stop Dose Admin Acetaminophen 650 mg 03/03/21 00:22 03/07/21 00:33 Acetaminophen 325 Mg Tablet PO 650 mg Q6H PRN Administration Pain, Mild (Pain Scale 1-3) Acyclovir 400 mg 03/03/21 09:00 03/06/21 09:41 Acyclovir 200 Mg Capsule PO 400 mg DAILY DONAVAN Administration Aspirin 81 mg 03/03/21 09:00 03/06/21 09:41 Aspirin 81 Mg Tab.Chew PO 81 mg DAILY DONAVAN Administration Atovaquone 1,500 mg 03/03/21 09:00 03/06/21 09:40 Atovaquone 750 Mg/5 Ml Oral.Susp PO 1,500 mg DAILY DONAVAN Administration Calcium Carbonate 500 mg 03/03/21 09:00 03/06/21 22:24 Calcium Carbonate 500 Mg Tablet PO 500 mg BID DONAVAN Administration [place] Butter/Zinc Oxide 1 supp 03/03/21 11:23 [place] Butter/Zinc Oxide Supp.Rect ND BID PRN pain Dextrose 25 gm 03/03/21 00:32 Dextrose 50 % 25 Gm/50 Ml Vial IVPUSH Q15M PRN per Hypoglycemia Standing Ord. Protocol Duloxetine HCl 20 mg 03/03/21 09:00 03/06/21 09:41 Duloxetine Hcl 20 Mg Capsule.Dr PO 20 mg DAILY DONAVAN Administration Glucose 15 gm 03/03/21 00:32 Glucose Gel 15 Gm Gel..Gram. PO Q15M PRN per Hypoglycemia Standing Ord. Protocol Hydrocortisone 1 appl 03/03/21 00:26 Hydrocortisone 1 % Ointment 28.35 Gm Tube TOPICAL DAILY PRN Hemorrhoids Protocol Cefazolin Sodium 1 gm/ Sodium 50 mls @ 100 mls/hr 03/06/21 16:00 03/07/21 08:30 Chloride IV Infused Q8H DON[facility]AN Infusion Sodium Chloride 1,000 mls @ 100 mls/hr 03/06/21 19:45 03/06/21 22:02 Ns IVCONT 100 mls/hr .Q10H [facility]AN Administration Levofloxacin 500 mg in 100 mls @ 100 mls/hr 03/06/21 20:00 03/06/21 23:30 Levaquin IV Infused Q24H [facility] Infusion Insulin Human Lispro 0 unit 03/03/21 07:30 03/07/21 07:24 Insulin Lispro 100 Unit/Ml 3 Ml Vial SUBCUT Not Given QIDACHS [facility] Protocol Loperamide HCl 2 mg 03/03/21 08:16 03/03/21 10:07 Loperamide Hcl 2 Mg Capsule PO 2 mg Q4H PRN Administration diarrhea Magnesium Oxide 400 mg 03/03/21 08:30 03/06/21 20:06 Magnesium Oxide 400 Mg Tablet PO Not Given BIDPC [facility] Metoclopramide HCl 5 mg 03/04/21 09:21 03/07/21 02:17 Metoclopramide Hcl 10 Mg/2 Ml Vial IVPUSH 5 mg Q6H PRN Administration Nausea Nystatin 1 appl 03/03/21 15:00 03/06/21 22:29 Nystatin Powder 15 Gm Bottle TOPICAL Not Given TID [facility] Protocol Omeprazole 20 mg 03/03/21 09:00 03/06/21 22:24 Omeprazole 20 Mg Capsule.Dr PO 20 mg BID [facility]AN Administration Ondansetron HCl 4 mg 03/03/21 10:21 03/03/21 10:47 Ondansetron Hcl 4 Mg/2 Ml Vial IVPUSH 4 mg Q8H PRN Administration nausea Pharmacy Consult 1 each 03/02/21 15:27 Consult Rx Perform Med Rec MISCELLANE ONCE PRN Consult order Potassium Chloride 40 meq 03/03/21 09:00 03/06/21 09:41 Potassium Chloride Er 20 Meq Tab.Er.Prt PO 40 meq DAILY [facility] Administration Sodium Chloride 3 ml 03/03/21 08:00 03/07/21 07:25 0.9 % Sodium Chloride Flush 3 Ml Syringe IVFLUSH Not Given QSHIFT [facility] Labs CBC & Chem 7: 03/05/21 05:59 03/05/21 05:59 Labs: Laboratory Results - last 24 hr 03/06/21 03/06/21 03/06/21 11:27 16:33 20:28 POC Glucose 113 86 99 03/07/21 07:24 POC Glucose 94 Microbiology Microbiology Results: Microbiology 03/03/21 01:12 Stool Culture - Final Stool Assessment and Plan (1) Neutropenic fever: Status: Resolved (2) Multiple myeloma: Status: Chronic Assessment and Plan: 75F presented with weakness, diarrhea, vomitting weakness, diarrhea, vomitting cdif negative - imodium zofran, reglan ivf LUE cellulits ancef UTI klebsiella levaquin MM on chemo with pancytopenia atovaquone, acycloivir DM insulin Quality Stroke Does the patient have a stroke diagnosis?: No VTE Prior VTE?: No VTE Risk Level:: Medical - moderate - high VTE Device Contraindication: N/A - Device Ordered VTE Drug Contraindication: Treatment Not Tolerated
[2021-03-07] MEDS: Atovaquone 750 MG/5 ML ORAL.SUSP 1500 MG PO (10:05)
[2021-03-07] MEDS: Acyclovir 200 MG CAPSULE 400 MG PO (10:07)
[2021-03-07] MEDS: Aspirin 81 MG TAB.CHEW PO (10:08)
[2021-03-07] MEDS: Omeprazole 20 MG CAPSULE.DR PO ×2 (10:09→21:18)
[2021-03-07] MEDS: DULoxetine HCl 20 MG CAPSULE.DR PO (10:09)
[2021-03-07] MEDS: 0.9 % Sodium Chloride 1,000 ML 100 ML IVCONT ×3 (10:10→20:01)
[2021-03-07] MEDS: Magnesium Oxide 400 MG TABLET PO ×2 (10:10→16:58)
[2021-03-07] MEDS: Potassium Chloride ER 20 MEQ TAB.ER.PRT 40 MEQ PO (10:10)
[2021-03-07 11:49] LABS: Glucose, Whole Blood 144 mg/dL (60-115)
[2021-03-07 12:00] VITALS: BP 119/57; PULSE 103; RESP 18; TEMP 36.4; O2SAT 99
[2021-03-07 15:31] VITALS: BP 113/56; PULSE 96; RESP 18; TEMP 36.7; O2SAT 98
[2021-03-07 16:06] LABS: Glucose, Whole Blood 185 mg/dL (60-115)
[2021-03-07] MEDS: Insulin Lispro 100 UNIT/ML 3 ML VIAL SUBCUT ×2 (16:58→21:18)
[2021-03-07 19:01] VITALS: BP 111/58; PULSE 104; RESP 18; TEMP 36.6; O2SAT 99
[2021-03-07] MEDS: levoFLOXacin/D5W 500 MG/100 ML PIGGYBACK 100 MG IV (19:56)
[2021-03-07 20:31] LABS: Glucose, Whole Blood 178 mg/dL (60-115)
[2021-03-08] VITALS (11 sets, daily range): BP systolic 96–122; BP diastolic 39–79; PULSE 72–110; RESP 16–18; TEMP 36.2–37.1; O2SAT 98–99
[2021-03-08] MEDS: Metoclopramide HCl 10 MG/2 ML VIAL 5 MG IVPUSH ×2 (04:27→11:55)
[2021-03-08] MEDS: 0.9 % Sodium Chloride 1,000 ML 100 ML IVCONT (06:24)
[2021-03-08 07:14] LABS: Hemoglobin 7.4 g/dl (12.0-16.0); Mean Corpuscular HGB Conc 32.2 g/dl (31.0-35.0); Mean Corpuscular Hemoglobin 32.5 pg (27.0-33.0); Mean Corpuscular Volume 100.9 fL (80-98); Mean Platelet Volume 12.2 fL (9.4-12.3); Red Blood Count 2.28 X10*6/uL (4.20-5.50); Red Cell Distribution Width 18.9 % (11.0-16.0)
[2021-03-08 07:18] LABS: Platelet Count 56 X10*3/uL (160-400); White Blood Count 1.6 X10*3/uL (4.8-10.8)
[2021-03-08 07:23] LABS: Anion Gap 9 (12-20); Blood Urea Nitrogen 15 mg/dL (9-16); Calcium 6.9 mg/dL (8.4-10.2); Carbon Dioxide 16 mmol/L (22-29); Chloride 117 mmol/L (96-108); Creatinine Clr Calc Pharmacy 45.9; Estimated Glomerular Filt Rate 36; Glucose Fasting 118 mg/dL (60-99); Potassium 4.5 mmol/L (3.3-5.1); Sodium 137 mmol/L (135-145)
[2021-03-08 07:47] LABS: Glucose, Whole Blood 106 mg/dL (60-115)
[2021-03-08] MEDS: Acyclovir 200 MG CAPSULE 400 MG PO (07:59)
[2021-03-08] MEDS: DULoxetine HCl 20 MG CAPSULE.DR PO (07:59)
[2021-03-08] MEDS: Aspirin 81 MG TAB.CHEW PO (07:59)
[2021-03-08] MEDS: Potassium Chloride ER 20 MEQ TAB.ER.PRT 40 MEQ PO (07:59)
[2021-03-08] MEDS: Omeprazole 20 MG CAPSULE.DR PO ×2 (07:59→21:27)
[2021-03-08] MEDS: Atovaquone 750 MG/5 ML ORAL.SUSP 1500 MG PO (07:59)
[2021-03-08] MEDS: Magnesium Oxide 400 MG TABLET PO ×2 (08:00→17:58)
[2021-03-08] MEDS: Nystatin Powder 15 GM BOTTLE 1 APPL TOPICAL (08:16)
[2021-03-08] MEDS: Sodium Bicarbonate 8.4% 100 MEQ in Dextrose 5 % 900 ML 70 MEQ IV (10:42)
--- NOTE | 2021-03-08 11:41 | HO.PM.IMPN ---
Subjective Subjective Date of Service: 03/08/21 Interval History: very weakn, lue pain Cardiovascular Cardiovascular: Reports no additional cardiovascular complaints Respiratory Respiratory: Reports no additional respiratory complaints Physical Exam Vital Signs: Vital Signs: Last Vital Signs Temp 97.5 F 03/08/21 11:28 Pulse 91 03/08/21 11:28 Resp 17 03/08/21 11:28 BP 107/48 L 03/08/21 11:28 Pulse Ox 99 03/08/21 11:28 Body Mass Index 37.5 General: AO X 3, no acute distress Resp:? CTA bilateral CVS: S1,S2,RRR, anasarca GI: soft, non tender, non distended Neuro:? motor grossly intact Psych: appropriate affect LUE erythema improved, but tender Objective Data Current Medications Generic Name Dose Route Start Last Admin Trade Name Freq PRN Reason Stop Dose Admin Acetaminophen 650 mg 03/03/21 00:22 03/07/21 19:08 Acetaminophen 325 Mg Tablet PO 650 mg Q6H PRN Administration Pain, Mild (Pain Scale 1-3) Acyclovir 400 mg 03/03/21 09:00 03/08/21 07:59 Acyclovir 200 Mg Capsule PO 400 mg DAILY DONAVAN Administration Aspirin 81 mg 03/03/21 09:00 03/08/21 07:59 Aspirin 81 Mg Tab.Chew PO 81 mg DAILY DONAVAN Administration Atovaquone 1,500 mg 03/03/21 09:00 03/08/21 07:59 Atovaquone 750 Mg/5 Ml Oral.Susp PO 1,500 mg DAILY DONAVAN Administration Calcium Carbonate 500 mg 03/03/21 09:00 03/08/21 07:59 Calcium Carbonate 500 Mg Tablet PO 500 mg BID DONAVAN Administration [place] Butter/Zinc Oxide 1 supp 03/03/21 11:23 [place] Butter/Zinc Oxide Supp.Rect [place] BID PRN pain Dextrose 25 gm 03/03/21 00:32 Dextrose 50 % 25 Gm/50 Ml Vial IVPUSH Q15M PRN per Hypoglycemia Standing Ord. Protocol Duloxetine HCl 20 mg 03/03/21 09:00 03/08/21 07:59 Duloxetine Hcl 20 Mg Capsule.Dr PO 20 mg DAILY DONAVAN Administration Glucose 15 gm 03/03/21 00:32 Glucose Gel 15 Gm Gel..Gram. PO Q15M PRN per Hypoglycemia Standing Ord. Protocol Hydrocortisone 1 appl 03/03/21 00:26 Hydrocortisone 1 % Ointment 28.35 Gm Tube TOPICAL DAILY PRN Hemorrhoids Protocol Cefazolin Sodium 1 gm/ Sodium 50 mls @ 100 mls/hr 03/06/21 16:00 03/08/21 08:28 Chloride IV Infused Q8H [facility] Infusion Levofloxacin 500 mg in 100 mls @ 100 mls/hr 03/06/21 20:00 03/07/21 21:15 Levaquin IV Infused Q24H [facility] Infusion Sodium Bicarbonate 100 meq/ 1,000 mls @ 70 mls/hr 03/08/21 09:45 03/08/21 10:42 Dextrose IV 70 mls/hr .[id number] DONAVAN Administration Insulin Human Lispro 0 unit 03/03/21 07:30 03/08/21 07:47 Insulin Lispro 100 Unit/Ml 3 Ml Vial SUBCUT Not Given QIDACHS [facility] Protocol Loperamide HCl 2 mg 03/03/21 08:16 03/03/21 10:07 Loperamide Hcl 2 Mg Capsule PO 2 mg Q4H PRN Administration diarrhea Magnesium Oxide 400 mg 03/03/21 08:30 03/08/21 08:00 Magnesium Oxide 400 Mg Tablet PO 400 mg BIDPC DONAVAN Administration Metoclopramide HCl 5 mg 03/04/21 09:21 03/08/21 04:27 Metoclopramide Hcl 10 Mg/2 Ml Vial IVPUSH 5 mg Q6H PRN Administration Nausea Nystatin 1 appl 03/03/21 15:00 03/08/21 08:16 Nystatin Powder 15 Gm Bottle TOPICAL 1 appl TID DONAVAN Administration Protocol Omeprazole 20 mg 03/03/21 09:00 03/08/21 07:59 Omeprazole 20 Mg Capsule.Dr PO 20 mg BID DONAVAN Administration Ondansetron HCl 4 mg 03/03/21 10:21 03/03/21 10:47 Ondansetron Hcl 4 Mg/2 Ml Vial IVPUSH 4 mg Q8H PRN Administration nausea Pharmacy Consult 1 each 03/02/21 15:27 Consult Rx Perform Med Rec MISCELLANE ONCE PRN Consult order Potassium Chloride 40 meq 03/03/21 09:00 03/08/21 07:59 Potassium Chloride Er 20 Meq Tab.Er.Prt PO 40 meq DAILY DONAVAN Administration Sodium Chloride 3 ml 03/03/21 08:00 03/08/21 07:58 0.9 % Sodium Chloride Flush 3 Ml Syringe IVFLUSH Not Given QSHIFT [facility] Labs CBC & Chem 7: 03/08/21 06:18 03/08/21 06:18 Labs: Laboratory Results - last 24 hr 03/07/21 03/07/21 03/07/21 11:14 15:35 20:24 MCV MCH MCHC RDW Plt Count MPV Absolute Nucleated RBC Nucleated RBC % (auto) Anion Gap Estim Creat Clear Calc Estimated GFR POC Glucose 144 H 185 H 178 H Fasting Glucose Calcium 03/08/21 03/08/21 03/08/21 06:18 06:18 07:31 MCV 100.9 H MCH 32.5 MCHC 32.2 RDW 18.9 H Plt Count 56 L MPV 12.2 Absolute Nucleated RBC 0.000 Nucleated RBC % (auto) 0.0 Anion Gap 9 L Estim Creat Clear Calc 45.9 Estimated GFR 36 POC Glucose 106 Fasting Glucose 118 H Calcium 6.9 L Microbiology Microbiology Results: Microbiology 03/02/21 15:58 Blood Culture - Final Blood - Venous No growth after 5 days. 03/02/21 15:48 Blood Culture - Final Blood - Venous No growth after 5 days. Assessment and Plan (1) Neutropenic fever: Status: Resolved (2) Multiple myeloma: Status: Chronic Assessment and Plan: 75F presented with weakness, diarrhea, vomitting weakness, diarrhea, vomitting cdif negative - imodium zofran, reglan emily with metabolic acidosis due to hypotension sodium bicarb iv monitor LUE cellulits ancef, doppler rule out dvt UTI klebsiella levaquin MM on chemo with pancytopenia atovaquone, acycloivir hematology eval appreciated - gravix 480mg times 1, 1 unit prbc, monitor cbc DM insulin Quality Stroke Does the patient have a stroke diagnosis?: No VTE Prior VTE?: No VTE Risk Level:: Medical - moderate - high VTE Device Contraindication: N/A - Device Ordered VTE Drug Contraindication: Treatment Not Tolerated
[2021-03-08] MEDS: Insulin Lispro 100 UNIT/ML 3 ML VIAL SUBCUT ×3 (11:49→21:30)
[2021-03-08 12:01] LABS: Glucose, Whole Blood 169 mg/dL (60-115)
--- NOTE | 2021-03-08 15:39 | MHC.CLN ---
F/U PATIENT APPEARS TO BE EATING WELL. CONTINUES WITH STAGE II WOUND TO RIGHT BUTTOCKS. HAS ORDER FOR ENSURE SUPPLEMENT TO PROMOTE WOUND HEALING, 240 ML BID (700 KCAL, 40 G PROTEIN).
[2021-03-08 16:28] LABS: Glucose, Whole Blood 161 mg/dL (60-115)
[2021-03-08 20:33] LABS: Glucose, Whole Blood 170 mg/dL (60-115)
[2021-03-08] MEDS: Acetaminophen 325 MG TABLET 650 MG PO (21:27)
[2021-03-08] MEDS: levoFLOXacin/D5W 500 MG/100 ML PIGGYBACK 100 MG IV (21:27)
[2021-03-08] MEDS: Lidocaine 4 % Patch ADH..PATCH 1 PATCH TRANSDERMA (23:04)
[2021-03-09] VITALS (7 sets, daily range): BP systolic 100–124; BP diastolic 54–61; PULSE 103–117; RESP 16–19; TEMP 36.1–36.7; O2SAT 98–100
[2021-03-09] MEDS: Sodium Bicarbonate 8.4% 100 MEQ in Dextrose 5 % 900 ML 70 MEQ IV ×2 (02:22→18:21)
[2021-03-09] MEDS: Metoclopramide HCl 10 MG/2 ML VIAL 5 MG IVPUSH (06:50)
[2021-03-09 07:16] LABS: Hematocrit 26.7 % (37-47); Hemoglobin 8.7 g/dl (12.0-16.0); Mean Corpuscular HGB Conc 32.6 g/dl (31.0-35.0); Mean Corpuscular Hemoglobin 32.2 pg (27.0-33.0); Mean Corpuscular Volume 98.9 fL (80-98); Red Cell Distribution Width 19.1 % (11.0-16.0)
[2021-03-09 07:18] LABS: Platelet Count 52 X10*3/uL (160-400); WBC ABN SCTR FOR CBC 1
[2021-03-09 07:34] LABS: Glucose, Whole Blood 85 mg/dL (60-115)
[2021-03-09 07:49] LABS: Anion Gap 8 (12-20); Blood Urea Nitrogen 15 mg/dL (9-16); Calcium 6.8 mg/dL (8.4-10.2); Carbon Dioxide 17 mmol/L (22-29); Chloride 116 mmol/L (96-108); Estimated Glomerular Filt Rate 32; Glucose Fasting 93 mg/dL (60-99); Potassium 4.1 mmol/L (3.3-5.1); Sodium 137 mmol/L (135-145)
[2021-03-09 08:23] LABS: Acanthocytes 1+ (0-2) /OIF; Band Neutrophils Percent 16 % (3-5); Eosinophils Percent Manual 1 % (0-4); Lymphocytes Percent Manual 4 % (20-40); Neutrophils Percent Manual 79 % (45-73); Platelet Estimate DECREASED (NORMAL); Platelet Morphology Comment NORMAL; RBC Morphology NOTED
[2021-03-09 08:24] LABS: Lymphocytes Absolute Manual 0.2 X10*3/uL (0.6-4.8); Neutrophils Absolute Manual 3.7 X10*3/uL (2.2-7.9); White Blood Count 3.9 X10*3/uL (4.8-10.8)
[2021-03-09] MEDS: Atovaquone 750 MG/5 ML ORAL.SUSP 1500 MG PO (08:25)
[2021-03-09] MEDS: Aspirin 81 MG TAB.CHEW PO (08:25)
[2021-03-09] MEDS: DULoxetine HCl 20 MG CAPSULE.DR PO (08:25)
[2021-03-09] MEDS: Omeprazole 20 MG CAPSULE.DR PO ×2 (08:25→21:53)
[2021-03-09] MEDS: Magnesium Oxide 400 MG TABLET PO ×2 (08:25→16:48)
[2021-03-09] MEDS: Potassium Chloride ER 20 MEQ TAB.ER.PRT 40 MEQ PO (08:25)
[2021-03-09] MEDS: Acyclovir 200 MG CAPSULE 400 MG PO (08:25)
[2021-03-09] MEDS: 0.9 % Sodium Chloride Flush 3 ML SYRINGE IVFLUSH (08:36)
[2021-03-09] MEDS: Nystatin Powder 15 GM BOTTLE 1 APPL TOPICAL (08:36)
--- NOTE | 2021-03-09 09:52 | P.PNIM_ITS ---
Subjective Subjective Date of Service: 03/09/21 Interval History: feeliing better today, still very weak Cardiovascular Cardiovascular: Reports no additional cardiovascular complaints Gastrointestinal Gastrointestinal: Reports no additional gastrointestinal complaints Physical Exam Vital Signs: Vital Signs: Last Vital Signs Temp 97.2 F 03/09/21 08:00 Pulse 103 H 03/09/21 08:00 Resp 16 03/09/21 08:00 BP 124/61 03/09/21 08:00 Pulse Ox 99 03/09/21 08:00 Body Mass Index 37.5 General: AO X 3, no acute distress Resp:? CTA bilateral CVS: S1,S2,RRR, anasarca GI: soft, non tender, non distended Neuro:? motor grossly intact Psych: appropriate affect LUE erythema improved, but tender Objective Data Current Medications Generic Name Dose Route Start Last Admin Trade Name Freq PRN Reason Stop Dose Admin Acetaminophen 650 mg 03/03/21 00:22 03/08/21 21:27 Acetaminophen 325 Mg Tablet PO 650 mg Q6H PRN Administration Pain, Mild (Pain Scale 1-3) Acyclovir 400 mg 03/03/21 09:00 03/09/21 08:25 Acyclovir 200 Mg Capsule PO 400 mg DAILY DONAVAN Administration Aspirin 81 mg 03/03/21 09:00 03/09/21 08:25 Aspirin 81 Mg Tab.Chew PO 81 mg DAILY DOANVAN Administration Atovaquone 1,500 mg 03/03/21 09:00 03/09/21 08:25 Atovaquone 750 Mg/5 Ml Oral.Susp PO 1,500 mg DAILY DONAVAN Administration Calcium Carbonate 500 mg 03/03/21 09:00 03/09/21 08:25 Calcium Carbonate 500 Mg Tablet PO 500 mg BID DONAVAN Administration [place] Butter/Zinc Oxide 1 supp 03/03/21 11:23 [place] Butter/Zinc Oxide Supp.Rect [place] BID PRN pain Dextrose 25 gm 03/03/21 00:32 Dextrose 50 % 25 Gm/50 Ml Vial IVPUSH Q15M PRN per Hypoglycemia Standing Ord. Protocol Duloxetine HCl 20 mg 03/03/21 09:00 03/09/21 08:25 Duloxetine Hcl 20 Mg Capsule.Dr PO 20 mg DAILY DONAVAN Administration Glucose 15 gm 03/03/21 00:32 Glucose Gel 15 Gm Gel..Gram. PO Q15M PRN per Hypoglycemia Standing Ord. Protocol Hydrocortisone 1 appl 03/03/21 00:26 Hydrocortisone 1 % Ointment 28.35 Gm Tube TOPICAL DAILY PRN Hemorrhoids Protocol Cefazolin Sodium 1 gm/ Sodium 50 mls @ 100 mls/hr 03/06/21 16:00 03/09/21 09:13 Chloride IV Infused Q8H [facility] Infusion Levofloxacin 500 mg in 100 mls @ 100 mls/hr 03/06/21 20:00 03/08/21 22:27 Levaquin IV Infused Q24H [facility] Infusion Sodium Bicarbonate 100 meq/ 1,000 mls @ 70 mls/hr 03/08/21 09:45 03/09/21 02:22 Dextrose IV 70 mls/hr .[id number] DONAV[facility] Administration Insulin Human Lispro 0 unit 03/03/21 07:30 03/09/21 07:37 Insulin Lispro 100 Unit/Ml 3 Ml Vial SUBCUT Not Given QIDACHS [facility] Protocol Loperamide HCl 2 mg 03/03/21 08:16 03/03/21 10:07 Loperamide Hcl 2 Mg Capsule PO 2 mg Q4H PRN Administration diarrhea Magnesium Oxide 400 mg 03/03/21 08:30 03/09/21 08:25 Magnesium Oxide 400 Mg Tablet PO 400 mg BIDPC DONAVAN Administration Metoclopramide HCl 5 mg 03/04/21 09:21 03/09/21 06:50 Metoclopramide Hcl 10 Mg/2 Ml Vial IVPUSH 5 mg Q6H PRN Administration Nausea Nystatin 1 appl 03/03/21 15:00 03/09/21 08:36 Nystatin Powder 15 Gm Bottle TOPICAL 1 appl TID DONAVAN Administration Protocol Omeprazole 20 mg 03/03/21 09:00 03/09/21 08:25 Omeprazole 20 Mg Capsule.Dr PO 20 mg BID DONAVAN Administration Ondansetron HCl 4 mg 03/03/21 10:21 03/03/21 10:47 Ondansetron Hcl 4 Mg/2 Ml Vial IVPUSH 4 mg Q8H PRN Administration nausea Pharmacy Consult 1 each 03/02/21 15:27 Consult Rx Perform Med Rec MISCELLANE ONCE PRN Consult order Potassium Chloride 40 meq 03/03/21 09:00 03/09/21 08:25 Potassium Chloride Er 20 Meq Tab.Er.Prt PO 40 meq DAILY DONAVAN Administration Sodium Chloride 3 ml 03/03/21 08:00 03/09/21 08:36 0.9 % Sodium Chloride Flush 3 Ml Syringe IVFLUSH 3 ml [facility] Administration Labs CBC & Chem 7: 03/09/21 06:45 03/09/21 06:45 Labs: Laboratory Results - last 24 hr 03/08/21 03/08/21 03/08/21 11:12 11:30 16:11 MCV MCH MCHC RDW Plt Count MPV Immature Gran % (Auto) Neut % (Auto) Lymph % (Auto) [place] % (Auto) Eos % (Auto) Baso % (Auto) Lymph # (Auto) [place] # (Auto) Eos # (Auto) Baso # (Auto) Abs Immat Gran (auto) Absolute Neuts (auto) Absolute Nucleated RBC Nucleated RBC % (auto) Neutrophils % (Manual) Band Neutrophils % Lymphocytes % (Manual) Eosinophils % (Manual) Abs Neuts (Manual) Lymphocytes # (Manual) Platelet Estimate Plt Morphology Comment RBC Morphology Acanthocytes (Spur) Anion Gap Estim Creat Clear Calc Estimated GFR POC Glucose 169 H 161 H Fasting Glucose Calcium Blood Type O Positive Antibody Screen NEGATIVE Crossmatch See Detail 03/08/21 03/09/21 03/09/21 20:18 06:45 06:45 MCV 98.9 H MCH 32.2 MCHC 32.6 RDW 19.1 H Plt Count 52 L MPV 12.0 Immature Gran % (Auto) Cancelled Neut % (Auto) Cancelled Lymph % (Auto) Cancelled [place] % (Auto) Cancelled Eos % (Auto) Cancelled Baso % (Auto) Cancelled Lymph # (Auto) Cancelled [place] # (Auto) Cancelled Eos # (Auto) Cancelled Baso # (Auto) Cancelled Abs Immat Gran (auto) Cancelled Absolute Neuts (auto) Cancelled Absolute Nucleated RBC 0.000 Nucleated RBC % (auto) 0.0 Neutrophils % (Manual) 79 H Band Neutrophils % 16 H Lymphocytes % (Manual) 4 L Eosinophils % (Manual) 1 Abs Neuts (Manual) 3.7 Lymphocytes # (Manual) 0.2 L Platelet Estimate DECREASED Plt Morphology Comment NORMAL RBC Morphology NOTED Acanthocytes (Spur) 1+ (0-2) Anion Gap 8 L Estim Creat Clear Calc 41.0 Estimated GFR 32 POC Glucose 170 H Fasting Glucose 93 Calcium 6.8 L Blood Type Antibody Screen Crossmatch 03/09/21 07:19 MCV MCH MCHC RDW Plt Count MPV Immature Gran % (Auto) Neut % (Auto) Lymph % (Auto) [place] % (Auto) Eos % (Auto) Baso % (Auto) Lymph # (Auto) [place] # (Auto) Eos # (Auto) Baso # (Auto) Abs Immat Gran (auto) Absolute Neuts (auto) Absolute Nucleated RBC Nucleated RBC % (auto) Neutrophils % (Manual) Band Neutrophils % Lymphocytes % (Manual) Eosinophils % (Manual) Abs Neuts (Manual) Lymphocytes # (Manual) Platelet Estimate Plt Morphology Comment RBC Morphology Acanthocytes (Spur) Anion Gap Estim Creat Clear Calc Estimated GFR POC Glucose 85 Fasting Glucose Calcium Blood Type Antibody Screen Crossmatch Assessment and Plan (1) Neutropenic fever: Status: Resolved (2) Multiple myeloma: Status: Chronic Assessment and Plan: 75F presented with weakness, diarrhea, vomitting weakness, diarrhea, vomitting cdif negative - imodium zofran, reglan improved emily with metabolic acidosis due to hypotension continue sodium bicarb iv monitor LUE cellulits ancef, doppler negative for dvt UTI klebsiella levaquin MM on chemo with pancytopenia atovaquone, acycloivir hematology eval appreciated - 03/08: gravix 480mg times 1, 1 unit prbc hgb improved 7.4 to 8.7 DM insulin Quality Stroke Does the patient have a stroke diagnosis?: No VTE Prior VTE?: No VTE Risk Level:: Medical - moderate - high VTE Device Contraindication: N/A - Device Ordered VTE Drug Contraindication: Treatment Not Tolerated
[2021-03-09 11:43] LABS: Glucose, Whole Blood 148 mg/dL (60-115)
--- NOTE | 2021-03-09 14:23 | MHC.CM.PN ---
PER MULTIDISCIPLINARY ROUNDS PT NOT READY FOR D/C TODAY, POSSIBLY TOMORROW AFTER CONSULTING W/ONCOLOGY, DR PRITCHETT IS ON VACATION AND DR CABELLO IS COVERING, [facility] REFERRAL UPDATED VIA [employer], BED OFFER DEPENDANT ON ONCOLOGY OKAYING CHEMO TO BE ON HOLD WHILE INPT.
[2021-03-09 16:23] LABS: Glucose, Whole Blood 169 mg/dL (60-115)
[2021-03-09] MEDS: Insulin Lispro 100 UNIT/ML 3 ML VIAL SUBCUT ×2 (16:47→21:54)
[2021-03-09] MEDS: oxyCODONE HCl Immed Release 5 MG TABLET PO (18:17)
[2021-03-09 20:48] LABS: Glucose, Whole Blood 164 mg/dL (60-115)
[2021-03-09] MEDS: levoFLOXacin/D5W 500 MG/100 ML PIGGYBACK 100 MG IV (21:53)
[2021-03-10] VITALS (7 sets, daily range): BP systolic 108–130; BP diastolic 56–86; PULSE 102–114; RESP 16–19; TEMP 36.1–36.6; O2SAT 98–100
[2021-03-10] MEDS: oxyCODONE HCl Immed Release 5 MG TABLET PO ×2 (01:49→19:51)
[2021-03-10 06:37] LABS: Hematocrit 26.2 % (37-47); Hemoglobin 8.5 g/dl (12.0-16.0); Mean Corpuscular HGB Conc 32.4 g/dl (31.0-35.0); Mean Corpuscular Hemoglobin 32.1 pg (27.0-33.0); Mean Corpuscular Volume 98.9 fL (80-98); Mean Platelet Volume 12.3 fL (9.4-12.3); Red Blood Count 2.65 X10*6/uL (4.20-5.50); Red Cell Distribution Width 19.3 % (11.0-16.0); White Blood Count 3.3 X10*3/uL (4.8-10.8)
[2021-03-10 06:39] LABS: Platelet Count 58 X10*3/uL (160-400)
[2021-03-10 07:33] LABS: Glucose, Whole Blood 100 mg/dL (60-115)
[2021-03-10 08:07] LABS: Anion Gap 7 (12-20); Carbon Dioxide 19 mmol/L (22-29); Chloride 112 mmol/L (96-108); Estimated Glomerular Filt Rate 30; Potassium 4.2 mmol/L (3.3-5.1); Sodium 134 mmol/L (135-145)
[2021-03-10] MEDS: Sodium Bicarbonate 8.4% 100 MEQ in Dextrose 5 % 900 ML 70 MEQ IV ×2 (08:30→23:58)
[2021-03-10] MEDS: 0.9 % Sodium Chloride Flush 3 ML SYRINGE IVFLUSH (08:52)
[2021-03-10] MEDS: Atovaquone 750 MG/5 ML ORAL.SUSP 1500 MG PO (08:53)
[2021-03-10] MEDS: Potassium Chloride ER 20 MEQ TAB.ER.PRT 40 MEQ PO (08:56)
[2021-03-10] MEDS: Aspirin 81 MG TAB.CHEW PO (08:56)
[2021-03-10] MEDS: Magnesium Oxide 400 MG TABLET PO ×2 (08:56→16:44)
[2021-03-10] MEDS: DULoxetine HCl 20 MG CAPSULE.DR PO (08:56)
[2021-03-10] MEDS: Acyclovir 200 MG CAPSULE 400 MG PO (08:56)
[2021-03-10] MEDS: Omeprazole 20 MG CAPSULE.DR PO ×2 (08:56→21:00)
--- NOTE | 2021-03-10 10:11 | P.PNIM_ITS ---
Subjective Subjective Date of Service: 03/10/21 Interval History: feels relatively well today Cardiovascular Cardiovascular: Reports no additional cardiovascular complaints Respiratory Respiratory: Reports no additional respiratory complaints Physical Exam Vital Signs: Vital Signs: Last Vital Signs Temp 97.4 F 03/10/21 07:40 Pulse 109 H 03/10/21 07:40 Resp 16 03/10/21 07:40 BP 108/66 03/10/21 07:40 Pulse Ox 98 03/10/21 07:40 Body Mass Index 37.5 General: AO X 3, no acute distress Resp:? CTA bilateral CVS: S1,S2,RRR, anasarca GI: soft, non tender, non distended Neuro:? motor grossly intact Psych: appropriate affect LUE erythema improved, but tender Objective Data Current Medications Generic Name Dose Route Start Last Admin Trade Name Freq PRN Reason Stop Dose Admin Acetaminophen 650 mg 03/03/21 00:22 03/08/21 21:27 Acetaminophen 325 Mg Tablet PO 650 mg Q6H PRN Administration Pain, Mild (Pain Scale 1-3) Acyclovir 400 mg 03/03/21 09:00 03/10/21 08:56 Acyclovir 200 Mg Capsule PO 400 mg DAILY DONAVAN Administration Aspirin 81 mg 03/03/21 09:00 03/10/21 08:56 Aspirin 81 Mg Tab.Chew PO 81 mg DAILY DONAVAN Administration Atovaquone 1,500 mg 03/03/21 09:00 03/10/21 08:53 Atovaquone 750 Mg/5 Ml Oral.Susp PO 1,500 mg DAILY DONAVAN Administration Calcium Carbonate 500 mg 03/03/21 09:00 03/10/21 08:56 Calcium Carbonate 500 Mg Tablet PO 500 mg BID DONAVAN Administration [place] Butter/Zinc Oxide 1 supp 03/03/21 11:23 [place] Butter/Zinc Oxide Supp.Rect HI BID PRN pain Dextrose 25 gm 03/03/21 00:32 Dextrose 50 % 25 Gm/50 Ml Vial IVPUSH Q15M PRN per Hypoglycemia Standing Ord. Protocol Duloxetine HCl 20 mg 03/03/21 09:00 03/10/21 08:56 Duloxetine Hcl 20 Mg Capsule.Dr PO 20 mg DAILY DONAVAN Administration Glucose 15 gm 03/03/21 00:32 Glucose Gel 15 Gm Gel..Gram. PO Q15M PRN per Hypoglycemia Standing Ord. Protocol Hydrocortisone 1 appl 03/03/21 00:26 Hydrocortisone 1 % Ointment 28.35 Gm Tube TOPICAL DAILY PRN Hemorrhoids Protocol Cefazolin Sodium 1 gm/ Sodium 50 mls @ 100 mls/hr 03/06/21 16:00 03/10/21 09:28 Chloride IV Infused Q8H [facility] Infusion Levofloxacin 500 mg in 100 mls @ 100 mls/hr 03/06/21 20:00 03/10/21 00:05 Levaquin IV Infused Q24H [facility] Infusion Sodium Bicarbonate 100 meq/ 1,000 mls @ 70 mls/hr 03/08/21 09:45 03/10/21 08:30 Dextrose IV 70 mls/hr .[id number] [facility] Administration Insulin Human Lispro 0 unit 03/03/21 07:30 03/10/21 07:36 Insulin Lispro 100 Unit/Ml 3 Ml Vial SUBCUT Not Given QIDACHS [facility] Protocol Loperamide HCl 2 mg 03/03/21 08:16 03/03/21 10:07 Loperamide Hcl 2 Mg Capsule PO 2 mg Q4H PRN Administration diarrhea Magnesium Oxide 400 mg 03/03/21 08:30 03/10/21 08:56 Magnesium Oxide 400 Mg Tablet PO 400 mg BIDPC DON[facility] Administration Metoclopramide HCl 5 mg 03/04/21 09:21 03/09/21 06:50 Metoclopramide Hcl 10 Mg/2 Ml Vial IVPUSH 5 mg Q6H PRN Administration Nausea Nystatin 1 appl 03/03/21 15:00 03/10/21 08:57 Nystatin Powder 15 Gm Bottle TOPICAL Not Given TID [facility] Protocol Omeprazole 20 mg 03/03/21 09:00 03/10/21 08:56 Omeprazole 20 Mg Capsule.Dr PO 20 mg BID ODNAVAN Administration Ondansetron HCl 4 mg 03/03/21 10:21 03/03/21 10:47 Ondansetron Hcl 4 Mg/2 Ml Vial IVPUSH 4 mg Q8H PRN Administration nausea Oxycodone HCl 5 mg 03/09/21 17:52 03/10/21 01:49 Oxycodone Hcl Immed Release 5 Mg Tablet PO 5 mg Q6H PRN Administration pain Pharmacy Consult 1 each 03/02/21 15:27 Consult Rx Perform Med Rec MISCELLANE ONCE PRN Consult order Potassium Chloride 40 meq 03/03/21 09:00 03/10/21 08:56 Potassium Chloride Er 20 Meq Tab.Er.Prt PO 40 meq DAILY DONAVAN Administration Sodium Chloride 3 ml 03/03/21 08:00 03/10/21 08:52 0.9 % Sodium Chloride Flush 3 Ml Syringe IVFLUSH 3 ml QSHIFT [facility] Administration Labs CBC & Chem 7: 03/10/21 06:10 03/10/21 06:10 Labs: Laboratory Results - last 24 hr 03/09/21 03/09/21 03/09/21 11:12 16:14 20:39 MCV MCH MCHC RDW Plt Count MPV Absolute Nucleated RBC Nucleated RBC % (auto) Anion Gap Estim Creat Clear Calc Estimated GFR POC Glucose 148 H 169 H 164 H Calcium 03/10/21 03/10/21 03/10/21 06:10 06:10 07:23 MCV 98.9 H MCH 32.1 MCHC 32.4 RDW 19.3 H Plt Count 58 L MPV 12.3 Absolute Nucleated RBC 0.000 Nucleated RBC % (auto) 0.0 Anion Gap 7 L Estim Creat Clear Calc 39.0 Estimated GFR 30 POC Glucose 100 Calcium 6.6 L Assessment and Plan (1) Neutropenic fever: Status: Resolved (2) Multiple myeloma: Status: Chronic Assessment and Plan: 75F presented with weakness, diarrhea, vomitting weakness, diarrhea, vomitting cdif negative - imodium zofran, reglan improved feels relatively well today emily with metabolic acidosis due to hypotension hypotension better, has been receiving IVF with bicarb, but creatinine slowly worsening, 1.66 today nephro eval monitor LUE cellulits ancef, doppler negative for dvt UTI klebsiella levaquin MM on chemo with pancytopenia atovaquone, acycloivir hematology eval appreciated - 03/08: gravix 480mg times 1, 1 unit prbc hgb improved 7.4 to 8.7 8.5 today DM insulin Quality Stroke Does the patient have a stroke diagnosis?: No VTE Prior VTE?: No VTE Risk Level:: Medical - moderate - high VTE Device Contraindication: N/A - Device Ordered VTE Drug Contraindication: Treatment Not Tolerated
[2021-03-10 11:15] LABS: Glucose Fasting 121 mg/dL (60-99)
[2021-03-10 11:27] LABS: Glucose, Whole Blood 148 mg/dL (60-115)
[2021-03-10 12:52] LABS: Blood Urea Nitrogen 15 mg/dL (9-16); Calcium 6.7 mg/dL (8.4-10.2); Creatinine Clr Calc Pharmacy 38.3
--- NOTE | 2021-03-10 14:16 | MHC.CLN ---
F/U APPEARS TO BE EATING WELL. CONTINUE DIABETIC 2000 KCAL DIET, NEUTROPENIC PRECAUTIONS. ENSURE SUPPLEMENT TO PROMOTE WOUND HEALING, 240 ML BID (700 KCAL, 40 G PROTEIN).
--- NOTE | 2021-03-10 14:45 | MHC.CM.PN ---
PER MULTIDISCIPLINARY ROUNDS NO D/C PLANNED FOR TODAY D/T WORSENING RENAL FX. [facility] WILL CONT TO FOLLOWING.
[2021-03-10 16:24] LABS: Glucose, Whole Blood 130 mg/dL (60-115)
[2021-03-10 18:08] LABS: Creatinine Urine 67.43 mg/dL
[2021-03-10 18:22] LABS: Total Protein Urine Random 139 mg/dL (<12)
[2021-03-10] MEDS: levoFLOXacin/D5W 500 MG/100 ML PIGGYBACK 100 MG IV (19:54)
[2021-03-10 20:25] LABS: Glucose, Whole Blood 162 mg/dL (60-115)
[2021-03-10] MEDS: Insulin Lispro 100 UNIT/ML 3 ML VIAL SUBCUT (21:00)
[2021-03-10] MEDS: Nystatin Powder 15 GM BOTTLE 1 APPL TOPICAL (21:08)
[2021-03-11 03:07] VITALS: BP 149/79; PULSE 101; RESP 18; TEMP 36.3; O2SAT 100
[2021-03-11] MEDS: oxyCODONE HCl Immed Release 5 MG TABLET PO ×4 (03:16→23:44)
[2021-03-11 07:38] LABS: Glucose, Whole Blood 103 mg/dL (60-115)
[2021-03-11 07:52] VITALS: BP 131/68; PULSE 105; RESP 16; TEMP 36.7; O2SAT 100
[2021-03-11] MEDS: DULoxetine HCl 20 MG CAPSULE.DR PO (08:51)
[2021-03-11] MEDS: Omeprazole 20 MG CAPSULE.DR PO ×2 (08:51→21:06)
[2021-03-11] MEDS: Acyclovir 200 MG CAPSULE 400 MG PO (08:51)
[2021-03-11] MEDS: Potassium Chloride ER 20 MEQ TAB.ER.PRT 40 MEQ PO (08:51)
[2021-03-11] MEDS: Magnesium Oxide 400 MG TABLET PO ×2 (08:51→18:02)
[2021-03-11] MEDS: Atovaquone 750 MG/5 ML ORAL.SUSP 1500 MG PO (08:52)
[2021-03-11] MEDS: Nystatin Powder 15 GM BOTTLE 1 APPL TOPICAL ×3 (08:52→23:25)
[2021-03-11] MEDS: Aspirin 81 MG TAB.CHEW PO (08:52)
[2021-03-11] MEDS: 0.9 % Sodium Chloride Flush 3 ML SYRINGE IVFLUSH ×2 (08:53→16:01)
[2021-03-11] MEDS: Metoclopramide HCl 10 MG/2 ML VIAL 5 MG IVPUSH (09:54)
--- NOTE | 2021-03-11 10:20 | CONS_ITS ---
DATE OF SERVICE: 03/10/2021 REASON FOR CONSULTATION: I was called to see this patient to assist in the management of acute kidney injury. HISTORY OF PRESENT ILLNESS: To summarize, Klaudia is a 75-year-old woman with history of multiple myeloma. She has been on Revlimid and Velcade. She was admitted almost a week ago with intense pain in the anal region and she was found to have hemorrhoids. She has also had chronic diarrhea. She has essentially normal renal function with a baseline creatinine of less than 1 mg/dL. During the course of the admission, she had episodes of hypotension and there has been a significant bump in her serum creatinine 48 hours ago up to 1.5 and in the last 48 hours, the serum creatinine has been gradually increasing up to 1.8 hence this consultation. Ongoing medical problems includes history of diabetes mellitus, hypertension, multiple myeloma, history of hypercalcemia, pancytopenia, and hypothyroidism. FAMILY HISTORY: Not significant for this admission. No history of any kidney disease. SURGICAL HISTORY: Includes knee replacement, left hip replacement. SOCIAL HISTORY: Lives with the family. No history of any smoking or alcohol abuse. ALLERGIES: SHE IS ALLERGIC TO CODEINE, LISINOPRIL, AND BACTRIM. MEDICATIONS: At the time of admission included Tylenol, acyclovir, aspirin, atovaquone, duloxetine, hydrocortisone cream, magnesium oxide, calcium carbonate, vitamin D, omeprazole, Zofran, potassium chloride, and spironolactone 25 mg. All the current medications are reviewed. REVIEW OF SYSTEMS: Positive for diarrhea. No abdominal pain, no nausea, vomiting. No polyuria, polydipsia. No oliguria. No fever. No rash. No joint pains. All other systems were reviewed. PHYSICAL EXAMINATION: GENERAL: Klaudia is a 75-year-old woman who appears comfortable, not in any distress. NECK: Supple. No JVD. HEENT: Mucosa is moist. LUNGS: Air entry equal. No rales. HEART: S1, S2 heard. No gallop. No rub. ABDOMEN: Obese, soft, nontender. EXTREMITIES: No edema. No rash. No clubbing. SKIN: No new rash. VITAL SIGNS: Blood pressure was 108/66, pulse 109. She is afebrile. Temperature 97.4. LABORATORY DATA: As of this morning, sodium 135, potassium 4.2, CO2 19, serum creatinine 1.66. WBC is 3.3, hemoglobin 8.5, platelets [id number]. IMPRESSION: A 75-year-old woman with multiple myeloma, has sustained acute kidney injury. She has pancytopenia as well. The different diagnosis of acute kidney injury would include hypoperfusion from the low blood pressure she has had. She could have progressed to acute tubular necrosis. Other possibilities including obstructive uropathy should be considered. In the setting of multiple myeloma, one would certainly consider myeloma of kidney. 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 My recommendation would be to obtain a spot urine for sodium, creatinine, protein and urine for electrophoresis. In the meantime, I will optimize the blood pressure and avoid hypotension. Agree with IV hydration, keep intake more than the output and keep her on a positive fluid balance. She has mild hyperchloremic metabolic acidosis and we can add oral sodium bicarbonate to correct this. Klaudia has persistent hypocalcemia, and agree with potassium supplementation with vitamin D. we will check the intact PTH as well and see if she requires any Calcitriol. At the present time, there is no indication for dialysis. Based on the outcome of the above investigations, further workup will be planned including possible renal biopsies if renal function does not improve. We will follow her along with the team. Tye Vu MD BPA/MODL / [id number]
--- NOTE | 2021-03-11 10:25 | P.PNNP_ITS ---
Subjective Subjective Date of Service: 03/12/21 Interval history: Events noted Feels about the same Non oliguric Family at bedside Physical Exam Vital Signs: Vital Signs: Last Vital Signs Temp 98.1 F 03/11/21 07:52 Pulse 105 H 03/11/21 07:52 Resp 16 03/11/21 07:52 BP 131/68 03/11/21 07:52 Pulse Ox 100 03/11/21 07:52 Body Mass Index 37.5 Const: General: no acute distress Orientation/consciousness: oriented to person Neck: Neck: Yes supple Resp: Auscultation: clear to auscultation bilaterally Cardio: Heart sounds: no murmurs and no rubs GI: Palpation (GI): Soft to palpation Auscultation: normal bowel sounds Neuro: General: oriented to person Motor exam (neuro): no asterixis Objective Data Labs CBC & Chem 7: 03/12/21 05:25 03/12/21 05:25 Labs: Laboratory Results - last 24 hr 03/10/21 03/10/21 03/10/21 06:10 11:23 16:20 BUN 15 Creatinine 1.69 H Estim Creat Clear Calc 38.3 POC Glucose 148 H 130 H Fasting Glucose 121 H Calcium 6.7 L U Random Total Protein Ur Random Sodium Urine Creatinine 03/10/21 03/10/21 03/11/21 16:50 20:19 07:24 BUN Creatinine Estim Creat Clear Calc POC Glucose 162 H 103 Fasting Glucose Calcium U Random Total Protein 139 H Ur Random Sodium 56.0 Urine Creatinine 67.43 Microbiology Microbiology Results: Microbiology 03/02/21 15:58 Blood - Venous Blood Culture - Final No growth after 5 days. 03/02/21 15:48 Blood - Venous Blood Culture - Final No growth after 5 days. 03/03/21 01:12 Stool Stool Culture - Final 03/02/21 18:14 Urine clean catch - Urine alarcon top Urine Culture - Final Klebsiella pneumoniae Procedures Date of Service Date of Service: 03/11/21 Assessment & Plan Assessment and plan (1) LORI (acute kidney injury): Status: Acute Assessment and Plan: LORI in a setting of MM Non oliguric UPEP pending Urine has > 2gm protein DDX: ATN/Myeloma kidney/AIN/ and obstruction Plan: Keep IV F I > O Renal sonogram Await Chem 7 and urine studies No indication for dialysis (2) Multiple myeloma: Status: Chronic Assessment and Plan: Management per Oncology Transfuse PRBC as needed Time Spent With Patient Time: Total time spent is greater than 50% in coordination of care (as docu mented) at patient's floor/unit and/or counseling patient: Time with patient: 15 - 24 minutes Progress Note: Quality Stroke Does the patient have a stroke diagnosis?: No
--- NOTE | 2021-03-11 10:59 | P.PNIM_ITS ---
Subjective Subjective Date of Service: 03/11/21 Review of Systems f/u on renal failure, cellulitis, multiple myoloma Constitutional Gen: no fever Resp: no sob, no cough CV: no chest, no ROBIN, no leg edema GI: No n/v, no abd pain Neuro: No confusion Physical Exam Vital Signs: Vital Signs: Last Vital Signs Temp 98.1 F 03/11/21 07:52 Pulse 105 H 03/11/21 07:52 Resp 16 03/11/21 07:52 BP 131/68 03/11/21 07:52 Pulse Ox 100 03/11/21 07:52 Body Mass Index 37.5 Gen: alert, no acute distress HEENT: NCAT, EOMI, PERRL? Neck: supple, no LAD Chest: CTAB no w/r/r Heart: RRR, no m/r/g Abd: soft, nt, NABS, no HM/SM or mass. Ext: NT, 2+ edema, Skin: no rash Neuro: A&O. No focal findings. Psych: Affect full and appropriate. Objective Data Current Medications Generic Name Dose Route Start Last Admin Trade Name Freq PRN Reason Stop Dose Admin Acetaminophen 650 mg 03/03/21 00:22 03/08/21 21:27 Acetaminophen 325 Mg Tablet PO 650 mg Q6H PRN Administration Pain, Mild (Pain Scale 1-3) Acyclovir 400 mg 03/03/21 09:00 03/11/21 08:51 Acyclovir 200 Mg Capsule PO 400 mg DAILY DONAVAN Administration Aspirin 81 mg 03/03/21 09:00 03/11/21 08:52 Aspirin 81 Mg Tab.Chew PO 81 mg DAILY DONAVAN Administration Atovaquone 1,500 mg 03/03/21 09:00 03/11/21 08:52 Atovaquone 750 Mg/5 Ml Oral.Susp PO 1,500 mg DAILY DONAVAN Administration Calcium Carbonate 500 mg 03/03/21 09:00 03/11/21 08:51 Calcium Carbonate 500 Mg Tablet PO 500 mg BID DONAVAN Administration [place] Butter/Zinc Oxide 1 supp 03/03/21 11:23 [place] Butter/Zinc Oxide Supp.Rect PA BID PRN pain Dextrose 25 gm 03/03/21 00:32 Dextrose 50 % 25 Gm/50 Ml Vial IVPUSH Q15M PRN per Hypoglycemia Standing Ord. Protocol Duloxetine HCl 20 mg 03/03/21 09:00 03/11/21 08:51 Duloxetine Hcl 20 Mg Capsule. PO 20 mg DAILY DONAVAN Administration Glucose 15 gm 03/03/21 00:32 Glucose Gel 15 Gm Gel..Gram. PO Q15M PRN per Hypoglycemia Standing Ord. Protocol Hydrocortisone 1 appl 03/03/21 00:26 Hydrocortisone 1 % Ointment 28.35 Gm Tube TOPICAL DAILY PRN Hemorrhoids Protocol Cefazolin Sodium 1 gm/ Sodium 50 mls @ 100 mls/hr 03/06/21 16:00 03/11/21 09:42 Chloride IV Infused Q8H [facility] Infusion Levofloxacin 500 mg in 100 mls @ 100 mls/hr 03/06/21 20:00 03/10/21 21:24 Levaquin IV Infused Q24H [facility] Infusion Sodium Bicarbonate 100 meq/ 1,000 mls @ 70 mls/hr 03/08/21 09:45 03/11/21 08:53 Dextrose IV Not Given .[id number] [facility] Insulin Human Lispro 0 unit 03/03/21 07:30 03/11/21 07:29 Insulin Lispro 100 Unit/Ml 3 Ml Vial SUBCUT Not Given QIDACHS [facility] Protocol Loperamide HCl 2 mg 03/03/21 08:16 03/03/21 10:07 Loperamide Hcl 2 Mg Capsule PO 2 mg Q4H PRN Administration diarrhea Magnesium Oxide 400 mg 03/03/21 08:30 03/11/21 08:51 Magnesium Oxide 400 Mg Tablet PO 400 mg BIDPC DONAVAN Administration Metoclopramide HCl 5 mg 03/04/21 09:21 03/11/21 09:54 Metoclopramide Hcl 10 Mg/2 Ml Vial IVPUSH 5 mg Q6H PRN Administration Nausea Nystatin 1 appl 03/03/21 15:00 03/11/21 08:52 Nystatin Powder 15 Gm Bottle TOPICAL 1 appl TID DONAVAN Administration Protocol Omeprazole 20 mg 03/03/21 09:00 03/11/21 08:51 Omeprazole 20 Mg Capsule. PO 20 mg BID DONAVAN Administration Ondansetron HCl 4 mg 03/03/21 10:21 03/03/21 10:47 Ondansetron Hcl 4 Mg/2 Ml Vial IVPUSH 4 mg Q8H PRN Administration nausea Oxycodone HCl 5 mg 03/09/21 17:52 03/11/21 09:54 Oxycodone Hcl Immed Release 5 Mg Tablet PO 5 mg Q6H PRN Administration pain Pharmacy Consult 1 each 03/02/21 15:27 Consult Rx Perform Med Rec MISCELLANE ONCE PRN Consult order Potassium Chloride 40 meq 03/03/21 09:00 03/11/21 08:51 Potassium Chloride Er 20 Meq Tab.Er.Prt PO 40 meq DAILY DONAVAN Administration Sodium Chloride 3 ml 03/03/21 08:00 03/11/21 08:53 0.9 % Sodium Chloride Flush 3 Ml Syringe IVFLUSH 3 ml QSHIFT DONAVAN Administration Labs CBC & Chem 7: 03/10/21 06:10 03/10/21 06:10 Labs: Laboratory Results - last 24 hr 03/10/21 03/10/21 03/10/21 06:10 11:23 16:20 Estim Creat Clear Calc 38.3 POC Glucose 148 H 130 H Fasting Glucose 121 H Calcium 6.7 L U Random Total Protein Ur Random Sodium Urine Creatinine 03/10/21 03/10/21 03/11/21 16:50 20:19 07:24 Estim Creat Clear Calc POC Glucose 162 H 103 Fasting Glucose Calcium U Random Total Protein 139 H Ur Random Sodium 56.0 Urine Creatinine 67.43 Assessment and Plan (1) Neutropenic fever: Status: Resolved (2) Multiple myeloma: Status: Chronic Assessment and Plan: 75 with DM, MM, pancytopenia, who presented w/ weakness and , N/V/Diarrhea and now with progressively worsening renal failure with concern for ATN, she als has has left Upper ext cellulitis that is rather extensive and painful. LORI--possibly d/t ATN or d/t MM--will need further investigation and posibly biopsy, Nephrlogy fllowing, repat Creatinine today weakness, diarrhea, vomitting--likely from MM, it is getting better, continue sumptomatic treatment with Zofran, Reglan and imodium. C dif is negative LUE cellulits related to diabetes and immune compromised state from Chemo--covering > 50% of the limb Continue Ancef and Levaquin, doppler negative for dvt UTI d/t -- multi drug resistant, klebsiella, sensitive to Levaquin, continue Levaquin MM on chemo with pancytopenia Empiric atovaquone, acycloivir hematology eval appreciated - 8/23: gravix 480mg times 1, 1 unit prbc hgb improved 7.4 to 8.5 DM--continue insulin, follow sugar levels Quality Stroke Does the patient have a stroke diagnosis?: No VTE Prior VTE?: No VTE Risk Level:: Medical - moderate - high VTE Device Contraindication: N/A - Device Ordered VTE Drug Contraindication: Treatment Not Tolerated
[2021-03-11] MEDS: Insulin Lispro 100 UNIT/ML 3 ML VIAL SUBCUT ×2 (11:44→21:06)
[2021-03-11 12:00] VITALS: BP 120/71; PULSE 112; RESP 18; TEMP 37.1; O2SAT 98
[2021-03-11 12:22] LABS: Glucose, Whole Blood 161 mg/dL (60-115)
[2021-03-11 14:31] LABS: Anion Gap 9 (12-20); Blood Urea Nitrogen 16 mg/dL (9-16); Calcium 6.6 mg/dL (8.4-10.2); Carbon Dioxide 20 mmol/L (22-29); Chloride 111 mmol/L (96-108); Creatinine Clr Calc Pharmacy 36.6; Estimated Glomerular Filt Rate 28; Glucose Random 180 mg/dL (60-115); Potassium 4.7 mmol/L (3.3-5.1); Sodium 135 mmol/L (135-145)
[2021-03-11 15:30] VITALS: BP 125/57; PULSE 106; RESP 20; TEMP 36.8; O2SAT 99
[2021-03-11] MEDS: Sodium Bicarbonate 8.4% 100 MEQ in Dextrose 5 % 900 ML 70 MEQ IV (16:00)
[2021-03-11 16:30] LABS: Glucose, Whole Blood 137 mg/dL (60-115)
[2021-03-11] MEDS: levoFLOXacin/D5W 500 MG/100 ML PIGGYBACK 100 MG IV (19:46)
[2021-03-11 20:00] VITALS: BP 121/54; PULSE 107; RESP 22; TEMP 36.8; O2SAT 97
[2021-03-11 20:29] LABS: Glucose, Whole Blood 161 mg/dL (60-115)
[2021-03-11] MEDS: diphenhydrAMINE HCL 50 MG/ML VIAL 25 MG IVPUSH (21:05)
[2021-03-11 23:33] VITALS: BP 102/58; PULSE 107; RESP 16; TEMP 36.2; O2SAT 98
[2021-03-12] VITALS (13 sets, daily range): BP systolic 108–155; BP diastolic 59–87; PULSE 100–113; RESP 16–21; TEMP 36.1–36.9; O2SAT 97–100
[2021-03-12] MEDS: diphenhydrAMINE HCL 50 MG/ML VIAL IVPUSH (04:05)
[2021-03-12] MEDS: EPINEPHrine 1 MG/ML VIAL 0.5 MG IM ×2 (04:10→04:15)
--- NOTE | 2021-03-12 04:17 | P.EN_ITS ---
Event Note Date of Service: 03/12/21 Event Note: informed by nurse that pt complaining of lip swelling since day sh ift, as well as sore thoar since yesterday. on my initial evaluation pt had trace swelling of lips, no tongue swelling or erythema, no pharyngeal swelling, no difficulty breathing, sating 98% on RA. Her meds were reviewed. pt was started on levoquin and ancef for tx of cellulitis and UTI oin 03/06 with no prior hx of allergic rx. pt given benadryl and magiv swish and swallow received a mssg now from nurse that pt complaining of worsening swelling of lips and tongue and SOB. Pt being given two doses of epinephrine 0.5 mg IM, as well as benadryl, and pepcid. discussed with Dr. Daigle and will be transferred to ICU. pt is DNI
[2021-03-12] MEDS: methylPREDNISolone Sod Succ 125 MG/2 ML VIAL IVPUSH (04:30)
[2021-03-12] MEDS: Famotidine/PF 20 MG/2 ML VIAL 40 MG IVPUSH (04:39)
--- NOTE | 2021-03-12 04:57 | PC.NURSE ---
pt first c/o lips swelling around 2100 md notified and iv 25 mg of benadryl was given and later on aroud 0330 am pt states and her lips looked more swollen and she states her throat feels more swelling in back of her throat feels like is closing. md notified oxygen applied on 2l she is 100 % another dose of benadryl was given 50 mg iv push and follow by epi given by [facility] sup. at this time decision is made to transfer pt to icu vs bp 118/48 100 % on 2 l 96.8 temp hr 102 pt is AXOX3 STARRING TO FEEL LITTLE BETTER., AND DENIES TO call at this time she said will call her later report given to icu nurse.
--- NOTE | 2021-03-12 05:12 | W.PM.CCCN ---
History of Present Illness Data of Consult Service Date: 03/12/21 Requesting physician: Dirk Rich Primary Care Provider: Iveth Cowart MD HPI Reason for consult: Allergic reaction This is a 75-year-old female with past medical history of multiple myeloma (Currently on chemotherapy),? diabetes mellitus ,? hypertension, hyperlipidemia, and obstructive sleep apnea? who has had multiple hospitalizations at this facility, admitted to Hospital Medicine on 03/03/21? nausea vomiting and diarrhea? and noted to have? neutropenic fever.? Hospital course? complicated by multi drug resistant UTI, worsening renal failure concern for ATN as well as left upper extremity cellulitis.? ?Earlier tonight,? patient and son reported to nursing staff lip swelling as well as mild sore throat? at this time patient hemodynamically stable,? no respiratory distress with no significant signs of angioedema.? ? She received Benadryl at this time. Patient lip swelling progressively got worse through the night, with now showing signs of angioedema . ? Lips swelling and tongue swelling noted,? and the patient also reported shortness of breath. ? She received 2 doses of epinephrine 0.5 mg IM, additional Benadryl and Pepcid.? ?Patient reports eating Tangerines in the am, that caused some tongue burning but no other new foods.? Levaquin and? cefazolin started on 03/06/2021.? Patient confirms her only allergies are? to Bactrim, codeine and lisinopril.? On my assessment, ? patient alert and oriented x3, able to speak full sentences.? Significant lip swelling as well as tongue swelling noted. Patient resting comfortably on the bed.? Satting 100% on 2L via NC.? Lungs are clear? bilaterally,? no stridor.? Vital signs are stable. ?Patient will be admitted to the ICU for management and? hemodynamically monitoring of angioedema from possible allergic reaction? Review of Systems Constitutional: Constitutional: Reports fatigue ENT: Reports sore throat and Reports tongue swelling Comments: Lip swelling Cardiovascular: Cardiovascular: Reports rapid heart rate Respiratory: Respiratory: Reports as per HPI Musculoskeletal: Musculoskeletal: Reports myalgias and Reports muscle weakness Integumentary/Breasts: Skin/Breast: Reports rash (LUE) Comments: LUE redness Endocrine: Endocrine: Reports fatigue Allergic/Immunologic: Allergic/Immunologic: Reports tongue swelling [facility] Past Medical History Medical History Diabetes mellitus type 2, controlled, without complications Essential hypertension Hypercalcemia Hyperlipidemia, unspecified Hypoglycemia unawareness associated with type 2 diabetes mellitus Obstructive sleep apnea Pancytopenia Streptococcal pneumonia Subclinical hyperthyroidism Family History Family History Father No problems noted. Mother Heart disease Brother Atrial fibrillation Brother Atrial fibrillation Brother Atrial fibrillation Family history: reviewed and not pertinent Surgical History Surgical History History of knee replacement History of left hip replacement Social History Social History Household Members: Family Household Members Other:: 3 Housing: Unknown / Unable to assess Do you presently have visiting nurse or other home services: No Alcohol intake: never Patient Tobacco Use Status: Former Tobacco user Use of substances other than those prescribed or required for medical reasons: No Advance Directives Date on File: 10/09/20 Patient : No service: No Current occupational status: disabled Meds Allergies Allergy/AdvReac Type Severity Reaction Status Date / Time codeine [CODEINE] Allergy Intermediate NAUSEA & Verified 02/22/21 14:30 VOMITING, vomiting lisinopril [LISINOPRIL] Allergy Intermediate COUGH, Verified 02/22/21 14:30 Coughing sulfamethoxazole Allergy Intermediate RASH Verified 02/22/21 14:30 [From BACTRIM] Active Medications: Current Medications Generic Name Dose Route Start Last Admin Trade Name Freq PRN Reason Stop Dose Admin Acetaminophen 650 mg 03/03/21 00:22 03/08/21 21:27 Acetaminophen 325 Mg Tablet PO 650 mg Q6H PRN Administration Pain, Mild (Pain Scale 1-3) Acyclovir 400 mg 03/03/21 09:00 03/11/21 08:51 Acyclovir 200 Mg Capsule PO 400 mg DAILY DONAVAN Administration Aspirin 81 mg 03/03/21 09:00 03/11/21 08:52 Aspirin 81 Mg Tab.Chew PO 81 mg DAILY DONAVAN Administration Atovaquone 1,500 mg 03/03/21 09:00 03/11/21 08:52 Atovaquone 750 Mg/5 Ml Oral.Susp PO 1,500 mg DAILY DONAVAN Administration Calcium Carbonate 500 mg 03/03/21 09:00 03/11/21 21:06 Calcium Carbonate 500 Mg Tablet PO 500 mg BID DONAVAN Administration [place] Butter/Zinc Oxide 1 supp 03/03/21 11:23 [place] Butter/Zinc Oxide Supp.Rect DC BID PRN pain Dextrose 25 gm 03/03/21 00:32 Dextrose 50 % 25 Gm/50 Ml Vial IVPUSH Q15M PRN per Hypoglycemia Standing Ord. Protocol Duloxetine HCl 20 mg 03/03/21 09:00 03/11/21 08:51 Duloxetine Hcl 20 Mg Capsule.Dr PO 20 mg DAILY DONAVAN Administration Glucose 15 gm 03/03/21 00:32 Glucose Gel 15 Gm Gel..Gram. PO Q15M PRN per Hypoglycemia Standing Ord. Protocol Hydrocortisone 1 appl 03/03/21 00:26 Hydrocortisone 1 % Ointment 28.35 Gm Tube TOPICAL DAILY PRN Hemorrhoids Protocol Cefazolin Sodium 1 gm/ Sodium 50 mls @ 100 mls/hr 03/06/21 16:00 03/12/21 00:20 Chloride IV Infused Q8H DONAVAN Infusion Levofloxacin 500 mg in 100 mls @ 100 mls/hr 03/06/21 20:00 03/11/21 20:57 Levaquin IV Infused Q24H DONAVAN Infusion Sodium Bicarbonate 100 meq/ 1,000 mls @ 70 mls/hr 03/08/21 09:45 03/11/21 16:00 Dextrose IV 70 mls/hr .[id number] DONAVAN Administration Insulin Human Lispro 0 unit 03/03/21 07:30 03/11/21 21:06 Insulin Lispro 100 Unit/Ml 3 Ml Vial SUBCUT 2 unit QIDACHS DONAVAN Administration Protocol Lidocaine/Diphenhydr/Alum/Mg/Simeth 10 ml 03/11/21 20:31 Mag&Al/Sim/Diphenhyd/Lidocaine 10 Ml Oral.Susp PO Q4H PRN Mouth Sore Pain Protocol Loperamide HCl 2 mg 03/03/21 08:16 03/03/21 10:07 Loperamide Hcl 2 Mg Capsule PO 2 mg Q4H PRN Administration diarrhea Magnesium Oxide 400 mg 03/03/21 08:30 03/11/21 18:02 Magnesium Oxide 400 Mg Tablet PO 400 mg BIDPC DONAVAN Administration Metoclopramide HCl 5 mg 03/04/21 09:21 03/11/21 09:54 Metoclopramide Hcl 10 Mg/2 Ml Vial IVPUSH 5 mg Q6H PRN Administration Nausea Nystatin 1 appl 03/03/21 15:00 03/11/21 23:25 Nystatin Powder 15 Gm Bottle TOPICAL 1 appl TID DONAVAN Administration Protocol Omeprazole 20 mg 03/03/21 09:00 03/11/21 21:06 Omeprazole 20 Mg Capsule.Dr PO 20 mg BID DONAVAN Administration Ondansetron HCl 4 mg 03/03/21 10:21 03/03/21 10:47 Ondansetron Hcl 4 Mg/2 Ml Vial IVPUSH 4 mg Q8H PRN Administration nausea Oxycodone HCl 5 mg 03/09/21 17:52 03/11/21 23:44 Oxycodone Hcl Immed Release 5 Mg Tablet PO 5 mg Q6H PRN Administration pain Pharmacy Consult 1 each 03/02/21 15:27 Consult Rx Perform Med Rec MISCELLANE ONCE PRN Consult order Potassium Chloride 40 meq 03/03/21 09:00 03/11/21 08:51 Potassium Chloride Er 20 Meq Tab.Er.Prt PO 40 meq DAILY [facility] Administration Sodium Chloride 3 ml 03/03/21 08:00 03/12/21 00:21 0.9 % Sodium Chloride Flush 3 Ml Syringe IVFLUSH Not Given QSHIFT [facility] Home Medications Medication Instructions Recorded Confirmed Last Taken Type aspirin 81 mg chewable tablet 81 mg PO DAILY 04/22/20 03/02/21 02/22/21 History insulin aspart U-100 100 unit/mL 4 - 24 unit SUBCUT TID 04/22/20 03/02/21 Unknown History (3 mL) subcutaneous pen omeprazole 20 mg capsule,delayed 20 mg PO BID 04/22/20 03/02/21 02/22/21 History release calcium carbonate 500 mg (1,250 1 tab PO BID 02/02/21 03/02/21 02/22/21 History mg)-vitamin D3 125 unit tablet duloxetine 20 mg capsule,delayed 1 cap PO DAILY 02/22/21 03/02/21 02/22/21 History release potassium chloride 20 mEq 40 meq PO DAILY 02/22/21 03/02/21 02/22/21 History tablet,extended release nystatin 100,000 unit/gram topical 1 appl TOPICAL TID 03/02/21 03/02/21 Unknown History powder Physical Exam Vital Signs: Vital Signs: Last Vital Signs Temp 98.5 F 03/12/21 03:40 Pulse 111 H 03/12/21 04:46 Resp 21 H 03/12/21 04:46 BP 143/78 H 03/12/21 04:46 Pulse Ox 100 03/12/21 04:46 Body Mass Index 37.5 General: Alert, No acute distress, awake HEENT: Edema of the lips and tongue. Able to swallow on command. Cardiac: Tachycardic to 110, regular rate and rhythm, normal peripheral perfusion. Bilateral lower extremity edema Respiratory: Lungs clear to auscultation bilaterally Gastrointestinal: soft, nontender, nondistended Extremities: Left foot upper extremity cellulitis. Neuro: Alert and oriented to person, place, time, and situation, No focal neurological deficit observed. Psychiatric: Cooperative, appropriate mood & affect, normal judgment.?? ? Results Labs CBC & Chem 7: 03/10/21 06:10 03/11/21 13:56 Labs: BMP 03/11/21 13:56 Sodium 135 Potassium 4.7 Chloride 111 H Carbon Dioxide 20 L BUN 16 Creatinine 1.77 H Calcium 6.6 L Microbiology Microbiology Results: Microbiology 03/02/21 15:58 Blood - Venous Blood Culture - Final No growth after 5 days. 03/02/21 15:48 Blood - Venous Blood Culture - Final No growth after 5 days. 03/03/21 01:12 Stool Stool Culture - Final 03/02/21 18:14 Urine clean catch - Urine alarcon top Urine Culture - Final Klebsiella pneumoniae Assessment and Plan (1) Angioedema: Status: Acute ??75-year-old female with a history of? multiple myeloma,? initially admitted for neutropenic fever and multi drug-resistant UTI,? worsening? LORI? now with signs of angioedema likely from a severe allergic reaction Neuro:? no acute issues Cardiac:?? Tachycardia-? likely from administrations of epinephrine. Pulmonary:? ?Angioedema:? likely from allergy reaction.? Is not clear walker because this allergic reaction.? Patient has been on antibiotics since 03/06/2021 with no previous allergic reactions to cefazolin? and Levaquin. ? She did report eating some tangerines, which she usually does not eat, early in the morning,? but no symptoms during the day.? She already received x2 doses of 0.5 of epinephrine, Benadryl, and Pepcid.? Will add Solu-Medrol.? Continue to closely monitor for signs of worsening angioedema ?Shortness of breath:? patient? is in no respiratory distress, she is satting 100% on 2 L via nasal cannula.? Reports shortness of breath has improved since arrival to the ICU.?? Renal:?? LORI-? being managed by Renal.? Think is likely ATN.? We will continue renal recommendations.? Continue to closely monitor renal indices. Endo:? No acute issues.?? GI:? no acute issues ID:? multi-drug resistant UTI-? blood cultures? sensitive to Levaquin.? Will hold antibiotics on 2 clear allergic source establish.? ?Left upper extremity cellulitis:? on cefazolin and Levaquin. ? Continue plan as above Heme/Onc:?? Multiple myeloma on chemo with pancytopenia. Cont? Empiric atovaquone, acycloivir Psych:? No acute issues. Miscellaneous:? no acute issues CODE:? DNR/DNI.? Code status conversations were held with the hospitalist,? patient continued to wish to be DNR/DNI ?Critical care time:? x60 minutes of critical care time ?Case discussed with attending Dr. Daigle? (2) Allergic reaction: Status: Acute (3) LORI (acute kidney injury): Status: Acute (4) Weakness: Status: Acute (5) Urinary tract infection: Qualifiers: Hematuria presence: without hematuria Urinary tract infection type: site unspecified Qualified Code(s): N39.0 - Urinary tract infection, site not specified Status: Inactive (6) Cellulitis: Status: Acute
[2021-03-12 05:30] LABS: VBG Base Excess -3.7 mmol/L; VBG HCO3 19 mmol/L (22-26); VBG pCO2 29 mmHg; VBG pH 7.43 (7.32-7.43); VBG pO2 51 mmHg
[2021-03-12 05:35] LABS: MANUAL DIFF FLAG NO
[2021-03-12 05:37] LABS: Basophils Percent Auto 0.7 % (0-2); Eosinophils Percent Auto 0.7 % (0-4); Hematocrit 28.3 % (37-47); Hemoglobin 9.5 g/dl (12.0-16.0); Imm Gran Abs Auto 0.03 X10*3/uL (0.00-0.03); Imm Gran Pct Auto 1.1 % (0.0-0.4); Lymphocytes Percent Auto 33.6 % (20-40); Mean Corpuscular HGB Conc 33.6 g/dl (31.0-35.0); Mean Corpuscular Hemoglobin 33.2 pg (27.0-33.0); Monocytes Absolute Auto 0.2 X10*3/uL (0.1-1.2); Neutrophils Absolute Auto 1.6 X10*3/uL (2.0-8.3); Neutrophils Percent Auto 57.9 % (45-73); Red Blood Count 2.86 X10*6/uL (4.20-5.50); Red Cell Distribution Width 19.2 % (11.0-16.0); White Blood Count 2.8 X10*3/uL (4.8-10.8)
--- NOTE | 2021-03-12 05:40 | PC.NURSE ---
Pt to ICU at 0430 for airway monitoring/management due to anaphylaxis to question of what. Lips and throat swelling noted but pt stated on arrival it was getting better. She received bendryl 25 mg IV and then 50 mg IV prior to transfer to ICU along with epinephrine 0.5 mg IM X2 doses. On arrival to ICU, she received solumedrol 125 mg IV stat. She is A&O X3. Speech was difficult to understand on arrival to ICU but has improved significantly since arrival. Pt also states the lip and tongue swelling feel better since arrival. Pt in bed with HOB up. She is able to handle her own secretions. O2 on at 2L via NC. O2 sat is 98-100%. No stridor noted. Monitor shows ST, rate is 100-112, no ectopy. Bp stable 114/62. Provider Noemí RUIZ at bedside on arrival to ICU. Labs drawn as ordered and pending. Pt is very lethargic after receiving benedryl and keeps falling asleep. Pt allowed to rest.
[2021-03-12 05:43] LABS: Venous Blood Gas Refer to POC result
[2021-03-12 05:49] LABS: Platelet Count 77 X10*3/uL (160-400)
[2021-03-12 06:05] LABS: Albumin Level 1.3 g/dL (3.5-5.0); Anion Gap 6 (12-20); Blood Urea Nitrogen 15 mg/dL (9-16); Calcium 6.6 mg/dL (8.4-10.2); Carbon Dioxide 22 mmol/L (22-29); Chloride 110 mmol/L (96-108); Estimated Glomerular Filt Rate 30; Glucose Random 120 mg/dL (60-115); Phosphorus 2.2 mg/dL (2.7-4.5); Potassium 4.3 mmol/L (3.3-5.1); Sodium 134 mmol/L (135-145)
[2021-03-12 06:10] LABS: Magnesium 1.4 mg/dL (1.6-2.6)
[2021-03-12] MEDS: Albumin Human 25 % 100 ML IV ×3 (06:39→20:10)
[2021-03-12] MEDS: Magnesium Sulfate/H2O 2 GM/50 ML PIGGYBACK IV (07:52)
[2021-03-12 08:06] LABS: Glucose, Whole Blood 96 mg/dL (60-115)
--- NOTE | 2021-03-12 08:40 | MHC.CM.PN ---
PT IS CLEARED TO [place] TODAY. PLAN IS FOR PT TO RETURN TO [facility] AND COMPLETE HER STR. [facility] IS CURRENTLY AWAITING AUTH FROM PTS INSURANCE COMPANY. S TRANSPORT IS BOOKED WILL CALL WITH [facility].
[2021-03-12] MEDS: Omeprazole 20 MG CAPSULE.DR PO ×2 (09:07→21:31)
[2021-03-12] MEDS: DULoxetine HCl 20 MG CAPSULE.DR PO (09:07)
[2021-03-12] MEDS: Acyclovir 200 MG CAPSULE 400 MG PO (09:07)
[2021-03-12] MEDS: Atovaquone 750 MG/5 ML ORAL.SUSP 1500 MG PO (09:07)
[2021-03-12] MEDS: Aspirin 81 MG TAB.CHEW PO (09:07)
[2021-03-12] MEDS: 0.9 % Sodium Chloride Flush 3 ML SYRINGE IVFLUSH ×3 (09:08→21:32)
[2021-03-12] MEDS: Nystatin Powder 15 GM BOTTLE 1 APPL TOPICAL ×3 (09:10→22:17)
--- NOTE | 2021-03-12 10:08 | MHC.CLN ---
Addendum entered by Cecily Macedo, LIZETH 03/12/21 10:17: ADDED [place] ALLERGY TO EMR. Original Note: F/U TRANSFERRED TO ICU DUE TO EPISODE OF LIP SWELLING. QUESTION ANGIOEDEMA AND POSSIBLE CAUSAL EATING TANGERINES. CONFIRMED WITH KITCHEN THAT PATIENT RECEIVED CANNED MANDARIN ORANGES AT DINNER ON 03/11. KITCHEN ADDED ALLERGY TO [place]. DIET=DIABETIC 2000 KCAL, NEUTROPENIC PRECAUTIONS, SUPPLEMENT 240 ML ENSURE BID.
[2021-03-12] MEDS: predniSONE 20 MG TABLET 40 MG PO (11:06)
[2021-03-12 11:51] LABS: Glucose, Whole Blood 169 mg/dL (60-115)
[2021-03-12] MEDS: Insulin Lispro 100 UNIT/ML 3 ML VIAL SUBCUT ×2 (11:51→21:31)
--- NOTE | 2021-03-12 14:23 | PC.NURSE ---
pt from ICU via bed. She is alert, oriented, denies pain but states he left arm can be very painful at times. She has call light at bedside and states understanding for use. Inspected skin, she has open area to buttocks with smnall bruise to coccyx, also has reness to abdominal fold with wicking fabric in place. She states she had a large BM when in [facility].
--- NOTE | 2021-03-12 16:08 | P.PNNP_ITS ---
Subjective Subjective Date of Service: 03/12/21 Interval history: Events noted Feels about the same Non oliguric Transferred to ICU last night due to tongue swelling Physical Exam Vital Signs: Vital Signs: Last Vital Signs Temp 98.0 F 03/12/21 15:00 Pulse 100 03/12/21 15:00 Resp 20 03/12/21 15:00 BP 135/62 03/12/21 15:00 Pulse Ox 97 03/12/21 15:00 Body Mass Index 37.5 Const: General: no acute distress Orientation/consciousness: oriented to person Neck: Neck: Yes supple Resp: Auscultation: clear to auscultation bilaterally Cardio: Heart sounds: no murmurs and no rubs GI: Palpation (GI): Soft to palpation Auscultation: normal bowel sounds Neuro: General: oriented to person Motor exam (neuro): no asterixis Objective Data Labs CBC & Chem 7: 03/12/21 05:25 03/12/21 05:25 Labs: Laboratory Results - last 24 hr 03/11/21 03/11/21 03/12/21 16:26 20:25 05:22 WBC RBC Hgb Hct MCV MCH MCHC RDW Plt Count MPV Immature Gran % (Auto) Neut % (Auto) Lymph % (Auto) [place] % (Auto) Eos % (Auto) Baso % (Auto) Lymph # (Auto) [place] # (Auto) Eos # (Auto) Baso # (Auto) Abs Immat Gran (auto) Absolute Neuts (auto) Absolute Nucleated RBC Nucleated RBC % (auto) VBG pH 7.43 VBG pCO2 29 VBG pO2 51 VBG HCO3 19 L VBG O2 Saturation 81.0 VBG Base Excess -3.7 Sodium Potassium Chloride Carbon Dioxide Anion Gap BUN Creatinine Estim Creat Clear Calc Estimated GFR POC Glucose 137 H 161 H Random Glucose Calcium Phosphorus Magnesium Albumin 03/12/21 03/12/21 03/12/21 05:25 05:25 08:02 WBC 2.8 L RBC 2.86 L Hgb 9.5 L Hct 28.3 L MCV 99.0 H MCH 33.2 H MCHC 33.6 RDW 19.2 H Plt Count 77 L D MPV 12.0 Immature Gran % (Auto) 1.1 H Neut % (Auto) 57.9 Lymph % (Auto) 33.6 [place] % (Auto) 6.0 Eos % (Auto) 0.7 Baso % (Auto) 0.7 Lymph # (Auto) 1.0 L [place] # (Auto) 0.2 Eos # (Auto) 0.0 Baso # (Auto) 0.0 Abs Immat Gran (auto) 0.03 Absolute Neuts (auto) 1.6 L Absolute Nucleated RBC 0.000 Nucleated RBC % (auto) 0.0 VBG pH VBG pCO2 VBG pO2 VBG HCO3 VBG O2 Saturation VBG Base Excess Sodium 134 L Potassium 4.3 Chloride 110 H Carbon Dioxide 22 Anion Gap 6 L BUN 15 Creatinine 1.66 H Estim Creat Clear Calc 39.0 Estimated GFR 30 POC Glucose 96 Random Glucose 120 H Calcium 6.6 L Phosphorus 2.2 L Magnesium 1.4 L* Albumin 1.3 L D 03/12/21 11:48 WBC RBC Hgb Hct MCV MCH MCHC RDW Plt Count MPV Immature Gran % (Auto) Neut % (Auto) Lymph % (Auto) [place] % (Auto) Eos % (Auto) Baso % (Auto) Lymph # (Auto) [place] # (Auto) Eos # (Auto) Baso # (Auto) Abs Immat Gran (auto) Absolute Neuts (auto) Absolute Nucleated RBC Nucleated RBC % (auto) VBG pH VBG pCO2 VBG pO2 VBG HCO3 VBG O2 Saturation VBG Base Excess Sodium Potassium Chloride Carbon Dioxide Anion Gap BUN Creatinine Estim Creat Clear Calc Estimated GFR POC Glucose 169 H Random Glucose Calcium Phosphorus Magnesium Albumin Microbiology Microbiology Results: Microbiology 03/02/21 15:58 Blood - Venous Blood Culture - Final No growth after 5 days. 03/02/21 15:48 Blood - Venous Blood Culture - Final No growth after 5 days. 03/03/21 01:12 Stool Stool Culture - Final 03/02/21 18:14 Urine clean catch - Urine alarcon top Urine Culture - Final Klebsiella pneumoniae Procedures Date of Service Date of Service: 03/12/21 Assessment & Plan Assessment and plan (1) LORI (acute kidney injury): Status: Acute Assessment and Plan: LORI in a setting of MM Non oliguric UPEP pending Urine has > 2gm protein DDX: ATN/Myeloma kidney/AIN No hydronephrosis on USG Plan: Keep IV F I > O No indication for dialysis (2) Multiple myeloma: Status: Chronic Assessment and Plan: Management per Oncology Transfuse PRBC as needed Time Spent With Patient Time: Total time spent is greater than 50% in coordination of care (as documented) at patient's floor/unit and/or counseling patient: Progress Note: Quality Stroke Does the patient have a stroke diagnosis?: No
[2021-03-12 16:19] LABS: Glucose, Whole Blood 164 mg/dL (60-115)
[2021-03-12 19:59] LABS: Glucose, Whole Blood 227 mg/dL (60-115)
[2021-03-12] MEDS: oxyCODONE HCl Immed Release 5 MG TABLET PO (21:31)
[2021-03-12] MEDS: levoFLOXacin/D5W 500 MG/100 ML PIGGYBACK 100 MG IV (21:32)
[2021-03-13] VITALS (11 sets, daily range): BP systolic 106–145; BP diastolic 55–74; PULSE 87–102; RESP 15–20; TEMP 36.2–37.2; O2SAT 96–99
[2021-03-13] MEDS: Albumin Human 25 % 100 ML IV (02:01)
[2021-03-13 07:21] LABS: Glucose, Whole Blood 93 mg/dL (60-115)
[2021-03-13] MEDS: 0.9 % Sodium Chloride Flush 3 ML SYRINGE IVFLUSH ×3 (08:12→21:33)
[2021-03-13] MEDS: Atovaquone 750 MG/5 ML ORAL.SUSP 1500 MG PO (08:24)
[2021-03-13] MEDS: predniSONE 20 MG TABLET 40 MG PO (08:25)
[2021-03-13] MEDS: DULoxetine HCl 20 MG CAPSULE.DR PO (08:25)
[2021-03-13] MEDS: Acyclovir 200 MG CAPSULE 400 MG PO (08:25)
[2021-03-13] MEDS: Omeprazole 20 MG CAPSULE.DR PO ×2 (08:25→21:20)
[2021-03-13] MEDS: Aspirin 81 MG TAB.CHEW PO (08:25)
[2021-03-13] MEDS: Nystatin Powder 15 GM BOTTLE 1 APPL TOPICAL ×2 (08:26→16:06)
[2021-03-13 09:11] LABS: Mean Corpuscular HGB Conc 32.4 g/dl (31.0-35.0); Mean Corpuscular Hemoglobin 32.1 pg (27.0-33.0); Mean Platelet Volume 12.1 fL (9.4-12.3); Red Blood Count 2.09 X10*6/uL (4.20-5.50); Red Cell Distribution Width 19.1 % (11.0-16.0)
[2021-03-13 09:42] LABS: Alanine Aminotransferase < 6 U/L (0-31); Albumin Level 2.2 g/dL (3.5-5.0); Alkaline Phosphatase 50 U/L (39-117); Anion Gap 9 (12-20); Aspartate Amino Transferase 17 U/L (5-31); Bilirubin Direct 0.4 mg/dL (0.0-0.5); Bilirubin Total 0.6 mg/dL (0.0-1.0); Blood Urea Nitrogen 17 mg/dL (9-16); Calcium 7.1 mg/dL (8.4-10.2); Carbon Dioxide 22 mmol/L (22-29); Chloride 110 mmol/L (96-108); Creatinine Clr Calc Pharmacy 40.7; Estimated Glomerular Filt Rate 32; Glucose Random 105 mg/dL (60-115); Magnesium 1.7 mg/dL (1.6-2.6); Potassium 3.8 mmol/L (3.3-5.1); Sodium 137 mmol/L (135-145); Total Protein 5.3 g/dL (6.5-8.0)
--- NOTE | 2021-03-13 09:46 | HO.PM.IMPN ---
Subjective Subjective Date of Service: 03/13/21 Interval History: f/u on renal failure, cellulitis, multiple myoloma and angioedema that required ICU care. She feels pretty good today, has some residual swelling of upper lip, no sob Review of Systems Gen:?no fever Resp:?no sob, no cough CV:?no chest, no ROBIN, no leg edema GI:?No n/v, no abd pain Neuro:?No confusion Physical Exam Vital Signs: Vital Signs: Last Vital Signs Temp 97.8 F 03/13/21 07:25 Pulse 99 03/13/21 07:25 Resp 20 03/13/21 07:25 BP 124/58 L 03/13/21 07:25 Pulse Ox 99 03/13/21 07:25 Body Mass Index 37.5 Gen: alert, no acute distress HEENT: NCAT, EOMI, PERRL?upper lip swelling Neck: supple, no LAD Chest: CTAB no w/r/r Heart: RRR, no m/r/g Abd: soft, nt, NABS, no HM/SM or mass. Ext: NT,? 2+ edema, Skin: mild swelling of left ar m with mild erythema Neuro: A&O. No focal findings. Psych: Affect full and appropriate. Objective Data Current Medications Generic Name Dose Route Start Last Admin Trade Name Giancarloq PRN Reason Stop Dose Admin Acetaminophen 650 mg 03/03/21 00:22 03/08/21 21:27 Acetaminophen 325 Mg Tablet PO 650 mg Q6H PRN Administration Pain, Mild (Pain Scale 1-3) Acyclovir 400 mg 03/03/21 09:00 03/13/21 08:25 Acyclovir 200 Mg Capsule PO 400 mg DAILY DONAVAN Administration Aspirin 81 mg 03/03/21 09:00 03/13/21 08:25 Aspirin 81 Mg Tab.Chew PO 81 mg DAILY DONAVAN Administration Atovaquone 1,500 mg 03/03/21 09:00 03/13/21 08:24 Atovaquone 750 Mg/5 Ml Oral.Susp PO 1,500 mg DAILY DONAVAN Administration Calcium Carbonate 500 mg 03/03/21 09:00 03/13/21 08:25 Calcium Carbonate 500 Mg Tablet PO 500 mg BID DONAVAN Administration Dextrose 25 gm 03/03/21 00:32 Dextrose 50 % 25 Gm/50 Ml Vial IVPUSH Q15M PRN per Hypoglycemia Standing Ord. Protocol Duloxetine HCl 20 mg 03/03/21 09:00 03/13/21 08:25 Duloxetine Hcl 20 Mg Capsule. PO 20 mg DAILY DONAVAN Administration Glucose 15 gm 03/03/21 00:32 Glucose Gel 15 Gm Gel..Gram. PO Q15M PRN per Hypoglycemia Standing Ord. Protocol Hydrocortisone 1 appl 03/03/21 00:26 Hydrocortisone 1 % Ointment 28.35 Gm Tube TOPICAL DAILY PRN Hemorrhoids Protocol Levofloxacin 500 mg in 100 mls @ 100 mls/hr 03/06/21 20:00 03/12/21 22:45 Levaquin IV Infused Q24H DONAVAN Infusion Insulin Human Lispro 0 unit 03/03/21 07:30 03/13/21 07:22 Insulin Lispro 100 Unit/Ml 3 Ml Vial SUBCUT Not Given QIDACHS [facility] Protocol Lidocaine/Diphenhydr/Alum/Mg/Simeth 10 ml 03/11/21 20:31 Mag&Al/Sim/Diphenhyd/Lidocaine 10 Ml Oral.Susp PO Q4H PRN Mouth Sore Pain Protocol Loperamide HCl 2 mg 03/03/21 08:16 03/03/21 10:07 Loperamide Hcl 2 Mg Capsule PO 2 mg Q4H PRN Administration diarrhea Metoclopramide HCl 5 mg 03/04/21 09:21 03/11/21 09:54 Metoclopramide Hcl 10 Mg/2 Ml Vial IVPUSH 5 mg Q6H PRN Administration Nausea Nystatin 1 appl 03/03/21 15:00 03/13/21 08:26 Nystatin Powder 15 Gm Bottle TOPICAL 1 appl TID DONAVAN Administration Protocol Omeprazole 20 mg 03/03/21 09:00 03/13/21 08:25 Omeprazole 20 Mg Capsule. PO 20 mg BID DONAVAN Administration Ondansetron HCl 4 mg 03/03/21 10:21 03/03/21 10:47 Ondansetron Hcl 4 Mg/2 Ml Vial IVPUSH 4 mg Q8H PRN Administration nausea Oxycodone HCl 5 mg 03/09/21 17:52 03/12/21 21:31 Oxycodone Hcl Immed Release 5 Mg Tablet PO 5 mg Q6H PRN Administration pain Pharmacy Consult 1 each 03/02/21 15:27 Consult Rx Perform Med Rec MISCELLANE ONCE PRN Consult order Prednisone 40 mg 03/12/21 11:00 03/13/21 08:25 Prednisone 20 Mg Tablet PO 03/14/21 09:01 40 mg DAILY DONAVAN Administration Sodium Chloride 3 ml 03/03/21 08:00 03/13/21 08:12 0.9 % Sodium Chloride Flush 3 Ml Syringe IVFLUSH 3 ml QSHIFT DONAVAN Administration Labs CBC & Chem 7: 03/12/21 05:25 03/13/21 08:12 Labs: Laboratory Results - last 24 hr 03/12/21 03/12/21 03/12/21 11:48 16:07 19:44 Anion Gap Estim Creat Clear Calc Estimated GFR POC Glucose 169 H 164 H 227 H Random Glucose Calcium Magnesium Total Bilirubin Direct Bilirubin AST ALT Alkaline Phosphatase Total Protein Albumin 03/13/21 03/13/21 07:17 08:12 Anion Gap 9 L Estim Creat Clear Calc 40.7 Estimated GFR 32 POC Glucose 93 Random Glucose 105 Calcium 7.1 L D Magnesium 1.7 Total Bilirubin 0.6 Direct Bilirubin 0.4 AST 17 D ALT < 6 Alkaline Phosphatase 50 Total Protein 5.3 L Albumin 2.2 L D Assessment and Plan (1) Neutropenic fever: Status: Resolved (2) Multiple myeloma: Status: Chronic Assessment and Plan: 75 with DM, MM, pancytopenia, who presented w/ weakness and , N/V/Diarrhea and now with progressively worsening renal failure with concern for ATN, she als has has left Upper ext cellulitis that is rather extensive and painful. Angiodema of lip throat on 03/12 pssibly related to citrus or keflex LORI--possibly d/t ATN or d/t MM--will need further investigation and posibly biopsy, Nephrlogy fllowing. Creatinine is slightly down today weakness, diarrhea, vomitting--likely from MM, it is getting better, continue sumptomatic treatment with Zofran, Reglan and imodium. C dif is negative LUE cellulits related to diabetes and immune compromised state from Chemo--covering > 50% of the limb, improving, continue Levaquin. Ancef stopped for possibility it may have caused allergic angioedema UTI d/t -- multi drug resistant, klebsiella, sensitive to Levaquin, continue Levaquin MM on chemo with pancytopenia Empiric atovaquone, acycloivir hematology eval appreciated - 03/08: gravix 480mg times 1, 1 unit rbc. 03/13 hgb 6.6,hct 20. Transfuse 1 units Next chemo 03/15, but probably will be postpone, will leave it to oncology DM--continue insulin, follow sugar levels Quality Stroke Does the patient have a stroke diagnosis?: No VTE Prior VTE?: No VTE Risk Level:: Medical - moderate - high VTE Device Contraindication: N/A - Device Ordered VTE Drug Contraindication: Treatment Not Tolerated
[2021-03-13 09:57] LABS: White Blood Count 1.4 X10*3/uL (4.8-10.8)
[2021-03-13 09:59] LABS: Hematocrit 20.7 % (37-47); Hemoglobin 6.7 g/dl (12.0-16.0); Platelet Count 62 X10*3/uL (160-400)
[2021-03-13 11:56] LABS: Glucose, Whole Blood 164 mg/dL (60-115)
[2021-03-13] MEDS: Insulin Lispro 100 UNIT/ML 3 ML VIAL SUBCUT ×3 (12:15→21:21)
[2021-03-13 13:55] LABS: Hematocrit 21.9 % (37-47); Hemoglobin 7.1 g/dl (12.0-16.0)
[2021-03-13 16:32] LABS: Glucose, Whole Blood 189 mg/dL (60-115)
--- NOTE | 2021-03-13 18:08 | PC.NURSE ---
2 UNITS OF RBCS GIVEN, TOLERATED WELL. SWELLING TO LIPS HAS IMPROVED PER PT. NO ISSUES WITH SWALLOWING. REDNESS TO LEFT ARM HAS ALSO IMPROVED PER PT. ABLE TO TOUCH ARM WITH NO DISCOMFORT. LESS RED, MORE PINK IN COLOR.
[2021-03-13] MEDS: oxyCODONE HCl Immed Release 5 MG TABLET PO (18:19)
[2021-03-13] MEDS: levoFLOXacin/D5W 500 MG/100 ML PIGGYBACK 100 MG IV (20:00)
[2021-03-13 20:51] LABS: Glucose, Whole Blood 252 mg/dL (60-115)
--- NOTE | 2021-03-13 20:51 | PM.PNNEP ---
Subjective Subjective Date of Service: 03/13/21 Interval history: no acute events Cr stable overall discussed the patients myeloma is stable infact [place] levels 6grams to 2grams LORI in the setting of sepsis. Physical Exam Vital Signs: Vital Signs: Last Vital Signs Temp 99 F 03/13/21 19:30 Pulse 96 03/13/21 19:30 Resp 15 03/13/21 19:30 BP 130/70 03/13/21 19:30 Pulse Ox 96 03/13/21 19:30 Body Mass Index 37.5 Const: General: no acute distress Orientation/consciousness: oriented to person Neck: Neck: Yes supple Resp: Auscultation: clear to auscultation bilaterally Cardio: Heart sounds: no murmurs and no rubs GI: Palpation (GI): Soft to palpation Auscultation: normal bowel sounds Neuro: General: oriented to person Motor exam (neuro): no asterixis Objective Data Labs CBC & Chem 7: 03/13/21 13:47 03/13/21 08:12 Labs: Laboratory Results - last 24 hr 03/08/21 03/13/21 03/13/21 11:12 07:17 08:12 WBC 1.4 L RBC 2.09 L D Hgb 6.7 L* D Hct 20.7 L* D MCV 99.0 H MCH 32.1 MCHC 32.4 RDW 19.1 H Plt Count 62 L MPV 12.1 Absolute Nucleated RBC 0.000 Nucleated RBC % (auto) 0.0 Sodium Potassium Chloride Carbon Dioxide Anion Gap BUN Creatinine Estim Creat Clear Calc Estimated GFR POC Glucose 93 Random Glucose Calcium Magnesium Total Bilirubin Direct Bilirubin AST ALT Alkaline Phosphatase Total Protein Albumin Blood Type Antibody Screen Crossmatch See Detail 03/13/21 03/13/21 03/13/21 08:12 10:13 11:53 WBC RBC Hgb Hct MCV MCH MCHC RDW Plt Count MPV Absolute Nucleated RBC Nucleated RBC % (auto) Sodium 137 Potassium 3.8 Chloride 110 H Carbon Dioxide 22 Anion Gap 9 L BUN 17 H Creatinine 1.59 H Estim Creat Clear Calc 40.7 Estimated GFR 32 POC Glucose 164 H Random Glucose 105 Calcium 7.1 L D Magnesium 1.7 Total Bilirubin 0.6 Direct Bilirubin 0.4 AST 17 D ALT < 6 Alkaline Phosphatase 50 Total Protein 5.3 L Albumin 2.2 L D Blood Type O Positive Antibody Screen NEGATIVE Crossmatch See Detail 03/13/21 03/13/21 13:47 16:22 WBC RBC Hgb 7.1 L Hct 21.9 L MCV MCH MCHC RDW Plt Count MPV Absolute Nucleated RBC Nucleated RBC % (auto) Sodium Potassium Chloride Carbon Dioxide Anion Gap BUN Creatinine Estim Creat Clear Calc Estimated GFR POC Glucose 189 H Random Glucose Calcium Magnesium Total Bilirubin Direct Bilirubin AST ALT Alkaline Phosphatase Total Protein Albumin Blood Type Antibody Screen Crossmatch Microbiology Microbiology Results: Microbiology 03/02/21 15:58 Blood - Venous Blood Culture - Final No growth after 5 days. 03/02/21 15:48 Blood - Venous Blood Culture - Final No growth after 5 days. 03/03/21 01:12 Stool Stool Culture - Final 03/02/21 18:14 Urine clean catch - Urine alarcon top Urine Culture - Final Klebsiella pneumoniae Procedures Date of Service Date of Service: 03/13/21 Assessment & Plan Assessment and plan (1) LORI (acute kidney injury): Status: Acute Assessment and Plan: LORI in a setting of sepsis. She does not have a GN secondary to paraprotein disease. Her [place] light chains are stable if not better over time from 6g to 2g. Non oliguric OVerall ATN from sepsis. Cr peak 1.77mg/dL Cr today 1.59mg/dL. No hydronephrosis on USG Plan: - conservative care - monitor renal function daily - Will benefit from ACEi when renal function stable. (2) Multiple myeloma: Status: Chronic Time Spent With Patient Time: Total time spent is greater than 50% in coordination of care (as documented) at patient's floor/unit and/or counseling patient: Progress Note: Quality Stroke Does the patient have a stroke diagnosis?: No
[2021-03-14] VITALS (7 sets, daily range): BP systolic 108–180; BP diastolic 57–89; PULSE 53–100; RESP 16–18; TEMP 35.9–37; O2SAT 96–100
--- NOTE | 2021-03-14 07:29 | P.PNIM_ITS ---
Subjective Subjective Date of Service: 03/14/21 Interval History: f/u on renal failure, cellulitis, multiple myoloma and angioedema that? required ICU care. continues to feel better,, has some residual swelling of upper lip, no sob Review of Systems Gen:?no fever Resp:?no sob, no cough CV:?no chest, no ROBIN, no leg edema GI:?No n/v, no abd pain Neuro:?No confusion Physical Exam Vital Signs: Vital Signs: Last Vital Signs Temp 98.3 F 03/14/21 04:00 Pulse 89 03/14/21 04:00 Resp 16 03/14/21 04:00 BP 143/57 H 03/14/21 04:00 Pulse Ox 99 03/14/21 04:00 Body Mass Index 37.5 Gen: alert, no acute distress HEENT: NCAT, EOMI, PERRL?upper lip swelling mild Neck: supple, no LAD Chest: CTAB no w/r/r Heart: RRR, no m/r/g Abd: soft, nt, NABS, no HM/SM or mass. Ext: NT,? 2+ edema, Skin: mild swelling of left arm with mild erythema Neuro: A&O. No focal findings. Psych: Affect full and appropriate. Objective Data Current Medications Generic Name Dose Route Start Last Admin Trade Name Giancarloq PRN Reason Stop Dose Admin Acetaminophen 650 mg 03/03/21 00:22 03/08/21 21:27 Acetaminophen 325 Mg Tablet PO 650 mg Q6H PRN Administration Pain, Mild (Pain Scale 1-3) Acyclovir 400 mg 03/03/21 09:00 03/13/21 08:25 Acyclovir 200 Mg Capsule PO 400 mg DAILY DONAVAN Administration Aspirin 81 mg 03/03/21 09:00 03/13/21 08:25 Aspirin 81 Mg Tab.Chew PO 81 mg DAILY DONAVAN Administration Atovaquone 1,500 mg 03/03/21 09:00 03/13/21 08:24 Atovaquone 750 Mg/5 Ml Oral.Susp PO 1,500 mg DAILY DONAVAN Administration Calcium Carbonate 500 mg 03/03/21 09:00 03/13/21 21:21 Calcium Carbonate 500 Mg Tablet PO 500 mg BID DONAVAN Administration Dextrose 25 gm 03/03/21 00:32 Dextrose 50 % 25 Gm/50 Ml Vial IVPUSH Q15M PRN per Hypoglycemia Standing Ord. Protocol Duloxetine HCl 20 mg 03/03/21 09:00 03/13/21 08:25 Duloxetine Hcl 20 Mg Capsule. PO 20 mg DAILY DONAVAN Administration Glucose 15 gm 03/03/21 00:32 Glucose Gel 15 Gm Gel..Gram. PO Q15M PRN per Hypoglycemia Standing Ord. Protocol Hydrocortisone 1 appl 03/03/21 00:26 Hydrocortisone 1 % Ointment 28.35 Gm Tube TOPICAL DAILY PRN Hemorrhoids Protocol Levofloxacin 500 mg in 100 mls @ 100 mls/hr 03/06/21 20:00 03/13/21 21:05 Levaquin IV Infused Q24H DONAVAN Infusion Insulin Human Lispro 0 unit 03/03/21 07:30 03/13/21 21:21 Insulin Lispro 100 Unit/Ml 3 Ml Vial SUBCUT 6 unit QIDACHS [facility] Administration Protocol Lidocaine/Diphenhydr/Alum/Mg/Simeth 10 ml 03/11/21 20:31 Mag&Al/Sim/Diphenhyd/Lidocaine 10 Ml Oral.Susp PO Q4H PRN Mouth Sore Pain Protocol Loperamide HCl 2 mg 03/03/21 08:16 03/03/21 10:07 Loperamide Hcl 2 Mg Capsule PO 2 mg Q4H PRN Administration diarrhea Metoclopramide HCl 5 mg 03/04/21 09:21 03/11/21 09:54 Metoclopramide Hcl 10 Mg/2 Ml Vial IVPUSH 5 mg Q6H PRN Administration Nausea Nystatin 1 appl 03/03/21 15:00 03/13/21 21:32 Nystatin Powder 15 Gm Bottle TOPICAL Not Given TID [facility] Protocol Omeprazole 20 mg 03/03/21 09:00 03/13/21 21:20 Omeprazole 20 Mg Capsule. PO 20 mg BID DONAVAN Administration Ondansetron HCl 4 mg 03/03/21 10:21 03/03/21 10:47 Ondansetron Hcl 4 Mg/2 Ml Vial IVPUSH 4 mg Q8H PRN Administration nausea Oxycodone HCl 5 mg 03/09/21 17:52 03/13/21 18:19 Oxycodone Hcl Immed Release 5 Mg Tablet PO 5 mg Q6H PRN Administration pain Pharmacy Consult 1 each 03/02/21 15:27 Consult Rx Perform Med Rec MISCELLANE ONCE PRN Consult order Prednisone 40 mg 03/12/21 11:00 03/13/21 08:25 Prednisone 20 Mg Tablet PO 03/14/21 09:01 40 mg DAILY DONAVAN Administration Sodium Chloride 3 ml 03/03/21 08:00 03/13/21 21:33 0.9 % Sodium Chloride Flush 3 Ml Syringe IVFLUSH 3 ml QSHIFT DONAVAN Administration Labs CBC & Chem 7: 03/13/21 13:47 03/13/21 08:12 Labs: Laboratory Results - last 24 hr 03/08/21 03/13/21 03/13/21 11:12 08:12 08:12 MCV 99.0 H MCH 32.1 MCHC 32.4 RDW 19.1 H Plt Count 62 L MPV 12.1 Absolute Nucleated RBC 0.000 Nucleated RBC % (auto) 0.0 Anion Gap 9 L Estim Creat Clear Calc 40.7 Estimated GFR 32 POC Glucose Random Glucose 105 Calcium 7.1 L D Magnesium 1.7 Total Bilirubin 0.6 Direct Bilirubin 0.4 AST 17 D ALT < 6 Alkaline Phosphatase 50 Total Protein 5.3 L Albumin 2.2 L D Blood Type Antibody Screen Crossmatch See Detail 03/13/21 03/13/21 03/13/21 10:13 11:53 16:22 MCV MCH MCHC RDW Plt Count MPV Absolute Nucleated RBC Nucleated RBC % (auto) Anion Gap Estim Creat Clear Calc Estimated GFR POC Glucose 164 H 189 H Random Glucose Calcium Magnesium Total Bilirubin Direct Bilirubin AST ALT Alkaline Phosphatase Total Protein Albumin Blood Type O Positive Antibody Screen NEGATIVE Crossmatch See Detail 03/13/21 20:42 MCV MCH MCHC RDW Plt Count MPV Absolute Nucleated RBC Nucleated RBC % (auto) Anion Gap Estim Creat Clear Calc Estimated GFR POC Glucose 252 H Random Glucose Calcium Magnesium Total Bilirubin Direct Bilirubin AST ALT Alkaline Phosphatase Total Protein Albumin Blood Type Antibody Screen Crossmatch Assessment and Plan (1) Neutropenic fever: Status: Resolved (2) Multiple myeloma: Status: Chronic Assessment and Plan: 75 with DM, MM, pancytopenia, who presented w/ weakness and , N/V/Diarrhea and now with progressively worsening renal failure with concern for ATN, she als has has left Upper ext cellulitis that is rather extensive and painful. Angiodema of lip throat on 03/12 pssibly related to citrus or keflex LORI--possibly d/t ATN or d/t MM--will need further investigation and posibly biopsy, Nephrlogy fllowing, Creatinine is trending down, monitor weakness, diarrhea, vomitting--likely from MM, resolved, continue sumptomatic treatment with Zofran, Reglan and imodium. C dif is negative LUE cellulits related to diabetes and immune compromised state from Chemo--covering > 50% of the limb, improving, continue Levaquin. Ancef stopped for possibility it may have caused allergic angioedema, continue Levaquin UTI d/t -- multi drug resistant, klebsiella, sensitive to Levaquin, continue [place] vaquin MM on chemo with pancytopenia Empiric atovaquone, acycloivir hematology eval appreciated - 03/08: gravix 480mg times 1, 1 unit rbc. 03/13 hgb 6.6,hct 20. Transfuse 2 units on 03/13 Next chemo 03/16, but probably will be postpone, will leave it to oncology DM--continue insulin, follow sugar levels Quality Stroke Does the patient have a stroke diagnosis?: No VTE Prior VTE?: No VTE Risk Level:: Medical - moderate - high VTE Device Contraindication: N/A - Device Ordered VTE Drug Contraindication: Treatment Not Tolerated
[2021-03-14 07:41] LABS: Glucose, Whole Blood 115 mg/dL (60-115)
[2021-03-14] MEDS: Aspirin 81 MG TAB.CHEW PO (07:58)
[2021-03-14] MEDS: Acyclovir 200 MG CAPSULE 400 MG PO (07:58)
[2021-03-14] MEDS: Atovaquone 750 MG/5 ML ORAL.SUSP 1500 MG PO (07:58)
[2021-03-14] MEDS: Omeprazole 20 MG CAPSULE.DR PO ×2 (07:58→21:48)
[2021-03-14] MEDS: Metoclopramide HCl 10 MG/2 ML VIAL 5 MG IVPUSH (07:59)
[2021-03-14] MEDS: predniSONE 20 MG TABLET 40 MG PO (07:59)
[2021-03-14] MEDS: DULoxetine HCl 20 MG CAPSULE.DR PO (07:59)
[2021-03-14] MEDS: 0.9 % Sodium Chloride Flush 3 ML SYRINGE IVFLUSH ×3 (07:59→21:49)
[2021-03-14] MEDS: Nystatin Powder 15 GM BOTTLE 1 APPL TOPICAL ×3 (08:00→22:01)
[2021-03-14 08:31] LABS: Hemoglobin 10.2 g/dl (12.0-16.0); Mean Corpuscular HGB Conc 32.9 g/dl (31.0-35.0); Mean Corpuscular Hemoglobin 31.9 pg (27.0-33.0); Mean Corpuscular Volume 96.9 fL (80-98); Mean Platelet Volume 11.2 fL (9.4-12.3); Red Cell Distribution Width 17.9 % (11.0-16.0)
[2021-03-14 08:32] LABS: Platelet Count 65 X10*3/uL (160-400); White Blood Count 2.1 X10*3/uL (4.8-10.8)
[2021-03-14 08:56] LABS: Anion Gap 7 (12-20); Blood Urea Nitrogen 18 mg/dL (9-16); Calcium 7.3 mg/dL (8.4-10.2); Carbon Dioxide 22 mmol/L (22-29); Chloride 112 mmol/L (96-108); Estimated Glomerular Filt Rate 33; Glucose Random 112 mg/dL (60-115); Potassium 3.1 mmol/L (3.3-5.1); Sodium 138 mmol/L (135-145)
[2021-03-14 11:26] LABS: Glucose, Whole Blood 155 mg/dL (60-115)
[2021-03-14] MEDS: Insulin Lispro 100 UNIT/ML 3 ML VIAL SUBCUT ×3 (11:40→21:48)
[2021-03-14 16:24] LABS: Glucose, Whole Blood 232 mg/dL (60-115)
--- NOTE | 2021-03-14 17:00 | PM.PNNEP ---
Subjective Subjective Date of Service: 03/14/21 Interval history: no acute events denies dyspnea good UOP Physical Exam Vital Signs: Vital Signs: Last Vital Signs Temp 98.5 F 03/14/21 15:50 Pulse 98 03/14/21 15:50 Resp 17 03/14/21 15:50 BP 122/70 03/14/21 15:50 Pulse Ox 97 03/14/21 15:50 Body Mass Index 37.5 Const: General: no acute distress Orientation/consciousness: oriented to person Resp: Auscultation: clear to auscultation bilaterally Cardio: Heart sounds: no murmurs and no rubs GI: Palpation (GI): Soft to palpation Auscultation: normal bowel sounds Neuro: General: oriented to person Motor exam (neuro): no asterixis Objective Data Labs CBC & Chem 7: 03/14/21 08:14 03/14/21 08:14 Labs: Laboratory Results - last 24 hr 03/13/21 03/13/21 03/14/21 10:13 20:42 07:24 WBC RBC Hgb Hct MCV MCH MCHC RDW Plt Count MPV Absolute Nucleated RBC Nucleated RBC % (auto) Sodium Potassium Chloride Carbon Dioxide Anion Gap BUN Creatinine Estim Creat Clear Calc Estimated GFR POC Glucose 252 H 115 Random Glucose Calcium Crossmatch See Detail 03/14/21 03/14/21 03/14/21 08:14 08:14 11:20 WBC 2.1 L RBC 3.20 L D Hgb 10.2 L D Hct 31.0 L D MCV 96.9 MCH 31.9 MCHC 32.9 RDW 17.9 H Plt Count 65 L MPV 11.2 Absolute Nucleated RBC 0.000 Nucleated RBC % (auto) 0.0 Sodium 138 Potassium 3.1 L Chloride 112 H Carbon Dioxide 22 Anion Gap 7 L BUN 18 H Creatinine 1.54 H Estim Creat Clear Calc 42.0 Estimated GFR 33 POC Glucose 155 H Random Glucose 112 Calcium 7.3 L Crossmatch 03/14/21 16:17 WBC RBC Hgb Hct MCV MCH MCHC RDW Plt Count MPV Absolute Nucleated RBC Nucleated RBC % (auto) Sodium Potassium Chloride Carbon Dioxide Anion Gap BUN Creatinine Estim Creat Clear Calc Estimated GFR POC Glucose 232 H Random Glucose Calcium Crossmatch Microbiology Microbiology Results: Microbiology 03/02/21 15:58 Blood - Venous Blood Culture - Final No growth after 5 days. 03/02/21 15:48 Blood - Venous Blood Culture - Final No growth after 5 days. 03/03/21 01:12 Stool Stool Culture - Final 03/02/21 18:14 Urine clean catch - Urine alarcon top Urine Culture - Final Klebsiella pneumoniae Procedures Date of Service Date of Service: 03/14/21 Assessment & Plan Assessment and plan (1) LORI (acute kidney injury): Status: Acute Assessment and Plan: LORI in a setting of sepsis. She does not have a GN secondary to paraprotein disease. Her [place] light chains are stable if not better over time from 6g to 2g. Non oliguric OVerall ATN from sepsis. Cr peak 1.77mg/dL Cr today 1.59mg/dL. No hydronephrosis on USG Plan: - conservative care - monitor renal function daily - Will benefit from ACEi when renal function stable. (2) Multiple myeloma: Status: Chronic Time Spent With Patient Time: Total time spent is greater than 50% in coordination of care (as documented) at patient's floor/unit and/or counseling patient: Progress Note: Quality Stroke Does the patient have a stroke diagnosis?: No
[2021-03-14 20:40] LABS: Glucose, Whole Blood 206 mg/dL (60-115)
[2021-03-14] MEDS: levoFLOXacin/D5W 500 MG/100 ML PIGGYBACK 100 MG IV (21:49)
[2021-03-15] VITALS (8 sets, daily range): BP systolic 130–178; BP diastolic 67–97; PULSE 84–109; RESP 18–20; TEMP 35.7–36.7; O2SAT 95–98
[2021-03-15] MEDS: hydrALAZINE HCl 20 MG/ML VIAL 5 MG IVPUSH (05:41)
[2021-03-15] MEDS: Acetaminophen 325 MG TABLET 650 MG PO (05:55)
[2021-03-15] MEDS: 0.9 % Sodium Chloride Flush 3 ML SYRINGE IVFLUSH ×3 (08:05→20:45)
[2021-03-15] MEDS: Atovaquone 750 MG/5 ML ORAL.SUSP 1500 MG PO (08:05)
[2021-03-15] MEDS: DULoxetine HCl 20 MG CAPSULE.DR PO (08:06)
[2021-03-15] MEDS: Omeprazole 20 MG CAPSULE.DR PO ×2 (08:06→20:44)
[2021-03-15] MEDS: Acyclovir 200 MG CAPSULE 400 MG PO (08:06)
[2021-03-15] MEDS: Aspirin 81 MG TAB.CHEW PO (08:06)
[2021-03-15 08:09] LABS: Glucose, Whole Blood 141 mg/dL (60-115)
[2021-03-15] MEDS: Nystatin Powder 15 GM BOTTLE 1 APPL TOPICAL ×2 (08:42→20:45)
--- NOTE | 2021-03-15 10:02 | MHC.CM.PN ---
Patient has not yet been medically cleared for dc (IV Levaquin/LUE CELLULITIS and s/s of worsening Renal Failure). STR at [facility] is the goal for dc and CM will continue to follow for possible need to adjust the dc plan.
[2021-03-15 11:03] LABS: Glucose, Whole Blood 179 mg/dL (60-115)
--- NOTE | 2021-03-15 11:26 | PM.PNNEP ---
Subjective Subjective Date of Service: 03/17/21 Interval history: no acute events denies dyspnea good UOP Physical Exam Vital Signs: Vital Signs: Last Vital Signs Temp 97.7 F 03/15/21 08:00 Pulse 90 03/15/21 08:00 Resp 20 03/15/21 08:00 BP 130/72 03/15/21 08:00 Pulse Ox 98 03/15/21 08:00 Body Mass Index 37.5 Const: General: no acute distress Orientation/consciousness: oriented to person Neck: Neck: Yes supple Resp: Auscultation: clear to auscultation bilaterally Cardio: Heart sounds: no murmurs and no rubs GI: Palpation (GI): Soft to palpation Auscultation: normal bowel sounds Neuro: General: oriented to person Motor exam (neuro): no asterixis Objective Data Labs CBC & Chem 7: 03/16/21 06:20 03/16/21 06:20 Labs: Laboratory Results - last 24 hr 03/14/21 03/14/21 03/14/21 11:20 16:17 20:34 POC Glucose 155 H 232 H 206 H 03/15/21 03/15/21 08:00 10:56 POC Glucose 141 H 179 H Microbiology Microbiology Results: Microbiology 03/02/21 15:58 Blood - Venous Blood Culture - Final No growth after 5 days. 03/02/21 15:48 Blood - Venous Blood Culture - Final No growth after 5 days. 03/03/21 01:12 Stool Stool Culture - Final 03/02/21 18:14 Urine clean catch - Urine alarcon top Urine Culture - Final Klebsiella pneumoniae Procedures Date of Service Date of Service: 03/15/21 Assessment & Plan Assessment and plan (1) LORI (acute kidney injury): Status: Acute Assessment and Plan: LORI in a setting of MM Non oliguric UPEP pending Urine has > 2gm protein DDX: ATN/Myeloma kidney/AIN No hydronephrosis on USG Plan: Keep IV F I > O No indication for dialysis (2) Multiple myeloma: Status: Chronic Assessment and Plan: Management per Oncology Transfuse PRBC as needed Time Spent With Patient Time: Total time spent is greater than 50% in coordination of care (as documented) at patient's floor/unit and/or counseling patient: Progress Note: Quality Stroke Does the patient have a stroke diagnosis?: No
--- NOTE | 2021-03-15 11:40 | MHC.CLN ---
F/U PO INTAKE 75/100% DIET RX: 2000DM NEUTROPENIC WITH ALLERGY TO CITRUS-APPROPRIATE PT ALSO RECEIVING 8OZ ENSURE BID TO PROVIDE 700KCALS, 40G PROTEIN CONTINUE TO MONITOR PO CLOSELY
[2021-03-15] MEDS: Insulin Lispro 100 UNIT/ML 3 ML VIAL SUBCUT ×2 (12:24→20:44)
[2021-03-15 16:12] LABS: Glucose, Whole Blood 132 mg/dL (60-115)
--- NOTE | 2021-03-15 17:27 | HO.PM.IMPN ---
Subjective Subjective Date of Service: 03/15/21 Interval History: f/u on renal failure, cellulitis, multiple myoloma and angioedema that? required ICU care.? No angioedema, more diarrhea Review of Systems Gen:?no fever Resp:?no sob, no cough CV:?no chest, no ROBIN, no leg edema GI:?No n/v, no abd pain Neuro:?No confusion Physical Exam Vital Signs: Vital Signs: Last Vital Signs Temp 97.5 F 03/15/21 15:04 Pulse 96 03/15/21 15:04 Resp 20 03/15/21 15:04 BP 132/86 03/15/21 15:04 Pulse Ox 97 03/15/21 15:04 Body Mass Index 37.5 Const General:?no acute distress Orientation/consciousness:?oriented to person Neck Neck:?Yes supple Resp Auscultation:?clear to auscultation bilaterally Cardio Heart sounds:?no murmurs and no rubs GI Palpation (GI):?Soft to palpation Auscultation:?normal bowel sounds Neuro General:?oriented to person Motor exam (neuro):?no asterixis Objective Data Current Medications Generic Name Dose Route Start Last Admin Trade Name Freq PRN Reason Stop Dose Admin Acetaminophen 650 mg 03/03/21 00:22 03/15/21 05:55 Acetaminophen 325 Mg Tablet PO 650 mg Q6H PRN Administration Pain, Mild (Pain Scale 1-3) Acyclovir 400 mg 03/03/21 09:00 03/15/21 08:06 Acyclovir 200 Mg Capsule PO 400 mg DAILY DONAVAN Administration Aspirin 81 mg 03/03/21 09:00 03/15/21 08:06 Aspirin 81 Mg Tab.Chew PO 81 mg DAILY DONAVAN Administration Atovaquone 1,500 mg 03/03/21 09:00 03/15/21 08:05 Atovaquone 750 Mg/5 Ml Oral.Susp PO 1,500 mg DAILY DONAVAN Administration Calcium Carbonate 500 mg 03/03/21 09:00 03/15/21 08:06 Calcium Carbonate 500 Mg Tablet PO 500 mg BID DONAVAN Administration Dextrose 25 gm 03/03/21 00:32 Dextrose 50 % 25 Gm/50 Ml Vial IVPUSH Q15M PRN per Hypoglycemia Standing Ord. Protocol Duloxetine HCl 20 mg 03/03/21 09:00 03/15/21 08:06 Duloxetine Hcl 20 Mg Capsule. PO 20 mg DAILY DONAVAN Administration Glucose 15 gm 03/03/21 00:32 Glucose Gel 15 Gm Gel..Gram. PO Q15M PRN per Hypoglycemia Standing Ord. Protocol Hydrocortisone 1 appl 03/03/21 00:26 Hydrocortisone 1 % Ointment 28.35 Gm Tube TOPICAL DAILY PRN Hemorrhoids Protocol Levofloxacin 500 mg in 100 mls @ 100 mls/hr 03/06/21 20:00 03/14/21 23:02 Levaquin IV Infused Q24H [facility] Infusion Insulin Human Lispro 0 unit 03/03/21 07:30 03/15/21 17:21 Insulin Lispro 100 Unit/Ml 3 Ml Vial SUBCUT Not Given QIDACHS [facility] Protocol Lidocaine/Diphenhydr/Alum/Mg/Simeth 10 ml 03/11/21 20:31 Mag&Al/Sim/Diphenhyd/Lidocaine 10 Ml Oral.Susp PO Q4H PRN Mouth Sore Pain Protocol Loperamide HCl 2 mg 03/03/21 08:16 03/03/21 10:07 Loperamide Hcl 2 Mg Capsule PO 2 mg Q4H PRN Administration diarrhea Metoclopramide HCl 5 mg 03/04/21 09:21 03/14/21 07:59 Metoclopramide Hcl 10 Mg/2 Ml Vial IVPUSH 5 mg Q6H PRN Administration Nausea Nystatin 1 appl 03/03/21 15:00 03/15/21 17:22 Nystatin Powder 15 Gm Bottle TOPICAL Not Given TID [facility] Protocol Omeprazole 20 mg 03/03/21 09:00 03/15/21 08:06 Omeprazole 20 Mg Capsule. PO 20 mg BID DONAVAN Administration Ondansetron HCl 4 mg 03/03/21 10:21 03/03/21 10:47 Ondansetron Hcl 4 Mg/2 Ml Vial IVPUSH 4 mg Q8H PRN Administration nausea Pharmacy Consult 1 each 03/02/21 15:27 Consult Rx Perform Med Rec MISCELLANE ONCE PRN Consult order Sodium Chloride 3 ml 03/03/21 08:00 03/15/21 17:21 0.9 % Sodium Chloride Flush 3 Ml Syringe IVFLUSH 3 ml QSHIFT DONAVAN Administration Labs CBC & Chem 7: 03/14/21 08:14 03/14/21 08:14 Labs: Laboratory Results - last 24 hr 03/14/21 03/15/21 03/15/21 20:34 08:00 10:56 POC Glucose 206 H 141 H 179 H 03/15/21 16:02 POC Glucose 132 H Assessment and Plan (1) Neutropenic fever: Status: Resolved (2) Multiple myeloma: Status: Chronic Assessment and Plan: 75 with DM, MM, pancytopenia, who presented w/ weakness and , N/V/Diarrhea and now with progressively worsening renal failure with concern for ATN, she als has has left Upper ext cellulitis that is rather extensive and painful. Angiodema of lip throat on 03/12 pssibly related to citrus or keflex LORI--possibly d/t ATN or d/t MM--will need further investigation and posibly biopsy, Nephrlogy fllowing, Creatinine is trending down, monitor, check tomorrow weakness, diarrhea, vomitting--likely from MM, resolved, continue sumptomatic treatment with Zofran, Reglan and imodium. C dif is negative but repeat since more diarrhea LUE cellulits related to diabetes and immune compromised state from Chemo--improving, UTI d/t -- multi drug resistant, klebsiella, sensitive to Levaquin, continue Levaquin MM on chemo with pancytopenia Empiric atovaquone, acycloivir hematology eval appreciated - 03/08: gravix 480mg times 1, 1 unit rbc. 03/13 hgb 6.6,hct 20. Transfuse 2 units on 03/13--CBC tomorrow Next chemo 03/16, but probably will be postpone, will leave it to oncology DM--continue insulin, follow sugar levels Quality Stroke Does the patient have a stroke diagnosis?: No VTE Prior VTE?: No VTE Risk Level:: Medical - moderate - high VTE Device Contraindication: N/A - Device Ordered VTE Drug Contraindication: Treatment Not Tolerated
[2021-03-15 19:52] LABS: Glucose, Whole Blood 180 mg/dL (60-115)
[2021-03-15] MEDS: levoFLOXacin/D5W 500 MG/100 ML PIGGYBACK 100 MG IV (20:45)
[2021-03-16] MEDS: Metoclopramide HCl 10 MG/2 ML VIAL 5 MG IVPUSH (02:24)
[2021-03-16 04:00] VITALS: BP 157/75; PULSE 94; RESP 18; TEMP 37; O2SAT 97
[2021-03-16 06:50] LABS: Hematocrit 32.4 % (37-47); Hemoglobin 10.6 g/dl (12.0-16.0); Mean Corpuscular HGB Conc 32.7 g/dl (31.0-35.0); Mean Corpuscular Hemoglobin 31.7 pg (27.0-33.0); Mean Platelet Volume 11.7 fL (9.4-12.3); Red Blood Count 3.34 X10*6/uL (4.20-5.50); Red Cell Distribution Width 18.1 % (11.0-16.0)
[2021-03-16 06:53] LABS: Anion Gap 7 (12-20); Blood Urea Nitrogen 19 mg/dL (9-16); Calcium 7.3 mg/dL (8.4-10.2); Carbon Dioxide 22 mmol/L (22-29); Chloride 112 mmol/L (96-108); Creatinine Clr Calc Pharmacy 50.2; Estimated Glomerular Filt Rate 40; Glucose Random 104 mg/dL (60-115); Sodium 138 mmol/L (135-145)
[2021-03-16 07:00] LABS: Platelet Count 72 X10*3/uL (160-400)
[2021-03-16 07:07] LABS: Glucose, Whole Blood 98 mg/dL (60-115)
[2021-03-16] MEDS: Atovaquone 750 MG/5 ML ORAL.SUSP 1500 MG PO (07:27)
[2021-03-16] MEDS: Aspirin 81 MG TAB.CHEW PO (07:27)
[2021-03-16] MEDS: Acyclovir 200 MG CAPSULE 400 MG PO (07:27)
[2021-03-16] MEDS: Omeprazole 20 MG CAPSULE.DR PO (07:27)
[2021-03-16] MEDS: DULoxetine HCl 20 MG CAPSULE.DR PO (07:27)
[2021-03-16] MEDS: 0.9 % Sodium Chloride Flush 3 ML SYRINGE IVFLUSH ×2 (07:30→16:00)
[2021-03-16] MEDS: Nystatin Powder 15 GM BOTTLE 1 APPL TOPICAL ×2 (07:35→16:00)
[2021-03-16 07:55] VITALS: BP 131/83; PULSE 95; RESP 20; TEMP 36; O2SAT 97
--- NOTE | 2021-03-16 08:39 | P.PNNP_ITS ---
Subjective Subjective Date of Service: 03/17/21 Interval history: f/u on renal failure, cellulitis, multiple myoloma and angioedema that? required ICU care.? No angioedema, more diarrhea Physical Exam Vital Signs: Vital Signs: Last Vital Signs Temp 96.8 F 03/16/21 07:55 Pulse 95 03/16/21 07:55 Resp 20 03/16/21 07:55 BP 131/83 03/16/21 07:55 Pulse Ox 97 03/16/21 07:55 Body Mass Index 37.5 Const: General: no acute distress Orientation/consciousness: oriented to person Neck: Neck: Yes supple Resp: Auscultation: clear to auscultation bilaterally Cardio: Heart sounds: no murmurs and no rubs GI: Palpation (GI): Soft to palpation Auscultation: normal bowel sounds Neuro: General: oriented to person Motor exam (neuro): no asterixis Objective Data Labs CBC & Chem 7: 03/16/21 06:20 03/16/21 06:20 Labs: Laboratory Results - last 24 hr 03/15/21 03/15/21 03/15/21 10:56 16:02 19:37 WBC RBC Hgb Hct MCV MCH MCHC RDW Plt Count MPV Absolute Nucleated RBC Nucleated RBC % (auto) Sodium Potassium Chloride Carbon Dioxide Anion Gap BUN Creatinine Estim Creat Clear Calc Estimated GFR POC Glucose 179 H 132 H 180 H Random Glucose Calcium 03/16/21 03/16/21 03/16/21 06:20 06:20 07:04 WBC 2.0 L RBC 3.34 L Hgb 10.6 L Hct 32.4 L MCV 97.0 MCH 31.7 MCHC 32.7 RDW 18.1 H Plt Count 72 L MPV 11.7 Absolute Nucleated RBC 0.000 Nucleated RBC % (auto) 0.0 Sodium 138 Potassium 3.0 L Chloride 112 H Carbon Dioxide 22 Anion Gap 7 L BUN 19 H Creatinine 1.29 Estim Creat Clear Calc 50.2 Estimated GFR 40 POC Glucose 98 Random Glucose 104 Calcium 7.3 L Microbiology Microbiology Results: Microbiology 03/02/21 15:58 Blood - Venous Blood Culture - Final No growth after 5 days. 03/02/21 15:48 Blood - Venous Blood Culture - Final No growth after 5 days. 03/03/21 01:12 Stool Stool Culture - Final 03/02/21 18:14 Urine clean catch - Urine alarcon top Urine Culture - Final Klebsiella pneumoniae Procedures Date of Service Date of Service: 03/16/21 Assessment & Plan Assessment and plan (1) LORI (acute kidney injury): Status: Acute Assessment and Plan: LORI in a setting of MM Non oliguric UPEP pending Urine has > 2gm protein DDX: ATN/Myeloma kidney/AIN No hydronephrosis on USG Cr back to baseline Plan: No need for further IV F I > O No indication for dialysis Supportive care (2) Multiple myeloma: Status: Chronic Assessment and Plan: Management per Oncology Transfuse PRBC as needed Time Spent With Patient Time: Total time spent is greater than 50% in coordination of care (as docum ented) at patient's floor/unit and/or counseling patient: Time with patient: 15 - 24 minutes Progress Note: Quality Stroke Does the patient have a stroke diagnosis?: No
[2021-03-16 10:18] VITALS: BP 131/83; PULSE 95; O2SAT 97
[2021-03-16 11:01] LABS: Glucose, Whole Blood 141 mg/dL (60-115)
[2021-03-16 11:17] VITALS: BP 122/57; PULSE 102; RESP 20; TEMP 36.6; O2SAT 98
[2021-03-16 12:00] LABS: COVID-19 Test Negative (Negative)
--- NOTE | 2021-03-16 13:29 | P.PNIM_ITS ---
Subjective Subjective Date of Service: 03/16/21 Interval History: f/u on renal failure, cellulitis, multiple myoloma and angioedema that? required ICU care.? No angioedema, no diarrhea, Review of Systems Gen: no fever Resp: no sob, no cough CV: no chest, no ROBIN, no leg edema GI: No n/v, no abd pain Neuro: No confusion Physical Exam Vital Signs: Vital Signs: Last Vital Signs Temp 97.8 F 03/16/21 11:17 Pulse 102 H 03/16/21 11:17 Resp 20 03/16/21 11:17 BP 122/57 L 03/16/21 11:17 Pulse Ox 98 03/16/21 11:17 Body Mass Index 37.5 Const General:?no acute distress Orientation/consciousness:?oriented to person Neck Neck:?Yes supple Resp Auscultation:?clear to auscultation bilaterally Cardio Heart sounds:?no murmurs and no rubs GI Palpation (GI):?Soft to palpation Auscultation:?normal bowel sounds Neuro General:?oriented to person Motor exam (neuro):?no asterixis Objective Data Current Medications Generic Name Dose Route Start Last Admin Trade Name Freq PRN Reason Stop Dose Admin Acetaminophen 650 mg 03/03/21 00:22 03/15/21 05:55 Acetaminophen 325 Mg Tablet PO 650 mg Q6H PRN Administration Pain, Mild (Pain Scale 1-3) Acyclovir 400 mg 03/03/21 09:00 03/16/21 07:27 Acyclovir 200 Mg Capsule PO 400 mg DAILY DONAVAN Administration Aspirin 81 mg 03/03/21 09:00 03/16/21 07:27 Aspirin 81 Mg Tab.Chew PO 81 mg DAILY DONAVAN Administration Atovaquone 1,500 mg 03/03/21 09:00 03/16/21 07:27 Atovaquone 750 Mg/5 Ml Oral.Susp PO 1,500 mg DAILY DONAVAN Administration Calcium Carbonate 500 mg 03/03/21 09:00 03/16/21 07:27 Calcium Carbonate 500 Mg Tablet PO 500 mg BID DONAVAN Administration Dextrose 25 gm 03/03/21 00:32 Dextrose 50 % 25 Gm/50 Ml Vial IVPUSH Q15M PRN per Hypoglycemia Standing Ord. Protocol Duloxetine HCl 20 mg 03/03/21 09:00 03/16/21 07:27 Duloxetine Hcl 20 Mg Capsule. PO 20 mg DAILY DONAVAN Administration Glucose 15 gm 03/03/21 00:32 Glucose Gel 15 Gm Gel..Gram. PO Q15M PRN per Hypoglycemia Standing Ord. Protocol Hydrocortisone 1 appl 03/03/21 00:26 Hydrocortisone 1 % Ointment 28.35 Gm Tube TOPICAL DAILY PRN Hemorrhoids Protocol Levofloxacin 500 mg in 100 mls @ 100 mls/hr 03/06/21 20:00 03/15/21 22:00 Levaquin IV Infused Q24H [facility] Infusion Insulin Human Lispro 0 unit 03/03/21 07:30 03/16/21 11:26 Insulin Lispro 100 Unit/Ml 3 Ml Vial SUBCUT Not Given QIDACHS [facility] Protocol Lidocaine/Diphenhydr/Alum/Mg/Simeth 10 ml 03/11/21 20:31 Mag&Al/Sim/Diphenhyd/Lidocaine 10 Ml Oral.Susp PO Q4H PRN Mouth Sore Pain Protocol Loperamide HCl 2 mg 03/03/21 08:16 03/03/21 10:07 Loperamide Hcl 2 Mg Capsule PO 2 mg Q4H PRN Administration diarrhea Metoclopramide HCl 5 mg 03/04/21 09:21 03/16/21 02:24 Metoclopramide Hcl 10 Mg/2 Ml Vial IVPUSH 5 mg Q6H PRN Administration Nausea Nystatin 1 appl 03/03/21 15:00 03/16/21 07:35 Nystatin Powder 15 Gm Bottle TOPICAL 1 appl TID DONAVAN Administration Protocol Omeprazole 20 mg 03/03/21 09:00 03/16/21 07:27 Omeprazole 20 Mg Capsule. PO 20 mg BID DONAVAN Administration Ondansetron HCl 4 mg 03/03/21 10:21 03/03/21 10:47 Ondansetron Hcl 4 Mg/2 Ml Vial IVPUSH 4 mg Q8H PRN Administration nausea Pharmacy Consult 1 each 03/02/21 15:27 Consult Rx Perform Med Rec MISCELLANE ONCE PRN Consult order Sodium Chloride 3 ml 03/03/21 08:00 03/16/21 07:30 0.9 % Sodium Chloride Flush 3 Ml Syringe IVFLUSH 3 ml QSHIFT DONAVAN Administration Labs CBC & Chem 7: 03/16/21 06:20 03/16/21 06:20 Labs: Laboratory Results - last 24 hr 03/15/21 03/15/21 03/16/21 16:02 19:37 06:20 MCV 97.0 MCH 31.7 MCHC 32.7 RDW 18.1 H Plt Count 72 L MPV 11.7 Absolute Nucleated RBC 0.000 Nucleated RBC % (auto) 0.0 Anion Gap Estim Creat Clear Calc Estimated GFR POC Glucose 132 H 180 H Random Glucose Calcium COVID-19 (RYNA) COVID-19 Clin Com 03/16/21 03/16/21 03/16/21 06:20 07:04 10:56 MCV MCH MCHC RDW Plt Count MPV Absolute Nucleated RBC Nucleated RBC % (auto) Anion Gap 7 L Estim Creat Clear Calc 50.2 Estimated GFR 40 POC Glucose 98 141 H Random Glucose 104 Calcium 7.3 L COVID-19 (RYAN) COVID-19 Clin Com 03/16/21 11:35 MCV MCH MCHC RDW Plt Count MPV Absolute Nucleated RBC Nucleated RBC % (auto) Anion Gap Estim Creat Clear Calc Estimated GFR POC Glucose Random Glucose Calcium COVID-19 (RYAN) Negative COVID-19 Clin Com See Note Assessment and Plan (1) Neutropenic fever: Status: Resolved Assessment and Plan: 75 with DM, MM, pancytopenia,? who presented w/ weakness and , N/V/Diarrhea and now with progressively worsening renal failure with concern for ATN, she als has has left Upper ext cellulitis that is rather extensive and painful. ? Angiodema of? lip throat on 03/12 pssibly related to citrus or keflex LORI--possibly d/t ATN or d/t MM--will need further investigation and posibly biopsy, Nephrlogy fllowing, Creatinine is trending down, near baseline weakness, diarrhea, vomitting--likely from MM, resolved, continue sumptomatic treatment with Zofran, Reglan and imodium. No diarrhea just soft stool LUE cellulits related to diabetes and immune compromised state from Chemo--improving, UTI d/t? -- multi drug resistant, klebsiella, sensitive to Levaquin, continue Levaquin.. 10 days now, dc after today MM on chemo with pancytopenia Empiric atovaquone, acycloivir hematology eval appreciated - 03/08: gravix 480mg times 1, 1 unit rbc. 03/13 hgb 6.6,hct 20. Transfuse 2 units on 03/13--H/H remains Next chemo 03/16, but probably will be postpone, will leave it to oncology DM--continue insulin, follow sugar levels Awaiting short term rehab (2) Multiple myeloma: Status: Chronic Assessment and Plan: 75 with DM, MM, pancytopenia, who presented w/ weakness and , N/V/Diarrhea and now with progressively worsening renal failure with concern for ATN, she als has has left Upper ext cellulitis that is rather extensive and painful. Angiodema of lip throat on 03/12 pssibly related to citrus or keflex LORI--possibly d/t ATN or d/t MM--will need further investigation and posibly biopsy, Nephrlogy fllowing, Creatinine is trending down, monitor, check tomorrow weakness, diarrhea, vomitting--likely from MM, resolved, continue sumptomatic treatment with Zofran, Reglan and imodium. C dif is negative but repeat since more diarrhea LUE cellulits related to diabetes and immune compromised state from Chemo--improving, UTI d/t -- multi drug resistant, klebsiella, sensitive to Levaquin, continue Levaquin MM on chemo with pancytopenia Empiric atovaquone, acycloivir hematology eval appreciated - 03/08: gravix 480mg times 1, 1 unit rbc. 03/13 hgb 6.6,hct 20. Transfuse 2 units on 03/13--CBC tomorrow Next chemo 03/16, but probably will be postpone, will leave it to oncology DM--continue insulin, follow sugar levels Quality Stroke Does the patient have a stroke diagnosis?: No VTE Prior VTE?: No VTE Risk Level:: Medical - moderate - high VTE Device Contraindication: N/A - Device Ordered VTE Drug Contraindication: Treatment Not Tolerated
--- NOTE | 2021-03-16 13:56 | MHC.CM.PN ---
Patient has been medically cleared for dc to SNF/STR today. Patient will dc to her first choice facility- [facility] today at 5PM, via [facility], Patient/Daughter/Jenny @ [phone] are aware of and in agreement with the dc plan.
--- NOTE | 2021-03-16 15:19 | PM.DS ---
DS: Providers Provider Date of Service: 03/16/21 Date of admission: 03/03/21 00:22 Primary care physician: Iveth Cowart MD Consults: 03/08/21 09:38 Consult to Hematology / Oncology Routine Consulting Provider: Carissa Raman Reason for consultation: MM, panctyopenia, weakness 03/10/21 10:10 Consult to Nephrology Routine Consulting Provider: Tye Vu Reason for consultation: LORI after hypotension, not improving with recovered BP and IVF DS: Diagnosis Discharge Diagnosis (1) Neutropenic fever: Status: Resolved (2) Multiple myeloma: Status: Chronic DS: Medications Discharge Medications Home Medications: Home Medications Medication Instructions Recorded Confirmed aspirin 81 mg chewable tablet 81 mg PO DAILY 04/22/20 03/02/21 insulin aspart U-100 100 unit/mL 4 - 24 unit SUBCUT TID 04/22/20 03/02/21 (3 mL) subcutaneous pen omeprazole 20 mg capsule,delayed 20 mg PO BID 04/22/20 03/02/21 release calcium carbonate 500 mg (1,250 1 tab PO BID 02/02/21 03/02/21 mg)-vitamin D3 125 unit tablet duloxetine 20 mg capsule,delayed 1 cap PO DAILY 02/22/21 03/02/21 release potassium chloride 20 mEq 40 meq PO DAILY 02/22/21 03/02/21 tablet,extended release nystatin 100,000 unit/gram topical 1 appl TOPICAL TID 03/02/21 03/02/21 powder Previous Rx's Medication Instructions Recorded acyclovir 400 mg tablet 400 mg PO DAILY #90 tab 10/26/20 ondansetron HCl 4 mg tablet 8 mg PO Q8H PRN #50 tab 10/26/20 (Zofran) atovaquone 750 mg/5 mL oral 1,500 mg PO DAILY #300 ml 10/29/20 suspension (Mepron) magnesium oxide 400 mg (241.3 mg 400 mg PO BIDPC #60 tab 11/26/20 magnesium) tablet hydrocortisone 2.5 % topical cream 1 appl OR DAILY PRN #100 g 03/02/21 with perineal applicator (Anusol-HC) sitz bath #1 ea 03/02/21 DS: Summary Hospital Course Hospital Course: Chief Complaint: Diarrhea, weakness 75-year-old female with history of multiple myeloma (currently obtaining chemotherapy, follows with oncology Dr. Raman), also has history of diabetes mellitus type 2 (not use long-acting insulin but does use sliding scale insulin), hypertension, hyperlipidemia, obstructive sleep apnea (not use CPAP), who presented because of diarrhea and weakness.? History is from patient and from ED notes. Patient was recently hospitalized here and discharged on 02/26/2021 after being treated for? neutropenic fever and diarrhea; no definitive source was found for the infection but the infection was thought to be secondary to bacterial translocation; patient received IV antibiotics and discharged on oral Ceftin for a total of 7 day course of antibiotic therapy.? The patient endorses that she has diarrhea ?on and off ?since starting chemotherapy in October 2020, but for the last 4-5 days she has been having frequent ongoing diarrhea as well as weakness, nausea, slight mild abdominal pain, decreased oral intake and decreased appetite.? She also notes chronic chills.? She states that she finished her antibiotic course, but her worsening of symptoms occurred even before her antibiotic course was fully completed.? She feels like her current symptoms are very similar to the symptoms she experienced when she was hospitalized for febrile neutropenia. Hospital course: patient was admitted for weakness due to diarrhea likely due to neutropenia. cdif was negative, she was given iv fluids and imodium. symptoms improved. she was noted to have left upper extremity skin tear with surrounding erythema/cellulitis, not septic, will treated with Ancef unfortunately developped angioedema with marked swelling of lips and throat and has to be treated in ICU for an overnight LORI--Probably due to pre renal azotemia for diarrhea, although there was concern for possible ATN. She was hydrated and renal function has significantly improved with creatinine presently 1.29, it was as high as 1.77. She was followed by the nephrology service. LUE cellulits related to diabetes and immune compromised state from Chemo--improving, treated with Anecef but developped angioedema and this was discontinued and was continued on Levaquin which she had already been taken for UTI. UTI d/t? -- multi drug resistant, klebsiella, sensitive to Levaquin, and has been treated for 10 days. MM on chemo with pancytopenia Empiric atovaquone, acycloivir hematology eval appreciated - and will follow up on outpatient basis 03/08: gravix 480mg times 1 for leukopenia Anemia of chronic disease related to multiple myeloma , received 1 unit rbc. 03/13 when hgb 6.6,hct 20. Transfuse 2 units on 03/13 when hemoglobin was 6.7C. Hemoglobin today is 10.6 unchanged the last 3 days DM--continue insulin, follow sugar levels She will be going to short term rehab Time Spent with Patient Time attestation: Total time spent providing and/or coordinating discharge services: Discharge coordination time: Greater than 30 minutes Quality: Stroke Does the patient have a stroke diagnosis?: No Physical Exam Vital Signs: Vital Signs: Last Vital Signs Temp 97.8 F 03/16/21 11:17 Pulse 102 H 03/16/21 11:17 Resp 20 03/16/21 11:17 BP 122/57 L 03/16/21 11:17 Pulse Ox 98 03/16/21 11:17 Body Mass Index 37.5 Const General:?no acute distress Orientation/consciousness:?oriented to person Neck Neck:?Yes supple Resp Auscultation:?clear to auscultation bilaterally Cardio Heart sounds:?no murmurs and no rubs GI Palpation (GI):?Soft to palpation Auscultation:?normal bowel sounds Neuro General:?oriented to person Motor exam (neuro):?no asterixis ? DS: Data Data Completed and Pending Completed studies during hospitalization [Text1]: Procedures Extraction of Iliac Bone Marrow, Percutaneous Approach, Diagnostic (10/09/20) Transfusion of Nonautologous Red Blood Cells into Peripheral Vein, Percutaneous Approach (02/22/21) Labs on day of discharge: Laboratory Results - last 24 hr 03/15/21 03/15/21 03/16/21 16:02 19:37 06:20 WBC 2.0 L RBC 3.34 L Hgb 10.6 L Hct 32.4 L MCV 97.0 MCH 31.7 MCHC 32.7 RDW 18.1 H Plt Count 72 L MPV 11.7 Absolute Nucleated RBC 0.000 Nucleated RBC % (auto) 0.0 Sodium Potassium Chloride Carbon Dioxide Anion Gap BUN Creatinine Estim Creat Clear Calc Estimated GFR POC Glucose 132 H 180 H Random Glucose Calcium COVID-19 (RYAN) COVID-19 Clin Com 03/16/21 03/16/21 03/16/21 06:20 07:04 10:56 WBC RBC Hgb Hct MCV MCH MCHC RDW Plt Count MPV Absolute Nucleated RBC Nucleated RBC % (auto) Sodium 138 Potassium 3.0 L Chloride 112 H Carbon Dioxide 22 Anion Gap 7 L BUN 19 H Creatinine 1.29 Estim Creat Clear Calc 50.2 Estimated GFR 40 POC Glucose 98 141 H Random Glucose 104 Calcium 7.3 L COVID-19 (RYAN) COVID-19 Clin Com 03/16/21 11:35 WBC RBC Hgb Hct MCV MCH MCHC RDW Plt Count MPV Absolute Nucleated RBC Nucleated RBC % (auto) Sodium Potassium Chloride Carbon Dioxide Anion Gap BUN Creatinine Estim Creat Clear Calc Estimated GFR POC Glucose Random Glucose Calcium COVID-19 (RYAN) Negative COVID-19 Clin Com See Note Discharge Plan Discharge Anticipated Discharge Date/Time: 03/16/21 15:10 Patient Disposition: Xfer [facility] Discharge Diagnosis: diarrhea Referrals: [facility] [Outside] - 1 Week Iveth Cowart MD [Primary Care Provider] - 1 Week Discharge Medications: Continued ondansetron HCl [Zofran] 4 mg Tablet 8 mg PO Q8H PRN (Reason: Nausea And Vomiting) Qty: 50 RF: 4 acyclovir 400 mg Tablet 400 mg PO DAILY Qty: 90 RF: 4 magnesium oxide 400 mg (241.3 mg magnesium) Tablet 400 mg PO BIDPC Qty: 60 RF: 0 calcium carbonate-vitamin D3 500 mg(1,250mg) -125 unit Tablet 1 tab PO BID RF: 0 hydrocortisone [Anusol-HC] 2.5 % Cream With Perineal Applicator 1 appl OR DAILY PRN (Reason: Pain) Qty: 100 RF: 0 (DME) sitz bath Kit Qty: 1 RF: 0 atovaquone [Mepron] 750 mg/5 mL Suspension 1,500 mg PO DAILY Qty: 300 RF: 6 duloxetine 20 mg capsule,delayed release(DR/EC) 1 cap PO DAILY RF: 0 potassium chloride 20 mEq tablet extended release 40 meq PO DAILY RF: 0 nystatin 100,000 unit/gram powder 1 appl topical TID RF: 0 aspirin 81 mg tablet,chewable 81 mg PO DAILY RF: 0 insulin aspart U-100 100 unit/mL (3 mL) insulin pen 4 - 24 unit subcut TID RF: 0 omeprazole 20 mg capsule,delayed release(DR/EC) 20 mg PO BID RF: 0 Discontinued spironolactone 50 mg Tablet 25 mg PO DAILY Qty: 0 RF: 0 Discharge Orders: Discharge Order (Routine); Ordered 03/16/21 Ordered By: Jeanmarie Concepcion Diet: advance to usual diet Activity on Discharge: As tolerated Care Plan Goals: recovery Health Concerns: MM, weakness Plan of Treatment: rehab, follow up with hematology, hold aldactone for now, can use imodium for diarrhea Assessment: see above
[2021-03-16 15:22] VITALS: BP 138/70; PULSE 108; RESP 18; TEMP 36.9; O2SAT 96
[2021-03-16 16:07] LABS: Glucose, Whole Blood 196 mg/dL (60-115)
[2021-03-16] MEDS: Insulin Lispro 100 UNIT/ML 3 ML VIAL SUBCUT (16:28)
[2021-03-16] MEDS: Potassium Chloride Packet 20 MEQ PACKET 40 MEQ PO (16:28)
[2021-03-17 14:41] LABS: PEU Ran-Abn Protein Band 1 7 mg/dL (NONE DETECTED); PEU-Protein Creat Ratio Rand 5.014 (0.021-0.161); PEU-Rand. Prot/Creat Ratio 5014 mg/g creat (21-161); PEU-Random Ur. Gamma Globulin 48 %; PEU-Random Urine A1 Globulin 1 %; PEU-Random Urine A2 Globulin 2 %; PEU-Random Urine Albumin 3 %; PEU-Random Urine Beta Globulin 46 %; PEU-Random Urine Creatinine 69 mg/dL (20-275); PEU-Random Urine Protein 346 mg/dL (5-24)
== END 2021-03-16 17:10 | disposition skilled nursing facility (03) | DRG 463 ==
LOC: HO.ED 18:20 → HO.S3 03-03 07:21 → HO.ICU 03-12 04:31 → HO.IMC 03-12 13:09
PROVIDERS: Family Medicine; Internal Medicine; Internal Medicine Hypertension Specialist; Physician Assistant Medical; Registered Nurse Community Health; Admitting Provider Internal Medicine; Emergency Provider Emergency Medicine; PCP Internal Medicine; Visit Provider Internal Medicine
DX: N39.0 Urinary tract infection, site not specified (principal); N17.0 Acute kidney failure with tubular necrosis; D61.810 Antineoplastic chemotherapy induced pancytopenia; E87.2 Acidosis; C90.00 Multiple myeloma not having achieved remission; B96.1 Klebsiella pneumoniae [K. pneumoniae] as the cause of diseases classified elsewhere; D63.0 Anemia in neoplastic disease; E78.5 Hyperlipidemia, unspecified; G47.33 Obstructive sleep apnea (adult) (pediatric); T45.1X5A Adverse effect of antineoplastic and immunosuppressive drugs, initial encounter; Z96.642 Presence of left artificial hip joint; Z20.822 Contact with and (suspected) exposure to COVID-19; Z79.4 Long term (current) use of insulin; Z87.891 Personal history of nicotine dependence; T78.3XXA Angioneurotic edema, initial encounter; L03.114 Cellulitis of left upper limb; Z88.2 Allergy status to sulfonamides; Z88.5 Allergy status to narcotic agent; Y92.9 Unspecified place or not applicable; Z79.82 Long term (current) use of aspirin; Z79.899 Other long term (current) drug therapy; Z66 Do not resuscitate
CPT/HCPCS: 0241U; 36415; 76775; 80048; 80076; 81001; 82040; 82570; 82803; 82947; 83735; 84100; 84156; 84166; 84300; 85007; 85014; 85018; 85025; 85027; 86850; 86900; 86901; 86923; 87040; 87045; 87046; 87086; 87088; 87186; 87493; 87635; 93005; 93971; 96360; 96361; 97110; 97116; 97162; 97530; 99220; 99285; J0171; J0690; J1200; J1447; J1956; J2405; J2765; J2930; J3475; P9016; P9047

== ENCOUNTER 2021-04-15 12:30 | Outpatient (RCR) | payer OTHER, SELFPAY ==
--- NOTE | 2020-10-06 12:19 | P.CNHO_ITS ---
Subjective - Subjective Chief complaint: Consult for: 1. Hypercalcemia 2. Multiple myeloma. Patient: new to practice Consult date: 10/06/20 Requesting Physician: Derrick. Medical Summary: DIAGNOSIS: 1. Hypercalcemia. 2. Multiple myeloma. HPI - Consult Narrative Reason for consult: Consult for 1. Hypercalcemia. 2. Multiple myeloma. Narrative: Klaudia Dow is a pleasant 75 year old lady, who tells me that she had COVID back in June 2020. She was admitted to [facility] for about 22 days. She she tells me it was complicated by pancreatitis. She has not felt well since then. She was admitted again 08/20/2020. Lipase was elevated. Initial CT abdomen did not show any peripancreatic inflammation. Imaging did show patchy airspace opacities bilaterally. Creatinine 1.8. O2 sat: Hypoxic. She was treated with steroids. Repeat CT did reveal acute interstitial pancreatitis. No evidence of necrosis or collection. As per revised Jayla classification, with no organ failure, no local or systemic complications. Does not drink alcohol. Status post cholecystectomy. Normal triglycerides. Concern was pancreatic malignancy. Autoimmune pancreatitis was ruled out. Was noted to have splenomegaly and platelet count of 90. Concern was undiagnosed cirrhosis, compensated, and portal hypertension. Doppler study did not reveal any thrombus in the portal venous system. Hospital course was complicated by acute kidney injury which resolved with IV hydration and improved oral intake. She still does not have an appetite. She still has symptoms of nausea and vomiting all the time. It has gotten better however she still not able to swallow solids. Even the liquids are hard to tolerate and sometimes come up. She has to take Zofran. She cannot tolerate Ensure nor Glucerna. She is trying to drink smoothies with protein powder in it along with some fruit. She has lost weight. She was 267 lb and now down to 221, since July. She feels exhausted. She has been noted to have mild pancytopenia since 08/17 5. She has been noted to be hypercalcemic. Since [id number], calcium has been between 8.9 and 9.9. 07/27: Calcium 10.3. It has been fluctuating since then. Calcium level 09/30/20:11.8. Albumin: 2.3. Actual calcium: 13.6. She used to be on calcium supplements: Vitamin-D 2000 internationally units and calcium plus vitamin-D 500 daily. Stopped that a few months ago. ROS: Fatigue. No fever. No appetite. Weight loss. Occasional headache. No shortness of breath but does get chest pain. Complains of pain in the abdomen in the upper middle area. Nausea and vomiting. Heartburn. Constipation. No gross blood in the stools. Occasional diarrhea. Increased urinary frequency. Had UTI in July. Complains of pain in her right knee which she is due for a replacement. Elbows and shoulders. Takes Tylenol. Legs have become weak. She has to walk with the help of her walker/wheelchair. Feels depressed. FAMILY HISTORY: A sister had cancer of breast, colon and polycythemia. SOCIAL HISTORY: She worked at [employer]. . Has 2 children. Denies smoking. Denies alcohol. Review of Systems - Constitutional Reports no additional constitutional complaints, Reports headache(s), Reports lack of energy, Reports malaise, Reports weakness, Reports weight loss - Eyes Reports no additional eye complaints, Denies blurry vision - ENT Reports no additional ear, nose, mouth, and throat complaints - Cardiovascular Reports no additional cardiovascular complaints, Reports chest pain - Respiratory Reports no additional respiratory complaints - Gastrointestinal Reports no additional gastrointestinal complaints, Reports abdominal pain, Reports bloating, Reports change in bowel habits, Reports constipation, Reports nausea, Reports vomiting - Genitourinary Reports no additional female genitourinary complaints - Musculoskeletal Reports no additional musculoskeletal complaints - Integumentary/Breasts Skin/Breast: Reports no additional skin complaints - Neurologic Reports no additional neurologic complaints - Psychiatric Reports no additional psychiatric complaints - Endocrine Reports no additional endocrine complaints - Hematologic/Lymphatic Reports no additional hematologic/lymphatic complaints - Allergic/Immunologic Reports no additional allergic/immunologic complaints Oncology Screenings - ECOG Performance Status ECOG Performance Status: 2 [facility] Medical History: Medical History (Last Reviewed 10/20/20 @ 10:57 by Donya Purvis) Diabetes mellitus type 2, controlled, without complications Essential hypertension Hypercalcemia Hyperlipidemia, unspecified Hypoglycemia unawareness associated with type 2 diabetes mellitus Obstructive sleep apnea Pancytopenia Subclinical hyperthyroidism Family History: Family History (Last Reviewed 10/20/20 @ 10:57 by Donya Purvis) Father No problems noted. Mother Heart disease Brother Atrial fibrillation Brother Atrial fibrillation Brother Atrial fibrillation Surgical History: Surgical History (Last Reviewed 10/20/20 @ 10:57 by Donya Purvis) History of knee replacement History of left hip replacement Social History: Social History (Last Reviewed 10/20/20 @ 10:57 by Donya Purvis) Living Situation History: Household Members: Family Housing: House Alcohol History: Alcohol intake: never Alcohol History Details: Alcohol intake frequency: does not drink Tobacco History: Smoking Status: Former smoker Substance Use History: Use of substances other than those prescribed or required for medical reasons : No Advance Directives: Advance Directives Date on File: 10/09/20 Nutrition Assessment: Patient : No Occupation Assessmet: service: No Current occupational status: retired Smoking status: Former smoker Home Medications and Allergies Current Medications: Current Medications Generic Name Dose Route Start Last Admin Trade Name Freq PRN Reason Stop Dose Admin Sodium Chloride 1,000 mls @ 500 mls/hr 10/06/20 12:15 Ns IVCONT 10/06/20 14:14 .Q2H [facility] Home Medications Medication Instructions Recorded Confirmed Type allopurinol 300 mg tablet 300 mg PO DAILY 04/22/20 10/09/20 History aspirin 81 mg chewable tablet 81 mg PO DAILY 04/22/20 10/09/20 History docusate sodium 100 mg capsule 100 mg PO BID 04/22/20 10/09/20 History insulin aspart U-100 100 unit/mL 2 - 12 unit SUBCUT TID 04/22/20 10/09/20 History (3 mL) subcutaneous pen omeprazole 20 mg capsule,delayed 20 mg PO DAILY 04/22/20 10/09/20 History release amlodipine 5 mg tablet 5 mg PO DAILY 09/30/20 10/09/20 History insulin detemir U-100 100 unit/mL 20 unit SUBCUT BEDTIME ml 09/30/20 10/09/20 History (3 mL) subcutaneous pen polyethylene glycol 3350 [Miralax] 17 g PO DAILY 10/06/20 10/09/20 History bisacodyl 1 supp NC DAILY PRN 10/09/20 10/20/20 History sennosides [senna] 8.6 mg PO BEDTIME 10/09/20 10/20/20 History tramadol 1 tab PO Q12H PRN 10/20/20 10/20/20 History Allergies Allergy/AdvReac Type Severity Reaction Status Date / Time codeine [CODEINE] Allergy Intermediate NAUSEA & Verified 07/26/20 06:57 VOMITING, vomiting lisinopril [LISINOPRIL] Allergy Intermediate COUGH, Verified 07/26/20 06:57 Coughing sulfamethoxazole Allergy Intermediate RASH Verified 07/26/20 06:57 [From BACTRIM] Physical Exam - Constitutional Present: moderate distress - Routine HEENT Exam Head: Present: normal inspection ENT: Present: mucous membranes moist - Routine Neck Exam Present: supple - Routine Respiratory Exam Present: CTAB - Routine Cardiovascular Exam Cardiovascular: Present: RRR, S1, S2 - Routine Abdominal Exam Present: tenderness - Routine Rectal Exam Patient deferred: digital exam - Routine Extremities Exam Present: nontender - Routine Skin Exam Present: intact - Routine Neurological Exam Present: alert, oriented X3 Hem/Onc Consult Result - Labs CBC & Chem 7: 10/06/20 12:25 10/06/20 12:25 Assessment and Plan (1) Hypercalcemia Status: Acute This is a pleasant 75-year-old lady with a history of her diabetes, recent COVID infection back in June, complicated by interstitial pancreatitis, now presents with hypercalcemia. She had an SIEP done back in 2018: IgG: To 637, IgA: 66, IgM: 67. IgG kappa monoclonal band present. Urine IEP: Showed free light chains. Given the clinical picture, most likely she has Multiple Myeloma. PLAN: I will proceed with further evaluation. I will recheck SIEP and serum free light chain ratio. Check beta 2 microglobulin level for prognosis. Will check skeletal survey. Will proceed with a PET scan for further evaluation. She will need a bone marrow exam for confirmation. Will set that up through IR. In the meantime I will give her IV hydration, for the hypercalcemia. Will arrange for denosumab, for hypercalcemia and multiple myeloma. I will try to expedite her appointment with GI, given the nausea vomiting weight loss and intolerance to solids. The plan from the discharge summary from [facility] revealed that she was sup posed to have been endoscopic ultrasound for further evaluation, to assess for malignancy. I discussed that with the GI fellow at [facility]. Dr. Marques's office will arrange. Thanks, CC: Dr. Cowart. Dr. Dr. Givens. Dr. Soliman.
[2020-10-06 12:36] VITALS: BP 111/66; PULSE 103; RESP 12; TEMP 36.2; O2SAT 99
[2020-10-06 12:37] LABS: PLT CLUMP 1
[2020-10-06 12:39] LABS: Baso%MD 0.8 %; Eos%MD 0.8 %; Hematocrit 33.7 % (37-47); Hemoglobin 10.8 g/dl (12.0-16.0); Lymph%MD 41.4 %; Mean Corpuscular Hemoglobin 31.2 pg (27.0-33.0); Mean Corpuscular Volume 97.4 fL (80-98); Mono%MD 5.4 %; Neut%MD 51.6 %; Red Blood Count 3.46 X10*6/uL (4.20-5.50); Red Cell Distribution Width 15.6 % (11.0-16.0)
[2020-10-06 12:41] LABS: Platelet Count 94 X10*3/uL (160-400); White Blood Count 2.4 X10*3/uL (4.8-10.8)
--- NOTE | 2020-10-06 12:49 | MHC.HEMONCMA ---
Pt presents for consult on hypercalcemia. History reviewed.
[2020-10-06] MEDS: 0.9 % Sodium Chloride 1,000 ML 500 ML IVCONT (13:02)
[2020-10-06 13:25] LABS: Alanine Aminotransferase 13 U/L (0-31); Albumin Level 2.1 g/dL (3.5-5.0); Alkaline Phosphatase 59 U/L (39-117); Anion Gap 11 (12-20); Aspartate Amino Transferase 22 U/L (5-31); Bilirubin Total 0.9 mg/dL (0.0-1.0); Blood Urea Nitrogen 12 mg/dL (9-16); Carbon Dioxide 22 mmol/L (22-29); Chloride 107 mmol/L (96-108); Estimated Glomerular Filt Rate 41; Glucose Random 130 mg/dL (60-115); Potassium 3.7 mmol/L (3.3-5.1); Sodium 136 mmol/L (135-145); Total Protein 7.7 g/dL (6.5-8.0)
[2020-10-06 13:32] LABS: Calcium 11.2 mg/dL (8.4-10.2)
[2020-10-06 14:49] LABS: Erythrocyte Sedimentation Rate 18 MM/HR (0-20)
[2020-10-06 16:40] LABS: Atypical Lymph Absolute Manual 0.1 x10*3/uL; Atypical Lymphs Percent Manual 3 % (0-6); Lymphocytes Absolute Manual 1.2 X10*3/uL (0.6-4.8); Lymphocytes Percent Manual 50 % (20-40); Monocytes Absolute Manual 0.1 X10*3/uL (0.0-1.2); Monocytes Percent Manual 5 % (2-11); Neutrophils Percent Manual 42 % (45-73)
[2020-10-06 16:41] LABS: Band Neutrophils Percent 0 % (3-5); Platelet Estimate DECREASED (NORMAL); Platelet Morphology Comment NOTED; RBC Morphology NORMAL
[2020-10-06 16:42] LABS: Large Platelet PRESENT
--- NOTE | 2020-10-07 10:44 | HO.HEMONCPA ---
PA request submitted for Denosumab (Xgeva), awaiting decision.
[2020-10-08 00:12] LABS: Lambda Light Chain, Free Serum 10.3 mg/L (5.7-26.3)
[2020-10-09 14:13] LABS: IgA 21 mg/dL (70-320); IgG 4482 mg/dL (600-1540); IgM 27 mg/dL (50-300)
[2020-10-10 01:47] LABS: Beta-2 Microglobulin, Serum 22.59 mg/L (< OR = 2.51)
--- NOTE | 2020-10-12 11:08 | HO.HEMONCPA ---
Called [facility] today to check the status of MICA rogel, s/w Alexa who adv that the Denosumab (Xgeva) is not covered under pt's plan unless pt has metastatic breast or lung cancer. Dr Raman is not in today, will speak with her when she is in to let her know and see how she would like to move forward. Request is still in pending status right now.
--- NOTE | 2020-10-16 08:50 | MHC.HEMONC ---
pt called requesting some meds be ordered following her D/C from inpatient yesterday. Per Dr Alicia - she is not to continue on further steroids. She is looking for antibiotic and Reglan. I called Marina in casework and she is looking into this by contacting Dr Randall.
--- NOTE | 2020-10-16 12:14 | MHC.HEMONCSW ---
PET SCAN UNDER RECONSIDERATION AT [facility]. CASE# [id number] WAIT DECISION.
--- NOTE | 2020-10-19 13:35 | HO.HEMONCPA ---
Reconsidertation request for PET scan was denied. Ref#[id number]
[2020-10-20 10:56] VITALS: BP 103/57; PULSE 86; RESP 12; TEMP 35.9; O2SAT 98
--- NOTE | 2020-10-20 11:05 | PM.HEMONCPN ---
Medical Summary - Medical Summary Date of Service: 10/20/20 Chief complaint: Follow-up for: Multiple myeloma. Medical Summary: DIAGNOSIS: 1. Hypercalcemia. 2. Multiple myeloma. Interval History Interval history: Klaudia Dow is a pleasant 75 year old lady, who is here for a follow-up visit. She tells me that she was admitted to the hospital last week. She presented with abdominal pain, nausea and vomiting the week before. This worsened. She felt tired and lethargic. CT scan done in the emergency showing possible acute pancreatitis with mildly elevated pancreatic enzymes. Hospial course: Acute pancreatitis, manifested by elevated lipasse, CT finding, high calcium--thought be induced by hypercalcemia. Patient was seen by GI and managed conservatively with full recovery clinically and is tolerating diet now. Moderate Hypercalcemia-- Secondary to multiple myeloma. Treated with IVF and High dose steroid (decadron 40 IV) daily for 4 days. Constipation--due to hypercalcmeia--Treted with bowel regimen, colace, Mirilax, Senna. Pancytopenia Secondary to Multiple myeloma bone [place] biopsy done pending result. UTI: UCx Proteus. Treated with Ceftriaxone D3, switched to PO Ceftin for 7 days. Mild protein malnutrition: Low albumin 1.6. Increase in diet. Initially, she had Hypoglycemia secondary to Diabetes type 2: Discontinued Lantus 10 units, but then sugars were very high due steroids, so resumed upon discharge. DVT PPX: Lovenox was held. Previous history: She had COVID back in June 2020. She was admitted to [facility] for about 22 days. She she tells me it was complicated by pancreatitis. Further studies were negative for which immune, stone at that point. She reports that she did not feel normal since the COVID-19 infection as she ended up having G-tube for a while which was later removed. She lost some weight over the last few months by almost 40 lb. She has not felt well since then. She was admitted again 08/20/2020. Lipase was elevated. Initial CT abdomen did not show any peripancreatic inflammation. Imaging did show patchy airspace opacities bilaterally. Creatinine 1.8. O2 sat: Hypoxic. She was treated with steroids. Repeat CT did reveal acute interstitial pancreatitis. No evidence of necrosis or collection. As per revised [place] classification, with no organ failure, no local or systemic complications. Does not drink alcohol. Status post cholecystectomy. Normal triglycerides. Concern was pancreatic malignancy. Autoimmune pancreatitis was ruled out. Was noted to have splenomegaly and platelet count of 90. Concern was undiagnosed cirrhosis, compensated, and portal hypertension. Doppler study did not reveal any thrombus in the portal venous system. Hospital course was complicated by acute kidney injury which resolved with IV hydration and improved oral intake. She still does not have an appetite. She still has symptoms of nausea and vomiting all the time. It has gotten better however she still not able to swallow solids. Even the liquids are hard to tolerate and sometimes come up. She has to take Zofran. She cannot tolerate Ensure nor Glucerna. She is trying to drink smoothies with protein powder in it along with some fruit. She has lost weight. She was 267 lb and now down to 221, since July. She feels exhausted. She has been noted to have mild pancytopenia since 08/17 5. She has been noted to be hypercalcemic. Since [id number], calcium has been between 8.9 and 9.9. 07/27: Calcium 10.3. It has been fluctuating since then. Calcium level 09/30/20:11.8. Albumin: 2.3. Actual calcium: 13.6. She used to be on calcium supplements: Vitamin-D 2000 internationally units and calcium plus vitamin-D 500 daily. Stopped that a few months ago. ROS: Fatigue. No fever. No appetite. Weight loss. Occasional headache. No shortness of breath but does get chest pain. Complains of pain in the abdomen in the upper middle area. Nausea and vomiting. Heartburn. Constipation. No gross blood in the stools. Occasional diarrhea. Increased urinary frequency. Had UTI in July. Complains of pain in her right knee which she is due for a replacement. Elbows and shoulders. Takes Tylenol. Legs have become weak. She has to walk with the help of her walker/wheelchair. Feels depressed. FAMILY HISTORY: A sister had cancer of breast, colon and polycythemia. SOCIAL HISTORY: She worked at [employer]. . Has 2 children. Denies smoking. Denies alcohol. Review of Systems - Constitutional Reports system reviewed and no additional complaints, except as documented - Eyes Reports system reviewed and no additional complaints, except as documented - ENT Reports system reviewed and no additional complaints, except as documented - Cardiovascular Reports system reviewed and no additional complaints, except as documented - Respiratory Reports no additional respiratory complaints - Gastrointestinal Reports system reviewed and no additional complaints, except as documented - Genitourinary Reports no additional female genitourinary complaints - Musculoskeletal Reports system reviewed and no additional complaints, except as documented - Integumentary/Breasts Skin/Breast: Reports no additional skin complaints - Neurologic Reports system reviewed and no additional complaints, except as documented, Reports headache(s), Reports weakness - Psychiatric Reports system reviewed and no additional complaints, except as documented - Endocrine Reports no additional endocrine complaints - Hematologic/Lymphatic Reports system reviewed and no additional complaints, except as documented - Allergic/Immunologic Reports system reviewed and no additional complaints, except as documented PMFSH Medical History: Medical History (Last Reviewed 10/20/20 @ 10:57 by Donya Purvis) Diabetes mellitus type 2, controlled, without complications Essential hypertension Hypercalcemia Hyperlipidemia, unspecified Hypoglycemia unawareness associated with type 2 diabetes mellitus Obstructive sleep apnea Pancytopenia Subclinical hyperthyroidism Functional capacity: wheelchair bound Patient : No Family History: Family History (Last Reviewed 10/20/20 @ 10:57 by Donya Purvis) Father No problems noted. Mother Heart disease Brother Atrial fibrillation Brother Atrial fibrillation Brother Atrial fibrillation Surgical History: Surgical History (Last Reviewed 10/20/20 @ 10:57 by Donya Purvis) History of knee replacement History of left hip replacement Social History: Social History (Last Reviewed 10/20/20 @ 10:57 by Donya Purvis) Living Situation History: Household Members: Family Housing: House Alcohol History: Alcohol intake: never Alcohol History Details: Alcohol intake frequency: does not drink Tobacco History: Smoking Status: Never smoker Substance Use History: Use of substances other than those prescribed or required for medical reasons: No Advance Directives: Advance Directives: Yes Advance Directives on File: Yes Advance Directives Date on File: 10/09/20 Occupation Assessmet: service: No Current occupational status: retired Smoking status: Former smoker Oncology Screenings - ECOG Performance Status ECOG Performance Status: 2 Home Medications and Allergies Home Medications Medication Instructions Recorded Confirmed Type allopurinol 300 mg tablet 300 mg PO DAILY 04/22/20 10/09/20 History aspirin 81 mg chewable tablet 81 mg PO DAILY 04/22/20 10/09/20 History docusate sodium 100 mg capsule 100 mg PO BID 04/22/20 10/09/20 History insulin aspart U-100 100 unit/mL 2 - 12 unit SUBCUT TID 04/22/20 10/09/20 History (3 mL) subcutaneous pen omeprazole 20 mg capsule,delayed 20 mg PO DAILY 04/22/20 10/09/20 History release amlodipine 5 mg tablet 5 mg PO DAILY 09/30/20 10/09/20 History insulin detemir U-100 100 unit/mL 20 unit SUBCUT BEDTIME ml 09/30/20 10/09/20 History (3 mL) subcutaneous pen polyethylene glycol 3350 [Miralax] 17 g PO DAILY 10/06/20 10/09/20 History bisacodyl 1 supp DC DAILY PRN 10/09/20 10/20/20 History sennosides [senna] 8.6 mg PO BEDTIME 10/09/20 10/20/20 History tramadol 1 tab PO Q12H PRN 10/20/20 10/20/20 History Allergies Allergy/AdvReac Type Severity Reaction Status Date / Time codeine [CODEINE] Allergy Intermediate NAUSEA & Verified 10/25/20 10:17 VOMITING, vomiting lisinopril [LISINOPRIL] Allergy Intermediate COUGH, Verified 10/25/20 10:17 Coughing sulfamethoxazole Allergy Intermediate RASH Verified 10/25/20 10:17 [From BACTRIM] Exam Vital signs: Vital Signs Temp 96.7 F L 10/20/20 10:56 Pulse 86 10/20/20 10:56 Resp 12 10/20/20 10:56 BP 103/57 L 10/20/20 10:56 Pulse Ox 98 10/20/20 10:56 Weight 100.8 kg - Constitutional Present: moderate distress - Routine HEENT Exam Head: Present: normal inspection Eye: Present: normal appearance ENT: Present: mucous membranes moist - Routine Neck Exam Present: full ROM - Routine Respiratory Exam Present: CTAB - Routine Cardiovascular Exam Cardiovascular: Present: RRR, S1, S2 - Routine Abdominal Exam Present: tenderness - Routine Rectal Exam Patient deferred: digital exam - Routine Extremities Exam Present: nontender - Routine Back/Spine/Pelvis Exam Back/Spine: Present: full ROM - Routine Skin Exam Present: intact - Routine Neurological Exam Present: alert, oriented X3 - Routine Psychiatric Exam Present: normal affect Data - Labs CBC & Chem 7: 10/23/20 11:55 10/23/20 11:55 Labs: 10/06/20 12:15 0.9 % Sodium Chloride [Ns] 1,000 ml IVCONT 500 mls/hr 10/06/20 12:25 Beta-2 Microglobulin, Serum Routine Complete Blood Count Man Dif Routine Comprehensive Met. Panel Routine Erythrocyte Sedimentation Rate Routine Immunofixation Pnl, Serum Routine [place]/Lambda Lt Ch,Free w rat Routine Laboratory Last Values WBC 2.4 X10*3/uL (4.8-10.8) L 10/06/20 12:25 RBC 3.46 X10*6/uL (4.20-5.50) L 10/06/20 12:25 Hgb 10.8 g/dl (12.0-16.0) L 10/06/20 12:25 Hct 33.7 % (37-47) L 10/06/20 12:25 MCV 97.4 fL (80-98) 10/06/20 12:25 MCH 31.2 pg (27.0-33.0) 10/06/20 12:25 MCHC 32.0 g/dl (31.0-35.0) 10/06/20 12:25 RDW 15.6 % (11.0-16.0) 10/06/20 12:25 Plt Count 94 X10*3/uL (160-400) L 10/06/20 12:25 MPV 11.0 fL (9.4-12.3) 10/06/20 12:25 Absolute Nucleated RBC 0.000 X10*3/uL (0.0-0.012) 10/06/20 12:25 Nucleated RBC % (auto) 0.0 /100WBC (0.0-0.2) 10/06/20 12:25 Neutrophils % (Manual) 42 % (45-73) L 10/06/20 12:25 Band Neutrophils % 0 % (3-5) L 10/06/20 12:25 Lymphocytes % (Manual) 50 % (20-40) H 10/06/20 12:25 Atypical Lymphs % (Man) 3 % (0-6) 10/06/20 12:25 Monocytes % (Manual) 5 % (2-11) 10/06/20 12:25 Abs Neuts (Manual) 1.0 X10*3/uL (2.2-7.9) L 10/06/20 12:25 Lymphocytes # (Manual) 1.2 X10*3/uL (0.6-4.8) 10/06/20 12:25 Atyp Lymphs # (Manual) 0.1 x10*3/uL 10/06/20 12:25 Monocytes # (Manual) 0.1 X10*3/uL (0.0-1.2) 10/06/20 12:25 Platelet Estimate DECREASED (NORMAL) 10/06/20 12:25 Large Platelets PRESENT 10/06/20 12:25 Plt Morphology Comment NOTED 10/06/20 12:25 RBC Morphology NORMAL 10/06/20 12:25 ESR 18 MM/HR (0-20) 10/06/20 12:25 Sodium 136 mmol/L (135-145) 10/06/20 12:25 Potassium 3.7 mmol/L (3.3-5.1) 10/06/20 12:25 Chloride 107 mmol/L (96-108) 10/06/20 12:25 Carbon Dioxide 22 mmol/L (22-29) 10/06/20 12:25 Anion Gap 11 (12-20) L 10/06/20 12:25 BUN 12 mg/dL (9-16) 10/06/20 12:25 Creatinine 1.28 mg/dL (0.5-1.4) 10/06/20 12:25 Estim Creat Clear Calc TNP 10/06/20 12:25 Estimated GFR 41 10/06/20 12:25 Random Glucose 130 mg/dL (60-115) H D 10/06/20 12:25 Calcium 11.2 mg/dL (8.4-10.2) H 10/06/20 12:25 Total Bilirubin 0.9 mg/dL (0.0-1.0) 10/06/20 12:25 AST 22 U/L (5-31) 10/06/20 12:25 ALT 13 U/L (0-31) 10/06/20 12:25 Alkaline Phosphatase 59 U/L (39-117) 10/06/20 12:25 Total Protein 7.7 g/dL (6.5-8.0) 10/06/20 12:25 Albumin 2.1 g/dL (3.5-5.0) L 10/06/20 12:25 Yfkr-8-Ypskogbykeyyv 22.59 mg/L (< OR = 2.51) H 10/06/20 12:25 IgG Total 4482 mg/dL (600-1540) H 10/06/20 12:25 IgA Total 21 mg/dL (70-320) L 10/06/20 12:25 IgM 27 mg/dL (50-300) L 10/06/20 12:25 ASHA Interpretation SEE NOTE 10/06/20 12:25 Free [place] LC, Quant 6036.3 mg/L (3.3-19.4) H 10/06/20 12:25 Free Lambda LC, Quant 10.3 mg/L (5.7-26.3) 10/06/20 12:25 Free [place]/Lambda Ratio 586.05 (0.26-1.65) H 10/06/20 12:25 Progress Note: A/P (1) Hypercalcemia Status: Acute (2) Multiple myeloma Status: Acute Assessment and plan: DATABASE: 10/15: CBC: WBC 1.7, HGB 9, HCT 27.5, PLT 69. CMP: Lytes: WNL, glue to 79, BUN 23, AMMONIUM NITRATE NEUTRALIZER 1.08. Venkat 9.3. LFTs: 0.8/39/14. This is a pleasant 75-year-old lady with a history of her diabetes, recent COVID infection back in June, complicated by interstitial pancreatitis, now presents with hypercalcemia. She had an SIEP done back in 2018: IgG: To 637, IgA: 66, IgM: 67. IgG kappa monoclonal band present. Urine IEP: Showed free light chains. Given the clinical picture, most likely she has multiple myeloma. I proceeded with further evaluation. I rechecked SIEP: IgG 4482, IgA 21, IgM 27. IgG kappa monoclonal band present. Free light chains present. Serum free light chain ratio: 586.05. Checked beta 2 microglobulin level for prognosis. (22.2.) l checked skeletal survey on10/06: No fracture or definite bony lesion. Osteopenia versus lucency in the right medial femoral shaft just inferior to the lesser trochanter and left distal femoral shaft. Left hip and knee replacements. Degenerative changes of the spine. Bone marrow exam from 10/14: Consistent with plasma cell myeloma. Plasma cells are 60-70% of marrow cellularity. Myeloma FISH panel: Pending. PLAN: Will proceed with a PET scan for further evaluation. It has been denied. Will do appear to appear. l tried to arrange for Denosumab, for hypercalcemia and multiple myeloma. However the planned did not cover. I tried to do Peer to Peer, however the physician approved Zometa. Her dose comes to 3.5 mg. Will arrange for it later in the week. Will arrange for RVD based regimen. There are other regimens recommended including daratumumab/lenalidomide and Decadron. And carfilzomib/Lenalidomide and Decadron. However, this is the only regimen shown to have overall survival benefit, at this point. Will obtain prior authorization and get started, after the PET scan. The plan from the discharge summary from [facility] revealed that she was supposed to have been endoscopic ultrasound for further evaluation, to assess for malignancy, in few weeks. I discussed this with the GI fellow. Dr. Marques's office is going to arrange for that. Thanks, CC: Dr. Cowart. Dr. Dr. Givens. Dr. Soliman. - Time Spent With Patient Total time spent is greater than 50% in coordination of care (as documented) at patient's floor/unit and/or counseling patient: 25 - 35 minutes
--- NOTE | 2020-10-20 11:42 | HO.HEMONCPA ---
Zometa does not require PA per Jen langford [facility]. Ref#[id number]
--- NOTE | 2020-10-20 12:16 | MHC.HEMONCMA ---
Pt present to f/u on hypercalcemia. History reviewed, no labs drawn today. Dr Raman requested PET scan last month but was denied by insurance. Norma will re-submit.
--- NOTE | 2020-10-20 14:06 | HO.HEMONCPA ---
[employer] request for PET Scan resubmitted per Dr Raman's request. Clinical notes and pathology report faxed over to clinical department of [facility]
--- NOTE | 2020-10-21 09:24 | HO.HEMONCPA ---
[employer] request for Revlimid has been APPROVED. Auth#[id number] for 10/21/2020-04/22/2021. Will scan letter into chart upon its arrival
--- NOTE | 2020-10-21 10:09 | HO.HEMONCPA ---
PA request for Velcade in clinical review per Suzy at [facility]. Case#[id number]. Faxed clinical notes over to them. Awaiting decision.
--- NOTE | 2020-10-22 10:33 | HO.HEMONCPA ---
PA request for Velcade has been APPROVED. Auth#[id number] from 10/21/2020-04/18/2021. Letting DANIEL Samuel know
[2020-10-23 11:33] VITALS: BP 111/55; PULSE 82; RESP 18; TEMP 36.8; O2SAT 98; BMI 38.2
[2020-10-23 12:04] LABS: Eosinophils Percent Auto 1.2 % (0-4); Hemoglobin 9.1 g/dl (12.0-16.0); Lymphocytes Absolute Auto 0.9 X10*3/uL (1.2-4.9); MANUAL DIFF FLAG SCAN; Mean Corpuscular HGB Conc 32.5 g/dl (31.0-35.0); Mean Corpuscular Hemoglobin 31.7 pg (27.0-33.0); Mean Corpuscular Volume 97.6 fL (80-98); Mean Platelet Volume 10.2 fL (9.4-12.3); Monocytes Absolute Auto 0.1 X10*3/uL (0.1-1.2); Monocytes Percent Auto 6.5 % (2-11); Neutrophils Absolute Auto 0.7 X10*3/uL (2.0-8.3); Neutrophils Percent Auto 42.3 % (45-73); Red Blood Count 2.87 X10*6/uL (4.20-5.50); Red Cell Distribution Width 17.4 % (11.0-16.0); SCAN SMEAR FLAG 1
[2020-10-23 12:05] LABS: Platelet Count 78 X10*3/uL (160-400); White Blood Count 1.7 X10*3/uL (4.8-10.8)
[2020-10-23 12:26] LABS: SLIDE REVIEW VERIFIED
[2020-10-23 12:38] LABS: Alanine Aminotransferase 33 U/L (0-31); Alkaline Phosphatase 43 U/L (39-117); Anion Gap 12 (12-20); Aspartate Amino Transferase 17 U/L (5-31); Bilirubin Total 0.5 mg/dL (0.0-1.0); Blood Urea Nitrogen 14 mg/dL (9-16); Calcium 8.2 mg/dL (8.4-10.2); Carbon Dioxide 20 mmol/L (22-29); Chloride 109 mmol/L (96-108); Creatinine Clr Calc Pharmacy 65.7; Estimated Glomerular Filt Rate > 60; Glucose Random 207 mg/dL (60-115); Potassium 2.6 mmol/L (3.3-5.1); Sodium 138 mmol/L (135-145); Total Protein 5.9 g/dL (6.5-8.0)
--- NOTE | 2020-10-23 14:22 | MHC.HEMONC ---
Pt here for zometa IV. Labs drawn. IV started by SSS. IV in right antecubital. IV asymptomatic. Infusion completed and IV flushed with NS flush. IV removed. Follow-up given.
--- NOTE | 2020-10-23 14:52 | MHC.HEMONCSW ---
PATIENT IS A 75 YEAR OLD RETIRED FEMALE. RESIDES WITH FAMILY AND IS INDEPENDENT. 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 SHE IS ACCOMPANIED BY DAUGHTER MARIUSZ AND HEALTH CARE PROXY IS COMPLETED. PATIENT REPORTS COPING WELL WITH EXCEPTION F DEALING WITH HER INSURANCE COMPANY....THEY ARE HESITANT TO AUTHORIZE THINGS. DIAGNOSIS IS MULTIPLE MYELOMA, TO BEGIN CHEMOTHERAPY. REASSURANCE, GUIDANCE, EDUCATION AND SUPPORT IS PROVIDED. DOES NOT FEEL COUNSELING REFERRAL IS NEEDED. SHE IS AWARE OF MY AVAILABILITY.
--- NOTE | 2020-10-23 15:57 | MHC.HEMONC ---
Pt here for Zometa accompanied by her dtr. She was educated by me re: plan for RVD. She did survey for Revlimid which will be provided by [facility]. She will also receive Velcade s.c. here and Dexamethasone. I reviewed common side effects of all drugs and gave her written information on them. She signed consent and we will call with schedule once PA obtained and Revlimid is delivered.
--- NOTE | 2020-10-23 16:02 | MHC.HEMONC ---
Port insertion order given to Tube Bender Hand to book.
[2020-10-24 13:51] LABS: Immunoglobulin G 2933 mg/dL (600-1540)
--- NOTE | 2020-10-28 10:49 | MHC.HEMONCMA ---
Patient called, she states that was given a medicine for her UTI and that it is making her sick, making her stomach upset and making her pee alot. She is wondering if she could have Dr Raman switch it to something else. She is currently on Cefuroxime 250mg 1 tab BID. I told her that Dr Raman is off today and that I will send her a message but she most likely will not get an answer until tomorrow. I also told her that her port placement is this Monday10/30/2020 at 8:30am. She states she has not been taking her aspirin, which is perfect..
--- NOTE | 2020-11-03 09:46 | HO.HEMONCPA ---
Request for CPT code 73358 was denied, let Dr Raman know. She requested Peer to Peer. Scheduled peer to peer for 11/05/2020 @[facility]
--- NOTE | 2020-11-05 14:21 | HO.HEMONCPA ---
Dr Raman adv that outcome of peer to peer was that CPT code 23428 has been approved. Auth#[id number]. Let Ebony Naqvi know to schedule.
--- NOTE | 2020-11-09 14:54 | MHC.HEMONCSW ---
PET PA APPEAL AGAIN DENIED BY [facility]. INFORMED DR. PRITCHETT.
--- NOTE | 2020-11-09 14:57 | HO.HEMONCPA ---
PET PA DENIED BY [facility]. INFORMED DR. PRITCHETT.
[2020-11-10 11:07] VITALS: BP 109/70; PULSE 96; RESP 18; TEMP 36.2; O2SAT 99; BMI 39.2
[2020-11-10 11:48] LABS: Basophils Percent Auto 1.4 % (0-2); Eosinophils Percent Auto 0.7 % (0-4); Hematocrit 28.9 % (37-47); Hemoglobin 9.4 g/dl (12.0-16.0); Imm Gran Abs Auto 0.02 X10*3/uL (0.00-0.03); Imm Gran Pct Auto 1.4 % (0.0-0.4); Lymphocytes Absolute Auto 0.7 X10*3/uL (1.2-4.9); Lymphocytes Percent Auto 49.3 % (20-40); MANUAL DIFF FLAG SCAN; Mean Corpuscular HGB Conc 32.5 g/dl (31.0-35.0); Mean Corpuscular Hemoglobin 31.8 pg (27.0-33.0); Mean Corpuscular Volume 97.6 fL (80-98); Mean Platelet Volume 10.2 fL (9.4-12.3); Monocytes Absolute Auto 0.2 X10*3/uL (0.1-1.2); Monocytes Percent Auto 10.3 % (2-11); Neutrophils Absolute Auto 0.5 X10*3/uL (2.0-8.3); Neutrophils Percent Auto 36.9 % (45-73); Red Blood Count 2.96 X10*6/uL (4.20-5.50); Red Cell Distribution Width 17.9 % (11.0-16.0); SCAN SMEAR FLAG 1
[2020-11-10 11:49] LABS: Platelet Count 56 X10*3/uL (160-400); White Blood Count 1.5 X10*3/uL (4.8-10.8)
[2020-11-10 12:18] LABS: Alanine Aminotransferase 18 U/L (0-31); Albumin Level 1.5 g/dL (3.5-5.0); Alkaline Phosphatase 49 U/L (39-117); Anion Gap 9 (12-20); Aspartate Amino Transferase 26 U/L (5-31); Bilirubin Total 0.5 mg/dL (0.0-1.0); Blood Urea Nitrogen 10 mg/dL (9-16); Calcium 7.6 mg/dL (8.4-10.2); Carbon Dioxide 19 mmol/L (22-29); Chloride 113 mmol/L (96-108); Creatinine Clr Calc Pharmacy 72.3; Estimated Glomerular Filt Rate > 60; Glucose Random 181 mg/dL (60-115); Sodium 138 mmol/L (135-145); Total Protein 6.5 g/dL (6.5-8.0)
--- NOTE | 2020-11-10 12:28 | HE.PHANOTE ---
Addendum entered by Serge Menjivar, [facility] 11/10/20 12:39: CORRECTION: VELCADE SHOULD NOT BE INITIATED FOR PLTs <70; THIS IS PATIENTS FIRST TREATMENT Original Note: PATIENT'S PLATELET LEVEL IS 56 TODAY; PER UPTODATE VELCADE SHOULD BE HELD GOT PLT <70; SPOKE TO DR PRITCHETT AND SHE WOULD LIKE PATIENT TREATED TODAY DUE TO ADVANCED MYELOMA.
[2020-11-10 12:30] LABS: SLIDE REVIEW VERIFIED
[2020-11-10] MEDS: ondansetron HCL/NS 16 MG/50 ML PIGGYBACK 200 MG IV (12:38)
--- NOTE | 2020-11-10 13:19 | MHC.HEMONCMA ---
Pt scheduled for U/S of right upper extremity today. DANIEL Samuel notified.
[2020-11-10] MEDS: Heparin Sodium,Porcine Flush 500 UNIT/5 ML SYRINGE IVFLUSH (13:56)
[2020-11-10] MEDS: Potassium Chloride ER 20 MEQ TAB.ER.PRT PO (14:00)
--- NOTE | 2020-11-10 15:06 | MHC.HEMONC ---
pt here for c1d1 RVD following inpatient stay for n/v. She was d/c yesterday. She continues with poor appetite, minimal po and n/v. She has held down small amts soup and anne marie hilton. She wants to try the chemo regimen in hopes she will feel better. Labs reviewed and not WNL but Dr Raman and she discussed this and she wants treatment. She was given pre-med with IV zofran and IV dex. She john Revlimid and antibiotic. Will take Acyclovir after evening meal. She john potassium pill for K+ 3.0. She went for u/s of right upper arm where there is localized pain and swelling (she has generalized body edema). She will call tomorrow if she needs to come in for IV.
--- NOTE | 2020-11-10 15:09 | MHC.HEMONCSW ---
MET WITH PATIENT WHO IS SEEN AFTER A LENGHTY HOSPITALIZATION. REPORTS COPING WELL, WANTS TO BEGIN TREATMENT. GOOD SUPPORT SYSTEM, 2 DAUGHTERS AND ONE SON. 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 N/V ISSUE, ATTEMPTING TO KEEP DOWN FOOD..DOES NOT LIKE ENSURES. DAUGHTER TRANSPORTS HER TO APPOINTMENTS. INSURANCE IS [employer] [facility] [place] MED[facility]...MEDICARE PART A ONLY...DOES NOT WANT TO CHANGE THIS AT THIS TIME. REASSURANCE, EDUCATION AND SUPPORT PROVIDED. DOES NOT WANT A COUNSELING REFERRAL.
--- NOTE | 2020-11-10 16:31 | P.PNHO_ITS ---
Medical Summary - Medical Summary Date of Service: 11/10/20 Chief complaint: Follow-up for: Multiple myeloma. Medical Summary: DIAGNOSIS: 1. Hypercalcemia. 2. Multiple myeloma. CURRENT THERAPY: Here to start RVD. Interval History Interval history: Klaudia Dow is a pleasant 75 year old lady, who is here for a follow-up visit. She tells me that she was admitted to the hospital last week. She just got discharged yesterday. She presented with abdominal pain, nausea and vomiting the week before. This worsened. She felt tired and lethargic. CT scan of the abdomen pelvis revealed:: * Findings compatible with acute uncomplicated edematous pancreatitis, similar in appearance to prior. * Diffuse hepatic steatosis. Mild anasarca. * Pancolonic diverticulosis without evidence of diverticulitis. * Mild splenomegaly. Hospital course: Hospital course: Patient was admitted with intractable nausea and vomitting likely related to pancreatitis. Other than that, work up w as essentially unremarkable. Her electrolytes have been unremarkable. She was treated with antiemtics, hydration and slowly her diet was advanced and is tolerating regular diet now. She will be discharge with Zofran, reglan PRN and is planned to have chemotherapy 11/10. This may cause additional symptoms in the shourt term but ultimately will help in the long run. CT scan of the right femur revealed: No fracture. No bone destruction. No focal bone lesion. No abnormal periosteal reaction. 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 Small joint effusion with suprapatellar fossa the right knee. Mild degenerative change of the right hip with joint narrowing. No soft tissue mass or focal abnormality. Previous history: She had COVID back in June 2020. She was admitted to [facility] for about 22 days. She she tells me it was complicated by pancreatitis. Further studies were negative for which immune, stone at that point. She reports that she did not feel normal since the COVID-19 infection as she ended up having G-tube for a while which was later removed. She lost some weight over the last few months by almost 40 lb. She has not felt well since then. She was admitted again 08/20/2020. Lipase was elevated. Initial CT abdomen did not show any peripancreatic inflammation. Imaging did show patchy airspace opacities bilaterally. Creatinine 1.8. O2 sat: Hypoxic. She was treated with steroids. Repeat CT did reveal acute interstitial pancreatitis. No evidence of necrosis or collection. As per revised Jayla classification, with no organ failure, no local or systemic complications. Does not drink alcohol. Status post cholecystectomy. Normal triglycerides. Concern was pancreatic malignancy. Autoimmune pancreatitis was ruled out. Was noted to have splenomegaly and platelet count of 90. Concern was undiagnosed cirrhosis, compensated, and portal hypertension. Doppler study did not reveal any thrombus in the portal venous system. Hospital course was complicated by acute kidney injury which resolved with IV hydration and improved oral intake. She still does not have an appetite. She still has symptoms of nausea and vomiting all the time. It has gotten better however she still not able to swallow solids. Even the liquids are hard to tolerate and sometimes come up. She has to take Zofran. She cannot tolerate Ensure nor Glucerna. She is trying to drink smoothies with protein powder in it along with some fruit. She has lost weight. She was 267 lb and now down to 221, since July. She feels exhausted. She has been noted to have mild pancytopenia since 08/17 5. She has been noted to be hypercalcemic. Since [id number], calcium has been between 8.9 and 9.9. 07/27: Calcium 10.3. It has been fluctuating since then. Calcium level 09/30/20:11.8. Albumin: 2.3. Actual calcium: 13.6. She used to be on calcium supplements: Vitamin-D 2000 internationally units and calcium plus vitamin-D 500 daily. Stopped that a few months ago. CT scan done in the emergency showing possible acute pancreatitis with mildly elevated pancreatic enzymes. Hospial course: Acute pancreatitis, manifested by elevated lipasse, CT finding, high calcium--thought be induced by hypercalcemia. Patient was seen by GI and managed conservatively with full recovery clinically and is tolerating diet now. Moderate Hypercalcemia-- Secondary to multiple myeloma. Treated with IVF and High dose steroid (decadron 40 IV) daily for 4 days. Constipation--due to hypercalcmeia--Treted with bowel regimen, colace, Mirilax, Senna. Pancytopenia Secondary to Multiple myeloma bone [place] biopsy done pending result. UTI: UCx Proteus. Treated with Ceftriaxone D3, switched to PO Ceftin for 7 days. Mild protein malnutrition: Low albumin 1.6. Increase in diet. Initially, she had Hypoglycemia secondary to Diabetes type 2: Discontinued Lantus 10 units, but then sugars were very high due steroids, so resumed upon discharge. DVT PPX: Lovenox was held. ROS: Fatigue. No fever. No appetite. Weight loss. Occasional headache. No shortness of breath but does get chest pain. Complains of pain in the abdomen in the upper middle area. Nausea and vomiting. Heartburn. Constipation. No gross blood in the stools. Occasional diarrhea. Increased urinary frequency. Had UTI in July. Complains of pain in her right knee which she is due for a replacement. Elbows and shoulders. Takes Tylenol. Legs have become weak. She has to walk with the help of her walker/wheelchair. Feels depressed. FAMILY HISTORY: A sister had cancer of breast, colon and polycythemia. SOCIAL HISTORY: She worked at [employer]. . Has 2 children. Denies smoking. Denies alcohol. Review of Systems - Neurologic Reports system reviewed and no additional complaints, except as documented, Reports headache(s), Reports weakness PMFSH Medical History: Medical History (Last Reviewed 11/04/20 @ 06:06 by Dirk Rich MD) Diabetes mellitus type 2, controlled, without complications Essential hypertension Hypercalcemia Hyperlipidemia, unspecified Hypoglycemia unawareness associated with type 2 diabetes mellitus Obstructive sleep apnea Pancytopenia Subclinical hyperthyroidism Functional capacity: wheelchair bound Family History: Family History (Last Reviewed 11/04/20 @ 06:06 by Dirk Rich MD) Father No problems noted. Mother Heart disease Brother Atrial fibrillation Brother Atrial fibrillation Brother Atrial fibrillation Surgical History: Surgical History (Last Reviewed 11/04/20 @ 06:06 by Dirk Rich MD) History of knee replacement History of left hip replacement Social History: Social History (Last Reviewed 11/04/20 @ 06:06 by Dirk Rich MD) Living Situation History: Household Members: Family Household Members Other:: 3 Housing: House Alcohol History: Alcohol intake: never Alcohol History Details: Alcohol intake frequency: does not drink Advance Directives: Advance Directives Date on File: 10/09/20 Occupation Assessmet: service: No Current occupational status: retired Smoking status: Former smoker Home Medications and Allergies Current Medications: Current Medications Generic Name Dose Route Start Last Admin Trade Name Freq PRN Reason Stop Dose Admin Dexamethasone 20 mg 11/10/20 00:00 Dexamethasone 4 Mg Tablet PO 11/10/20 23:59 ONCE DONAVAN Heparin Sodium (Porcine) 500 unit 11/10/20 00:00 11/10/20 13:56 Heparin Sodium,Porcine Flush 500 Unit/5 Ml Syringe IVFLUSH 11/10/20 23:59 500 unit ONCE DONAVAN Administration Ondansetron HCl 16 mg in 50 mls @ 200 mls/hr 11/10/20 12:30 11/10/20 12:53 Zofran IV Infused ONCE DONAVAN Infusion Bortezomib 2.9 mg/ IV 1.16 mls @ 0 mls/hr 11/10/20 00:00 11/10/20 13:38 Miscellaneous Supplies SUBCUT 11/10/20 23:59 1 mls/hr ONCE DONAVAN Administration As Directed Ondansetron HCl 8 mg 11/10/20 00:00 Ondansetron Odt 8 Mg Tab.Rapdis TRANSLINGU 11/10/20 23:59 ONCE REPLACED BY [facility] Home Medications Medication Instructions Recorded Confirmed Type aspirin 81 mg chewable tablet 81 mg PO DAILY 04/22/20 11/03/20 History docusate sodium 100 mg capsule 100 mg PO BID 04/22/20 11/03/20 History insulin aspart U-100 100 unit/mL 2 - 12 unit SUBCUT TID 04/22/20 11/03/20 History (3 mL) subcutaneous pen omeprazole 20 mg capsule,delayed 20 mg PO DAILY 04/22/20 11/03/20 History release insulin detemir U-100 100 unit/mL 20 unit SUBCUT BEDTIME ml 09/30/20 11/03/20 History (3 mL) subcutaneous pen polyethylene glycol 3350 [Miralax] 17 g PO DAILY PRN 10/06/20 11/03/20 History bisacodyl 1 supp MD DAILY PRN 10/09/20 11/03/20 History sennosides [senna] 8.6 mg PO BEDTIME PRN 10/09/20 11/03/20 History tramadol 1 tab PO Q12H PRN 10/20/20 11/03/20 History furosemide 20 mg tablet 20 mg PO DAILY 10/29/20 11/10/20 History Allergies Allergy/AdvReac Type Severity Reaction Status Date / Time codeine [CODEINE] Allergy Intermediate NAUSEA & Verified 10/25/20 10:17 VOMITING, vomiting lisinopril [LISINOPRIL] Allergy Intermediate COUGH, Verified 10/25/20 10:17 Coughing sulfamethoxazole Allergy Intermediate RASH Verified 10/25/20 10:17 [From BACTRIM] Exam Vital signs: Vital Signs Temp 97.2 F 11/10/20 11:07 Pulse 96 11/10/20 11:07 Resp 18 11/10/20 11:07 BP 109/70 11/10/20 11:07 Pulse Ox 99 11/10/20 11:07 Intake & Output 11/09/20 11/10/20 11/10/20 18:59 06:59 18:59 Intake Total 102 / 102 Balance 102 / 102 Intake: Intake, IV Amount 102 / 102 dexAMETHasone sod phosphate/PF 52 / 52 20 mg In 0.9 % Sodium Chloride 50 ml @ 208 mls/hr IV ONCE ONE Rx#:[id number] ondansetron HCL/NS 16 mg In 50 50 / 50 ml @ 200 mls/hr IV ONCE DONAVAN Rx# :[id number] Other: Weight 107.1 kg Standard Weight in Grams 086162 Weight 107.1 kg Body Mass Index 39.2 - Constitutional Present: moderate distress - Routine HEENT Exam Head: Present: normal inspection - Routine Neck Exam Present: full ROM - Routine Respiratory Exam Present: CTAB - Routine Cardiovascular Exam Cardiovascular: Present: RRR, S1, S2 - Routine Abdominal Exam Present: tenderness - Routine Rectal Exam Patient deferred: digital exam - Routine Extremities Exam Present: nontender - Routine Back/Spine/Pelvis Exam Back/Spine: Present: full ROM - Routine Skin Exam Present: intact - Routine Neurological Exam Present: alert, oriented X3 - Routine Psychiatric Exam Present: normal affect Data - Labs CBC & Chem 7: 11/10/20 11:30 11/10/20 11:30 Labs: 10/06/20 12:15 0.9 % Sodium Chloride [Ns] 1,000 ml IVCONT 500 mls/hr 10/06/20 12:25 Beta-2 Microglobulin, Serum Routine Complete Blood Count Man [facility] Routine Comprehensive Met. Panel Routine Erythrocyte Sedimentation Rate Routine Immunofixation Pnl, Serum Routine Holly/Lambda Lt Ch,Free w rat Routine Laboratory Last Values WBC 2.4 X10*3/uL (4.8-10.8) L 10/06/20 12:25 RBC 3.46 X10*6/uL (4.20-5.50) L 10/06/20 12:25 Hgb 10.8 g/dl (12.0-16.0) L 10/06/20 12:25 Hct 33.7 % (37-47) L 10/06/20 12:25 MCV 97.4 fL (80-98) 10/06/20 12: MCH 31.2 pg (27.0-33.0) 10/06/20 12: MCHC 32.0 g/dl (31.0-35.0) 10/06/20 12: RDW 15.6 % (11.0-16.0) 10/06/20: Plt Count 94 X10*3/uL (160-400) L 10/06/20 12: MPV 11.0 fL (9.4-12.3) 10/06/20 12: Absolute Nucleated RBC 0.000 X10*3/uL (0.0-0.012) 10/06/20 12: Nucleated RBC % (auto) 0.0 /100WBC (0.0-0.2) 10/06/20 12: Neutrophils % (Manual) 42 % (45-73) L 10/06/20 12: Band Neutrophils % 0 % (3-5) L 10/06/20 12:25 Lymphocytes % (Manual) 50 % (20-40) H 10/06/20 12:25 Atypical Lymphs % (Man) 3 % (0-6) 10/06/20 12: Monocytes % (Manual) 5 % (2-11) 10/06/20 12:25 Abs Neuts (Manual) 1.0 X10*3/uL (2.2-7.9) L 10/06/20 12: Lymphocytes # (Manual) 1.2 X10*3/uL (0.6-4.8) 10/06/20 12:25 Atyp Lymphs # (Manual) 0.1 x10*3/uL 10/06/20 12:25 Monocytes # (Manual) 0.1 X10*3/uL (0.0-1.2) 10/06/20 12:25 Platelet Estimate DECREASED (NORMAL) 10/06/20 12:25 Large Platelets PRESENT 10/06/20 12:25 Plt Morphology Comment NOTED 10/06/20 12:25 RBC Morphology NORMAL 10/06/20 12:25 ESR 18 MM/HR (0-20) 10/06/20 12:25 Sodium 136 mmol/L (135-145) 10/06/20 12:25 Potassium 3.7 mmol/L (3.3-5.1) 10/06/20 12:25 Chloride 107 mmol/L (96-108) 10/06/20 12:25 Carbon Dioxide 22 mmol/L (22-29) 10/06/20 12:25 Anion Gap 11 (12-20) L 10/06/20 12:25 BUN 12 mg/dL (9-16) 10/06/20 12:25 Creatinine 1.28 mg/dL (0.5-1.4) 10/06/20 12:25 Estim Creat Clear Calc TNP 10/06/20 12:25 Estimated GFR 41 10/06/20 12:25 Random Glucose 130 mg/dL (60-115) H D 10/06/20 12:25 Calcium 11.2 mg/dL (8.4-10.2) H 10/06/20 12:25 Total Bilirubin 0.9 mg/dL (0.0-1.0) 10/06/20 12:25 AST 22 U/L (5-31) 10/06/20 12:25 ALT 13 U/L (0-31) 10/06/20 12:25 Alkaline Phosphatase 59 U/L (39-117) 10/06/20 12:25 Total Protein 7.7 g/dL (6.5-8.0) 10/06/20 12:25 Albumin 2.1 g/dL (3.5-5.0) L 10/06/20 12:25 Ejuw-3-[id number] 22.59 mg/L (< OR = 2.51) H 10/06/20 12:25 IgG Total 4482 mg/dL (600-1540) H 10/06/20 12:25 IgA Total 21 mg/dL (70-320) L 10/06/20 12:25 IgM 27 mg/dL (50-300) L 10/06/20 12:25 ASHA Interpretation SEE NOTE 10/06/20 12:25 Free Holly LC, Quant 6036.3 mg/L (3.3-19.4) H 10/06/20 12:25 Free Lambda LC, Quant 10.3 mg/L (5.7-26.3) 10/06/20 12:25 Free Holly/Lambda Ratio 586.05 (0.26-1.65) H 10/06/20 12:25 Progress Note: A/P (1) Hypercalcemia Status: Acute (2) Multiple myeloma Status: Acute Assessment and plan: DATABASE: 10/15: CBC: WBC 1.7, HGB 9, HCT 27.5, PLT 69. CMP: Lytes: WNL, glue to 79, BUN 23, AUDIO VISUAL [employer] DIRECTOR 1.08. Venkat 9.3. LFTs: 0.8/39/. This is a pleasant 75-year-old lady with a history of her diabetes, recent COVID infection back in June, complicated by interstitial pancreatitis, now presents with hypercalcemia. She had an SIEP done back in 2018: IgG: To 637, IgA: 66, IgM: 67. IgG kappa monoclonal band present. Urine IEP: Showed free light chains. Given the clinical picture, most likely she has multiple myeloma. I proceeded with further evaluation. I rechecked SIEP: IgG 4482, IgA 21, IgM 27. IgG kappa monoclonal band present. Free light chains present. Serum free light chain ratio: 586.05. Checked beta 2 microglobulin level for prognosis. (22.2.) l checked skeletal survey on10/06: No fracture or definite bony lesion. Osteopenia versus lucency in the right medial femoral shaft just inferior to the lesser trochanter and left distal femoral shaft. Left hip and knee replacements. Degenerative changes of the spine. Bone marrow exam from 10/14: Consistent with plasma cell myeloma. Plasma cells are 60-70% of marrow cellularity. Myeloma FISH panel: Pending. l tried to proceed with a PET scan for further evaluation. It has been denied. Will do appear to appear. l tried to arrange for Denosumab, for hypercalcemia and multiple myeloma. However the planned did not cover. I tried to do Peer to Peer, however the physician approved Zometa.Her dose comes to 3.5 mg. Will arrange for it later in the week. CT scan of the right femur revealed: No fracture. No bone destruction. No focal bone lesion. No abnormal periosteal reaction. 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 Small joint effusion with suprapatellar fossa the right knee. Mild degenerative change of the right hip with joint narrowing. No soft tissue mass or focal abnormality. l arranged for RVD based regimen. She is here to get started. There are other regimens recommended including daratumumab/lenalidomide and Decadron. And carfilzomib/Lenalidomide and Decadron. However, this is the only regimen shown to have overall survival benefit, at this point. She complains of tenderness and swelling right upper extremity, medially around the elbow area. She has generalized anasarca. She still has nausea, has not been able to keep much down. PLAN: She was 1st given IV Zofran, to settle the nausea. The Decadron 20 mg was given IV as well. Rest of the p.o. meds: Revlimid, Mepron, and Valtrex were given orally. She was able to tolerate it. Ultrasound of the right upper extremity revealed: There is occlusive thrombus in the distal basilic vein. She was advised to use warm compresses on it. The plan from the discharge summary from [facility] revealed that she was supposed to have been endoscopic ultrasound for further evaluation, to assess for malignancy, in few weeks. I have set up an appoinment with Dr. Marques's office to arrange for endoscopin ultrasound. Thanks, CC: Dr. Cowart. Dr. Dr. Givens. Dr. Soliman. - Time Spent With Patient Total time spent is greater than 50% in coordination of care (as documented) at patient's floor/unit and/or counseling patient: 25 - 35 minutes
[2020-11-17 10:54] VITALS: BMI 38.0
[2020-11-17] MEDS: Heparin Sodium,Porcine Flush 500 UNIT/5 ML SYRINGE IVFLUSH (11:28)
[2020-11-17] MEDS: ondansetron HCL/NS 16 MG/50 ML PIGGYBACK 200 MG IV (11:28)
[2020-11-17 11:29] LABS: Basophils Percent Auto 0.9 % (0-2); Eosinophils Percent Auto 0.9 % (0-4); Hematocrit 26.1 % (37-47); Hemoglobin 8.6 g/dl (12.0-16.0); Imm Gran Abs Auto 0.01 X10*3/uL (0.00-0.03); Imm Gran Pct Auto 0.5 % (0.0-0.4); Lymphocytes Absolute Auto 0.8 X10*3/uL (1.2-4.9); Lymphocytes Percent Auto 38.2 % (20-40); MANUAL DIFF FLAG SCAN; Mean Corpuscular Hemoglobin 31.6 pg (27.0-33.0); Mean Platelet Volume 12.3 fL (9.4-12.3); Monocytes Absolute Auto 0.1 X10*3/uL (0.1-1.2); Monocytes Percent Auto 2.3 % (2-11); Neutrophils Absolute Auto 1.2 X10*3/uL (2.0-8.3); Neutrophils Percent Auto 57.2 % (45-73); Red Blood Count 2.72 X10*6/uL (4.20-5.50); Red Cell Distribution Width 18.1 % (11.0-16.0); SCAN SMEAR FLAG 1
[2020-11-17] MEDS: 0.9 % Sodium Chloride 1,000 ML 500 ML IVCONT (11:29)
[2020-11-17 11:30] VITALS: BP 107/59; PULSE 78; RESP 18; TEMP 36.1; O2SAT 99
[2020-11-17 11:39] LABS: Platelet Count 56 X10*3/uL (160-400); White Blood Count 2.2 X10*3/uL (4.8-10.8)
[2020-11-17 12:16] LABS: Alanine Aminotransferase 19 U/L (0-31); Albumin Level 1.4 g/dL (3.5-5.0); Alkaline Phosphatase 49 U/L (39-117); Anion Gap 7 (12-20); Aspartate Amino Transferase 26 U/L (5-31); Blood Urea Nitrogen 7 mg/dL (9-16); Calcium 6.6 mg/dL (8.4-10.2); Carbon Dioxide 25 mmol/L (22-29); Chloride 110 mmol/L (96-108); Creatinine Clr Calc Pharmacy 85.3; Estimated Glomerular Filt Rate > 60; Glucose Random 90 mg/dL (60-115); Potassium 3.1 mmol/L (3.3-5.1); Sodium 139 mmol/L (135-145); Total Protein 6.1 g/dL (6.5-8.0)
--- NOTE | 2020-11-17 13:02 | MHC.HEMONC ---
pt recieve subcub velcade ok for IV pre med due to n/v. pt report continued n/v at home IVF also given today. esthela working on appt at [facility] for upper endo
[2020-11-18 11:02] VITALS: BP 106/62; PULSE 86; RESP 18; TEMP 36.8; O2SAT 95; BMI 38.0
[2020-11-18] MEDS: ondansetron HCL 4 MG/2 ML VIAL IVPUSH (11:13)
[2020-11-18] MEDS: dexAMETHasone sod phosphate/NS 12 MG/50 ML PIGGYBACK 200 MG IV (11:14)
[2020-11-18] MEDS: 0.9 % Sodium Chloride 500 ML IV (11:50)
--- NOTE | 2020-11-19 15:22 | MHC.HEMONC ---
[employer] Auth #[id number]- Called [employer] [facility] with new auth # as requested.
--- NOTE | 2020-11-23 09:21 | MHC.HEMONC ---
pt dtr called with concern re: her mother. She is not john po intake, urinating less and urine is concentrated. She is still vomiting intermittently. She is weak and not out of bed a lot. I spoke with Dr Raman. Plan is to have her come in tomorrow for labs and velcade. She may need to be admitted after that. She currently has VNA but may need more support. Will address tomorrow. Daughter will call if anything changes and bring to ER today if needed. She will follow up with me later.
[2020-11-24 09:52] VITALS: BP 100/53; PULSE 78; RESP 18; TEMP 36.2; O2SAT 99
[2020-11-24] MEDS: ondansetron HCL/NS 16 MG/50 ML PIGGYBACK 200 MG IV (10:42)
[2020-11-24 11:34] LABS: Basophils Percent Auto 0.8 % (0-2); Eosinophils Percent Auto 1.7 % (0-4); Hematocrit 25.5 % (37-47); Hemoglobin 8.5 g/dl (12.0-16.0); Imm Gran Abs Auto 0.01 X10*3/uL (0.00-0.03); Imm Gran Pct Auto 0.8 % (0.0-0.4); Lymphocytes Absolute Auto 0.5 X10*3/uL (1.2-4.9); Lymphocytes Percent Auto 40.8 % (20-40); MANUAL DIFF FLAG SCAN; Mean Corpuscular HGB Conc 33.3 g/dl (31.0-35.0); Mean Corpuscular Volume 98.1 fL (80-98); Mean Platelet Volume 14.4 fL (9.4-12.3); Monocytes Absolute Auto 0.1 X10*3/uL (0.1-1.2); Neutrophils Absolute Auto 0.6 X10*3/uL (2.0-8.3); Neutrophils Percent Auto 45.9 % (45-73); Red Cell Distribution Width 18.6 % (11.0-16.0); SCAN SMEAR FLAG 1
[2020-11-24 11:39] LABS: Platelet Count 64 X10*3/uL (160-400); White Blood Count 1.2 X10*3/uL (4.8-10.8)
[2020-11-24 11:40] LABS: Mean Corpuscular Hemoglobin 32.7 pg (27.0-33.0)
[2020-11-24 12:14] LABS: SLIDE REVIEW VERIFIED
[2020-11-24 12:58] LABS: Alanine Aminotransferase 26 U/L (0-31); Albumin Level 1.7 g/dL (3.5-5.0); Alkaline Phosphatase 51 U/L (39-117); Anion Gap 10 (12-20); Aspartate Amino Transferase 23 U/L (5-31); Bilirubin Total 1.8 mg/dL (0.0-1.0); Blood Urea Nitrogen 7 mg/dL (9-16); Calcium 6.8 mg/dL (8.4-10.2); Carbon Dioxide 28 mmol/L (22-29); Chloride 104 mmol/L (96-108); Creatinine Clr Calc Pharmacy 80.7; Estimated Glomerular Filt Rate > 60; Glucose Random 126 mg/dL (60-115); Potassium 2.7 mmol/L (3.3-5.1); Sodium 139 mmol/L (135-145); Total Protein 5.7 g/dL (6.5-8.0)
--- NOTE | 2020-11-24 13:12 | HE.PHANOTE ---
PATIENT'S TOTAL BILIRUBIN CAME BACK 1.8 TODAY. RECOMMENDATION IS TO REDUCE VELCADE DOSE TO 0.7 MG/M2. DISCUSSED W/ DR PRITCHETT AND SHE IS OK WITH THE ADJUSTMENT. [facility] MADE THE CHANGE IN [employer]. CONTINUE TO MONITOR; based on patient tolerance, may consider dose escalation to 1 mg/m2 or further dose reduction to 0.5 mg/m2 in subsequent cycles (UpToDate)
[2020-11-24] MEDS: dexAMETHasone sod phosphate/NS 12 MG/50 ML PIGGYBACK 200 MG IV (13:27)
--- NOTE | 2020-11-24 15:35 | MHC.HEMONC ---
pt seen by Dr Raman after Velcade and Zometa given. Pt agreed to go to ER and possibly be admitted for n/v and dehydration. She has been unable to eat. I accompanied her to ER. Her dtr is aware.
--- NOTE | 2020-11-24 16:12 | P.PNHO_ITS ---
Medical Summary - Medical Summary Date of Service: 11/24/20 Chief complaint: Follow-up for multiple myeloma. Medical Summary: DIAGNOSIS: 1. Hypercalcemia. 2. Multiple myeloma. CURRENT THERAPY: Here to receive RVD. Received Zometa 4 mg. Interval History Interval history: Klaudia Dow is a pleasant 75 year old lady, who is here for a follow-up visit. She does not feel well at all. She feels really weak. She has no energy at all. She has had ongoing nausea for weeks. Yesterday she vomited a couple of times . Today once, so far. Usually she brings up yellow bile. Somehow she is able to keep the pills down, however not much in terms of food. She has had loose stools. Denies gross blood in the stools. Her appetite is poor. Her weight has gone down. Her spirits are down. Rest of the review of systems is unremarkable. She does have visiting nurses. The nurse comes once a week. Physical therapist twice a week. Notes from 11/10: She tells me that she was admitted to the hospital last week. She just got discharged the day before. She presented with abdominal pain, nausea and vomiting the week before. This worsened. She felt tired and lethargic. CT scan of the abdomen pelvis revealed:: * Findings compatible with acute uncomplicated edematous pancreatitis, similar in appearance to prior. * Diffuse hepatic steatosis. Mild anasarca. * Pancolonic diverticulosis without evidence of diverticulitis. * Mild splenomegaly. Hospital course: Patient was admitted with intractable nausea and vomitting likely related to pancreatitis. Other than that, work up was essentially unremarkable. Her electrolytes have been unremarkable. She was treated with antiemtics, hydration and slowly her diet was advanced and is tolerating regular diet now. She will be discharge with Zofran, reglan PRN and is planned to have chemotherapy 11/10. This may cause additional symptoms in the shourt term but ultimately will help in the long run. CT scan of the right femur revealed: No fracture. No bone destruction. No focal bone lesion. No abnormal periosteal reaction. 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 Small joint effusion with suprapatellar fossa the right knee. Mild degenerative change of the right hip with joint narrowing. No soft tissue mass or focal abnormality. Previous history: She had COVID back in June 2020. She was admitted to [facility] for about 22 days. She she tells me it was complicated by pancreatitis. Further studies were negative for which immune, stone at that point. She reports that she did not feel normal since the COVID-19 infection as she ended up having G-tube for a while which was later removed. She lost some weight over the last few months by almost 40 lb. She has not felt well since then. She was admitted again 08/20/2020. Lipase was elevated. Initial CT abdomen did not show any peripancreatic inflammation. Imaging did show patchy airspace op acities bilaterally. Creatinine 1.8. O2 sat: Hypoxic. She was treated with steroids. Repeat CT did reveal acute interstitial pancreatitis. No evidence of necrosis or collection. As per revised Jayla classification, with no organ failure, no local or systemic complications. Does not drink alcohol. Status post cholecystectomy. Normal triglycerides. Concern was pancreatic malignancy. Autoimmune pancreatitis was ruled out. Was noted to have splenomegaly and platelet count of 90. Concern was undiagnosed cirrhosis, compensated, and portal hypertension. Doppler study did not reveal any thrombus in the portal venous system. Hospital course was complicated by acute kidney injury which resolved with IV hydration and improved oral intake. She still does not have an appetite. She still has symptoms of nausea and vomiting all the time. It has gotten better however she still not able to swallow solids. Even the liquids are hard to tolerate and sometimes come up. She has to take Zofran. She cannot tolerate Ensure nor Glucerna. She is trying to drink smoothies with protein powder in it along with some fruit. She has lost weight. She was 267 lb and now down to 221, since July. She feels exhausted. She has been noted to have mild pancytopenia since 08/17 5. She has been noted to be hypercalcemic. Since [id number], calcium has been between 8.9 and 9.9. 07/27: Calcium 10.3. It has been fluctuating since then. Calcium level 09/30/20:11.8. Albumin: 2.3. Actual calcium: 13.6. She used to be on calcium supplements: Vitamin-D 2000 internationally units and calcium plus vitamin-D 500 daily. Stopped that a few months ago. CT scan done in the emergency showing possible acute pancreatitis with mildly elevated pancreatic enzymes. Hospial course: Acute pancreatitis, manifested by elevated lipasse, CT finding, high calcium--thought be induced by hypercalcemia. Patient was seen by GI and managed conservatively with full recovery clinically and is tolerating diet now. Moderate Hypercalcemia-- Secondary to multiple myeloma. Treated with IVF and High dose steroid (decadron 40 IV) daily for 4 days. Constipation--due to hypercalcmeia--Treted with bowel regimen, colace, Mirilax, Senna. Pancytopenia Secondary to Multiple myeloma bone [place] biopsy done pending result. UTI: UCx Proteus. Treated with Ceftriaxone D3, switched to PO Ceftin for 7 days. Mild protein malnutrition: Low albumin 1.6. Increase in diet. Initially, she had Hypoglycemia secondary to Diabetes type 2: Discontinued Lantus 10 units, but then sugars were very high due steroids, so resumed upon discharge. DVT PPX: Lovenox was held. ROS: Fatigue. No fever. No appetite. Weight loss. Occasional headache. No shortness of breath but does get chest pain. Complains of pain in the abdomen in the upper middle area. Nausea and vomiting. Heartburn. Constipation. No gross blood in the stools. Occasional diarrhea. Increased urinary frequency. Had UTI in July. Complains of pain in her right knee which she is due for a replacement. Elbows and shoulders. Takes Tylenol. Legs have become weak. She has to walk with the help of her walker/wheelchair. Feels depressed. FAMILY HISTORY: A sister had cancer of breast, colon and polycythemia. SOCIAL HISTORY: She worked at [employer]. . Has 2 children. Denies smoking. Denies alcohol. Review of Systems - Constitutional Reports system reviewed and no additional complaints, except as documented, Reports lack of energy, Reports malaise, Reports poor appetite, Reports weight loss - Eyes Reports system reviewed and no additional complaints, except as documented - ENT Reports system reviewed and no additional complaints, except as documented - Cardiovascular Reports system reviewed and no additional complaints, except as documented - Respiratory Reports no additional respiratory complaints - Gastrointestinal Reports system reviewed and no additional complaints, except as documented, Reports abdominal pain, Reports belching, Reports bloating, Reports diarrhea, Reports nausea, Reports vomiting - Genitourinary Reports no additional female genitourinary complaints - Musculoskeletal Reports system reviewed and no additional complaints, except as documented - Integumentary/Breasts Skin/Breast: Reports no additional skin complaints - Neurologic Reports system reviewed and no additional complaints, except as documented, Reports headache(s), Reports weakness - Psychiatric Reports system reviewed and no additional complaints, except as documented - Endocrine Reports no additional endocrine complaints - Hematologic/Lymphatic Reports system reviewed and no additional complaints, except as documented - Allergic/Immunologic Reports system reviewed and no additional complaints, except as documented PMFSH Medical History: Medical History (Last Reviewed 11/24/20 @ 15:54 by Iris Wilson NP) Diabetes mellitus type 2, controlled, without complications Essential hypertension Hypercalcemia Hyperlipidemia, unspecified Hypoglycemia unawareness associated with type 2 diabetes mellitus Obstructive sleep apnea Pancytopenia Subclinical hyperthyroidism Functional capacity: wheelchair bound Patient : No Family History: Family History (Last Reviewed 11/24/20 @ 15:54 by Iris Wilson NP) Father No problems noted. Mother Heart disease Brother Atrial fibrillation Brother Atrial fibrillation Brother Atrial fibrillation Surgical History: Surgical History (Last Reviewed 11/24/20 @ 15:54 by Iris Wilson NP) History of knee replacement History of left hip replacement Social History: Social History (Last Reviewed 11/24/20 @ 15:54 by Iris Wilson NP) Living Situation History: Household Members: Children Household Members Other:: 3 Housing: House Do you presently have visiting nurse or other home services: Yes Alcohol History: Alcohol intake: never Alcohol History Details: Alcohol intake frequency: does not drink Tobacco History: Smoking Status: Never smoker Advance Directives: Advance Directives Date on File: 10/09/20 Occupation Assessmet: service: No Current occupational status: retired Smoking status: Never smoker Oncology Screenings - ECOG Performance Status ECOG Performance Status: 2 Home Medications and Allergies Current Medications: Current Medications Generic Name Dose Route Start Last Admin Trade Name Freq PRN Reason Stop Dose Admin Dexamethasone 20 mg 11/24/20 00:00 Dexamethasone 4 Mg Tablet PO 11/24/20 23:59 ONCE DONAVAN Heparin Sodium (Porcine) 500 unit 11/24/20 00:00 Heparin Sodium,Porcine Flush 500 Unit/5 Ml Syringe IVFLUSH 11/24/20 23:59 ONCE DONAVAN Ondansetron HCl 16 mg in 50 mls @ 200 mls/hr 11/24/20 10:30 11/24/20 10:57 Zofran IV Infused ONCE DONAVAN Infusion Bortezomib 1.6 mg/ IV 0.64 mls @ 0 mls/hr 11/24/20 00:00 11/24/20 14:18 Miscellaneous Supplies SUBCUT 11/24/20 23:59 1 mls/hr ONCE DONAVAN Administration As Directed Ondansetron HCl 8 mg 11/24/20 00:00 Ondansetron Odt 8 Mg Tab.Rapdis TRANSLINGU 11/24/20 23:59 ONCE DONAVAN Home Medications Medication Instructions Recorded Confirmed Type aspirin 81 mg chewable tablet 81 mg PO DAILY 04/22/20 11/24/20 History docusate sodium 100 mg capsule 100 mg PO BID PRN 04/22/20 11/24/20 History insulin aspart U-100 100 unit/mL 2 - 12 unit SUBCUT TID 04/22/20 11/24/20 History (3 mL) subcutaneous pen omeprazole 20 mg capsule,delayed 20 mg PO DAILY 04/22/20 11/24/20 History release polyethylene glycol 3350 [Miralax] 17 g PO DAILY PRN 10/06/20 11/24/20 History sennosides [senna] 8.6 mg PO BEDTIME PRN 10/09/20 11/24/20 History furosemide 20 mg tablet 20 mg PO DAILY 10/29/20 11/24/20 History Allergies Allergy/AdvReac Type Severity Reaction Status Date / Time codeine [CODEINE] Allergy Intermediate NAUSEA & Verified 10/25/20 10:17 VOMITING, vomiting lisinopril [LISINOPRIL] Allergy Intermediate COUGH, Verified 10/25/20 10:17 Coughing sulfamethoxazole Allergy Intermediate RASH Verified 10/25/20 10:17 [From BACTRIM] Exam Vital signs: Vital Signs Temp 97.1 F 11/24/20 09:52 Pulse 78 11/24/20 09:52 Resp 18 11/24/20 09:52 BP 100/53 L 11/24/20 09:52 Pulse Ox 99 11/24/20 09:52 Intake & Output 11/23/20 11/24/20 11/24/20 18:59 06:59 18:59 Intake Total 150 / 150 Balance 150 / 150 Intake: Intake, IV Amount 150 / 150 Zoledronic AC/Mannitol/0.9NACL 100 / 100 4 mg In 100 ml @ 400 mls/hr IV ONCE ONE Rx#:[id number] ondansetron HCL/NS 16 mg In 50 50 / 50 ml @ 200 mls/hr IV ONCE DONAVAN Rx# :[id number] Weight 103.5 kg Body Mass Index 38.0 - Constitutional Present: moderate distress - Routine HEENT Exam Head: Present: normal inspection Eye: Present: normal appearance ENT: Present: mucous membranes moist - Routine Neck Exam Present: full ROM - Routine Respiratory Exam Present: CTAB - Routine Cardiovascular Exam Cardiovascular: Present: RRR, S1, S2 - Routine Abdominal Exam Present: tenderness - Routine Rectal Exam Patient deferred: digital exam - Routine Extremities Exam Present: nontender - Routine Back/Spine/Pelvis Exam Back/Spine: Present: full ROM - Routine Skin Exam Present: intact - Routine Neurological Exam Present: alert, oriented X3 - Routine Psychiatric Exam Present: normal affect Data - Labs CBC & Chem 7: 11/24/20 10:24 11/24/20 10:24 Labs: 10/06/20 12:15 0.9 % Sodium Chloride [Ns] 1,000 ml IVCONT 500 mls/hr 10/06/20 12:25 Beta-2 Microglobulin, Serum Routine Complete Blood Count [facility] Routine Comprehensive Met. Panel Routine Erythrocyte Sedimentation Rate Routine Immunofixation Pnl, Serum Routine [place]/Lambda Lt Ch,Free w rat Routine Laboratory Last Values WBC 2.4 X10*3/uL (4.8-10.8) L 10/06/20 12:25 RBC 3.46 X10*6/uL (4.20-5.50) L 10/06/20 12:25 Hgb 10.8 g/dl (12.0-16.0) L 10/06/20 12:25 Hct 33.7 % (37-47) L 10/06/20 12:25 MCV 97.4 fL (80-98) 10/06/20 12:25 MCH 31.2 pg (27.0-33.0) 10/06/20 12:25 MCHC 32.0 g/dl (31.0-35.0) 10/06/20 12:25 RDW 15.6 % (11.0-16.0) 10/06/20 12:25 Plt Count 94 X10*3/uL (160-400) L 10/06/20 12:25 MPV 11.0 fL (9.4-12.3) 10/06/20 12:25 Absolute Nucleated RBC 0.000 X10*3/uL (0.0-0.012) 10/06/20 12:25 Nucleated RBC % (auto) 0.0 /100WBC (0.0-0.2) 10/06/20 12:25 Neutrophils % (Manual) 42 % (45-73) L 10/06/20 12:25 Band Neutrophils % 0 % (3-5) L 10/06/20 12:25 Lymphocytes % (Manual) 50 % (20-40) H 10/06/20 12:25 Atypical Lymphs % (Man) 3 % (0-6) 10/06/20 12:25 Monocytes % (Manual) 5 % (2-11) 10/06/20 12:25 Abs Neuts (Manual) 1.0 X10*3/uL (2.2-7.9) L 10/06/20 12:25 Lymphocytes # (Manual) 1.2 X10*3/uL (0.6-4.8) 10/06/20 12:25 Atyp Lymphs # (Manual) 0.1 x10*3/uL 10/06/20 12:25 Monocytes # (Manual) 0.1 X10*3/uL (0.0-1.2) 10/06/20 12:25 Platelet Estimate DECREASED (NORMAL) 10/06/20 12:25 Large Platelets PRESENT 10/06/20 12:25 Plt Morphology Comment NOTED 10/06/20 12:25 RBC Morphology NORMAL 10/06/20 12:25 ESR 18 MM/HR (0-20) 10/06/20 12:25 Sodium 136 mmol/L (135-145) 10/06/20 12:25 Potassium 3.7 mmol/L (3.3-5.1) 10/06/20 12:25 Chloride 107 mmol/L (96-108) 10/06/20 12:25 Carbon Dioxide 22 mmol/L (22-29) 10/06/20 12:25 Anion Gap 11 (12-20) L 10/06/20 12:25 BUN 12 mg/dL (9-16) 10/06/20 12:25 Creatinine 1.28 mg/dL (0.5-1.4) 10/06/20 12:25 Estim Creat Clear Calc TNP 10/06/20 12:25 Estimated GFR 41 10/06/20 12:25 Random Glucose 130 mg/dL (60-115) H D 10/06/20 12:25 Calcium 11.2 mg/dL (8.4-10.2) H 10/06/20 12:25 Total Bilirubin 0.9 mg/dL (0.0-1.0) 10/06/20 12:25 AST 22 U/L (5-31) 10/06/20 12:25 ALT 13 U/L (0-31) 10/06/20 12:25 Alkaline Phosphatase 59 U/L (39-117) 10/06/20 12:25 Total Protein 7.7 g/dL (6.5-8.0) 10/06/20 12:25 Albumin 2.1 g/dL (3.5-5.0) L 10/06/20 12:25 Axji-8-Rcanetyyvybah 22.59 mg/L (< OR = 2.51) H 10/06/20 12:25 IgG Total 4482 mg/dL (600-1540) H 10/06/20 12:25 IgA Total 21 mg/dL (70-320) L 10/06/20 12:25 IgM 27 mg/dL (50-300) L 10/06/20 12:25 ASHA Interpretation SEE NOTE 10/06/20 12:25 Free [place] LC, Quant 6036.3 mg/L (3.3-19.4) H 10/06/20 12:25 Free Lambda LC, Quant 10.3 mg/L (5.7-26.3) 10/06/20 12:25 Free [place]/Lambda Ratio 586.05 (0.26-1.65) H 10/06/20 12:25 Progress Note: A/P (1) Hypercalcemia Status: Acute (2) Multiple myeloma Status: Acute Assessment and plan: DATABASE: 10/15: CBC: WBC 1.7, HGB 9, HCT 27.5, PLT 69. CMP: Lytes: WNL, glue to 79, BUN 23, SCHEDULER MAINTENANCE 1.08. Venkat 9.3. LFTs: 0.8/39/20/14. This is a pleasant 75-year-old lady with a history of her diabetes, recent COVID infection back in [place], complicated by interstitial pancreatitis, then presented with hypercalcemia. She had an SIEP done back in 2018: IgG: To 637, IgA: 66, IgM: 67. IgG kappa monoclonal band present. Urine IEP: Showed free light chains. Given the clinical picture, most likely she has multiple myeloma. I proceeded with further evaluation. I rechecked SIEP: IgG 4482, IgA 21, IgM 27. IgG kappa monoclonal band present. Free light chains present. Serum free light chain ratio: 586.05. Checked beta 2 microglobulin level for prognosis. (22.2.) l checked skeletal survey on10/06: No fracture or definite bony lesion. Osteopenia versus lucency in the right medial femoral shaft just inferior to the lesser trochanter and left distal femoral shaft. Left hip and knee replacements. Degenerative changes of the spine. Bone marrow exam from 10/14: Consistent with plasma cell myeloma. Plasma cells are 60-70% of marrow cellularity. Myeloma FISH panel: Dup(1q), Del (13), Del(17p), and t(4;14) were all detected.. l tried to proceed with a PET scan for further evaluation. It has been denied. Will do appear to appear. l tried to arrange for Denosumab, for hypercalcemia and multiple myeloma. However the insurance plan did not cover. I tried to do Peer to Peer, however the physician approved Zometa.Her dose comes to 3.5 mg. Will arrange for it later in the week. CT scan of the right femur revealed: No fracture. No bone destruction. No focal bone lesion. No abnormal periosteal reaction. 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 Small joint effusion with suprapatellar fossa the right knee. Mild degenerative change of the right hip with joint narrowing. No soft tissue mass or focal abnormality. Ultrasound of the right upper extremity revealed: There is occlusive thrombus in the distal basilic vein. She was advised to use warm compresses on it. l arranged for RVD based regimen. She has been started on it. She is here to receive the Velcade and Zometa today. There are other regimens recommended including daratumumab/lenalidomide and Decadron. And carfilzomib/Lenalidomide and Decadron. However, this is the only regimen shown to have overall survival benefit, at this point. She complains of tenderness and swelling right upper extremity, medially around the elbow area. She has generalized anasarca. She still has nausea, has not been able to keep much down. Her IgG level her declined: On 10/06 it was 4482. On 10/23 it was 2933. PLAN: She was 1st given IV Zofran, to settle the nausea. The Decadron 20 mg was given IV as well. Rest of the p.o. meds: Revlimid, Mepron, and Valtrex were given orally. She was able to tolerate it. The plan from the discharge summary from [facility] revealed that she was supposed to have been endoscopic ultrasound for further evaluation, to assess for malignancy, in few weeks. I have set up an appoinment with Dr. Marques's office for November 30, to arrange for endoscopic ultrasound as well as MRI of the abdomen. She has not been able to keep any food down for days and feels really weak and fatigued. She was referred to the emergency room to be admitted. Thanks, CC: Dr. Cowart. Dr. Dr. Givens. Dr. Soliman. - Time Spent With Patient Total time spent is greater than 50% in coordination of care (as documented) at patient's floor/unit and/or counseling patient: 25 - 35 minutes
--- NOTE | 2020-11-30 09:11 | MHC.HEMONC ---
recent hospital consults including GI sent to Dr Valdovinos as she has appt there in [place] this afternoon.
[2020-12-01 10:01] VITALS: BP 109/76; PULSE 89; RESP 18; TEMP 36.4; O2SAT 99; BMI 40.0
[2020-12-01 10:11] VITALS: BP 109/76; PULSE 89; RESP 18; TEMP 36.4; O2SAT 99; BMI 40.0
[2020-12-01 10:54] LABS: Hematocrit 27.4 % (37-47); Hemoglobin 8.9 g/dl (12.0-16.0); Mean Corpuscular HGB Conc 32.5 g/dl (31.0-35.0); Mean Corpuscular Hemoglobin 32.4 pg (27.0-33.0); Mean Corpuscular Volume 99.6 fL (80-98); Mean Platelet Volume 11.9 fL (9.4-12.3); Platelet Count 105 X10*3/uL (160-400); Red Blood Count 2.75 X10*6/uL (4.20-5.50); Red Cell Distribution Width 20.4 % (11.0-16.0)
[2020-12-01 10:55] LABS: WBC ABN SCTR FOR CBC 1
[2020-12-01 10:56] LABS: White Blood Count 1.2 X10*3/uL (4.8-10.8)
[2020-12-01 11:30] LABS: Atypical Lymphs Percent Manual 4 % (0-6); Band Neutrophils Percent 0 % (3-5); Basophils Percent Manual 1 % (0-1); Lymphocytes Absolute Manual 0.7 X10*3/uL (0.6-4.8); Lymphocytes Percent Manual 55 % (20-40); Monocytes Absolute Manual 0.1 X10*3/uL (0.0-1.2); Monocytes Percent Manual 5 % (2-11); Neutrophils Absolute Manual 0.4 X10*3/uL (2.2-7.9); Neutrophils Percent Manual 35 % (45-73)
[2020-12-01 11:32] LABS: Alanine Aminotransferase 16 U/L (0-31); Alkaline Phosphatase 48 U/L (39-117); Aspartate Amino Transferase 12 U/L (5-31); Bilirubin Total 0.7 mg/dL (0.0-1.0); Blood Urea Nitrogen 13 mg/dL (9-16); Creatinine Clr Calc Pharmacy 78.8; Estimated Glomerular Filt Rate > 60; Glucose Random 211 mg/dL (60-115); Platelet Estimate DECREASED (NORMAL); Platelet Morphology Comment NORMAL; Total Protein 5.4 g/dL (6.5-8.0)
[2020-12-01 11:33] LABS: Macrocytosis 1+ (5-14) /OIF; RBC Morphology NOTED
[2020-12-01 11:46] LABS: Albumin Level 1.8 g/dL (3.5-5.0); Anion Gap 10 (12-20); Calcium 7.6 mg/dL (8.4-10.2); Carbon Dioxide 22 mmol/L (22-29); Chloride 109 mmol/L (96-108); Potassium 4.5 mmol/L (3.3-5.1); Sodium 136 mmol/L (135-145)
[2020-12-01] MEDS: ondansetron HCL/NS 16 MG/50 ML PIGGYBACK 200 MG IV (12:38)
--- NOTE | 2020-12-01 14:17 | MHC.HEMONC ---
Addendum entered by Ana Luisa Snider RN 12/01/20 15:15: Pt has reddened area to right breast. States she noticed it 2 days ago. The area is soft to the touch, and pt denies discomfort. Dr Raman made aware and was in to see pt to assess. Original Note: Pt here for C1 D22 of Velcade. Pt discharged home from hospital on 11/26. States she is feeling much better. Had transfusion. Has had some nausea, but no vomiting. Port accessed, labs drawn and reviewed. Premedicated with dexamethasone and zofran as ordered. Velcade injection given and pt tolerated well. Will return tomorrow for dexamethasone dose.
[2020-12-02 13:20] VITALS: BP 106/63; PULSE 95; RESP 18; TEMP 36.8; O2SAT 98; BMI 40.0
--- NOTE | 2020-12-02 14:59 | MHC.HEMONC ---
Pt here to receive Dexamethasone IV. Port flushed, good blood return. Pt states feels very good today. Has had no vomiting. States after next treatment, if she continues to feel good, and have no vomiting, will take the dexamethasone dose po. Port flush done and deaccessed. Will return in 1 week for next treatment.
[2020-12-08 09:56] VITALS: BMI 38.5
[2020-12-08 11:11] LABS: Hemoglobin 8.9 g/dl (12.0-16.0); MANUAL DIFF FLAG SCAN; Monocytes Absolute Auto 0.1 X10*3/uL (0.1-1.2); SCAN SMEAR FLAG 1
[2020-12-08 11:13] LABS: Basophils Percent Auto 1.1 % (0-2); Eosinophils Absolute Auto 0.1 X10*3/uL (0.0-0.4); Eosinophils Percent Auto 3.7 % (0-4); Hematocrit 27.4 % (37-47); Lymphocytes Absolute Auto 0.6 X10*3/uL (1.2-4.9); Lymphocytes Percent Auto 29.3 % (20-40); Mean Corpuscular HGB Conc 32.5 g/dl (31.0-35.0); Mean Corpuscular Volume 101.5 fL (80-98); Mean Platelet Volume 13.4 fL (9.4-12.3); Monocytes Percent Auto 2.7 % (2-11); Neutrophils Absolute Auto 1.2 X10*3/uL (2.0-8.3); Neutrophils Percent Auto 63.2 % (45-73); Red Cell Distribution Width 20.1 % (11.0-16.0)
[2020-12-08 11:15] LABS: PLT ABN DIST 1; Platelet Count 97 X10*3/uL (160-400); White Blood Count 1.9 X10*3/uL (4.8-10.8)
[2020-12-08 11:34] LABS: Alanine Aminotransferase 18 U/L (0-31); Albumin Level 1.8 g/dL (3.5-5.0); Alkaline Phosphatase 54 U/L (39-117); Anion Gap 12 (12-20); Aspartate Amino Transferase 15 U/L (5-31); Blood Urea Nitrogen 15 mg/dL (9-16); Calcium 7.4 mg/dL (8.4-10.2); Carbon Dioxide 21 mmol/L (22-29); Chloride 105 mmol/L (96-108); Creatinine Clr Calc Pharmacy 74.1; Estimated Glomerular Filt Rate > 60; Glucose Random 214 mg/dL (60-115); Potassium 3.7 mmol/L (3.3-5.1); Sodium 134 mmol/L (135-145); Total Protein 5.6 g/dL (6.5-8.0)
[2020-12-08 11:43] LABS: SLIDE REVIEW VERIFIED
[2020-12-08] MEDS: Heparin Sodium,Porcine Flush 500 UNIT/5 ML SYRINGE IVFLUSH (12:00)
[2020-12-08] MEDS: ondansetron HCL/NS 16 MG/50 ML PIGGYBACK 200 MG IV (12:00)
[2020-12-15 09:54] VITALS: BP 95/56; PULSE 88; RESP 18; TEMP 36.5; O2SAT 99; BMI 37.9
[2020-12-15 10:52] LABS: Basophils Percent Auto 3.7 % (0-2); Eosinophils Absolute Auto 0.1 X10*3/uL (0.0-0.4); Eosinophils Percent Auto 4.7 % (0-4); Hematocrit 26.2 % (37-47); Hemoglobin 8.3 g/dl (12.0-16.0); Imm Gran Abs Auto 0.01 X10*3/uL (0.00-0.03); Imm Gran Pct Auto 0.9 % (0.0-0.4); Lymphocytes Absolute Auto 0.4 X10*3/uL (1.2-4.9); Lymphocytes Percent Auto 37.4 % (20-40); MANUAL DIFF FLAG SCAN; Mean Corpuscular HGB Conc 31.7 g/dl (31.0-35.0); Mean Corpuscular Hemoglobin 32.9 pg (27.0-33.0); Mean Platelet Volume 12.7 fL (9.4-12.3); Monocytes Absolute Auto 0.1 X10*3/uL (0.1-1.2); Monocytes Percent Auto 9.3 % (2-11); Neutrophils Absolute Auto 0.5 X10*3/uL (2.0-8.3); Red Blood Count 2.52 X10*6/uL (4.20-5.50); Red Cell Distribution Width 19.3 % (11.0-16.0); SCAN SMEAR FLAG 1
[2020-12-15 10:53] LABS: Platelet Count 78 X10*3/uL (160-400); White Blood Count 1.1 X10*3/uL (4.8-10.8)
[2020-12-15 11:21] LABS: Alanine Aminotransferase 19 U/L (0-31); Albumin Level 1.9 g/dL (3.5-5.0); Alkaline Phosphatase 53 U/L (39-117); Aspartate Amino Transferase 14 U/L (5-31); Blood Urea Nitrogen 14 mg/dL (9-16); Creatinine Clr Calc Pharmacy 74.5; Estimated Glomerular Filt Rate > 60; Glucose Random 232 mg/dL (60-115); Total Protein 5.4 g/dL (6.5-8.0)
[2020-12-15 11:32] LABS: Anion Gap 9 (12-20); Carbon Dioxide 20 mmol/L (22-29); Chloride 110 mmol/L (96-108); Sodium 135 mmol/L (135-145)
[2020-12-15 11:37] LABS: SLIDE REVIEW VERIFIED
[2020-12-15] MEDS: Heparin Sodium,Porcine Flush 500 UNIT/5 ML SYRINGE IVFLUSH (12:38)
--- NOTE | 2020-12-15 12:48 | MHC.HEMONC ---
pt attended for chemo, anc 0.5 treatment held this week. ix dexamethsone
--- NOTE | 2020-12-15 12:53 | HE.PHANOTE ---
RECOMMENDED DELAYING VELCADE DUE TO LOW ANC (0.5). PATIENT ALREADY ON A REDUCED DOSE.
--- NOTE | 2020-12-17 16:19 | MHC.HEMONC ---
[facility] auth #[id number] faxed to [facility] [phone] confirmation received.
[2020-12-22 09:54] VITALS: BP 102/59; PULSE 84; RESP 18; TEMP 36.8; O2SAT 99; BMI 37.9
[2020-12-22 10:24] LABS: Hematocrit 25.8 % (37-47); Hemoglobin 8.4 g/dl (12.0-16.0); Lymphocytes Absolute Auto 0.7 X10*3/uL (1.2-4.9); Lymphocytes Percent Auto 50.7 % (20-40); MANUAL DIFF FLAG SCAN; Mean Corpuscular HGB Conc 32.6 g/dl (31.0-35.0); Mean Corpuscular Volume 104.5 fL (80-98); Mean Platelet Volume 10.8 fL (9.4-12.3); Monocytes Absolute Auto 0.2 X10*3/uL (0.1-1.2); Monocytes Percent Auto 11.2 % (2-11); Neutrophils Absolute Auto 0.4 X10*3/uL (2.0-8.3); Neutrophils Percent Auto 32.1 % (45-73); Red Blood Count 2.47 X10*6/uL (4.20-5.50); Red Cell Distribution Width 19.5 % (11.0-16.0); SCAN SMEAR FLAG 1
[2020-12-22 10:26] LABS: Platelet Count 91 X10*3/uL (160-400); White Blood Count 1.3 X10*3/uL (4.8-10.8)
--- NOTE | 2020-12-22 10:30 | MHC.HEMONC ---
Pt here for Hem follow up with Dr Alicia,blood draw and B-12 injection. B-12 injection given in right deltoid-tolerated well. Follow up appointments given for next B-12 injections.
[2020-12-22 10:40] LABS: Alanine Aminotransferase 11 U/L (0-31); Albumin Level 1.8 g/dL (3.5-5.0); Alkaline Phosphatase 48 U/L (39-117); Anion Gap 9 (12-20); Aspartate Amino Transferase 10 U/L (5-31); Bilirubin Total 0.7 mg/dL (0.0-1.0); Blood Urea Nitrogen 17 mg/dL (9-16); Calcium 7.8 mg/dL (8.4-10.2); Carbon Dioxide 19 mmol/L (22-29); Chloride 111 mmol/L (96-108); Creatinine Clr Calc Pharmacy 73.5; Estimated Glomerular Filt Rate > 60; Glucose Random 163 mg/dL (60-115); Potassium 3.9 mmol/L (3.3-5.1); Sodium 135 mmol/L (135-145); Total Protein 5.5 g/dL (6.5-8.0)
[2020-12-22 11:22] LABS: SLIDE REVIEW VERIFIED
--- NOTE | 2020-12-22 11:36 | HE.PHANOTE ---
PATIENT'S ANC STILL LOW. RNs REPORT THAT PATIENT IS FEELING BETTER DESPITE POOR LABS. CONTACTED MD AND RECOMMENDED HOLDING DOSE. MD WOULD LIKE TO CONTINUE TREATMENT, [facility] RECOMMENDED CONTINUING AT REDUCED DOSE OF 0.7 MGM2; MD AGREES
[2020-12-22] MEDS: ondansetron HCL/NS 16 MG/50 ML PIGGYBACK 200 MG IV (11:44)
[2020-12-22] MEDS: Heparin Sodium,Porcine Flush 500 UNIT/5 ML SYRINGE IVFLUSH (11:45)
[2020-12-29 10:21] VITALS: BP 120/55; PULSE 95; RESP 18; TEMP 36.8; O2SAT 99; BMI 38.5
[2020-12-29 11:01] LABS: Basophils Percent Auto 2.1 % (0-2); Eosinophils Absolute Auto 0.1 X10*3/uL (0.0-0.4); Hematocrit 26.6 % (37-47); Hemoglobin 8.6 g/dl (12.0-16.0); Lymphocytes Absolute Auto 0.6 X10*3/uL (1.2-4.9); Lymphocytes Percent Auto 41.4 % (20-40); MANUAL DIFF FLAG SCAN; Mean Corpuscular HGB Conc 32.3 g/dl (31.0-35.0); Mean Corpuscular Hemoglobin 34.3 pg (27.0-33.0); Mean Platelet Volume 11.6 fL (9.4-12.3); Monocytes Absolute Auto 0.1 X10*3/uL (0.1-1.2); Neutrophils Absolute Auto 0.7 X10*3/uL (2.0-8.3); Neutrophils Percent Auto 46.5 % (45-73); Platelet Count 108 X10*3/uL (160-400); Red Blood Count 2.51 X10*6/uL (4.20-5.50); Red Cell Distribution Width 19.3 % (11.0-16.0); SCAN SMEAR FLAG 1; White Blood Count 1.4 X10*3/uL (4.8-10.8)
[2020-12-29 11:35] LABS: SLIDE REVIEW VERIFIED
[2020-12-29 11:41] LABS: Alanine Aminotransferase 13 U/L (0-31); Alkaline Phosphatase 50 U/L (39-117); Anion Gap 10 (12-20); Bilirubin Total 0.8 mg/dL (0.0-1.0); Blood Urea Nitrogen 14 mg/dL (9-16); Carbon Dioxide 18 mmol/L (22-29); Chloride 113 mmol/L (96-108); Creatinine Clr Calc Pharmacy 73.4; Estimated Glomerular Filt Rate > 60; Potassium 4.1 mmol/L (3.3-5.1); Sodium 137 mmol/L (135-145); Total Protein 5.5 g/dL (6.5-8.0)
[2020-12-29] MEDS: ondansetron HCL/NS 16 MG/50 ML PIGGYBACK 200 MG IV (11:48)
[2020-12-29 11:58] LABS: Albumin Level 1.7 g/dL (3.5-5.0); Aspartate Amino Transferase 17 U/L (5-31); Glucose Random 232 mg/dL (60-115)
[2020-12-29] MEDS: Heparin Sodium,Porcine Flush 500 UNIT/5 ML SYRINGE IVFLUSH (12:15)
--- NOTE | 2020-12-29 12:29 | MHC.HEMONC ---
pt doing really well. Appetite and intake is good, activity tolerance improved. ANC 700 so remains on dose reduced velcade. Taking Revlimid as rx.
[2021-01-05 09:49] VITALS: BP 112/58; PULSE 97; RESP 18; TEMP 36.4; O2SAT 98; BMI 38.5
[2021-01-05 10:36] LABS: Basophils Percent Auto 0.7 % (0-2); Hematocrit 26.8 % (37-47); Hemoglobin 8.7 g/dl (12.0-16.0); Lymphocytes Absolute Auto 0.6 X10*3/uL (1.2-4.9); Lymphocytes Percent Auto 41.8 % (20-40); MANUAL DIFF FLAG SCAN; Mean Corpuscular HGB Conc 32.5 g/dl (31.0-35.0); Mean Corpuscular Volume 104.7 fL (80-98); Mean Platelet Volume 12.2 fL (9.4-12.3); Monocytes Absolute Auto 0.1 X10*3/uL (0.1-1.2); Monocytes Percent Auto 6.7 % (2-11); Neutrophils Absolute Auto 0.6 X10*3/uL (2.0-8.3); Neutrophils Percent Auto 47.8 % (45-73); Red Blood Count 2.56 X10*6/uL (4.20-5.50); Red Cell Distribution Width 18.4 % (11.0-16.0); SCAN SMEAR FLAG 1
[2021-01-05 10:37] LABS: Platelet Count 95 X10*3/uL (160-400); White Blood Count 1.3 X10*3/uL (4.8-10.8)
[2021-01-05 11:02] LABS: SLIDE REVIEW VERIFIED
[2021-01-05 11:03] LABS: Alanine Aminotransferase 20 U/L (0-31); Albumin Level 1.6 g/dL (3.5-5.0); Alkaline Phosphatase 48 U/L (39-117); Aspartate Amino Transferase 19 U/L (5-31); Bilirubin Total 0.9 mg/dL (0.0-1.0); Blood Urea Nitrogen 11 mg/dL (9-16); Creatinine Clr Calc Pharmacy 81.3; Estimated Glomerular Filt Rate > 60; Glucose Random 163 mg/dL (60-115); Total Protein 5.3 g/dL (6.5-8.0)
[2021-01-05] MEDS: ondansetron HCL/NS 16 MG/50 ML PIGGYBACK 200 MG IV (11:11)
[2021-01-05 11:17] LABS: Anion Gap 7 (12-20); Calcium 6.5 mg/dL (8.4-10.2); Carbon Dioxide 20 mmol/L (22-29); Chloride 112 mmol/L (96-108); Potassium 2.8 mmol/L (3.3-5.1); Sodium 136 mmol/L (135-145)
--- NOTE | 2021-01-05 11:35 | HE.PHANOTE ---
PT ANC IS LOWER THAN RECOMMENDED LEVEL FOR TREATMENT (CURRENTLY 0.6; RECOMMENDED >0.75). SPOKE TO MD AND PATIENT IS IMPROVING ON CURRENT, REDUCED DOSE AND WOULD LIKE TO TREAT TODAY.
[2021-01-05] MEDS: Potassium Chloride/H20 10 MEQ/100 ML PIGGYBACK 100 MEQ IV ×2 (11:45→12:45)
[2021-01-05] MEDS: Heparin Sodium,Porcine Flush 500 UNIT/5 ML SYRINGE IVFLUSH (14:00)
--- NOTE | 2021-01-05 14:26 | MHC.HEMONC ---
pt labs reviewed. WBC and ANC low. Dr Raman advised. We will give velcade but at reduced dose. She is taking Revlimid a/o. Potassium level was 2.8. She was given 20mEq IV potassium over two hours. She tolerated everything well. Dr Raman to order KCLpills for home. She had some c/o diarrhea since started on spirinalactone. She will f/u with her PCP.
--- NOTE | 2021-01-08 08:14 | MHC.HEMONC ---
[facility] Auth # [id number] valid 01/08/21-02/07/21
--- NOTE | 2021-01-12 11:10 | MHC.HEMONC ---
pt is INPATIENT for sepsis. She is receiving blood today and going home on antibiotics. She also got Neupogen today. She will start Revlimid on Monday as long as she feels well per Dr Raman. She will be in Monday for labs and Velcade with Dex.
--- NOTE | 2021-01-15 15:39 | HO.HEMONCPA ---
[facility] ([id number]) DOES NOT REQUIRE A PA. DRUG COVERED UNDER PT'S INSURANCE PLAN. REF#[id number]. JO NOGUEIRA Rx REP.
[2021-01-19 10:18] VITALS: BP 123/60; PULSE 99; RESP 18; TEMP 36.3; O2SAT 98; BMI 38.6
[2021-01-19 11:03] LABS: Basophils Percent Auto 2.2 % (0-2); Eosinophils Percent Auto 1.1 % (0-4); Hematocrit 29.4 % (37-47); Hemoglobin 9.5 g/dl (12.0-16.0); Imm Gran Abs Auto 0.01 X10*3/uL (0.00-0.03); Imm Gran Pct Auto 0.6 % (0.0-0.4); Lymphocytes Absolute Auto 0.7 X10*3/uL (1.2-4.9); MANUAL DIFF FLAG SCAN; Mean Corpuscular HGB Conc 32.3 g/dl (31.0-35.0); Mean Corpuscular Hemoglobin 33.8 pg (27.0-33.0); Mean Corpuscular Volume 104.6 fL (80-98); Mean Platelet Volume 10.8 fL (9.4-12.3); Monocytes Absolute Auto 0.1 X10*3/uL (0.1-1.2); Monocytes Percent Auto 6.7 % (2-11); Neutrophils Absolute Auto 0.9 X10*3/uL (2.0-8.3); Neutrophils Percent Auto 49.4 % (45-73); Platelet Count 103 X10*3/uL (160-400); Red Cell Distribution Width 17.7 % (11.0-16.0); SCAN SMEAR FLAG 1
[2021-01-19 11:04] LABS: White Blood Count 1.8 X10*3/uL (4.8-10.8)
[2021-01-19 11:05] LABS: Red Blood Count 2.81 X10*6/uL (4.20-5.50)
[2021-01-19 11:29] LABS: Alanine Aminotransferase 10 U/L (0-31); Alkaline Phosphatase 46 U/L (39-117); Anion Gap 10 (12-20); Aspartate Amino Transferase 10 U/L (5-31); Bilirubin Total 0.7 mg/dL (0.0-1.0); Blood Urea Nitrogen 9 mg/dL (9-16); Carbon Dioxide 15 mmol/L (22-29); Chloride 112 mmol/L (96-108); Creatinine Clr Calc Pharmacy 63.9; Estimated Glomerular Filt Rate 59; Glucose Random 203 mg/dL (60-115); Sodium 133 mmol/L (135-145); Total Protein 5.9 g/dL (6.5-8.0)
[2021-01-19 11:41] LABS: Albumin Level 1.5 g/dL (3.5-5.0)
[2021-01-19 12:31] LABS: SLIDE REVIEW VERIFIED
[2021-01-19] MEDS: ondansetron HCL/NS 16 MG/50 ML PIGGYBACK 200 MG IV (12:59)
[2021-01-19] MEDS: Heparin Sodium,Porcine Flush 500 UNIT/5 ML SYRINGE IVFLUSH (12:59)
[2021-01-26 09:45] VITALS: BP 110/55; PULSE 89; RESP 18; TEMP 36.3; O2SAT 100; BMI 38.9
[2021-01-26 10:44] LABS: Basophils Percent Auto 1.1 % (0-2); Eosinophils Percent Auto 1.1 % (0-4); Hematocrit 27.9 % (37-47); Imm Gran Abs Auto 0.01 X10*3/uL (0.00-0.03); Imm Gran Pct Auto 0.6 % (0.0-0.4); Lymphocytes Absolute Auto 0.7 X10*3/uL (1.2-4.9); Lymphocytes Percent Auto 38.9 % (20-40); MANUAL DIFF FLAG SCAN; Mean Corpuscular HGB Conc 32.3 g/dl (31.0-35.0); Mean Corpuscular Hemoglobin 33.8 pg (27.0-33.0); Mean Corpuscular Volume 104.9 fL (80-98); Mean Platelet Volume 12.5 fL (9.4-12.3); Monocytes Absolute Auto 0.1 X10*3/uL (0.1-1.2); Monocytes Percent Auto 5.1 % (2-11); Neutrophils Absolute Auto 0.9 X10*3/uL (2.0-8.3); Neutrophils Percent Auto 53.2 % (45-73); Platelet Count 106 X10*3/uL (160-400); Red Blood Count 2.66 X10*6/uL (4.20-5.50); Red Cell Distribution Width 17.5 % (11.0-16.0); SCAN SMEAR FLAG 1
[2021-01-26 10:45] LABS: White Blood Count 1.8 X10*3/uL (4.8-10.8)
--- NOTE | 2021-01-26 10:51 | PM.HEMONCPN ---
Medical Summary - Medical Summary Date of Service: 01/26/21 Chief complaint: Follow-up for: Multiple myeloma. Medical Summary: DIAGNOSIS: 1. Hypercalcemia. 2. Multiple myeloma. CURRENT THERAPY: Here to receive RVD. Interval History Interval history: Klaudia Dow is a pleasant 75 year old lady, who is here for a follow-up visit. She is feeling well. Her energy level has improved. She denies any abdominal pain nausea or vomiting. Her bowels are working. Denies gross blood in the stools. Her appetite is good. Her weight has stabilized. She has noticed a rash in the folds of her belly. She is in good spirits. Rest of the review of systems is unremarkable. She used to have visiting nurses. The nurse came once a week. Physical therapist twice a week. Notes from 11/10: She tells me that she was admitted to the hospital last week. She just got discharged the day before. She presented with abdominal pain, nausea and vomiting the week before. This worsened. She felt tired and lethargic. CT scan of the abdomen pelvis revealed:: * Findings compatible with acute uncomplicated edematous pancreatitis, similar in appearance to prior. * Diffuse hepatic steatosis. Mild anasarca. * Pancolonic diverticulosis without evidence of diverticulitis. * Mild splenomegaly. Hospital course: Patient was admitted with intractable nausea and vomitting likely related to pancreatitis. Other than that, work up was essentially unremarkable. Her electrolytes have been unremarkable. She was treated with antiemtics, hydration and slowly her diet was advanced and is tolerating regular diet now. She will be discharge with Zofran, reglan PRN and is planned to have chemotherapy 11/10. This may cause additional symptoms in the shourt term but ultimately will help in the long run. CT scan of the right femur revealed: No fracture. No bone destruction. No focal bone lesion. No abnormal periosteal reaction. 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 Small joint effusion with suprapatellar fossa the right knee. Mild degenerative change of the right hip with joint narrowing. No soft tissue mass or focal abnormality. Previous history: She had COVID back in June 2020. She was admitted to [facility] for about 22 days. She she tells me it was complicated by pancreatitis. Further studies were negative for which immune, stone at that point. She reports that she did not feel normal since the COVID-19 infection as she ended up having G-tube for a while which was later removed. She lost some weight over the last few months by almost 40 lb. She has not felt well since then. She was admitted again 08/20/2020. Lipase was elevated. Initial CT abdomen did not show any peripancreatic inflammation. Imaging did show patchy airspace opacities bilaterally. Creatinine 1.8. O2 sat: Hypoxic. She was treated with steroids. Repeat CT did reveal acute interstitial pancreatitis. No evidence of necrosis or collection. As per revised [place] classification, with no organ failure, no local or systemic complications. Does not drink alcohol. Status post cholecystectomy. Normal triglycerides. Concern was pancreatic malignancy. Autoimmune pancreatitis was ruled out. Was noted to have splenomegaly and platelet count of 90. Concern was undiagnosed cirrhosis, compensated, and portal hypertension. Doppler study did not reveal any thrombus in the portal venous system. Hospital course was complicated by acute kidney injury which resolved with IV hydration and improved oral intake. She still does not have an appetite. She still has symptoms of nausea and vomiting all the time. It has gotten better however she still not able to swallow solids. Even the liquids are hard to tolerate and sometimes come up. She has to take Zofran. She cannot tolerate Ensure nor Glucerna. She is trying to drink smoothies with protein powder in it along with some fruit. She has lost weight. She was 267 lb and now down to 221, since July. She feels exhausted. She has been noted to have mild pancytopenia since 08/17 5. She has been noted to be hypercalcemic. Since 1282-1249, calcium has been between 8.9 and 9.9. 07/27: Calcium 10.3. It has been fluctuating since then. Calcium level 09/30/20:11.8. Albumin: 2.3. Actual calcium: 13.6. She used to be on calcium supplements: Vitamin-D 2000 internationally units and calcium plus vitamin-D 500 daily. Stopped that a few months ago. CT scan done in the emergency showing possible acute pancreatitis with mildly elevated pancreatic enzymes. Hospial course: Acute pancreatitis, manifested by elevated lipasse, CT finding, high calcium--thought be induced by hypercalcemia. Patient was seen by GI and managed conservatively with full recovery clinically and is tolerating diet now. Moderate Hypercalcemia-- Secondary to multiple myeloma. Treated with IVF and High dose steroid (decadron 40 IV) daily for 4 days. Constipation--due to hypercalcmeia--Treted with bowel regimen, colace, Mirilax, Senna. Pancytopenia Secondary to Multiple myeloma bone [place] biopsy done pending result. UTI: UCx Proteus. Treated with Ceftriaxone D3, switched to PO Ceftin for 7 days. Mild protein malnutrition: Low albumin 1.6. Increase in diet. Initially, she had Hypoglycemia secondary to Diabetes type 2: Discontinued Lantus 10 units, but then sugars were very high due steroids, so resumed upon discharge. DVT PPX: Lovenox was held. ROS: Fatigue. No fever. No appetite. Weight loss. Occasional headache. No shortness of breath but does get chest pain. Complains of pain in the abdomen in the upper middle area. Nausea and vomiting. Heartburn. Constipation. No gross blood in the stools. Occasional diarrhea. Increased urinary frequency. Had UTI in July. Complains of pain in her right knee which she is due for a replacement. Elbows and shoulders. Takes Tylenol. Legs have become weak. She has to walk with the help of her walker/wheelchair. Feels depressed. FAMILY HISTORY: A sister had cancer of breast, colon and polycythemia. SOCIAL HISTORY: She worked at [employer]. . Has 2 children. Denies smoking. Denies alcohol. Review of Systems - Constitutional Reports system reviewed and no additional complaints, except as documented, Denies lack of energy, Denies malaise, Denies weight loss - Eyes Reports system reviewed and no additional complaints, except as documented - ENT Reports system reviewed and no additional complaints, except as documented - Cardiovascular Reports system reviewed and no additional complaints, except as documented - Respiratory Reports no additional respiratory complaints - Gastrointestinal Reports system reviewed and no additional complaints, except as documented, Denies abdominal pain, Denies change in bowel habits, Denies dyspepsia, Denies loose stools, Denies nausea - Genitourinary Reports no additional female genitourinary complaints - Musculoskeletal Reports system reviewed and no additional complaints, except as documented - Integumentary/Breasts Skin/Breast: Reports no additional skin complaints, Reports redness, Reports rash Comments: In the folds of the abdomen. - Neurologic Reports system reviewed and no additional complaints, except as documented, Reports headache(s), Reports weakness - Psychiatric Reports system reviewed and no additional complaints, except as documented - Endocrine Reports no additional endocrine complaints - Hematologic/Lymphatic Reports system reviewed and no additional complaints, except as documented - Allergic/Immunologic Reports system reviewed and no additional complaints, except as documented PMFSH Medical History: Medical History (Last Updated 01/11/21 @ 12:33 by Elvia Alvarez MD) Diabetes mellitus type 2, controlled, without complications Essential hypertension Hypercalcemia Hyperlipidemia, unspecified Hypoglycemia unawareness associated with type 2 diabetes mellitus Obstructive sleep apnea Pancytopenia Streptococcal pneumonia Subclinical hyperthyroidism Functional capacity: wheelchair bound Patient : No Family History: Family History (Last Reviewed 01/11/21 @ 12:32 by Elvia Alvarez MD) Father No problems noted. Mother Heart disease Brother Atrial fibrillation Brother Atrial fibrillation Brother Atrial fibrillation Surgical History: Surgical History (Last Reviewed 01/11/21 @ 12:32 by Elvia Alvarez MD) History of knee replacement History of left hip replacement Social History: Social History (Last Reviewed 01/11/21 @ 12:32 by Elvia Alvarez MD) Living Situation History: Household Members: Family Household Members Other:: 3 Housing: House Do you presently have visiting nurse or other home services: No Alcohol History: Alcohol intake: never Alcohol History Details: Alcohol intake frequency: does not drink Tobacco History: Patient Tobacco Use Status: Never used Tobacco Substance Use History: Use of substances other than those prescribed or required for medical reasons: No Advance Directives: Advance Directives Date on File: 10/09/20 Nutrition Assessment: Patient : No Occupation Assessmet: service: No Current occupational status: disabled Oncology Screenings - ECOG Performance Status ECOG Performance Status: 2 Home Medications and Allergies Current Medications: Current Medications Generic Name Dose Route Start Last Admin Trade Name Freq PRN Reason Stop Dose Admin Heparin Sodium (Porcine) 500 unit 01/26/21 00:00 Heparin Sodium,Porcine Flush 500 Unit/5 Ml Syringe IVFLUSH 01/26/21 23:59 ONCE DONAVAN Ondansetron HCl 16 mg in 50 mls @ 200 mls/hr 01/26/21 00:00 Zofran IV 01/26/21 23:59 ONCE DONAVAN Dexamethasone Sodium Phosphate 52 mls @ 208 mls/hr 01/26/21 00:00 20 mg/ Sodium Chloride IV 01/26/21 23:59 ONCE ONE Home Medications Medication Instructions Recorded Confirmed Type aspirin 81 mg chewable tablet 81 mg PO DAILY 04/22/20 01/26/21 History docusate sodium 100 mg capsule 100 mg PO BID PRN 04/22/20 01/26/21 History insulin aspart U-100 100 unit/mL 2 - 12 unit SUBCUT TID 04/22/20 01/26/21 History (3 mL) subcutaneous pen omeprazole 20 mg capsule,delayed 20 mg PO BID 04/22/20 01/26/21 History release polyethylene glycol 3350 [Miralax] 17 g PO DAILY PRN 10/06/20 01/26/21 History sennosides [senna] 8.6 mg PO BEDTIME PRN 10/09/20 01/26/21 History spironolactone 50 mg PO DAILY 01/05/21 01/26/21 History Allergies Allergy/AdvReac Type Severity Reaction Status Date / Time codeine [CODEINE] Allergy Intermediate NAUSEA & Verified 01/10/21 12:51 VOMITING, vomiting lisinopril [LISINOPRIL] Allergy Intermediate COUGH, Verified 01/10/21 12:51 Coughing sulfamethoxazole Allergy Intermediate RASH Verified 01/10/21 12:51 [From BACTRIM] Exam Vital signs: Vital Signs Temp 97.4 F 01/26/21 09:45 Pulse 89 01/26/21 09:45 Resp 18 01/26/21 09:45 BP 110/55 L 01/26/21 09:45 Pulse Ox 100 01/26/21 09:45 Intake & Output 01/25/21 01/26/21 01/26/21 18:59 06:59 18:59 Other: Weight 106 kg Golf Weight in Grams 214800 Weight 106 kg Body Mass Index 38.9 - Constitutional Present: moderate distress - Routine HEENT Exam Head: Present: normal inspection Eye: Present: normal appearance ENT: Present: mucous membranes moist - Routine Neck Exam Present: full ROM - Routine Respiratory Exam Present: CTAB - Routine Cardiovascular Exam Cardiovascular: Present: RRR, S1, S2 - Routine Abdominal Exam Present: nontender. Absent: tenderness - Routine Rectal Exam Patient deferred: digital exam - Routine Extremities Exam Present: nontender - Routine Back/Spine/Pelvis Exam Back/Spine: Present: full ROM - Routine Skin Exam Present: intact, rash Comments: In the abdominal folds - Routine Neurological Exam Present: alert, oriented X3 - Routine Psychiatric Exam Present: normal affect Data - Labs CBC & Chem 7: 01/26/21 10:05 01/26/21 10:05 Labs: 10/06/20 12:15 0.9 % Sodium Chloride [Ns] 1,000 ml IVCONT 500 mls/hr 10/06/20 12:25 Beta-2 Microglobulin, Serum Routine Complete Blood Count Man Dif Routine Comprehensive Met. Panel Routine Erythrocyte Sedimentation Rate Routine Immunofixation Pnl, Serum Routine [place]/Lambda Lt Ch,Free w rat Routine Laboratory Last Values WBC 2.4 X10*3/uL (4.8-10.8) L 10/06/20 12:25 RBC 3.46 X10*6/uL (4.20-5.50) L 10/06/20 12:25 Hgb 10.8 g/dl (12.0-16.0) L 10/06/20 12:25 Hct 33.7 % (37-47) L 10/06/20 12:25 MCV 97.4 fL (80-98) 10/06/20 12:25 MCH 31.2 pg (27.0-33.0) 10/06/20 12:25 MCHC 32.0 g/dl (31.0-35.0) 10/06/20 12:25 RDW 15.6 % (11.0-16.0) 10/06/20 12:25 Plt Count 94 X10*3/uL (160-400) L 10/06/20 12:25 MPV 11.0 fL (9.4-12.3) 10/06/20 12:25 Absolute Nucleated RBC 0.000 X10*3/uL (0.0-0.012) 10/06/20 12:25 Nucleated RBC % (auto) 0.0 /100WBC (0.0-0.2) 10/06/20 12:25 Neutrophils % (Manual) 42 % (45-73) L 10/06/20 12:25 Band Neutrophils % 0 % (3-5) L 10/06/20 12:25 Lymphocytes % (Manual) 50 % (20-40) H 10/06/20 12:25 Atypical Lymphs % (Man) 3 % (0-6) 10/06/20 12:25 Monocytes % (Manual) 5 % (2-11) 10/06/20 12:25 Abs Neuts (Manual) 1.0 X10*3/uL (2.2-7.9) L 10/06/20 12:25 Lymphocytes # (Manual) 1.2 X10*3/uL (0.6-4.8) 10/06/20 12:25 Atyp Lymphs # (Manual) 0.1 x10*3/uL 10/06/20 12:25 Monocytes # (Manual) 0.1 X10*3/uL (0.0-1.2) 10/06/20 12:25 Platelet Estimate DECREASED (NORMAL) 10/06/20 12:25 Large Platelets PRESENT 10/06/20 12:25 Plt Morphology Comment NOTED 10/06/20 12:25 RBC Morphology NORMAL 10/06/20 12:25 ESR 18 MM/HR (0-20) 10/06/20 12:25 Sodium 136 mmol/L (135-145) 10/06/20 12:25 Potassium 3.7 mmol/L (3.3-5.1) 10/06/20 12:25 Chloride 107 mmol/L (96-108) 10/06/20 12:25 Carbon Dioxide 22 mmol/L (22-29) 10/06/20 12:25 Anion Gap 11 (12-20) L 10/06/20 12:25 BUN 12 mg/dL (9-16) 10/06/20 12:25 Creatinine 1.28 mg/dL (0.5-1.4) 10/06/20 12:25 Estim Creat Clear Calc TNP 10/06/20 12:25 Estimated GFR 41 10/06/20 12:25 Random Glucose 130 mg/dL (60-115) H D 10/06/20 12:25 Calcium 11.2 mg/dL (8.4-10.2) H 10/06/20 12:25 Total Bilirubin 0.9 mg/dL (0.0-1.0) 10/06/20 12:25 AST 22 U/L (5-31) 10/06/20 12:25 ALT 13 U/L (0-31) 10/06/20 12:25 Alkaline Phosphatase 59 U/L (39-117) 10/06/20 12:25 Total Protein 7.7 g/dL (6.5-8.0) 10/06/20 12:25 Albumin 2.1 g/dL (3.5-5.0) L 10/06/20 12:25 Mqwr-[id number] 22.59 mg/L (< OR = 2.51) H 10/06/20 12:25 IgG Total 4482 mg/dL (600-1540) H 10/06/20 12:25 IgA Total 21 mg/dL (70-320) L 10/06/20 12:25 IgM 27 mg/dL (50-300) L 10/06/20 12:25 ASHA Interpretation SEE NOTE 10/06/20 12:25 Free [place] LC, Quant 6036.3 mg/L (3.3-19.4) H 10/06/20 12:25 Free Lambda LC, Quant 10.3 mg/L (5.7-26.3) 10/06/20 12:25 Free [place]/Lambda Ratio 586.05 (0.26-1.65) H 10/06/20 12:25 Progress Note: A/P (1) Hypercalcemia Status: Acute (2) Multiple myeloma Status: Acute Assessment and plan: DATABASE: 10/15: CBC: WBC 1.7, HGB 9, HCT 27.5, PLT 69. CMP: Lytes: WNL, glue to 79, BUN 23, FRONT OFFICE AGENT 1.08. Venkat 9.3. LFTs: 0.8/39/20/14. This is a pleasant 75-year-old lady with a history of her diabetes, recent COVID infection back in June, complicated by interstitial pancreatitis, then presented with hypercalcemia. She had an SIEP done back in 2018: IgG: To 637, IgA: 66, IgM: 67. IgG kappa monoclonal band present. Urine IEP: Showed free light chains. Given the clinical picture, most likely she has multiple myeloma. I proceeded with further evaluation. I rechecked SIEP: IgG 4482, IgA 21, IgM 27. IgG kappa monoclonal band present. Free light chains present. Serum free light chain ratio: 586.05. Checked beta 2 microglobulin level for prognosis. (22.2.) l checked skeletal survey on10/06: No fracture or definite bony lesion. Osteopenia versus lucency in the right medial femoral shaft just inferior to the lesser trochanter and left distal femoral shaft. Left hip and knee replacements. Degenerative changes of the spine. Bone marrow exam from 10/14: Consistent with plasma cell myeloma. Plasma cells are 60-70% of marrow cellularity. Myeloma FISH panel: Dup(1q), Del (13), Del(17p), and t(4;14) were all detected.. l tried to proceed with a PET scan for further evaluation. It has been denied. Will do appear to appear. l tried to arrange for Denosumab, for hypercalcemia and multiple myeloma. However the insurance plan did not cover. I tried to do Peer to Peer, however the physician approved Zometa.Her dose comes to 3.5 mg. Will arrange for it later in the week. CT scan of the right femur revealed: No fracture. No bone destruction. No focal bone lesion. No abnormal periosteal reaction. 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 Small joint effusion with suprapatellar fossa the right knee. Mild degenerative change of the right hip with joint narrowing. No soft tissue mass or focal abnormality. Ultrasound of the right upper extremity revealed: There is occlusive thrombus in the distal basilic vein. She was advised to use warm compresses on it. l arranged for RVD based regimen. She has been started on it. She is here to receive the Velcade and Zometa today. There are other regimens recommended including daratumumab/lenalidomide and Decadron. And carfilzomib/Lenalidomide and Decadron. However, this is the only regimen shown to have overall survival benefit, at this point. She complains of tenderness and swelling right upper extremity, medially around the elbow area. She has generalized anasarca. She still has nausea, has not been able to keep much down. Her IgG level her declined: On 10/06 it was 4482. On 10/23 it was 2933. Serum free light chain ratio: Was 586 in October, now down to 341. She is a bit decondition but otherwise she is doing well. She has been tolerating the chemotherapy. Her calcium is a bit low. PLAN: She was advised to make sure she takes the oral calcium twice a day at home. Rest of the p.o. meds: Revlimid, Mepron, and Valtrex are given orally. She is now able to tolerate it. The plan from the discharge summary from [facility] revealed that she was supposed to have been endoscopic ultrasound for further evaluation, to assess for malignancy, in few weeks. She saw Dr. Marques's office for on , their plan is to simply observe her, for now. Will arrange for physical therapy and VNA at home, to help with strengthening. I gave her Lotrimin cream to apply for the intertrigo. Thanks, CC: Dr. Cowart. Dr. Dr. Givens. Dr. Soliman. - Time Spent With Patient Time Spent with Patient (in minutes): 35
[2021-01-26 11:12] LABS: SLIDE REVIEW VERIFIED
[2021-01-26 11:21] LABS: Alanine Aminotransferase 15 U/L (0-31); Albumin Level 1.6 g/dL (3.5-5.0); Alkaline Phosphatase 47 U/L (39-117); Anion Gap 11 (12-20); Aspartate Amino Transferase 18 U/L (5-31); Blood Urea Nitrogen 10 mg/dL (9-16); Carbon Dioxide 18 mmol/L (22-29); Chloride 112 mmol/L (96-108); Creatinine Clr Calc Pharmacy 68.6; Estimated Glomerular Filt Rate > 60; Glucose Random 255 mg/dL (60-115); Potassium 3.7 mmol/L (3.3-5.1); Sodium 137 mmol/L (135-145); Total Protein 5.7 g/dL (6.5-8.0)
[2021-01-26] MEDS: ondansetron HCL/NS 16 MG/50 ML PIGGYBACK 200 MG IV (11:44)
[2021-01-26] MEDS: Heparin Sodium,Porcine Flush 500 UNIT/5 ML SYRINGE IVFLUSH (11:44)
--- NOTE | 2021-01-26 13:06 | MHC.HEMONC ---
pt will start po calcium. vna referral for pt
[2021-01-28 23:52] LABS: Kappa/Lambda Lt Ch Free Ratio 341.16 (0.26-1.65); Lambda Light Chain, Free Serum 6.3 mg/L (5.7-26.3)
[2021-02-02 10:04] VITALS: BMI 38.2
[2021-02-02 10:06] VITALS: BP 111/60; PULSE 94; RESP 20; TEMP 36.4; O2SAT 98
[2021-02-02 10:52] LABS: Eosinophils Percent Auto 2.6 % (0-4); Hematocrit 26.8 % (37-47); Hemoglobin 8.4 g/dl (12.0-16.0); Lymphocytes Absolute Auto 0.6 X10*3/uL (1.2-4.9); Lymphocytes Percent Auto 38.8 % (20-40); MANUAL DIFF FLAG SCAN; Mean Corpuscular HGB Conc 31.3 g/dl (31.0-35.0); Mean Corpuscular Hemoglobin 33.7 pg (27.0-33.0); Mean Corpuscular Volume 107.6 fL (80-98); Monocytes Absolute Auto 0.2 X10*3/uL (0.1-1.2); Monocytes Percent Auto 14.5 % (2-11); Neutrophils Absolute Auto 0.6 X10*3/uL (2.0-8.3); Neutrophils Percent Auto 42.1 % (45-73); Red Blood Count 2.49 X10*6/uL (4.20-5.50); Red Cell Distribution Width 16.8 % (11.0-16.0); SCAN SMEAR FLAG 1
[2021-02-02 10:53] LABS: Platelet Count 62 X10*3/uL (160-400); White Blood Count 1.5 X10*3/uL (4.8-10.8)
[2021-02-02 10:54] LABS: Mean Platelet Volume 12.5 fL (9.4-12.3)
[2021-02-02 11:13] LABS: Alanine Aminotransferase 17 U/L (0-31); Albumin Level 1.7 g/dL (3.5-5.0); Alkaline Phosphatase 51 U/L (39-117); Anion Gap 10 (12-20); Aspartate Amino Transferase 19 U/L (5-31); Blood Urea Nitrogen 10 mg/dL (9-16); Calcium 6.7 mg/dL (8.4-10.2); Carbon Dioxide 18 mmol/L (22-29); Chloride 114 mmol/L (96-108); Creatinine Clr Calc Pharmacy 67.9; Estimated Glomerular Filt Rate > 60; Glucose Random 153 mg/dL (60-115); Potassium 3.6 mmol/L (3.3-5.1); Sodium 138 mmol/L (135-145); Total Protein 5.2 g/dL (6.5-8.0)
[2021-02-02 11:23] LABS: SLIDE REVIEW VERIFIED
[2021-02-02] MEDS: Heparin Sodium,Porcine Flush 500 UNIT/5 ML SYRINGE IVFLUSH (11:51)
[2021-02-02] MEDS: ondansetron HCL/NS 16 MG/50 ML PIGGYBACK 200 MG IV (11:51)
--- NOTE | 2021-02-02 13:05 | MHC.HEMONC ---
dose redused for velcade due to low anc. ca continues to be low as well per dr stout pt should take 3 tablets of po calcium.
[2021-02-02 13:51] LABS: IgA 20 mg/dL (70-320); IgG 3039 mg/dL (600-1540); IgM 14 mg/dL (50-300)
--- NOTE | 2021-02-08 12:32 | MHC.HEMONC ---
[facility] auth # [id number] valid 02/08/21-03/11/21
[2021-02-09 09:50] VITALS: BP 122/64; PULSE 101; RESP 18; TEMP 35.9; O2SAT 99; BMI 38.7
[2021-02-09 10:27] LABS: Basophils Percent Auto 2.2 % (0-2); Eosinophils Percent Auto 2.2 % (0-4); Hematocrit 27.8 % (37-47); Hemoglobin 8.9 g/dl (12.0-16.0); Imm Gran Abs Auto 0.01 X10*3/uL (0.00-0.03); Imm Gran Pct Auto 0.7 % (0.0-0.4); Lymphocytes Absolute Auto 0.7 X10*3/uL (1.2-4.9); Lymphocytes Percent Auto 47.8 % (20-40); MANUAL DIFF FLAG SCAN; Mean Corpuscular Hemoglobin 34.4 pg (27.0-33.0); Mean Corpuscular Volume 107.3 fL (80-98); Monocytes Absolute Auto 0.2 X10*3/uL (0.1-1.2); Monocytes Percent Auto 12.3 % (2-11); Neutrophils Absolute Auto 0.5 X10*3/uL (2.0-8.3); Neutrophils Percent Auto 34.8 % (45-73); Red Blood Count 2.59 X10*6/uL (4.20-5.50); SCAN SMEAR FLAG 1
[2021-02-09 10:40] LABS: Platelet Count 77 X10*3/uL (160-400); White Blood Count 1.4 X10*3/uL (4.8-10.8)
[2021-02-09 10:50] LABS: Alanine Aminotransferase 21 U/L (0-31); Albumin Level 1.7 g/dL (3.5-5.0); Alkaline Phosphatase 52 U/L (39-117); Anion Gap 11 (12-20); Aspartate Amino Transferase 22 U/L (5-31); Bilirubin Total 0.7 mg/dL (0.0-1.0); Blood Urea Nitrogen 13 mg/dL (9-16); Calcium 7.7 mg/dL (8.4-10.2); Carbon Dioxide 16 mmol/L (22-29); Chloride 115 mmol/L (96-108); Creatinine Clr Calc Pharmacy 57.7; Estimated Glomerular Filt Rate 52; Glucose Random 292 mg/dL (60-115); Potassium 3.8 mmol/L (3.3-5.1); Sodium 138 mmol/L (135-145); Total Protein 5.5 g/dL (6.5-8.0)
[2021-02-09 11:01] LABS: SLIDE REVIEW VERIFIED
[2021-02-09] MEDS: Heparin Sodium,Porcine Flush 500 UNIT/5 ML SYRINGE IVFLUSH (12:20)
--- NOTE | 2021-02-09 13:23 | MHC.HEMONC ---
anc still low velcade reduced again. Hillary working on PA for granix. dr mendez will still need to order but dr stout suggest 480mcg on her off week of revlimid.
--- NOTE | 2021-02-09 14:22 | HO.HEMONCPA ---
Addendum entered by Hillary Linares 02/09/21 14:36: NO PA REQUIRED FOR GRANIX ([id number]). RESTRICTIONS - 10 VIALS OF THE DRUG COVERED UNDER HEALTH PLAN FOR 30 DAYS FROM START DATE. Original Note: NO PA REQUIRED FOR GRANIX ([id number]). RESTRICTIONS - DRUG COVERED UNDER HEALTH PLAN FOR 30 DAYS. 10 VIALS ARE APPROVED. DOS 02/09/21 to 03/12/21
--- NOTE | 2021-02-15 09:47 | MHC.HEMONC ---
Pt called unit stating she injured her right foot. States she dropped a plastic toilet seat on right foot. States right foot is swollen and she is unable to weight bear on foot. Dr Raman notified. Plan for pt to be seen in ED for evaluation.. Pt called and notified to go to ED.
[2021-02-16 10:42] LABS: Hematocrit 26.5 % (37-47); Hemoglobin 8.4 g/dl (12.0-16.0); Mean Corpuscular HGB Conc 31.7 g/dl (31.0-35.0); Mean Corpuscular Hemoglobin 33.7 pg (27.0-33.0); Mean Corpuscular Volume 106.4 fL (80-98); Mean Platelet Volume 11.8 fL (9.4-12.3); Red Blood Count 2.49 X10*6/uL (4.20-5.50); Red Cell Distribution Width 16.4 % (11.0-16.0)
[2021-02-16 10:47] LABS: White Blood Count 1.9 X10*3/uL (4.8-10.8)
[2021-02-16 10:48] LABS: Platelet Count 96 X10*3/uL (160-400)
[2021-02-16 11:08] LABS: Alanine Aminotransferase 13 U/L (0-31); Albumin Level 1.5 g/dL (3.5-5.0); Alkaline Phosphatase 56 U/L (39-117); Anion Gap 11 (12-20); Aspartate Amino Transferase 16 U/L (5-31); Bilirubin Total 0.8 mg/dL (0.0-1.0); Blood Urea Nitrogen 9 mg/dL (9-16); Calcium 6.8 mg/dL (8.4-10.2); Carbon Dioxide 18 mmol/L (22-29); Chloride 112 mmol/L (96-108); Creatinine Clr Calc Pharmacy 66.1; Estimated Glomerular Filt Rate > 60; Glucose Random 275 mg/dL (60-115); Potassium 3.6 mmol/L (3.3-5.1); Sodium 137 mmol/L (135-145); Total Protein 5.3 g/dL (6.5-8.0)
[2021-02-16 11:43] LABS: Band Neutrophils Percent 1 % (3-5); Eosinophils Absolute Manual 0.1 X10*3/UL (0.0-0.8); Eosinophils Percent Manual 3 % (0-4); Lymphocytes Absolute Manual 0.5 X10*3/uL (0.6-4.8); Lymphocytes Percent Manual 28 % (20-40); Monocytes Absolute Manual 0.1 X10*3/uL (0.0-1.2); Monocytes Percent Manual 3 % (2-11); Neutrophils Absolute Manual 1.3 X10*3/uL (2.2-7.9); Neutrophils Percent Manual 65 % (45-73)
[2021-02-16 11:45] LABS: Hypersegmented Neutrophils PRESENT; Large Platelet PRESENT; Platelet Estimate DECREASED (NORMAL); Platelet Morphology Comment NORMAL
[2021-02-16 11:48] LABS: RBC Morphology NORMAL
[2021-02-16] MEDS: Heparin Sodium,Porcine Flush 500 UNIT/5 ML SYRINGE IVFLUSH (13:27)
--- NOTE | 2021-02-22 09:29 | MHC.HEMONC ---
pt dtr called on voicemail to say that pt had diarrhea over weekend and has abdominal pain on right side . I called pt back and she said diarrhea does happen from time to time . She said she doesn't usually treat with Immodium and lets it take it's course . She also said that her abdominal pain is due to redness and moisture under abd folds. She has Nystatin powder and I suggested that with abd pad. I said open to air might help. She will take Immodium for diarrhea and we will see her for treatment tomorrow. She is comfortable with plan. Dr Raman aware.
--- NOTE | 2021-02-22 13:50 | MHC.HEMONC ---
pt called with fever 100.4. She did take Immodium for loose stools. I discussed fever with Dr Raman and she would like her evaluated in ER due to recent hospitalizations with neutropenia. Dr Raman to call MD in ER.
--- NOTE | 2021-02-23 14:58 | MHC.HEMONC ---
Pt cancelled today for chemo therapy secondary to hospitalization. Chemotherapy rescheduled.
[2021-03-02 10:46] LABS: Basophils Percent Auto 2.9 % (0-2); Eosinophils Percent Auto 0.7 % (0-4); Hematocrit 28.1 % (37-47); Imm Gran Abs Auto 0.01 X10*3/uL (0.00-0.03); Imm Gran Pct Auto 0.7 % (0.0-0.4); Lymphocytes Absolute Auto 0.7 X10*3/uL (1.2-4.9); Lymphocytes Percent Auto 49.6 % (20-40); MANUAL DIFF FLAG SCAN; Mean Corpuscular Hemoglobin 32.7 pg (27.0-33.0); Mean Corpuscular Volume 102.2 fL (80-98); Mean Platelet Volume 12.3 fL (9.4-12.3); Monocytes Absolute Auto 0.1 X10*3/uL (0.1-1.2); Monocytes Percent Auto 10.2 % (2-11); Neutrophils Absolute Auto 0.5 X10*3/uL (2.0-8.3); Neutrophils Percent Auto 35.9 % (45-73); Red Blood Count 2.75 X10*6/uL (4.20-5.50); Red Cell Distribution Width 18.2 % (11.0-16.0); SCAN SMEAR FLAG 1; White Blood Count 1.4 X10*3/uL (4.8-10.8)
[2021-03-02 10:47] LABS: Platelet Count 56 X10*3/uL (160-400)
[2021-03-02 11:36] LABS: Alanine Aminotransferase 18 U/L (0-31); Albumin Level 1.2 g/dL (3.5-5.0); Alkaline Phosphatase 53 U/L (39-117); Anion Gap 7 (12-20); Aspartate Amino Transferase 11 U/L (5-31); Bilirubin Total 0.6 mg/dL (0.0-1.0); Blood Urea Nitrogen 11 mg/dL (9-16); Calcium 7.4 mg/dL (8.4-10.2); Carbon Dioxide 16 mmol/L (22-29); Chloride 117 mmol/L (96-108); Creatinine Clr Calc Pharmacy 56.6; Estimated Glomerular Filt Rate 51; Glucose Random 227 mg/dL (60-115); Potassium 4.2 mmol/L (3.3-5.1); Sodium 136 mmol/L (135-145); Total Protein 6.1 g/dL (6.5-8.0)
--- NOTE | 2021-03-02 11:57 | P.PNHO_ITS ---
Medical Summary - Medical Summary Date of Service: 03/02/21 Chief complaint: Anal pain Medical Summary: DIAGNOSIS: 1. Hypercalcemia. 2. Multiple myeloma. CURRENT THERAPY: Here to receive RVD. Interval History Interval history: Patient is here for scheduled treatment. However she is not doing well. She reports intense pain in her anal region from her hemorrhoid. There is no active bleeding but intermittently there is blood when she wipes. She was recently admitted for neutropenic fever, she just finished course of Ceftin. She has chronic diarrhea. No fever or chills. No nausea or emesis. She feels weak and rather tired. She is unable to walk or sit because of hemorrhoids. Review of Systems - Neurologic Reports no additional neurologic complaints, Reports headache(s), Reports weakness PMFSH Medical History: Medical History (Last Reviewed 02/23/21 @ 07:04 by Dirk Rich MD) Diabetes mellitus type 2, controlled, without complications Essential hypertension Hypercalcemia Hyperlipidemia, unspecified Hypoglycemia unawareness associated with type 2 diabetes mellitus Obstructive sleep apnea Pancytopenia Streptococcal pneumonia Subclinical hyperthyroidism Functional capacity: wheelchair bound Family History: Family History (Last Reviewed 02/23/21 @ 07:04 by Dirk Rich MD) Father No problems noted. Mother Heart disease Brother Atrial fibrillation Brother Atrial fibrillation Brother Atrial fibrillation Surgical History: Surgical History (Last Reviewed 02/23/21 @ 07:04 by Dirk Rich MD) History of knee replacement History of left hip replacement Social History: Social History (Last Reviewed 02/23/21 @ 07:04 by Dirk Rich MD) Living Situation History: Household Members: Family Household Members Other:: 3 Housing: Unknown / Unable to asses Do you presently have visiting nurse or other home services: No Alcohol History: Alcohol intake: never Alcohol History Details: Alcohol intake frequency: does not drink Tobacco History: Patient Tobacco Use Status: Never used Tobacco Substance Use History: Use of substances other than those prescribed or required for medical reasons : No Advance Directives: Advance Directives Date on File: 10/09/20 Nutrition Assessment: Patient : No Occupation Assessmet: service: No Current occupational status: disabled Home Medications and Allergies Current Medications: Current Medications Generic Name Dose Route Start Last Admin Trade Name Freq PRN Reason Stop Dose Admin Heparin Sodium (Porcine) 500 unit 03/02/21 00:00 Heparin Sodium,Porcine Flush 500 Unit/5 Ml Syringe IVFLUSH 03/02/21 23:59 ONCE DONAVAN Ondansetron HCl 16 mg in 50 mls @ 200 mls/hr 03/02/21 00:00 Zofran IV 03/02/21 23:59 ONCE DONAVAN Home Medications Medication Instructions Recorded Confirmed Type aspirin 81 mg chewable tablet 81 mg PO DAILY 04/22/20 02/22/21 History insulin aspart U-100 100 unit/mL 4 - 24 unit SUBCUT TID 04/22/20 02/22/21 History (3 mL) subcutaneous pen omeprazole 20 mg capsule,delayed 20 mg PO BID 04/22/20 02/22/21 History release calcium carbonate 500 mg (1,250 1 tab PO BID 02/02/21 02/22/21 History mg)-vitamin D3 125 unit tablet duloxetine 20 mg capsule,delayed 1 cap PO DAILY 02/22/21 02/22/21 History release potassium chloride 20 mEq 40 meq PO DAILY 02/22/21 02/22/21 History tablet,extended release Allergies Allergy/AdvReac Type Severity Reaction Status Date / Time codeine [CODEINE] Allergy Intermediate NAUSEA & Verified 02/22/21 14:30 VOMITING, vomiting lisinopril [LISINOPRIL] Allergy Intermediate COUGH, Verified 02/22/21 14:30 Coughing sulfamethoxazole Allergy Intermediate RASH Verified 02/22/21 14:30 [From BACTRIM] Exam Vital signs: Vital Signs Temp 96.6 F L 02/09/21 09:50 Pulse 101 H 02/09/21 09:50 Resp 18 02/09/21 09:50 BP 122/64 02/09/21 09:50 Pulse Ox 99 02/09/21 09:50 Weight 105.5 kg Body Mass Index 38.7 - Constitutional Present: moderate distress - Routine HEENT Exam Head: Present: normal inspection - Routine Neck Exam Present: full ROM - Routine Respiratory Exam Present: CTAB - Routine Cardiovascular Exam Cardiovascular: Present: RRR, S1, S2 - Routine Abdominal Exam Present: nontender. Absent: tenderness - Routine Rectal Exam Patient deferred: digital exam Digital: Present: hemorrhoid - Routine Extremities Exam Present: nontender - Routine Back/Spine/Pelvis Exam Back/Spine: Present: full ROM - Routine Skin Exam Present: intact, rash - Routine Neurological Exam Present: alert, oriented X3 - Routine Psychiatric Exam Present: normal affect Data - Labs CBC & Chem 7: 03/02/21 10:30 03/02/21 10:30 Labs: 10/06/20 12:15 0.9 % Sodium Chloride [Ns] 1,000 ml IVCONT 500 mls/hr 10/06/20 12:25 Beta-2 Microglobulin, Serum Routine Complete Blood Count Man Dif Routine Comprehensive Met. Panel Routine Erythrocyte Sedimentation Rate Routine Immunofixation Pnl, Serum Routine [place]/Lambda Lt Ch,Free w rat Routine Laboratory Last Values WBC 2.4 X10*3/uL (4.8-10.8) L 10/06/20 12:25 RBC 3.46 X10*6/uL (4.20-5.50) L 10/06/20 12:25 Hgb 10.8 g/dl (12.0-16.0) L 10/06/20 12:25 Hct 33.7 % (37-47) L 10/06/20 12:25 MCV 97.4 fL (80-98) 10/06/20 12:25 MCH 31.2 pg (27.0-33.0) 10/06/20 12:25 MCHC 32.0 g/dl (31.0-35.0) 10/06/20 12:25 RDW 15.6 % (11.0-16.0) 10/06/20 12:25 Plt Count 94 X10*3/uL (160-400) L 10/06/20 12:25 MPV 11.0 fL (9.4-12.3) 10/06/20 12:25 Absolute Nucleated RBC 0.000 X10*3/uL (0.0-0.012) 10/06/20 12:25 Nucleated RBC % (auto) 0.0 /100WBC (0.0-0.2) 10/06/20 12:25 Neutrophils % (Manual) 42 % (45-73) L 10/06/20 12:25 Band Neutrophils % 0 % (3-5) L 10/06/20 12:25 Lymphocytes % (Manual) 50 % (20-40) H 10/06/20 12:25 Atypical Lymphs % (Man) 3 % (0-6) 10/06/20 12:25 Monocytes % (Manual) 5 % (2-11) 10/06/20 12:25 Abs Neuts (Manual) 1.0 X10*3/uL (2.2-7.9) L 10/06/20 12:25 Lymphocytes # (Manual) 1.2 X10*3/uL (0.6-4.8) 10/06/20 12:25 Atyp Lymphs # (Manual) 0.1 x10*3/uL 10/06/20 12:25 Monocytes # (Manual) 0.1 X10*3/uL (0.0-1.2) 10/06/20 12:25 Platelet Estimate DECREASED (NORMAL) 10/06/20 12:25 Large Platelets PRESENT 10/06/20 12:25 Plt Morphology Comment NOTED 10/06/20 12:25 RBC Morphology NORMAL 10/06/20 12:25 ESR 18 MM/HR (0-20) 10/06/20 12:25 Sodium 136 mmol/L (135-145) 10/06/20 12:25 Potassium 3.7 mmol/L (3.3-5.1) 10/06/20 12:25 Chloride 107 mmol/L (96-108) 10/06/20 12:25 Carbon Dioxide 22 mmol/L (22-29) 10/06/20 12:25 Anion Gap 11 (12-20) L 10/06/20 12:25 BUN 12 mg/dL (9-16) 10/06/20 12:25 Creatinine 1.28 mg/dL (0.5-1.4) 10/06/20 12:25 Estim Creat Clear Calc TNP 10/06/20 12:25 Estimated GFR 41 10/06/20 12:25 Random Glucose 130 mg/dL (60-115) H D 10/06/20 12:25 Calcium 11.2 mg/dL (8.4-10.2) H 10/06/20 12:25 Total Bilirubin 0.9 mg/dL (0.0-1.0) 10/06/20 12:25 AST 22 U/L (5-31) 10/06/20 12:25 ALT 13 U/L (0-31) 10/06/20 12:25 Alkaline Phosphatase 59 U/L (39-117) 10/06/20 12:25 Total Protein 7.7 g/dL (6.5-8.0) 10/06/20 12:25 Albumin 2.1 g/dL (3.5-5.0) L 10/06/20 12:25 [place]-3-Gtvvrbbpmjtqp 22.59 mg/L (< OR = 2.51) H 10/06/20 12:25 IgG Total 4482 mg/dL (600-1540) H 10/06/20 12:25 IgA Total 21 mg/dL (70-320) L 10/06/20 12:25 IgM 27 mg/dL (50-300) L 10/06/20 12:25 ASHA Interpretation SEE NOTE 10/06/20 12:25 Free [place] LC, Quant 6036.3 mg/L (3.3-19.4) H 10/06/20 12:25 Free Lambda LC, Quant 10.3 mg/L (5.7-26.3) 10/06/20 12:25 Free [place]/Lambda Ratio 586.05 (0.26-1.65) H 10/06/20 12:25 Progress Note: A/P (1) Multiple myeloma Status: Chronic Assessment and plan: 1. This is a pleasant 75-year-old woman with multiple myeloma receiving treatment with RVD regimen. She was recently hospitalized with neutropenic fever. She was here for treatment but is complaining of severe anal pain because of rectal hemorrhoid. She is unable to walk or sit in a chair because of this. Exam revealed prolapsed external hemorrhoid that was not bleeding, no open areas or redness noted. I have prescribed Anusol/hydrocortisone cream as well as Sitz baths. Send stool for C diff. Hold Velcade today as she is still neutropenic. Administer Granix. Follow-up in 1 week. - Time Spent With Patient Time Spent with Patient (in minutes): 15
[2021-03-02] MEDS: Heparin Sodium,Porcine Flush 500 UNIT/5 ML SYRINGE IVFLUSH (12:26)
[2021-03-02 13:13] LABS: SLIDE REVIEW VERIFIED
--- NOTE | 2021-03-02 14:32 | MHC.HEMONC ---
pt attended for chemo- held due to pt not feeling well since discharge, pt still has diarrhea and c/o hemorrhoids- dr alicia examined.pt anc 0.5 dr Alicia spoke to pt and decided that it would be better to take a break from chemo this week as well. granix given. pt sent to er for placment daughter state she can not take care of her at home.
[2021-03-03 13:47] LABS: Beta-2 Microglobulin, Serum 13.84 mg/L (< OR = 2.51)
--- NOTE | 2021-03-06 15:20 | MHC.HEMONC ---
[facility] Auth #[id number]. Valid 03/06/21-04/06/21
--- NOTE | 2021-03-15 16:41 | MHC.HEMONC ---
Pt seen in [facility]. Port de accessed and re accessed with #[id number]. Blood return noted, flushed with N/S. Patent at this time. Pt states she is going to rehab soon.
--- NOTE | 2021-03-26 15:37 | MHC.HEMONC ---
spoke to pt who is rehabilitating at [facility]. She is feeling better but still having some mobility issues. She anticipates being there maybe a week more or so. Hillary is working on PA for new treatment with Carfilzomib and Darzalex FASTPRO. I told pt we will call her next week to see how she is doing.
--- NOTE | 2021-03-26 16:25 | HO.HEMONCPA ---
PA FOR DARZALEX FASPRO APPROVED. AUTH#[id number].DOS - 03/29/21 to 09/24/2021. PA FOR KYPROLIS(CARFILZOMIB) [id number] APPROVED. AUTH#[id number]. DOS -03/29/21 to 09/24/2021. DOCUMENTS SCANNED IN THE CHART.
--- NOTE | 2021-04-02 16:09 | MHC.HEMONC ---
spoke with SW at [facility]. Pt is still actively in PT and working on transfers. Per ALVARO, it is uncertain when D/C will be. She will contact me on Monday to update me on insurance coverage for both Rehab and possible chemo. I did express some urgency on getting her back in treatment. Dr Raman updated.
--- NOTE | 2021-04-06 16:05 | MHC.HEMONC ---
I tried to reach pt at [facility] today but she did not answer. I called her dtr, Jenny and she told me that there was going to be a family meeting with Staff on Monday to discuss discharge planning. Pt is still weak and receiving PT. I told her that we are awaiting [facility] call to determine if pt could receive outpatient chemo while receiving Rehab there. She will convey all of this at meeting Monday and will follow up with me. She does not feel she can care for the patient at this time.
--- NOTE | 2021-04-07 10:55 | MHC.HEMONC ---
Pt. called to inform RNs regarding her transportation from rehab facility to dept. Pt reached out [facility], and is waiting on a response from the [facility]. Pt will call back with response from [facility].
--- NOTE | 2021-04-07 12:34 | HO.HEMONCPA ---
NO PA REQUIRED FOR ALOXI ([id number]) IF ADMINISTERED EVERY TWO WEEKS. DOCUMENT SCANNED IN THE CHART.
--- NOTE | 2021-04-12 13:18 | MHC.HEMONC ---
pt will have f/u changed to telehealth on per Dr Raman. According to pt dtr, she will be D/C tomorrow from [facility] and is still unable to tolerate w/c transportation and is incontinent of stool. Pt dtr aware of plan. If pt needs to be seen in Clinic at some point we will fill out PA for transportation.
--- NOTE | 2021-04-15 17:29 | HO.HEMONCTE1 ---
[facility] Telehealth - Telehealth Location of Provider rendering services: Hem./onc. Location of Patient: Home. Patient Identification confirmed using: Name, : Yes Telehealth Method: Via telephone. Patient verbally consented to treatment: Yes. Patient verbally consented to billing insurance company: Yes Patient informed of any privacy concerns related to visit: Yes Medical Summary - Medical Summary Date of Service: 04/15/21 Chief complaint: F/u for multiple myeloma. Medical Summary: DIAGNOSIS: 1. Hypercalcemia. 2. Multiple myeloma. CURRENT THERAPY: Was on RVD. Interval History Interval history: Klaudia Dow is a pleasant 75 year old lady, with whom a tele visit was held. She just came back home on Monday from rehab. She is not feeling well. Her energy level has declined. She has not been moving around much. She has to be lifted by Eve lift. She denies any abdominal pain nausea or vomiting. Her bowels are working. She has loose stools. No substance to it. 5 - 7 times a day. Denies gross blood in the stools. Her appetite is good. eating 3 meals a day. Her weight has gone down. She has noticed a rash in the folds of her belly. She is in good spirits. Rest of the review of systems is unremarkable. Notes from 11/10: She tells me that she was admitted to the hospital last week. She just got discharged the day before. She presented with abdominal pain, nausea and vomiting the week before. This worsened. She felt tired and lethargic. CT scan of the abdomen pelvis revealed:: * Findings compatible with acute uncomplicated edematous pancreatitis, similar in appearance to prior. * Diffuse hepatic steatosis. Mild anasarca. * Pancolonic diverticulosis without evidence of diverticulitis. * Mild splenomegaly. Hospital course: Patient was admitted with intractable nausea and vomitting likely related to pancreatitis. Other than that, work up was essentially unremarkable. Her electrolytes have been unremarkable. She was treated with antiemtics, hydration and slowly her diet was advanced and is tolerating regular diet now. She will be discharge with Zofran, reglan PRN and is planned to have chemotherapy 11/10. This may cause additional symptoms in the shourt term but ultimately will help in the long run. CT scan of the right femur revealed: No fracture. No bone destruction. No focal bone lesion. No abnormal periosteal reaction. 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 Small joint effusion with suprapatellar fossa the right knee. Mild degenerative change of the right hip with joint narrowing. No soft tissue mass or focal abnormality. Previous history: She had COVID back in June 2020. She was admitted to [facility] for about 22 days. She she tells me it was complicated by pancreatitis. Further studies were negative for which immune, stone at that point. She reports that she did not feel normal since the COVID-19 infection as she ended up having G-tube for a while which was later removed. She lost some weight over the last few months by almost 40 lb. She has not felt well since then. She was admitted again 08/20/2020. Lipase was elevated. Initial CT abdomen did not show any peripancreatic inflammation. Imaging did show patchy airspace opacities bilaterally. Creatinine 1.8. O2 sat: Hypoxic. She was treated with steroids. Repeat CT did reveal acute interstitial pancreatitis. No evidence of necrosis or collection. As per revised Jayla classification, with no organ failure, no local or systemic complications. Does not drink alcohol. Status post cholecystectomy. Normal triglycerides. Concern was pancreatic malignancy. Autoimmune pancreatitis was ruled out. Was noted to have splenomegaly and platelet count of 90. Concern was undiagnosed cirrhosis, compensated, and portal hypertension. Doppler study did not reveal any thrombus in the portal venous system. Hospital course was complicated by acute kidney injury which resolved with IV hydration and improved oral intake. She still does not have an appetite. She still has symptoms of nausea and vomiting all the time. It has gotten better however she still not able to swallow solids. Even the liquids are hard to tolerate and sometimes come up. She has to take Zofran. She cannot tolerate Ensure nor Glucerna. She is trying to drink smoothies with protein powder in it along with some fruit. She has lost weight. She was 267 lb and now down to 221, since July. She feels exhausted. She has been noted to have mild pancytopenia since 08/17 5. She has been noted to be hypercalcemic. Since [id number], calcium has been between 8.9 and 9.9. 07/27: Calcium 10.3. It has been fluctuating since then. Calcium level 09/30/20:11.8. Albumin: 2.3. Actual calcium: 13.6. She used to be on calcium supplements: Vitamin-D 2000 internationally units and calcium plus vitamin-D 500 daily. Stopped that a few months ago. CT scan done in the emergency showing possible acute pancreatitis with mildly elevated pancreatic enzymes. Hospial course: Acute pancreatitis, manifested by elevated lipasse, CT finding, high calcium--thought be induced by hypercalcemia. Patient was seen by GI and managed conservatively with full recovery clinically and is tolerating diet now. Moderate Hypercalcemia-- Secondary to multiple myeloma. Treated with IVF and High dose steroid (decadron 40 IV) daily for 4 days. Constipation--due to hypercalcmeia--Treted with bowel regimen, colace, Mirilax, Senna. Pancytopenia Secondary to Multiple myeloma bone [place] biopsy done pending result. UTI: UCx Proteus. Treated with Ceftriaxone D3, switched to PO Ceftin for 7 days. Mild protein malnutrition: Low albumin 1.6. Increase in diet. Initially, she had Hypoglycemia secondary to Diabetes type 2: Discontinued Lantus 10 units, but then sugars were very high due steroids, so resumed upon discharge. DVT PPX: Lovenox was held. ROS: Fatigue. No fever. No appetite. Weight loss. Occasional headache. No shortness of breath but does get chest pain. Complains of pain in the abdomen in the upper middle area. Nausea and vomiting. Heartburn. Constipation. No gross blood in the stools. Occasional diarrhea. Increased urinary frequency. Had UTI in July. Complains of pain in her right knee which she is due for a replacement. Elbows and shoulders. Takes Tylenol. Legs have become weak. She has to walk with the help of her walker/wheelchair. Feels depressed. FAMILY HISTORY: A sister had cancer of breast, colon and polycythemia. SOCIAL HISTORY: She worked at [employer]. . Has 2 children. Denies smoking. Denies alcohol. Review of Systems - Constitutional Reports system reviewed and no additional complaints, except as documented, Reports fatigue, Reports lack of energy, Reports malaise, Reports weakness, Reports weight loss - Eyes Reports system reviewed and no additional complaints, except as documented - ENT Reports system reviewed and no additional complaints, except as documented - Cardiovascular Reports system reviewed and no additional complaints, except as documented - Respiratory Reports no additional respiratory complaints - Gastrointestinal Reports system reviewed and no additional complaints, except as documented - Genitourinary Reports no additional female genitourinary complaints - Musculoskeletal Reports system reviewed and no additional complaints, except as documented - Integumentary/Breasts Skin/Breast: Reports no additional skin complaints - Neurologic Reports system reviewed and no additional complaints, except as documented, Reports headache(s), Reports weakness - Psychiatric Reports system reviewed and no additional complaints, except as documented - Endocrine Reports no additional endocrine complaints - Hematologic/Lymphatic Reports system reviewed and no additional complaints, except as documented - Allergic/Immunologic Reports system reviewed and no additional complaints, except as documented Oncology Screenings - ECOG Performance Status ECOG Performance Status: 2 Home Medications and Allergies Home Medications Medication Instructions Recorded Confirmed Type aspirin 81 mg chewable tablet 81 mg PO DAILY 04/22/20 04/15/21 History insulin aspart U-100 100 unit/mL 4 - 24 unit SUBCUT TID 04/22/20 04/15/21 History (3 mL) subcutaneous pen omeprazole 20 mg capsule,delayed 20 mg PO BID 04/22/20 04/15/21 History release calcium carbonate 500 mg (1,250 1 tab PO BID 02/02/21 04/15/21 History mg)-vitamin D3 125 unit tablet duloxetine 20 mg capsule,delayed 1 cap PO DAILY 02/22/21 04/15/21 History release potassium chloride 20 mEq 40 meq PO DAILY 02/22/21 04/15/21 History tablet,extended release nystatin 100,000 unit/gram topical 1 appl TOPICAL TID 03/02/21 04/15/21 History powder Allergies Allergy/AdvReac Type Severity Reaction Status Date / Time codeine [CODEINE] Allergy Intermediate NAUSEA & Verified 02/22/21 14:30 VOMITING, vomiting lisinopril [LISINOPRIL] Allergy Intermediate COUGH, Verified 02/22/21 14:30 Coughing sulfamethoxazole Allergy Intermediate RASH Verified 02/22/21 14:30 [From BACTRIM] [place] And Derivatives Allergy Unknown Swelling Verified 03/12/21 10:17 Exam Vital signs: Vital Signs Temp 96.6 F L 02/09/21 09:50 Pulse 101 H 02/09/21 09:50 Resp 18 02/09/21 09:50 BP 122/64 02/09/21 09:50 Pulse Ox 99 02/09/21 09:50 Weight 105.5 kg Body Mass Index 38.7 - Constitutional Present: moderate distress - Routine HEENT Exam Head: Present: normal inspection - Routine Neck Exam Present: full ROM - Routine Respiratory Exam Present: CTAB - Routine Cardiovascular Exam Cardiovascular: Present: RRR, S1, S2 - Routine Abdominal Exam Present: nontender. Absent: tenderness - Routine Rectal Exam Patient deferred: digital exam - Routine Extremities Exam Present: nontender - Routine Back/Spine/Pelvis Exam Back/Spine: Present: full ROM - Routine Skin Exam Present: intact, rash - Routine Neurological Exam Present: alert, oriented X3 - Routine Psychiatric Exam Present: normal affect Data - Labs CBC & Chem 7: 03/02/21 10:30 03/02/21 10:30 Labs: 10/06/20 12:15 0.9 % Sodium Chloride [Ns] 1,000 ml IVCONT 500 mls/hr 10/06/20 12:25 Beta-2 Microglobulin, Serum Routine Complete Blood Count Man Dif Routine Comprehensive Met. Panel Routine Erythrocyte Sedimentation Rate Routine Immunofixation Pnl, Serum Routine [place]/Lambda Lt Ch,Free w rat Routine Laboratory Last Values WBC 2.4 X10*3/uL (4.8-10.8) L 10/06/20 12:25 RBC 3.46 X10*6/uL (4.20-5.50) L 10/06/20 12:25 Hgb 10.8 g/dl (12.0-16.0) L 10/06/20 12:25 Hct 33.7 % (37-47) L 10/06/20 12:25 MCV 97.4 fL (80-98) 10/06/20 12:25 MCH 31.2 pg (27.0-33.0) 10/06/20 12:25 MCHC 32.0 g/dl (31.0-35.0) 10/06/20 12:25 RDW 15.6 % (11.0-16.0) 10/06/20 12:25 Plt Count 94 X10*3/uL (160-400) L 10/06/20 12:25 MPV 11.0 fL (9.4-12.3) 10/06/20 12:25 Absolute Nucleated RBC 0.000 X10*3/uL (0.0-0.012) 10/06/20 12:25 Nucleated RBC % (auto) 0.0 /100WBC (0.0-0.2) 10/06/20 12:25 Neutrophils % (Manual) 42 % (45-73) L 10/06/20 12:25 Band Neutrophils % 0 % (3-5) L 10/06/20 12:25 Lymphocytes % (Manual) 50 % (20-40) H 10/06/20 12:25 Atypical Lymphs % (Man) 3 % (0-6) 10/06/20 12:25 Monocytes % (Manual) 5 % (2-11) 10/06/20 12:25 Abs Neuts (Manual) 1.0 X10*3/uL (2.2-7.9) L 10/06/20 12:25 Lymphocytes # (Manual) 1.2 X10*3/uL (0.6-4.8) 10/06/20 12:25 Atyp Lymphs # (Manual) 0.1 x10*3/uL 10/06/20 12:25 Monocytes # (Manual) 0.1 X10*3/uL (0.0-1.2) 10/06/20 12:25 Platelet Estimate DECREASED (NORMAL) 10/06/20 12:25 Large Platelets PRESENT 10/06/20 12:25 Plt Morphology Comment NOTED 10/06/20 12:25 RBC Morphology NORMAL 10/06/20 12:25 ESR 18 MM/HR (0-20) 10/06/20 12:25 Sodium 136 mmol/L (135-145) 10/06/20 12:25 Potassium 3.7 mmol/L (3.3-5.1) 10/06/20 12:25 Chloride 107 mmol/L (96-108) 10/06/20 12:25 Carbon Dioxide 22 mmol/L (22-29) 10/06/20 12:25 Anion Gap 11 (12-20) L 10/06/20 12:25 BUN 12 mg/dL (9-16) 10/06/20 12:25 Creatinine 1.28 mg/dL (0.5-1.4) 10/06/20 12:25 Estim Creat Clear Calc TNP 10/06/20 12:25 Estimated GFR 41 10/06/20 12:25 Random Glucose 130 mg/dL (60-115) H D 10/06/20 12:25 Calcium 11.2 mg/dL (8.4-10.2) H 10/06/20 12:25 Total Bilirubin 0.9 mg/dL (0.0-1.0) 10/06/20 12:25 AST 22 U/L (5-31) 10/06/20 12:25 ALT 13 U/L (0-31) 10/06/20 12:25 Alkaline Phosphatase 59 U/L (39-117) 10/06/20 12:25 Total Protein 7.7 g/dL (6.5-8.0) 10/06/20 12:25 Albumin 2.1 g/dL (3.5-5.0) L 10/06/20 12:25 Ucks-6-Uibxaibrvuwwj 22.59 mg/L (< OR = 2.51) H 10/06/20 12:25 IgG Total 4482 mg/dL (600-1540) H 10/06/20 12:25 IgA Total 21 mg/dL (70-320) L 10/06/20 12:25 IgM 27 mg/dL (50-300) L 10/06/20 12:25 ASHA Interpretation SEE NOTE 10/06/20 12:25 Free [place] LC, Quant 6036.3 mg/L (3.3-19.4) H 10/06/20 12:25 Free Lambda LC, Quant 10.3 mg/L (5.7-26.3) 10/06/20 12:25 Free [place]/Lambda Ratio 586.05 (0.26-1.65) H 10/06/20 12:25 Assessment and Plan Patient Active problem list reviewed?: Yes (1) Hypercalcemia Status: Acute (2) Multiple myeloma Status: Chronic Assessment and plan: DATABASE: 10/15: CBC: WBC 1.7, HGB 9, HCT 27.5, PLT 69. CMP: Lytes: WNL, glue to 79, BUN 23, CUSTOMER [employer]PERIENCE ANALYST 1.08. Venkat 9.3. LFTs: 0.8/39/20/14. This is a pleasant 75-year-old lady with a history of her diabetes, recent COVID infection back in June, complicated by interstitial pancreatitis, then presented with hypercalcemia. She had an SIEP done back in 2018: IgG: To 637, IgA: 66, IgM: 67. IgG kappa monoclonal band present. Urine IEP: Showed free light chains. Given the clinical picture, most likely she has multiple myeloma. I proceeded with further evaluation. I rechecked SIEP: IgG 4482, IgA 21, IgM 27. IgG kappa monoclonal band present. Free light chains present. Serum free light chain ratio: 586.05. Checked beta 2 microglobulin level for prognosis. (22.2.) l checked skeletal survey on10/06: No fracture or definite bony lesion. Osteopenia versus lucency in the right medial femoral shaft just inferior to the lesser trochanter and left distal femoral shaft. Left hip and knee replacements. Degenerative changes of the spine. Bone marrow exam from 10/14: Consistent with plasma cell myeloma. Plasma cells are 60-70% of marrow cellularity. Myeloma FISH panel: Dup(1q), Del (13), Del(17p), and t(4;14) were all detected.. l tried to proceed with a PET scan for further evaluation. It has been denied. Will do appear to appear. l tried to arrange for Denosumab, for hypercalcemia and multiple myeloma. However the insurance plan did not cover. I tried to do Peer to Peer, however the physician approved Zometa.Her dose comes to 3.5 mg. Will arrange for it later in the week. CT scan of the right femur revealed: No fracture. No bone destruction. No focal bone lesion. No abnormal periosteal reaction. 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 Small joint effusion with suprapatellar fossa the right knee. Mild degenerative change of the right hip with joint narrowing. No soft tissue mass or focal abnormality. Ultrasound of the right upper extremity revealed: There is occlusive thrombus in the distal basilic vein. She was advised to use warm compresses on it. l arranged for RVD based regimen. She was been started on it. She tells me that she was admitted to the hospital last week. She just got discharged the day before. She presented with abdominal pain, nausea and vomiting the week before. This worsened. She felt tired and lethargic. CT scan of the abdomen pelvis revealed:: * Findings compatible with acute uncomplicated edematous pancreatitis, similar in appearance to prior. * Diffuse hepatic steatosis. Mild anasarca. * Pancolonic diverticulosis without evidence of diverticulitis. * Mild splenomegaly. Hospital course: Patient was admitted with intractable nausea and vomitting likely related to pancreatitis. Other than that, work up was essentially unremarkable. Her electrolytes have been unremarkable. She was treated with antiemtics, hydration and slowly her diet was advanced and is tolerating regular diet now. She will be discharge with Zofran, reglan PRN and is planned to have chemotherapy 11/10. This may cause additional symptoms in the shourt term but ultimately will help in the long run. CT scan of the right femur revealed: No fracture. No bone destruction. No focal bone lesion. No abnormal periosteal reaction. 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 Small joint effusion with suprapatellar fossa the right knee. Mild degenerative change of the right hip with joint narrowing. No soft tissue mass or focal abnormality. She is home now. She is still having issues with diarrhea and deconditioning. Her IgG level her declined: On 10/06 it was 4482. On 10/23 it was 2933. Serum free light chain ratio: Was 586 in October, now down to 341. In addition, her myeloma appears to have been progressing. Her IgG Level from 01/26: 3039. Free light chain ratio: 341.16. There are other regimens recommended including daratumumab/lenalidomide and Decadron. And carfilzomib/Lenalidomide and Decadron. However due to her deteriorating condition, not sure if she would be able to tolerate it. That is the daughter's concern as well. After further discussion with her, Jenny, the daughter called me that they have come to a decision to forego chemotherapy at this point, and sign up with hospice care. PLAN: I will check her stool studies due to ongoing diarrhea to see if it is C diff, so that can be treated. Will arrange for hospice care at home. I gave her Diflucan po for the oral candidiasis. 25 minutes were spent coordinating her care including the tele interview, review of labs, review of imaging, setting up referrals and counseling the patient. Thanks, CC: Dr. Cowart. Dr. Dr. Givens. - Time Spent With Patient Time Spent with Patient (in minutes): 25
== END 2021-04-23 | disposition home or self-care (01) ==
LOC: HO.ONC 12:30
PROVIDERS: Internal Medicine; PCP Internal Medicine; Visit Provider Internal Medicine Medical Oncology
DX: C90.00 Multiple myeloma not having achieved remission (principal); E83.52 Hypercalcemia; I82.611 Acute embolism and thrombosis of superficial veins of right upper extremity; B37.0 Candidal stomatitis; Z51.5 Encounter for palliative care; Z86.16 Personal history of COVID-19
CPT/HCPCS: 36415; 36591; 80053; 82232; 82784; 83520; 85007; 85025; 85027; 85652; 86334; 96360; 96361; 96366; 96367; 96372; 96374; 96375; 96401; 99211; 99214; J1100; J1447; J1642; J2405; J3489; J9041

== ENCOUNTER 2021-04-22 15:14 | Inpatient (IN) | payer OTHER, SELFPAY ==
--- NOTE | ~2021-04-22 | XR_ITS ---
EXAMINATION: XR CHEST CLINICAL INFORMATION: Shortness of breath COMPARISON: Previous chest x-ray February 2021 TECHNIQUE: Frontal view of the chest was obtained. FINDINGS: The cardiac and mediastinal contours are stable. The lung volumes are low. The lungs are clear. There is no pleural effusion or pneumothorax. There is a right jugular port with tip projecting over the SVC. There are degenerative changes of the spine. XR/XR chest 1V IMPRESSION: No evidence for acute disease in the chest.
--- NOTE | 2021-04-22 15:27 | ECG_ITS ---
Test Reason : SOB Blood Pressure : / mmHG Vent. Rate : 130 BPM Atrial Rate : 122 BPM P-R Int : 000 ms QRS Dur : 070 ms QT Int : 286 ms P-R-T Axes : 000 -27 029 degrees QTc Int : 420 ms Sinus tachycardia Left axis deviation Low voltage QRS Abnormal ECG When compared with ECG of 06-MAR-2021 19:08, No significant changes seen Referred By: Peña Webber Electronically Signed By:EVARISTO CUMMINS MD
[2021-04-22 15:34] VITALS: BP 134/12; PULSE 127; RESP 32; TEMP 36.8; O2SAT 93; O2SAT 94; BMI 19.1
--- NOTE | 2021-04-22 15:44 | ED_ITS ---
HPI - General Adult General Chief complaint: Failure to Thrive Stated complaint: edema,failure to thrive,? dehydration per ems Time Seen by Provider: 04/22/21 15:26 Source: patient Mode of arrival: EMS Limitations: altered mental status History of Present Illness HPI narrative: This is a 75-year-old female who was brought in from home by EMS for failure to thrive and vomiting. The patient has a history of type 2 diabetes, on insulin, multiple myeloma, which the patient had been on chemotherapy for, but which the daughter says was stopped at the end of March due to lack of affect, also has a recent history of dehydration/acute kidney injury, admitted in February and discharged on March 16, subsequently went to a longterm and came home from there 9 days ago. Daughter reports that the patient has been increasingly weak, not taking much p.o., has chronic foot edema which is not new, seemed to have skin pallor as well as some cyanosis to her hands and feet today, dry heaves a few times at home. Daughter states that she is healthcare proxy and that if the patient needed to be on a ventilator that would be okay. The patient herself is unable to give any history due to her mental status and mild respiratory distress. She does not answer any questions meaningfully. She previously, per old records, had had neutropenic fever and diarrhea on her last admission Related Data Home Medications Medication Instructions Recorded Confirmed aspirin 81 mg chewable tablet 81 mg PO DAILY 04/22/20 04/15/21 insulin aspart U-100 100 unit/mL 4 - 24 unit SUBCUT TID 04/22/20 04/15/21 (3 mL) subcutaneous pen omeprazole 20 mg capsule,delayed 20 mg PO BID 04/22/20 04/15/21 release calcium carbonate 500 mg (1,250 1 tab PO BID 02/02/21 04/15/21 mg)-vitamin D3 125 unit tablet duloxetine 20 mg capsule,delayed 1 cap PO DAILY 02/22/21 04/15/21 release potassium chloride 20 mEq 40 meq PO DAILY 02/22/21 04/15/21 tablet,extended release nystatin 100,000 unit/gram topical 1 appl TOPICAL TID 03/02/21 04/15/21 powder Previous Rx's Medication Instructions Recorded acyclovir 400 mg tablet 400 mg PO DAILY #90 tab 10/26/20 ondansetron HCl 4 mg tablet 8 mg PO Q8H PRN #50 tab 10/26/20 (Zofran) atovaquone 750 mg/5 mL oral 1,500 mg PO DAILY #300 ml 10/29/20 suspension (Mepron) magnesium oxide 400 mg (241.3 mg 400 mg PO BIDPC #60 tab 11/26/20 magnesium) tablet hydrocortisone 2.5 % topical cream 1 appl SD DAILY PRN #100 g 03/02/21 with perineal applicator (Anusol-HC) sitz bath #1 ea 03/02/21 spironolactone 25 mg tablet 25 mg PO DAILY #30 tab 03/16/21 (Aldactone) fluconazole 100 mg tablet 100 mg PO DAILY #10 tab 04/16/21 (Diflucan) Allergies Allergy/AdvReac Type Severity Reaction Status Date / Time codeine [CODEINE] Allergy Intermediate NAUSEA & Verified 02/22/21 14:30 VOMITING, vomiting lisinopril [LISINOPRIL] Allergy Intermediate COUGH, Verified 02/22/21 14:30 Coughing sulfamethoxazole Allergy Intermediate RASH Verified 02/22/21 14:30 [From BACTRIM] Bee And Derivatives Allergy Unknown Swelling Verified 03/12/21 10:17 Review of Systems Review of Systems: Yes Unobtainable due to mental condition Constitutional: Constitutional: Reports as per HPI Neurologic: Denies Sensory deficit (Neuro) [facility] Past Medical History Medical History Diabetes mellitus type 2, controlled, without complications Essential hypertension Hypercalcemia Hyperlipidemia, unspecified Hypoglycemia unawareness associated with type 2 diabetes mellitus Obstructive sleep apnea Pancytopenia Streptococcal pneumonia Subclinical hyperthyroidism Surgical History History of knee replacement History of left hip replacement Family History Family History Father No problems noted. Mother Heart disease Brother Atrial fibrillation Brother Atrial fibrillation Brother Atrial fibrillation Social History Social History Household Members: Family Household Members Other:: 3 Housing: Unknown / Unable to assess Do you presently have visiting nurse or other home services: No Alcohol intake: never Patient Tobacco Use Status: Former Tobacco user Advance Directives: Yes Advance Directives on File: Yes Advance Directives Date on File: 10/09/20 service: No Current occupational status: disabled Physical Exam Vital Signs: Vital Signs: Last Vital Signs Temp 98.3 F 04/22/21 16:50 Pulse 132 H 04/22/21 18:07 Resp 30 H 04/22/21 18:07 BP 140/85 H 04/22/21 18:02 Pulse Ox 100 04/22/21 18:07 Oxygen Flow Rate 5 04/22/21 16:50 Body Mass Index 19.1 Const: Other: Patient morbidly obese, pale-appearing, groaning, in mild respiratory distress Nutritional Appearance: body habitus not average and overweight Orientation/consciousness: patient oriented x3 Limitations: No altered mental status (Opens eyes to stimulation but does not give any verbal response) HENMT: Head: Yes normal to inspection Eyes: General: appearance normal, both eyes and all related structures Eyelids: Yes eyelids normal Conjunctivae: conjunctivae normal Pupils: Equal, round and reactive pupils present Neck: Neck: Yes normal visual inspection and Yes supple Chest: Chest palpation & inspection: normal inspection of the chest Resp: Effort & Inspection: abnormal respiratory effort and tachypneic Auscultation: not clear to auscultation bilaterally (Possible decreased breath sounds left base, limited by body habitus) Cardio: Rate: abnormal rate and tachycardic Rhythm: regular rhythm Heart sounds: S1 normal heart sound present, S2 normal heart sound present, no gallops, no murmurs and no rubs GI: Palpation (GI): Soft to palpation, nontender and Other GI palpation findings present (Non-distended) Auscultation: normal bowel sounds Skin: General skin exam: no rashes or lesions noted Neuro: General: patient oriented x3, no focal motor deficits and CN's II-XI intact bilaterally Cranial nerves: Yes Equal, round and reactive pupils present Cognition (Neuro): normal cognition Motor exam (neuro): 5/5 motor strength present throughout Sensory Exam: No Sensory deficit (Neuro) Extrem: General: No no pedal edema (2+ pitting edema to her feet. Feet mildly cool to touch) Psych: Appearance: grossly normal Affect: normal affect Procedures EJ/Peripheral Line Neck L: Time Out Performed: Yes Skin Cleansed in Sterile Fashion: Yes Size (gauge): 20 IV Secured and Dressing Applied: Yes Patient Tolerated Procedure: well Additional Comments: Left-sided 20 g EJ line placed by ED MD Medical Decision Making MDM Narrative Medical decision making narrative: Patient persistently tachycardic, despite blood pressure improvement. Patient has evidence of metabolic acidosis, dehydration, troponin elevation which may be due to persistent tachycardia, versus recent NSTEMI. Patient's creatinine is increased as is her potassium, but the latter may be due to metabolic acidosis. I spoke with the patient's daughter or adjust after 18:00. This is Jenny Dow, who had been present in person earlier and was reached by phone now. I discussed the case with Dr. Ríos of critical care medicine who had suggested that if the patient had been taken off of chemotherapy, and in light of her severe metabolic acidosis and poor clinical status, that comfort care measures only might be indicated. I discussed this with the patient's daughter, who agreed with comfort care only measures that is making the patient comfortable but not treating underlying medical pathology. Critical care time for this life-threatening all this exclusive of all billable procedures was approximately 55 minutes, including manage the patient's hypertension, discussion with intensive is, discussion with the hospitalist, discussion with the patient's daughter. Note this patient based upon her vitals and lab findings did meet sepsis criteria. IV antibiotics fluid boluses were ordered however IV antibiotics were ultimately canceled due to the fact that the patient was made comfort care only. Patient was ordered to have normal saline 2 L IV, and initially Zosyn was ordered for sepsis, however the hospitalist said he preferred imipenem and vancomycin, but also said that patient might be considered for comfort measures only. After discussion with patient's daughter, as noted above. The patient was made CALL OUT CLERK. Lab Data Lab results reviewed: Yes I reviewed the patient's lab results. Result diagrams: 04/22/21 16:46 04/22/21 16:46 Labs: Lab Results 04/22/21 04/22/21 04/22/21 Range/Units 16:21 16:46 16:46 WBC 2.5 L (4.8-10.8) X10*3/uL RBC 3.05 L (4.20-5.50) X10*6/uL Hgb 10.0 L (12.0-16.0) g/dl Hct 31.2 L (37-47) % MCV 102.3 H (80-98) fL MCH 32.8 (27.0-33.0) pg MCHC 32.1 (31.0-35.0) g/dl RDW 19.8 H (11.0-16.0) % Plt Count 115 L D (160-400) X10*3/uL MPV 9.7 (9.4-12.3) fL Immature Gran % (Auto) Cancelled Neut % (Auto) Cancelled Lymph % (Auto) Cancelled [place] % (Auto) Cancelled Eos % (Auto) Cancelled Baso % (Auto) Cancelled Lymph # (Auto) Cancelled [place] # (Auto) Cancelled Eos # (Auto) Cancelled Baso # (Auto) Cancelled Abs Immat Gran (auto) Cancelled Absolute Neuts (auto) Cancelled Absolute Nucleated RBC 0.020 H (0.0-0.012) X10*3/uL Nucleated RBC % (auto) 0.8 H (0.0-0.2) /100WBC Neutrophils % (Manual) 28 L (45-73) % Band Neutrophils % 9 H (3-5) % Lymphocytes % (Manual) 61 H (20-40) % Monocytes % (Manual) 2 (2-11) % Abs Neuts (Manual) 0.9 L (2.2-7.9) X10*3/uL Lymphocytes # (Manual) 1.5 (0.6-4.8) X10*3/uL Monocytes # (Manual) 0.1 (0.0-1.2) X10*3/uL Nucleated RBCs 1 H (0-0) /100WBC Smudge Cells PRESENT Platelet Estimate SLIGHTLY DECREASED (NORMAL) Large Platelets PRESENT Giant Platelets PRESENT Plt Morphology Comment NOTED RBC Morphology NOTED Macrocytosis 2+ (15-30) /OIF Acanthocytes (Spur) 2+ (3-5) /OIF Sodium 128 L (135-145) mmol/L Potassium 6.3 H* D (3.3-5.1) mmol/L Chloride 111 H (96-108) mmol/L Carbon Dioxide 7 L* D (22-29) mmol/L Anion Gap 16 (12-20) BUN 25 H (9-16) mg/dL Creatinine 1.70 H (0.5-1.4) mg/dL Estim Creat Clear Calc 25.3 Estimated GFR 29 Random Glucose 68 (60-115) mg/dL Lactic Acid (0.5-2.0) mmol/L Calcium 7.4 L (8.4-10.2) mg/dL Magnesium (1.6-2.6) mg/dL Total Bilirubin 0.6 (0.0-1.0) mg/dL AST 21 (5-31) U/L ALT 14 (0-31) U/L Alkaline Phosphatase 79 D (39-117) U/L Troponin I High Sens (<3.5-17.0) ng/L B-Natriuretic Peptide (<100) pg/mL Total Protein 6.5 D (6.5-8.0) g/dL Albumin 1.1 L D (3.5-5.0) g/dL Urine Color Urine Appearance Urine pH (5.0-8.0) Ur Specific Section (1.005-1.025) Urine Protein (NEG-TRACE) MG/DL Urine Glucose (UA) (NEG) MG/DL Urine Ketones (NEG) MG/DL Urine Blood (NEG) Urine Nitrite (NEG) Ur Leukocyte Esterase (NEG) Urine RBC (0) /HPF Urine WBC (0-4) /HPF Ur Squamous Epith Cells /LPF Urine Bacteria /LPF Hyaline Casts /LPF Urine Mucus /LPF COVID-19 (RYAN) Negative (Negative) COVID-19 Clin Com See Note 04/22/21 04/22/21 04/22/21 Range/Units 16:46 16:46 16:46 WBC (4.8-10.8) X10*3/uL RBC (4.20-5.50) X10*6/uL Hgb (12.0-16.0) g/dl Hct (37-47) % MCV (80-98) fL MCH (27.0-33.0) pg MCHC (31.0-35.0) g/dl RDW (11.0-16.0) % Plt Count (160-400) X10*3/uL MPV (9.4-12.3) fL Immature Gran % (Auto) Neut % (Auto) Lymph % (Auto) [place] % (Auto) Eos % (Auto) Baso % (Auto) Lymph # (Auto) [place] # (Auto) Eos # (Auto) Baso # (Auto) Abs Immat Gran (auto) Absolute Neuts (auto) Absolute Nucleated RBC (0.0-0.012) X10*3/uL Nucleated RBC % (auto) (0.0-0.2) /100WBC Neutrophils % (Manual) (45-73) % Band Neutrophils % (3-5) % Lymphocytes % (Manual) (20-40) % Monocytes % (Manual) (2-11) % Abs Neuts (Manual) (2.2-7.9) X10*3/uL Lymphocytes # (Manual) (0.6-4.8) X10*3/uL Monocytes # (Manual) (0.0-1.2) X10*3/uL Nucleated RBCs (0-0) /100WBC Smudge Cells Platelet Estimate (NORMAL) Large Platelets Giant Platelets Plt Morphology Comment RBC Morphology Macrocytosis /OIF Acanthocytes (Spur) /OIF Sodium (135-145) mmol/L Potassium (3.3-5.1) mmol/L Chloride (96-108) mmol/L Carbon Dioxide (22-29) mmol/L Anion Gap (12-20) BUN (9-16) mg/dL Creatinine (0.5-1.4) mg/dL Estim Creat Clear Calc Estimated GFR Random Glucose (60-115) mg/dL Lactic Acid 12.0 H* (0.5-2.0) mmol/L Calcium (8.4-10.2) mg/dL Magnesium 1.8 (1.6-2.6) mg/dL Total Bilirubin (0.0-1.0) mg/dL AST (5-31) U/L ALT (0-31) U/L Alkaline Phosphatase (39-117) U/L Troponin I High Sens 41.8 H* D (<3.5-17.0) ng/L B-Natriuretic Peptide 872 H (<100) pg/mL Total Protein (6.5-8.0) g/dL Albumin (3.5-5.0) g/dL Urine Color Urine Appearance Urine pH (5.0-8.0) Ur Specific Section (1.005-1.025) Urine Protein (NEG-TRACE) MG/DL Urine Glucose (UA) (NEG) MG/DL Urine Ketones (NEG) MG/DL Urine Blood (NEG) Urine Nitrite (NEG) Ur Leukocyte Esterase (NEG) Urine RBC (0) /HPF Urine WBC (0-4) /HPF Ur Squamous Epith Cells /LPF Urine Bacteria /LPF Hyaline Casts /LPF Urine Mucus /LPF COVID-19 (RYAN) (Negative) COVID-19 Clin Com 04/22/21 Range/Units 17:15 WBC (4.8-10.8) X10*3/uL RBC (4.20-5.50) X10*6/uL Hgb (12.0-16.0) g/dl Hct (37-47) % MCV (80-98) fL MCH (27.0-33.0) pg MCHC (31.0-35.0) g/dl RDW (11.0-16.0) % Plt Count (160-400) X10*3/uL MPV (9.4-12.3) fL Immature Gran % (Auto) Neut % (Auto) Lymph % (Auto) [place] % (Auto) Eos % (Auto) Baso % (Auto) Lymph # (Auto) [place] # (Auto) Eos # (Auto) Baso # (Auto) Abs Immat Gran (auto) Absolute Neuts (auto) Absolute Nucleated RBC (0.0-0.012) X10*3/uL Nucleated RBC % (auto) (0.0-0.2) /100WBC Neutrophils % (Manual) (45-73) % Band Neutrophils % (3-5) % Lymphocytes % (Manual) (20-40) % Monocytes % (Manual) (2-11) % Abs Neuts (Manual) (2.2-7.9) X10*3/uL Lymphocytes # (Manual) (0.6-4.8) X10*3/uL Monocytes # (Manual) (0.0-1.2) X10*3/uL Nucleated RBCs (0-0) /100WBC Smudge Cells Platelet Estimate (NORMAL) Large Platelets Giant Platelets Plt Morphology Comment RBC Morphology Macrocytosis /OIF Acanthocytes (Spur) /OIF Sodium (135-145) mmol/L Potassium (3.3-5.1) mmol/L Chloride (96-108) mmol/L Carbon Dioxide (22-29) mmol/L Anion Gap (12-20) BUN (9-16) mg/dL Creatinine (0.5-1.4) mg/dL Estim Creat Clear Calc Estimated GFR Random Glucose (60-115) mg/dL Lactic Acid (0.5-2.0) mmol/L Calcium (8.4-10.2) mg/dL Magnesium (1.6-2.6) mg/dL Total Bilirubin (0.0-1.0) mg/dL AST (5-31) U/L ALT (0-31) U/L Alkaline Phosphatase (39-117) U/L Troponin I High Sens (<3.5-17.0) ng/L B-Natriuretic Peptide (<100) pg/mL Total Protein (6.5-8.0) g/dL Albumin (3.5-5.0) g/dL Urine Color DK YELLOW Urine Appearance CLEAR Urine pH 6.0 (5.0-8.0) Ur Specific Section >= 1.030 H (1.005-1.025) Urine Protein 2+ H (NEG-TRACE) MG/DL Urine Glucose (UA) NEG (NEG) MG/DL Urine Ketones NEG (NEG) MG/DL Urine Blood NEG (NEG) Urine Nitrite NEG (NEG) Ur Leukocyte Esterase NEG (NEG) Urine RBC 0-2 (0) /HPF Urine WBC 0 (0-4) /HPF Ur Squamous Epith Cells 1+ /LPF Urine Bacteria TRACE /LPF Hyaline Casts 1-4 /LPF Urine Mucus 1+ /LPF COVID-19 (RYAN) (Negative) COVID-19 Clin Com Imaging Data Chest x-ray: My impression: No acute disease Radiologist's impression: No acute pathology ECG Data Attestation: I personally reviewed and interpreted this ECG as follows: Prior ECG tracings: not available for review Interpretation: Low-voltage QRS, tachycardia with a rate of 130. Some baseline artifact, difficult to discern distinct P waves, though they do appear to be present in lead 3, likely sinus tachycardia. Q-waves in leads V1 and V2 and overall poor R-wave progression consistent with an old anterior infarct. Q- waves also needs 3 in AVF consistent with possible old inferior infarct. EKG overall appears similar to 1 dated 03/06/2021, low voltage was present on that EKG and overall pattern was similar Discharge Plan Discharge Clinical Impression: Acute hypotension, Tachycardia, Metabolic acidosis, Acute hyperkalemia, Elevated troponin level Patient Disposition: Admitted As Inpatient
[2021-04-22 16:41] LABS: COVID-19 Test Negative (Negative)
[2021-04-22] MEDS: 0.9 % Sodium Chloride 1,000 ML 999 ML IV ×3 (16:49→18:04)
[2021-04-22 16:50] VITALS: BP 63/36; PULSE 137; RESP 19; TEMP 36.8; O2SAT 98
[2021-04-22 16:52] LABS: Mean Corpuscular Volume 102.3 fL (80-98)
[2021-04-22 16:59] LABS: Hematocrit 31.2 % (37-47); Mean Corpuscular HGB Conc 32.1 g/dl (31.0-35.0); Mean Corpuscular Hemoglobin 32.8 pg (27.0-33.0); Mean Platelet Volume 9.7 fL (9.4-12.3); NRBC Pct Auto 0.8 /100WBC (0.0-0.2); Platelet Count 115 X10*3/uL (160-400); Red Blood Count 3.05 X10*6/uL (4.20-5.50); Red Cell Distribution Width 19.8 % (11.0-16.0)
--- NOTE | 2021-04-22 16:59 | PC.NURSE ---
Daughter (Jenny Dow) left: Phone #:
[2021-04-22 17:08] LABS: Magnesium 1.8 mg/dL (1.6-2.6)
[2021-04-22 17:22] LABS: WBC ABN SCTR FOR CBC 1
[2021-04-22 17:23] LABS: White Blood Count 2.5 X10*3/uL (4.8-10.8)
[2021-04-22 17:24] LABS: B Type Natriuretic Peptide 872 pg/mL (<100); Troponin-I High Sensitivity 41.8 ng/L (<3.5-17.0)
[2021-04-22 17:25] LABS: Alanine Aminotransferase 14 U/L (0-31); Albumin Level 1.1 g/dL (3.5-5.0); Alkaline Phosphatase 79 U/L (39-117); Anion Gap 16 (12-20); Aspartate Amino Transferase 21 U/L (5-31); Bilirubin Total 0.6 mg/dL (0.0-1.0); Blood Urea Nitrogen 25 mg/dL (9-16); Calcium 7.4 mg/dL (8.4-10.2); Carbon Dioxide 7 mmol/L (22-29); Chloride 111 mmol/L (96-108); Creatinine Clr Calc Pharmacy 25.3; Estimated Glomerular Filt Rate 29; Glucose Random 68 mg/dL (60-115); Potassium 6.3 mmol/L (3.3-5.1); Sodium 128 mmol/L (135-145); Total Protein 6.5 g/dL (6.5-8.0)
[2021-04-22 17:44] LABS: Appearance Urine CLEAR; Color Urine DK YELLOW; Glucose Urine UA NEG (NEG); Leukocyte Esterase Urine NEG (NEG); Nitrite Urine NEG (NEG); Specific Gravity - Urine >= 1.030 (1.005-1.025); UACC Culture Trigger NO; Urine Blood NEG (NEG); Urine Ketones NEG (NEG); Urine Protein 2+ MG/DL (NEG-TRACE)
[2021-04-22 18:02] VITALS: BP 140/85; PULSE 135; RESP 25; O2SAT 100
[2021-04-22 18:06] LABS: Mucus Urine 1+ /LPF; Squamous Epithelial Cell Urine 1+ /LPF
[2021-04-22 18:07] VITALS: PULSE 132; RESP 30; O2SAT 100
[2021-04-22 18:07] LABS: Bacteria Urine TRACE /LPF; RBC Urine 0-2 /HPF (0); WBC Urine 0 /HPF (0-4)
[2021-04-22 18:17] LABS: Band Neutrophils Percent 9 % (3-5); Lymphocytes Absolute Manual 1.5 X10*3/uL (0.6-4.8); Lymphocytes Percent Manual 61 % (20-40); Monocytes Absolute Manual 0.1 X10*3/uL (0.0-1.2); Monocytes Percent Manual 2 % (2-11); Neutrophils Absolute Manual 0.9 X10*3/uL (2.2-7.9); Neutrophils Percent Manual 28 % (45-73); Nucleated Red Blood Cells 1 /100WBC (0-0); RBC Morphology NOTED
[2021-04-22 18:18] LABS: Acanthocytes 2+ (3-5) /OIF; Giant Platelet PRESENT; Large Platelet PRESENT; Macrocytosis 2+ (15-30) /OIF; Platelet Estimate SLIGHTLY DECREASED (NORMAL); Platelet Morphology Comment NOTED; Smudge Cells PRESENT
[2021-04-22 18:50] LABS: Reflex Lactate? Lactic Acid Added
[2021-04-22] MEDS: fentaNYL citrate/PF 100 MCG/2 ML VIAL 50 MCG IVPUSH ×3 (19:18→21:57)
[2021-04-22 21:15] VITALS: RESP 18
[2021-04-22] MEDS: Morphine Sulfate 4 MG/ML CARTRIDGE IM (21:15)
[2021-04-22] MEDS: Scopolamine 1.5 MG PATCH.TD.3 TRANSDERMA (21:25)
[2021-04-22] MEDS: 0.9 % Sodium Chloride Flush 3 ML SYRINGE IVFLUSH (21:58)
--- NOTE | 2021-04-22 22:51 | P.HPHOSP_ITS ---
History of Present Illness Date of Service: 04/22/21 Chief Complaint: comfort measures 75-year-old female Patient with extensive past medical history that includes multiple myeloma, hypertension, diabetes, hypercalcemia, RADHA among others who presented to the hospital with multiple complaints including hypotension, tachycardia, metabolic acidosis, hyperkalemia with poor prognosis. 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 Therefore patient will be admitted for comfort measure. Patient is unresponsive and unable to give any history. Family at bedside. Spoke to daughter who is her healthcare proxy and would like patient to be completely comfortable and to initiate comfort measures. Patient will be admitted under comfort measures only Review of Systems Review of Systems: Yes Unobtainable due to mental condition and Unobtainable due to mental status PMFSH Medical History Diabetes mellitus type 2, controlled, without complications Essential hypertension Hypercalcemia Hyperlipidemia, unspecified Hypoglycemia unawareness associated with type 2 diabetes mellitus Obstructive sleep apnea Pancytopenia Streptococcal pneumonia Subclinical hyperthyroidism Family History Father No problems noted. Mother Heart disease Brother Atrial fibrillation Brother Atrial fibrillation Brother Atrial fibrillation Pertinent family history: No pertinent history Surgical History History of knee replacement History of left hip replacement Social History Household Members: Family Household Members Other:: 3 Housing: Unknown / Unable to assess Do you presently have visiting nurse or other home services: No Alcohol intake: never Patient Tobacco Use Status: Former Tobacco user Advance Directives: Yes Advance Directives on File: Yes Advance Directives Date on File: 10/09/20 service: No Current occupational status: disabled Meds Allergies Allergy/AdvReac Type Severity Reaction Status Date / Time codeine [CODEINE] Allergy Intermediate NAUSEA & Verified 02/22/21 14:30 VOMITING, vomiting lisinopril [LISINOPRIL] Allergy Intermediate COUGH, Verified 02/22/21 14:30 Coughing sulfamethoxazole Allergy Intermediate RASH Verified 02/22/21 14:30 [From BACTRIM] [place] And Derivatives Allergy Unknown Swelling Verified 03/12/21 10:17 Active Medications: Current Medications Acetaminophen (Acetaminophen 325 Mg Tablet) 650 mg PO Q6H PRN PRN Reason: Pain, Mild (Pain Scale 1-3) Fentanyl (Fentanyl Citrate/Pf 100 Mcg/2 Ml Vial) 50 mcg IVPUSH Q30M PRN; Protocol PRN Reason: Pain, Moderate (Pain Scale 4-6 Last Admin: 04/22/21 21:57 Dose: 50 mcg Documented by: Lorazepam (Lorazepam 1 Mg Tablet) 2 mg SUBLINGUAL Q4H PRN PRN Reason: anxiety/restlessness Morphine Sulfate (Morphine Sulfate 4 Mg/Ml Cartridge) 4 mg IM Q4H PRN PRN Reason: Discomfort/Shortness of breath Last Admin: 04/22/21 21:15 Dose: 4 mg Documented by: Ondansetron HCl (Ondansetron Hcl 4 Mg/2 Ml Vial) 4 mg IVPUSH Q8H PRN PRN Reason: Nausea and Vomiting Scopolamine (Scopolamine 1.5 Mg Patch.Td.3) 1.5 mg TRANSDERMA Q72H [facility] Last Admin: 04/22/21 21:25 Dose: 1.5 mg Documented by: Sodium Chloride (0.9 % Sodium Chloride Flush 3 Ml Syringe) 3 ml IVFLUSH QSHIFT [facility] Last Admin: 04/22/21 21:58 Dose: 3 ml Documented by: Home Medications Medication Instructions Recorded Confirmed Last Taken Type aspirin 81 mg chewable tablet 81 mg PO DAILY 04/22/20 04/15/21 02/22/21 History insulin aspart U-100 100 unit/mL 4 - 24 unit SUBCUT TID 04/22/20 04/15/21 Unknown History (3 mL) subcutaneous pen omeprazole 20 mg capsule,delayed 20 mg PO BID 04/22/20 04/15/21 02/22/21 History release calcium carbonate 500 mg (1,250 1 tab PO BID 02/02/21 04/15/21 02/22/21 History mg)-vitamin D3 125 unit tablet duloxetine 20 mg capsule,delayed 1 cap PO DAILY 02/22/21 04/15/21 02/22/21 History release potassium chloride 20 mEq 40 meq PO DAILY 02/22/21 04/15/21 02/22/21 History tablet,extended release nystatin 100,000 unit/gram topical 1 appl TOPICAL TID 03/02/21 04/15/21 Unknown History powder Physical Exam Vital Signs and Narrative: Vital Signs: Last Vital Signs Temp 98.3 F 04/22/21 16:50 Pulse 132 H 04/22/21 18:07 Resp 18 04/22/21 21:15 BP 140/85 H 04/22/21 18:02 Pulse Ox 100 04/22/21 18:07 Oxygen Flow Rate 5 04/22/21 16:50 Body Mass Index 19.1 Const: Other: Unresponsive , hard to awake Resp: Other: Tachypneic Cardio: Rate: regular rate Rhythm: regular rhythm GI: Other: No apparent discomfort on palpation Palpation (GI): Soft to palpation Skin: General skin exam: no rashes or lesions noted Neuro: Other: Unable to assess Extrem: General: Yes normal to inspection and Yes no pedal edema Results Labs CBC and Chem 7: 04/22/21 16:46 04/22/21 16:46 Labs: Laboratory Results - last 24 hr 04/22/21 04/22/21 04/22/21 16:21 16:46 16:46 MCV 102.3 H MCH 32.8 MCHC 32.1 RDW 19.8 H Plt Count 115 L D MPV 9.7 Immature Gran % (Auto) Cancelled Neut % (Auto) Cancelled Lymph % (Auto) Cancelled [place] % (Auto) Cancelled Eos % (Auto) Cancelled Baso % (Auto) Cancelled Lymph # (Auto) Cancelled [place] # (Auto) Cancelled Eos # (Auto) Cancelled Baso # (Auto) Cancelled Abs Immat Gran (auto) Cancelled Absolute Neuts (auto) Cancelled Absolute Nucleated RBC 0.020 H Nucleated RBC % (auto) 0.8 H Neutrophils % (Manual) 28 L Band Neutrophils % 9 H Lymphocytes % (Manual) 61 H Monocytes % (Manual) 2 Abs Neuts (Manual) 0.9 L Lymphocytes # (Manual) 1.5 Monocytes # (Manual) 0.1 Nucleated RBCs 1 H Smudge Cells PRESENT Platelet Estimate SLIGHTLY DECREASED Large Platelets PRESENT Giant Platelets PRESENT Plt Morphology Comment NOTED RBC Morphology NOTED Macrocytosis 2+ (15-30) Acanthocytes (Spur) 2+ (3-5) Anion Gap 16 Estim Creat Clear Calc 25.3 Estimated GFR 29 Random Glucose 68 Lactic Acid Calcium 7.4 L Magnesium Total Bilirubin 0.6 AST 21 ALT 14 Alkaline Phosphatase 79 D Troponin I High Sens B-Natriuretic Peptide Total Protein 6.5 D Albumin 1.1 L D Urine Color Urine Appearance Urine pH Ur Specific Gordon Urine Protein Urine Glucose (UA) Urine Ketones Urine Blood Urine Nitrite Ur Leukocyte Esterase Urine RBC Urine WBC Ur Squamous Epith Cells Urine Bacteria Hyaline Casts Urine Mucus COVID-19 (RYAN) Negative COVID-19 Clin Com See Note 04/22/21 04/22/21 04/22/21 16:46 16:46 16:46 MCV MCH MCHC RDW Plt Count MPV Immature Gran % (Auto) Neut % (Auto) Lymph % (Auto) [place] % (Auto) Eos % (Auto) Baso % (Auto) Lymph # (Auto) [place] # (Auto) Eos # (Auto) Baso # (Auto) Abs Immat Gran (auto) Absolute Neuts (auto) Absolute Nucleated RBC Nucleated RBC % (auto) Neutrophils % (Manual) Band Neutrophils % Lymphocytes % (Manual) Monocytes % (Manual) Abs Neuts (Manual) Lymphocytes # (Manual) Monocytes # (Manual) Nucleated RBCs Smudge Cells Platelet Estimate Large Platelets Giant Platelets Plt Morphology Comment RBC Morphology Macrocytosis Acanthocytes (Spur) Anion Gap Estim Creat Clear Calc Estimated GFR Random Glucose Lactic Acid 12.0 H* Calcium Magnesium 1.8 Total Bilirubin AST ALT Alkaline Phosphatase Troponin I High Sens 41.8 H* D B-Natriuretic Peptide 872 H Total Protein Albumin Urine Color Urine Appearance Urine pH Ur Specific Gordon Urine Protein Urine Glucose (UA) Urine Ketones Urine Blood Urine Nitrite Ur Leukocyte Esterase Urine RBC Urine WBC Ur Squamous Epith Cells Urine Bacteria Hyaline Casts Urine Mucus COVID-19 (RYAN) COVID-19 Clin Com 04/22/21 17:15 MCV MCH MCHC RDW Plt Count MPV Immature Gran % (Auto) Neut % (Auto) Lymph % (Auto) [place] % (Auto) Eos % (Auto) Baso % (Auto) Lymph # (Auto) [place] # (Auto) Eos # (Auto) Baso # (Auto) Abs Immat Gran (auto) Absolute Neuts (auto) Absolute Nucleated RBC Nucleated RBC % (auto) Neutrophils % (Manual) Band Neutrophils % Lymphocytes % (Manual) Monocytes % (Manual) Abs Neuts (Manual) Lymphocytes # (Manual) Monocytes # (Manual) Nucleated RBCs Smudge Cells Platelet Estimate Large Platelets Giant Platelets Plt Morphology Comment RBC Morphology Macrocytosis Acanthocytes (Spur) Anion Gap Estim Creat Clear Calc Estimated GFR Random Glucose Lactic Acid Calcium Magnesium Total Bilirubin AST ALT Alkaline Phosphatase Troponin I High Sens B-Natriuretic Peptide Total Protein Albumin Urine Color DK YELLOW Urine Appearance CLEAR Urine pH 6.0 Ur Specific Gordon >= 1.030 H Urine Protein 2+ H Urine Glucose (UA) NEG Urine Ketones NEG Urine Blood NEG Urine Nitrite NEG Ur Leukocyte Esterase NEG Urine RBC 0-2 Urine WBC 0 Ur Squamous Epith Cells 1+ Urine Bacteria TRACE Hyaline Casts 1-4 Urine Mucus 1+ COVID-19 (RYAN) COVID-19 Clin Com Imaging Radiologist's Impressions: Impressions Chest X-Ray 04/22/21 15:28 IMPRESSION: No evidence for acute disease in the chest. Assessment and Plan (1) Comfort measures only status: Status: Acute This is a 75-year-old female with an extensive past medical history as above who is admitted to the hospital for comfort measures only She presented with hypotension, tachycardia, metabolic acidosis as well as hypoxic respiratory failure made MARKETING OPERATIONS ASSISTANT by her daughter who is her healthcare proxy Patient passed at 1:00 a.m. Quality Stroke Does the patient have a stroke diagnosis?: No VTE Prior VTE?: No VTE Risk Level:: Medical - moderate - high VTE Device Contraindication: Treatment Not Indicated VTE Drug Contraindication: Treatment Not Indicated
[2021-04-22 23:39] VITALS: RESP 20; TEMP 36.6; O2SAT 88
--- NOTE | 2021-04-23 10:08 | P.CDIR_ITS ---
Retrospective Query PHYSICIAN'S DOCUMENTATION REQUEST Date of Query: 04/23/21 1009 Patient Name: Klaudia Dow Admit Date: 04/22/21 Dear Doctor, A review of the medical record indicates additional documentation may be needed. Please review below and update the documentation accordingly. Clinical Indicators: The following information is noted in the medical record: Risk Factors/Clinical Indicators/Treatments Patient is unresponsive and unable to give any history.? Altered mental status, unresponsive Based on the above, could you clarify in the Progress Notes which, if any of the following, best reflects the patient's level of consciousness? * Unconscious * Comatose * Persistent vegetative state * Transient level of awareness * Other (please specify) * Unable to determine Use of terms such as suspected, likely, concern for, or probable (associated with a specific diagnosis that is being evaluated, monitored, or treated as if it exists) are acceptable and can be coded in the inpatient setting, when documented at the time of discharge. Thank you, Miracle Snyder RN Extension: [phone] Please use your independent medical judgment in providing your response. THIS QUERY IS PART OF THE PERMANENT MEDICAL RECORD
--- NOTE | 2021-04-23 10:13 | P.CDIR_ITS ---
Retrospective Query PHYSICIAN'S DOCUMENTATION REQUEST Date of Query: 04/23/21 1013 Patient Name: Klaudia Dow Admit Date: 04/22/21 Dear Doctor, A review of the medical record indicates additional documentation may be needed. Please review below and update the documentation accordingly. Risk Factors/Clinical Indicators/Treatments Mild respiratory distress per PN Respiratory rate 30 5 liters oxygen LA 12.0 If possible, please further clarify the type and acuity of respiratory failure: Type: * Respiratory failure with hypoxia * Respiratory failure with hypercapnia * Respiratory failure with hypoxia and hypercapnia * Other (please specify) * Unable to determine Acuity: * Acute * Chronic * Acute on chronic * Unable to determine Use of terms such as suspected, likely, concern for, or probable (associated with a specific diagnosis that is being evaluated, monitored, or treated as if it exists) are acceptable and can be coded in the inpatient setting, when documented at the time of discharge. Thank you, Miracle Snyder RN Extension: [phone] Please use your independent medical judgment in providing your response. THIS QUERY IS PART OF THE PERMANENT MEDICAL RECORD
--- NOTE | 2021-04-23 10:17 | P.CDIR_ITS ---
Retrospective Query PHYSICIAN'S DOCUMENTATION REQUEST Date of Query: 04/23/21 1017 Patient Name: Klaudia Dow Admit Date: 04/22/21 Dear Doctor, A review of the medical record indicates additional documentation may be needed. Please review below and update the documentation accordingly. Clinical Indicators: The following clinical information was noted in the record: Risk Factors/Clinical Indicators/Treatments BUN 25 Creatinine 1.70 Please clarify which of the following accurately represents the patient's renal status: * Acute renal failure - see criteria * Acute renal failure with suspected ATN * Acute renal failure with other pathology (medullary, papillary, or cortical necrosis) * Acute renal failure (with type, appropriate) on Chronic Kidney Disease (CKD) - see criteria * Acute kidney injury (non-traumatic) - see criteria * CKD, please provide stage - see criteria * ESRD - CKD V now requiring permanent dialysis and/or transplant * Other (please specify) * Unable to determine Criteria for LORI* Stages of Chronic Kidney Disease* 1. Increase in serum creatinine by ? 0.3 mg/dL Level Description GFR (?26.5 micromol/L) within 48 hours, or G1 Normal or High > 90 2. Increase in serum creatinine to ?1.5 times baseline, G2 Mildly decreased 60 ? 89 which is known or presumed to have occurred within 7 days, or G3a Mildly to moderately decreased 45 ? 59 3. Urine volume <0.5 mL/kg/hour for six hours G3b Moderately to severely decreased 30 - 44 G4 Severely decreased 15 ? 29 G5 Kidney failure < 15 *Source: Kidney Disease: Improving Global Outcomes (KDIGO) 2012 Use of terms such as suspected, likely, concern for, or probable (associated with a specific diagnosis that is being evaluated, monitored, or treated as if it exists) are acceptable and can be coded in the inpatient setting, when documented at the time of discharge. Thank you, Miracle Snyder RN Extension: [phone] Please use your independent medical judgment in providing your response. THIS QUERY IS PART OF THE PERMANENT MEDICAL RECORD
--- NOTE | 2021-11-17 23:05 | P.DS_ITS ---
DS: Providers Provider Date of Service: 04/23/21 Date of admission: 04/23/21 03:30 Primary care physician: Iveth Cowart MD Consults: 04/22/21 17:58 Consult to Infectious Diseases Routine Consulting Provider: Elvia Alvarez Reason for consultation: sepsis Has provider been notified: No DS: Diagnosis Discharge Diagnosis (1) Comfort measures only status: Status: Acute DS: Summary Hospital Course Hospital Course: 75-year-old female Patient with extensive past medical history that includes multiple myeloma, hypertension, diabetes, hypercalcemia, RADHA among others who presented to the hospital with multiple complaints including hypotension, tachycardia, metabolic acidosis, hyperkalemia with poor prognosis.? 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 Therefore patient will be admitted for comfort measure.? Patient is unresponsive and unable to give any history.? Family at bedside.? Spoke to daughter who is her healthcare proxy and would like patient to be completely comfortable and to initiate comfort measures. Pt at 3:27AM with her family at bedside Time Spent with Patient Time attestation: Total time spent providing and/or coordinating discharge services: Discharge coordination time: Greater than 30 minutes Quality: Safe Use of Opioids Does Pt have an Active Cancer Diagnosis on the Problem List?: No Quality: Stroke Does the patient have a stroke diagnosis?: No Physical Exam Vital Signs: Vital Signs: Last Vital Signs Temp 97.9 F 04/22/21 23:39 Pulse 132 H 04/22/21 18:07 Resp 20 04/22/21 23:39 BP 140/85 H 04/22/21 18:02 Pulse Ox 88 L 04/22/21 23:39 Oxygen Flow Rate 5 04/22/21 16:50 BMI result Body Mass Index 19.1 DS: Data Data Completed and Pending Completed studies during hospitalization [Text1]: Procedures Extraction of Iliac Bone Marrow, Percutaneous Approach, Diagnostic (10/09/20) Transfusion of Nonautologous Red Blood Cells into Peripheral Vein, Percutaneous Approach (03/03/21) Discharge Plan Discharge Date/Time: 04/23/21 01:50 Patient Disposition: Discharge Diagnosis: Comfort measure Referrals: Iveth Cowart MD [Primary Care Provider] - 1 Week Discharge Medications: No Action ondansetron HCl [Zofran] 4 mg Tablet 8 mg PO Q8H PRN (Reason: Nausea And Vomiting) Qty: 50 4RF acyclovir 400 mg Tablet 400 mg PO DAILY Qty: 90 4RF magnesium oxide 400 mg (241.3 mg magnesium) Tablet 400 mg PO BIDPC Qty: 60 0RF calcium carbonate-vitamin D3 500 mg(1,250mg) -125 unit Tablet 1 tab PO BID 0RF hydrocortisone [Anusol-HC] 2.5 % Cream With Perineal Applicator 1 appl [place] DAILY PRN (Reason: Pain) Qty: 100 0RF (DME) sitz bath Kit Qty: 1 0RF Rx Instructions: As Directed fluconazole [Diflucan] 100 mg Tablet 100 mg PO DAILY Qty: 10 2RF Rx Instructions: Take 200 mg the 1st day, then 100 mg daily. atovaquone [Mepron] 750 mg/5 mL Suspension 1,500 mg PO DAILY Qty: 300 6RF Rx Instructions: must administer with food, preferably a high-fat meal duloxetine 20 mg capsule,delayed release(DR/EC) 1 cap PO DAILY 0RF potassium chloride 20 mEq tablet extended release 40 meq PO DAILY 0RF nystatin 100,000 unit/gram powder 1 appl topical TID 0RF spironolactone [Aldactone] 25 mg tablet 25 mg PO DAILY Qty: 30 0RF aspirin 81 mg tablet,chewable 81 mg PO DAILY 0RF insulin aspart U-100 100 unit/mL (3 mL) insulin pen 4 - 24 unit subcut TID 0RF omeprazole 20 mg capsule,delayed release(DR/EC) 20 mg PO BID 0RF Discharge Date/Time: 04/23/21 04:06
== END 2021-04-23 04:06 | disposition expired | DRG 862 ==
LOC: HO.ED 15:44 → HO.IMC 20:05
PROVIDERS: Admitting Provider Internal Medicine; Emergency Provider Emergency Medicine; PCP Internal Medicine; Visit Provider Internal Medicine
DX: Z51.5 Encounter for palliative care (principal); E87.2 Acidosis; C90.00 Multiple myeloma not having achieved remission; I95.9 Hypotension, unspecified; E11.9 Type 2 diabetes mellitus without complications; E86.0 Dehydration; E83.52 Hypercalcemia; E87.5 Hyperkalemia; Z87.891 Personal history of nicotine dependence; G47.33 Obstructive sleep apnea (adult) (pediatric); Z20.822 Contact with and (suspected) exposure to COVID-19; Z79.82 Long term (current) use of aspirin; Z88.2 Allergy status to sulfonamides; Z88.5 Allergy status to narcotic agent; Z79.4 Long term (current) use of insulin; Z79.899 Other long term (current) drug therapy
CPT/HCPCS: 36415; 71045; 80053; 81001; 83605; 83735; 83880; 84484; 85007; 85025; 85027; 87040; 87077; 87186; 87205; 87635; 93005; 99285; J2270; J3010